=== PATIENT | female | born 1945 | race Asian ===

== ENCOUNTER → 2016-07-15 | Outpatient (CLI) | payer MEDICARE ==
[~2016-07-15] MED LIST: CYAN10007 PO; DIPH25CA79 PO; PANT40TA2 PO
[2016-07-15 12:11] LABS: BLOOD UREA NITROGEN 15 MG/DL (7-18); BUN/CREATININE RATIO 18; CREATININE SERUM 0.84 MG/DL (0.60-1.30); GFR ESTIMATED > 60
[2016-07-15] MEDS: GADOBUTROL 7.5 MMOL/7.5 ML (GADAVIST) VIAL IV ONE (12:33)
--- NOTE | 2016-07-15 18:42 | Diagnostic Imaging Report ---
PROCEDURE: MR imaging of the brain with and without contrast. INDICATION: Asymmetrical left-sided hearing loss. Patient reports that this has resolved. Now with back pain and balance problems. TECHNIQUE: Multiplanar, multisequence MR imaging of the brain was performed with and without contrast. CORRELATION STUDY: None. FINDINGS: There are no restricted areas of diffusion to suggest acute ischemia. Ventricles and sulci are age appropriate. Relatively normal lima-white signal differentiation. There are a few scattered areas of hyperintense T2 signal change, nonspecific but fairly mild, may be reflective of senescent changes, perhaps some small vessel ischemic disease. No edema pattern. No midline shift or mass effect. No significant abnormal gradient-echo signal characteristics. Post contrast imaging without abnormal intracranial enhancement. Craniocervical junction and midline structures including sella are unremarkable. There is not well visualization of the distal right vertebral artery with what appears to be dominant distal left vertebral artery. Normal expected intracranial flow voids otherwise present. Imaging through the level of the midbrain structures and internal auditory canals has an unremarkable appearance. There is no cerebellopontine angle mass lesion. Visualized seventh and eighth cranial nerve complex as well as internal auditory canals are unremarkable. Inner ear structures are unremarkable. IMPRESSION: Overall relatively unremarkable pre post contrast MRI examination of the brain. No acute intracranial abnormality. Dictated on workstation # [id number]
== END | disposition home or self-care (01) ==
LOC: RAD 11:14
PROVIDERS: ATTEND Otolaryngology Otolaryngology/Facial Plastic Surgery
DX: H91.92 Unspecified hearing loss, left ear (principal); R47.89 Other speech disturbances
CPT/HCPCS: 36415; 70553; 82565; 84520

== ENCOUNTER → 2016-12-02 | Outpatient (CLI) | payer MEDICARE ==
[2016-12-02 09:58] LABS: BASOPHILS % (AUTO) 1 % (0-10); EOSINOPHILS # (AUTO) 0.1 10^3/uL (0.0-0.3); EOSINOPHILS % (AUTO) 3 % (0-10); LYMPHOCYTES # (AUTO) 1.6 X 10^3 (1.0-4.0); LYMPHOCYTES % (AUTO) 38 % (12-44); MEAN CORPUSCULAR HEMOGLOBIN 30 PG (25-34); MEAN CORPUSCULAR HGB CONC 34 G/DL (32-36); MEAN CORPUSCULAR VOLUME 88 FL (80-99); MEAN PLATELET VOLUME 11.2 FL (7.4-10.4); MONOCYTES # (AUTO) 0.3 X 10^3 (0.0-1.0); MONOCYTES % (AUTO) 6 % (0-12); NEUTROPHILS # (AUTO) 2.2 X 10^3 (1.8-7.8); NEUTROPHILS % (AUTO) 52 % (42-75); PLATELET COUNT 199 10^3/uL (130-400); RED BLOOD COUNT 5.08 10^6/uL (4.35-5.85); RED CELL DISTRIBUTION WIDTH 12.9 % (10.0-14.5); WHITE BLOOD COUNT 4.3 10^3/uL (4.3-11.0)
[2016-12-02 10:19] LABS: ALANINE AMINOTRANSFERASE 16 U/L (0-55); ALBUMIN 4.2 GM/DL (3.2-4.5); ANION GAP 10 MMOL/L (5-14); ASPARTATE AMINO TRANSFERASE 15 U/L (5-34); BILIRUBIN,DIRECT 0.2 MG/DL (0.0-0.3); BILIRUBIN,INDIRECT 0.3 MG/DL; BILIRUBIN,TOTAL 0.5 MG/DL (0.1-1.0); BLOOD UREA NITROGEN 16 MG/DL (7-18); BUN/CREATININE RATIO 21; CALCIUM 9.2 MG/DL (8.5-10.1); CARBON DIOXIDE 23 MMOL/L (21-32); CHLORIDE 107 MMOL/L (98-107); CHOLESTEROL 215 MG/DL (< 200); CREATININE SERUM 0.75 MG/DL (0.60-1.30); DIRECT LDL 153 MG/DL (1-129); GFR ESTIMATED > 60; GLUCOSE 107 MG/DL (70-105); SODIUM 140 MMOL/L (135-145); TOTAL PROTEIN 7.9 GM/DL (6.4-8.2); TRIGLYCERIDES 124 MG/DL (<150); VLDL CHOLESTEROL 25 MG/DL (5-40)
[2016-12-03 13:24] LABS: VITAMIN D 25-HYDROXY (TOTAL) 32 ng/mL (30-100)
== END ==
LOC: LAB 09:15
PROVIDERS: ATTEND Family Medicine
DX: E78.5 Hyperlipidemia, unspecified (principal); D64.9 Anemia, unspecified; E55.9 Vitamin D deficiency, unspecified; R74.8 Abnormal levels of other serum enzymes; R73.9 Hyperglycemia, unspecified
CPT/HCPCS: 36415; 80053; 80061; 80076; 82248; 82306; 82607; 83036; 83540; 84439; 84443; 85025

== ENCOUNTER → 2017-08-22 | Outpatient (CLI) | payer MEDICARE ==
[2017-08-22 14:15] LABS: BASOPHILS % (AUTO) 1 % (0-10); EOSINOPHILS # (AUTO) 0.1 10^3/uL (0.0-0.3); EOSINOPHILS % (AUTO) 3 % (0-10); HEMATOCRIT 42 % (35-52); LYMPHOCYTES # (AUTO) 1.7 X 10^3 (1.0-4.0); LYMPHOCYTES % (AUTO) 34 % (12-44); MEAN CORPUSCULAR HEMOGLOBIN 30 PG (25-34); MEAN CORPUSCULAR HGB CONC 33 G/DL (32-36); MEAN CORPUSCULAR VOLUME 89 FL (80-99); MEAN PLATELET VOLUME 10.9 FL (7.4-10.4); MONOCYTES # (AUTO) 0.4 X 10^3 (0.0-1.0); MONOCYTES % (AUTO) 7 % (0-12); NEUTROPHILS # (AUTO) 2.8 X 10^3 (1.8-7.8); NEUTROPHILS % (AUTO) 56 % (42-75); PLATELET COUNT 190 10^3/uL (130-400); RED BLOOD COUNT 4.72 10^6/uL (4.35-5.85); RED CELL DISTRIBUTION WIDTH 12.8 % (10.0-14.5); WHITE BLOOD COUNT 5.1 10^3/uL (4.3-11.0)
[2017-08-22 14:33] LABS: ALANINE AMINOTRANSFERASE 20 U/L (0-55); ALBUMIN 4.1 GM/DL (3.2-4.5); ALKALINE PHOSPHATASE 83 U/L (40-136); BILIRUBIN,TOTAL 0.3 MG/DL (0.1-1.0); BUN/CREATININE RATIO 15; CALCIUM 9.1 MG/DL (8.5-10.1); CARBON DIOXIDE 21 MMOL/L (21-32); CHLORIDE 111 MMOL/L (98-107); CREATININE SERUM 0.78 MG/DL (0.60-1.30); GFR ESTIMATED > 60; GLUCOSE 144 MG/DL (70-105); POTASSIUM 3.9 MMOL/L (3.6-5.0); SODIUM 141 MMOL/L (135-145); TOTAL PROTEIN 7.5 GM/DL (6.4-8.2)
[2017-08-23 07:50] LABS: HEPATITIS C ANTIBODY C Non-Reactive (Non-Reactive)
== END ==
LOC: LAB 13:52
PROVIDERS: ATTEND Family Medicine
DX: R42 Dizziness and giddiness (principal); R73.9 Hyperglycemia, unspecified; R10.13 Epigastric pain
CPT/HCPCS: 36415; 80053; 83036; 84443; 85025; 86803

== ENCOUNTER 2017-12-10 10:02 | Emergency (ER) | payer MEDICARE ==
[~2017-12-10] VITALS: Ht 152.4 cm; Wt 52.2 kg
--- OUTSIDE RECORDS SUMMARY | 2017-12-10 10:08 | XMS REPORT | Continuity of Care Document ---
Author Author [facility] Organization [facility] Address Unknown Phone Unavailable Allergies Active Description Code Type Severity Reaction Onset Reported/Identified Relationship to Patient Clinical Status Yes No Known Drug Allergies [id number] Drug Allergy Unknown N/A 04/29/2015 Medications There is no data. Problems Date Dx Coded Attending Type Code Diagnosis Diagnosed By 04/01/2015 Ot 268.9 04/01/2015 Ot 780.79 04/01/2015 Ot 790.29 04/01/2015 Ot 786.50 04/01/2015 Ot 268.9 04/01/2015 Ot 719.41 04/01/2015 Ot 780.79 04/01/2015 Ot 785.1 04/01/2015 Ot 790.29 04/01/2015 ARIELLA SWEENEY DOQUELINE S Ot 250.00 04/01/2015 KATYNDTRIP DO, NICANOR S Ot 268.9 04/01/2015 KATYNDTRIP DOARIELLANICANOR S Ot 285.9 04/01/2015 KATYNDTRIP DOARIELLANICANOR S Ot 780.79 04/01/2015 KATYNDTRIP DO, NICANOR S Ot 268.9 04/01/2015 KATYNDTRIP DO, NICANOR S Ot 272.4 04/01/2015 KATYNDTRIP DOARIELLANICANOR S Ot 733.90 04/01/2015 KATYNDER DO, NICANOR S Ot 790.29 04/01/2015 MARY SALGADO DO Ot T78.3XXA ANGIONEUROTIC EDEMA, INITIAL ENCOUNTER 04/02/2015 Ot 268.9 04/02/2015 Ot 780.79 04/02/2015 Ot 790.29 04/02/2015 Ot 786.50 04/02/2015 Ot 268.9 04/02/2015 Ot 719.41 04/02/2015 Ot 780.79 04/02/2015 Ot 785.1 04/02/2015 Ot 790.29 04/02/2015 ORENDER DO, NICANOR S Ot 250.00 04/02/2015 [facility] S Ot 268.9 04/02/2015 [facility], NICANOR S Ot 285.9 04/02/2015 [facility], NICANOR S Ot 780.79 04/02/2015 [facility]END DO, NICANOR S Ot 268.9 04/02/2015 [facility], NICANOR S Ot 272.4 04/02/2015 [facility] DO, NICANOR S Ot 733.90 04/02/2015 [facility], NICANOR S Ot 790.29 04/02/2015 Ot 268.9 04/02/2015 Ot 780.79 04/02/2015 Ot 790.29 04/02/2015 Ot 786.50 04/02/2015 Ot 268.9 04/02/2015 Ot 719.41 04/02/2015 Ot 780.79 04/02/2015 Ot 785.1 04/02/2015 Ot 790.29 04/02/2015 [facility], NICANOR S Ot 250.00 04/02/2015 [facility] DO, NICANOR S Ot 268.9 04/02/2015 [facility] DO, NICANOR S Ot 285.9 04/02/2015 [facility] DO, NICANOR S Ot 780.79 04/02/2015 [facility] DO, NICANOR S Ot 268.9 04/02/2015 [facility] DO, NICANOR S Ot 272.4 04/02/2015 [facility] DO, NICANOR S Ot 733.90 04/02/2015 [facility] DO, NICANOR S Ot 790.29 04/22/2015 [facility] DO, NICANOR S Ot E55.9 04/22/2015 [facility], NICANOR S Ot E83.19 04/22/2015 [facility], NICANOR S Ot R73.9 04/22/2015 [facility], NICANOR S Ot Z00.00 04/24/2015 AMMON GUAJARDO MD Ot Z01.818 ENCOUNTER FOR OTHER PREPROCEDURAL EXAMIN 04/27/2015 AMMON GUAJARDO MD Ot Z01.818 04/29/2015 AMMON GUAJARDO MD Ot K21.0 GASTRO-ESOPHAGEAL REFLUX DISEASE WITH ES 04/29/2015 CASANDRA LOU, AMMON Ot K29.70 GASTRITIS, UNSPECIFIED, WITHOUT BLEEDING 04/29/2015 CASANDRA LOU, AMMON Anderson K44.9 DIAPHRAGMATIC HERNIA WITHOUT OBSTRUCTION 04/29/2015 CASANDRA LOU, AMMON Ot K57.90 DVRTCLOS OF INTEST, PART UNSP, W/O PERF 04/29/2015 AMMON GUAJARDO MD, Ot K64.0 FIRST DEGREE HEMORRHOIDS 04/29/2015 CASANDRA LOU, AMMON Anderson Z09 ENCNTR FOR F/U EXAM AFT TRTMT FOR COND O 04/29/2015 AMMON GUAJARDO MD, Ot Z12.11 ENCOUNTER FOR SCREENING FOR MALIGNANT NE 04/29/2015 CASANDRA LOU, MAMON Anderson Z86.010 PERSONAL HISTORY OF COLONIC POLYPS 04/30/2015 AMMON GUAJARDO MD Ot K21.0 04/30/2015 CASANDRA LOU, AMMON Ot K29.70 04/30/2015 CASANDRA LOU, AMMON Ot K44.9 04/30/2015 CASANDRA LOU, AMMON Ot K57.90 04/30/2015 CASANDRA LOU, AMMON Ot K64.0 04/30/2015 AMMON GUAJARDO MD Ot Z09 04/30/2015 CASANDRA LOU, AMMON Ot Z12.11 04/30/2015 AMMON GUAJARDO MD Ot Z86.010 04/30/2015 NICANOR SWEENEY DO S Ot R79.89 05/04/2015 NICANOR SWEENEY DO S Ot E55.9 05/04/2015 NICANOR SWEENEY DO S Ot E83.19 05/04/2015 NICANOR SWEENEY DO S Ot R73.9 05/04/2015 NICANOR SWEENEY DO S Ot Z00.00 07/17/2016 JOSE LOU, RICK Herrmann Ot H91.92 UNSPECIFIED HEARING LOSS, LEFT EAR 07/17/2016 RICK GARCIA MD Ot R47.89 OTHER SPEECH DISTURBANCES 08/05/2016 JOSE LOU, RICK Herrmann Ot H91.92 UNSPECIFIED HEARING LOSS, LEFT EAR 08/05/2016 RICK GARCIA MD Ot R47.89 OTHER SPEECH DISTURBANCES 08/15/2016 RICK GARCIA MD Ot H91.92 UNSPECIFIED HEARING LOSS, LEFT EAR 08/15/2016 RICK GARCIA MD Ot R47.89 OTHER SPEECH DISTURBANCES 12/02/2016 Ot 719.41 JOINT PAIN- SHLDER 12/02/2016 Ot 780.79 OTH MALAISE FATIGUE 12/02/2016 Ot 785.1 PALPITATIONS 12/02/2016 Ot 790.29 OTHER ABNORMAL GLUCOSE 12/02/2016 ORENDER DO, NICANOR S Ot 250.00 DIAB CHOCO WO COMPL, TYPE II OR UNSPEC TY 12/02/2016 ORENDER DO, NICANOR S Ot 268.9 VITAMIN D DEFICIENCY NOS 12/02/2016 ORENDER DO, NICANOR S Ot 285.9 ANEMIA NOS 12/02/2016 ORENDER DO, NICANOR S Ot 780.79 OTH MALAISE FATIGUE 12/02/2016 ORENDER DO, NICANOR S Ot 268.9 VITAMIN D DEFICIENCY NOS 12/02/2016 ORENDER DO, NICANOR S Ot 272.4 HYPERLIPIDEMIA NEC/NOS 12/02/2016 ORENDER DO, NICANOR S Ot 733.90 BONE CARTILAGE DIS NOS 12/02/2016 ORENDER DO, NICANOR S Ot 790.29 OTHER ABNORMAL GLUCOSE 12/02/2016 ORENDER DO, NICANOR S Ot E55.9 VITAMIN D DEFICIENCY, UNSPECIFIED 12/02/2016 ORENDER DO, NICANOR S Ot E83.19 OTHER DISORDERS OF IRON METABOLISM 12/02/2016 ORENDER DO, NICANOR S Ot R73.9 HYPERGLYCEMIA, UNSPECIFIED 12/02/2016 ORENDER DO, NICANOR S Ot Z00.00 ENCNTR FOR GENERAL ADULT MEDICAL EXAM W/ 12/02/2016 ORENDER DO, NICANOR S Ot R79.89 OTHER SPECIFIED ABNORMAL FINDINGS OF BLO 12/02/2016 RICK GARCIA MD Ot H91.92 UNSPECIFIED HEARING LOSS, LEFT EAR 12/02/2016 RICK GARCIA MD Ot R47.89 OTHER SPEECH DISTURBANCES 12/26/2016 ORENDER DO, NICANOR S Ot D64.9 ANEMIA, UNSPECIFIED 12/26/2016 ORENDER DO, NICANOR S Ot E55.9 VITAMIN D DEFICIENCY, UNSPECIFIED 12/26/2016 ORENDER DO, NICANOR S Ot E78.5 HYPERLIPIDEMIA, UNSPECIFIED 12/26/2016 NICANOR SWEENEY DO Ot R73.9 HYPERGLYCEMIA, UNSPECIFIED 12/26/2016 NICANOR SWEENEY DO Ot R74.8 ABNORMAL LEVELS OF OTHER SERUM ENZYMES 08/23/2017 NICANOR SWEENEY DO Ot R10.13 EPIGASTRIC PAIN 08/23/2017 NICANOR SWEENEY DO Ot R42 DIZZINESS AND GIDDINESS 08/23/2017 NICANOR SWEENEY DO Ot R73.9 HYPERGLYCEMIA, UNSPECIFIED Procedures There is no data. Results Test Result Range [id number] - 07/15/16 11:23 Serum or plasma urea nitrogen measurement (mass/volume) 15 mg/dL 7-18 Serum or plasma creatinine measurement (mass/volume) 0.84 mg/dL 0.60-1.30 Serum or plasma urea nitrogen/creatinine mass ratio 18 NRG Serum or plasma creatinine measurement with calculation of estimated glomerular filtration rate > NRG Complete blood count (CBC) with automated white blood cell (WBC) differential - 12/02/16 09:52 Blood leukocytes automated count (number/volume) 4.3 10*3/uL 4.3-11.0 Blood erythrocytes automated count (number/volume) 5.08 10*6/uL 4.35-5.85 Venous blood hemoglobin measurement (mass/volume) 15.1 g/dL 11.5-16.0 Blood hematocrit (volume fraction) 45 % 35-52 Automated erythrocyte mean corpuscular volume 88 [foz_us] 80-99 Automated erythrocyte mean corpuscular hemoglobin (mass per erythrocyte) 30 pg 25-34 Automated erythrocyte mean corpuscular hemoglobin concentration measurement ( mass/volume) 34 g/dL 32-36 Automated erythrocyte distribution width ratio 12.9 % 10.0-14.5 Automated blood platelet count (count/volume) 199 10*3/uL 130-400 Automated blood platelet mean volume measurement 11.2 [foz_us] 7.4-10.4 Automated blood neutrophils/100 leukocytes 52 % 42-75 Automated blood lymphocytes/100 leukocytes 38 % 12-44 Blood monocytes/100 leukocytes 6 % 0-12 Automated blood eosinophils/100 leukocytes 3 % 0-10 Automated blood basophils/100 leukocytes 1 % 0-10 Blood neutrophils automated count (number/volume) 2.2 10*3 1.8-7.8 Blood lymphocytes automated count (number/volume) 1.6 10*3 1.0-4.0 Blood monocytes automated count (number/volume) 0.3 10*3 0.0-1.0 Automated eosinophil count 0.1 10*3/uL 0.0-0.3 Automated blood basophil count (count/volume) 0.0 10*3/uL 0.0-0.1 Comprehensive metabolic panel - 12/02/16 09:52 Serum or plasma sodium measurement (moles/volume) 140 mmol/L 135-145 Serum or plasma potassium measurement (moles/volume) 4.0 mmol/L 3.6-5.0 Serum or plasma chloride measurement (moles/volume) 107 mmol/L 98-107 Carbon dioxide 23 mmol/L 21-32 Serum or plasma anion gap determination (moles/volume) 10 mmol/L 5-14 Serum or plasma urea nitrogen measurement (mass/volume) 16 mg/dL 7-18 Serum or plasma creatinine measurement (mass/volume) 0.75 mg/dL 0.60-1.30 Serum or plasma urea nitrogen/creatinine mass ratio 21 NRG Serum or plasma creatinine measurement with calculation of estimated glomerular filtration rate > NRG Serum or plasma glucose measurement (mass/volume) 107 mg/dL 70-105 Serum or plasma calcium measurement (mass/volume) 9.2 mg/dL 8.5-10.1 Serum or plasma total bilirubin measurement (mass/volume) 0.5 mg/dL 0.1-1.0 Serum or plasma alkaline phosphatase measurement (enzymatic activity/volume) 85 U/L 40-136 Serum or plasma aspartate aminotransferase measurement (enzymatic activity/ volume) 15 U/L 5-34 Serum or plasma alanine aminotransferase measurement (enzymatic activity/volume ) 16 U/L 0-55 Serum or plasma protein measurement (mass/volume) 7.9 g/dL 6.4-8.2 Serum or plasma albumin measurement (mass/volume) 4.2 g/dL 3.2-4.5 Liver function panel (serum or plasma alk phos, alb, total and direct bili, total protein, ALT, AST) - 12/02/16 09:52 Bilirubin direct 0.2 mg/dL 0.0-0.3 Serum or plasma indirect bilirubin measurement (mass/volume) 0.3 mg/ dL [facility] Lipid 1996 panel - 10/27/17 09:52 Serum or plasma triglyceride measurement (mass/volume) 124 mg/dL <150 Serum or plasma cholesterol measurement (mass/volume) 215 mg/dL < 200 Serum or plasma cholesterol in HDL measurement (mass/volume) 35 mg/ dL 40-60 Cholesterol in LDL [mass/volume] in serum or plasma by direct assay 153 mg/dL 1-129 Serum or plasma cholesterol in VLDL measurement (mass/volume) 25 mg/ dL 5-40 THYROID STIMULATING HORMONE - 12/02/16 09:52 THYROID STIMULATING HORMONE 2.30 u[iU]/mL 0.35-4.94 Serum or plasma thyroxine (T4) free measurement (mass/volume) - 12/02/16 09:52 Serum or plasma thyroxine (T4) free measurement (mass/volume) 1.06 ng/dL 0.70-1.48 Hemoglobin A1c - 12/02/16 09:52 Hemoglobin A1c 6.2 % 4.5-6.2 IRON TEST - 12/02/16 09:52 Serum or plasma iron measurement (mass/volume) 101 % 35- 180 25-hydroxyvitamin D measurement - 12/02/16 09:52 25-hydroxy vitamin D measurement 32 % 30-100 Cyanocobalamin measurement - 12/02/16 09:52 Vitamin B12 840 pg/mL 200-1000 25-hydroxyvitamin D measurement - 12/02/16 09:52 25-hydroxy vitamin D measurement 32 % 30-100 Complete blood count (CBC) with automated white blood cell (WBC) differential - 08/22/17 14:10 Blood leukocytes automated count (number/volume) 5.1 10*3/uL 4.3-11.0 Blood erythrocytes automated count (number/volume) 4.72 10*6/uL 4.35-5.85 Venous blood hemoglobin measurement (mass/volume) 14.0 g/dL 11.5-16.0 Blood hematocrit (volume fraction) 42 % 35-52 Automated erythrocyte mean corpuscular volume 89 [foz_us] 80-99 Automated erythrocyte mean corpuscular hemoglobin (mass per erythrocyte) 30 pg 25-34 Automated erythrocyte mean corpuscular hemoglobin concentration measurement ( mass/volume) 33 g/dL 32-36 Automated erythrocyte distribution width ratio 12.8 % 10.0-14.5 Automated blood platelet count (count/volume) 190 10*3/uL 130-400 Automated blood platelet mean volume measurement 10.9 [foz_us] 7.4-10.4 Automated blood neutrophils/100 leukocytes 56 % 42-75 Automated blood lymphocytes/100 leukocytes 34 % 12-44 Blood monocytes/100 leukocytes 7 % 0-12 Automated blood eosinophils/100 leukocytes 3 % 0-10 Automated blood basophils/100 leukocytes 1 % 0-10 Blood neutrophils automated count (number/volume) 2.8 10*3 1.8-7.8 Blood lymphocytes automated count (number/volume) 1.7 10*3 1.0-4.0 Blood monocytes automated count (number/volume) 0.4 10*3 0.0-1.0 Automated eosinophil count 0.1 10*3/uL 0.0-0.3 Automated blood basophil count (count/volume) 0.0 10*3/uL 0.0-0.1 Comprehensive metabolic panel - 08/22/17 14:10 Serum or plasma sodium measurement (moles/volume) 141 mmol/L 135-145 Serum or plasma potassium measurement (moles/volume) 3.9 mmol/L 3.6-5.0 Serum or plasma chloride measurement (moles/volume) 111 mmol/L 98-107 Carbon dioxide 21 mmol/L 21-32 Serum or plasma anion gap determination (moles/volume) 9 mmol/L 5-14 Serum or plasma urea nitrogen measurement (mass/volume) 12 mg/dL 7-18 Serum or plasma creatinine measurement (mass/volume) 0.78 mg/dL 0.60-1.30 Serum or plasma urea nitrogen/creatinine mass ratio 15 NRG Serum or plasma creatinine measurement with calculation of estimated glomerular filtration rate > NRG Serum or plasma glucose measurement (mass/volume) 144 mg/dL 70-105 Serum or plasma calcium measurement (mass/volume) 9.1 mg/dL 8.5-10.1 Serum or plasma total bilirubin measurement (mass/volume) 0.3 mg/dL 0.1-1.0 Serum or plasma alkaline phosphatase measurement (enzymatic activity/volume) 83 U/L 40-136 Serum or plasma aspartate aminotransferase measurement (enzymatic activity/ volume) 19 U/L 5-34 Serum or plasma alanine aminotransferase measurement (enzymatic activity/volume ) 20 U/L 0-55 Serum or plasma protein measurement (mass/volume) 7.5 g/dL 6.4-8.2 Serum or plasma albumin measurement (mass/volume) 4.1 g/dL 3.2-4.5 THYROID STIMULATING HORMONE - 08/22/17 14:10 THYROID STIMULATING HORMONE 2.26 u[iU]/mL 0.35-4.94 Hemoglobin A1c - 08/22/17 14:10 Blood hemoglobin A1C measurement (mass/volume) 5.8 % 4.0- 5.6 MEAN BLOOD GLUCOSE 120 % <=126 Serum hepatitis C virus antibody assay (units/volume) - 08/22/17 14:10 Serum hepatitis C virus antibody detection Non-Reactive Non-Reactive Encounters ACCT No. Visit Date/Time Discharge Status Pt. Type Provider Facility Loc./Unit Complaint [id number] 08/22/2017 13:52:00 08/22/2017 23:59:59 CLS Outpatient NICANOR SWEENEY DO [facility] LAB DYSPEPSIA, DIZZINESS [id number] 12/02/2016 09:15:00 12/02/2016 23:59:59 CLS Outpatient NICANOR SWEENEY DO [facility] LAB HLP, HYPERGLYCEMIA , ELEVATED LFTS [id number] 07/15/2016 11:14:00 07/15/2016 23:59:59 CLS Outpatient RICK GARCIA MD [facility] RAD ASSYMETRICAL LT HEARING LOSS [id number] 04/29/2015 08:22:00 04/29/2015 12:45:00 DIS Outpatient AMMON GUAJARDO MD [facility] SDC SCREENING,REFLUX [id number] 04/24/2015 05:34:00 04/24/2015 11:57:00 DIS Outpatient AMMON GUAJARDO MD [facility] PREOP SCREENING [id number] 04/10/2015 08:21:00 04/10/2015 23:59:59 CLS Outpatient NICANOR SWEENEY DO [facility] LAB ELEVATED FERRITIN [id number] 04/02/2015 07:42:00 04/02/2015 23:59:59 CLS Outpatient NICANOR SWEENEY DO [facility] RAD VITAMIN D DEFICIENCY,OSTEOPOROSIS [id number] 04/01/2015 08:31:00 04/01/2015 09:17:00 DIS Emergency SALGADO MARY BAUTISTA [facility] ER GUM SWELLING [id number] 08/12/2013 09:23:00 08/12/2013 23:59:59 CLS Outpatient NICANOR SWEENEY DO [facility] LAB HYPERLIPDEMIA, OSTEOPENIA [id number] 10/04/2012 07:42:00 10/04/2012 23:59:59 CLS Outpatient NICANOR SWEENEY DO [facility] LAB DM11,VIT D DIFF, FATIGUE,ANEMIA [id number] 11/08/2011 08:55:00 Document Registration [id number] 07/08/2011 09:45:00 Document Registration [id number] 05/28/2011 09:37:00 Document Registration [id number] 03/23/2011 09:52:00 Document Registration [id number] 01/06/2011 08:17:00 Document Registration 03/07/11 08/22/2017 11:18:36 08/22/2017 23:59:59 CLS Outpatient Nicanor Sweeney
--- NOTE | 2017-12-10 10:57 | ED Trauma-Multisystem ---
General Chief Complaint: Trauma-Non Activation Stated Complaint: FALL Nursing Triage Note: ARRIVED VIA EMS FROM PARK WHERE SHE FELL. ALL PT SAYS IS SHE HURTS. 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 HAVING TO REMIND PT TO STAY FLAT AND NOT TO ROUTING CLERK HER NECK. OPEN AREA TO BACK OF HEAD NOTED. Source of Information: Patient, Family Exam Limitations: Language Barrier History of Present Illness Date Seen by Provider: Dec 10, 2017 Time Seen by Provider: 10:15 Initial Comments The patient is a 72-year-old female of Greek extraction. Apparently she had been in a local park where she fell. She speaks some British and is agitated. The is with her and seems to speak better British. He reports that she has had trouble with fainting recently. He believes that she stepped on a rock or and a hole and rolled her ankle causing her to fall this morning. She is noted to have a laceration in the right parietal-occipital area. There is some blood which is appeared to have migrated from the wound to the right external ear. She is very uncooperative and frightened calling out about pain Occurred: Just Prior to Arrival Pain/Injury Location: Head Method of Injury: Fall Allergies and Home Medications Allergies Coded Allergies: No Known Drug Allergies (Verified , 04/29/15) Home Medications Cyanocobalamin (Vitamin B-12) 1,000 Mcg Tablet.er, 1,000 MCG PO DAILY, (Reported ) Pantoprazole Sodium 40 Mg Tablet.dr, 40 MG PO DAILY Prescribed by: AMMON GUAJARDO on 04/29/15 1052 Patient Home Medication List Home Medication List Reviewed: Yes Review of Systems Review of Systems Constitutional: see HPI, other (she does not participate in an attempt to perform review of systems) Past Xeawcmj-Yjlbmv-Iemjai Hx Patient Social History Recent Foreign Travel: No Contact w/Someone Who Travel: No Recent Infectious Disease Expo: No Past Medical History Surgeries: No Respiratory: No Cardiac: No Neurological: No Gastrointestinal: No Musculoskeletal: No Endocrine: No Cancer: No Psychosocial: No Integumentary: No Physical Exam Vital Signs Vital Signs - First Documented 12/10/17 10:20 Temp 98.0 Pulse 87 Resp 16 B/P (MAP) 140/82 (101) Pulse Ox 97 O2 Delivery Room Air Height, Weight, BMI Height: 5'0.00" Weight: 115lbs. oz. 52.228869fy; BMI Method:Estimated General Appearance: Anxious, Moderate Distress, Other (crying out in a mixture of British and Greek.) Head: Lacerations (apparently laceration in the right occipitoparietal region) Neck: Full Range of Motion Cardiovascular: Regular Rate, Rhythm Respiratory: Chest Non Tender, Lungs Clear, Normal Breath Sounds, No Accessory Muscle Use, No Respiratory Distress Back: Normal Inspection Extremity: Normal Capillary Refill, Normal Range of Motion Neurologic/Psychiatric: Alert, Other (agitated and crying out to pain) Fermin Coma Score Best Eye Response ([place]): (4) Open Spontaneously Best Verbal Response ([place]): (4) Confused Conversation Best Motor Response ([place]): (6) Obeys Commands Progress/Results/Core Measures Results/Orders My Orders Orders - BART BAKER MD Ct Head/Cervical Spine Wo (12/10/17 10:22) Vital Signs/I&O 12/10/17 10:20 Temp 98.0 Pulse 87 Resp 16 B/P (MAP) 140/82 (101) Pulse Ox 97 O2 Delivery Room Air Blood Pressure Mean: 101 Departure Communication (Admissions) CT scan shows 2 and possibly 3 areas of bleeding in the parenchyma superficially on the left. This is reported to be most consistent with a contrecoup injury. Impression Primary Impression: intracranial bleed/injury Disposition: 02 XFER [facility] Condition: Stable/Unchanged (ERASED) Transfer Time Spoke to Accepting Phy: 11:17 Transfer Progress Notes Called [facility]. I was connected to Dr. Sanchez who is on neurosurgery coverage. The findings were discussed and he accepted the patient. She is to be sent to the emergency room. [facility] is on its way and she will arrive by 1130. I then spoke to Dr. Meraz in the emergency room and he will assume her care on arrival. Method of Transfer: Air Departure-Patient Inst. Referrals: NICANOR ESTRELLA DO (PCP/Family) Primary Care Physician BART BAKER MD Dec 10, 2017 10:57
--- NOTE | 2017-12-10 11:08 | Diagnostic Imaging Report ---
PROCEDURE: CT head and CT cervical spine without contrast. TECHNIQUE: Multiple contiguous axial images were obtained through the brain and cervical spine without the use of intravenous contrast. Sagittal and coronal reformations through the cervical spine were then performed. Indication: Head and neck pain after patient fell backwards, no loss of consciousness. Comparison: Head CT 12/24/2007. Discussion: Head: Large right parietal subgaleal hematoma and soft tissue laceration. Acute intracranial blood products noted along the left frontal lobe which likely represents subarachnoid hemorrhage. Additional tiny subdural hematomas are also noted overlying the left frontal lobe with the largest measuring 18 x 4 mm. Blood tracks along the anterior left temporal lobe towards the basilar cistern. Small amount of blood also noted along the left anterior falx. Findings are consistent with acute contrecoup injury. No midline shift or hydrocephalus. No skull fracture identified. The orbits and mastoid air cells are unremarkable. Near complete opacification of the right sphenoid sinus. Cervical spine: Mild degenerative disease is noted diffusely. No fracture or subluxation is identified. Alignment is anatomic. Paraspinal soft tissues are unremarkable. Impression: 1. Acute subarachnoid and subdural hematomas overlying the left frontal lobe with some extension inferiorly along the left temporal lobe. Large right parietal scalp hematoma and laceration. 2. Negative cervical spine CT. 3. Critical findings were discussed with the emergency room physician at time of exam. Dictated by: Dictated on workstation # [id number]
[2017-12-10] MEDS ORDERED: TETANUS,DIPTH,PERTUSS P/F (BOOSTRIX) 0.5 ML VIAL IM ONE (11:30)
[2017-12-10 11:39] VITALS: BP 144/61
== END 2017-12-10 11:39 | disposition short-term general hospital (02) ==
LOC: EDUNIT# 10:02 → ER 10:03
DX: S06.9X9A Unspecified intracranial injury with loss of consciousness of unspecified duration, initial encounter (principal); R40.2142 Coma scale, eyes open, spontaneous, at arrival to emergency department; R40.2252 Coma scale, best verbal response, oriented, at arrival to emergency department; R40.2362 Coma scale, best motor response, obeys commands, at arrival to emergency department; W17.2XXA Fall into hole, initial encounter; Y92.830 Public park as the place of occurrence of the external cause
CPT/HCPCS: 51702; 70450; 72125; 90471; 90715; 99291; 99292

== ENCOUNTER 2017-12-22 14:37 | Inpatient (IN) | payer MEDICARE ==
[~2017-12-22] VITALS: Ht 152.4 cm; Wt 51.3 kg
--- OUTSIDE RECORDS SUMMARY | 2017-12-22 15:54 | XMS REPORT | Continuity of Care Document ---
Author Author [facility] Organization [facility] Address Unknown Phone Unavailable Allergies Active Description Code Type Severity Reaction Onset Reported/Identified Relationship to Patient Clinical Status Yes No Known Drug Allergies [id number] Drug Allergy Unknown N/A 04/29/2015 Medications There [...] ORENDER DO, NICANOR S Ot 250.00 [facility]02[facility] 268.9 04/02/2015 [facility] S Ot 285.9 04/02/2015 [facility] S Ot 780.79 04/02/2015 OREND DO, NICANOR S Ot 268.9 04/02/2015 [facility] S Ot 272.4 04/02/2015 [facility] S Ot 733.90 04/02/2015 [facility], N[facility] S Ot 790.29 04/02/2015 Ot 268.9 04/02/2015 Ot 780.79 04/02/2015 Ot 790.29 04/02/2015 Ot 786.50 04/02/2015 Ot 268.9 04/02/2015 Ot 719.41 04/02/2015 Ot 780.79 04/02/2015 Ot 785.1 04/02/2015 Ot 790.29 04/02/2015 [facility] S Ot 250.00 04/02/2015 [facility] S Ot 268.9 04/02/2015 [facility], N[facility] S Ot 285.9 04/02/2015 [facility] N[facility] S Ot 780.79 04/02/2015 [facility] N[facility] S Ot 268.9 04/02/2015 [facility] S Ot 272.4 04/02/2015 [facility], NICAONR S Ot 733.90 04/02/2015 [facility] S Ot 790.29 04/22/2015 [facility] S Ot E55.9 04/22/2015 [facility] S Ot E83.19 04/22/2015 [facility] S Ot R73.9 04/22/2015 [facility] S Ot Z00.00 04/24/2015 AMMON [...] SCREENING FOR MALIGNANT NE 04/29/2015 CASANDRA LOU, AMMON Anderson Z86.010 PERSONAL HISTORY OF COLONIC POLYPS [...] NICANOR S Ot E78.5 HYPERLIPIDEMIA, UNSPECIFIED 12/26/2016 ORENDER DO, NICANOR S Ot R73.9 HYPERGLYCEMIA, UNSPECIFIED 12/26/2016 ORENDER DO, NICANOR S Ot R74.8 ABNORMAL LEVELS OF OTHER SERUM ENZYMES 08/23/2017 ORENDER DO, NICANOR S Ot R10.13 EPIGASTRIC PAIN 08/23/2017 KATYNDER DO, NICANOR S Ot R42 DIZZINESS AND GIDDINESS 08/23/2017 KATYNDER DO, NICANOR S Ot R73.9 HYPERGLYCEMIA, UNSPECIFIED 12/10/2017 BART BAKER MD Ot R40.2142 COMA SCALE, EYES OPEN, SPONTANEOUS, EMR 12/10/2017 BART BAKER MD Ot R40.2252 COMA SCALE, BEST VERBAL RESPONSE, ORIENT 12/10/2017 BART BAKER MD Ot R40.2362 COMA SCALE, BEST MOTOR RESPONSE, OBEYS C 12/10/2017 BART BAKER MD Ot R45.1 RESTLESSNESS AND AGITATION 12/10/2017 BART BAKER MD Ot S06.9X9A UNSP INTRACRANIAL INJURY W LOC OF [facility] D 12/10/2017 BART BAKER MD Ot W17.2XXA FALL INTO HOLE, INITIAL ENCOUNTER 12/10/2017 BART BAKER MD Ot Y92.[address] OCCURRENCE O 12/12/2017 BART BAKER MD Ot R40.2142 COMA SCALE, EYES OPEN, SPONTANEOUS, EMR 12/12/2017 BART BAKER MD Ot R40.2252 COMA SCALE, BEST VERBAL RESPONSE, ORIENT 12/12/2017 BART BAKER MD Ot R40.2362 COMA SCALE, BEST MOTOR RESPONSE, OBEYS C 12/12/2017 BART BAKER MD Ot R45.1 RESTLESSNESS AND AGITATION 12/12/2017 BART BAKER MD Ot S06.9X9A UNSP INTRACRANIAL INJURY W LOC OF [facility] D 12/12/2017 ABRT BAKER MD Ot W17.2XXA FALL INTO HOLE, INITIAL ENCOUNTER 12/12/2017 BART BAKER MD Ot Y92.[address] [facility] OCCURRENCE O Procedures There is no data. Results Test Result Range [id number] - 07/15/16 11:23 Serum or plasma urea [...] indirect bilirubin measurement (mass/volume) 0.3 mg/ dL [facility] Lipid 1996 panel - 12/02/16 09:52 Serum or plasma triglyceride measurement (mass/volume) [...] Status Pt. Type Provider Facility Loc./Unit Complaint [id number] 12/10/2017 10:03:00 12/10/2017 11:39:00 DIS Emergency BART BAKER MD [facility] ER FALL [id number] 08/22/2017 13:52:00 08/22/2017 23:59:59 CLS Outpatient KATYNDER NICANOR BAUTISTA S [facility] LAB DYSPEPSIA, DIZZINESS [id number] 12/02/2016 09:15:00 12/02/2016 23:59:59 CLS Outpatient NICANOR SWEENEY DO S [facility] LAB HLP, HYPERGLYCEMIA , ELEVATED LFTS [id number] 07/15/2016 11:14:00 07/15/2016 23:59:59 CLS Outpatient RICK GARCIA MD [facility] RAD ASSYMETRICAL LT HEARING LOSS [id number] 04/29/2015 08:22:00 04/29/2015 12:45:00 DIS Outpatient AMMON GUAJARDO MD [facility] SDC SCREENING,REFLUX [id number] 04/24/2015 05:34:00 04/24/2015 11:57:00 DIS Outpatient AMMON GUAJARDO MD [facility] PREOP SCREENING [id number] 04/10/2015 08:21:00 04/10/2015 23:59:59 CLS Outpatient KATYNDARIELLA DOMINIQUE DOQUELINE S [facility] LAB ELEVATED FERRITIN [id number] 04/02/2015 07:42:00 04/02/2015 23:59:59 CLS Outpatient KATYNDARIELLA DOMINIQUE DOQUELINE S [facility] RAD VITAMIN D DEFICIENCY,OSTEOPOROSIS [id number] 04/01/2015 08:31:00 04/01/2015 09:17:00 DIS Emergency MARY SALGADO DO [facility] ER GUM SWELLING [id number] 08/12/2013 09:23:00 08/12/2013 23:59:59 CLS Outpatient KATYNDARIELLA DOMINIQUE DOQUELINE S [facility] LAB HYPERLIPDEMIA, OSTEOPENIA [id number] 10/04/2012 07:42:00 10/04/2012 23:59:59 CLS Outpatient NICANOR SWEENEY DO [facility] LAB DM11,VIT D DIFF, FATIGUE,ANEMIA [id number] 12/22/2017 14:37:00 PEN Preadmit KARRIE LOU, JAGJIT Willingham INTRACRANIAL INJURY WITH LOC [id number] 11/08/2011 08:55:00 Document Registration [id number] 07/08/2011 09:45:00 Document Registration [id number] 05/28/2011 09:37:00 Document Registration [id number] 03/23/2011 09:52:00 Document Registration [id number] 01/06/2011 08:17:00 Document Registration 03/07/11 12/18/2017 10:43:33 12/18/2017 23:59:59 CLS Outpatient Nicanor Sweeney
--- NOTE | 2017-12-22 16:14 | Physical Therapy Evaluation ---
PT Evaluation-General Medical Diagnosis Admission Date Dec 22, 2017 at 15:50 Medical Diagnosis: Subarachnoid hemorrhage Onset Date: Dec 10, 2017 Therapy Diagnosis Therapy Diagnosis: impaired mobility, strength, endurance, balance Height/Weight Height (Feet): 5 Height (Inches): 0.00 Weight (Pounds): 115 Referral Physician: Howard Reason for Referral: Evaluation/Treatment Medical History Current History Pt. fell at home. Sustained a subarachnoid hemorrhage. Transferred to [place]. Came home but failing at home. Home health nursing recommended inpatient rehab. 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 Patient completes activity by themselves 4 Supervision or touching assist (CGA). Lamar provide cues , steadying assist 3 The helper provides less than half the effort to complete the activity 2 The helper provides more than half the effort to complete the activity 1 Dependent. The helper does all the effort to complete an activity 7 Patient refused to complete or attempt activity 9 The patient did not perform the activity before the current illness or injury 88 Not attempted due to Medical conditions or safety concerns Bed Mobility: 7 Transfers (B,C,W/C) (FIM): 7 Gait: 6 It is unclear but she seems to have used a rolling walker sometimes. PT Evaluation-Current Subjective Patient in chair pre tx, agrees to PT, she has pain of 7/10 on the back and right side of her head. Pt/Family Goals to be independent at home Objective Patient Orientation: Person, Place, Situation ROM/Strength ROM Lower Extremities WNL Strenght Lower Extremities right lower extremity (hip flexion 3/5, knee flexion 4/5, knee extension 4/5, dorsiflexion 4/5), left lower extremity (hip flexion 3/5, knee flexion 4/5, knee extension 4/5, dorsiflexion 4/5) Neuromuscular (Tone, Coordination, Reflexes) Patient has no abnormal tone. Tracking and peripheral vision both seem good, patient reports no changes in vision but she does report changes in hearing in the right ear. Sensory Vision: Functional Hearing: Impaired Sensation Right Lower Extremit: Intact Sensation Left Lower Extremity: Intact Transfers Functional Schu[place] Measure 0=Not Assessed/NA 4=Minimal Assistance 1=Total Assistance 5=Supervision or Setup 2=Maximal Assistance 6=Modified Schuyler 3=Moderate Assistance 7=Complete IndependenceIRFPAI Quality Coding Scale 6 Independent with activity with or without an assistive device 5 Patient requires set up or clean up by helper. Patient completes activity by themselves 4 Supervision or touching assist (CGA). Lamar provide cues , steadying assist 3 The helper provides less than half the effort to complete the activity 2 The helper provides more than half the effort to complete the activity 1 Dependent. The helper does all the effort to complete an activity 7 Patient refused to complete or attempt activity 9 The patient did not perform the activity before the current illness or injury 88 Not attempted due to Medical conditions or safety concerns Transfers (B, C, W/C) (FIM): 4 Scootin Rollin Roll Left to Right (QC): 6 Supine to/from Sit: 6 Sit to/from Stand: 4 Sit to Lying (QC): 6 Lying to Sitting/Side of Bed(Q: 6 Sit to Stand (QC): 4 Chair/Rkw-kp-Fyjgr Xfer(QC): 4 Car Transfer (QC): 4 Patient performs bed mobility and supine <-> sit with mod I, sit <-> stand and transfers with CGA, car transfer CGA. Gait Does the Patient Walk?: Yes Mode of Locomotion: Walk Anticipated Mode of Locomotion: Walk Gait (FIM): 4 Walk 10 feet (QC): 4 Walk 50 ft with 2 Turns(QC): 4 Walk 150 ft (QC): 4 Walking 10ft/uneven surface-QC: 4 Distance: 150' Gait Level of Assist: 4 Gait Persons Needed: 1 Gait Assistive Device: FWW Comments/Gait Description Patient can ambulate 150' with a rolling walker with CGA (including 50' with at least 2 turns of 90 degrees and 10' over an uneven surface). Patient has slightly uncoordinated stepping on the right side and is unsteady at times but no reid LOB. Wheelchair Training Does the Pt Use a Wheelchair?: No Stairs Stairs (FIM): 1 #of Steps: 1 Level of Assist: 4 1 Step (curb) (QC): 4 Assistive Device: Walker Patient can go up and down 1 step using a rolling walker with CGA. Patient needs cues for foot placement and safety. Balance Sitting Static: Normal Sitting Dynamic: Normal Standing Static: Fair Standing Dynamic: Fair Assessment/Needs Patient has impairments in strength, endurance, balance. She is at risk for a fall. Patient gets dizzy immediately upon standing and needs a few moments to recover. Rehab Potential: Fair PT Short Term Goals Short Term Goals Time Frame: Dec 29, 2017 Transfers (B,C,W/C) (FIM): 5 Gait (FIM): 5 Gait Distance Comment: 200' Gait Level of Assist: 5 Gait Assistive Device: FWW PT Moving Worker Goals Fpc Goals PT Fpc Goals Time Frame: Jan 12, 2018 Transfers (B,C,W/C) (FIM): 6 Sit to Lying (QC): 6 Lying-Sitting on Side/Bed(QC): 6 Sit to Stand (QC): 6 Rollin Roll Left to Right (QC): 6 Chair/Fko-cs-Cvilt Xfer(QC): 6 Car Transfer (QC): 6 Gait (FIM): 6 Distance: 300' Walk 10 feet (QC): 6 Walk 10ft-Uneven Surface(QC): 6 Walk 50ft with 2 Turns (QC): 6 Walk 150 ft (QC): 6 Gait Level of Assist: 6 Gait Assistive Device: FWW Stairs (FIM): 5 # of Steps: 12 1 Step (curb) (QC): 4 4 Steps (QC): 4 12 Steps (QC): 4 Stairs Level Of Assist: 5 PT Plan Problem List Problem List: Activity Tolerance, Functional Strength, Safety, Balance, Gait, Transfer Treatment/Plan Treatment Plan: Continue Plan of Care Treatment Plan: Education, Functional Activity Morgan, Functional Strength, Group Therapy, Gait, Safety, Therapeutic Exercise, Transfers Treatment Duration: Jan 12, 2018 Frequency: At least 5 of 7 days/Wk (IRF) Estimated Hrs Per Day: 1.5 hours per day Patient and/or Family Agrees t: Yes Safety Risks/Education Patient Education: Gait Training, Transfer Techniques, Steps, Correct Positioning, Safety Issues Teaching Recipient: Patient Teaching Methods: Demonstration, Discussion Response to Teaching: Reinforcement Needed Discharge Recommendations Plan Patient will perform bed mobility and transfer training, balance and endurance training, functional strengthening, stair training, gait training, and education , to improve functional mobility and independence at home. Therapy D/C Recommendations: Home w/ Family Support Time/GCodes Time In: 1545 Time Out: 1600 Total Billed Treatment Time: 15 Total Billed Treatment 1 visit RAMAKRISHNA TREJO PT Dec 22, 2017 16:14
[2017-12-22 16:31] VITALS: BP_SYST 133; BP_SYST 167; BP_DIAS 82; BP_DIAS 92
--- NOTE | 2017-12-22 17:12 | PM&R Post Admission Assessment ---
Post Admission Physician Asses Date seen by provider: Dec 22, 2017 Time seen by provider: 16:45 The preadmission screen agrees with the post admission assessment that the patient is a good candidate for inpatient rehabilitation. The patient will have a comprehensive program of inpatient rehabilitation with a goal of maximizing level of functional independence prior to discharge home with spouse and [facility]. The patient will have PT/OT ninety minutes per day , each discipline, five days a week for 2 weeks for for gait, strengthening, conditioning, balance, ADLs, any patient/family/caregiver training as necessary. Speech therapy to do cognitive assessment and treat as indicated. Rehabilitation nursing to assist with bowel, bladder, skin, wound care, medication administration, pain management. Water Hydrant Installer to assist with discharge planning, community reentry. SCD's for DVT prophylaxis. She appears to be well motivated to participate in three hours of therapy a day. She should be able to tolerate three hours of therapy a day from a medical standpoint. She should benefit from the three hours of therapy a day. She has a reasonable discharge plan, reasonable discharge rehabilitation goals and a supportive family.However she had been caring for her spouse who has dementia and patient will most likely require additional assistance from family or others upon discharge. She has various comorbidities that need to be closely monitored with medications and treatments adjusted on a daily basis as needed. These include: HX of recent Fall and skull fracture associated with Hearing loss and impaired balance with associated dizziness/UTI Barriers to discharge for this patient who had been independent prior to this are for her to be modified independent to supervision for ADLs and mobility skills prior to discharge home with spouse, so as to lessen the burden of the caregivers. Risks for this patient include: 1. Fall 2. Fracture 3. DVT 4. Pulmonary embolism 5. Wound infection 6. Skin breakdown 7. Contractures 8. Poorly controlled pain 9. Urinary retention 10. Recurrent UTI 11. Respiratory infection 12. Aspiration 13 recurrent bleed Estimated Length of Stay: 10-to 14 days Prognosis: Rehab prognosis appears good for goal of discharge home with family modified independent to supervision for ADLs and mobility skills. Date Identified: Dec 22, 2017 Time Identified: 17:00 Action Plan to Resolve CSMI: Current meds from home admit reviewed General: Alert, Oriented X3, Cooperative HEENT: PERRLA, EOMI, Mucous Memb Moist/[place], Other (abrasion scalp healing well ) Neck: Supple, No JVD Lungs: Clear to Auscultation Heart: Regular Rate Abdomen: Normal Bowel Sounds, Soft, No Tenderness Extremities: No Edema Neuro: Strength at 5/5 X4 Ext, Sensation Intact, Other (Impaired balance and c/ o dizziness) Psych/Mental Status: Mental Status NL JAGJIT YOON MD Dec 22, 2017 17:11
--- NOTE | 2017-12-22 17:37 | HISTORY AND PHYSICAL ---
DATE OF SERVICE: 12/22/2017 ADMISSION HISTORY AND PHYSICAL CHIEF COMPLAINT: Loss of balance and dizziness. 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 The patient was found to have a traumatic subarachnoid hemorrhage with loss of consciousness. The patient was treated medically and referred for therapies. The patient was placed on Cipro for a UTI and bacitracin to scalp wounds and sent home with home health care. She had been independent prior to this, but currently utilizing a walker due to impaired balance and dizziness. Dr. Sanchez, neurosurgeon at [facility], recommended a followup with an ENT doctor regarding right hearing loss. Currently, the patient is only utilizing bacitracin and completing a course of Cipro for a UTI. The patient was referred from home by home health care and her PCP, Dr. Sweeney. Currently, she requires assistance for ADLs and mobility skills and complaining of dizziness and impaired balance.She is min assist for transfers and CGA for gait with WW.She is min assist for groomimg and bathing and Mod assist for Dressing. PAST MEDICAL HISTORY: Falls, apparently, she hit her head near her garage door on cement. 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 She apparently did not want to go to a rehab facility or usp facility due to the fact that she must take care of her , but was not doing well herself upon discharge with home health care. ENT did see patient for a right temporal bone fracture. They did not recommend any surgical intervention, but recommended follow up with ENT on an outpatient basis. PAST SURGICAL HISTORY: None. ALLERGIES: No known medication allergies. FAMILY HISTORY: Noncontributory. SOCIAL HISTORY: Essentially as per above. REVIEW OF SYSTEMS: A 10-point review of systems is significant for impaired balance, dizziness and falls. MEDICATIONS: Bacitracin daily to scalp wound, Cipro 250 mg p.o. b.i.d. for seven days beginning on 12/18/2017. PHYSICAL EXAMINATION: GENERAL: Significant for a pleasant female, appearing her stated age, alert and oriented x3, in no acute distress. There is some difficulty with communication, believably, part of that is due to her being having [place]ian as a second language. VITAL SIGNS: She is afebrile, pulse is 70, respirations 16, blood pressure 133/82, and O2 sat 98% on room air. HEENT: Vision, speech, and hearing grossly intact. No oral lesion is noted.There is an abrasion dollar size rt occiput with contusion rt oocipital scalp NECK: Supple without mass. She is able to name the number of fingers accurately at 18 inches. HEART: Regular rhythm. CHEST: Clear. ABDOMEN: Soft, nontender, bowel sounds present. EXTREMITIES: No leg edema, no calf tenderness. MUSCULOSKELETAL: She has functional active range of motion in all 4 extremities. NEUROLOGIC: Sensation is grossly intact to touch. Strength is functional in both upper limbs.Hip flex bilateral 3/5 distal lower limb strength 4/5. She does have impaired dynamic standing balance and complains of dizziness. Cognition appears grossly intact. IMPRESSION: 1. Fall with resulting subarachnoid hemorrhage, treated medically by Neurosurgery at [facility] with associated intracerebral hemorrhage. 2. History of falls. 3. Dizziness as a sequelae of falls. 4. Urinary tract infection, completing a course of Cipro. 5. Right temporal bone fracture status post fall with some right hearing loss. 6. Abrasion rt occipital scalp as per above 7.DVT prophylaxis SCDS PLAN: The patient is admitted for a comprehensive program of inpatient rehabilitation with goal of maximizing level of functional independence prior to discharge home with spouse or possibly to an assisted living setting. The patient will have PT, OT 90 minutes per day each discipline 5 days a week for 2 weeks with the above goals in mind. Please see post-admission physician evaluation, which is in a separate document for details of plan of care. Speech Therapy to do a cognitive and speech assessment. Treat as indicated. Rehabilitation nursing assist with bowel, bladder, skin care, medication administration, wound care, pain management and Rn Lab with discharge planning, community reentry, and tramadol and Tylenol for pain control. Consider meclizine for dizziness. Follow up with ENT on an outpatient basis. Follow up with Dr. Sweeney, PCP as per her schedule. Check admission labs, SCDs for DVT prophylaxis. ESTIMATED LENGTH OF STAY: Two weeks. PROGNOSIS: Rehab prognosis appears good for goal of discharging home hopefully with spouse, modified independent to supervision for ADLs and mobility skills. 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 Will follow-up with JASMINE /Dr Sweeney if there is any other family available as caregivers. DIET: Regular. CODE STATUS: Full code. Job ID: [id number] DocumentID: [id number] Dictated Date: 12/22/2017 17:04:56 Tank Cleaner Date: 12/22/2017 17:37:27 Dictated By: JAGJIT YOON MD MTDD
[2017-12-22] MEDS ORDERED: FLU QUADRIvalent (5+ YOA) 2018-2019 (AFLURIA) 0.5 ML IM ONE (18:15)
[2017-12-22] MEDS: CIPROFLOXACIN 500 MG (CIPRO) TABLET PO SCH (20:36)
[2017-12-22] MEDS: BACITRACIN OINTMENT 28 GM TUBE TOP SCH (20:37)
[2017-12-23 05:01] VITALS: BP 116/80
[2017-12-23 07:53] LABS: BASOPHILS % (AUTO) 0 % (0-10); EOSINOPHILS # (AUTO) 0.1 10^3/uL (0.0-0.3); EOSINOPHILS % (AUTO) 2 % (0-10); HEMATOCRIT 39 % (35-52); HEMOGLOBIN 12.8 G/DL (11.5-16.0); LYMPHOCYTES # (AUTO) 1.2 X 10^3 (1.0-4.0); LYMPHOCYTES % (AUTO) 17 % (12-44); MEAN CORPUSCULAR HEMOGLOBIN 30 PG (25-34); MEAN CORPUSCULAR HGB CONC 33 G/DL (32-36); MEAN CORPUSCULAR VOLUME 89 FL (80-99); MEAN PLATELET VOLUME 10.3 FL (7.4-10.4); MONOCYTES # (AUTO) 0.4 X 10^3 (0.0-1.0); MONOCYTES % (AUTO) 7 % (0-12); NEUTROPHILS % (AUTO) 74 % (42-75); PLATELET COUNT 302 10^3/uL (130-400); RED BLOOD COUNT 4.33 10^6/uL (4.35-5.85); RED CELL DISTRIBUTION WIDTH 12.9 % (10.0-14.5); WHITE BLOOD COUNT 6.7 10^3/uL (4.3-11.0)
[2017-12-23] MEDS: CIPROFLOXACIN 500 MG (CIPRO) TABLET PO SCH ×2 (07:55→20:43)
[2017-12-23] MEDS: BACITRACIN OINTMENT 28 GM TUBE TOP SCH ×2 (07:56→20:44)
[2017-12-23 08:15] LABS: ALANINE AMINOTRANSFERASE 28 U/L (0-55); ALBUMIN 3.9 GM/DL (3.2-4.5); ALKALINE PHOSPHATASE 88 U/L (40-136); BILIRUBIN,TOTAL 0.4 MG/DL (0.1-1.0); BUN/CREATININE RATIO 19; CALCIUM 9.3 MG/DL (8.5-10.1); CARBON DIOXIDE 26 MMOL/L (21-32); CHLORIDE 102 MMOL/L (98-107); CREATININE SERUM 0.78 MG/DL (0.60-1.30); GFR ESTIMATED > 60; GLUCOSE 188 MG/DL (70-105); POTASSIUM 3.8 MMOL/L (3.6-5.0); SODIUM 139 MMOL/L (135-145); TOTAL PROTEIN 7.5 GM/DL (6.4-8.2)
--- NOTE | 2017-12-23 10:07 | Occupational Therapy Eval ---
OT Evaluation-General/PLF Medical Diagnosis Admission Date Dec 22, 2017 at 15:50 Medical Diagnosis: Subarachnoid hemorrhage Onset Date: Dec 10, 2017 Therapy Diagnosis Therapy Diagnosis: Weakness Height/Weight Height (Feet): 5 Height (Inches): 0.00 Weight (Pounds): 110 Weight (Ounces): 0.0 Precautions Precautions/Isolations: Fall Prevention, Standard Precautions Safety Interventions: None Weight Bear Status Weight Bearing Restriction: Weight Bearing/Tolerated Referral Physician: Howard Referral Reason: Activity Tolerance, Self Care, Evaluation/Treatment, Strengthening/ROM Medical History Current History Pt. fell at home. Sustained a subarachnoid hemorrhage. Transferred to [place]. Came home but failing at home. Home health nursing recommended inpatient rehab. 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 Reviewed History: Yes Social History Home: Single Level Current Living Status: Spouse Entry Into Home: Stairs Without Railing Steps Into Home: 2 ADL-Prior Level of Function Functional [place] Measure 0=Not Assessed/NA 4=Minimal Assistance 1=Total Assistance 5=Supervision or Setup 2=Maximal Assistance 6=Modified [place] 3=Moderate Assistance 7=Complete [place] ADL PLOF Comments Pt. was independent with daily tasks. Pt. does cooking/cleaning/driving. Self Care Self Care: (Code the patient's need for assistance with bathing, dressing, using the toilet, or eating prior to the current illness, exacerbation, or injury.) Functional Cognition Functional Cognition: (Code the patient's need for assistance with planning regular tasks, such as shopping or remembering to take medicaiton prior to the current illness, exacerbation, or injury.) Pt. has difficulty understanding the question of equipment at home. Does have a new walker, but is unable to answer the question of bathroom set up. 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 reports that she has a headache and is dizzy. Has already had medication. Appearance Pt. is sitting on side of bed when OT comes into room. Watching a show on her phone. Mental Status/Objective Patient Orientation: Person Pt. is somewhat impulsive at times and does require re-direction at times. Unsure if this is due to language barrier. Current Hand Dominance: Right Upper Extremity ROM WFL Upper Extremity Strength WFL ADL-Treatment Functional [place] Measure 0=Not Assessed/NA 4=Minimal Assistance 1=Total Assistance 5=Supervision or Setup 2=Maximal Assistance 6=Modified [place] 3=Moderate Assistance 7=Complete IndependenceIRFPAI Quality Coding Scale 6 Independent with activity with or without an assistive device 5 Patient requires set up or clean up by helper. Patient completes activity by themselves 4 Supervision or touching assist (CGA). [place] provide cues , steadying assist 3 The helper provides less than half the effort to complete the activity 2 The helper provides more than half the effort to complete the activity 1 Dependent. The helper does all the effort to complete an activity 7 Patient refused to complete or attempt activity 9 The patient did not perform the activity before the current illness or injury 88 Not attempted due to Medical conditions or safety concerns Grooming (FIM): 4 (Min assist to brush hair only due to wound on back of hair. Pt. stood at sink with CGA to brush hair and teeth.) Oral Hygiene (QC): 4 Bathing (FIM): 4 (Pt. requires CGA in stance anytime that she stands in shower due to dizziness.) Shower/Bathe Self (QC): 4 Upper Body Dressing (FIM): 3 (Pt. is able to doff sweatshirt and button up by doffing over head, but has difficulty getting over her head and requests for OT to assist. pt. is able to thread bilateral arms.) Upper Body Dressing (QC): 3 Lower Body Dressing (FIM): 3 (Pt. requires cues to sit and doff clothing due to safety. Pt. is able to pull pants off over hips but requires assist to pull off over one foot. Pt. is able to doff socks, but has difficulty putting them back on. Pt. is able to thread feet through pants, but requires assist to don over hips in stance.) Lower Body Dressing (QC): 3 On/Off Footwear (QC): 3 Transfers (B, C, W/C) (FIM): 4 (CGA to ambulate with walker.) Shower Transfer (FIM): 4 Other Treatments Pt. agrees to shower in room. After ADLs, ambulated to therapy gym with CGA and increased time needed. Pt. does report dizziness. Completed AE training with sock aide and dressing stick as pt. reports that she was having difficulty with this at home. Pt. is able to doff with min assist and don socks with mod assist, trialing two different sock aides. OT/PT co-treated at this point due to pt's fatigue level, and level of dizziness. Worked on safety with transfers , endurance training, and rehab goal education. OT addressed ADL education while PT addressed functional mobility goals, ambulation goals, and safety. Will continue to address cognition and vision. All needs met and pt. with PT for continued treatment. Education OT Patient Education: Correct positioning, Exercise program, Modified ADL techniques, Progress toward Goal/Update tx plan, Purpose of tx/functional activities, Reviewed precautions, Rehab process, Transfer techniques, Use of adapted equipment Teaching Recipient: Patient Teaching Methods: Demonstration, Discussion Response to Teaching: Verbalize Understanding, Return Demonstration OT Short Term Goals Short Term Goals Time Frame: Dec 30, 2017 Eating(FIM): 6 Grooming(FIM): 5 Bathing(FIM): 5 Upper Body Dressing(FIM): 5 Lower Body Dressing(FIM): 5 Toileting(FIM): 5 Transfers (B,C,W/C) (FIM): 5 Toilet/Commode Transfer(FIM): 5 Shower Transfer(FIM): 5 Additional Short Term Goals: 1-Demonstrate ADL Tasks, 2-Verbalize Understanding , 3-ImproveStrength/Morgan 1=Demonstrate adherence to instructed precautions during ADL tasks. 2=Patient will verbalize/demonstrate understanding of assistive devices/ modifications for ADL. 3=Patient will improve strength/tolerance for activity to enable patient to perform ADL's. OT Longterm Goals Longterm Goals Time Frame: Jan 06, 2018 Eating (FIM): 7 Eating (QC): 6 Groomin Oral Hygiene (QC): 6 Bathing(FIM): 5 Shower/Bathe Self (QC): 5 Upper Body Dressing(FIM): 6 Upper Body Dressing (QC): 6 Lower Body Dressing(FIM): 6 Lower Body Dressing (QC): 6 On/Off Footwear (QC): 6 Toileting(FIM): 6 Toileting Hygiene (QC): 6 Transfers (B,C,W/C) (FIM): 6 Toilet/Commode Transfer(FIM): 6 Toilet/Commode Transfer (QC): 6 Shower Transfer(FIM): 5 Social Interaction(FIM): 7 Problem Solving(FIM): 7 Memory(FIM): 7 Additional Goals: 1-Demonstrate ADL Tasks, 2-Verbalize Understanding, 3- ImproveStrength/Morgan 1=Demonstrate adherence to instructed precautions during ADL tasks. 2=Patient will verbalize/demonstrate understanding of assistive devices/ modifications for ADL. 3=Patient will improve strength/tolerance for activity to enable patient to perform ADL's. OT Education/Plan Problem List/Assessment Assessment: Decreased Activ Tolerance, Decreased Safety Aware, Impaired Cognition, Impaired Funct Balance, Impaired I ADL's, Impaired Self-Care Skills Discharge Recommendations Plan/Recommendations: Continue POC Therapy D/C Recommendations: Home w/ Family Support, Occupational Therapy Home Care, Scheduled Assistance Comment Equipment needs to be determined. Treatment Plan/Plan of Care Treatment,Training & Education: Yes Patient would benefit from OT for education, treatment and training to promote independence in ADL's, mobility, safety and/or upper extremity function for ADL' s. Plan of Care: ADL Retraining, Functional Mobility, Group Exercise/Act as Ind, UE Funct Exercise/Act Treatment Duration: Jan 06, 2018 Frequency: At least 5 of 7 days/Wk (IRF) Estimated Hrs Per Day: 1.5 hours per day Agreement: Yes Rehab Potential: Good Time/GCodes Start Time: 08:15 Stop Time: 09:45 Total Time Billed (hr/min): 90 Billed Treatment Time 8779-9110 1, EVM x 15minutes 0150-9883 ADL x 45minutes 2044-3537 ADL x 30minutes co-treat with PT. Please see note for designated roles. MARLENA DUPONT OT Dec 23, 2017 10:07
--- NOTE | 2017-12-23 10:57 | Physical Therapy Daily Note ---
PT Daily Note-Current Subjective Agreeable to PT. Reports feeling dizzy throughout the entire treatment. Reports she feels tired as well. Mental Status Patient Orientation: Person, Place, Time, Situation Transfers Functional [place] Measure 0=Not Assessed/NA 4=Minimal Assistance 1=Total Assistance 5=Supervision or Setup 2=Maximal Assistance 6=Modified [place] 3=Moderate Assistance 7=Complete IndependenceIRFPAI Quality Coding Scale 6 Independent with activity with or without an assistive device 5 Patient requires set up or clean up by helper. Patient completes activity by themselves 4 Supervision or touching assist (CGA). [place] provide cues , steadying assist 3 The helper provides less than half the effort to complete the activity 2 The helper provides more than half the effort to complete the activity 1 Dependent. The helper does all the effort to complete an activity 7 Patient refused to complete or attempt activity 9 The patient did not perform the activity before the current illness or injury 88 Not attempted due to Medical conditions or safety concerns Transfers (B, C, W/C) (FIM): 4 (CGA) Sit to/from Stand: 4 (skilled cues for hand placement 75% of the time; CGA for safety. ) Car Transfer (QC): 3 multiple sit to stand transfers during treatment session. Gait Training Does the Patient Walk?: Yes Gait (FIM): 2 Distance (FIM): 0=206-55 ft Distance: 125 ft x 4 reps; 50 ft x 4 reps Walk 10 feet (QC): 4 Walk 50 ft with 2 Turns(QC): 4 Walk 150 ft (QC): 88 Walking 10ft/uneven surface-QC: 4 Gait Assistive Device: FWW Reports if she looks down, her dizziness increases; unsteady at times and requires CGA for safety. Amb in/out of the bathroom x 2 with FWW with close CGA; toilet transfer with CGA and CGA to min lico tot stand at the sink to wash her hands. Stair Training Stair Training: Handrails/: 2 handrails Stairs (FIM): 2 #of Steps: 4 1 Step (curb) (QC): 4 4 Steps (QC): 4 12 Steps (QC): 88 Stairs: Pattern: Step to skilled cues for safety. Exercises NuStep Minutes: 15 (to improve LE strength and functional activity tolerance. ) Treatments Co treat part of session with OT to address functional sequencing and safety with transfers to better perform ADL's and transitional movement during ADL"s; used the skill of 2 clinicians to educated on safety and sequencing with self care and mobiltiy as well as to educated on her goals and POC. She demonstrates decreased safety awareness and is impulsive at times--thus requiring 2 clinicians to educate and manage her functional mobility. Also worked individually, with PT focusing on functional mobility in her room, bathroom, stairs and gait mobility. Assessment Impulsive at times. Unsteady with gait and trasnfers; requires assist with all mobility for safety. Chair alarm in use and activated post treatment this date. She will beneift from skilled PT to address safety and functional mobilty to allow her to return home as before. Pleasant, cooperative. PT Short Term Goals Short Term Goals Time Frame: Dec 29, 2017 Transfers (B,C,W/C) (FIM): 5 Gait (FIM): 5 Gait Distance Comment: 200' Gait Level of Assist: 5 Gait Assistive Device: FWW PT Mold Carrier Goals Mold Carrier Goals PT Intermediate Goals Time Frame: Jan 12, 2018 Transfers (B,C,W/C) (FIM): 6 Sit to Lying (QC): 6 Lying-Sitting on Side/Bed(QC): 6 Sit to Stand (QC): 6 Rollin Roll Left to Right (QC): 6 Chair/Xbr-zu-Trjoc Xfer(QC): 6 Car Transfer (QC): 6 Gait (FIM): 6 Distance: 300' Walk 10 feet (QC): 6 Walk 10ft-Uneven Surface(QC): 6 Walk 50ft with 2 Turns (QC): 6 Walk 150 ft (QC): 6 Gait Level of Assist: 6 Gait Assistive Device: FWW Stairs (FIM): 5 # of Steps: 12 1 Step (curb) (QC): 4 4 Steps (QC): 4 12 Steps (QC): 4 Stairs Level Of Assist: 5 PT Plan Problem List Problem List: Activity Tolerance, Functional Strength, Safety, Balance, Gait, Transfer, Bed Mobility Treatment/Plan Treatment Plan: Continue Plan of Care Treatment Plan: Education, Functional Activity [place], Functional Strength, Group Therapy, Gait, Safety, Therapeutic Exercise, Transfers Treatment Duration: Jan 12, 2018 Frequency: At least 5 of 7 days/Wk (IRF) Estimated Hrs Per Day: 1.5 hours per day Patient and/or Family Agrees t: Yes Safety Risks/Education Patient Education: Safety Issues Teaching Recipient: Patient Teaching Methods: Discussion Response to Teaching: Reinforcement Needed Discharge Recommendations Therapy D/C Recommendations: Physical Therapy Home Care Time/GCodes Time In: 915 Time Out: 1045 (co treat 915-945 (30 min)) Total Billed Treatment Time: 90 Total Billed Treatment visit FA 60 GT 15 EX 15 MISHA HOUSE PT Dec 23, 2017 10:57
--- NOTE | 2017-12-23 12:43 | Consultation-Hospitalist ---
HPI History of Present Illness: HPI/Chief Complaint CC: Debility and dizziness following head injury HPI: This is a 72yo female of Dr Sweeney's who presented to the IRF for debility resolution following a severe fall with head injury with SAH and temporal bone fx requiring NSG evaluation by Dr Sanchez. She has had severe dizziness following this episode and requires PT/OT before returning home. Scalp hematoma remains and pain is decreased but she has difficulty with dizziness especially when she looks down. She recently had a UTI dx and placed on Cipro. Source: RN/MD Exam Limitations: other (patient sleeping soundly) Date Seen 12/23/17 Attending Physician Roger Lawrence MD PCP Breanna Sweeney DO Referring Physician Date of Admission Dec 22, 2017 at 15:50 Home Medications & Allergies Home Medications Reviewed patient Home Medication Reconciliation performed by pharmacy medication reconciliations data collection technician and/or nursing. Patients Allergies have been reviewed. Allergies Allergies Coded Allergies No Known Drug Allergies (Verified04/29/15) Past Gerfykq-Chhchc-Emnpqe Hx Past Med/Social Hx: Reviewed Nursing Past Med/Soc Hx, Reviewed and Corrections made Patient Social History Alcohol Use: Denies Use Recreational Drug Use: No Physical Abuse Screen: No Sexual Abuse: No Recent Foreign Travel: No Contact w/other who traveled: No Recent Hopitalizations: Yes (SUBARACHNOID HEMORRHAGE) Recent Infectious Disease Expo: No Seasonal Allergies Seasonal Allergies: No Past Medical History : No Gastrointestinal: Gastroesophageal Reflux, Hemorrhoids Musculoskeletal: Fractures History of Blood Disorders: No Family History Patient reports no known family medical history. Review of Systems ROS-Unable to Obtain: pt is sleeping and language limitation Constitutional: see HPI Physical Exam Physical Exam Vital Signs Vital Signs - First Documented 12/22/17 16:31 Temp 98.0 Pulse 70 Resp 16 B/P (MAP) 133/82 (99) Pulse Ox 98 O2 Delivery Room Air Capillary Refill : Height, Weight, BMI Height: 5'0.00" Weight: 110lbs. 0.0oz. 49.961916bv; 21.5 BMI Method:Estimated General Appearance: No Apparent Distress, WD/WN, Other (asleep) Respiratory: Chest Non Tender, Lungs Clear, Normal Breath Sounds, No Accessory Muscle Use, No Respiratory Distress Cardiovascular: Regular Rate, Rhythm, No Edema, No Gallop, No JVD, No Murmur, Normal Peripheral Pulses Neurologic/Psychiatric: Other (sleeping) Skin: Normal Color, Warm/Dry Results Results/Procedures Labs Laboratory Tests 12/23/17 07:45 Patient resulted labs reviewed. Assessment/Plan Assessment and Plan Assess & Plan/Chief Complaint Assessment: Severe head injury with acute SAH 12/10/[address] Sanchez non-surgical management UTI on Cipro Severe dizziness due to head injury Plan: Monitor BP Complete Cipro Reviewed labs. Diagnosis/Problems Diagnosis/Problems (1) SAH (subarachnoid hemorrhage) Status: Acute (2) UTI (urinary tract infection) Status: Acute Qualifiers: Urinary tract infection type: acute cystitis Hematuria presence: without hematuria Qualified Codes: N30.00 - Acute cystitis without hematuria (3) Dizziness Status: Acute (4) Fall Status: Acute Qualifiers: Encounter type: subsequent encounter Qualified Codes: W19.XXXD - Unspecified fall, subsequent encounter Clinical Quality Measures DVT/VTE Risk/Contraindication: Risk Factor Score Per Nursin RFS Level Per Nursing on Admit: 2=Moderate CORBIN WINTER DO Dec 23, 2017 12:43
[2017-12-23 18:00] VITALS: BP 126/78
[2017-12-24 05:54] VITALS: BP 118/75
[2017-12-24] MEDS: CIPROFLOXACIN 500 MG (CIPRO) TABLET PO SCH ×2 (09:05→20:12)
[2017-12-24] MEDS: BACITRACIN OINTMENT 28 GM TUBE TOP SCH ×2 (09:05→20:13)
[2017-12-24 17:03] VITALS: BP 106/74
[2017-12-25 05:44] VITALS: BP 130/85
--- NOTE | 2017-12-25 08:00 | Occupational Ther Daily Note ---
OT Current Status-Daily Note Subjective Pt alert, sitting in recliner. Pt agrees to therapy. Pt dizzy with movement or bending forward. No c/o pain. Mental Status/Objective Patient Orientation: Person, Place, Time, Situation Functional [place] Measure 0=Not Assessed/NA 4=Minimal Assistance 1=Total Assistance 5=Supervision or Setup 2=Maximal Assistance 6=Modified [place] 3=Moderate Assistance 7=Complete [place] ADL-Treatment Pt able to open packages and containers then use regular utensils to eat. Pt ambulated with CGA using FWW to bathroom. SBA using FWW and grabbars to transfer to toilet then completed toileting with SBA. Doffed clothing with min A due to dizziness. Assist to start shower then min A for bathing due to dizziness bending forward and decreased balance. Pt donned shirt by self after set up then mod A with lower body dressing due to dizziness. After therapy, pt sitting EOB with call light/phone in reach. Reported to nrsg. Functional [place] Measure 0=Not Assessed/NA 4=Minimal Assistance 1=Total Assistance 5=Supervision or Setup 2=Maximal Assistance 6=Modified [place] 3=Moderate Assistance 7=Complete IndependenceIRFPAI Quality Coding Scale 6 Independent with activity with or without an assistive device 5 Patient requires set up or clean up by helper. Patient completes activity by themselves 4 Supervision or touching assist (CGA). [place] provide cues , steadying assist 3 The helper provides less than half the effort to complete the activity 2 The helper provides more than half the effort to complete the activity 1 Dependent. The helper does all the effort to complete an activity 7 Patient refused to complete or attempt activity 9 The patient did not perform the activity before the current illness or injury 88 Not attempted due to Medical conditions or safety concerns Eating (FIM): 7 Eating (QC): 6 Bathing (FIM): 4 Bathing Location: L Arm, R Arm, L Upper Leg, R Upper Leg, L Lower Leg ( including foot), Chest, Abdomen, Buttocks, Perineal Area Shower/Bathe Self (QC): 3 Upper Body (FIM): 5 Upper Body Dressing (QC): 5 Lower Body Dressing (FIM): 2 Lower Body Dressing (QC): 2 On/Off Footwear (QC): 2 Toileting (FIM): 5 Toileting Hygiene (QC): 4 Toilet/Commode Transfer (FIM): 5 Toilet Transfer (QC): 4 Shower Transfer(FIM): 4 OT Short Term Goals Short Term Goals Time Frame: Dec 30, 2017 Eating(FIM): 6 Grooming(FIM): 5 Bathing(FIM): 5 Upper Body Dressing(FIM): 5 Lower Body Dressing(FIM): 5 Toileting(FIM): 5 Transfers (B,C,W/C) (FIM): 5 Toilet/Commode Transfer(FIM): 5 Shower Transfer(FIM): 5 Additional Short Term Goals: 1-Demonstrate ADL Tasks, 2-Verbalize Understanding , 3-ImproveStrength/Morgan 1=Demonstrate adherence to instructed precautions during ADL tasks. 2=Patient will verbalize/demonstrate understanding of assistive devices/ modifications for ADL. 3=Patient will improve strength/tolerance for activity to enable patient to perform ADL's. OT Blast Furnace Supervisor Goals Long-Term Goals Time Frame: Jan 06, 2018 Eating (FIM): 7 Eating (QC): 6 Groomin Oral Hygiene (QC): 6 Bathing(FIM): 5 Shower/Bathe Self (QC): 5 Upper Body Dressing(FIM): 6 Upper Body Dressing (QC): 6 Lower Body Dressing(FIM): 6 Lower Body Dressing (QC): 6 On/Off Footwear (QC): 6 Toileting(FIM): 6 Toileting Hygiene (QC): 6 Transfers (B,C,W/C) (FIM): 6 Toilet/Commode Transfer(FIM): 6 Toilet/Commode Transfer (QC): 6 Shower Transfer(FIM): 5 Social Interaction(FIM): 7 Problem Solving(FIM): 7 Memory(FIM): 7 Additional Goals: 1-Demonstrate ADL Tasks, 2-Verbalize Understanding, 3- ImproveStrength/Morgan 1=Demonstrate adherence to instructed precautions during ADL tasks. 2=Patient will verbalize/demonstrate understanding of assistive devices/ modifications for ADL. 3=Patient will improve strength/tolerance for activity to enable patient to perform ADL's. OT Education/Plan Discharge Recommendations Plan/Recommendations: Continue POC Treatment Plan/Plan of Care Patient would benefit from OT for education, treatment and training to promote independence in ADL's, mobility, safety and/or upper extremity function for ADL' s. Plan of Care: ADL Retraining, Functional Mobility, Group Exercise/Act as Ind, UE Funct Exercise/Act Treatment Duration: Jan 06, 2018 Frequency: At least 5 of 7 days/Wk (IRF) Estimated Hrs Per Day: 1.5 hours per day Agreement: Yes Rehab Potential: Good Time/GCodes Start Time: 07:00 Stop Time: 08:00 Total Time Billed (hr/min): 60 Billed Treatment Time 1 visit-ADL 4 (60 min) MISHA KC Dec 25, 2017 08:00
--- NOTE | 2017-12-25 08:52 | PM & R (SOAP) Progress Note ---
Subjective This was a face to face visit with the patient. Date Seen by Provider: Dec 24, 2017 Time Seen by Provider: 19:15 Subjective/Events-last exam Patient was seen in her room this evening Case discussed with RN Patient CGA for transfers Patient c/o abrasion rt occiput causing pain when she lies on it would be difficult to cover with dressing due to hair.will f/u with PCP patient also with hearing problems and dizziness-will check with PCP re obtaining local ENT consult Review of Systems HEENT: Other (dizziness and Hearing loss tenderness around occipital abrasion) Neurological: Weakness Objective Physician Exam Last Set of Vital Signs Vital Signs Date Time Temp Pulse Resp B/P (MAP) Pulse Ox O2 Delivery O2 Flow Rate FiO2 12/25/17 05:44 97.7 90 18 130/85 (100) 99 Room Air Capillary Refill : I&O Intake and Output 12/24/17 23:59 Intake Total 1230 ml Balance 1230 ml Intake Oral 1230 ml # Voids 12 # Bowel Movements 1 General: Alert, Oriented X3, Cooperative HEENT: PERRLA, EOMI, Mucous Memb Moist/[place], Other (abraion occipital scalp with bruising) Neck: Supple, No JVD Lungs: Clear to Auscultation Heart: Regular Rate Abdomen: Normal Bowel Sounds, Soft, No Tenderness Extremities: No Edema Neuro: Strength at 5/5 X4 Ext, Sensation Intact, Other (Impaired balance and c/ o dizziness) Psych/Mental Status: Mental Status NL Results Lab Data Laboratory Tests 12/23/17 07:45: White Blood Count 6.7, Red Blood Count 4.33L, Hemoglobin 12.8, Hematocrit 39, Mean Corpuscular Volume 89, Mean Corpuscular Hemoglobin 30, Mean Corpuscular Hemoglobin Concent 33, Red Cell Distribution Width 12.9, Platelet Count 302, Mean Platelet Volume 10.3, Neutrophils (%) (Auto) 74, Lymphocytes (%) (Auto) 17 , Monocytes (%) (Auto) 7, Eosinophils (%) (Auto) 2, Basophils (%) (Auto) 0, Neutrophils # (Auto) 5.0, Lymphocytes # (Auto) 1.2, Monocytes # (Auto) 0.4, Eosinophils # (Auto) 0.1, Basophils # (Auto) 0.0, Sodium Level 139, Potassium Level 3.8, Chloride Level 102, Carbon Dioxide Level 26, Anion Gap 11, Blood Urea Nitrogen 15, Creatinine 0.78, Estimat Glomerular Filtration Rate > 60, BUN/ Creatinine Ratio 19, Glucose Level 188H, Calcium Level 9.3, Corrected Calcium 9.4, Total Bilirubin 0.4, Aspartate Amino Transf (AST/SGOT) 13, Alanine Aminotransferase (ALT/SGPT) 28, Alkaline Phosphatase 88, Total Protein 7.5, Albumin 3.9 Assessment/Plan Assessment and Plan SAH/ICB secondary to fall treated medically at [facility] Neurosurgery [place] Abrasion Rt Occipital scalp s/p fall Dizziness and Hearing disturbance rt ear UTI completed course of cipro Rt temporal bone fracture s/p fall with dizziness and hearing loss Plan Continue Pt/OT/wound care/pain management ST to assess F/U with PCP DR Sweeney Consult ENT Team Conference 12-27-17 This Note completed tardy due to password issues with EMR on day of rounding Co-Morbidities that are continuing to impact the rehab process: (include details ) JAGJIT YOON MD Dec 25, 2017 08:51
--- NOTE | 2017-12-25 08:57 | ST Cognitive Linguistic Eval ---
Speech Evaluation-General Medical Diagnosis Subarachnoid hemorrhage Onset Date: Dec 10, 2017 Therapy Diagnosis Therapy Diagnosis: Cognitive-communication Precautions Precautions: Fall Precautions/Isolations: Fall Prevention, Standard Precautions Referral Referring Physician: Roger Lawrence MD Medical History Pertinent Medical History: Dementia Reviewed History: Yes Social History Current Living Status: Spouse Speech PLF-Current Status Prior Level of Function Patient was independent for all daily activites. Subjective Patient was cooperative and pleasant for the evaluation. Language Eval: Auditory Comprehends Simple Yes/No Ques: Mild Follows 1-Step Commands: Moderate Language Eval: Verbal Language Completes Spontaneous Greeting: Functional Word Finding: Mild States Basic Personal Info: Mild Language Evaluation: Reading Did not assess. Cognitive Patient Orientation Patient is oriented to person and place. Objective Cognitive Domain Attention: Mild Memory: Moderate Problem Solving: Moderate Executive Functions: Moderate Objective Formal/Standardized Tests [facility] Cognitive/Communication Assessment Results Orientation: 01/17, Organization/Sequencin/4, Problem Solving 04/09, Comparisons: 02/09, Auditory Comprehension: 06/15, Immediate Recall: 3/3, Delayed Recall: 1/3 with verbal cuing, Final Recall: 0/3 with verbal cues. Oral Motor/Speech Production Within functional limits Impression Patient presents with moderate deficits in memory, word recall and problem solving. Patient is recommended for skilled ST based on test results and clinical observation to improve safety and independence in order to return home. Communication/Social Cognition Comprehension: 3 Expression: 3 Social Interaction: 4 Problem Solvin Memory: 3 Speech Patient Assess Expression of Ideas/Wants: Exhibits (3) Understanding Verbal Content: Usually Understands (3) Brief Interview-Mental Status: Yes Repetition of Three Words: Three (3) Temporal Orientation: Year: Correct (3) Temporal Orientation: Month: Accurate within 5 days(2) Temporal Orientation: Day: Correct (1) Recall : Wear to say "Sock": No, could not recall (0) Recall : Color: Yes, after cueing (1) Recall : Bed: Yes,after cueing (1) Memory/Recall Ability: That he or she is in a hsp/hsp unit Speech Short Term Goals Short Term Goals Short Term Goals Patient will be able to recall verbally presented words within 5 minutes at 90% accuracy. Patient will be able to state the name and function of verbally or visually presented items with 90% accuracy. Patient will be able to complete problem solving tasks with 90% accuracy. 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 Social Interaction: 7 Problem Solvin Memory: 7 Speech-Plan Patient/Family Goals Patient/Family Goals: To return home. Treatment Plan Speech Therapy Treatment Plan: Continue Plan of Care Patient is recommended for skilled ST with focus on memory and problem solving to promote improved safety and independence. Frequency: 5 times per week Estimated Hrs Per Day: .5 hour per day Rehab Potential: Good Pt/Family Agrees to Plan: Yes Safety Risks/Education Teaching Recipient: Patient Teaching Methods: Discussion Response to Teaching: Verbalize Understanding Time Speech Therapy Time In: 08:30 Speech Therapy Time Out: 08:50 Total Billed Time: 20 Billed Treatment Time 1, TEDDY IBRAHIM Dec 25, 2017 08:57
[2017-12-25] MEDS: ACETAMINOPHEN 500 MG TAB (TYLENOL) PO PRN (09:01)
[2017-12-25] MEDS: CIPROFLOXACIN 500 MG (CIPRO) TABLET PO SCH ×2 (09:01→20:22)
[2017-12-25] MEDS: BACITRACIN OINTMENT 28 GM TUBE TOP SCH ×2 (09:41→20:22)
--- NOTE | 2017-12-25 11:07 | PM & R (SOAP) Progress Note ---
Subjective This was a face to face visit with the patient. Date Seen by Provider: Dec 25, 2017 Time Seen by Provider: 07:35 Subjective/Events-last exam Patient was seen in her room this AM Patient Min assist for transfers Review of Systems HEENT: Other (pain from contusion abrasion rt occiput) Neurological: Weakness Objective Physician Exam Last Set of Vital Signs Vital Signs Date Time Temp Pulse Resp B/P (MAP) Pulse Ox O2 Delivery O2 Flow Rate FiO2 12/25/17 09:00 Room Air 12/25/17 05:44 97.7 90 18 130/85 (100) 99 Capillary Refill : I&O Intake and Output 12/25/17 00:00 Intake Total 1230 ml Balance 1230 ml Intake Oral 1230 ml # Voids 12 # Bowel Movements 1 General: Alert, Oriented X3, Cooperative HEENT: PERRLA, EOMI, Mucous Memb Moist/[place], Other (abraion occipital scalp with bruising) Neck: Supple, No JVD Lungs: Clear to Auscultation Heart: Regular Rate Abdomen: Normal Bowel Sounds, Soft, No Tenderness Extremities: No Edema Neuro: Strength at 5/5 X4 Ext, Sensation Intact, Other (Impaired balance and c/ o dizziness) Psych/Mental Status: Mental Status NL Results Lab Data Laboratory Tests 12/23/17 07:45: White Blood Count 6.7, Red Blood Count 4.33L, Hemoglobin 12.8, Hematocrit 39, Mean Corpuscular Volume 89, Mean Corpuscular Hemoglobin 30, Mean Corpuscular Hemoglobin Concent 33, Red Cell Distribution Width 12.9, Platelet Count 302, Mean Platelet Volume 10.3, Neutrophils (%) (Auto) 74, Lymphocytes (%) (Auto) 17 , Monocytes (%) (Auto) 7, Eosinophils (%) (Auto) 2, Basophils (%) (Auto) 0, Neutrophils # (Auto) 5.0, Lymphocytes # (Auto) 1.2, Monocytes # (Auto) 0.4, Eosinophils # (Auto) 0.1, Basophils # (Auto) 0.0, Sodium Level 139, Potassium Level 3.8, Chloride Level 102, Carbon Dioxide Level 26, Anion Gap 11, Blood Urea Nitrogen 15, Creatinine 0.78, Estimat Glomerular Filtration Rate > 60, BUN/ Creatinine Ratio 19, Glucose Level 188H, Calcium Level 9.3, Corrected Calcium 9.4, Total Bilirubin 0.4, Aspartate Amino Transf (AST/SGOT) 13, Alanine Aminotransferase (ALT/SGPT) 28, Alkaline Phosphatase 88, Total Protein 7.5, Albumin 3.9 Assessment/Plan Assessment and Plan SAH/ICB secondary to fall treated medically at [facility] Kaylee CORTEZ neurosurgery Abrasion Rt occipital scalp s/p fall Dizziness and hearing loss rt s/p fall and rt termporal bone fracture UTI completed course of cipro Plan Continue PT/OT/wound care Team Conference 12-27-17 Consult ENT re dizziness and hearing loss-see orders F/U with DR Sweeney PCP Co-Morbidities that are continuing to impact the rehab process: (include details ) JAGJIT YOON MD Dec 25, 2017 11:06
--- NOTE | 2017-12-25 12:02 | Physical Therapy Daily Note ---
PT Daily Note-Current Subjective Pt. agrees to Rx reluctantly stating she is easily dizzy and is concerned because her head is bleeding. Pain Numeric Pain Scale: 0-No Pain Comment: dizziness main c/o, pain reported in right side of head if pt. lays on [facility] Mental Status Patient Orientation: Person, Place, Time, Situation Transfers Functional [place] Measure 0=Not Assessed/NA 4=Minimal Assistance 1=Total Assistance 5=Supervision or Setup 2=Maximal Assistance 6=Modified [place] 3=Moderate Assistance 7=Complete IndependenceIRFPAI Quality Coding Scale 6 Independent with activity with or without an assistive device 5 Patient requires set up or clean up by helper. Patient completes activity by themselves 4 Supervision or touching assist (CGA). [place] provide cues , steadying assist 3 The helper provides less than half the effort to complete the activity 2 The helper provides more than half the effort to complete the activity 1 Dependent. The helper does all the effort to complete an activity 7 Patient refused to complete or attempt activity 9 The patient did not perform the activity before the current illness or injury 88 Not attempted due to Medical conditions or safety concerns Transfers (B, C, W/C) (FIM): 4 Scootin Rollin Supine to/from Sit: 4 Sit to/from Stand: 4 pt. requested assist sup to sit and c/o discomfort in head wound as well as onset of dizziness Gait Training Does the Patient Walk?: Yes Gait (FIM): 4 Distance (FIM): 3=150 ft (160x2) Gait Level of Assist: 4 Gait Persons Needed: 1 Gait Assistive Device: FWW needs instruction for position in FWW Exercises Supine Ex: Ankle pumps, Rolling, Glut sets, Heel Slides, Hip abd/add Supine Reps: 10 NuStep Minutes: 10 NuStep Workload: 2 Treatments seated cervical rotation (limited) , slight neck flexion, head still and eye movement exercises side to side and up down, as well as coordination exercises for eyes closed finger to varying body landmarks and knee to smith slide, pt. having difficulty with coordination etc. Assessment Current Status: Fair Progress limited by dizziness and occas discomfort in head wound PT Short Term Goals Short Term Goals Time Frame: Dec 29, 2017 Transfers (B,C,W/C) (FIM): 5 Gait (FIM): 5 Gait Distance Comment: 200' Gait Level of Assist: 5 Gait Assistive Device: FWW PT Senior Care Goals Senior Care Goals PT Senior Care Goals Time Frame: Jan 12, 2018 Transfers (B,C,W/C) (FIM): 6 Sit to Lying (QC): 6 Lying-Sitting on Side/Bed(QC): 6 Sit to Stand (QC): 6 Rollin Roll Left to Right (QC): 6 Chair/Lyq-ia-Ahgyg Xfer(QC): 6 Car Transfer (QC): 6 Gait (FIM): 6 Distance: 300' Walk 10 feet (QC): 6 Walk 10ft-Uneven Surface(QC): 6 Walk 50ft with 2 Turns (QC): 6 Walk 150 ft (QC): 6 Gait Level of Assist: 6 Gait Assistive Device: FWW Stairs (FIM): 5 # of Steps: 12 1 Step (curb) (QC): 4 4 Steps (QC): 4 12 Steps (QC): 4 Stairs Level Of Assist: 5 PT Plan Treatment/Plan Treatment Plan: Continue Plan of Care Treatment Plan: Education, Functional Activity Morgan, Functional Strength, Group Therapy, Gait, Safety, Therapeutic Exercise, Transfers Treatment Duration: Jan 12, 2018 Frequency: At least 5 of 7 days/Wk (IRF) Estimated Hrs Per Day: 1.5 hours per day Patient and/or Family Agrees t: Yes Safety Risks/Education Patient Education: Gait Training, Transfer Techniques, Correct Positioning, Disease Process, Safety Issues Teaching Recipient: Patient Teaching Methods: Demonstration, Discussion Response to Teaching: Verbalize Understanding, Return Demonstration, Reinforcement Needed Time/GCodes Time In: 1100 Time Out: 1200 Total Billed Treatment Time: 60 Total Billed Treatment 1,GT25m,EX15m,FA20m G Codes Necessary: VICENTA Singh APPLIANCE REPAIR TECHNICIAN Dec 25, 2017 12:02
--- NOTE | 2017-12-25 14:33 | Therapy Group Daily Note ---
Therapy Daily Group Note Patient Education Topic Home Safety Exercises LE Seated Exercise, UE Exercise Other/Notes Pt ambulated to OT/PT group in therapy gym. Group consisted of introductions( name, place living, what brought you to rehab), socialization, pt led UE/LE seated exercises, ARU description and home safety activities. Pt introduced self appropriately and actively listened to peers introduce themselves. Pt able to contribute to conversations and answer questions during home safety education activity. Completed seat UE/LE exercises, did not lead an exercise. After therapy, pt sitting EOB bed with call light/phone in reach. All needs met in room. Start Time: 13:00 Stop Time: 14:00 Total Billed Treatment Time: 60 Total Billed Treatment 1-GRP MISHA KC Dec 25, 2017 14:33
--- NOTE | 2017-12-25 15:26 | Individualized Plan of Care ---
Individualized Plan of Care Rehab Nursing IPOC Order Admission Date Dec 22, 2017 at 15:50 Current Orders Orders Patient Visit (12/22/17 ) Pt Eval Moderate Complexity (12/22/17 ) Admission Order(Inpt,Obs,Sdc) (12/22/17 16:46) Vital Signs: Routine (Order) 08,16,00 (12/22/17 16:46) Sequential Compression Device 08,20 (12/22/17 16:46) Choker Setter-Inpt Rehab Con (12/22/17 16:46) Rehab Nursing Orders-Ipoc (12/22/17 16:46) Physical Therapy Rehab Orders (12/22/17 16:46) Occupational Therapy Rehab Ord (12/22/17 16:46) Speech Therapy Rehab Orders (12/22/17 16:46) General/Regular (12/23/17 Breakfast) Turn And Reposition Q2HR (12/22/17 16:46) Intake & Output 06,14,22 (12/22/17 16:46) Precautions (Aru) (12/22/17 16:46) Weekly Weight (Lbs) WEEK (12/22/17 16:46) Code/Resuscitation (12/22/17 16:46) Initiate Admission Nursing Pro .admission (12/22/17 16:46) General/Regular (12/22/17 Breakfast) Code/Resuscitation (12/22/17 16:49) Isolation Central Supply Req (12/22/17 16:49) Consult Physician (12/22/17 16:51) Cbc With Automated Diff (12/23/17 06:00) Comprehensive Metabolic Panel (12/23/17 06:00) Ciprofloxacin Tablet (Cipro Tablet) (12/22/17 21:00) Bacitracin Ointment (Bacitracin Ointment (12/22/17 21:00) Acetaminophen Tablet (Tylenol Tablet) (12/22/17 17:00) Tramadol Tablet (Ultram Tablet) (12/22/17 17:00) Ambulate 08,12,20 (12/22/17 17:32) Sequential Compression Device 08,20 (12/22/17 17:32) Dvt/Vte Risk - Notifiy Physici 08 (12/22/17 17:32) Influenza Quad (5+Yoa) (Afluria (12/22/17 18:15) Patient Visit (12/23/17 ) Functional Activities, Ea 15 (12/23/17 ) Exercise Therap, Ea 15 Min (12/23/17 ) Gait Training, Ea 15 Min (12/23/17 ) Consult Physician (12/25/17 08:56) Patient Visit (12/25/17 ) Gait Training, Ea 15 Min (12/25/17 ) Exercise Therap, Ea 15 Min (12/25/17 ) Functional Activities, Ea 15 (12/25/17 ) Rehab Nursing Orders: Ongoing Assess. of Cognitive Status, Ongoing Assess. of Function Status, Disease Management & Educaiton, DVT Prophylaxis, Fall Prevention, Fluid/Electrolyte/Nutrition Mgmt, Infection Prevention, Medication Management & Education, Management of Risks & Complications, Management of Skin Intergrity, Nutrition Management, Pain Management, Patient/Family Support, Safety Management PT IPOC Problem List: Activity Tolerance, Functional Strength, Safety, Balance, Gait, Transfer, Bed Mobility Treatment Plan: Continue Plan of Care Education, Functional Activity Morgan, Functional Strength, Group Therapy, Gait, Safety, Therapeutic Exercise, Transfers Treatment Duration: Jan 12, 2018 Frequency: At least 5 of 7 days/Wk (IRF) Estimated Hrs Per Day: 1.5 hours per day OT IPOC Problems: Decreased Activ Tolerance, Decreased Safety Aware, Impaired Cognition , Impaired Funct Balance, Impaired I ADL's, Impaired Self-Care Skills OT Treatment, Training and Edu: Yes Plan of Care: ADL Retraining, Functional Mobility, Group Exercise/Act as Ind, UE Funct Exercise/Act Treatment Duration: Jan 06, 2018 Frequency: At least 5 of 7 days/Wk (IRF) Estimated Hrs Per Day: 1.[address] IPOC Speech Therapy Treatment Plan: Continue Plan of Care Treatment Duration: Dec 25, 2017 Frequency: 5 times per week Estimated Hrs Per Day: .5 hour per day Choker Setter/Case Mgmt Choker Setter/Case Managemen: Discharge Planning, Patient/Family Counseling Dietitian/Mounted Police Dietitian/Mounted Police to monitor nutritional status and make changes and/or recommendations as needed and work with speech pathology on dietary upgrades as the occur. Physician IPOC Medical Issues being managed closely and that require the 24 hour availability of a physician: Abrasion rt occipital scalp s/p fall Dizziness and hearing loss s/p fall with rt temporal bone fracture UTI completed course of antibiotic IGC code 02.22 Etiologic DX Traumatic SAH Medical Issues: DVT Prophylaxis, Falls Precautions, Infection Protection, Pain Management, Wound Care, Other (List) (as per above) Brief Synthesis of Preadmission Screen, Post-Admission Evaluation, and Therapy Evaluations: 72 yo female with hx of falls who was admitted to OSH for eval and treatment SAH/ICB which was then treated medically Patient has residual rt hearing loss and dizziness from Rt temporal bone fracture referred here for rehab as she lives in [place] and cares for her spouse who has dementia PCP DR Hollis [facility].Just completed a course of antibiotic for UTI Has an abrasion scalp from Fall being treated topically Medical Prognosis: Good Anticipated Length of Stay: 12-25-17 Modified Independent to supervision for adls and mobility skills Anticipated d/c Destination: Home with spouse and [facility] due to patients spouses dementia JAGJIT YOON MD Dec 25, 2017 15:26
[2017-12-25 15:31] VITALS: BP 145/84
--- NOTE | 2017-12-25 19:09 | Progress Note (SOAP) ---
Subjective Date Seen by a Provider: Dec 25, 2017 Time Seen by a Provider: 19:07 Subjective/Events-last exam Fwup fall with head trauma, SAH, temporal bone fracture with ongoing dizziness and unsteady gait. C/O blood on her pillow and right posterior scalp tender when lies on it. Objective Exam Vital Signs Date Time Temp Pulse Resp B/P (MAP) Pulse Ox O2 Delivery O2 Flow Rate FiO2 12/25/17 15:31 98.5 100 16 145/84 (104) 98 Room Air 12/25/17 09:00 Room Air 12/25/17 05:44 97.7 90 18 130/85 (100) 99 Room Air 12/24/17 21:35 Room Air I & O 12/25/17 07:00 Intake Total 1280 ml Balance 1280 ml Capillary Refill : General Appearance: No Apparent Distress Neck: Supple Respiratory: Lungs Clear Cardiovascular: Regular Rate, Rhythm Neurologic/Psychiatric: Alert Skin: Other (posterior scalp with scabbing/dried blood) Assessment/Plan Assessment/Plan Assess & Plan/Chief Complaint 1. Fall with Head Trauma resulting in SAH and Temporal Bone fracture--healing 2. UTI--on Cipro 3. Unsteady Gait with dizziness--PT/OT 4. Hyperglycemia--start accuchecks Clinical Quality Measures DVT/VTE Risk/Contraindication: Risk Factor Score Per Nursin RFS Level Per Nursing on Admit: 2=Moderate NICANOR ESTRELLA DO Dec 25, 2017 19:08
[2017-12-26 06:55] VITALS: BP 137/86
[2017-12-26] MEDS: CIPROFLOXACIN 500 MG (CIPRO) TABLET PO SCH (08:02)
--- NOTE | 2017-12-26 08:18 | PM & R (SOAP) Progress Note ---
Subjective This was a face to face visit with the patient. Date Seen by Provider: Dec 26, 2017 Time Seen by Provider: 07:45 Subjective/Events-last exam Patient was seen in her room this AM Patient Min assist for transfers Abrasion scalp healing well no bleeding and less tender Objective Physician Exam Last Set of Vital Signs Vital Signs Date Time Temp Pulse Resp B/P (MAP) Pulse Ox O2 Delivery O2 Flow Rate FiO2 12/26/17 06:55 98.3 80 18 137/86 (103) 99 Room Air Capillary Refill : I&O Intake and Output 12/26/17 00:00 Intake Total 1490 ml Balance 1490 ml Intake Oral 1490 ml # Voids 11 # Bowel Movements 1 General: Alert, Oriented X3, Cooperative HEENT: PERRLA, EOMI, Mucous Memb Moist/[place], Other (abraion occipital scalp with bruising) Neck: Supple, No JVD Lungs: Clear to Auscultation Heart: Regular Rate Abdomen: Normal Bowel Sounds, Soft, No Tenderness Extremities: No Edema Neuro: Strength at 5/5 X4 Ext, Sensation Intact, Other (Impaired balance and c/ o dizziness) Psych/Mental Status: Mental Status NL Results Lab Data Laboratory Tests 12/25/17 20:15: Glucometer 110 12/26/17 05:28: Glucometer 102 Assessment/Plan Assessment and Plan SAH/ICB secondary to fall treated medically at [facility] BRIAN CORTEZ Neurosurgery Abrasion rt occipital scalp s/p fall healing well Dizziness and hearing loss rt s/p rt temp bone fracture with dizziness improving UTI completed course of Cipro Plan Continue PT/OT Team Conference tomorrow F/U with ENT re hearing loss/dizziness Co-Morbidities that are continuing to impact the rehab process: (include details ) JAGJIT YOON MD Dec 26, 2017 08:18
[2017-12-26] MEDS: BACITRACIN OINTMENT 28 GM TUBE TOP SCH ×2 (08:20→19:35)
--- NOTE | 2017-12-26 09:06 | Speech Therapy Daily Note ---
Speech Daily Progress Note Subjective Date Seen by Provider: Dec 26, 2017 Time Seen by Provider: 00:30 Patient was sitting up in her chair when I entered the room. She was pleasant and cooperative. Objective Patient completed memory task of placing items in 1 of 2 categories and recall of 4 items placed in each category with 70% accuracy given min to mod verbal cues.. Assessment Assessment Current Status: Good Progress Treatment Plan Continue Plan of Care Communication Comprehension: 3 Expression: 3 Social Cognition Social Interaction: 4 Problem Solvin Memory: 3 Speech Short Term Goals Short Term Goals Short Term Goals Patient will be able to recall verbally presented words within 5 minutes at 90% accuracy. Patient will be able to state the name and function of verbally or visually presented items with 90% accuracy. Patient will be able to complete problem solving tasks with 90% accuracy. Time Frame-ST week Speech Motorcycle Sales Associate Goals Group Home Goals Patient will increase memory and problem solving skills for safety and independence for returning to home. Social Interaction: 7 Problem Solvin Memory: 7 Speech-Plan Patient/Family Goals Patient/Family Goals: Patient plans to return home with her . Treatment Plan Speech Therapy Treatment Plan: Continue Plan of Care Patient stated she did not sleep well last night because she rested too much yesterday. Treatment Duration: Dec 25, 2017 Frequency: 5 times per week Estimated Hrs Per Day: .5 hour per day Rehab Potential: Good Pt/Family Agrees to Plan: Yes Safety Risks/Education Teaching Recipient: Patient Teaching Methods: Discussion Response to Teaching: Verbalize Understanding Education Topics Provided: Patient trained in using the call light before getting up from the chair. Time Speech Therapy Time In: 08:00 Speech Therapy Time Out: 08:30 Total Billed Time: 30 Billed Treatment Time 1ABBE [address] ST Dec 26, 2017 09:06
--- NOTE | 2017-12-26 12:37 | Progress Note (SOAP) ---
Subjective Date Seen by a Provider: Dec 26, 2017 Time Seen by a Provider: 12:36 Subjective/Events-last exam Fwup fall with head trauma, SAH, temporal bone fracture with ongoing dizziness and unsteady gait. Still dizzy. Objective Exam Vital Signs Date Time Temp Pulse Resp B/P (MAP) Pulse Ox O2 Delivery O2 Flow Rate FiO2 12/26/17 09:00 Room Air 12/26/17 06:55 98.3 80 18 137/86 (103) 99 Room Air 12/25/17 20:10 Room Air 12/25/17 15:31 98.5 100 16 145/84 (104) 98 Room Air I & O 12/26/17 07:00 Intake Total 1290 ml Balance 1290 ml Capillary Refill : General Appearance: No Apparent Distress Neck: Supple Respiratory: Lungs Clear Cardiovascular: Regular Rate, Rhythm Neurologic/Psychiatric: Alert, Oriented x3 Skin: Warm/Dry Results Lab Laboratory Tests 12/25/17 20:15: Glucometer 110 12/26/17 05:28: Glucometer 102 Assessment/Plan Assessment/Plan Assess & Plan/Chief Complaint 1. Fall with Head Trauma resulting in SAH and Temporal Bone fracture--healing 2. UTI--on Cipro 3. Unsteady Gait with dizziness--PT/OT, add meclizine low dose 4. Hyperglycemia--accuchecks started Clinical Quality Measures DVT/VTE Risk/Contraindication: Risk Factor Score Per Nursin RFS Level Per Nursing on Admit: 2=Moderate NICANOR ESTRELLA DO Dec 26, 2017 12:37
--- NOTE | 2017-12-26 13:01 | Occupational Ther Daily Note ---
OT Current Status-Daily Note Subjective Pt seen in room, up in recliner, agreeable to OT. Reported not sleeping well and being dizzy all of the time. No pain mentioned. Appearance Alert, cooperative Mental Status/Objective Functional [place] Measure 0=Not Assessed/NA 4=Minimal Assistance 1=Total Assistance 5=Supervision or Setup 2=Maximal Assistance 6=Modified [place] 3=Moderate Assistance 7=Complete [place] ADL-Treatment Sit to stand CGA, FWW, cues for and placement. Walked CGA to bathroom (for safety due to dizziness), on/off tall toilet, with SBA, grab bar. Managed clothing CGA and hygiene SBA. Pt changed shirt with setup and needed min assist with pants due to she dressed with slipper socks on. Stood at sink CGA, FWW to wash hands and brush teeth. At end of tx, changed to a different shirt with setup and got into bed without help. Pt left on her side, 4 rails up, bed alarm on. Functional [place] Measure 0=Not Assessed/NA 4=Minimal Assistance 1=Total Assistance 5=Supervision or Setup 2=Maximal Assistance 6=Modified [place] 3=Moderate Assistance 7=Complete IndependenceIRFPAI Quality Coding Scale 6 Independent with activity with or without an assistive device 5 Patient requires set up or clean up by helper. Patient completes activity by themselves 4 Supervision or touching assist ([facility]). [place] provide cues , steadying assist 3 The helper provides less than half the effort to complete the activity 2 The helper provides more than half the effort to complete the activity 1 Dependent. The helper does all the effort to complete an activity 7 Patient refused to complete or attempt activity 9 The patient did not perform the activity before the current illness or injury 88 Not attempted due to Medical conditions or safety concerns Grooming (FIM): 4 Upper Body (FIM): 5 Lower Body Dressing (FIM): 4 Toileting (FIM): 3 Toilet/Commode Transfer (FIM): 4 Other Treatment Pt walked to gym with CGA, FWW. Stopped briefly several times due to dizziness. Pt completed 12 minutes bilat UE exercise with arm bike set at 12W resistance, taking several recovery breaks. To strengthen arms to help with ADLS and increase tolerance to activity. Pt walked back to room CGA, FWW. Education OT Patient Education: Exercise program, Modified ADL techniques, Purpose of tx/ functional activities, Safety issues Teaching Recipient: Patient Teaching Methods: Discussion Response to Teaching: Verbalize Understanding OT Short Term Goals Short Term Goals Time Frame: Dec 30, 2017 Eating(FIM): 6 Grooming(FIM): 5 Bathing(FIM): 5 Upper Body Dressing(FIM): 5 Lower Body Dressing(FIM): 5 Toileting(FIM): 5 Transfers (B,C,W/C) (FIM): 5 Toilet/Commode Transfer(FIM): 5 Shower Transfer(FIM): 5 Additional Short Term Goals: 1-Demonstrate ADL Tasks, 2-Verbalize Understanding , 3-ImproveStrength/Morgan 1=Demonstrate adherence to instructed precautions during ADL tasks. 2=Patient will verbalize/demonstrate understanding of assistive devices/ modifications for ADL. 3=Patient will improve strength/tolerance for activity to enable patient to perform ADL's. OT Rough Planer Tender Goals Rough Planer Tender Goals Time Frame: Jan 06, 2018 Eating (FIM): 7 Eating (QC): 6 Groomin Oral Hygiene (QC): 6 Bathing(FIM): 5 Shower/Bathe Self (QC): 5 Upper Body Dressing(FIM): 6 Upper Body Dressing (QC): 6 Lower Body Dressing(FIM): 6 Lower Body Dressing (QC): 6 On/Off Footwear (QC): 6 Toileting(FIM): 6 Toileting Hygiene (QC): 6 Transfers (B,C,W/C) (FIM): 6 Toilet/Commode Transfer(FIM): 6 Toilet/Commode Transfer (QC): 6 Shower Transfer(FIM): 5 Social Interaction(FIM): 7 Problem Solving(FIM): 7 Memory(FIM): 7 Additional Goals: 1-Demonstrate ADL Tasks, 2-Verbalize Understanding, 3- ImproveStrength/Morgan 1=Demonstrate adherence to instructed precautions during ADL tasks. 2=Patient will verbalize/demonstrate understanding of assistive devices/ modifications for ADL. 3=Patient will improve strength/tolerance for activity to enable patient to perform ADL's. OT Education/Plan Discharge Recommendations Plan/Recommendations: Continue POC Treatment Plan/Plan of Care Patient would benefit from OT for education, treatment and training to promote independence in ADL's, mobility, safety and/or upper extremity function for ADL' s. Plan of Care: ADL Retraining, Functional Mobility, Group Exercise/Act as Ind, UE Funct Exercise/Act Treatment Duration: Jan 06, 2018 Frequency: At least 5 of 7 days/Wk (IRF) Estimated Hrs Per Day: 1.5 hours per day Agreement: Yes Rehab Potential: Good Time/GCodes Start Time: 08:30 Stop Time: 09:30 Total Time Billed (hr/min): 60 Billed Treatment Time visit, 30 minutes ADL. 30 minutes exercise TARA LYON OT Dec 26, 2017 13:01
[2017-12-26] MEDS: MECLIZINE 25 MG (ANTIVERT) TAB PO SCH ×2 (13:07→19:35)
--- NOTE | 2017-12-26 13:52 | Occupational Ther Daily Note ---
OT Current Status-Daily Note Subjective Pt seen in room, up at EOB, stating, "I feel pretty good now." Appearance Alert, cooperative Mental Status/Objective Functional [place] Measure 0=Not Assessed/NA 4=Minimal Assistance 1=Total Assistance 5=Supervision or Setup 2=Maximal Assistance 6=Modified [place] 3=Moderate Assistance 7=Complete [place] ADL-Treatment Functional [place] Measure 0=Not Assessed/NA 4=Minimal Assistance 1=Total Assistance 5=Supervision or Setup 2=Maximal Assistance 6=Modified [place] 3=Moderate Assistance 7=Complete IndependenceIRFPAI Quality Coding Scale 6 Independent with activity with or without an assistive device 5 Patient requires set up or clean up by helper. Patient completes activity by themselves 4 Supervision or touching assist (CGA). [place] provide cues , steadying assist 3 The helper provides less than half the effort to complete the activity 2 The helper provides more than half the effort to complete the activity 1 Dependent. The helper does all the effort to complete an activity 7 Patient refused to complete or attempt activity 9 The patient did not perform the activity before the current illness or injury 88 Not attempted due to Medical conditions or safety concerns Other Treatment Pt educ on 5 different bilat UE exercises with yellow theraband (gentle resistance). Visual, verbal and tactile cues provided as needed. She was able to track reps and switch sides but had difficulty with completing one of the exercises correctly. To strengthen arms to help with ADLs. Pt left up at EOB, all needs met. Education OT Patient Education: Exercise program, Purpose of tx/functional activities Teaching Recipient: Patient Teaching Methods: Demonstration, Discussion Response to Teaching: Verbalize Understanding, Return Demonstration, Reinforcement Needed OT Short Term Goals Short Term Goals Time Frame: Dec 30, 2017 Eating(FIM): 6 Grooming(FIM): 5 Bathing(FIM): 5 Upper Body Dressing(FIM): 5 Lower Body Dressing(FIM): 5 Toileting(FIM): 5 Transfers (B,C,W/C) (FIM): 5 Toilet/Commode Transfer(FIM): 5 Shower Transfer(FIM): 5 Additional Short Term Goals: 1-Demonstrate ADL Tasks, 2-Verbalize Understanding , 3-ImproveStrength/Morgan 1=Demonstrate adherence to instructed precautions during ADL tasks. 2=Patient will verbalize/demonstrate understanding of assistive devices/ modifications for ADL. 3=Patient will improve strength/tolerance for activity to enable patient to perform ADL's. OT Fdc Goals Fdc Goals Time Frame: Jan 06, 2018 Eating (FIM): 7 Eating (QC): 6 Groomin Oral Hygiene (QC): 6 Bathing(FIM): 5 Shower/Bathe Self (QC): 5 Upper Body Dressing(FIM): 6 Upper Body Dressing (QC): 6 Lower Body Dressing(FIM): 6 Lower Body Dressing (QC): 6 On/Off Footwear (QC): 6 Toileting(FIM): 6 Toileting Hygiene (QC): 6 Transfers (B,C,W/C) (FIM): 6 Toilet/Commode Transfer(FIM): 6 Toilet/Commode Transfer (QC): 6 Shower Transfer(FIM): 5 Social Interaction(FIM): 7 Problem Solving(FIM): 7 Memory(FIM): 7 Additional Goals: 1-Demonstrate ADL Tasks, 2-Verbalize Understanding, 3- ImproveStrength/Morgan 1=Demonstrate adherence to instructed precautions during ADL tasks. 2=Patient will verbalize/demonstrate understanding of assistive devices/ modifications for ADL. 3=Patient will improve strength/tolerance for activity to enable patient to perform ADL's. OT Education/Plan Discharge Recommendations Plan/Recommendations: Continue POC Treatment Plan/Plan of Care Patient would benefit from OT for education, treatment and training to promote independence in ADL's, mobility, safety and/or upper extremity function for ADL' s. Plan of Care: ADL Retraining, Functional Mobility, Group Exercise/Act as Ind, UE Funct Exercise/Act Treatment Duration: Jan 06, 2018 Frequency: At least 5 of 7 days/Wk (IRF) Estimated Hrs Per Day: 1.5 hours per day Agreement: Yes Rehab Potential: Good Time/GCodes Start Time: 13:00 Stop Time: 13:15 Total Time Billed (hr/min): 15 Billed Treatment Time visit, 15 minutes exercise TARA LYON OT Dec 26, 2017 13:52
--- NOTE | 2017-12-26 15:14 | Physical Therapy Daily Note ---
PT Daily Note-Current Subjective Pt sitting at EOB upon arrival. Pt agrees to PT. Pt is at times confused and repeats stories due to head injury. Pt reports dizziness upon standing & looking down. Mental Status Patient Orientation: Person, Place Transfers Functional [place] Measure 0=Not Assessed/NA 4=Minimal Assistance 1=Total Assistance 5=Supervision or Setup 2=Maximal Assistance 6=Modified [place] 3=Moderate Assistance 7=Complete IndependenceIRFPAI Quality Coding Scale 6 Independent with activity with or without an assistive device 5 Patient requires set up or clean up by helper. Patient completes activity by themselves 4 Supervision or touching assist ([facility]). [place] provide cues , steadying assist 3 The helper provides less than half the effort to complete the activity 2 The helper provides more than half the effort to complete the activity 1 Dependent. The helper does all the effort to complete an activity 7 Patient refused to complete or attempt activity 9 The patient did not perform the activity before the current illness or injury 88 Not attempted due to Medical conditions or safety concerns Scootin Sit to/from Stand: 4 Sit to Stand (QC): 4 Weight Bearing Right Lower Extremity: Right Weight Bearing/Tolerated Left Lower Extremity: Left Weight Bearing/Tolerated Gait Training Does the Patient Walk?: Yes Distance (FIM): 3=150 ft Distance: 150' Walk 10 feet (QC): 4 Walk 50 ft with 2 Turns(QC): 4 Walk 150 ft (QC): 4 Gait Level of Assist: 4 Gait Persons Needed: 1 Gait Assistive Device: FWW Pt needs VC for positioning w/in FWW and safety. Exercises NuStep Minutes: 15 NuStep Workload: 5 Treatments Pt transfers from EOB to standing and uses restroom. Pt ambulates in hallway using FWW at [facility] with VC. Pt uses NuStep for 15m at 5. Pt returns to room at end of tx to rest & assist pt with ordering meals. Pt has all needs met. Assessment Current Status: Fair Progress Due to head injury, pt needs consistent VC for safety. PT Short Term Goals Short Term Goals Time Frame: Dec 29, 2017 Transfers (B,C,W/C) (FIM): 5 Gait (FIM): 5 Gait Distance Comment: 200' Gait Level of Assist: 5 Gait Assistive Device: FWW PT Wireless Store Manager Goals Usp Goals PT Usp Goals Time Frame: Jan 12, 2018 Transfers (B,C,W/C) (FIM): 6 Sit to Lying (QC): 6 Lying-Sitting on Side/Bed(QC): 6 Sit to Stand (QC): 6 Rollin Roll Left to Right (QC): 6 Chair/Vxm-nu-Gtfxr Xfer(QC): 6 Car Transfer (QC): 6 Gait (FIM): 6 Distance: 300' Walk 10 feet (QC): 6 Walk 10ft-Uneven Surface(QC): 6 Walk 50ft with 2 Turns (QC): 6 Walk 150 ft (QC): 6 Gait Level of Assist: 6 Gait Assistive Device: FWW Stairs (FIM): 5 # of Steps: 12 1 Step (curb) (QC): 4 4 Steps (QC): 4 12 Steps (QC): 4 Stairs Level Of Assist: 5 PT Plan Problem List Problem List: Activity Tolerance, Functional Strength, Safety, Balance, Gait, Transfer Treatment/Plan Treatment Plan: Continue Plan of Care Treatment Plan: Education, Functional Activity [place], Functional Strength, Group Therapy, Gait, Safety, Therapeutic Exercise, Transfers Treatment Duration: Jan 12, 2018 Frequency: At least 5 of 7 days/Wk (IRF) Estimated Hrs Per Day: 1.5 hours per day Patient and/or Family Agrees t: Yes Safety Risks/Education Patient Education: Gait Training, Transfer Techniques, Correct Positioning, Safety Issues Teaching Recipient: Patient Teaching Methods: Demonstration, Discussion Response to Teaching: Reinforcement Needed Time/GCodes Time In: 1015 Time Out: 1115 Total Billed Treatment Time: 60 Total Billed Treatment 1, GT (15m), FA x2 (30m) & Ex (15m) G Codes Necessary: TIMOTHY Fernández GRANULATOR Dec 26, 2017 15:14
--- NOTE | 2017-12-26 15:27 | Physical Therapy Daily Note ---
PT Daily Note-Current Subjective Pt sitting at EOB upon arrival. Pt reports needing to use restroom. Pt agrees to PT. Mental Status Patient Orientation: Person, Place Transfers Functional [place] Measure 0=Not Assessed/NA 4=Minimal Assistance 1=Total Assistance 5=Supervision or Setup 2=Maximal Assistance 6=Modified [place] 3=Moderate Assistance 7=Complete IndependenceIRFPAI Quality Coding Scale 6 Independent with activity with or without an assistive device 5 Patient requires set up or clean up by helper. Patient completes activity by themselves 4 Supervision or touching assist ([facility]). [place] provide cues , steadying assist 3 The helper provides less than half the effort to complete the activity 2 The helper provides more than half the effort to complete the activity 1 Dependent. The helper does all the effort to complete an activity 7 Patient refused to complete or attempt activity 9 The patient did not perform the activity before the current illness or injury 88 Not attempted due to Medical conditions or safety concerns Scootin Rollin Supine to/from Sit: 5 Sit to/from Stand: 4 Sit to Lying (QC): 5 Sit to Stand (QC): 4 Weight Bearing Right Lower Extremity: Right Weight Bearing/Tolerated Left Lower Extremity: Left Weight Bearing/Tolerated Gait Training Does the Patient Walk?: Yes Distance (FIM): 1=up to 49 ft Distance: 20' Walk 10 feet (QC): 4 Gait Level of Assist: 4 Gait Persons Needed: 1 Gait Assistive Device: FWW Exercises Seated Therapy Exercises: Ankle pumps, Long arc quads, Hip flexion, Kicking activity Seated Reps: 10 Treatments Pt asked to be shown Seated EX to complete when IMPREGNATOR OPERATOR not present to gain strength. Pt then transfers to standing from EOB at [facility] and ambulates to restroom using FWW at [facility]. Pt returns to EOB at end of tx with all needs met. Assessment Current Status: Fair Progress Pt needs reminders for safety at times. PT Short Term Goals Short Term Goals Time Frame: Dec 29, 2017 Transfers (B,C,W/C) (FIM): 5 Gait (FIM): 5 Gait Distance Comment: 200' Gait Level of Assist: 5 Gait Assistive Device: FWW PT Fpc Goals Patient Placement Coordinator Goals PT Patient Placement Coordinator Goals Time Frame: Jan 12, 2018 Transfers (B,C,W/C) (FIM): 6 Sit to Lying (QC): 6 Lying-Sitting on Side/Bed(QC): 6 Sit to Stand (QC): 6 Rollin Roll Left to Right (QC): 6 Chair/Yrj-wl-Xvasf Xfer(QC): 6 Car Transfer (QC): 6 Gait (FIM): 6 Distance: 300' Walk 10 feet (QC): 6 Walk 10ft-Uneven Surface(QC): 6 Walk 50ft with 2 Turns (QC): 6 Walk 150 ft (QC): 6 Gait Level of Assist: 6 Gait Assistive Device: FWW Stairs (FIM): 5 # of Steps: 12 1 Step (curb) (QC): 4 4 Steps (QC): 4 12 Steps (QC): 4 Stairs Level Of Assist: 5 PT Plan Problem List Problem List: Activity Tolerance, Functional Strength, Safety, Balance, Gait, Transfer Treatment/Plan Treatment Plan: Continue Plan of Care Treatment Plan: Education, Functional Activity [place], Functional Strength, Group Therapy, Gait, Safety, Therapeutic Exercise, Transfers Treatment Duration: Jan 12, 2018 Frequency: At least 5 of 7 days/Wk (IRF) Estimated Hrs Per Day: 1.5 hours per day Patient and/or Family Agrees t: Yes Safety Risks/Education Patient Education: Gait Training, Transfer Techniques, Correct Positioning, Safety Issues Teaching Recipient: Patient Teaching Methods: Discussion Response to Teaching: Verbalize Understanding Time/GCodes Time In: 1315 Time Out: 1330 Total Billed Treatment Time: 15 Total Billed Treatment 1, FA (15m) G Codes Necessary: TIMOTHY Fernández IMPREGNATOR OPERATOR Dec 26, 2017 15:27
[2017-12-26 15:49] VITALS: BP 119/81
--- NOTE | 2017-12-26 18:13 | Consultation ---
History of Present Illness History of Present Illness Patient Consulted On(tanja/time) 12/26/17 18:08 Date Seen by Provider: Dec 26, 2017 Time Seen by Provider: 18:08 Reason for Visit: Right Temporal fracture and hearing loss, dizziness History of Present Illness Previously pt had fall and hit the right side of her head. She was treated at [place] and released with home health She was then referred to rehab due to difficulty completing ADL's Pt stated after her fall she did not immediately notice trouble with hearing from Right ear and dysequilibrium but then started having trouble Allergies and Home Medications Allergies Coded Allergies: No Known Drug Allergies (Verified , 04/29/15) Patient Home Medication List Home Medication List Reviewed: Yes Past Bqfefom-Zumvnt-Dlduun Hx Past Med/Social Hx: Reviewed Nursing Past Med/Soc Hx, Reviewed and Corrections made Patient Social History Alcohol Use: Denies Use Recreational Drug Use: No Recent Foreign Travel: No Contact w/Someone Who Travel: No Recent Infectious Disease Expo: No Recent Hopitalizations: Yes (SUBARACHNOID HEMORRHAGE) Seasonal Allergies Seasonal Allergies: No Past Medical History Surgeries: No Respiratory: No Cardiac: No Neurological: Yes (12/11) : No Genitourinary: No Gastrointestinal: Yes Gastroesophageal Reflux, Hemorrhoids Musculoskeletal: Yes (12/11 TEMPORAL FX) Fractures Endocrine: No HEENT: No Cancer: No Psychosocial: No Integumentary: No Blood Disorders: No Family Medical History Patient reports no known family medical history. Review of Systems-General EENTM: hearing loss (Right ear ), other (dysequilibrium ) Physical Exam-General Problems Physical Exam Vital Signs Vital Signs - First Documented 12/22/17 16:31 Temp 98.0 Pulse 70 Resp 16 B/P (MAP) 133/82 (99) Pulse Ox 98 O2 Delivery Room Air Capillary Refill : HEENT: TM abnormal (R) (unable to see Right TM due to hard dried blood in EAC, Left TM normal ) Assessment/Plan Assessment/Plan Admission Diagnosis/Plan Right Temporal fracture Right hearing loss after fall Dysequilibrium Plan: Pt will need Physical therapy with Balance Exercises Follow up with Dr. Moreno office after discharge for exam and hearing test Pt will need to use Ofloxacin drops 3 drops bid x 10 days to Right ear prior to apt with Dr Mccray office to help soften dried blood in right EAC Admission Status: Inpatient Order (span 2 midnights) Reason for Inpatient Admission: Pt will need Physical therapy with balance excercises Clinical Quality Measures DVT/VTE Risk/Contraindication: Risk Factor Score Per Nursin RFS Level Per Nursing on Admit: 2=Moderate Copy Copies To 1: RICK MCCRAY MD, ANDRA J FNP Dec 26, 2017 18:13
[2017-12-26] MEDS: OFLOXACIN 0.3% OPHTH SOLN 5 ML OU SCH (19:36)
[2017-12-26] MEDS: ACETAMINOPHEN 500 MG TAB (TYLENOL) PO PRN (19:37)
[2017-12-26] MEDS ORDERED: OFLOXACIN RIGHT EAR SCH (21:00)
[2017-12-27 05:18] VITALS: BP 128/72
[2017-12-27] MEDS: OFLOXACIN 0.3% OPHTH SOLN 5 ML OU SCH ×2 (07:20→20:06)
[2017-12-27] MEDS: BACITRACIN OINTMENT 28 GM TUBE TOP SCH ×2 (07:20→20:06)
[2017-12-27] MEDS: MECLIZINE 25 MG (ANTIVERT) TAB PO SCH ×3 (07:20→20:05)
--- NOTE | 2017-12-27 08:03 | PM & R (SOAP) Progress Note ---
Subjective This was a face to face visit with the patient. Date Seen by Provider: Dec 27, 2017 Time Seen by Provider: 07:45 Subjective/Events-last exam Patient was seen in her room this AM Abrasion rt occipital scalp healing well Appreciate ENT and PCPS notes and orders Patient min assist for transfers Date Identified: Dec 27, 2017 Time Identified: 07:45 Medication Intervention: Meclizine for dizziness Review of Systems Neurological: Other (dizziness) Objective Physician Exam Last Set of Vital Signs Vital Signs Date Time Temp Pulse Resp B/P (MAP) Pulse Ox O2 Delivery O2 Flow Rate FiO2 12/27/17 05:18 97.2 83 16 128/72 (90) 100 Room Air Capillary Refill : I&O Intake and Output 12/26/17 23:59 Intake Total 840 ml Balance 840 ml Intake Oral 840 ml # Voids 9 # Bowel Movements 1 General: Alert, Oriented X3, Cooperative HEENT: PERRLA, EOMI, Mucous Memb Moist/[place], Other ( abrasion scalp healing well Dried blood in RT ear canal) Neck: Supple, No JVD Lungs: Clear to Auscultation Heart: Regular Rate Abdomen: Normal Bowel Sounds, Soft, No Tenderness Extremities: No Edema Neuro: Strength at 5/5 X4 Ext, Sensation Intact, Other (Impaired balance and c/ o dizziness) Psych/Mental Status: Mental Status NL Results Lab Data Laboratory Tests 12/25/17 20:15: Glucometer 110 12/26/17 05:28: Glucometer 102 12/26/17 13:22: Glucometer 136H 12/26/17 15:47: Glucometer 114H 12/26/17 20:10: Glucometer 175H 12/27/17 05:11: Glucometer 97 Assessment/Plan Assessment and Plan SAH/ICB secondary to fall treATED medically at [facility] Abrasion rt occipital scalp healing well Dizziness and hearing loss rt s/p rt temporal bone fracture with dizziness improving 'Impacted rt ear canal with dried blood UTI completed course of cipro Plan Continue PT/OT Team Conference later today see report for full functional update and POC and ELOS F/U with ENT and PCP prn F/U hearing test with ENT on an outpatient basis Co-Morbidities that are continuing to impact the rehab process: (include details ) JAGJIT YOON MD Dec 27, 2017 08:03
--- NOTE | 2017-12-27 09:34 | Physical Therapy Daily Note ---
PT Daily Note-Current Subjective Pt reports still having occasional intermittent pain right side of head. States her head is still bleeding a little bit this morning but had stopped yesterday. C/O some dizziness and lightheadedness at times during treatment session Pain Numeric Pain Scale: 5-Moderate Pain Comment: intermittent between 0-5/10 R side head Appearance Pt laying supine in bed upon arrival. At end of treatment, pt sitting up in recliner with OT present Transfers Functional [place] Measure 0=Not Assessed/NA 4=Minimal Assistance 1=Total Assistance 5=Supervision or Setup 2=Maximal Assistance 6=Modified [place] 3=Moderate Assistance 7=Complete IndependenceIRFPAI Quality Coding Scale 6 Independent with activity with or without an assistive device 5 Patient requires set up or clean up by helper. Patient completes activity by themselves 4 Supervision or touching assist (CGA). [place] provide cues , steadying assist 3 The helper provides less than half the effort to complete the activity 2 The helper provides more than half the effort to complete the activity 1 Dependent. The helper does all the effort to complete an activity 7 Patient refused to complete or attempt activity 9 The patient did not perform the activity before the current illness or injury 88 Not attempted due to Medical conditions or safety concerns Transfers (B, C, W/C) (FIM): 4 Scootin Rollin Roll Left to Right (QC): 4 Supine to/from Sit: 4 Sit to/from Stand: 5 Sit to Stand (QC): 4 Pt having difficulty supine to sit requiring min assist after several minutes of attempting without assist. C/O pain in head and dizziness which subsided after sitting about 1 minute. min to mod verb inst for safety during transitions for safety, hand placement and walker placement Weight Bearing Right Lower Extremity: Right Weight Bearing/Tolerated Left Lower Extremity: Left Weight Bearing/Tolerated Gait Training Does the Patient Walk?: Yes Gait (FIM): 4 Distance (FIM): 3=150 ft Distance: 330 Walk 10 feet (QC): 4 Walk 50 ft with 2 Turns(QC): 4 Walk 150 ft (QC): 4 Gait Level of Assist: 4 Gait Persons Needed: 1 Gait Assistive Device: FWW slight unsteadiness and c/o dizziness during gait training in hallway Exercises Supine Ex: Bridging, Ankle pumps, Heel Slides, Straight leg raise, Hip abd/add Supine Reps: 15 Seated Therapy Exercises: Ankle pumps, Sit to stand, Long arc quads, Hip flexion, Hip abd/add Seated Reps: 15 Standing: Heel/toe raises, 3 way Ex=Flex, Abd, Ext, Marching, Mini squats, Retro gait, Sit to Stand Standing Reps: 15 standing ex requiring several very brief rest breaks, performed with UE support on FWW, No AD but with occasional COKE CRANE OPERATOR with fwd retro gait activity Treatments ex, balance, transfer and gait training Assessment Current Status: Good Progress increased gait distance PT Short Term Goals Short Term Goals Time Frame: Dec 29, 2017 Transfers (B,C,W/C) (FIM): 5 Gait (FIM): 5 Gait Distance Comment: 200' Gait Level of Assist: 5 Gait Assistive Device: FWW PT Gun Synchronizer Goals Half-Way Goals PT Half-Way Goals Time Frame: Jan 12, 2018 Transfers (B,C,W/C) (FIM): 6 Sit to Lying (QC): 6 Lying-Sitting on Side/Bed(QC): 6 Sit to Stand (QC): 6 Rollin Roll Left to Right (QC): 6 Chair/Oxz-qo-Rirfr Xfer(QC): 6 Car Transfer (QC): 6 Gait (FIM): 6 Distance: 300' Walk 10 feet (QC): 6 Walk 10ft-Uneven Surface(QC): 6 Walk 50ft with 2 Turns (QC): 6 Walk 150 ft (QC): 6 Gait Level of Assist: 6 Gait Assistive Device: FWW Stairs (FIM): 5 # of Steps: 12 1 Step (curb) (QC): 4 4 Steps (QC): 4 12 Steps (QC): 4 Stairs Level Of Assist: 5 PT Plan Problem List Problem List: Safety, Balance, Gait, Transfer, Bed Mobility Treatment/Plan Treatment Plan: Continue Plan of Care Treatment Plan: Education, Functional Activity Morgan, Functional Strength, Group Therapy, Gait, Safety, Therapeutic Exercise, Transfers Treatment Duration: Jan 12, 2018 Frequency: At least 5 of 7 days/Wk (IRF) Estimated Hrs Per Day: 1.5 hours per day Patient and/or Family Agrees t: Yes Safety Risks/Education Patient Education: Gait Training, Transfer Techniques, Safety Issues Teaching Recipient: Patient Teaching Methods: Demonstration, Discussion Response to Teaching: Verbalize Understanding, Return Demonstration, Reinforcement Needed Time/GCodes Time In: 810 Time Out: 900 Total Billed Treatment Time: 50 Total Billed Treatment Visit Ex x1 FA x1 GT x1 VIVIANA WASHINGTON [employer]W MEMBER Dec 27, 2017 09:34
--- NOTE | 2017-12-27 10:42 | Occupational Ther Daily Note ---
OT Current Status-Daily Note Subjective Pt sitting in chair, agrees to treatment. Mental Status/Objective Functional [place] Measure 0=Not Assessed/NA 4=Minimal Assistance 1=Total Assistance 5=Supervision or Setup 2=Maximal Assistance 6=Modified [place] 3=Moderate Assistance 7=Complete [place] ADL-Treatment Pt would like to shower this morning. Sit to stand with supervision. Gait to restroom with FWW. Pt transferred to shower with CGA and cues for safety, uses grab bars for balance. Doffed clothes with SBA. Pt completed seated bathing using hand held shower. Pt able to wash all areas, but requires CGA for balance during LE bathing. Don pullover shirt with set up. Pt able to thread bilateral LE into pant legs with SBA. Stood with CGA for balance during pant hike. Pt donned bilateral socks with SBA. Stood at sink to comb hair. Pt requested minimal assistance to comb back of hair secondary to gash on head. Toilet transfer with SBA. Pt able to complete toileting hygiene with SBA. Close supervision for balance during clothing management. Stood at sink to wash hands with SBA. Functional [place] Measure 0=Not Assessed/NA 4=Minimal Assistance 1=Total Assistance 5=Supervision or Setup 2=Maximal Assistance 6=Modified [place] 3=Moderate Assistance 7=Complete IndependenceIRFPAI Quality Coding Scale 6 Independent with activity with or without an assistive device 5 Patient requires set up or clean up by helper. Patient completes activity by themselves 4 Supervision or touching assist (CGA). [place] provide cues , steadying assist 3 The helper provides less than half the effort to complete the activity 2 The helper provides more than half the effort to complete the activity 1 Dependent. The helper does all the effort to complete an activity 7 Patient refused to complete or attempt activity 9 The patient did not perform the activity before the current illness or injury 88 Not attempted due to Medical conditions or safety concerns Bathing (FIM): 4 Upper Body (FIM): 5 Upper Body Dressing (QC): 5 Lower Body Dressing (FIM): 4 (CGA) Lower Body Dressing (QC): 4 On/Off Footwear (QC): 4 Toileting (FIM): 5 Toileting Hygiene (QC): 4 Toilet/Commode Transfer (FIM): 5 Toilet Transfer (QC): 4 Shower Transfer(FIM): 4 Other Treatment Gait to therapy gym with FWW, slow pace. Arm bike [id number] to increase overall strength and activity tolerance needed for functional tasks. Pt completed task with minimal resistance and slow pace. No rest breaks needed. Pt completed graded clothespin activity with bilateral hands to increase deputy brand inspector strength for ADLs. Pt returned to room, sitting in chair with needs met and chair alarm in place after session. OT Short Term Goals Short Term Goals Time Frame: Dec 30, 2017 Eating(FIM): 6 Grooming(FIM): 5 Bathing(FIM): 5 Upper Body Dressing(FIM): 5 Lower Body Dressing(FIM): 5 Toileting(FIM): 5 Transfers (B,C,W/C) (FIM): 5 Toilet/Commode Transfer(FIM): 5 Shower Transfer(FIM): 5 Additional Short Term Goals: 1-Demonstrate ADL Tasks, 2-Verbalize Understanding , 3-ImproveStrength/Morgan 1=Demonstrate adherence to instructed precautions during ADL tasks. 2=Patient will verbalize/demonstrate understanding of assistive devices/ modifications for ADL. 3=Patient will improve strength/tolerance for activity to enable patient to perform ADL's. OT Cafeteria Table Attendant Goals Cafeteria Table Attendant Goals Time Frame: Jan 06, 2018 Eating (FIM): 7 Eating (QC): 6 Groomin Oral Hygiene (QC): 6 Bathing(FIM): 5 Shower/Bathe Self (QC): 5 Upper Body Dressing(FIM): 6 Upper Body Dressing (QC): 6 Lower Body Dressing(FIM): 6 Lower Body Dressing (QC): 6 On/Off Footwear (QC): 6 Toileting(FIM): 6 Toileting Hygiene (QC): 6 Transfers (B,C,W/C) (FIM): 6 Toilet/Commode Transfer(FIM): 6 Toilet/Commode Transfer (QC): 6 Shower Transfer(FIM): 5 Social Interaction(FIM): 7 Problem Solving(FIM): 7 Memory(FIM): 7 Additional Goals: 1-Demonstrate ADL Tasks, 2-Verbalize Understanding, 3- ImproveStrength/Morgan 1=Demonstrate adherence to instructed precautions during ADL tasks. 2=Patient will verbalize/demonstrate understanding of assistive devices/ modifications for ADL. 3=Patient will improve strength/tolerance for activity to enable patient to perform ADL's. OT Education/Plan Discharge Recommendations Plan/Recommendations: Continue POC Treatment Plan/Plan of Care Patient would benefit from OT for education, treatment and training to promote independence in ADL's, mobility, safety and/or upper extremity function for ADL' s. Plan of Care: ADL Retraining, Functional Mobility, Group Exercise/Act as Ind, UE Funct Exercise/Act Treatment Duration: Jan 06, 2018 Frequency: At least 5 of 7 days/Wk (IRF) Estimated Hrs Per Day: 1.5 hours per day Agreement: Yes Rehab Potential: Good Time/GCodes Start Time: 09:00 Stop Time: 10:15 Total Time Billed (hr/min): 75 Billed Treatment Time 1 visit, ADLx3(50minutes), EXx2(25minutes) ZEENAT JOSE OT Dec 27, 2017 10:42
--- NOTE | 2017-12-27 11:41 | Speech Therapy Daily Note ---
Speech Daily Progress Note Subjective Date Seen by Provider: Dec 27, 2017 Time Seen by Provider: 00:30 Patient pleasant and cooperative. Objective Patient completed word recall tasks with 60% accuracy given 25% verbal cuing. Treatment Plan Continue Plan of Care Communication Comprehension: 3 Expression: 3 Social Cognition Social Interaction: 4 Problem Solvin Memory: 3 Speech Short Term Goals Short Term Goals Short Term Goals Patient will be able to recall verbally presented words within 5 minutes at 90% accuracy. Patient will be able to state the name and function of verbally or visually presented items with 90% accuracy. Patient will be able to complete problem solving tasks with 90% accuracy. Time Frame-ST week Speech Artists' Booking Representative Goals Artists' Booking Representative Goals Patient will increase memory and problem solving skills for safety and independence for returning to home. Social Interaction: 7 Problem Solvin Memory: 7 Speech-Plan Patient/Family Goals Patient/Family Goals: Patient plans to return home with her as soon as possible. Treatment Plan Speech Therapy Treatment Plan: Continue Plan of Care Patient is progressing well toward goals. Treatment Duration: Dec 25, 2017 Frequency: 5 times per week Estimated Hrs Per Day: .5 hour per day Rehab Potential: Good Barriers to Learning: Patient is from [facility] and speaks [place]vian as a second language. Pt/Family Agrees to Plan: Yes Safety Risks/Education Teaching Recipient: Patient Teaching Methods: Discussion Response to Teaching: Verbalize Understanding Time Speech Therapy Time In: 10:30 Speech Therapy Time Out: 11:00 Total Billed Time: 30 Billed Treatment Time [address] Dec 27, 2017 11:41
--- NOTE | 2017-12-27 13:00 | Progress Note (SOAP) ---
Subjective Date Seen by a Provider: Dec 27, 2017 Time Seen by a Provider: 12:58 Subjective/Events-last exam Fwup fall with head trauma, SAH, temporal bone fracture with ongoing dizziness and unsteady gait. Started meclizine yesterday at low dose. Objective Exam Vital Signs Date Time Temp Pulse Resp B/P (MAP) Pulse Ox O2 Delivery O2 Flow Rate FiO2 12/27/17 09:00 Room Air 12/27/17 05:18 97.2 83 16 128/72 (90) 100 Room Air 12/26/17 21:00 Room Air 12/26/17 18:00 Room Air 12/26/17 15:49 99.0 94 16 119/81 (94) 99 Room Air I & O 12/27/17 07:00 Intake Total 1280 ml Balance 1280 ml Capillary Refill : General Appearance: No Apparent Distress Respiratory: Lungs Clear Cardiovascular: Regular Rate, Rhythm Extremity: Non Tender, No Calf Tenderness, No Pedal Edema Neurologic/Psychiatric: Alert, Oriented x3 Results Lab Laboratory Tests 12/26/17 13:22: Glucometer 136H 12/26/17 15:47: Glucometer 114H 12/26/17 20:10: Glucometer 175H 12/27/17 05:11: Glucometer 97 Assessment/Plan Assessment/Plan Assess & Plan/Chief Complaint 1. Fall with Head Trauma resulting in SAH and Temporal Bone fracture--healing 2. UTI--on Cipro 3. Unsteady Gait with dizziness--PT/OT, added meclizine low dose 4. Hyperglycemia--accuchecks started and has had one elevation but rest have been low so will monitor Clinical Quality Measures DVT/VTE Risk/Contraindication: Risk Factor Score Per Nursin RFS Level Per Nursing on Admit: 2=Moderate NICANOR ESTRELLA DO Dec 27, 2017 1:00 pm
--- NOTE | 2017-12-27 13:48 | Physical Therapy Daily Note ---
PT Daily Note-Current Subjective Pt reports doing pretty well this afternoon. States she feels that the exercise is really helping [facility]. States she is still having occasional dizziness and pain in her head Appearance Pt sitting up in recliner with chair alarm set and watching a show on her phone upon arrival. At end of session, pt sitting up in recliner with table in front of her, chair alarm set, call button within reach and resuming her show on her phone. Transfers Functional Day Measure 0=Not Assessed/NA 4=Minimal Assistance 1=Total Assistance 5=Supervision or Setup 2=Maximal Assistance 6=Modified Day 3=Moderate Assistance 7=Complete IndependenceIRFPAI Quality Coding Scale 6 Independent with activity with or without an assistive device 5 Patient requires set up or clean up by helper. Patient completes activity by themselves 4 Supervision or touching assist (CGA). [place] provide cues , steadying assist 3 The helper provides less than half the effort to complete the activity 2 The helper provides more than half the effort to complete the activity 1 Dependent. The helper does all the effort to complete an activity 7 Patient refused to complete or attempt activity 9 The patient did not perform the activity before the current illness or injury 88 Not attempted due to Medical conditions or safety concerns Transfers (B, C, W/C) (FIM): 5 Scootin Sit to/from Stand: 5 Sit to Stand (QC): 5 improved by requiring less verb inst for hand placement and safety Weight Bearing Right Lower Extremity: Right Weight Bearing/Tolerated Left Lower Extremity: Left Weight Bearing/Tolerated Gait Training Does the Patient Walk?: Yes Gait (FIM): 5 Distance (FIM): 3=150 ft Distance: 270, 60 Walk 10 feet (QC): 4 Walk 50 ft with 2 Turns(QC): 4 Walk 150 ft (QC): 4 Gait Level of Assist: 5 Gait Persons Needed: 1 Gait Assistive Device: FWW improved balance, less c/o dizziness, decreased step height, stride length, heel strike and toe off while using FWW. Gait training without AD x40', CGA, shuffling gait pattern, very cautious and rigid posture Stair Training Stair Training: Handrails/: 2 handrails Stairs (FIM): 2 #of Steps: 4 (x2) 4 Steps (QC): 4 Stairs: Pattern: Reciprocal Level of Assist: 4 CGA, Increased dizziness on stairs, very slow and cautious but able to perform reciprocating gait pattern. Report of occasional knee pain on stairs. Exercises Standing: Marching Standing Reps: 20 unilat UE support in // bars, CGA, unsteady, attempted without UE support, but unable NuStep Minutes: 17 (2 laps) NuStep Workload: 6 Treatments Gait training with and without AD, transfer training, ex, balance, stairs Assessment Current Status: Good Progress increasing activity and balance and decreasing rest breaks PT Short Term Goals Short Term Goals Time Frame: Dec 29, 2017 Transfers (B,C,W/C) (FIM): 5 Gait (FIM): 5 Gait Distance Comment: 200' Gait Level of Assist: 5 Gait Assistive Device: FWW PT Detention Goals Detention Goals PT Detention Goals Time Frame: Jan 12, 2018 Transfers (B,C,W/C) (FIM): 6 Sit to Lying (QC): 6 Lying-Sitting on Side/Bed(QC): 6 Sit to Stand (QC): 6 Rollin Roll Left to Right (QC): 6 Chair/Nvi-tr-Jvgfo Xfer(QC): 6 Car Transfer (QC): 6 Gait (FIM): 6 Distance: 300' Walk 10 feet (QC): 6 Walk 10ft-Uneven Surface(QC): 6 Walk 50ft with 2 Turns (QC): 6 Walk 150 ft (QC): 6 Gait Level of Assist: 6 Gait Assistive Device: FWW Stairs (FIM): 5 # of Steps: 12 1 Step (curb) (QC): 4 4 Steps (QC): 4 12 Steps (QC): 4 Stairs Level Of Assist: 5 PT Plan Problem List Problem List: Functional Strength, Safety, Balance, Gait, Transfer Treatment/Plan Treatment Plan: Continue Plan of Care Treatment Plan: Education, Functional Activity [place], Functional Strength, Group Therapy, Gait, Safety, Therapeutic Exercise, Transfers Treatment Duration: Jan 12, 2018 Frequency: At least 5 of 7 days/Wk (IRF) Estimated Hrs Per Day: 1.5 hours per day Patient and/or Family Agrees t: Yes Safety Risks/Education Patient Education: Gait Training, Transfer Techniques, Steps, Safety Issues Teaching Recipient: Patient Teaching Methods: Demonstration, Discussion Response to Teaching: Verbalize Understanding, Return Demonstration, Reinforcement Needed Time/GCodes Time In: 1258 Time Out: 146 Total Billed Treatment Time: 48 Total Billed Treatment 1 Visit GT x1 FA x1 EX x1 VIVIANA WASHINGTON WARPING MILL OPERATOR Dec 27, 2017 13:48
[2017-12-27 18:00] VITALS: BP 137/86
[2017-12-28 06:42] VITALS: BP 132/73
--- NOTE | 2017-12-28 07:30 | Occupational Ther Daily Note ---
OT Current Status-Daily Note Subjective Pt seen in room, up in recliner, agreeable to OT. No pain mentioned but she noted that she was sleepy. Mental Status/Objective Functional [place] Measure 0=Not Assessed/NA 4=Minimal Assistance 1=Total Assistance 5=Supervision or Setup 2=Maximal Assistance 6=Modified [place] 3=Moderate Assistance 7=Complete [place] ADL-Treatment Pt declined bathing or changing clothes but did get up from recliner and walk SBA, FWW to bathroom to toilet SBA. Functional [place] Measure 0=Not Assessed/NA 4=Minimal Assistance 1=Total Assistance 5=Supervision or Setup 2=Maximal Assistance 6=Modified [place] 3=Moderate Assistance 7=Complete IndependenceIRFPAI Quality Coding Scale 6 Independent with activity with or without an assistive device 5 Patient requires set up or clean up by helper. Patient completes activity by themselves 4 Supervision or touching assist (CGA). [place] provide cues , steadying assist 3 The helper provides less than half the effort to complete the activity 2 The helper provides more than half the effort to complete the activity 1 Dependent. The helper does all the effort to complete an activity 7 Patient refused to complete or attempt activity 9 The patient did not perform the activity before the current illness or injury 88 Not attempted due to Medical conditions or safety concerns Toileting (FIM): 5 Toilet/Commode Transfer (FIM): 5 Other Treatment She walked with SBA, Fww to gym and did 15 minutes bilat UE exercise on arm bike set at 15W resistance. She also completed nuts and bolts activity with 1/2 pound weight on each arm ("That's heavy!") To strengthen arms to help with ADLs and transfers and to increase activity tolerance. Cues for hand placement for transfers. She walked back to her room SBA, FWW and was left up in recliner , chair alarm on, all needs met. Education OT Patient Education: Progress toward Goal/Update tx plan, Purpose of tx/ functional activities, Transfer techniques Teaching Recipient: Patient Teaching Methods: Discussion Response to Teaching: Verbalize Understanding, Return Demonstration OT Short Term Goals Short Term Goals Time Frame: Dec 30, 2017 Eating(FIM): 6 Grooming(FIM): 5 Bathing(FIM): 5 Upper Body Dressing(FIM): 5 Lower Body Dressing(FIM): 5 Toileting(FIM): 5 Transfers (B,C,W/C) (FIM): 5 Toilet/Commode Transfer(FIM): 5 Shower Transfer(FIM): 5 Additional Short Term Goals: 1-Demonstrate ADL Tasks, 2-Verbalize Understanding , 3-ImproveStrength/Morgan 1=Demonstrate adherence to instructed precautions during ADL tasks. 2=Patient will verbalize/demonstrate understanding of assistive devices/ modifications for ADL. 3=Patient will improve strength/tolerance for activity to enable patient to perform ADL's. OT Milling Machine Operator Goals Milling Machine Operator Goals Time Frame: Jan 06, 2018 Eating (FIM): 7 Eating (QC): 6 Groomin Oral Hygiene (QC): 6 Bathing(FIM): 5 Shower/Bathe Self (QC): 5 Upper Body Dressing(FIM): 6 Upper Body Dressing (QC): 6 Lower Body Dressing(FIM): 6 Lower Body Dressing (QC): 6 On/Off Footwear (QC): 6 Toileting(FIM): 6 Toileting Hygiene (QC): 6 Transfers (B,C,W/C) (FIM): 6 Toilet/Commode Transfer(FIM): 6 Toilet/Commode Transfer (QC): 6 Shower Transfer(FIM): 5 Social Interaction(FIM): 7 Problem Solving(FIM): 7 Memory(FIM): 7 Additional Goals: 1-Demonstrate ADL Tasks, 2-Verbalize Understanding, 3- ImproveStrength/Morgan 1=Demonstrate adherence to instructed precautions during ADL tasks. 2=Patient will verbalize/demonstrate understanding of assistive devices/ modifications for ADL. 3=Patient will improve strength/tolerance for activity to enable patient to perform ADL's. OT Education/Plan Discharge Recommendations Plan/Recommendations: Continue POC Treatment Plan/Plan of Care Patient would benefit from OT for education, treatment and training to promote independence in ADL's, mobility, safety and/or upper extremity function for ADL' s. Plan of Care: ADL Retraining, Functional Mobility, Group Exercise/Act as Ind, UE Funct Exercise/Act Treatment Duration: Jan 06, 2018 Frequency: At least 5 of 7 days/Wk (IRF) Estimated Hrs Per Day: 1.5 hours per day Agreement: Yes Rehab Potential: Good Time/GCodes Start Time: 07:00 Stop Time: 07:55 Total Time Billed (hr/min): 55 Billed Treatment Time visit, ADL 10 minutes, exercise 45 minutes TARA LYON OT Dec 28, 2017 07:30
[2017-12-28] MEDS: MECLIZINE 25 MG (ANTIVERT) TAB PO SCH ×3 (08:25→20:11)
[2017-12-28] MEDS: OFLOXACIN 0.3% OPHTH SOLN 5 ML OU SCH ×2 (08:26→20:12)
[2017-12-28] MEDS: BACITRACIN OINTMENT 28 GM TUBE TOP SCH ×2 (08:26→20:10)
--- NOTE | 2017-12-28 09:33 | Physical Therapy Daily Note ---
PT Daily Note-Current Subjective Patient sitting EOB and agrees to PT. Patient denies dizziness, however, states , "My feet don't belong to me." RN notified. Mental Status Patient Orientation: Person, Time, Situation Transfers Functional [place] Measure 0=Not Assessed/NA 4=Minimal Assistance 1=Total Assistance 5=Supervision or Setup 2=Maximal Assistance 6=Modified [place] 3=Moderate Assistance 7=Complete IndependenceIRFPAI Quality Coding Scale 6 Independent with activity with or without an assistive device 5 Patient requires set up or clean up by helper. Patient completes activity by themselves 4 Supervision or touching assist (CGA). [place] provide cues , steadying assist 3 The helper provides less than half the effort to complete the activity 2 The helper provides more than half the effort to complete the activity 1 Dependent. The helper does all the effort to complete an activity 7 Patient refused to complete or attempt activity 9 The patient did not perform the activity before the current illness or injury 88 Not attempted due to Medical conditions or safety concerns Transfers (B, C, W/C) (FIM): 5 Scootin Sit to/from Stand: 5 Sit to Stand (QC): 5 Weight Bearing Right Lower Extremity: Right Weight Bearing/Tolerated Left Lower Extremity: Left Weight Bearing/Tolerated Gait Training Does the Patient Walk?: Yes Gait (FIM): 5 Distance (FIM): 3=150 ft Distance: 300' x 2/150' x 2 Walk 10 feet (QC): 5 Walk 50 ft with 2 Turns(QC): 5 Walk 150 ft (QC): 5 Gait Level of Assist: 5 Gait Assistive Device: FWW slow, steady, safe, functional, no deviation Assessment Patient tolerated treatment well and returned to her room for ST. PT to continue to increase activity as tolerated by patient. PT Short Term Goals Short Term Goals Time Frame: Dec 29, 2017 Transfers (B,C,W/C) (FIM): 5 Gait (FIM): 5 Gait Distance Comment: 200' Gait Level of Assist: 5 Gait Assistive Device: FWW PT Jail Goals Talent Specialist Goals PT Jail Goals Time Frame: Jan 12, 2018 Transfers (B,C,W/C) (FIM): 6 Sit to Lying (QC): 6 Lying-Sitting on Side/Bed(QC): 6 Sit to Stand (QC): 6 Rollin Roll Left to Right (QC): 6 Chair/Dnf-gw-Qxvqt Xfer(QC): 6 Car Transfer (QC): 6 Gait (FIM): 6 Distance: 300' Walk 10 feet (QC): 6 Walk 10ft-Uneven Surface(QC): 6 Walk 50ft with 2 Turns (QC): 6 Walk 150 ft (QC): 6 Gait Level of Assist: 6 Gait Assistive Device: FWW Stairs (FIM): 5 # of Steps: 12 1 Step (curb) (QC): 4 4 Steps (QC): 4 12 Steps (QC): 4 Stairs Level Of Assist: 5 PT Plan Treatment/Plan Treatment Plan: Continue Plan of Care Treatment Plan: Education, Functional Activity [place], Functional Strength, Group Therapy, Gait, Safety, Therapeutic Exercise, Transfers Treatment Duration: Jan 12, 2018 Frequency: At least 5 of 7 days/Wk (IRF) Estimated Hrs Per Day: 1.5 hours per day Patient and/or Family Agrees t: Yes Time/GCodes Time In: 901 Time Out: 924 Total Billed Treatment Time: 23 Total Billed Treatment 1 visit FA x 2 23 min PIPPA HSIEH PT Dec 28, 2017 09:33
--- NOTE | 2017-12-28 10:19 | Speech Therapy Daily Note ---
Speech Daily Progress Note Subjective Date Seen by Provider: Dec 28, 2017 Time Seen by Provider: 00:30 Patient was pleasant and cooperative. Objective Patient completed memory activities with 80% accuracy given 25% verbal cues. Assessment Assessment Current Status: Good Progress Treatment Plan Continue Plan of Care Communication Comprehension: 3 Expression: 3 Social Cognition Social Interaction: 4 Problem Solvin Memory: 3 Speech Short Term Goals Short Term Goals Short Term Goals Patient will be able to recall verbally presented words within 5 minutes at 90% accuracy. Patient will be able to state the name and function of verbally or visually presented items with 90% accuracy. Patient will be able to complete problem solving tasks with 90% accuracy. Time Frame-ST week Speech Alf Goals Alf Goals Patient will increase memory and problem solving skills for safety and independence for returning to home. Social Interaction: 7 Problem Solvin Memory: 7 Speech-Plan Patient/Family Goals Patient/Family Goals: Patient plans to return home with her . Treatment Plan Speech Therapy Treatment Plan: Continue Plan of Care Patient is progressing well on all goals. Treatment Duration: Dec 25, 2017 Frequency: 5 times per week Estimated Hrs Per Day: .5 hour per day Rehab Potential: Good Barriers to Learning: Latvian is her second language. Pt/Family Agrees to Plan: Yes Safety Risks/Education Teaching Recipient: Patient Teaching Methods: Discussion Response to Teaching: Verbalize Understanding Education Topics Provided: Safety within her immediate living environment. Time Speech Therapy Time In: 09:30 Speech Therapy Time Out: 10:00 Total Billed Time: 30 Billed Treatment Time 1ABBE [facility] [facility] Dec 28, 2017 10:19
--- NOTE | 2017-12-28 10:34 | Physical Therapy Daily Note ---
PT Daily Note-Current Subjective Pt sitting in recliner upon arrival. Pt agrees to PT but reports needing to use restroom before leaving room. Pain Location: No Pain Reported Mental Status Patient Orientation: Person, Place, Situation Transfers Functional [place] Measure 0=Not Assessed/NA 4=Minimal Assistance 1=Total Assistance 5=Supervision or Setup 2=Maximal Assistance 6=Modified [place] 3=Moderate Assistance 7=Complete IndependenceIRFPAI Quality Coding Scale 6 Independent with activity with or without an assistive device 5 Patient requires set up or clean up by helper. Patient completes activity by themselves 4 Supervision or touching assist (CGA). [place] provide cues , steadying assist 3 The helper provides less than half the effort to complete the activity 2 The helper provides more than half the effort to complete the activity 1 Dependent. The helper does all the effort to complete an activity 7 Patient refused to complete or attempt activity 9 The patient did not perform the activity before the current illness or injury 88 Not attempted due to Medical conditions or safety concerns Scootin Sit to/from Stand: 5 Sit to Stand (QC): 5 Weight Bearing Right Lower Extremity: Right Weight Bearing/Tolerated Left Lower Extremity: Left Weight Bearing/Tolerated Gait Training Does the Patient Walk?: Yes Distance (FIM): 3=150 ft Distance: 200' Walk 10 feet (QC): 5 Walk 50 ft with 2 Turns(QC): 5 Walk 150 ft (QC): 5 Gait Level of Assist: 5 Gait Persons Needed: 1 Gait Assistive Device: FWW Pt needs occasional VC to stay closer to FWW when ambulating. Wheelchair Training Does the Pt Use a Wheelchair?: No Stair Training Stair Training: Handrails/: 2 handrails #of Steps: 12 1 Step (curb) (QC): 5 4 Steps (QC): 5 12 Steps (QC): 5 Stairs: Pattern: Reciprocal Level of Assist: 5 Treatments Pt transfers from recliner to standing using FWW at SBA. Pt uses restroom then ambulates in hallway using FWW at SBA. Pt completes 12 steps at close SBA then takes short rest before returning to recliner to rest at end of tx with all needs met. Assessment Current Status: Good Progress Pt has moments of dizziness but less frequent and not as significant. PT Short Term Goals Short Term Goals Time Frame: Dec 29, 2017 Transfers (B,C,W/C) (FIM): 5 Gait (FIM): 5 Gait Distance Comment: 200' Gait Level of Assist: 5 Gait Assistive Device: FWW PT Snf Goals Web Merchant Goals PT Snf Goals Time Frame: Jan 12, 2018 Transfers (B,C,W/C) (FIM): 6 Sit to Lying (QC): 6 Lying-Sitting on Side/Bed(QC): 6 Sit to Stand (QC): 6 Rollin Roll Left to Right (QC): 6 Chair/Eij-tq-Fmemb Xfer(QC): 6 Car Transfer (QC): 6 Gait (FIM): 6 Distance: 300' Walk 10 feet (QC): 6 Walk 10ft-Uneven Surface(QC): 6 Walk 50ft with 2 Turns (QC): 6 Walk 150 ft (QC): 6 Gait Level of Assist: 6 Gait Assistive Device: FWW Stairs (FIM): 5 # of Steps: 12 1 Step (curb) (QC): 4 4 Steps (QC): 4 12 Steps (QC): 4 Stairs Level Of Assist: 5 PT Plan Problem List Problem List: Activity Tolerance, Safety, Balance, Gait Treatment/Plan Treatment Plan: Continue Plan of Care Treatment Plan: Education, Functional Activity [place], Functional Strength, Group Therapy, Gait, Safety, Therapeutic Exercise, Transfers Treatment Duration: Jan 12, 2018 Frequency: At least 5 of 7 days/Wk (IRF) Estimated Hrs Per Day: 1.5 hours per day Patient and/or Family Agrees t: Yes Safety Risks/Education Patient Education: Gait Training, Transfer Techniques, Correct Positioning, Safety Issues Teaching Recipient: Patient Teaching Methods: Discussion Response to Teaching: Verbalize Understanding Time/GCodes Time In: 1005 Time Out: 1028 Total Billed Treatment Time: 23 Total Billed Treatment 1, GT (11m) & FA (12m) G Codes Necessary: TIMOTHY Fernández MAINTENANCE SERVICE TECHNICIAN Dec 28, 2017 10:34
--- NOTE | 2017-12-28 12:15 | Therapy Group Daily Note ---
Therapy Daily Group Note Patient Education Topic Home Safety Other/Notes Pt was an active participant in OT/PT lunch group. She introduced herself with verbal cues for socialization and recognized the family aspect of Thanksgiving, although it was not part of her culture in growing up. She attended to discussion on Thanksgiving trivia and also discussion/education on home safety, in preparation for discharge. She walked back to her room with CRISTY LOPEZW, and was left up in recliner, all needs met. Start Time: 11:00 Stop Time: 12:00 Total Billed Treatment Time: 60 Total Billed Treatment visit, 60 minutes group TARA LYON OT Dec 28, 2017 12:15
[2017-12-28 16:44] VITALS: BP 106/71
[2017-12-29 05:04] VITALS: BP 127/77
--- NOTE | 2017-12-29 09:07 | Physical Therapy Daily Note ---
PT Daily Note-Current Subjective Pt continues to report numbness in (B) hands and dizziness with head flex/ext. Appearance Alert and oriented. Transfers Functional [place] Measure 0=Not Assessed/NA 4=Minimal Assistance 1=Total Assistance 5=Supervision or Setup 2=Maximal Assistance 6=Modified [place] 3=Moderate Assistance 7=Complete IndependenceIRFPAI Quality Coding Scale 6 Independent with activity with or without an assistive device 5 Patient requires set up or clean up by helper. Patient completes activity by themselves 4 Supervision or touching assist (CGA). [place] provide cues , steadying assist 3 The helper provides less than half the effort to complete the activity 2 The helper provides more than half the effort to complete the activity 1 Dependent. The helper does all the effort to complete an activity 7 Patient refused to complete or attempt activity 9 The patient did not perform the activity before the current illness or injury 88 Not attempted due to Medical conditions or safety concerns Transfers (B, C, W/C) (FIM): 5 Scootin Rollin Roll Left to Right (QC): 5 Supine to/from Sit: 5 Sit to/from Stand: 5 Sit to Stand (QC): 5 Weight Bearing Right Lower Extremity: Right Weight Bearing/Tolerated Left Lower Extremity: Left Weight Bearing/Tolerated Gait Training Does the Patient Walk?: Yes Gait (FIM): 5 Distance (FIM): 3=150 ft Distance: 200ft x3 Walk 50 ft with 2 Turns(QC): 5 Walk 150 ft (QC): 5 Gait Level of Assist: 5 Gait Persons Needed: 1 Gait Assistive Device: FWW Ambulated 2 laps with FWW and SBA. The third lap performed without the walker with CGA. No LOB or instability. Wheelchair Training Does the Pt Use a Wheelchair?: No Stair Training Stair Training: Handrails/: 1 handrail #of Steps: 4 4 Steps (QC): 5 Stairs: Pattern: Reciprocal Level of Assist: 5 Exercises Standing: Dynamic Reaching Ex, Floor clock, Heel/toe raises, 3 way Ex=Flex, Abd , Ext, Marching, Maze, Mini squats, Retro gait, Side steps, Step-ups, Stepping over objects Only experienced LOB 1x during balance training on the Airex pad, when coupled with look up/down. Assessment Current Status: Good Progress Based on previous notes, she is showing improvement with balance and stability during (I) tasks. PT Short Term Goals Short Term Goals Time Frame: Dec 29, 2017 Transfers (B,C,W/C) (FIM): 5 Gait (FIM): 5 Gait Distance Comment: 200' Gait Level of Assist: 5 Gait Assistive Device: FWW PT Mcc Goals Mcc Goals PT Trigonometry Tutor Goals Time Frame: Jan 12, 2018 Transfers (B,C,W/C) (FIM): 6 Sit to Lying (QC): 6 Lying-Sitting on Side/Bed(QC): 6 Sit to Stand (QC): 6 Rollin Roll Left to Right (QC): 6 Chair/Yee-kv-Zmphk Xfer(QC): 6 Car Transfer (QC): 6 Gait (FIM): 6 Distance: 300' Walk 10 feet (QC): 6 Walk 10ft-Uneven Surface(QC): 6 Walk 50ft with 2 Turns (QC): 6 Walk 150 ft (QC): 6 Gait Level of Assist: 6 Gait Assistive Device: FWW Stairs (FIM): 5 # of Steps: 12 1 Step (curb) (QC): 4 4 Steps (QC): 4 12 Steps (QC): 4 Stairs Level Of Assist: 5 PT Plan Treatment/Plan Treatment Plan: Continue Plan of Care Treatment Plan: Education, Functional Activity Morgan, Functional Strength, Group Therapy, Gait, Safety, Therapeutic Exercise, Transfers Treatment Duration: Jan 12, 2018 Frequency: At least 5 of 7 days/Wk (IRF) Estimated Hrs Per Day: 1.5 hours per day Patient and/or Family Agrees t: Yes Time/GCodes Time In: 0810 Time Out: 0855 Total Billed Treatment Time: 45 Total Billed Treatment 1, ex x2 (30), nm (15) KANA GONZALEZ PT Dec 29, 2017 09:07
[2017-12-29] MEDS: OFLOXACIN 0.3% OPHTH SOLN 5 ML OU SCH ×2 (09:49→20:17)
[2017-12-29] MEDS: BACITRACIN OINTMENT 28 GM TUBE TOP SCH ×2 (09:50→20:17)
[2017-12-29] MEDS: MECLIZINE 25 MG (ANTIVERT) TAB PO SCH ×3 (09:50→20:17)
--- NOTE | 2017-12-29 11:30 | Occupational Ther Daily Note ---
OT Current Status-Daily Note Subjective Pt seen in room, sitting up at edge of bed, agreeable to OT. Would like to shower today. No pain mentioned. Pt reported dizziness is improving unless she looks down. Appearance Alert, cooperative Mental Status/Objective Functional [place] Measure 0=Not Assessed/NA 4=Minimal Assistance 1=Total Assistance 5=Supervision or Setup 2=Maximal Assistance 6=Modified [place] 3=Moderate Assistance 7=Complete [place] ADL-Treatment Pt walked SBA, FWW to closet to retrieve clean clothes, hanging them on front of walker for transport. She walked to bathroom SBA, FWW, toileted twice SBA, walked to shower and transferred in/out of shower with SBA, grab bars, FWW. She dressed SBA, FWW and walked to sink to brush teeth and comb hair. Washed face and hands during shower. Walked to closet to put dirty clothes away. Pt did not report any dizziness and had no LOB. Concerned because she hasn't heard from her who has dementia and nursing will arrange for well check. Pt left sitting EOB, all needs met. Functional [place] Measure 0=Not Assessed/NA 4=Minimal Assistance 1=Total Assistance 5=Supervision or Setup 2=Maximal Assistance 6=Modified [place] 3=Moderate Assistance 7=Complete IndependenceIRFPAI Quality Coding Scale 6 Independent with activity with or without an assistive device 5 Patient requires set up or clean up by helper. Patient completes activity by themselves 4 Supervision or touching assist (CGA). [place] provide cues , steadying assist 3 The helper provides less than half the effort to complete the activity 2 The helper provides more than half the effort to complete the activity 1 Dependent. The helper does all the effort to complete an activity 7 Patient refused to complete or attempt activity 9 The patient did not perform the activity before the current illness or injury 88 Not attempted due to Medical conditions or safety concerns Grooming (FIM): 5 (SBA, FWW, standing st sink to brush teeth and comb hair) Bathing (FIM): 5 (washed and dried all parts except back. Shower bench, grab bars, hand held shower, setup) Upper Body (FIM): 5 (Doffed and donned clothing with SBA to retrieve clean clothes.) Lower Body Dressing (FIM): 5 (Doffed and donned clothing, SBA when retrieving clothes from closet. Including slipper socks. FWW) Toileting (FIM): 5 (Managed clothing and hygiene, tall toilet, grab bar, SBA. ) Toilet/Commode Transfer (FIM): 5 (On/off tall toilet, grab bar, FWW. SBA) Shower Transfer(FIM): 5 (SBA getting in and out of shower and on/off shower bench. Grab bar, FWW) Education OT Patient Education: Progress toward Goal/Update tx plan, Purpose of tx/ functional activities, Safety issues Teaching Recipient: Patient Teaching Methods: Discussion Response to Teaching: Verbalize Understanding, Return Demonstration OT Short Term Goals Short Term Goals Time Frame: Dec 30, 2017 Eating(FIM): 6 Grooming(FIM): 5 Bathing(FIM): 5 Upper Body Dressing(FIM): 5 Lower Body Dressing(FIM): 5 Toileting(FIM): 5 Transfers (B,C,W/C) (FIM): 5 Toilet/Commode Transfer(FIM): 5 Shower Transfer(FIM): 5 Additional Short Term Goals: 1-Demonstrate ADL Tasks, 2-Verbalize Understanding , 3-ImproveStrength/[place] 1=Demonstrate adherence to instructed precautions during ADL tasks. 2=Patient will verbalize/demonstrate understanding of assistive devices/ modifications for ADL. 3=Patient will improve strength/tolerance for activity to enable patient to perform ADL's. OT Mcfp Goals Mcfp Goals Time Frame: Jan 06, 2018 Eating (FIM): 7 Eating (QC): 6 Groomin Oral Hygiene (QC): 6 Bathing(FIM): 5 Shower/Bathe Self (QC): 5 Upper Body Dressing(FIM): 6 Upper Body Dressing (QC): 6 Lower Body Dressing(FIM): 6 Lower Body Dressing (QC): 6 On/Off Footwear (QC): 6 Toileting(FIM): 6 Toileting Hygiene (QC): 6 Transfers (B,C,W/C) (FIM): 6 Toilet/Commode Transfer(FIM): 6 Toilet/Commode Transfer (QC): 6 Shower Transfer(FIM): 5 Social Interaction(FIM): 7 Problem Solving(FIM): 7 Memory(FIM): 7 Additional Goals: 1-Demonstrate ADL Tasks, 2-Verbalize Understanding, 3- ImproveStrength/[place] 1=Demonstrate adherence to instructed precautions during ADL tasks. 2=Patient will verbalize/demonstrate understanding of assistive devices/ modifications for ADL. 3=Patient will improve strength/tolerance for activity to enable patient to perform ADL's. OT Education/Plan Discharge Recommendations Plan/Recommendations: Continue POC Treatment Plan/Plan of Care Patient would benefit from OT for education, treatment and training to promote independence in ADL's, mobility, safety and/or upper extremity function for ADL' s. Plan of Care: ADL Retraining, Functional Mobility, Group Exercise/Act as Ind, UE Funct Exercise/Act Treatment Duration: Jan 06, 2018 Frequency: At least 5 of 7 days/Wk (IRF) Estimated Hrs Per Day: 1.5 hours per day Agreement: Yes Rehab Potential: Good Time/GCodes Start Time: 09:00 Stop Time: 09:45 Total Time Billed (hr/min): 45 Billed Treatment Time visit, 45 minutes ADL TARA LYON OT Dec 29, 2017 11:30
--- NOTE | 2017-12-29 14:10 | Speech Therapy Daily Note ---
Speech Daily Progress Note Subjective Date Seen by Provider: Dec 29, 2017 Time Seen by Provider: 00:30 Patient pleasant and cooperative. Objective Patient completed memory tasks for recall of sets of 3, 4 words with 75% accuracy given minimal repetitions. Assessment Assessment Current Status: Good Progress Communication Comprehension: 3 Expression: 3 Social Cognition Social Interaction: 4 Problem Solvin Memory: 3 Speech Short Term Goals Short Term Goals Short Term Goals Patient will be able to recall verbally presented words within 5 minutes at 90% accuracy. Patient will be able to state the name and function of verbally or visually presented items with 90% accuracy. Patient will be able to complete problem solving tasks with 90% accuracy. Time Frame-ST week Speech Recreation Therapy Teacher Goals Fdc Goals Patient will increase memory and problem solving skills for safety and independence for returning to home. Social Interaction: 7 Problem Solvin Memory: 7 Speech-Plan Patient/Family Goals Patient/Family Goals: Patient plans to return to her home with her next week. Treatment Plan Speech Therapy Treatment Plan: Continue Plan of Care Patient progress is good. Treatment Duration: Dec 25, 2017 Frequency: 5 times per week Estimated Hrs Per Day: .5 hour per day Rehab Potential: Good Barriers to Learning: Japanese is her second language. Pt/Family Agrees to Plan: Yes Safety Risks/Education Teaching Recipient: Patient Teaching Methods: Discussion Response to Teaching: Verbalize Understanding Education Topics Provided: Safety within her immediate living environment. Time Speech Therapy Time In: 10:30 Speech Therapy Time Out: 11:00 Total Billed Time: 30 Billed Treatment Time 1ABB[address] Dec 29, 2017 14:10
--- NOTE | 2017-12-29 14:44 | Therapy Group Daily Note ---
Therapy Daily Group Note Patient Education Topic Exercises Exercises LE Seated Exercise, Sit to/from Stand, Walking, UE Exercise Other/Notes Pt ambulated with FWW to therapy gym for OT/PT group. Group consisted of introductions(name, place born, youthful memory), socialization, pt lead UE/LE seated exercises, benefits of exercise, walking/transfers and cognitive task naming Jamia lyons. Pt introduced self appropriately and actively listened to peers. Pt was able to participate in exercises and lead one exercise. Pt demonstrated ability to transfer and ambulate to designated areas with supervision. Pt required modifications to chose correct name of song. Pt contributed to conversations and was able to verbalize understanding of educational topics. After therapy, pt lying in bed with call light/phone in reach. All needs met in room. Start Time: 13:00 Stop Time: 14:10 Total Billed Treatment Time: 70 Total Billed Treatment 1-GRP MISHA KC Dec 29, 2017 14:44
[2017-12-29 18:00] VITALS: BP 122/81
--- NOTE | 2017-12-29 19:51 | PM & R (SOAP) Progress Note ---
Subjective This was a face to face visit with the patient. Date Seen by Provider: Dec 29, 2017 Time Seen by Provider: 19:25 Subjective/Events-last exam Patient was seen on common area ambulating wit Nursing staff Patient SBA for Transfers and gait with walker.Occipital abrasion healing well and dizziness improving Objective Physician Exam Last Set of Vital Signs Vital Signs Date Time Temp Pulse Resp B/P (MAP) Pulse Ox O2 Delivery O2 Flow Rate FiO2 12/29/17 18:00 98.3 100 16 122/81 (95) 98 Room Air Capillary Refill : I&O Intake and Output 12/29/17 00:00 Intake Total 1350 ml Balance 1350 ml Intake Oral 1350 ml # Voids 11 # Bowel Movements 1 General: Alert, Oriented X3, Cooperative HEENT: PERRLA, EOMI, Mucous Memb Moist/[place], Other ( abrasion scalp healing well Dried blood in RT ear canal) Neck: Supple, No JVD Lungs: Clear to Auscultation Heart: Regular Rate Abdomen: Normal Bowel Sounds, Soft, No Tenderness Extremities: No Edema Neuro: Strength at 5/5 X4 Ext, Sensation Intact, Other (Impaired balance and c/ o dizziness) Psych/Mental Status: Mental Status NL Results Lab Data Laboratory Tests 12/26/17 20:10: Glucometer 175H 12/27/17 05:11: Glucometer 97 12/27/17 15:59: Glucometer 95 Assessment/Plan Assessment and Plan SAH/ICB secondary to fall teated at OSH medically Abrasion rt occipital scalp healing well Dizziness and hearing loss rt s/p rt temporal bone fracture Impacted rt ear canal with dried blood UTI completed course of antibiotic Plan Continue PT/OT Discuss discharge options with SW/Team next week Co-Morbidities that are continuing to impact the rehab process: (include details ) JAGJIT YOON MD Dec 29, 2017 19:51
[2017-12-30 05:06] VITALS: BP 140/77
--- NOTE | 2017-12-30 07:53 | PM & R (SOAP) Progress Note ---
Subjective This was a face to face visit with the patient. Date Seen by Provider: Dec 30, 2017 Time Seen by Provider: 07:30 Subjective/Events-last exam Patient was seen in her room this AM Patient SBA for transfers and gait with a walker Objective Physician Exam Last Set of Vital Signs Vital Signs Date Time Temp Pulse Resp B/P (MAP) Pulse Ox O2 Delivery O2 Flow Rate FiO2 12/30/17 05:06 97.6 93 18 140/77 (98) 96 Room Air Capillary Refill : I&O Intake and Output 12/30/17 00:00 Intake Total 1300 ml Balance 1300 ml Intake Oral 1300 ml # Voids 11 # Bowel Movements 1 General: Alert, Oriented X3, Cooperative HEENT: PERRLA, EOMI, Mucous Memb Moist/[place], Other ( abrasion scalp healing well Dried blood in RT ear canal) Neck: Supple, No JVD Lungs: Clear to Auscultation Heart: Regular Rate Abdomen: Normal Bowel Sounds, Soft, No Tenderness Extremities: No Edema Neuro: Strength at 5/5 X4 Ext, Sensation Intact, Other (Impaired balance and c/ o dizziness) Psych/Mental Status: Mental Status NL Results Lab Data Laboratory Tests 12/27/17 15:59: Glucometer 95 Assessment/Plan Assessment and Plan SAH/ICB secondary to fall treated at OSH medically Chronic dizziness on antivert ENT following Abrasion rt occipital scalp healing well Impacted RT ear canal with dried blood ENT ordered Drops and f/u with them on an outpatient basis UTI completed course of antibiotics Plan Continue PT/OT/ST Team Conference next week SW to f/u re possible discharge options for patient in consideration of her husbands dementia Co-Morbidities that are continuing to impact the rehab process: (include details ) JAGJIT YOON MD Dec 30, 2017 07:53
[2017-12-30] MEDS: OFLOXACIN 0.3% OPHTH SOLN 5 ML OU SCH ×2 (08:19→19:30)
[2017-12-30] MEDS: MECLIZINE 25 MG (ANTIVERT) TAB PO SCH ×3 (08:19→19:30)
[2017-12-30] MEDS: BACITRACIN OINTMENT 28 GM TUBE TOP SCH ×2 (08:19→19:30)
--- NOTE | 2017-12-30 10:17 | Physical Therapy Daily Note ---
PT Daily Note-Current Subjective Pt reports mild dizziness during first 20ft of ambulation. Continued reports of (B) hand tingling. Mental Status Patient Orientation: Person, Place, Situation Transfers Functional [place] Measure 0=Not Assessed/NA 4=Minimal Assistance 1=Total Assistance 5=Supervision or Setup 2=Maximal Assistance 6=Modified [place] 3=Moderate Assistance 7=Complete IndependenceIRFPAI Quality Coding Scale 6 Independent with activity with or without an assistive device 5 Patient requires set up or clean up by helper. Patient completes activity by themselves 4 Supervision or touching assist (CGA). [place] provide cues , steadying assist 3 The helper provides less than half the effort to complete the activity 2 The helper provides more than half the effort to complete the activity 1 Dependent. The helper does all the effort to complete an activity 7 Patient refused to complete or attempt activity 9 The patient did not perform the activity before the current illness or injury 88 Not attempted due to Medical conditions or safety concerns Transfers (B, C, W/C) (FIM): 5 Supine to/from Sit: 5 Sit to/from Stand: 5 Sit to Stand (QC): 5 Weight Bearing Right Lower Extremity: Right Weight Bearing/Tolerated Left Lower Extremity: Left Weight Bearing/Tolerated Gait Training Does the Patient Walk?: Yes Gait (FIM): 5 Distance (FIM): 3=150 ft Distance: 250ft, 200ft Gait Level of Assist: 5 Gait Persons Needed: 1 Gait Assistive Device: FWW Performed first ambulation training with FWW. Second performed wtihout AD with CGA. No issues with LOB or instability. Exercises Standin way Ex=Flex, Abd, Ext Standing Reps: 20 NuStep Minutes: 15 NuStep Workload: 3 Assessment Current Status: Good Progress Pt is highly motivated to return home, and she is working hard to improve. PT Short Term Goals Short Term Goals Time Frame: Dec 29, 2017 Transfers (B,C,W/C) (FIM): 5 Gait (FIM): 5 Gait Distance Comment: 200' Gait Level of Assist: 5 Gait Assistive Device: FWW PT Electronic Lab Technician Goals Half-Way Goals PT Half-Way Goals Time Frame: Jan 12, 2018 Transfers (B,C,W/C) (FIM): 6 Sit to Lying (QC): 6 Lying-Sitting on Side/Bed(QC): 6 Sit to Stand (QC): 6 Rollin Roll Left to Right (QC): 6 Chair/Jcv-ce-Mfrqh Xfer(QC): 6 Car Transfer (QC): 6 Gait (FIM): 6 Distance: 300' Walk 10 feet (QC): 6 Walk 10ft-Uneven Surface(QC): 6 Walk 50ft with 2 Turns (QC): 6 Walk 150 ft (QC): 6 Gait Level of Assist: 6 Gait Assistive Device: FWW Stairs (FIM): 5 # of Steps: 12 1 Step (curb) (QC): 4 4 Steps (QC): 4 12 Steps (QC): 4 Stairs Level Of Assist: 5 PT Plan Treatment/Plan Treatment Plan: Continue Plan of Care Treatment Plan: Education, Functional Activity Morgan, Functional Strength, Group Therapy, Gait, Safety, Therapeutic Exercise, Transfers Treatment Duration: Jan 12, 2018 Frequency: At least 5 of 7 days/Wk (IRF) Estimated Hrs Per Day: 1.5 hours per day Patient and/or Family Agrees t: Yes Time/GCodes Time In: 0805 Time Out: 08 Total Billed Treatment Time: 30 Total Billed Treatment 1, ex (20), gt (10) KANA GONZALEZ PT Dec 30, 2017 10:17
[2017-12-30 18:09] VITALS: BP 144/88
[2017-12-31 05:16] VITALS: BP 123/85
[2017-12-31] MEDS: OFLOXACIN 0.3% OPHTH SOLN 5 ML OU SCH ×2 (08:20→20:13)
[2017-12-31] MEDS: BACITRACIN OINTMENT 28 GM TUBE TOP SCH ×2 (08:20→20:13)
[2017-12-31] MEDS: MECLIZINE 25 MG (ANTIVERT) TAB PO SCH ×3 (08:20→20:13)
[2017-12-31 17:44] VITALS: BP 129/79
[2018-01-01 05:10] VITALS: BP 131/77
[2018-01-01] MEDS: MECLIZINE 25 MG (ANTIVERT) TAB PO SCH ×3 (09:44→20:32)
[2018-01-01] MEDS: BACITRACIN OINTMENT 28 GM TUBE TOP SCH ×2 (09:56→20:31)
[2018-01-01] MEDS: OFLOXACIN 0.3% OPHTH SOLN 5 ML OU SCH ×2 (09:57→20:31)
--- NOTE | 2018-01-01 10:01 | Occupational Ther Daily Note ---
OT Current Status-Daily Note Subjective Pt seen in room, up in recliner, agreeable to OT. Does not want to shower but does want to wash her hair. Mentioned pain and numbness on R side of face but said that it was not worse. Appearance Alert, cooperative Mental Status/Objective Functional [place] Measure 0=Not Assessed/NA 4=Minimal Assistance 1=Total Assistance 5=Supervision or Setup 2=Maximal Assistance 6=Modified [place] 3=Moderate Assistance 7=Complete [place] ADL-Treatment Pt reported that she has been getting up to go to the bathroom by herself over the weekend. Walked to bathroom to wash hair and also toileted mod I. No LOB observed. Functional [place] Measure 0=Not Assessed/NA 4=Minimal Assistance 1=Total Assistance 5=Supervision or Setup 2=Maximal Assistance 6=Modified [place] 3=Moderate Assistance 7=Complete IndependenceIRFPAI Quality Coding Scale 6 Independent with activity with or without an assistive device 5 Patient requires set up or clean up by helper. Patient completes activity by themselves 4 Supervision or touching assist (CGA). [place] provide cues , steadying assist 3 The helper provides less than half the effort to complete the activity 2 The helper provides more than half the effort to complete the activity 1 Dependent. The helper does all the effort to complete an activity 7 Patient refused to complete or attempt activity 9 The patient did not perform the activity before the current illness or injury 88 Not attempted due to Medical conditions or safety concerns Grooming (FIM): 6 (Mod I to wash hands at sink. Cues to keep walker in front instead of off to the sidee) Toileting (FIM): 6 (Managed clothing and hygiene. Tall toilet, grab bar. No LOB observed) Toilet/Commode Transfer (FIM): 6 (On/off tall toilet, grab bar) Other Treatment Pt walked to gym with FWW, no LOB, SBA. Able to get on/off chair with arms without help. Pt completed 15 minutes bilat UE exercise with arm bike set on 20W resistance, (increased resistance) taking only one brief recovery period. She also completed graded clothespins and nuts and bolts, both with 1# weight on each arm (increased from 1/2 pound). All to strengthen arms to help with ADLs and transfers and to increase overall activity tolerance to be able to return home and care for as well as herself. Pt walked back to room, FWW , no LOB and left up in recliner, chair alarm on, all needs met. OT Short Term Goals Short Term Goals Time Frame: Dec 30, 2017 Eating(FIM): 6 Grooming(FIM): 5 Bathing(FIM): 5 Upper Body Dressing(FIM): 5 Lower Body Dressing(FIM): 5 Toileting(FIM): 5 Transfers (B,C,W/C) (FIM): 5 Toilet/Commode Transfer(FIM): 5 Shower Transfer(FIM): 5 Additional Short Term Goals: 1-Demonstrate ADL Tasks, 2-Verbalize Understanding , 3-ImproveStrength/[place] 1=Demonstrate adherence to instructed precautions during ADL tasks. 2=Patient will verbalize/demonstrate understanding of assistive devices/ modifications for ADL. 3=Patient will improve strength/tolerance for activity to enable patient to perform ADL's. OT Correction Goals Die Cast Patternmaker Goals Time Frame: Jan 06, 2018 Eating (FIM): 7 Eating (QC): 6 Groomin Oral Hygiene (QC): 6 Bathing(FIM): 5 Shower/Bathe Self (QC): 5 Upper Body Dressing(FIM): 6 Upper Body Dressing (QC): 6 Lower Body Dressing(FIM): 6 Lower Body Dressing (QC): 6 On/Off Footwear (QC): 6 Toileting(FIM): 6 Toileting Hygiene (QC): 6 Transfers (B,C,W/C) (FIM): 6 Toilet/Commode Transfer(FIM): 6 Toilet/Commode Transfer (QC): 6 Shower Transfer(FIM): 5 Social Interaction(FIM): 7 Problem Solving(FIM): 7 Memory(FIM): 7 Additional Goals: 1-Demonstrate ADL Tasks, 2-Verbalize Understanding, 3- ImproveStrength/Morgan 1=Demonstrate adherence to instructed precautions during ADL tasks. 2=Patient will verbalize/demonstrate understanding of assistive devices/ modifications for ADL. 3=Patient will improve strength/tolerance for activity to enable patient to perform ADL's. OT Education/Plan Discharge Recommendations Plan/Recommendations: Continue POC Treatment Plan/Plan of Care Patient would benefit from OT for education, treatment and training to promote independence in ADL's, mobility, safety and/or upper extremity function for ADL' s. Plan of Care: ADL Retraining, Functional Mobility, Group Exercise/Act as Ind, UE Funct Exercise/Act Treatment Duration: Jan 06, 2018 Frequency: At least 5 of 7 days/Wk (IRF) Estimated Hrs Per Day: 1.5 hours per day Agreement: Yes Rehab Potential: Good Time/GCodes Start Time: 08:45 Stop Time: 10:00 Total Time Billed (hr/min): 75 Billed Treatment Time visit, 20 minutes ADL, 55 minutes exercise TARA LYON OT Jan 01, 2018 10:01
--- NOTE | 2018-01-01 11:35 | Speech Therapy Daily Note ---
Speech Daily Progress Note Subjective Date Seen by Provider: Jan 01, 2018 Time Seen by Provider: 00:30 Patient was alert and sitting in her recliner visiting with her friend. Objective Patient completed memory tasks with 80% accuracy given min to mod verbal cues and/or repetitions. Treatment Plan Continue Plan of Care Communication Comprehension: 3 Expression: 3 Social Cognition Social Interaction: 4 Problem Solvin Memory: 3 Speech Short Term Goals Short Term Goals Short Term Goals Patient will be able to recall verbally presented words within 5 minutes at 90% accuracy. Patient will be able to state the name and function of verbally or visually presented items with 90% accuracy. Patient will be able to complete problem solving tasks with 90% accuracy. Time Frame-ST week Speech Market Research Intern Goals Jail Goals Patient will increase memory and problem solving skills for safety and independence for returning to home. Social Interaction: 7 Problem Solvin Memory: 7 Speech-Plan Patient/Family Goals Patient/Family Goals: Patient plans to return home with her this week. Treatment Plan Speech Therapy Treatment Plan: Continue Plan of Care Patient is progressing on memory and problem solving goals as expected. Treatment Duration: Dec 25, 2017 Frequency: 5 times per week Estimated Hrs Per Day: .5 hour per day Rehab Potential: Good Barriers to Learning: [place] is the patient's second language. Pt/Family Agrees to Plan: Yes Safety Risks/Education Teaching Recipient: Patient Teaching Methods: Discussion Response to Teaching: Verbalize Understanding Education Topics Provided: Patient was educated to not walk unassisted. Time Speech Therapy Time In: 10:30 Speech Therapy Time Out: 11:00 Total Billed Time: 30 Billed Treatment Time 1ABBE [address] Jan 01, 2018 11:35
--- NOTE | 2018-01-01 12:06 | Physical Therapy Daily Note ---
PT Daily Note-Current Subjective Pt. agrees to Rx. States she has been up by herself in the room and out in the camacho, " Im only dizzy if I look at the floor, I think I can get up alone" Pt. difficult to understand at times, but may be indicating she and her plan on having FT care at home Pain Numeric Pain Scale: 0-No Pain Mental Status Patient Orientation: Normal For Age Transfers Functional Gem Measure 0=Not Assessed/NA 4=Minimal Assistance 1=Total Assistance 5=Supervision or Setup 2=Maximal Assistance 6=Modified [place] 3=Moderate Assistance 7=Complete IndependenceIRFPAI Quality Coding Scale 6 Independent with activity with or without an assistive device 5 Patient requires set up or clean up by helper. Patient completes activity by themselves 4 Supervision or touching assist (CGA). [place] provide cues , steadying assist 3 The helper provides less than half the effort to complete the activity 2 The helper provides more than half the effort to complete the activity 1 Dependent. The helper does all the effort to complete an activity 7 Patient refused to complete or attempt activity 9 The patient did not perform the activity before the current illness or injury 88 Not attempted due to Medical conditions or safety concerns Transfers (B, C, W/C) (FIM): 5 Scootin Rollin Supine to/from Sit: 6 Sit to/from Stand: 5 Bed to/from Chair: 5 Car Transfer (QC): 5 Weight Bearing Right Lower Extremity: Right Weight Bearing/Tolerated Left Lower Extremity: Left Weight Bearing/Tolerated Gait Training Does the Patient Walk?: Yes Gait (FIM): 5 Distance (FIM): 3=150 ft (250x3) Gait Level of Assist: 5 Gait Persons Needed: 1 Gait Assistive Device: FWW some LOB , staggering when challenged to change gaze up down and side to side etc Stair Training Stair Training: Handrails/: 2 handrails Stairs (FIM): 3 #of Steps: 8 LOB on stairs x 2 requiring min to mod assist Treatments PRETTY score at 38/56, FT FWW, habituation exercises for gaze, head movement and position changes Assessment Current Status: Good Progress at risk for falls , position changes , visual input etc PT Short Term Goals Short Term Goals Time Frame: Dec 29, 2017 Transfers (B,C,W/C) (FIM): 5 Gait (FIM): 5 Gait Distance Comment: 200' Gait Level of Assist: 5 Gait Assistive Device: FWW PT Baker Helper Goals Skilled Nursing Goals PT Skilled Nursing Goals Time Frame: Jan 12, 2018 Transfers (B,C,W/C) (FIM): 6 Sit to Lying (QC): 6 Lying-Sitting on Side/Bed(QC): 6 Sit to Stand (QC): 6 Rollin Roll Left to Right (QC): 6 Chair/Uec-kz-Mfefe Xfer(QC): 6 Car Transfer (QC): 6 Gait (FIM): 6 Distance: 300' Walk 10 feet (QC): 6 Walk 10ft-Uneven Surface(QC): 6 Walk 50ft with 2 Turns (QC): 6 Walk 150 ft (QC): 6 Gait Level of Assist: 6 Gait Assistive Device: FWW Stairs (FIM): 5 # of Steps: 12 1 Step (curb) (QC): 4 4 Steps (QC): 4 12 Steps (QC): 4 Stairs Level Of Assist: 5 PT Plan Treatment/Plan Treatment Plan: Continue Plan of Care Treatment Plan: Education, Functional Activity Morgan, Functional Strength, Group Therapy, Gait, Safety, Therapeutic Exercise, Transfers Treatment Duration: Jan 12, 2018 Frequency: At least 5 of 7 days/Wk (IRF) Estimated Hrs Per Day: 1.5 hours per day Patient and/or Family Agrees t: Yes Safety Risks/Education Patient Education: Gait Training, Transfer Techniques, Steps, Correct Positioning, Disease Process, Safety Issues Teaching Recipient: Patient Teaching Methods: Demonstration, Discussion Response to Teaching: Verbalize Understanding, Return Demonstration, Reinforcement Needed Time/GCodes Time In: 1105 Time Out: 1205 Total Billed Treatment Time: 60 Total Billed Treatment 1,GT30m,NM30m G Codes Necessary: VICENTA Singh CLOTH GRADER SUPERVISOR Jan 01, 2018 12:06
--- NOTE | 2018-01-01 15:25 | PM & R (SOAP) Progress Note ---
Subjective This was a face to face visit with the patient. Date Seen by Provider: Jan 01, 2018 Time Seen by Provider: 14:40 Subjective/Events-last exam Patient was seen in her room this afternoon Patient hoping to go home later this week.Patient SBA for transfers.will f/u with SW re discharge options Review of Systems Neurological: Other (Impaired balance and chronic dizziness) Objective Physician Exam Last Set of Vital Signs Vital Signs Date Time Temp Pulse Resp B/P (MAP) Pulse Ox O2 Delivery O2 Flow Rate FiO2 01/01/18 09:12 Room Air 01/01/18 05:10 97.1 92 20 131/77 (95) 97 Capillary Refill : I&O Intake and Output 01/01/18 00:00 Intake Total 2504 ml Balance 2504 ml Intake Oral 2504 ml # Voids 11 # Bowel Movements 1 General: Alert, Oriented X3, Cooperative HEENT: PERRLA, EOMI, Mucous Memb Moist/[place], Other ( abrasion scalp healing well Dried blood in RT ear canal) Neck: Supple, No JVD Lungs: Clear to Auscultation Heart: Regular Rate Abdomen: Normal Bowel Sounds, Soft, No Tenderness Extremities: No Edema Neuro: Strength at 5/5 X4 Ext, Sensation Intact, Other (Impaired balance and c/ o dizziness) Psych/Mental Status: Mental Status NL Assessment/Plan Assessment and Plan SAH/ICB secondary to fall teated at OSH medically Abrasion rt occipital scalp healing well Dizziness and hearing loss RT s/p RT temporal bone fracture Chronic Dizziness followed by DR Mccray ENT placed on Antivert and vestibular exercises Impacted RT ear canal treated with drops and will have f/u with ENT as an Outpatient UTI completed course of antibiotics Plan Continue PT/OT and current meds Team Conference 01-03-18 F/U with SW re discharge options for patient who cares for her spouse who has dementia Co-Morbidities that are continuing to impact the rehab process: (include details ) JAGJIT YOON MD Jan 01, 2018 15:25
--- NOTE | 2018-01-01 15:28 | Physical Therapy Daily Note ---
PT Daily Note-Current Subjective Pt. agrees to Rx. Pt. again up out of bed or chair without assistance. While discussing with pt. that she is at risk for falls she states that if she fell again she just hopes she dies. ( 2nd time pt. has made this statement to this DIRECTOR OF FINANCIAL AID) Pt. states Home care and paying someone to help them at home is too expensive. Pain Numeric Pain Scale: 0-No Pain Transfers Functional [place] Measure 0=Not Assessed/NA 4=Minimal Assistance 1=Total Assistance 5=Supervision or Setup 2=Maximal Assistance 6=Modified [place] 3=Moderate Assistance 7=Complete IndependenceIRFPAI Quality Coding Scale 6 Independent with activity with or without an assistive device 5 Patient requires set up or clean up by helper. Patient completes activity by themselves 4 Supervision or touching assist (CGA). [place] provide cues , steadying assist 3 The helper provides less than half the effort to complete the activity 2 The helper provides more than half the effort to complete the activity 1 Dependent. The helper does all the effort to complete an activity 7 Patient refused to complete or attempt activity 9 The patient did not perform the activity before the current illness or injury 88 Not attempted due to Medical conditions or safety concerns bed, chair and toilet transfers all SBA Weight Bearing Right Lower Extremity: Right Weight Bearing/Tolerated Left Lower Extremity: Left Weight Bearing/Tolerated Gait Training Gait Assistive Device: FWW gait 200 ft x 2 no LOB SBA, again working on various visual challenges during movement Exercises NuStep Minutes: 15 NuStep Workload: 5 Assessment Current Status: Good Progress again addressed safety etc. alarm on on bed as pt. sits up EOB, gabriel at hand PT Short Term Goals Short Term Goals Time Frame: Dec 29, 2017 Transfers (B,C,W/C) (FIM): 5 Gait (FIM): 5 Gait Distance Comment: 200' Gait Level of Assist: 5 Gait Assistive Device: FWW PT Curriculum Counselor Goals Curriculum Counselor Goals PT Curriculum Counselor Goals Time Frame: Jan 12, 2018 Transfers (B,C,W/C) (FIM): 6 Sit to Lying (QC): 6 Lying-Sitting on Side/Bed(QC): 6 Sit to Stand (QC): 6 Rollin Roll Left to Right (QC): 6 Chair/Zik-od-Isdhm Xfer(QC): 6 Car Transfer (QC): 6 Gait (FIM): 6 Distance: 300' Walk 10 feet (QC): 6 Walk 10ft-Uneven Surface(QC): 6 Walk 50ft with 2 Turns (QC): 6 Walk 150 ft (QC): 6 Gait Level of Assist: 6 Gait Assistive Device: FWW Stairs (FIM): 5 # of Steps: 12 1 Step (curb) (QC): 4 4 Steps (QC): 4 12 Steps (QC): 4 Stairs Level Of Assist: 5 PT Plan Treatment/Plan Treatment Plan: Continue Plan of Care Treatment Plan: Education, Functional Activity Morgan, Functional Strength, Group Therapy, Gait, Safety, Therapeutic Exercise, Transfers Treatment Duration: Jan 12, 2018 Frequency: At least 5 of 7 days/Wk (IRF) Estimated Hrs Per Day: 1.5 hours per day Patient and/or Family Agrees t: Yes Safety Risks/Education Patient Education: Gait Training, Transfer Techniques, Correct Positioning, Disease Process, Safety Issues Teaching Recipient: Patient Teaching Methods: Demonstration, Discussion Response to Teaching: Return Demonstration, Reinforcement Needed Time/GCodes Time In: 1435 Time Out: 1505 Total Billed Treatment Time: 30 Total Billed Treatment 1,EX15, GT15 G Codes Necessary: VICENTA Singh DIRECTOR OF FINANCIAL AID Jan 01, 2018 15:28
[2018-01-01 17:09] VITALS: BP 129/79
--- NOTE | 2018-01-01 18:26 | Progress Note (SOAP) ---
Subjective Date Seen by a Provider: Jan 01, 2018 Time Seen by a Provider: 18:23 Subjective/Events-last exam Fwup fall with head trauma, SAH, temporal bone fracture with ongoing dizziness and unsteady gait. Ongoing dizziness especially when looks down. Wants to go home but needs 24hr care and states she can't afford the care due to a contract with [employer] that she has to pay them money every month. Also short term memory problems. Objective Exam Vital Signs Date Time Temp Pulse Resp B/P (MAP) Pulse Ox O2 Delivery O2 Flow Rate FiO2 01/01/18 17:09 98.5 82 20 129/79 (96) 100 Room Air 01/01/18 09:12 Room Air 01/01/18 05:10 97.1 92 20 131/77 (95) 97 Room Air 12/31/17 20:21 Room Air I & O 01/01/18 07:00 Intake Total 2494 ml Balance 2494 ml Capillary Refill : General Appearance: No Apparent Distress Neck: Supple Respiratory: Lungs Clear Cardiovascular: Regular Rate, Rhythm Neurologic/Psychiatric: Alert Assessment/Plan Assessment/Plan Assess & Plan/Chief Complaint 1. Fall with Head Trauma resulting in SAH and Temporal Bone fracture--healing but ongoing memory issues and dizziness, will need 24hr care for discharge 2. UTI--DC cipro 3. Unsteady Gait with dizziness--PT/OT, added meclizine low dose 4. Hyperglycemia--accuchecks started and has had one elevation but rest have been low so will monitor Clinical Quality Measures DVT/VTE Risk/Contraindication: Risk Factor Score Per Nursin RFS Level Per Nursing on Admit: 2=Moderate NICANOR ESTRELLA DO Jan 01, 2018 6:26 pm
[2018-01-02 05:56] VITALS: BP 116/77
[2018-01-02] MEDS: OFLOXACIN 0.3% OPHTH SOLN 5 ML OU SCH ×2 (08:49→20:12)
[2018-01-02] MEDS: BACITRACIN OINTMENT 28 GM TUBE TOP SCH ×2 (08:49→20:11)
[2018-01-02] MEDS: MECLIZINE 25 MG (ANTIVERT) TAB PO SCH ×3 (08:49→20:11)
--- NOTE | 2018-01-02 11:09 | Physical Therapy Daily Note ---
PT Daily Note-Current Subjective Pt sitting in recliner upon arrival. Pt reports needing to use restroom before leaving for tx. Pt agrees to PT. Pain Location: No Pain Reported Mental Status Patient Orientation: Person, Place Transfers Functional [place] Measure 0=Not Assessed/NA 4=Minimal Assistance 1=Total Assistance 5=Supervision or Setup 2=Maximal Assistance 6=Modified [place] 3=Moderate Assistance 7=Complete [place] IRFPAI Quality Coding Scale 6 Independent with activity with or without an assistive device 5 Patient requires set up or clean up by helper. Patient completes activity by themselves 4 Supervision or touching assist (CGA). [place] provide cues , steadying assist 3 The helper provides less than half the effort to complete the activity 2 The helper provides more than half the effort to complete the activity 1 Dependent. The helper does all the effort to complete an activity 7 Patient refused to complete or attempt activity 9 The patient did not perform the activity before the current illness or injury 88 Not attempted due to Medical conditions or safety concerns Scootin Sit to/from Stand: 5 Sit to Stand (QC): 5 Weight Bearing Right Lower Extremity: Right Weight Bearing/Tolerated Left Lower Extremity: Left Weight Bearing/Tolerated Gait Training Does the Patient Walk?: Yes Distance (FIM): 3=150 ft Distance: 750' Walk 10 feet (QC): 5 Walk 50 ft with 2 Turns(QC): 5 Walk 150 ft (QC): 5 Gait Level of Assist: 5 Gait Persons Needed: 1 Gait Assistive Device: FWW Pt needs VC to stay closer to FWW. Wheelchair Training Does the Pt Use a Wheelchair?: No Stair Training Stair Training: Handrails/: 2 handrails #of Steps: 12 1 Step (curb) (QC): 5 4 Steps (QC): 5 12 Steps (QC): 5 Stairs: Pattern: Reciprocal Level of Assist: 5 Exercises Standing: Hamstring curls, Heel/toe raises, 3 way Ex=Flex, Abd, Ext, Mini squats, Weight shifts Standing Reps: 20 NuStep Minutes: 21 NuStep Workload: 5 Treatments Pt uses restroom before leaving room for tx. Pt transfers and ambulates using FWW at SBA for occasional LOB. Pt is able to self correct with BUSINESS OBJECTS ARCHITECT assist. Pt uses NuStep for 21m at 5. Pt takes short rest then ambulates 12 steps, followed by short rest. Pt completes Standing Ex at //bars. Pt ambulates in hallway and carpeted area of main floor of hospital. Pt returns to room to use restroom before ST. Pt resting in recliner with all needs met. Assessment Current Status: Good Progress Pt has occasional LOB when ambulating but able to self correct without BUSINESS OBJECTS ARCHITECT assist. Pt reports less dizziness with looking down and side to side during activity. PT Short Term Goals Short Term Goals Time Frame: Dec 29, 2017 Transfers (B,C,W/C) (FIM): 5 Gait (FIM): 5 Gait Distance Comment: 200' Gait Level of Assist: 5 Gait Assistive Device: FWW PT [place] Closer Goals Retirement Goals PT Retirement Goals Time Frame: Jan 12, 2018 Transfers (B,C,W/C) (FIM): 6 Sit to Lying (QC): 6 Lying-Sitting on Side/Bed(QC): 6 Sit to Stand (QC): 6 Rollin Roll Left to Right (QC): 6 Chair/Tqq-bg-Hjdcy Xfer(QC): 6 Car Transfer (QC): 6 Gait (FIM): 6 Distance: 300' Walk 10 feet (QC): 6 Walk 10ft-Uneven Surface(QC): 6 Walk 50ft with 2 Turns (QC): 6 Walk 150 ft (QC): 6 Gait Level of Assist: 6 Gait Assistive Device: FWW Stairs (FIM): 5 # of Steps: 12 1 Step (curb) (QC): 4 4 Steps (QC): 4 12 Steps (QC): 4 Stairs Level Of Assist: 5 PT Plan Problem List Problem List: Activity Tolerance, Safety, Balance Treatment/Plan Treatment Plan: Continue Plan of Care Treatment Plan: Education, Functional Activity [place], Functional Strength, Group Therapy, Gait, Safety, Therapeutic Exercise, Transfers Treatment Duration: Jan 12, 2018 Frequency: At least 5 of 7 days/Wk (IRF) Estimated Hrs Per Day: 1.5 hours per day Patient and/or Family Agrees t: Yes Safety Risks/Education Patient Education: Gait Training, Transfer Techniques, Correct Positioning, Safety Issues Teaching Recipient: Patient Teaching Methods: Discussion Response to Teaching: Verbalize Understanding Time/GCodes Time In: 915 Time Out: 1030 Total Billed Treatment Time: 75 Total Billed Treatment 1, FA x2 (25m), EX x2 (30m) & GT (20m) G Codes Necessary: TIMOTHY Fernández BUSINESS OBJECTS ARCHITECT Jan 02, 2018 11:09
--- NOTE | 2018-01-02 12:07 | Occupational Ther Daily Note ---
OT Current Status-Daily Note Subjective Pt sitting EOB, would like to shower this morning. Pt has no c/o pain, but states she is tired secondary to not sleeping well. Mental Status/Objective Functional [place] Measure 0=Not Assessed/NA 4=Minimal Assistance 1=Total Assistance 5=Supervision or Setup 2=Maximal Assistance 6=Modified [place] 3=Moderate Assistance 7=Complete [place] ADL-Treatment Gait to restroom with FWW. Transfer to walk in shower with SBA. Pt doffed clothing without assistance. Bathing completed using hand held shower. Pt able to wash/dry all areas with SBA. Don pullover shirt and sweater with set up. Pt donned pants and socks with set up. Stood at sink to comb hair with modified independence. Toilet transfer completed with modified independence. Pt able to manage clothing and hygiene with modified independence. Stood at sink to wash hands without assistance. Functional [place] Measure 0=Not Assessed/NA 4=Minimal Assistance 1=Total Assistance 5=Supervision or Setup 2=Maximal Assistance 6=Modified [place] 3=Moderate Assistance 7=Complete [place] IRFPAI Quality Coding Scale 6 Independent with activity with or without an assistive device 5 Patient requires set up or clean up by helper. Patient completes activity by themselves 4 Supervision or touching assist (CGA). [place] provide cues , steadying assist 3 The helper provides less than half the effort to complete the activity 2 The helper provides more than half the effort to complete the activity 1 Dependent. The helper does all the effort to complete an activity 7 Patient refused to complete or attempt activity 9 The patient did not perform the activity before the current illness or injury 88 Not attempted due to Medical conditions or safety concerns Grooming (FIM): 6 Bathing (FIM): 5 Shower/Bathe Self (QC): 4 Upper Body (FIM): 5 Upper Body Dressing (QC): 5 Lower Body Dressing (FIM): 5 Lower Body Dressing (QC): 5 On/Off Footwear (QC): 5 Toileting (FIM): 6 Toileting Hygiene (QC): 6 Toilet/Commode Transfer (FIM): 6 Toilet Transfer (QC): 6 Shower Transfer(FIM): 5 Other Treatment Gait to therapy gym with FWW, no LOB noted. Arm bike [id number] to increase overall strength and activity tolerance needed for functional tasks. Pt completed activity with moderate resistance and slow pace. One rest break taken during task. Pt completed resistance peg activity with bilateral UE with 1# weights in place to increase strength for ADLs and transfers. Pt complete task with slow pace, but did not require any assistance. Pt returned to room, sitting in chair with needs met and chair alarm in place after session. OT Short Term Goals Short Term Goals Time Frame: Dec 30, 2017 Eating(FIM): 6 Grooming(FIM): 5 Bathing(FIM): 5 Upper Body Dressing(FIM): 5 Lower Body Dressing(FIM): 5 Toileting(FIM): 5 Transfers (B,C,W/C) (FIM): 5 Toilet/Commode Transfer(FIM): 5 Shower Transfer(FIM): 5 Additional Short Term Goals: 1-Demonstrate ADL Tasks, 2-Verbalize Understanding , 3-ImproveStrength/[place] 1=Demonstrate adherence to instructed precautions during ADL tasks. 2=Patient will verbalize/demonstrate understanding of assistive devices/ modifications for ADL. 3=Patient will improve strength/tolerance for activity to enable patient to perform ADL's. OT [place] Goals Retirement Goals Time Frame: Jan 06, 2018 Eating (FIM): 7 Eating (QC): 6 Groomin Oral Hygiene (QC): 6 Bathing(FIM): 5 Shower/Bathe Self (QC): 5 Upper Body Dressing(FIM): 6 Upper Body Dressing (QC): 6 Lower Body Dressing(FIM): 6 Lower Body Dressing (QC): 6 On/Off Footwear (QC): 6 Toileting(FIM): 6 Toileting Hygiene (QC): 6 Transfers (B,C,W/C) (FIM): 6 Toilet/Commode Transfer(FIM): 6 Toilet/Commode Transfer (QC): 6 Shower Transfer(FIM): 5 Social Interaction(FIM): 7 Problem Solving(FIM): 7 Memory(FIM): 7 Additional Goals: 1-Demonstrate ADL Tasks, 2-Verbalize Understanding, 3- ImproveStrength/Morgan 1=Demonstrate adherence to instructed precautions during ADL tasks. 2=Patient will verbalize/demonstrate understanding of assistive devices/ modifications for ADL. 3=Patient will improve strength/tolerance for activity to enable patient to perform ADL's. OT Education/Plan Discharge Recommendations Plan/Recommendations: Continue POC Treatment Plan/Plan of Care Patient would benefit from OT for education, treatment and training to promote independence in ADL's, mobility, safety and/or upper extremity function for ADL' s. Plan of Care: ADL Retraining, Functional Mobility, Group Exercise/Act as Ind, UE Funct Exercise/Act Treatment Duration: Jan 06, 2018 Frequency: At least 5 of 7 days/Wk (IRF) Estimated Hrs Per Day: 1.5 hours per day Agreement: Yes Rehab Potential: Good Time/GCodes Start Time: 08:00 Stop Time: 09:15 Total Time Billed (hr/min): 75 Billed Treatment Time 1 visit, ADLx3(45minutes), EXx2(30minutes) ZEENAT JOSE OT Jan 02, 2018 12:07
--- NOTE | 2018-01-02 12:09 | PM & R (SOAP) Progress Note ---
Subjective This was a face to face visit with the patient. Date Seen by Provider: Jan 02, 2018 Time Seen by Provider: 07:50 Subjective/Events-last exam Patient was seen in her room this AM Patient SBA for transfers Objective Physician Exam Last Set of Vital Signs Vital Signs Date Time Temp Pulse Resp B/P (MAP) Pulse Ox O2 Delivery O2 Flow Rate FiO2 01/02/18 09:00 Room Air 01/02/18 05:56 97.2 74 16 116/77 (90) 98 Capillary Refill : I&O Intake and Output 01/02/18 00:00 Intake Total 2230 ml Balance 2230 ml Intake Oral 2230 ml # Voids 9 # Bowel Movements 1 General: Alert, Oriented X3, Cooperative HEENT: PERRLA, EOMI, Mucous Memb Moist/[place], Other ( abrasion scalp healing well Dried blood in RT ear canal) Neck: Supple, No JVD Lungs: Clear to Auscultation Heart: Regular Rate Abdomen: Normal Bowel Sounds, Soft, No Tenderness Extremities: No Edema Neuro: Strength at 5/5 X4 Ext, Sensation Intact, Other (Impaired balance and c/ o dizziness) Psych/Mental Status: Mental Status NL Assessment/Plan Assessment and Plan SAH/ICB secondary to fall treated at OSH medically Abrasion rt occipital scalp healing well Chronic dizziness being followed by DR Mccray ENT Rt temporal bone fracture with Dried blood in rt ear canal with hearing loss ENT to f/u as an outpatient UTI completed course of antibiotic Plan Continue Pt/OT Team Conference tomorrow Discuss discharge options with SW/Team Co-Morbidities that are continuing to impact the rehab process: (include details ) JAGJIT YOON MD Jan 02, 2018 12:09
--- NOTE | 2018-01-02 12:37 | Speech Therapy Daily Note ---
Speech Daily Progress Note Subjective Date Seen by Provider: Jan 02, 2018 Time Seen by Provider: 00:30 Patient up in her recliner resting waiting for ST to begin. Objective Patient completed a series of memory for safety scenarios and solutions within a living environment with 80% accuracy given minimal cues. Treatment Plan Continue Plan of Care Communication Comprehension: 3 Expression: 3 Social Cognition Social Interaction: 4 Problem Solvin Memory: 3 Speech Short Term Goals Short Term Goals Short Term Goals Patient will be able to recall verbally presented words within 5 minutes at 90% accuracy. Patient will be able to state the name and function of verbally or visually presented items with 90% accuracy. Patient will be able to complete problem solving tasks with 90% accuracy. Time Frame-ST week Speech Snf Goals Asbestos Siding Installer Goals Patient will increase memory and problem solving skills for safety and independence for returning to home. Social Interaction: 7 Problem Solvin Memory: 7 Speech-Plan Patient/Family Goals Patient/Family Goals: Patient plans to return home with her by the end of this week. Treatment Plan Speech Therapy Treatment Plan: Continue Plan of Care Patient is progressing on all goals. Treatment Duration: Dec 25, 2017 Frequency: 5 times per week Estimated Hrs Per Day: .5 hour per day Rehab Potential: Good Barriers to Learning: Patient speaks Persian as a second language. Pt/Family Agrees to Plan: Yes Safety Risks/Education Teaching Recipient: Patient Teaching Methods: Discussion Response to Teaching: Verbalize Understanding Education Topics Provided: Safety awareness situations to avoid. Time Speech Therapy Time In: 10:30 Speech Therapy Time Out: 11:00 Total Billed Time: 30 Billed Treatment Time 1, TEDDY Moore Jan 02, 2018 12:37
[2018-01-02 18:01] VITALS: BP 146/85
--- NOTE | 2018-01-02 19:24 | Progress Note (SOAP) ---
Subjective Date Seen by a Provider: Jan 02, 2018 Time Seen by a Provider: 12:50 Subjective/Events-last exam Fwup fall with head trauma, SAH, temporal bone fracture with ongoing dizziness and unsteady gait. Resting after lunch. SS working on DC plans as patient and need 24hr care. Objective Exam Vital Signs Date Time Temp Pulse Resp B/P (MAP) Pulse Ox O2 Delivery O2 Flow Rate FiO2 01/02/18 18:01 97.0 82 20 146/85 (105) 98 Room Air 01/02/18 09:00 Room Air 01/02/18 05:56 97.2 74 16 116/77 (90) 98 Room Air 01/01/18 21:00 Room Air I & O 01/02/18 07:00 Intake Total 1800 ml Balance 1800 ml Capillary Refill : General Appearance: No Apparent Distress Neck: Supple Respiratory: Lungs Clear Cardiovascular: Regular Rate, Rhythm Skin: Warm/Dry Assessment/Plan Assessment/Plan Assess & Plan/Chief Complaint 1. Fall with Head Trauma resulting in SAH and Temporal Bone fracture--healing but ongoing memory issues and dizziness, will need 24hr care for discharge 2. UTI--resolved 3. Unsteady Gait with dizziness--PT/OT, added meclizine low dose 4. Hyperglycemia--accuchecks BID Clinical Quality Measures DVT/VTE Risk/Contraindication: Risk Factor Score Per Nursin RFS Level Per Nursing on Admit: 2=Moderate NICANOR ESTRELLA DO Jan 02, 2018 7:24 pm
[2018-01-03 05:59] VITALS: BP 107/63
[2018-01-03] MEDS: MECLIZINE 25 MG (ANTIVERT) TAB PO SCH ×3 (09:24→20:23)
[2018-01-03] MEDS: OFLOXACIN 0.3% OPHTH SOLN 5 ML OU SCH ×2 (09:25→20:23)
[2018-01-03] MEDS: BACITRACIN OINTMENT 28 GM TUBE TOP SCH ×2 (09:25→20:23)
--- NOTE | 2018-01-03 09:32 | Physical Therapy Daily Note ---
PT Daily Note-Current Subjective Pt sitting at EOB. Pt agrees to PT but reports needing to eat breakfast, had been ordered. Pain Location: No Pain Reported Mental Status Patient Orientation: Person, Place Transfers Functional [place] Measure 0=Not Assessed/NA 4=Minimal Assistance 1=Total Assistance 5=Supervision or Setup 2=Maximal Assistance 6=Modified [place] 3=Moderate Assistance 7=Complete [place] IRFPAI Quality Coding Scale 6 Independent with activity with or without an assistive device 5 Patient requires set up or clean up by helper. Patient completes activity by themselves 4 Supervision or touching assist (CGA). [place] provide cues , steadying assist 3 The helper provides less than half the effort to complete the activity 2 The helper provides more than half the effort to complete the activity 1 Dependent. The helper does all the effort to complete an activity 7 Patient refused to complete or attempt activity 9 The patient did not perform the activity before the current illness or injury 88 Not attempted due to Medical conditions or safety concerns [place] Sit to/from Stand: 5 Sit to Stand (QC): 5 Weight Bearing Right Lower Extremity: Right Weight Bearing/Tolerated Left Lower Extremity: Left Weight Bearing/Tolerated PT Short Term Goals Short Term Goals Time Frame: Dec 29, 2017 Transfers (B,C,W/C) (FIM): 5 Gait (FIM): 5 Gait Distance Comment: 200' Gait Level of Assist: 5 Gait Assistive Device: FWW PT Press Feeder Goals Jail Goals PT Press Feeder Goals Time Frame: Jan 12, 2018 Transfers (B,C,W/C) (FIM): 6 Sit to Lying (QC): 6 Lying-Sitting on Side/Bed(QC): 6 Sit to Stand (QC): 6 Rollin Roll Left to Right (QC): 6 Chair/Qsm-yc-Hnjgb Xfer(QC): 6 Car Transfer (QC): 6 Gait (FIM): 6 Distance: 300' Walk 10 feet (QC): 6 Walk 10ft-Uneven Surface(QC): 6 Walk 50ft with 2 Turns (QC): 6 Walk 150 ft (QC): 6 Gait Level of Assist: 6 Gait Assistive Device: FWW Stairs (FIM): 5 # of Steps: 12 1 Step (curb) (QC): 4 4 Steps (QC): 4 12 Steps (QC): 4 Stairs Level Of Assist: 5 PT Plan Problem List Problem List: Activity Tolerance, Safety Treatment/Plan Treatment Plan: Continue Plan of Care Treatment Plan: Education, Functional Activity Morgan, Functional Strength, Group Therapy, Gait, Safety, Therapeutic Exercise, Transfers Treatment Duration: Jan 12, 2018 Frequency: At least 5 of 7 days/Wk (IRF) Estimated Hrs Per Day: 1.5 hours per day Patient and/or Family Agrees t: Yes Safety Risks/Education Patient Education: Correct Positioning, Safety Issues Teaching Recipient: Patient Teaching Methods: Discussion Response to Teaching: Verbalize Understanding Time/GCodes Time In: 800 Time Out: 845 Total Billed Treatment Time: 45 Total Billed Treatment 1, FA x2 (30m) & EX (15m) G Codes Necessary: TIMOTHY Fernández SUPERVISOR [employer] Jan 03, 2018 09:32
--- NOTE | 2018-01-03 09:35 | PM & R (SOAP) Progress Note ---
Subjective This was a face to face visit with the patient. Date Seen by Provider: Jan 03, 2018 Time Seen by Provider: 07:50 Subjective/Events-last exam Patient was seen in her room this AM Patient SBA to Mod Independent for transfers Patient concerned re using RW on Carpet reassured will discuss with staff Objective Physician Exam Last Set of Vital Signs Vital Signs Date Time Temp Pulse Resp B/P (MAP) Pulse Ox O2 Delivery O2 Flow Rate FiO2 01/03/18 05:59 98.2 96 18 107/63 (78) 98 Room Air Capillary Refill : I&O Intake and Output 01/03/18 00:00 Intake Total 1600 ml Balance 1600 ml Intake Oral 1600 ml # Voids 8 # Bowel Movements 1 General: Alert, Oriented X3, Cooperative HEENT: PERRLA, EOMI, Mucous Memb Moist/[place], Other ( abrasion scalp healing well Dried blood in RT ear canal) Neck: Supple, No JVD Lungs: Clear to Auscultation Heart: Regular Rate Abdomen: Normal Bowel Sounds, Soft, No Tenderness Extremities: No Edema Neuro: Strength at 5/5 X4 Ext, Sensation Intact, Other (Impaired balance and c/ o dizziness) Psych/Mental Status: Mental Status NL Assessment/Plan Assessment and Plan SAH/ICB secondary to fall treated at OSH medically Abrasion rt occipital scalp healed Chronic dizziness followed by ENT RT temporal bone fracture with dried blood rt ear canal with hearing loss ENT has ordered drops and f/u with them in their clinic UTI completed course of antibiotic Plan Continue PT/OT Team Conference later today-See report for full functional update and POC and ELOS Will discuss discharge options with SW/Team Co-Morbidities that are continuing to impact the rehab process: (include details ) JAGJIT YOON MD Jan 03, 2018 09:35
--- NOTE | 2018-01-03 10:04 | Speech Therapy Daily Note ---
Speech Daily Progress Note Subjective Date Seen by Provider: Jan 03, 2018 Time Seen by Provider: 00:30 Patient pleasant and cooperative. She was able to engage in conversation. Objective Patient completed memory for opposites with written material at 90% with minimal cues. Treatment Plan Continue Plan of Care Communication Comprehension: 3 Expression: 3 Social Cognition Social Interaction: 4 Problem Solvin Memory: 3 Speech Short Term Goals Short Term Goals Short Term Goals Patient will be able to recall verbally presented words within 5 minutes at 90% accuracy. Patient will be able to state the name and function of verbally or visually presented items with 90% accuracy. Patient will be able to complete problem solving tasks with 90% accuracy. Time Frame-ST week Speech [facility] Goals [employer] Of Directors Goals Patient will increase memory and problem solving skills for safety and independence for returning to home. Social Interaction: 7 Problem Solvin Memory: 7 Speech-Plan Patient/Family Goals Patient/Family Goals: Patient plans to return home with her . Treatment Plan Speech Therapy Treatment Plan: Continue Plan of Care Patient is in the process with long term care social worker to line up 24 hour care in her home so that she will be there with her . Treatment Duration: Dec 25, 2017 Frequency: 5 times per week Estimated Hrs Per Day: .5 hour per day Rehab Potential: Good Barriers to Learning: Latvian is the patient's second language. Pt/Family Agrees to Plan: Yes Safety Risks/Education Teaching Recipient: Patient Teaching Methods: Discussion Response to Teaching: Verbalize Understanding Education Topics Provided: Safety within her home upon her return. Time Speech Therapy Time In: 09:00 Speech Therapy Time Out: 09:30 Total Billed Time: 30 Billed Treatment Time 1ABBE [place] [facility] Jan 03, 2018 10:04
--- NOTE | 2018-01-03 13:01 | Occupational Ther Daily Note ---
OT Current Status-Daily Note Subjective Pt alert, sitting EOB. Pt thinking she is leaving today, but will leave tomorrow. Pt agrees to therapy. No c/o pain. Mental Status/Objective Patient Orientation: Person, Place, Time, Situation Functional [place] Measure 0=Not Assessed/NA 4=Minimal Assistance 1=Total Assistance 5=Supervision or Setup 2=Maximal Assistance 6=Modified [place] 3=Moderate Assistance 7=Complete [place] ADL-Treatment Functional [place] Measure 0=Not Assessed/NA 4=Minimal Assistance 1=Total Assistance 5=Supervision or Setup 2=Maximal Assistance 6=Modified [place] 3=Moderate Assistance 7=Complete [place] IRFPAI Quality Coding Scale 6 Independent with activity with or without an assistive device 5 Patient requires set up or clean up by helper. Patient completes activity by themselves 4 Supervision or touching assist (CGA). [place] provide cues , steadying assist 3 The helper provides less than half the effort to complete the activity 2 The helper provides more than half the effort to complete the activity 1 Dependent. The helper does all the effort to complete an activity 7 Patient refused to complete or attempt activity 9 The patient did not perform the activity before the current illness or injury 88 Not attempted due to Medical conditions or safety concerns Eating (FIM): 7 (Able to open containers/packages then use regular utensils to eat.) Eating (QC): 6 Grooming (FIM): 7 (Using counter for stabilization, pt is able to stand at sink to complete own grooming.) Oral Hygiene (QC): 6 Bathing (FIM): 6 (Using grabbar, hand held shower and shower bench pt is able to complete by self. Safety concerns.) Bathing Location: L Arm, R Arm, L Upper Leg, R Upper Leg, L Lower Leg ( including foot), R Lower Leg (including foot), Chest, Abdomen, Buttocks, Perineal Area Shower/Bathe Self (QC): 6 Upper Body (FIM): 6 (Retrieves clothing with FWW and is able to don/doff by self.) Upper Body Dressing (QC): 6 Lower Body Dressing (FIM): 6 (Retrieves clothing with FWW and is able to don/ doff by self. Safety concerns with standing.) Lower Body Dressing (QC): 6 On/Off Footwear (QC): 6 Toileting (FIM): 6 (Using grabbars and FWW, pt able to complete by self.) Toileting Hygiene (QC): 6 Toilet/Commode Transfer (FIM): 6 (Using grabbars and FWW, pt able to complete by self.) Toilet Transfer (QC): 6 Shower Transfer(FIM): 6 (Using shower bench, grabbars and FWW pt able to complete by self. Safety concerns.) Other Treatment Pt ambulated with FWW to therapy gym. Completed UE exercises to increase strength and activity tolerance for ADLs and transfers. Arm bike 15 min at 20 wild resistance without breaks. Resistive clothespins completed with matching colors for visual perceptual exercises. Fine motor activities to work on dexterity and finger manipulation for ADLs. Ambulated to room with FWW. After therapy, pt sitting EOB with call light/phone in reach. All needs met in room. OT Short Term Goals Short Term Goals Time Frame: Dec 30, 2017 Eating(FIM): 6 Grooming(FIM): 5 Bathing(FIM): 5 Upper Body Dressing(FIM): 5 Lower Body Dressing(FIM): 5 Toileting(FIM): 5 Transfers (B,C,W/C) (FIM): 5 Toilet/Commode Transfer(FIM): 5 Shower Transfer(FIM): 5 Additional Short Term Goals: 1-Demonstrate ADL Tasks, 2-Verbalize Understanding , 3-ImproveStrength/Morgan 1=Demonstrate adherence to instructed precautions during ADL tasks. 2=Patient will verbalize/demonstrate understanding of assistive devices/ modifications for ADL. 3=Patient will improve strength/tolerance for activity to enable patient to perform ADL's. OT Mcc Goals [employer] Erp Architect Goals Time Frame: Jan 06, 2018 Eating (FIM): 7 (met) Eating (QC): 6 (met) Groomin (met) Oral Hygiene (QC): 6 (met) Bathing(FIM): 5 (met) Shower/Bathe Self (QC): 5 (met) Upper Body Dressing(FIM): 6 (met) Upper Body Dressing (QC): 6 (met) Lower Body Dressing(FIM): 6 (met) Lower Body Dressing (QC): 6 (met) On/Off Footwear (QC): 6 (met) Toileting(FIM): 6 (met) Toileting Hygiene (QC): 6 (met) Transfers (B,C,W/C) (FIM): 6 (met) Toilet/Commode Transfer(FIM): 6 (met) Toilet/Commode Transfer (QC): 6 (met) Shower Transfer(FIM): 5 (met) Social Interaction(FIM): 7 Problem Solving(FIM): 7 Memory(FIM): 7 Additional Goals: 1-Demonstrate ADL Tasks, 2-Verbalize Understanding, 3- ImproveStrength/Morgan 1=Demonstrate adherence to instructed precautions during ADL tasks. 2=Patient will verbalize/demonstrate understanding of assistive devices/ modifications for ADL. 3=Patient will improve strength/tolerance for activity to enable patient to perform ADL's. OT Education/Plan Discharge Recommendations Plan/Recommendations: Continue POC Treatment Plan/Plan of Care Patient would benefit from OT for education, treatment and training to promote independence in ADL's, mobility, safety and/or upper extremity function for ADL' s. Plan of Care: ADL Retraining, Functional Mobility, Group Exercise/Act as Ind, UE Funct Exercise/Act Treatment Duration: Jan 06, 2018 Frequency: At least 5 of 7 days/Wk (IRF) Estimated Hrs Per Day: 1.5 hours per day Agreement: Yes Rehab Potential: Good Time/GCodes Start Time: 11:30 Stop Time: 12:45 Total Time Billed (hr/min): 75 Billed Treatment Time 1 visit-ADL 3 (45 min) EX 2 (30 min) MISHA KC Jan 03, 2018 13:01
--- NOTE | 2018-01-03 13:57 | Physical Therapy Daily Note ---
PT Daily Note-Current Subjective Pt up in restroom by herself upon arrival. Pt agrees to PT and AUDIT PARTNER reminds pt that needs to use call light when getting up for safety. Pain Location: No Pain Reported Mental Status Patient Orientation: Person, Place Transfers Functional [place] Measure 0=Not Assessed/NA 4=Minimal Assistance 1=Total Assistance 5=Supervision or Setup 2=Maximal Assistance 6=Modified [place] 3=Moderate Assistance 7=Complete [place] IRFPAI Quality Coding Scale 6 Independent with activity with or without an assistive device 5 Patient requires set up or clean up by helper. Patient completes activity by themselves 4 Supervision or touching assist (CGA). [place] provide cues , steadying assist 3 The helper provides less than half the effort to complete the activity 2 The helper provides more than half the effort to complete the activity 1 Dependent. The helper does all the effort to complete an activity 7 Patient refused to complete or attempt activity 9 The patient did not perform the activity before the current illness or injury 88 Not attempted due to Medical conditions or safety concerns Transfers (B, C, W/C) (FIM): 6 Scootin Rollin Roll Left to Right (QC): 6 Supine to/from Sit: 6 Sit to/from Stand: 6 Sit to Lying (QC): 6 Sit to Stand (QC): 6 Chair/Bra-yw-Anigb Xfer(QC): 6 Bed to/from Chair: 6 Car Transfer (QC): 6 Pt is Mod I with safety concerns. Weight Bearing Right Lower Extremity: Right Weight Bearing/Tolerated Left Lower Extremity: Left Weight Bearing/Tolerated Gait Training Does the Patient Walk?: Yes Gait (FIM): 6 Distance (FIM): 3=150 ft Distance: 400' Walk 10 feet (QC): 6 Walk 50 ft with 2 Turns(QC): 6 Walk 150 ft (QC): 6 Walking 10ft/uneven surface-QC: 6 Gait Level of Assist: 6 Gait Persons Needed: 1 Gait Assistive Device: FWW AUDIT PARTNER tried pt without AD as pt requested and pt was at CGA. Pt demonstrated LOB x2 and AUDIT PARTNER felt pt should continue to use FWW at this time for safety. Wheelchair Training Does the Pt Use a Wheelchair?: No Stair Training Stair Training: Handrails/: 2 handrails Stairs (FIM): 6 #of Steps: 12 1 Step (curb) (QC): 6 4 Steps (QC): 6 12 Steps (QC): 6 Stairs: Pattern: Reciprocal Level of Assist: 6 AUDIT PARTNER gives VC to slow down a little with ambulation of steps for safety. Balance Picking up an Object (QC): 6 Treatments Pt completes transfers including bed mobility and car transfer at Mod I. Pt ambulates using FWW at Mod I including 12 steps in staircase and walking across varying surface. Pt is able to chart picker object at Mod I as well although all activities are completed with safety concerns. AUDIT PARTNER gives VC for safety and although pt is able to complete Mod I, it is not always the safest way to complete task. Pt returns to room at end of tx with all needs met. Assessment Current Status: Good Progress Pt continues to not demonstrate social awareness although is able to complete tasks given. PT Short Term Goals Short Term Goals Time Frame: Dec 29, 2017 Transfers (B,C,W/C) (FIM): 5 Gait (FIM): 5 Gait Distance Comment: 200' Gait Level of Assist: 5 Gait Assistive Device: FWW PT Chcf Goals Blueprinter Goals PT Chcf Goals Time Frame: Jan 12, 2018 Transfers (B,C,W/C) (FIM): 6 Sit to Lying (QC): 6 Lying-Sitting on Side/Bed(QC): 6 Sit to Stand (QC): 6 Rollin Roll Left to Right (QC): 6 Chair/Jzg-im-Fvfcp Xfer(QC): 6 Car Transfer (QC): 6 Gait (FIM): 6 Distance: 300' Walk 10 feet (QC): 6 Walk 10ft-Uneven Surface(QC): 6 Walk 50ft with 2 Turns (QC): 6 Walk 150 ft (QC): 6 Gait Level of Assist: 6 Gait Assistive Device: FWW Stairs (FIM): 5 # of Steps: 12 1 Step (curb) (QC): 4 4 Steps (QC): 4 12 Steps (QC): 4 Stairs Level Of Assist: 5 PT Plan Problem List Problem List: Activity Tolerance, Safety Treatment/Plan Treatment Plan: Continue Plan of Care Treatment Plan: Education, Functional Activity Morgan, Functional Strength, Group Therapy, Gait, Safety, Therapeutic Exercise, Transfers Treatment Duration: Jan 12, 2018 Frequency: At least 5 of 7 days/Wk (IRF) Estimated Hrs Per Day: 1.5 hours per day Patient and/or Family Agrees t: Yes Safety Risks/Education Patient Education: Gait Training, Transfer Techniques, Correct Positioning, Safety Issues Teaching Methods: Discussion Response to Teaching: Reinforcement Needed Time/GCodes Time In: 1330 Time Out: 1400 Total Billed Treatment Time: 30 Total Billed Treatment 1, GT (15m) & FA (15m) G Codes Necessary: TIMOTHY Fernández AUDIT PARTNER Jan 03, 2018 13:57
[2018-01-03] MEDS ORDERED: MECL-106 PO (15:31)
[2018-01-03] MEDS ORDERED: OFL.3OP5 OU (15:31)
[2018-01-03] MEDS ORDERED: SOD CHL GEL 0.5 OZ (AYR SALINE NASAL GEL) TUBE TOP PRN (16:00)
--- NOTE | 2018-01-03 16:36 | D/C HH Face to Face Order ---
D/C Face to Face Orders Instructions for Patient Via [facility], Patient Instructions/FollowUp: Dr. Sweeney Physician to follow Patient: Dr. Sweeney Discharge Diet for Home: Regular Diet Patient Data-Allergies,Ht & Wt Patient Allergies: Coded Allergies: No Known Drug Allergies (Verified , 04/29/15) Height (Feet): 5 Height (Inches): 0.00 Weight (Pounds): 113 Weight (Ounces): 3.2 Home Health Need/Face to Face Date of Face to Face: Jan 04, 2018 Clinical Findings: Generalized weakness and fatigue, Muscle weakness, Unsteady gait I have seen Pt [id number]: Yes Discharged To: Home Diagnosis/Conditions: Intracranial injury Patient is Homebound due to: CognItive deficits, Tom fall risk due to instabilty, Muscle weakness Homebound Status Due to the above stated illness, injury or surgical procedure (medical condition or diagnosis) and associated clinical findings, the patient is homebound because of his/her inability to leave home except with aid of a supportive device and/or person AND leaving the home requires a considerable and taxing effort or is medically contraindicated. Pt req the following assistanc: Walker Home Health Nursing Orders Home Health Services Order: Nursing Services, Physical Therapy-Evaluate & Treat , Speech Language-Evaluate & Treat RN to monitor BP and assess home safety, ST for cognition, PT for strengthening Therapy Orders Therapy Orders: Physical Therapy, Speech Language Pathology Therapy Specific Orders: Eval assistive deivces, Teach strategies/cognitive deficits, Teach enviro modifications/safety, Gait training, Increase strength/ endurance, Restore ROM Certify Stmt I certify that this patient is under my care and that I, a nurse practitioner or a physician; a painter assistant working with me, had a face to face encounter that - meets the physician face to face encounter requirements with this patient as dated. I personally scribed for JAGJIT YOON MD ([facility]) on 01/03/18 at 16:36. Electronically submitted by Regi Drummond ([id number]). JAGJIT YOON MD Jan 03, 2018 16:36
[2018-01-03 17:54] VITALS: BP 116/72
--- NOTE | 2018-01-03 18:28 | Progress Note (SOAP) ---
Subjective Date Seen by a Provider: Jan 03, 2018 Time Seen by a Provider: 12:35 Subjective/Events-last exam Fwup fall with head trauma, SAH, temporal bone fracture with ongoing dizziness and unsteady gait. Plan is for DC home tomorrow with home health nursing, home PT and OT and still trying to persuade her into in home care so an agency will be coming by to meet with her as well. Objective Exam Vital Signs Date Time Temp Pulse Resp B/P (MAP) Pulse Ox O2 Delivery O2 Flow Rate FiO2 01/03/18 08:42 Room Air 01/03/18 05:59 98.2 96 18 107/63 (78) 98 Room Air 01/02/18 21:00 Room Air I & O 01/03/18 07:00 Intake Total 1700 ml Balance 1700 ml Capillary Refill : General Appearance: No Apparent Distress Respiratory: Lungs Clear Cardiovascular: Regular Rate, Rhythm Neurologic/Psychiatric: Alert, Disoriented (short term memory issues ongoing) Assessment/Plan Assessment/Plan Assess & Plan/Chief Complaint 1. Fall with Head Trauma resulting in SAH and Temporal Bone fracture--healing but ongoing memory issues and dizziness, will need 24hr care for discharge but refusing this as well as AL due to cost, DC tomorrow with home health nursing and PT/OT 2. UTI--resolved 3. Unsteady Gait with dizziness--PT/OT, added meclizine low dose 4. Hyperglycemia--accuchecks BID Clinical Quality Measures DVT/VTE Risk/Contraindication: Risk Factor Score Per Nursin RFS Level Per Nursing on Admit: 2=Moderate NICANOR ESTRELLA DO Jan 03, 2018 6:28 pm
[2018-01-04 06:00] VITALS: BP 133/78
--- NOTE | 2018-01-04 08:09 | Therapy Team Discharge Summary ---
Therapy Discharge Summary Discharge Recommendations Date of Discharge Therapy D/C Recommendations: Physical Therapy Home Care Physical Therapy Patient came to rehab following a subarachnoid hemorrhage. Upon evaluation patient performed bed mobility and supine <-> sit with mod I, sit <-> stand and transfers with CGA, car transfer CGA, ambulated 150' with a rolling walker with CGA (including 50' with at least 2 turns of 90 degrees and 10' over an uneven surface), and went up and down 1 step using a rolling walker with CGA. Patient has been performing bed mobility and transfer training, balance and endurance training, functional strengthening, stair training, gait training, and education. 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 Now, patient is mod I with bed mobility and transfers, ambulates 400' with a rolling walker with mod I (including 50' with at least 2 turns of 90 degrees and 10' over an uneven surface), car transfer mod I, and she can go up and down 12 steps using 2 handrails with mod I. Patient is discharging from this facility today and will be discharged from PT at this time. Occupational Therapy Decreased Activ Tolerance, Decreased Safety Aware, Impaired Cognition, Impaired Funct Balance, Impaired I ADL's, Impaired Self-Care Skills PT Electromedical Service Engineer Goals Electromedical Service Engineer Goals PT Electromedical Service Engineer Goals Time Frame: Jan 12, 2018 Transfers (B,C,W/C) (FIM): 6 Roll Left to Right (QC): 6 Sit to Lying (QC): 6 Lying-Sitting on Side/Bed(QC): 6 Sit to Stand (QC): 6 Chair/Pdn-mf-Qgfhh Xfer(QC): 6 Car Transfer (QC): 6 Gait (FIM): 6 Distance: 300' Walk 10 feet (QC): 6 Walk 10ft-Uneven Surface(QC): 6 Walk 50ft with 2 Turns (QC): 6 Walk 150 ft (QC): 6 Gait Level of Assist: 6 Gait Assistive Device: FWW Stairs (FIM): 5 # of Steps: 12 1 Step (curb) (QC): 4 4 Steps (QC): 4 12 Steps (QC): 4 Stairs Level Of Assist: 5 OT Electromedical Service Engineer Goals Electromedical Service Engineer Goals Time Frame: Jan 06, 2018 Eating (FIM): 7 (met) Eating (QC): 6 (met) Oral Hygiene (QC): 6 (met) Grooming(FIM): 6 (met) Bathing(FIM): 5 (met) Shower/Bathe Self (QC): 5 (met) Upper Body Dressing(FIM): 6 (met) Upper Body Dressing (QC): 6 (met) Lower Body Dressing(FIM): 6 (met) Lower Body Dressing (QC): 6 (met) On/Off Footwear (QC): 6 (met) Toileting(FIM): 6 (met) Toileting Hygiene (QC): 6 (met) Transfers (B,C,W/C) (FIM): 6 (met) Toilet/Commode Transfer(FIM): 6 (met) Toilet/Commode Transfer (QC): 6 (met) Shower Transfer(FIM): 5 (met) Social Interaction(FIM): 7 Problem Solving(FIM): 7 Memory(FIM): 7 Additional Goals: 1-Demonstrate ADL Tasks, 2-Verbalize Understanding, 3- ImproveStrength/Morgan 1=Demonstrate adherence to instructed precautions during ADL tasks. 2=Patient will verbalize/demonstrate understanding of assistive devices/ modifications for ADL. 3=Patient will improve strength/tolerance for activity to enable patient to perform ADL's. Speech Electromedical Service Engineer Goals Electromedical Service Engineer Goals Patient will increase memory and problem solving skills for safety and independence for returning to home. Social Interaction: 7 Problem Solvin Memory: 7 RAMAKRISHNA ARROYO PT Jan 04, 2018 08:09
[2018-01-04] MEDS: MECLIZINE 25 MG (ANTIVERT) TAB PO SCH (08:15)
[2018-01-04 09:00] VITALS: BP 133/78
--- NOTE | 2018-01-04 10:54 | PM & R (SOAP) Progress Note ---
Subjective This was a face to face visit with the patient. Date Seen by Provider: Jan 04, 2018 Time Seen by Provider: 07:40 Subjective/Events-last exam Patient was seen in her room this AM All set for discharge Date Identified: Jan 04, 2018 Time Identified: 07:45 Medication Intervention: Discharge meds reviewed Objective Physician Exam Last Set of Vital Signs Vital Signs Date Time Temp Pulse Resp B/P (MAP) Pulse Ox O2 Delivery O2 Flow Rate FiO2 01/04/18 09:15 Room Air 01/04/18 06:00 98.2 86 16 133/78 (96) 98 Capillary Refill : I&O Intake and Output 01/04/18 00:00 Intake Total 1600 ml Balance 1600 ml Intake Oral 1600 ml # Voids 9 # Bowel Movements 2 General: Alert, Oriented X3, Cooperative HEENT: PERRLA, EOMI, Mucous Memb Moist/Starks, Other ( abrasion scalp healing well Dried blood in RT ear canal) Neck: Supple, No JVD Lungs: Clear to Auscultation Heart: Regular Rate Abdomen: Normal Bowel Sounds, Soft, No Tenderness Extremities: No Edema Neuro: Strength at 5/5 X4 Ext, Sensation Intact, Other (Impaired balance and c/ o dizziness) Psych/Mental Status: Mental Status NL Assessment/Plan Assessment and Plan Home today with HHC and spouse Patient to have home organizer to help out as well F/U with PCP and ENT See orders Co-Morbidities that are continuing to impact the rehab process: (include details ) JAGJIT YOON MD Jan 04, 2018 10:54
--- NOTE | 2018-01-04 15:35 | Therapy Team Discharge Summary ---
Therapy Discharge Summary Discharge Recommendations Date of Discharge Jan 04, 2018 at 10:50 Therapy D/C Recommendations: Occupational Therapy Home Care, Physical Therapy Home Care Occupational Therapy Pt was seen for skilled OT to increase her independence in basic self care following a fall, recovery complicated by dizziness. On admission she was independent with eating, supervision with toileting and toilet transfers, needed CGA/min assist grooming, bathing and shower transfer and mod assist dressing. By discharge she was independent with eating and modified independent with all other basic ADLs, with mild safety concerns. Home health OT recommended. See tx plan for goals met. DC OT Decreased Activ Tolerance, Decreased Safety Aware, Impaired Cognition, Impaired Funct Balance, Impaired I ADL's, Impaired Self-Care Skills PT Skilled Nursing Goals Rn Placement Goals PT Rn Placement Goals Time Frame: Jan 12, 2018 Transfers (B,C,W/C) (FIM): 6 Roll Left to Right (QC): 6 Sit to Lying (QC): 6 Lying-Sitting on Side/Bed(QC): 6 Sit to Stand (QC): 6 Chair/Eml-ld-Atwxj Xfer(QC): 6 Car Transfer (QC): 6 Gait (FIM): 6 Distance: 300' Walk 10 feet (QC): 6 Walk 10ft-Uneven Surface(QC): 6 Walk 50ft with 2 Turns (QC): 6 Walk 150 ft (QC): 6 Gait Level of Assist: 6 Gait Assistive Device: FWW Stairs (FIM): 5 # of Steps: 12 1 Step (curb) (QC): 4 4 Steps (QC): 4 12 Steps (QC): 4 Stairs Level Of Assist: 5 OT Rn Placement Goals Skilled Nursing Goals Time Frame: Jan 06, 2018 Eating (FIM): 7 (met) Eating (QC): 6 (met) Oral Hygiene (QC): 6 (met) Grooming(FIM): 6 (met) Bathing(FIM): 5 (met) Shower/Bathe Self (QC): 5 (met) Upper Body Dressing(FIM): 6 (met) Upper Body Dressing (QC): 6 (met) Lower Body Dressing(FIM): 6 (met) Lower Body Dressing (QC): 6 (met) On/Off Footwear (QC): 6 (met) Toileting(FIM): 6 (met) Toileting Hygiene (QC): 6 (met) Transfers (B,C,W/C) (FIM): 6 (met) Toilet/Commode Transfer(FIM): 6 (met) Toilet/Commode Transfer (QC): 6 (met) Shower Transfer(FIM): 5 (met) Social Interaction(FIM): 7 Problem Solving(FIM): 7 Memory(FIM): 7 Additional Goals: 1-Demonstrate ADL Tasks, 2-Verbalize Understanding, 3- ImproveStrength/Morgan 1=Demonstrate adherence to instructed precautions during ADL tasks. 2=Patient will verbalize/demonstrate understanding of assistive devices/ modifications for ADL. 3=Patient will improve strength/tolerance for activity to enable patient to perform ADL's. Speech Skilled Nursing Goals Rn Placement Goals Patient will increase memory and problem solving skills for safety and independence for returning to home. Social Interaction: 7 Problem Solvin Memory: 7 TARA LYON OT Jan 04, 2018 15:35
== END 2018-01-04 10:50 | disposition home health service (06) | DRG 949 ==
PROVIDERS: ADMIT Physical Medicine & Rehabilitation; ATTEND Physical Medicine & Rehabilitation
DX: S06.6X9D Traumatic subarachnoid hemorrhage with loss of consciousness of unspecified duration, subsequent encounter (principal); S02.19XD Other fracture of base of skull, subsequent encounter for fracture with routine healing; R26.81 Unsteadiness on feet; R42 Dizziness and giddiness; H91.91 Unspecified hearing loss, right ear; S00.01XD Abrasion of scalp, subsequent encounter; N39.0 Urinary tract infection, site not specified; K21.9 Gastro-esophageal reflux disease without esophagitis; R73.9 Hyperglycemia, unspecified; W19.XXXD Unspecified fall, subsequent encounter; Y92.014 Private driveway to single-family (private) house as the place of occurrence of the external cause
CPT/HCPCS: 36415; 80053; 82962; 85025

== ENCOUNTER → 2018-06-13 | Outpatient (CLI) | payer MEDICARE ==
[~2018-06-13] MED LIST changes: +MECL-106 PO; +OFL.3OP5 OU
[2018-06-13 08:24] LABS: ALANINE AMINOTRANSFERASE 17 U/L (0-55); ALBUMIN 4.2 GM/DL (3.2-4.5); ALKALINE PHOSPHATASE 77 U/L (40-136); BILIRUBIN,TOTAL 0.5 MG/DL (0.1-1.0); BUN/CREATININE RATIO 18; CALCIUM 9.7 MG/DL (8.5-10.1); CARBON DIOXIDE 26 MMOL/L (21-32); CHLORIDE 108 MMOL/L (98-107); CHOLESTEROL 212 MG/DL (< 200); CREATININE SERUM 0.82 MG/DL (0.60-1.30); GFR ESTIMATED > 60; GLUCOSE 111 MG/DL (70-105); HDL CHOLESTEROL 36 MG/DL (40-60); POTASSIUM 3.8 MMOL/L (3.6-5.0); SODIUM 143 MMOL/L (135-145); TOTAL PROTEIN 7.9 GM/DL (6.4-8.2); TRIGLYCERIDES 126 MG/DL (<150); VLDL CHOLESTEROL 25 MG/DL (5-40)
== END ==
LOC: LAB 07:50
PROVIDERS: ATTEND Internal Medicine Cardiovascular Disease
DX: I10 Essential (primary) hypertension (principal); R42 Dizziness and giddiness; R26.81 Unsteadiness on feet
CPT/HCPCS: 36415; 80053; 80061; 84443

== ENCOUNTER → 2018-06-21 | Outpatient (CLI) | payer MEDICARE | LOC: CARD 14:00 | PROVIDERS: ATTEND Internal Medicine Cardiovascular Disease | DX: I10 Essential (primary) hypertension (principal); R42 Dizziness and giddiness; R26.81 Unsteadiness on feet; I07.1 Rheumatic tricuspid insufficiency | CPT/HCPCS: 93306 ==

== ENCOUNTER 2018-10-13 14:22 | Inpatient (IN) | payer MEDICARE ==
[~2018-10-13] VITALS: Ht 152.4 cm; Wt 53.6 kg
[2018-10-13 15:05] LABS: BASOPHILS % (AUTO) 0 % (0-10); EOSINOPHILS # (AUTO) 0.1 10^3/uL (0.0-0.3); EOSINOPHILS % (AUTO) 1 % (0-10); HEMATOCRIT 39 % (35-52); LYMPHOCYTES # (AUTO) 1.5 X 10^3 (1.0-4.0); LYMPHOCYTES % (AUTO) 22 % (12-44); MEAN CORPUSCULAR HEMOGLOBIN 30 PG (25-34); MEAN CORPUSCULAR HGB CONC 33 G/DL (32-36); MEAN CORPUSCULAR VOLUME 89 FL (80-99); MONOCYTES # (AUTO) 0.4 X 10^3 (0.0-1.0); MONOCYTES % (AUTO) 5 % (0-12); NEUTROPHILS # (AUTO) 5.1 X 10^3 (1.8-7.8); NEUTROPHILS % (AUTO) 72 % (42-75); PLATELET COUNT 270 10^3/uL (130-400); RED CELL DISTRIBUTION WIDTH 12.7 % (10.0-14.5); WHITE BLOOD COUNT 7.1 10^3/uL (4.3-11.0)
[2018-10-13] MEDS ORDERED: NS 100 ML (IVPB) BAG IV ONE (15:30)
[2018-10-13] MEDS ORDERED: HOLD METFORMIN - RECEIVED CONTRAST 20 ML VIAL IV SCH (15:30)
[2018-10-13] MEDS ORDERED: IOHEXOL 350 MG/ML 100 ML (OMNIPAQUE 350) VIAL IV ONE (15:30)
--- NOTE | 2018-10-13 15:39 | Diagnostic Imaging Report ---
EXAMINATION: Supine chest at 03:16 p.m. INDICATION: Multiple falls. FINDINGS: There are no prior studies available for comparison. The heart size is within normal limits. The lungs are clear. There is no evidence for failure, pneumonia, or for a pleural effusion. There is no sign of a pulmonary contusion or pneumothorax although small pneumothorax could be present yet undetected on a supine film such as this. The mediastinum is not widened. The osseous structures are intact. IMPRESSION: There is no evidence for an acute cardiopulmonary abnormality. Dictated by: Dictated on workstation # [id number]
--- NOTE | 2018-10-13 15:42 | Diagnostic Imaging Report ---
CLINICAL HISTORY: Multiple falls over the past week. Right groin pain. COMPARISON: None. TECHNIQUE: Three views of the pelvis and right hip. FINDINGS: There is an acute fracture involving the proximal right femoral neck with likely impaction into the femoral head. There is preserved articulation of the humeral head and acetabulum in the right hip. No acute fracture seen in the bony pelvis. The left hip is unremarkable. No acute abnormality is seen in the soft tissues. IMPRESSION: Acute impacted fracture involving the proximal right femur. Dictated by: Dictated on workstation # [id number]
--- NOTE | 2018-10-13 16:13 | Diagnostic Imaging Report ---
PROCEDURE: CT chest, abdomen, and pelvis with contrast. TECHNIQUE: Multiple contiguous axial images were obtained through the chest, abdomen, and pelvis after the administration of intravenous contrast. Auto Exposure Controls were utilized during the CT exam to meet ALARA standards for radiation dose reduction. INDICATION: Fall. Right pelvis and hip pain. COMPARISON: None. CT chest: The heart size is within normal limits. No pericardial effusion is present. There is no mediastinal, hilar, or axillary lymphadenopathy. The lungs demonstrate no pulmonary nodules or masses. Deepened atelectasis is seen in the lung bases bilaterally. There are no focal areas of consolidation. No pneumothoraces are present. No central endobronchial obstructing lesions are identified. There are no pleural effusions. The osseous structures demonstrate degenerative changes without focal lytic or blastic lesions. CT abdomen and pelvis: Generalized decreased attenuation is seen in the liver, consistent with hepatic steatosis. No focal hepatic lesions are seen. The spleen, pancreas, adrenal glands, and kidneys have a normal appearance. There is no pathologically enlarged mesenteric or retroperitoneal adenopathy. The bowel loops are nondilated. The appendix is visualized in the right lower quadrant and has a normal appearance. There is no free fluid or free air. Impaction fracture is seen involving the proximal right femur. No significant displacement is seen. No evidence of dislocation of the right femoroacetabular joint. A small amount of atherosclerotic plaque is seen in the aorta and iliac arteries. Ureters and bladder are grossly normal. There is no free air, loculated collection, or adenopathy in the pelvis. IMPRESSION: 1. Impaction fracture involving the proximal right femur without evidence of dislocation of the right femoroacetabular joint. 2. Hepatic steatosis. No focal hepatic lesions. Dictated by: Dictated on workstation # [id number]
[2018-10-13 16:33] LABS: BILIRUBIN,URINE NEGATIVE (NEGATIVE); CLARITY,URINE CLEAR; COLOR,URINE YELLOW; GLUCOSE, URINE (UA) NEGATIVE (NEGATIVE); KETONES,URINE NEGATIVE (NEGATIVE); LEUKOCYTE ESTERASE ,URINE NEGATIVE (NEGATIVE); NITRITE,URINE NEGATIVE (NEGATIVE); PH,URINE 5 (5-9); PROTEIN,URINE 2+ (NEGATIVE); UROBILINOGEN,URINE NORMAL (NORMAL)
[2018-10-13 16:43] LABS: BACTERIA,URINE NEGATIVE /HPF; RBC,URINE RARE /HPF
[2018-10-13] MEDS ORDERED: fentaNYL INJECTION 100 MCG/2 ML AMP IVP ONE (16:45)
--- NOTE | 2018-10-13 16:47 | Diagnostic Imaging Report ---
PROCEDURE: CT head, face, and cervical spine without contrast. TECHNIQUE: Multiple contiguous axial images were obtained through the head, neck, and facial bones without the use of intravenous contrast. Sagittal and coronal reformations through the cervical spine and facial bones were also performed. Auto Exposure Controls were utilized during the CT exam to meet ALARA standards for radiation dose reduction. INDICATION: Fall. Hit face. COMPARISON: 12/10/2017. FINDINGS: CT head: The ventricles and cortical sulci are age-appropriate. There is no midline shift or mass-effect. No acute intracranial hemorrhage is seen. There is no CT evidence of acute territorial ischemia. No focal masses or collections are present. The calvarium is intact. CT face: No acute facial fractures. The mandible, zygomatic arches, and pterygoid plates are intact. The bilateral TMJ demonstrate normal articulation. The nasal bones and bony nasal septum are unremarkable without fracture. The bony nasal septum is midline. The paranasal sinuses and mastoid air cells are well pneumatized. The globes and orbits are symmetric and unremarkable. CT cervical spine: No acute fracture or dislocation is seen in the cervical spine. No focal osseous lesions. Vertebral body heights are well-maintained. The craniocervical junction is well-maintained. Mild degenerative changes are seen in the cervical spine with disc osteophyte complexes and uncovertebral arthropathy. Soft tissues of the neck are unremarkable. IMPRESSION: 1. No hemorrhage or focal intra-axial mass. No CT evidence of large acute territorial ischemia. 2. No acute fracture or dislocation in the cervical spine. 3. No acute facial fractures. Dictated by: Dictated on workstation # [id number]
--- NOTE | 2018-10-13 16:52 | ED Fall/Injury ---
General Chief Complaint: Trauma-Non Activation Stated Complaint: FALL,BACK PAIN Source: patient (SPEAKS LIMITED SERBIAN, BUT UNDERSTANDS SERBIAN. PT GIVES SOME CONFLICTING/INCONSISTENT INFORMATION AT TIMES. ), old records History of Present Illness Date Seen by Provider: Oct 13, 2018 Time Seen by Provider: 14:38 Initial Comments PT ARRIVES VIA POV--DROVE HERE, WITH HER WHO HAS DEMENTIA PT STATES SHE FELL "LAST WEEK" BUT CANNOT RECALL EXACT DAY THAT IT HAPPENED STATES SHE WAS TRYING TO HOLD OR OPEN A DOOR, BUT "WAS TOO HEAVY" AND SHE FELL BACKWARD ONTO CONCRETE GARAGE FLOOR. STATES SHE HAD IMMEDIATE PAIN IN RIGHT GROIN AREA, AND HAS CONTINUED TO HAVE PAIN SINCE THEN STATES SHE DID NOT HIT HER HEAD OR PASS OUT. STATES "I PROTECT MY HEAD" DENIES NECK OR BACK PAIN DENIES ARM PAIN DENIES CHEST OR ABDOMINAL PAIN DENIES PARESTHESIAS OR MOTOR DEFICITS DENIES HEADACHE STATES SHE HAS DIZZINESS ALL THE TIME--TAKES MECLIZINE, AND TOOK IT THIS AM NO VISION CHANGES STATES SHE HAS NOT TAKEN ANYTHING FOR PAIN DENIES PRIOR INJURY TO THIS HIP BEFORE HAS NOT SOUGHT CARE UNTIL TODAY, SYMPTOMS NO DIFFERENT TODAY, JUST STILL HAVING PAIN WHEN SHE TRIES TO WALK PT DID FALL 12/2017, EXACT SAME SCENARIO--HAD SKULL/TEMPORAL BONE FX WITH INTRACRANIAL BLEED/SUBARACHNOID HEMORRHAGE--NO SURGERY, SENT TO [place] PT STATES " I FALL EVERY DAY" PT IS WELCOME WAGON HOSTESS FOR HER SPOUSE, 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 PCP: DR. ESTRELLA Allergies and Home Medications Allergies Coded Allergies: No Known Drug Allergies (Verified , 04/29/15) Home Medications Meclizine HCl 25 Mg Tablet, 25 MG PO TID PRN for DIZZINESS, (Reported) Metoprolol Succinate 50 Mg Tab.er.24h, 50 MG PO DAILY, (Reported) Rosuvastatin Calcium 10 Mg Tablet, 10 MG PO HS, (Reported) Patient Home Medication List Home Medication List Reviewed: Yes Review of Systems Review of Systems Constitutional: no symptoms reported Eyes: No Symptoms Reported; Denies Vision Changes Ears, Nose, Mouth, Throat: no symptoms reported Respiratory: no symptoms reported; No short of breath Cardiovascular: no symptoms reported; No chest pain Gastrointestinal: no symptoms reported; No abdominal pain, No nausea, No vomiting Genitourinary: no symptoms reported Musculoskeletal: see HPI; No back pain, No neck pain Skin: no symptoms reported Psychiatric/Neurological: No Symptoms Reported; Denies Headache, Denies Numbness, Denies Paresthesia, Denies Tingling, Denies Weakness Past Qrtmpcs-Lgayxm-Pcjtvj Hx Patient Social History Alcohol Use: Denies Use Recreational Drug Use: No Smoking Status: Never a Smoker 2nd Hand Smoke Exposure: No Recent Foreign Travel: No Contact w/Someone Who Travel: No Recent Hopitalizations: Yes (SUBARACHNOID HEMORRHAGE) Physical Abuse: No Sexual Abuse: No Immunizations Up To Date Tetanus Booster (TDap): Unknown Seasonal Allergies Seasonal Allergies: No Past Medical History Surgeries: Yes (EGD/COLONOSCOPY 04/2015) Respiratory: No Cardiac: Yes High Cholesterol, Hypertension Neurological: Yes (12/10/2017--HAD SKULL/ TEMPORAL BONE FX WITH INTRACRANIAL BLEED/SUB ARACHNOID HEMORRHAGE, FROM A FALL--NO SURGERY) Vertigo Genitourinary: No Gastrointestinal: Yes (ALL NOTED ON EGD/COLONOSCOPY) Gastroesophageal Reflux, Diverticulosis, Hemorrhoids, Hiatal Hernia Musculoskeletal: Yes (12/10/17--SKULL/ TEMPORAL BONE FX; FREQUENT FALLS--STATES "I FALL EVERY DAY" ) Fractures Endocrine: No HEENT: No Cancer: No Psychosocial: No Integumentary: No Blood Disorders: No Family Medical History Patient reports no known family medical history. Physical Exam Vital Signs Vital Signs - First Documented 10/13/18 16:29 Temp 37.26486 Pulse 84 Resp 21 B/P (MAP) 140/76 (97) Pulse Ox 95 O2 Delivery Room Air Capillary Refill : Height, Weight, BMI Height: 5'0.00" Weight: 113lbs. 3.2oz. 51.445856ot; 21.5 BMI Method:Estimated General Appearance: WD/WN, no apparent distress HEENT: PERRL/EOMI, normal ENT inspection Neck: non-tender, full range of motion, supple, normal inspection Cardiovascular: normal peripheral pulses, regular rate, rhythm, no edema, no JVD, no murmur Respiratory: chest non-tender, normal breath sounds, no respiratory distress, no accessory muscle use, other (VERY LARGE OLD BRUISE TO RIGHT BREAST/CHEST. NO CREPITANCE OR SUB Q AIR. ) Peripheral Pulses: 2+ Dorsalis Pedis (R), 2+ Left Dors-Pedis (L), 2+ Radial Pulses (R), 2+ Radial Pulses (L) Gastrointestinal: normal bowel sounds, non tender, soft Back: normal inspection, no CVA tenderness, no vertebral tenderness Extremities: no pedal edema, no calf tenderness, normal capillary refill, other (TENDERNESS TO RIGHT HIP/GROIN AREA. HAS A LARGE, OLD BRUISE TO RIGHT LATERAL HIP AREA. 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 ) [place] Coma Score Best Eye Response: (4) Open Spontaneously Best Verbal Response: (5) Oriented Best Motor Response: (6) Obeys Commands Fermin Total: 15 Progress/Results/Core Measures Results/Orders Lab Results Laboratory Tests Test 10/13/18 14:55 10/13/18 16:14 Range/Units White Blood Count 7.1 4.3-11.0 10^3/uL Red Blood Count 4.39 4.35-5.85 10^6/uL Hemoglobin 13.0 11.5-16.0 G/DL Hematocrit 39 35-52 % Mean Corpuscular Volume 89 80-99 FL Mean Corpuscular Hemoglobin 30 25-34 PG Mean Corpuscular Hemoglobin Concent 33 32-36 G/DL Red Cell Distribution Width 12.7 10.0-14.5 % Platelet Count 270 130-400 10^3/uL Mean Platelet Volume 11.0 H 7.4-10.4 FL Neutrophils (%) (Auto) 72 42-75 % Lymphocytes (%) (Auto) 22 12-44 % Monocytes (%) (Auto) 5 0-12 % Eosinophils (%) (Auto) 1 0-10 % Basophils (%) (Auto) 0 0-10 % Neutrophils # (Auto) 5.1 1.8-7.8 X 10^3 Lymphocytes # (Auto) 1.5 1.0-4.0 X 10^3 Monocytes # (Auto) 0.4 0.0-1.0 X 10^3 Eosinophils # (Auto) 0.1 0.0-0.3 10^3/uL Basophils # (Auto) 0.0 0.0-0.1 10^3/uL Prothrombin Time 13.0 12.2-14.7 SEC INR Comment 1.0 0.8-1.4 Activated Partial Thromboplast Time 38 H 24-35 SEC Urine Color YELLOW Urine Clarity CLEAR Urine pH 5 5-9 Urine Specific [place] 1.015 L 1.016-1.022 Urine Protein 2+ H NEGATIVE Urine Glucose (UA) NEGATIVE NEGATIVE Urine Ketones NEGATIVE NEGATIVE Urine Nitrite NEGATIVE NEGATIVE Urine Bilirubin NEGATIVE NEGATIVE Urine Urobilinogen NORMAL NORMAL MG/DL Urine Leukocyte Esterase NEGATIVE NEGATIVE Urine RBC (Auto) 2+ H NEGATIVE Urine RBC RARE /HPF Urine WBC NONE /HPF Urine Squamous Epithelial Cells NONE /HPF Urine Crystals NONE /LPF Urine Bacteria NEGATIVE /HPF Urine Casts NONE /LPF Urine Mucus NEGATIVE /LPF Urine Culture Indicated NO My Orders Orders - LLUVIA RAMIREZ DO Ed Iv/Invasive Line Start (10/13/18 14:46) Monitor-Rhythm Ecg Trace Only (10/13/18 14:46) Chest 1 View, Ap/Pa Only (10/13/18 14:46) Pelvis With Right Hip 2-3views (10/13/18 14:46) Cbc With Automated Diff (10/13/18 14:46) Comprehensive Metabolic Panel (10/13/18 14:46) Protime With Inr (10/13/18 14:46) Partial Thromboplastin Time (10/13/18 14:46) Ua Culture If Indicated (10/13/18 14:46) Ct Head/Face/Cervical Wo (10/13/18 15:10) Ct Chest/Abdomen/Pelvis W (10/13/18 15:10) Iohexol Injection (Omnipaque 350 Mg/Ml 1 (10/13/18 15:30) Received Contrast (Hold Metformin- Contr (10/13/18 15:30) Ns (Ivpb) (Sodium Chloride 0.9% Ivpb Bag (10/13/18 15:30) Catheter(Urinary) Insert & Ass 03,15 (10/13/18 16:06) Fentanyl Injection (Sublimaze Injection (10/13/18 16:45) Vital Signs/I&O 10/13/18 16:29 Temp 37.35167 Pulse 84 Resp 21 B/P (MAP) 140/76 (97) Pulse Ox 95 O2 Delivery Room Air Progress Progress Note : Progress Note NO DETERIORATION IN PT'S CONDITION DURING ER STAY PT DECLINES PAIN MEDICATIONS Diagnostic Imaging Comments XRAYS PELVIS AND RIGHT HIP--IMPACTED FRACTURE OF RIGHT FEMORAL NECK CXR--NO ACUTE PROCESS PER RADIOLOGIST REPORTS AT [address] HEAD/MAXILLOFACIAL/CERVICAL SPINE--NO ACUTE PROCESS CT CHEST/ABDOMEN/PELVIS--NO ACUTE PROCESS PER RADIOLOGIST REPORTS AT 1654 Reviewed: Reviewed by Me Departure Communication (Admissions) 165--SPOKE WITH DR. Tremayne HERNANDEZ, ORTHOPEDIC SURGEON, ACCEPTS PT FOR ADMIT Impression Primary Impression: Closed fracture of neck of right femur Additional Impressions: Frequent falls HTN (hypertension) Chronic vertigo Disposition: ADMITTED INPATIENT Condition: Stable Admissions Decision to Admit Reason: Admit from ER (Trauma) Decision to Admit/Date: Oct 13, 2018 Time/Decision to Admit Time: 16:55 Departure-Patient Inst. Referrals: NICANOR ESTRELLA DO (PCP/Family) Primary Care Physician LLUVIA RAMIREZ DO Oct 13, 2018 16:51
--- NOTE | 2018-10-13 17:25 | NUR ---
DARRICK GEORGE admitted to room 419-1, with an admitting diagnosis of RIGHT HIP FX, FREQUENT FALL, CURRENT VERTIGO, on 10/13/18 from ED via STRETCHER, accompanied by STAFF AND . DARRICK GEORGE introduced to surroundings, call light, bed controls, phone, TV, temperature control, lights, meal times, smoking policy, visitor policy, side rail policy, bathrooms and showers. Patient Rights given to patient in the handbook. DARRICK GEORGE verbalizes understanding that [facility] is not responsible for the loss or damage to any personal effects or valuables that are kept in the patients possession during their hospitalization. DARRICK GEORGE verbalizes understanding of Interdisciplinary Patient Education. Patient and family were informed about the Rapid Response Team and its purpose.
[2018-10-13 17:30] LABS: ALANINE AMINOTRANSFERASE 21 U/L (0-55); ALBUMIN 3.9 GM/DL (3.2-4.5); ALKALINE PHOSPHATASE 93 U/L (40-136); BILIRUBIN,TOTAL 0.3 MG/DL (0.1-1.0); BUN/CREATININE RATIO 24; CALCIUM 8.8 MG/DL (8.5-10.1); CARBON DIOXIDE 23 MMOL/L (21-32); CHLORIDE 110 MMOL/L (98-107); CREATININE SERUM 0.76 MG/DL (0.60-1.30); GFR ESTIMATED > 60; GLUCOSE 107 MG/DL (70-105); SODIUM 142 MMOL/L (135-145); TOTAL PROTEIN 7.6 GM/DL (6.4-8.2)
[2018-10-13] MEDS ORDERED: fentaNYL INJECTION 100 MCG/2 ML AMP IV PRN (17:45)
[2018-10-13 17:56] VITALS: BP 136/78
[2018-10-13 17:57] VITALS: BP 152/83
--- NOTE | 2018-10-13 18:30 | NUR ---
Omaira Troy called the police to find pt's neighbor to see if there was anyone that could help with pt's . Pt's neighbor returned call, but stated they are not able to help in any way. Neighbor unable to provide any further information.
[2018-10-13] MEDS: D5 1/2 NS W/KCL 20 MEQ/L 1,000 ML IV SCH (19:11)
[2018-10-13 20:00] VITALS: BP 141/76
[2018-10-13 23:33] VITALS: BP 123/75
[2018-10-14] VITALS (13 sets, daily range): BP systolic 115–160; BP diastolic 66–82
[2018-10-14] MEDS: D5 1/2 NS W/KCL 20 MEQ/L 1,000 ML IV SCH ×4 (01:01→17:40)
[2018-10-14 07:11] LABS: BASOPHILS % (AUTO) 0 % (0-10); EOSINOPHILS # (AUTO) 0.1 10^3/uL (0.0-0.3); EOSINOPHILS % (AUTO) 2 % (0-10); HEMATOCRIT 37 % (35-52); HEMOGLOBIN 11.9 G/DL (11.5-16.0); LYMPHOCYTES # (AUTO) 1.8 X 10^3 (1.0-4.0); LYMPHOCYTES % (AUTO) 26 % (12-44); MEAN CORPUSCULAR HEMOGLOBIN 29 PG (25-34); MEAN CORPUSCULAR HGB CONC 32 G/DL (32-36); MEAN CORPUSCULAR VOLUME 90 FL (80-99); MEAN PLATELET VOLUME 11.1 FL (7.4-10.4); MONOCYTES # (AUTO) 0.6 X 10^3 (0.0-1.0); MONOCYTES % (AUTO) 8 % (0-12); NEUTROPHILS # (AUTO) 4.4 X 10^3 (1.8-7.8); NEUTROPHILS % (AUTO) 63 % (42-75); PLATELET COUNT 249 10^3/uL (130-400)
--- NOTE | 2018-10-14 07:29 | Consultation - Hospitalist ---
HPI History of Present Illness: HPI/Chief Complaint The patient is a 73-year-old white female who fell sometime last week in her garage she is apparently struggling with a car door. She noted some right upper thigh pain but was able to get up unaided. 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 She had progressive pain with weightbearing of the right thigh and drove herself and her to the emergency room where was noted that she had an impacted I believe proximal femoral fracture. Dr. Reynolds admitted the patient and I'm seeing her for Dr. Sweeney her primary care provider. She denies chest pain or shortness of breath and I personally know that her fitness level is likely greater than age-matched peers as I see her working out the weight room not only on the exercise bike's but she also does resistance training as well. She has no past known cardiovascular history. She does have history of dizziness and had a similar fall in her garage last year that resulted in a subarachnoid hemorrhage did not require any surgical intervention. She had a stay on rehabilitation and felt that she had recovered completely. She felt that she been in her usual state of health prior to her fall voicing no complaints other than right upper thigh pain with weightbearing. Date Seen 10/14/18 Attending Physician Jamey Reynolds Jacqueline S DO Referring Physician Date of Admission Oct 13, 2018 at 17:00 Home Medications & Allergies Home Medications Reviewed patient Home Medication Reconciliation performed by pharmacy medication reconciliations medical equipment repair technician and/or nursing. Patients Allergies have been reviewed. Allergies Allergies Coded Allergies No Known Drug Allergies (Verified04/29/15) Past Esfbzjj-Xeilky-Shusbt Hx Past Med/Social Hx: Reviewed and Corrections made Patient Social History Alcohol Use: Denies Use Recreational Drug Use: No Smoking Status: Never a Smoker 2nd Hand Smoke Exposure: No Physical Abuse Screen: No Sexual Abuse: No Recent Foreign Travel: No Contact w/other who traveled: No Recent Hopitalizations: Yes (SUBARACHNOID HEMORRHAGE) Recent Infectious Disease Expo: No Immunizations Up To Date Tetanus Booster (TDap): Unknown Seasonal Allergies Seasonal Allergies: No Past Medical History Gastrointestinal: Gastroesophageal Reflux, Hemorrhoids Musculoskeletal: Fractures Psychosocial: Anxiety History of Blood Disorders: No Family History Patient reports no known family medical history. Review of Systems Constitutional: see HPI Physical Exam Physical Exam Vital Signs Vital Signs - First Documented 10/13/18 16:29 Temp 99.3 Pulse 84 Resp 21 B/P (MAP) 140/76 (97) Pulse Ox 95 O2 Delivery Room Air Capillary Refill : Less Than 3 SecondsLess Than 3 Seconds Height, Weight, BMI Height: 5'0.00" Weight: 118lbs. 1.0oz. 53.288385wu; 23.1 BMI Method:Stated General Appearance: No Apparent Distress, WD/WN Respiratory: Chest Non Tender, Lungs Clear, Normal Breath Sounds, No Accessory Muscle Use, No Respiratory Distress Cardiovascular: Regular Rate, Rhythm, No Edema, No Gallop, No JVD, No Murmur, Normal Peripheral Pulses Gastrointestinal: Normal Bowel Sounds, No Organomegaly, No Pulsatile Mass, Non Tender, Soft Extremity: Other (Left extremity unremarkable normal range of motion. Right upper thigh swelling mild dorsalis pedis pulses 2+ no lower extremity edema noted no abnormality noted in the leg orientation. No purpura or ecchymosis noted.) Results Results/Procedures Labs Laboratory Tests 10/13/18 14:55 10/13/18 17:07 10/14/18 06:27 Patient resulted labs reviewed. Assessment/Plan Assessment and Plan Assess & Plan/Chief Complaint 1. Impacted proximal femoral shaft fracture as her fall was not from height most likely pathologic due to underlying osteoporosis. The patient has no med ical contraindications to proceeding with stabilization per Dr. Reynolds. Clinical Quality Measures DVT/VTE Risk/Contraindication: Risk Factor Score Per Nursin RFS Level Per Nursing on Admit: 4+=Very High CE LAWRENCE MD Oct 14, 2018 07:29
[2018-10-14 07:31] LABS: ALANINE AMINOTRANSFERASE 18 U/L (0-55); ALBUMIN 3.6 GM/DL (3.2-4.5); ALKALINE PHOSPHATASE 106 U/L (40-136); BILIRUBIN,TOTAL 0.6 MG/DL (0.1-1.0); BUN/CREATININE RATIO 12; CALCIUM 8.7 MG/DL (8.5-10.1); CARBON DIOXIDE 21 MMOL/L (21-32); CHLORIDE 110 MMOL/L (98-107); CREATININE SERUM 0.73 MG/DL (0.60-1.30); GFR ESTIMATED > 60; GLUCOSE 112 MG/DL (70-105); POTASSIUM 3.9 MMOL/L (3.6-5.0); SODIUM 142 MMOL/L (135-145); TOTAL PROTEIN 7.1 GM/DL (6.4-8.2)
--- NOTE | 2018-10-14 08:00 | NUR ---
IS AT BEDSIDE, PATIENT STATES HE HAS DEMENTIA AND DOES NOT HAVE ANYONE TO TAKE CARE OF HER , DENIES HAVING FAMILY OR OUTSIDE ASSISTANCE. PATIENT IS CONFUSED AND UNABLE TO CARE FOR SELF. HOSPITAL SITTER AT BEDSIDE TO TAKE CARE OF . PATIENT DENIES PAIN AT THIS TIME, REMAINS NPO FOR SURGERY. PATIENT HAS MULTIPLE BRUISES ON BODY, RIGHT BREAST, RIGHT SHOULDER, LEFT BUTTOCKS, LEFT ELBOW, LEFT FLANK, AND HAS THREE ROUND UPPER [place] BRUISES ON ABD
--- NOTE | 2018-10-14 09:00 | NUR ---
CONSENT SIGNED FOR CLOSED REDUCTION INTERNAL FIXATION OF RIGHT FEMORAL NECK FRACTURE, MRSA NASAL SWAB DONE, PATIENT DENIES HAVING FAMILY TO ASSIST WITH , HAS DEMENTIA, SITTER AT BEDSIDE WITH , PATIENT DOES NOT KNOW HER HOME MEDICATIONS, STATES THERE IS NO ONE THAT CAN BRING BOTTLES TO HOSPITAL AND HER PHARMACY IS CLOSED TODAY, SCD ARE ON, SANDERS PATENT WITH CLEAR YELLOW URINE, DENIES NEED FOR PAIN MEDICATION AT THIS TIME.
[2018-10-14] MEDS ORDERED: BUPIVACAINE 0.5% 30 ML (SENSORCAINE) VIAL ONE ×2 (09:41→11:29)
[2018-10-14] MEDS ORDERED: proPOfol 200 MG/20 ML (DIPRIVAN) VIAL IV ONE (09:42)
[2018-10-14] MEDS ORDERED: LIDOCAINE PF 2% 5 ML (XYLOCAINE) VIAL ONE (09:42)
[2018-10-14] MEDS ORDERED: ONDANSETRON 4 MG/2 ML (SDV) Z0FRAN ONE ×2 (09:42→11:32)
[2018-10-14] MEDS ORDERED: fentaNYL INJECTION 100 MCG/2 ML AMP ONE (09:43)
[2018-10-14] MEDS ORDERED: MIDAZOLAM 2 MG/2 ML (VERSED) VIAL ONE (09:43)
--- NOTE | 2018-10-14 10:05 | NUR ---
TO SURGERY PER BED
[2018-10-14] MEDS: LACTATED RINGERS 1,000 ML IV PRN ×2 (10:08→11:12)
--- NOTE | 2018-10-14 10:12 | History & Physicial ---
History of Present Illness History of Present Illness Reason for visit/HPI Right hip fracture Date of Admission Oct 13, 2018 at 17:00 Date Seen by a Provider: Oct 14, 2018 Time Seen by a Provider: 10:04 I consulted on this patient on 10/14/18 10:03 Attending Physician Peña Hernandez DO Admitting Physician Breanna Sweeney DO Consult Allergies and Home Medications Allergies Coded Allergies: No Known Drug Allergies (Verified , 04/29/15) Home Medications Meclizine HCl 25 Mg Tablet, 12.5 MG PO TID Prescribed by: JAGJIT YOON on 01/03/18 1531 Ofloxacin 5 Ml Soln, 0 ML OU BID Prescribed by: JAGJIT YOON on 01/03/18 1531 Patient Home Medication List Home Medication List Reviewed: Yes Past Odcawqw-Ifvtcw-Bcsoij Hx Patient Social History Alcohol Use: Denies Use Recreational Drug Use: No Smoking Status: Never a Smoker 2nd Hand Smoke Exposure: No Physical Abuse Screen: No Sexual Abuse: No Recent Foreign Travel: No Contact w/other who traveled: No Recent Hopitalizations: Yes (SUBARACHNOID HEMORRHAGE) Recent Infectious Disease Expo: No Immunizations Up To Date Tetanus Booster (TDap): Unknown Seasonal Allergies Seasonal Allergies: No Surgeries No Respiratory No Cardiovascular No Neurological Yes (12/11) Genitourinary No Gastrointestinal Yes Gastroesophageal Reflux, Hemorrhoids Musculoskeletal Yes (12/11 TEMPORAL FX) Fractures Endocrine History of Endocrine Disorders: No HEENT History of HEENT Disorders: No Cancer No Psychosocial History of Psychiatric Problem: Yes Behavioral Health Disorders: Anxiety Integumentary History of Skin or Integumenta: No Blood Transfusions History of Blood Disorders: No Family Medical History Family Hx: Patient reports no known family medical history. Review of Systems Constitutional: no symptoms reported EENTM: no symptoms reported Respiratory: no symptoms reported Cardiovascular: no symptoms reported Gastrointestinal: no symptoms reported Musculoskeletal: joint pain Skin: no symptoms reported Psychiatric/Neurological: No Symptoms Reported Physical Exam Vital Signs Vital Signs - First Documented 10/13/18 16:29 Temp 99.3 Pulse 84 Resp 21 B/P (MAP) 140/76 (97) Pulse Ox 95 O2 Delivery Room Air Capillary Refill : Less Than 3 SecondsLess Than 3 Seconds Height, Weight, BMI Height: 5'0.00" Weight: 118lbs. 1.0oz. 53.429578vv; 23.1 BMI Method:Stated General Appearance: No Apparent Distress, WD/WN Eyes: Bilateral Eye Normal Inspection, Bilateral Eye PERRL, Bilateral Eye EOMI HEENT: PERRL/EOMI, Normal ENT Inspection, Moist Mucous Membranes Neck: Full Range of Motion, Normal Inspection, Non Tender, Supple Respiratory: No Accessory Muscle Use, No Respiratory Distress Cardiovascular: Regular Rate, Rhythm, No Edema, Normal Peripheral Pulses Gastrointestinal: No Pulsatile Mass, Non Tender, Soft Extremity: Normal Capillary Refill, No Calf Tenderness, No Pedal Edema, Other (RLE: pain Right hip with PROM, motor/sensation grossly intact, foot well perfused, skin intact) Neurologic/Psychiatric: Alert, Oriented x3, No Motor/Sensory Deficits, Normal Mood/Affect, 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 No additional MSK injuries. Recommend surgical stabilization. Plan discussed with patient including risks, benefits, potential complications and indications. Questions answered Informed written consent obtained. Mobilize with PT/OT post-op. Anticipate d/c to home vs inpatient rehab POD #1. Admission Diagnosis Admission Status: Inpatient Order (span 2 midnights) Reason for Inpatient Admission: Right hip fracture Laboratory Tests 10/13/18 14:55 10/13/18 17:07 10/14/18 06:27 Clinical Quality Measures DVT/VTE Risk/Contraindication: Risk Factor Score Per Nursin RFS Level Per Nursing on Admit: 4+=Very High PEÑA HERNANDEZ DO Oct 14, 2018 10:12
[2018-10-14] MEDS ORDERED: SEVOFLURANE (ULTANE) 15 ML INHAL SOLN ONE ×5 (10:32→11:54)
[2018-10-14] MEDS ORDERED: PHENYLEPHRINE 100 MCG/ML 10 ML (ANESTHESIA) SYR ONE (10:36)
[2018-10-14] MEDS ORDERED: ceFAZolin INJECTION 2,000 MG ONE (10:41)
[2018-10-14] MEDS ORDERED: morphine INJ 10 MG/ML 1ML (SYR OR VIAL) ONE (11:32)
--- NOTE | 2018-10-14 11:48 | Diagnostic Imaging Report ---
Impression: 1 minute fluoroscopic time, 2 fluoroscopic images. Dictated by: Dictated on workstation # [id number]
--- NOTE | 2018-10-14 11:56 | Progress Note-Post Operative ---
Post-Operative Progess Note Surgeon (s)/General Foundry Worker (s) Surgeon PEÑA HERNANDEZ DO General Foundry Worker: None Pre-Operative Diagnosis Valgus impacted fracture Right femoral neck Post-Operative Diagnosis Same Procedure & Operative Findings Date of Procedure 10/14/18 Procedure Performed/Findings Closed reduction/internal fixation Right femoral neck fracture. Anesthesia Type GETA Estimated Blood Loss Estimated blood loss (mL): 25 Specimens/Packing Specimens Removed None Packing: Complications: none Drains: none Disposition: tolerated the procedure well; transferred to PACU in stable condition PEÑA HERNANDEZ DO Oct 14, 2018 11:56
[2018-10-14] MEDS ORDERED: ceFAZolin 2 GM IV Premixed 50 ML IV SCH (12:00)
[2018-10-14] MEDS ORDERED: ONDANSETRON 4 MG/2 ML (SDV) Z0FRAN IVP PRN (12:15)
[2018-10-14] MEDS ORDERED: MEPERIDINE (DEMEROL) INJ 50 MG/ML IVP ONE (12:15)
[2018-10-14] MEDS ORDERED: PROMETHAZINE INJ 25 MG/ML (PHENERGAN) AMP IVP ONE (12:15)
[2018-10-14] MEDS ORDERED: morphine INJ 10 MG/ML 1ML (SYR OR VIAL) IVP ONE (12:15)
--- NOTE | 2018-10-14 13:00 | NUR ---
RETURNED FROM SURGERY, DROWSY, DRESSING DRY AND INTACT TO RIGHT HIP, SANDERS PATENT WITH CLEAR YELLOW URINE, ON ROOM AIR, O2 SAT 96 PERCENT.
[2018-10-14] MEDS: fentaNYL INJECTION 100 MCG/2 ML AMP IVP PRN (13:30)
--- NOTE | 2018-10-14 16:39 | NUR ---
ACCOUNTS ADMINISTRATOR INSTRUCTED NURSE TO CALL [facility] TO REPORT NEED FOR ASSISTANCE WITH WHO HAS DEMENTIA AND TO REPORT MULTIPLE BRUISES ON PATIENT. REMAINS AT BEDSIDE WITH HOSPITAL SITTER WATCHING . [place] REPORT #[id number]
[2018-10-14] MEDS: ceFAZolin 2 GM IV Premixed 50 ML IV SCH (18:12)
[2018-10-14] MEDS: HYDROcodone/APAP 5 MG/325 MG (LORTAB) TAB PO PRN (18:12)
[2018-10-15] VITALS (7 sets, daily range): BP systolic 112–152; BP diastolic 65–93
[2018-10-15] MEDS: D5 1/2 NS W/KCL 20 MEQ/L 1,000 ML IV SCH ×4 (01:00→22:12)
[2018-10-15] MEDS: HYDROcodone/APAP 5 MG/325 MG (LORTAB) TAB PO PRN ×3 (01:17→22:14)
[2018-10-15] MEDS ORDERED: ceFAZolin INJECTION 2,000 MG ONE (03:04)
[2018-10-15] MEDS ORDERED: NS (IVPB) 50 ML ONE (03:06)
[2018-10-15] MEDS: ceFAZolin 2 GM IV Premixed 50 ML IV SCH ×2 (03:24→11:32)
[2018-10-15] MEDS: fentaNYL INJECTION 100 MCG/2 ML AMP IVP PRN ×2 (05:02→12:45)
[2018-10-15] MEDS: ENOXAPARIN 40 MG/0.4 ML (LOVENOX) SYR SC SCH (08:05)
[2018-10-15] MEDS ORDERED: ROSU10TA28 PO (09:16)
[2018-10-15] MEDS ORDERED: METO-370 PO (09:16)
[2018-10-15] MEDS ORDERED: MECL-106 PO (09:16)
--- NOTE | 2018-10-15 09:19 | NUR ---
UPDATED MED REC WITH MEDICATIONS RECENTLY FILLED AT [facility]. PATIENT VERIFIED SHE IS TAKING THEM. SHE STATES SHE DOES NOT TAKE ANYTHING OTC.
--- NOTE | 2018-10-15 09:58 | Physical Therapy Evaluation ---
PT Evaluation-General Medical Diagnosis Admission Date Oct 13, 2018 at 17:00 Medical Diagnosis: rigranda hip fracture Onset Date: Oct 13, 2018 Therapy Diagnosis Therapy Diagnosis: debility/weakness Height/Weight Height (Feet): 5 Height (Inches): 0.00 Weight (Pounds): 118 Weight (Ounces): 1.0 Precautions Precautions/Isolations: Fall Prevention, Standard Precautions Weight Bear Status Right Lower Extremity: Right Weight Bearing/Tolerated Left Lower Extremity: Left Full Weight Bearing Referral Physician: Rodolfo Reason for Referral: Evaluation/Treatment Medical History Pertinent Medical History: Dementia, GERD Additional Medical History subarachnoid hemorrhage Current History s/p fall at home Reviewed History: Yes Social History Home: Single Level Current Living Status: Spouse Prior/Core FIM Prior Level of Function Therapy Code Descriptions/Definitions Functional Hanson Measure: 0=Not Assessed/NA 4=Minimal Assistance 1=Total Assistance 5=Supervision or Setup 2=Maximal Assistance 6=Modified Hanson 3=Moderate Assistance 7=Complete Hanson Therapy Quality Codes: 6 Independent with activity with or without an assistive device 5 Patient requires set up or clean up by helper. Patient completes activity by themselves 4 Supervision or touching assist (CGA). [place] provide cues , steadying assist 3 The helper provides less than half the effort to complete the activity 2 The helper provides more than half the effort to complete the activity 1 Dependent. The helper does all the effort to complete an activity 7 Patient refused to complete or attempt activity 9 The patient did not perform the activity before the current illness or injury 88 Not attempted due to Medical conditions or safety concerns Functional Abilities and Goals: Independent: Patient completed the activities by him/herself, with or without an assistive device, with no assistance from a helper. Needed Some Help: Patient needed partial assistance from another person to complete activities. Dependent: A helper completed the activities for the patient. Unknown: Not Applicable: Bed Mobility: 6 Transfers (B,C,W/C) (FIM): 6 Gait: 6 Indoor Mobility (Ambulation): Independent Prior Devices Use: Walker (4WW) caregiver for demented spouse PT Evaluation-Current Subjective Patient agrees to PT. Patient is in bed with right knee flexed with pillow under and difficulty with extending knee and and hip. Pain Numeric Pain Scale: 10-Worst Possible Pain Location: Right Location Body Site: Hip Pain Description: Acute Objective Patient Orientation: Confused Problem Solving: Poor Attachments: IV ROM/Strength ROM Lower Extremities right LE limited due to pain and resistance/left LE WFL Strength Lower Extremities right LE 3-/5 grossly/left LE 4/5 grossly Integumentary/Posture Integumentary refer to nursing notes Bowel Incontinence: No Bladder Incontinence: No Posture WFL Neuromuscular (Tone, Coordination, Reflexes) grossly intact Sensory Vision: Wears Glasses Hearing: Functional Sensation Right Lower Extremit: Intact Sensation Left Lower Extremity: Intact Transfers Therapy Code Descriptions/Definitions Functional Hanson Measure: 0=Not Assessed/NA 4=Minimal Assistance 1=Total Assistance 5=Supervision or Setup 2=Maximal Assistance 6=Modified Hanson 3=Moderate Assistance 7=Complete [place]on Transfers (B, C, W/C) (FIM): 3 Scootin Rollin Supine to/from Sit: 3 Sit to/from Stand: 3 bed t/f WC(FIM only if WC use): 3 Patient requires assistance due to pain/unable to tolerate weight bearing and would not place right foot on floor with transfers Balance Sitting Static: Normal Sitting Dynamic: Normal Standing Static: Fair Standing Dynamic: Fair Assessment/Needs 73 y.o. female, will benefit from skilled PT to address functional strength and mobility to improve current LOF. Patient is limited due to pain right LE. 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 From a PT standpoint, patient may req [facility] extended care facility to ensure safe return to home to care for spouse. Rehab Potential: Fair PT Short Term Goals Short Term Goals Time Frame: Oct 27, 2018 Transfers (B,C,W/C) (FIM): 4 Gait (FIM): 2 Distance (FIM): 1=170-60 ft Gait Distance Comment: 75' Gait Level of Assist: 4 Gait Assistive Device: FWW PT Maintenance Of Way Foreman Goals Maintenance Of Way Foreman Goals PT Maintenance Of Way Foreman Goals Time Frame: Nov 03, 2018 Transfers (B,C,W/C) (FIM): 6 Gait (FIM): 6 Distance: 150' Gait Level of Assist: 6 Gait Assistive Device: FWW PT Plan Problem List Problem List: Activity Tolerance, Functional Strength, Safety, Balance, Gait, Transfer, Bed Mobility, ROM Treatment/Plan Treatment Plan: Continue Plan of Care Treatment Plan: Bed Mobility, Education, Functional Activity Morgan, Functional Strength, Gait, Safety, Therapeutic Exercise, Transfers Treatment Duration: Nov 03, 2018 Frequency: 11 times per week Estimated Hrs Per Day: .5 hour per day Patient and/or Family Agrees t: Yes Safety Risks/Education Patient Education: Gait Training Teaching Recipient: Patient Teaching Methods: Demonstration, Discussion Response to Teaching: Reinforcement Needed Discharge Recommendations Therapy Discharge Recommendati: Other, See Comments (correction/LTCF) Time/GCodes Time In: 810 Time Out: 827 Total Billed Treatment Time: 17 Total Billed Treatment 1 visit EVModC 17 min PIPPA HSIEH PT Oct 15, 2018 09:58
--- NOTE | 2018-10-15 10:44 | Anesthesia-General Post-Op ---
General Patient Condition Mental Status/LOC: Same as Preop Cardiovascular: Satisfactory Nausea/Vomiting: Absent Respiratory: Satisfactory Pain: Controlled Complications: Absent Post Op Complications Complications None Follow Up Care/Instructions Patient Instructions None needed. Anesthesia/Patient Condition Patient Condition Patient is doing well, no complaints, stable vital signs, no apparent adverse anesthesia problems. No complications reported per nursing. BEBE HAM CRNA Oct 15, 2018 10:44
--- NOTE | 2018-10-15 12:00 | NUR ---
CM/SS responded to consult for SS. Spoke with the patient, her , Tori ([facility]) and the bandage wrapping machine operator line. Patient had attempted to drop her off at the facility over the weekend and they could not take him. They are considering placement this day if can get Dr orders from his PCP. Tori with [facility], did not feel that he would be appropriate for the assisted living side as he has wandered some when patient is not with him. Tori went over the cost per day with the patient through bandage wrapping machine operator several times in attempts to confirm they could afford this. Patient and her were concerned about lunch this day and how many meals were included with the stay at [facility]. Tori is to let this keno writer / runner know if / when they can take the patient's . When patient is ready to discharge then will assist in planning her discharge.
--- NOTE | 2018-10-15 12:55 | Occupational Therapy Eval ---
OT Evaluation-General/PLF Medical Diagnosis Admission Date Oct 13, 2018 at 17:00 Medical Diagnosis: Right hip fx/ORIF Onset Date: Oct 13, 2018 Therapy Diagnosis Therapy Diagnosis: Weakness Height/Weight Height (Feet): 5 Height (Inches): 0.00 Weight (Pounds): 118 Weight (Ounces): 1.0 Precautions Precautions/Isolations: Fall Prevention, Standard Precautions Safety Interventions: Bed Exit Alarm Weight Bear Status Weight Bearing Restriction: Weight Bearing/Tolerated Referral Physician: Rodolfo Referral Reason: Activity Tolerance, Self Care, Evaluation/Treatment, Strengthening/ROM Medical History Pertinent Medical History: Dementia, GERD Current History Pt. lives alone with spouse. Has had multiple falls. Fell at home and sust ained a hip fx. ORIF performed. WBAT. Reviewed History: Yes Social History Home: Single Level Current Living Status: Spouse Entry Into Home: Level Entry ADL-Prior Level of Function Therapy Code Descriptions/Definitions Functional [place] Measure: 0=Not Assessed/NA 4=Minimal Assistance 1=Total Assistance 5=Supervision or Setup 2=Maximal Assistance 6=Modified [place] 3=Moderate Assistance 7=Complete De[place] Therapy Quality Codes: 6 Independent with activity with or without an assistive device 5 Patient requires set up or clean up by helper. Patient completes activity by themselves 4 Supervision or touching assist (CGA). [place] provide cues , steadying assist 3 The helper provides less than half the effort to complete the activity 2 The helper provides more than half the effort to complete the activity 1 Dependent. The helper does all the effort to complete an activity 7 Patient refused to complete or attempt activity 9 The patient did not perform the activity before the current illness or injury 88 Not attempted due to Medical conditions or safety concerns Functional Abilities and Goals: Independent: Patient completed the activities by him/herself, with or without an assistive device, with no assistance from a helper. Needed Some Help: Patient needed partial assistance from another person to complete activities. Dependent: A helper completed the activities for the patient. Unknown: Not Applicable: ADL PLOF Comments Pt. states that she uses a cane in home. States that she was able to bathe/dress on her own prior to this. Self Care: Unknown Functional Cognition: Unknown DME/Equipment Comments Pt. reports that she uses a cane. Due to some communication/language barriers, this OT is uncertain of all other equipment. OT Current Status Subjective Pt. reports 5/10 in right hip with movement. Appearance Pt. in bed. Agrees to work with therapy. Mental Status/Objective Patient Orientation: Person Current Upper Extremity ROM WFL ADL-Treatment Therapy Code Descriptions/Definitions Functional Deuel Measure: 0=Not Assessed/NA 4=Minimal Assistance 1=Total Assistance 5=Supervision or Setup 2=Maximal Assistance 6=Modified Deuel 3=Moderate Assistance 7=Complete Deuel Therapy Quality Codes: 6 Independent with activity with or without an assistive device 5 Patient requires set up or clean up by helper. Patient completes activity by themselves 4 Supervision or touching assist (CGA). [place] provide cues , steadying assist 3 The helper provides less than half the effort to complete the activity 2 The helper provides more than half the effort to complete the activity 1 Dependent. The helper does all the effort to complete an activity 7 Patient refused to complete or attempt activity 9 The patient did not perform the activity before the current illness or injury 88 Not attempted due to Medical conditions or safety concerns Grooming (FIM): 5 (SBA to wash face and brush teeth while seated on side of bed.) Lower Body Dressing (FIM): 1 Toileting (FIM): 4 (Min assist in stance while pt. cleansed shalonda area.) Transfers (B, C, W/C) (FIM): 2 (Mod assist supine-sit. Min assist sit-stand and transfer to BSC. Min assist sit-supine. Max x 2 for bed mobility.) Toilet/Commode Transfer (FIM): 3 Pt. transfers to side of bed and then requests to use BSC. Pt. transfers to BSC with increased cues for safety and processing. After toileting, transfers back to bed but requests to lay back down. Min assist sit-supine. Max x 2 for bed positioning. Once positioned, pt. brushed teeth and washed face. All needs met at bed level. Education OT Patient Education: Correct positioning, Modified ADL techniques, Progress toward Goal/Update tx plan, Purpose of tx/functional activities, Reviewed precautions, Rehab process, Transfer techniques Teaching Recipient: Patient Teaching Methods: Demonstration, Discussion Response to Teaching: Verbalize Understanding, Return Demonstration, Reinforcement Needed OT Short Term Goals Short Term Goals Time Frame: Oct 22, 2018 Eating(FIM): 5 Grooming(FIM): 5 Bathing(FIM): 4 Upper Body Dressing(FIM): 4 Lower Body Dressing(FIM): 3 Toileting(FIM): 4 Transfers (B,C,W/C) (FIM): 4 Toilet/Commode Transfer(FIM): 4 Additional Short Term Goals: 1-Demonstrate ADL Tasks, 2-Verbalize Understanding, 3-ImproveStrength/Morgan 1=Demonstrate adherence to instructed precautions during ADL tasks. 2=Patient will verbalize/demonstrate understanding of assistive devices/modifications for ADL. 3=Patient will improve strength/tolerance for activity to enable patient to perform ADL's. OT [facility] Goals [place] [employer] Goals Time Frame: Oct 29, 2018 Eating (FIM): 5 Grooming(FIM): 5 Bathing(FIM): 4 Upper Body Dressing(FIM): 5 Lower Body Dressing(FIM): 5 Toileting(FIM): 5 Transfers (B,C,W/C) (FIM): 5 Toilet/Commode Transfer(FIM): 5 Shower Transfer(FIM): 4 Additional Goals: 1-Demonstrate ADL Tasks, 2-Verbalize Understanding, 3- ImproveStrength/Morgan 1=Demonstrate adherence to instructed precautions during ADL tasks. 2=Patient will verbalize/demonstrate understanding of assistive devices/modifications for ADL. 3=Patient will improve strength/tolerance for activity to enable patient to perform ADL's. OT Education/Plan Problem List/Assessment Assessment: Decreased Activ Tolerance, Dependent Transfers, Impaired Bed Mobility, Impaired Funct Balance, Impaired I ADL's, Impaired Self-Care Skills Discharge Recommendations Plan/Recommendations: Continue POC Therapy Discharge Recommendati: 24 Hour Supervision Comment This pt. is known to this therapist from previous hospitalization. Pt. states that she has no one to assist her at home. It is fully unknown how much assist spouse can provide, but pt. states "not much." Pt. would benefit from assisted living facility or environment that supervision can be given due to continued safety concerns and multiple falls. Treatment Plan/Plan of Care Treatment,Training & Education: Yes Patient would benefit from OT for education, treatment and training to promote independence in ADL's, mobility, safety and/or upper extremity function for ADL's. Plan of Care: ADL Retraining, Functional Mobility, UE Funct Exercise/Act Treatment Duration: Oct 29, 2018 Frequency: 5 times per week Estimated Hrs Per Day: .5 hour per day Agreement: Yes Rehab Potential: Fair Time/GCodes Start Time: 09:40 Stop Time: 10:05 Total Time Billed (hr/min): 25 Billed Treatment Time 1, EVH x 10minutes, ADL x 15minutes MARLENA DUPONT OT Oct 15, 2018 12:54
--- NOTE | 2018-10-15 13:30 | NUR ---
IRF Evaluation Order received to evaluate patient for the ARU. Chart review complete and findings discussed with Dr. Barker - patient accepted for admission. CM/SS notified. Intend to visit with patient in regards to rehabilitation program. Will continue to follow. Thank you for this referral.
--- NOTE | 2018-10-15 13:58 | NUR ---
IRF Met with patient to discuss details specific to rehab program. As this worker entered the room patient stated, "I remember you!" It is possible patient recalls this worker from her previous stay on rehab, December 2017. This worker was prepared to contact the language line as the patient's primary language is Mandarin; however, patient was able to converse and reiterate information discussed. Patient is agreeable to required therapy regimen and admission. Anticipate admission, 10/16/18. CM/SS notified. 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 This worker is unaware if this is temporary while patient is admitted to ARU, or if this is a intermediate manager placement. Will continue to follow.
--- NOTE | 2018-10-15 14:00 | NUR ---
Pastoral care visit.
--- NOTE | 2018-10-15 14:01 | Physical Therapy Daily Note ---
PT Daily Note-Current Subjective Patient had just returned to bed and agrees to exercise only. Per nursing, patient continues to NWB right LE with transfers. Pain Numeric Pain Scale: 10-Worst Possible Pain Location: Right Location Body Site: Hip Pain Description: Acute Comment: yells/meds issued IV Mental Status Patient Orientation: Person, Time Attachments: IV Transfers Therapy Code Descriptions/Definitions Functional Napoleon Measure: 0=Not Assessed/NA 4=Minimal Assistance 1=Total Assistance 5=Supervision or Setup 2=Maximal Assistance 6=Modified [place] 3=Moderate Assistance 7=Complete Napoleon Therapy Quality Codes: 6 Independent with activity with or without an assistive device 5 Patient requires set up or clean up by helper. Patient completes activity by themselves 4 Supervision or touching assist (CGA). [place] provide cues , steadying assist 3 The helper provides less than half the effort to complete the activity 2 The helper provides more than half the effort to complete the activity 1 Dependent. The helper does all the effort to complete an activity 7 Patient refused to complete or attempt activity 9 The patient did not perform the activity before the current illness or injury 88 Not attempted due to Medical conditions or safety concerns Weight Bearing Right Lower Extremity: Right Weight Bearing/Tolerated Left Lower Extremity: Left Full Weight Bearing Exercises Supine Ex: Ankle pumps, Quad Set, Heel Slides, Straight leg raise, Hip abd/add Supine Reps: 15 (AAROM bilateral LE x 2 sets) Assessment Patient positions right LE in ER and knee flexion for comfort. PT to increase activity as tolerated by patient. PT Short Term Goals Short Term Goals Time Frame: Oct 27, 2018 Transfers (B,C,W/C) (FIM): 4 Gait (FIM): 2 Distance (FIM): 0=495-81 ft Gait Distance Comment: 75' Gait Level of Assist: 4 Gait Assistive Device: FWW PT Accreditation Coordinator Goals Longterm Goals PT Longterm Goals Time Frame: Nov 03, 2018 Transfers (B,C,W/C) (FIM): 6 Gait (FIM): 6 Distance: 150' Gait Level of Assist: 6 Gait Assistive Device: FWW PT Plan Treatment/Plan Treatment Plan: Continue Plan of Care Treatment Plan: Bed Mobility, Education, Functional Activity Morgan, Functional Strength, Gait, Safety, Therapeutic Exercise, Transfers Treatment Duration: Nov 03, 2018 Frequency: 11 times per week Estimated Hrs Per Day: .5 hour per day Patient and/or Family Agrees t: Yes Time/GCodes Time In: 1235 Time Out: 1246 Total Billed Treatment Time: 11 Total Billed Treatment 1 visit EX 11 min PIPPA HSIEH PT Oct 15, 2018 14:01
--- NOTE | 2018-10-15 19:15 | Progress Note ---
Subjective Date Seen by a Provider: Oct 15, 2018 Time Seen by a Provider: 12:35 Subjective/Events-last exam Fwup right impacted femoral fracture, dizziness, hypertension. Patient confused. C/O right hip pain. Objective Exam Vital Signs Date Time Temp Pulse Resp B/P (MAP) Pulse Ox O2 Delivery O2 Flow Rate FiO2 10/15/18 16:00 38.1 91 22 139/65 98 Room Air 10/15/18 14:00 37.7 101 18 139/69 99 Room Air 10/15/18 12:33 93 10/15/18 12:00 37.7 101 18 139/69 99 Room Air 10/15/18 09:00 Room Air 10/15/18 07:48 36.8 82 18 142/93 95 Room Air 10/15/18 07:00 82 10/15/18 03:52 36.86122 85 18 112/71 (85) 95 Room Air 10/15/18 01:00 79 10/14/18 23:40 37.80780 81 16 115/70 (85) 96 Room Air 10/14/18 20:15 Room Air 10/14/18 19:42 36.05441 68 16 127/79 (95) 97 Room Air 10/14/18 19:10 78 I & O 10/15/18 06:59 Intake Total 2980 ml Output Total 2975 ml Balance 5 ml Capillary Refill : Less Than 3 SecondsLess Than 3 Seconds General Appearance: Mild Distress (due to pain) Neck: Supple Respiratory: Lungs Clear Cardiovascular: Regular Rate, Rhythm Gastrointestinal: normal bowel sounds, non tender, soft Extremity: Non Tender, No Calf Tenderness, No Pedal Edema Neurologic/Psychiatric: Alert, Oriented x3 Skin: Warm/Dry, Other (right lateral hip with dry dressing in place with some bruising inferiorly) Results Lab Laboratory Tests 10/15/18 04:20: Hemoglobin 11.0L, Hematocrit 34L Microbiology 10/14/18 MRSA Screen - Final, Complete Assessment/Plan Assessment/Plan Assess & Plan/Chief Complaint 1. Fall with Right Compacted Femoral Neck Fracture--S/P Closed Reduction Internal Fixation--pain control, DVT prophylaxis, PT/OT 2. Hypertension--Restart low dose metoprolol 3. Will need NH for both patient and on DC Clinical Quality Measures DVT/VTE Risk/Contraindication: Risk Factor Score Per Nursin RFS Level Per Nursing on Admit: 4+=Very High NICANOR ESTRELLA DO Oct 15, 2018 19:15
[2018-10-16 04:00] VITALS: BP 145/66
[2018-10-16] MEDS: HYDROcodone/APAP 5 MG/325 MG (LORTAB) TAB PO PRN ×2 (04:11→11:02)
[2018-10-16] MEDS: D5 1/2 NS W/KCL 20 MEQ/L 1,000 ML IV SCH (05:12)
[2018-10-16 08:00] VITALS: BP 114/59
[2018-10-16] MEDS ORDERED: MILK OF MAGNESIA 400 MG/5 ML 30 ML UDC PO NR (08:15)
--- NOTE | 2018-10-16 08:15 | Progress Note ---
Subjective Date Seen by a Provider: Oct 16, 2018 Time Seen by a Provider: 08:13 Subjective/Events-last exam Fwup right impacted femoral fracture, dizziness, hypertension. Patient states pain better this morning. States her is at [facility]. Objective Exam Vital Signs Date Time Temp Pulse Resp B/P (MAP) Pulse Ox O2 Delivery O2 Flow Rate FiO2 10/16/18 08:00 36.5 81 18 114/59 99 Room Air 10/16/18 06:59 98 10/16/18 04:00 37.2 76 18 145/66 97 Room Air 10/16/18 01:00 81 10/15/18 23:42 37.2 84 18 152/65 Room Air 10/15/18 21:00 Room Air 10/15/18 20:00 37.4 89 18 119/65 96 Room Air 10/15/18 19:00 86 10/15/18 16:00 38.1 91 22 139/65 98 Room Air 10/15/18 14:00 37.7 101 18 139/69 99 Room Air 10/15/18 12:33 93 10/15/18 12:00 37.7 101 18 139/69 99 Room Air 10/15/18 09:00 Room Air I & O 10/16/18 07:00 Intake Total 1800 ml Output Total 1575 ml Balance 225 ml Capillary Refill : Less Than 3 SecondsLess Than 3 Seconds General Appearance: No Apparent Distress Neck: Supple Respiratory: Lungs Clear Cardiovascular: Regular Rate, Rhythm Gastrointestinal: normal bowel sounds, non tender, soft Extremity: Non Tender, No Calf Tenderness, No Pedal Edema (ARNALDO hose in place) Neurologic/Psychiatric: Alert Skin: Warm/Dry, Other (right hip with dry dressing in place) Results Lab Microbiology 10/14/18 MRSA Screen - Final, Complete Assessment/Plan Assessment/Plan Assess & Plan/Chief Complaint 1. Fall with Right Compacted Femoral Neck Fracture--S/P Closed Reduction Internal Fixation--pain control, DVT prophylaxis, PT/OT, NH placement for DC, add senokot and MOM 2. Hypertension--Restarted low dose metoprolol 3. Hx of Vertigo--no complaints at this time Clinical Quality Measures DVT/VTE Risk/Contraindication: Risk Factor Score Per Nursin RFS Level Per Nursing on Admit: 4+=Very High NICANOR ESTRELLA DO Oct 16, 2018 08:15
[2018-10-16] MEDS: ENOXAPARIN 40 MG/0.4 ML (LOVENOX) SYR SC SCH (08:39)
[2018-10-16] MEDS ORDERED: SENNA W/DOCUSATE (SENOKOT S) TABLET PO SCH (09:00)
--- NOTE | 2018-10-16 09:40 | NUR ---
report given to ARU nurse
[2018-10-16] MEDS ORDERED: ACHD5005 PO (11:23)
[2018-10-16] MEDS ORDERED: METO-387 PO (11:23)
[2018-10-16] MEDS ORDERED: ENOX40DI8 SC (11:23)
[2018-10-16] MEDS ORDERED: SENN-20 PO (11:23)
[2018-10-16] MEDS ORDERED: ROSU10TA28 PO (11:25)
[2018-10-16] MEDS ORDERED: MECL-106 PO (11:25)
--- NOTE | 2018-10-16 11:43 | NUR ---
transferred to ARU with staff
[2018-10-16 11:44] VITALS: BP 114/59
[2018-10-17] MEDS ORDERED: METO-370 PO (09:15)
[2018-10-17] MEDS ORDERED: MECL-106 PO (09:15)
[2018-10-17] MEDS ORDERED: ROSU10TA22 PO (09:15)
--- NOTE | 2018-10-22 21:47 | OPERATIVE REPORT ---
DATE OF SERVICE: 10/14/2018 PREPROCEDURE DIAGNOSIS: Valgus impacted fracture of right femoral neck, [place] type 1. POSTOPERATIVE DIAGNOSIS: Valgus impacted fracture of right femoral neck, Garden type 1. PROCEDURE: Closed reduction followed by application of internal fixation of valgus impacted fracture of right femoral neck. IMPLANTS USED: Synthes 6.5 mm partially threaded cannulated screws x3 with 16 mm threads. ATTENDING SURGEON: Dr. Peña Hernandez. ANESTHESIA: General endotracheal. ESTIMATED BLOOD LOSS: 25 mL. COMPLICATIONS: None. SPECIMENS: None. DRAINS: None. FLUIDS: Per anesthesia record. BRIEF HISTORY AND INDICATIONS: The patient is a pleasant 73-year-old female, who on 10/13/2018 sustained a mechanical ground level fall, landing onto her right hip. The patient subsequently had severe right hip pain and an inability to ambulate or bear weight on her right lower extremity. She subsequently presented to the Emergency Department at [facility] for evaluation. Upon presentation, plain radiographs of the patient's right hip demonstrated valgus impacted fracture of the right femoral neck. Orthopedic Service was consulted for definitive management of her injury. Upon presentation, the patient did deny any additional musculoskeletal injuries, she denied head trauma or loss of subconsciousness or neck pain. Her right lower extremity had significant hip pain with any attempted range of motion, motor and sensory function was grossly intact, skin was intact without any open wounds and the right lower extremity was well perfused. I discussed the nature of her injury with her in detail preoperatively including the unstable nature of the injury and indication for operative fixation. I discussed the treatment plan with the patient in detail preoperatively including the risks, benefits, potential complications, expected outcomes, indications and alternatives. The risks that were discussed included, but were not limited to significant bleeding, infection, damage to surrounding neurovascular and soft tissue structures, mechanical irritation and/or failure of the hardware, malunion, nonunion, potential serious reactions to anesthesia, and potential need for secondary surgical procedures. The patient gave informed written consent to proceed as planned after all of her questions were answered to her satisfaction. PROCEDURE NOTE: After correctly identifying the patient as the patient in the preoperative holding area and after her right hip was appropriately marked, she was transferred to the operating room. Once in the operating room, she had successful induction of general endotracheal anesthesia and then she was transferred to a radiolucent fracture table and placed in the supine position. All bony prominences were meticulously padded. Bilateral lower extremities were secured to the fracture table in standard fashion in the scissor position. Gentle traction and gentle reduction remover was then performed of the right hip prior to prepping and draping. A C-arm image confirmed that the fracture was in acceptable position prior to proceeding with the procedure. The right hip was then prepped and draped in the routine sterile fashion. Prior to beginning the case, we completed an operating room timeout with all parties involved in the case and agreement and verified appropriate infusion of prophylactic antibiotics. Using a 10 blade scalpel, a small incision was made over the lateral aspect of the right hip beginning just distal to the greater trochanter and extending distally for approximately 4 cm. Bovie cautery was used to dissect through the subcutaneous tissue and fascia of the IT band and vastus lateralis. The 2.8 mm threaded tip guide pins were then placed into the femoral head and neck in an inverted triangle position under AP and lateral C-arm guidance. The measuring device was then used over the guide pins to measure the length of our screws. Three 6.5 mm partially threaded cannulated screws were then placed over the guide pins into the femoral head and neck and we achieved a very good purchase with all three screws. AP and lateral C-arm image confirmed that all of the screws were in an appropriate and safe position and that the fracture remained in acceptable position. The guide pins were then removed. The wound was then irrigated with copious amounts of sterile saline and then standard closure was performed after achievement of meticulous hemostasis. A 0 Vicryl was used to close the deep fascia, 2-0 Vicryl for the subcutaneous tissue, and a running 4-0 Monocryl subcuticular stitch and Dermabond glue for the skin. The patient has sterile dressing applied, followed by being awakened and extubated in the operating room without incident. She was then transferred to the PACU in stable condition. She tolerated the procedure quite well without complications. All counts were correct at the end of the case. Job ID: [id number] DocumentID: [id number] Dictated Date: 10/22/2018 17:34:51 Fermentologist Date: 10/22/2018 21:47:18 Dictated By: PEÑA HERNANDEZ
--- NOTE | 2018-10-24 21:35 | Physician Query Clarification ---
PQ-Intro New Diagnosis Admission/Discharge Admission Date: Oct 13, 2018 at 17:00 Discharge Date: Oct 16, 2018 at 11:30 The medical record reflects the following clinical scenario: History/Risk Factors: None Clinical Findings: fracture femoral neck Treatment: internal fixation Question: What condition best reflects the above clinical scenario? Please document a response in the Progress Noter or Discharge Summary. 1. Right femoral neck fracture, traumatic, due to ground level fall 2. Impacted proximal femoral shaft fracture as her fall was not from height most likely pathologic due to underlying osteoporosis (the only place this is in the chart, it Dr Urena's consult, no other mention of osteoporosis) 3. Other, with explanation of the clinical findings. 4. Clinically undetermined, no explanation for the clinical findings. PHYSICIAN RESPONSE What condition reflects above: 1 Please remember a lack of response to the above will prompt a phone page by CDI/Coding staff. In responding to this query, please exercise your independent professional judgment. The purpose of this communication is to more accurately reflect the complexity of your patients condition. The fact that a question is asked does not imply that any particular answer is desired or expected. Thank you for your timely response to this clarification. Requestors name: [ ] Phone # [ ] THIS PHYSICIAN QUERY FORM IS A PERMANENT PART OF THE MEDICAL RECORD RAYA BURTON Oct 24, 2018 21:35 PEÑA HERNANDEZ DO Oct 25, 2018 09:33
== END 2018-10-16 11:30 | DRG 482 ==
LOC: EDUNIT# 14:22 → ER 14:26 → 4TH 17:00
PROVIDERS: ADMIT Orthopaedic Surgery Orthopaedic Trauma; ATTEND Orthopaedic Surgery Orthopaedic Trauma
PROC: 0QS634Z Reposition Right Upper Femur with Internal Fixation Device, Percutaneous Approach (ICD-10-PCS; principal; 2018-10-14 10:20)
DX: S72.001A Fracture of unspecified part of neck of right femur, initial encounter for closed fracture (principal); I10 Essential (primary) hypertension; R42 Dizziness and giddiness; K21.9 Gastro-esophageal reflux disease without esophagitis; F41.9 Anxiety disorder, unspecified; W18.39XA Other fall on same level, initial encounter; Y92.008 Other place in unspecified non-institutional (private) residence as the place of occurrence of the external cause
CPT/HCPCS: 36415; 51702; 70450; 70486; 71045; 71260; 72125; 74177; 80053; 81000; 85014; 85018; 85025; 85610; 85730; 87081; 93041; 94664

== ENCOUNTER 2018-10-16 08:20 | Inpatient (IN) | payer MEDICARE ==
[~2018-10-16] VITALS: Ht 152.4 cm; Wt 53.6 kg
[~2018-10-16 08:20] MED LIST changes: +METO-370 PO; +ROSU10TA28 PO
--- NOTE | 2018-10-16 11:00 | NUR ---
DARRICK GEORGE admitted to room 228-1, with an admitting diagnosis of Hip replacement, on 10/16/18 from via wheelchair, accompanied by staff.DARRICK GEORGE introduced to surroundings, call light, bed controls, phone, TV, temperature control, lights, meal times, smoking policy, visitor policy, side rail policy, bathrooms and showers. Patient Rights given to patient in the handbook. DARRICK GEORGE verbalizes understanding that [facility] is not responsible for the loss or damage to any personal effects or valuables that are kept in the patients posession during their hospitalization. The following Patient Care Plans were discussed with the pt: Discharge Planning. DARRICK GEORGE verbalizes understanding of Interdisciplinary Patient Education. Patient and/or family were informed about the Rapid Response Team and its purpose.
[2018-10-16] MEDS ORDERED: ENOX40DI8 SC (11:23)
[2018-10-16] MEDS ORDERED: SENN-20 PO (11:23)
[2018-10-16] MEDS ORDERED: METO-387 PO (11:23)
[2018-10-16] MEDS ORDERED: ACHD5005 PO (11:23)
[2018-10-16] MEDS ORDERED: ROSU10TA28 PO (11:25)
[2018-10-16] MEDS ORDERED: MECL-106 PO (11:25)
--- NOTE | 2018-10-16 13:24 | Occupational Therapy Eval ---
OT Evaluation-General/PLF Medical Diagnosis Admission Date Oct 16, 2018 at 11:52 Medical Diagnosis: right hip fracture Onset Date: Oct 13, 2018 Therapy Diagnosis Therapy Diagnosis: impaired self care skills Height/Weight Height (Feet): 5 Height (Inches): 0.00 Weight (Pounds): 118 Weight (Ounces): 1.0 Weight Bear Status Weight Bearing Restriction: Weight Bearing/Tolerated Referral Physician: Lucero Medical History Pertinent Medical History: Dementia, GERD Current History Pt fell resulting in right hip fracture. Now s/p ORIF Social History Home: Single Level Current Living Status: Spouse ADL-Prior Level of Function Therapy Code Descriptions/Definitions Functional [place] Measure: 0=Not Assessed/NA 4=Minimal Assistance 1=Total Assistance 5=Supervision or Setup 2=Maximal Assistance 6=Modified [place] 3=Moderate Assistance 7=Complete [place] Therapy Quality Codes: 6 Independent with activity with or without an assistive device 5 Patient requires set up or clean up by helper. Patient completes activity by themselves 4 Supervision or touching assist (CGA). [place] provide cues , steadying lico t 3 The helper provides less than half the effort to complete the activity 2 The helper provides more than half the effort to complete the activity 1 Dependent. The helper does all the effort to complete an activity 7 Patient refused to complete or attempt activity 9 The patient did not perform the activity before the current illness or injury 88 Not attempted due to Medical conditions or safety concerns Functional Abilities and Goals: Independent: Patient completed the activities by him/herself, with or without an assistive device, with no assistance from a helper. Needed Some Help: Patient needed partial assistance from another person to complete activities. Dependent: A helper completed the activities for the patient. Unknown: Not Applicable: ADL PLOF Comments Pt states she was independent with self care prior to admission. States she did the cooking and cleaning. Self Care: Independent DME/Equipment: Bath Chair, Shower Drive Self: Yes OT Current Status Subjective Pt agreeable to therapy, reports pain in right hip, but does not rate. Mental Status/Objective Patient Orientation: Person Current Upper Extremity ROM Grossly WFL Upper Extremity Coordination Intact ADL-Treatment ADL-Current Pt in restroom when therapist arrives. Pt able to complete toileting hygiene with min assist for balance. Sit to stand and transfer to w/c with min assist using FWW. Pt is WBAT right LE, but completes transfer with TTWB. Pt washed hands and combed hair with set up while seated. Transfer to recliner chair with min assist with FWW. Pt's meal tray arrived and pt able to feed self after set up. Pt sitting in chair with needs met after session. Eating (FIM): 5 Eating (QC): 5 Grooming (FIM): 5 Toileting (FIM): 4 Toilet/Commode Transfer (FIM): 4 Toilet Transfer (QC): 3 Education OT Patient Education: Rehab process Teaching Recipient: Patient Teaching Methods: Discussion Response to Teaching: Reinforcement Needed OT Short Term Goals Short Term Goals Time Frame: Oct 23, 2018 Bathing(FIM): 4 Upper Body Dressing(FIM): 5 Lower Body Dressing(FIM): 4 Toilet/Commode Transfer(FIM): 4 (CGA) Additional Short Term Goals: 1-Demonstrate ADL Tasks, 2-Verbalize Understanding, 3-ImproveStrength/Morgan 1=Demonstrate adherence to instructed precautions during ADL tasks. 2=Patient will verbalize/demonstrate understanding of assistive devices/modifications for ADL. 3=Patient will improve strength/tolerance for activity to enable patient to perform ADL's. OT Detention Goals Detention Goals Time Frame: Nov 06, 2018 Eating (FIM): 6 Eating (QC): 6 Groomin Oral Hygiene (QC): 6 Bathing(FIM): 5 Shower/Bathe Self (QC): 5 Upper Body Dressing(FIM): 6 Upper Body Dressing (QC): 6 Lower Body Dressing(FIM): 5 Lower Body Dressing (QC): 5 On/Off Footwear (QC): 5 Toileting(FIM): 6 Toileting Hygiene (QC): 6 Toilet/Commode Transfer(FIM): 6 Toilet/Commode Transfer (QC): 6 Shower Transfer(FIM): 5 Additional Goals: 1-Demonstrate ADL Tasks, 2-Verbalize Understanding, 3- ImproveStrength/Morgan 1=Demonstrate adherence to instructed precautions during ADL tasks. 2=Patient will verbalize/demonstrate understanding of assistive devices/modifications for ADL. 3=Patient will improve strength/tolerance for activity to enable patient to perform ADL's. Goals established to promote increased functional independence and allow safe discharge plan. OT Education/Plan Problem List/Assessment Assessment: Decreased Activ Tolerance, Decreased UE Strength, Dependent Transfers, Impaired I ADL's, Impaired Self-Care Skills Pt admitted to ARU following acute hospitalization for right hip fracture, now s/p ORIF. Pt demonstrates decreased mobility, strength, activity tolerance, and ADL functioning. Pt to benefit from skilled OT intervention for ADL training, transfers, strengthening, and safety education to increase level of independence and allow safe discharge plan. Discharge Recommendations Plan/Recommendations: Continue POC Treatment Plan/Plan of Care Treatment,Training & Education: Yes Patient would benefit from OT for education, treatment and training to promote independence in ADL's, mobility, safety and/or upper extremity function for ADL's. Plan of Care: ADL Retraining, Functional Mobility, Group Exercise/Act as Ind, UE Funct Exercise/Act Treatment Duration: Nov 06, 2018 Frequency: At least 5 of 7 days/Wk (IRF) Estimated Hrs Per Day: 1.5 hours per day Agreement: Yes Rehab Potential: Fair Time/GCodes Start Time: 12:05 Stop Time: 12:35 Total Time Billed (hr/min): 30 Billed Treatment Time 1 visit, EVM(15minutes), ADL(15minutes) ZEENAT JOSE OT Oct 16, 2018 13:24
--- NOTE | 2018-10-16 13:28 | Physical Therapy Evaluation ---
PT Evaluation-General Medical Diagnosis Admission Date Oct 16, 2018 at 11:52 Medical Diagnosis: right hip fracture Onset Date: Oct 16, 2018 Therapy Diagnosis Therapy Diagnosis: debility/weakness Height/Weight Height (Feet): 5 Height (Inches): 0.00 Weight (Pounds): 118 Weight (Ounces): 1.0 Precautions Precautions/Isolations: Fall Prevention, Standard Precautions Weight Bear Status Right Lower Extremity: Right Weight Bearing/Tolerated Left Lower Extremity: Left Full Weight Bearing Referral Physician: Lucero Reason for Referral: Evaluation/Treatment Medical History Pertinent Medical History: Dementia, GERD Current History s/p fall at home resulting in right hip fracture with repair Reviewed History: Yes Social History Home: Single Level Current Living Status: Spouse Prior/Core FIM Prior Level of Function Therapy Code Descriptions/Definitions Functional [place] Measure: 0=Not Assessed/NA 4=Minimal Assistance 1=Total Assistance 5=Supervision or Setup 2=Maximal Assistance 6=Modified [place] 3=Moderate Assistance 7=Complete [place] Therapy Quality Codes: 6 Independent with activity with or without an assistive device 5 Patient requires set up or clean up by helper. Patient completes activity by themselves 4 Supervision or touching assist (CGA). [place] provide cues , steadying assist 3 The helper provides less than half the effort to complete the activity 2 The helper provides more than half the effort to complete the activity 1 Dependent. The helper does all the effort to complete an activity 7 Patient refused to complete or attempt activity 9 The patient did not perform the activity before the current illness or injury 88 Not attempted due to Medical conditions or safety concerns Functional Abilities and Goals: Independent: Patient completed the activities by him/herself, with or without an assistive device, with no assistance from a helper. Needed Some Help: Patient needed partial assistance from another person to complete activities. Dependent: A helper completed the activities for the patient. Unknown: Not Applicable: Bed Mobility: 6 Transfers (B,C,W/C) (FIM): 6 Gait: 6 Indoor Mobility (Ambulation): Independent Prior Devices Use: Walker (4WW) PT Evaluation-Current Subjective Patient yells with right LE pain with movement. Pain Numeric Pain Scale: 10-Worst Possible Pain Location: Right Location Body Site: Hip Pain Description: Acute Comment: FLACC Objective Patient Orientation: Person, Time, Situation Problem Solving: Poor ROM/Strength ROM Lower Extremities bilateral LE WFL (right LE patient limits ROM due to pain) Strenght Lower Extremities right LE 3-/5 grossly/left LE 4-/5 grossly Integumentary/Posture Integumentary right hip incision Bowel Incontinence: Yes Bladder Incontinence: Yes Posture WFL Neuromuscular (Tone, Coordination, Reflexes) grossly intact Sensory Vision: Wears Glasses Hearing: Functional Sensation Right Lower Extremit: Intact Sensation Left Lower Extremity: Intact Transfers Therapy Code Descriptions/Definitions Functional [place] Measure: 0=Not Assessed/NA 4=Minimal Assistance 1=Total Assistance 5=Supervision or Setup 2=Maximal Assistance 6=Modified [place] 3=Moderate Assistance 7=Complete [place] Therapy Quality Codes: 6 Independent with activity with or without an assistive device 5 Patient requires set up or clean up by helper. Patient completes activity by themselves 4 Supervision or touching assist (CGA). [place] provide cues , steadying assist 3 The helper provides less than half the effort to complete the activity 2 The helper provides more than half the effort to complete the activity 1 Dependent. The helper does all the effort to complete an activity 7 Patient refused to complete or attempt activity 9 The patient did not perform the activity before the current illness or injury 88 Not attempted due to Medical conditions or safety concerns Transfers (B, C, W/C) (FIM): 4 Scootin Rollin Roll Left to Right (QC): 4 Supine to/from Sit: 4 Sit to/from Stand: 4 Sit to Lying (QC): 4 Lying to Sitting/Side of Bed(Q: 4 Sit to Stand (QC): 4 Chair/Ypz-gb-Zuztq Xfer(QC): 4 Car Transfer (QC): 4 Gait Does the Patient Walk?: Yes Mode of Locomotion: Walk Anticipated Mode of Locomotion: Walk Gait (FIM): 1 Distance (FIM): 1=up to 49 ft Walk 10 feet (QC): 4 Walk 50 ft with 2 Turns(QC): 88 Walk 150 ft (QC): 88 Walking 10ft/uneven surface-QC: 4 Distance: 15'x 4 Gait Level of Assist: 4 Gait Persons Needed: 1 Gait Assistive Device: FWW Comments/Gait Description slow, antalgic, patient prefers TTWB but is WBAT right LE Stairs Stairs (FIM): 1 #of Steps: 1 Level of Assist: 4 1 Step (curb) (QC): 4 4 Steps (QC): 88 Assistive Device: Walker 12 Steps (QC): 88 Balance Sitting Static: Normal Sitting Dynamic: Normal Standing Static: Fair Standing Dynamic: Fair Assessment/Needs 73 y.o. female, will benefit from skilled PT to address functional strength and mobility to improve current LOF to safely return to home or facility at maximum LOF. Rehab Potential: Fair PT Senior Living Goals Senior Living Goals PT Senior Living Goals Time Frame: Nov 10, 2018 Transfers (B,C,W/C) (FIM): 6 Sit to Lying (QC): 6 Lying-Sitting on Side/Bed(QC): 6 Sit to Stand (QC): 6 Rollin Roll Left to Right (QC): 6 Chair/Oxk-cq-Rwziz Xfer(QC): 6 Car Transfer (QC): 6 Does the Patient Walk: Yes Gait (FIM): 6 Gait distance (FIM): 3=150 ft Distance: 250' Walk 10 feet (QC): 6 Walk 10ft-Uneven Surface(QC): 6 Walk 50ft with 2 Turns (QC): 6 Walk 150 ft (QC): 6 Gait Level of Assist: 6 Gait Assistive Device: FWW Stairs (FIM): 2 # of Steps: 4 1 Step (curb) (QC): 5 4 Steps (QC): 5 12 Steps (QC): 9 Stairs Level Of Assist: 5 Picking up an Object (QC): 5 PT Plan Problem List Problem List: Activity Tolerance, Functional Strength, Safety, Balance, Gait, Transfer, Bed Mobility Treatment/Plan Treatment Plan: Continue Plan of Care Treatment Plan: Bed Mobility, Education, Functional Activity [place], Functional Strength, Gait, Safety, Therapeutic Exercise, Transfers Treatment Duration: Nov 10, 2018 Frequency: At least 5 of 7 days/Wk (IRF) Estimated Hrs Per Day: 1.5 hours per day Patient and/or Family Agrees t: Yes Safety Risks/Education Patient Education: Gait Training, Safety Issues Teaching Recipient: Patient Teaching Methods: Demonstration, Discussion Response to Teaching: Verbalize Understanding, Reinforcement Needed Discharge Recommendations Therapy Discharge Recommendati: 24 Hour Supervision, Assisted Living Time/GCodes Time In: 1135 Time Out: 1205 Total Billed Treatment Time: 30 Total Billed Treatment 1 visit EVModC 30 min PIPPA HSIEH PT Oct 16, 2018 13:28
--- NOTE | 2018-10-16 13:43 | Physical Therapy Daily Note ---
PT Daily Note-Current Subjective Patient requested commode use due to incontinence BM. Mental Status Patient Orientation: Person, Time Transfers Therapy Code Descriptions/Definitions Functional [place] Measure: 0=Not Assessed/NA 4=Minimal Assistance 1=Total Assistance 5=Supervision or Setup 2=Maximal Assistance 6=Modified [place] 3=Moderate Assistance 7=Complete [place] Therapy Quality Codes: 6 Independent with activity with or without an assistive device 5 Patient requires set up or clean up by helper. Patient completes activity by themselves 4 Supervision or touching assist (CGA). [place] provide cues , steadying assist 3 The helper provides less than half the effort to complete the activity 2 The helper provides more than half the effort to complete the activity 1 Dependent. The helper does all the effort to complete an activity 7 Patient refused to complete or attempt activity 9 The patient did not perform the activity before the current illness or injury 88 Not attempted due to Medical conditions or safety concerns Transfers (B, C, W/C) (FIM): 4 Scootin Sit to/from Stand: 4 Sit to Stand (QC): 4 assistance with cleansing by RN performed with PT CGA with patient for safety Weight Bearing Right Lower Extremity: Right Weight Bearing/Tolerated Left Lower Extremity: Left Full Weight Bearing Gait Training Does the Patient Walk?: Yes Gait (FIM): 1 Distance (FIM): 1=up to 49 ft Distance: 8' Gait Level of Assist: 4 Gait Persons Needed: 1 Gait Assistive Device: FWW antalgic Assessment Patient in w/c to Group Therapy. PT to increase activity as tolerated by patient. PT [facility] Goals Boat Joiner Goals PT Boat Joiner Goals Time Frame: Nov 10, 2018 Transfers (B,C,W/C) (FIM): 6 Sit to Lying (QC): 6 Lying-Sitting on Side/Bed(QC): 6 Sit to Stand (QC): 6 Rollin Roll Left to Right (QC): 6 Chair/Vms-rs-Akbwq Xfer(QC): 6 Car Transfer (QC): 6 Does the Patient Walk: Yes Gait (FIM): 6 Gait distance (FIM): 3=150 ft Distance: 250' Walk 10 feet (QC): 6 Walk 10ft-Uneven Surface(QC): 6 Walk 50ft with 2 Turns (QC): 6 Walk 150 ft (QC): 6 Gait Level of Assist: 6 Gait Assistive Device: FWW Stairs (FIM): 2 # of Steps: 4 1 Step (curb) (QC): 5 4 Steps (QC): 5 12 Steps (QC): 9 Stairs Level Of Assist: 5 Picking up an Object (QC): 5 PT Plan Treatment/Plan Treatment Plan: Continue Plan of Care Treatment Plan: Bed Mobility, Education, Functional Activity [place], Functional Strength, Gait, Safety, Therapeutic Exercise, Transfers Treatment Duration: Nov 10, 2018 Frequency: At least 5 of 7 days/Wk (IRF) Estimated Hrs Per Day: 1.5 hours per day Patient and/or Family Agrees t: Yes Time/GCodes Time In: 1300 Time Out: 1315 Total Billed Treatment Time: 15 Total Billed Treatment 1 visit FA 15 min PIPPA HSIEH PT Oct 16, 2018 13:43
[2018-10-16] MEDS ORDERED: HYDROcodone/APAP 5 MG/325 MG (LORTAB) TAB PO PRN (13:45)
[2018-10-16] MEDS ORDERED: fentaNYL INJECTION 100 MCG/2 ML AMP IVP PRN ×2 (13:45)
--- NOTE | 2018-10-16 13:45 | PM&R H&P / Post Admit Assess ---
History of Present Illness HPI/Chief Complaint Chief complaint: Debility following right hip fracture. HPI: This is a 73yo oriental female clinic Pt of Dr. Sweeney who has a history of chronic vertigo and multiple falls, most recently was a subdural hematoma of which I took care of her during a weekend that Dr. 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 Reynolds that was uncomplicated. Her bowels reported to be moving per Pt but unsure if she understood the question. She doesn't appear to have any confusion, she does understand Spanish but there is still a language barrier there, her prior level of function was ambulation without the use of assisted devices and the plan would be to go to assisted living at discharge and Pt will be closely monitored during inpatient rehab stay and to gain confidence and become successful and discharge. Source: patient, RN/MD, old records Exam Limitations: language barrier Date Seen 10/16/18 Time Seen by a Provider: 12:30 Attending Physician Radha Barker DO PCP Breanna Sweeney DO Referring Physician Date of Admission Oct 16, 2018 at 11:52 Home Medications & Allergies Home Medications Reviewed patient Home Medication Reconciliation performed by pharmacy medication reconciliations energy and conservation technician and/or nursing. Patients Allergies have been reviewed. Allergies Allergies Coded Allergies No Known Drug Allergies (Verified04/29/15) Past Uwfvbvb-Rnkiym-Nhtcey Hx Past Med/Social Hx: Reviewed Nursing Past Med/Soc Hx, Reviewed and Corrections made Patient Social History Marrital Status: Employed/Student: retired Smoking Status: Never a Smoker 2nd Hand Smoke Exposure: No Recent Hopitalizations: Yes (SUBARACHNOID HEMORRHAGE) Immunizations Up To Date Tetanus Booster (TDap): Unknown Seasonal Allergies Seasonal Allergies: No Past Medical History Surgeries: Orthopedic Cardiac: High Cholesterol, Hypertension Neurological: Stroke (SAH 12/24), Traumatic Brain Injury, Vertigo Gastrointestinal: Gastroesophageal Reflux, Diverticulosis, Hemorrhoids, Hiatal Hernia Musculoskeletal: Fractures Psychosocial: Anxiety History of Blood Disorders: No Family History Patient reports no known family medical history. Review of Systems Constitutional: see HPI EENTM: no symptoms reported Respiratory: no symptoms reported Cardiovascular: no symptoms reported Gastrointestinal: constipation Genitourinary: no symptoms reported Musculoskeletal: back pain, joint pain Skin: no symptoms reported Psychiatric/Neurological: No Symptoms Reported All Other Systems Reviewed Negative Unless Noted: Yes Physical Exam Exam Vital Signs Vital Signs Date Time Temp Pulse Resp B/P (MAP) Pulse Ox O2 Delivery O2 Flow Rate FiO2 10/16/18 19:00 86 10/16/18 18:00 36.8 18 122/68 98 Room Air Capillary Refill : General Appearance: No Apparent Distress, WD/WN, Chronically ill HEENT: PERRL/EOMI, TMs Normal, Normal ENT Inspection, Pharynx Normal, Moist Mucous Membranes Neck: Full Range of Motion, Normal Inspection, Non Tender, Supple Respiratory: Chest Non Tender, Lungs Clear, Normal Breath Sounds, No Accessory Muscle Use, No Respiratory Distress Cardiovascular: Regular Rate, Rhythm, No Edema, No Gallop, No JVD, No Murmur Gastrointestinal: Normal Bowel Sounds, No Organomegaly, No Pulsatile Mass, Non Tender, Soft Back: Normal Inspection, No CVA Tenderness, No Vertebral Tenderness Extremity: Normal Capillary Refill, Normal Inspection, Normal Range of Motion (except right leg decreased ROM), Non Tender, No Calf Tenderness, No Pedal Edema Neurologic/Psychiatric: Alert, Oriented x3, No Motor/Sensory Deficits, Normal Mood/Affect, well digger II-XII Norm as Tested, Motor Weakness (generalized lower legs) Skin: Normal Color, Warm/Dry Lymphatic: No Adenopathy Results Results/Procedures Labs Patient resulted labs reviewed. Assessment/Plan Assessment and Plan Assess & Plan/Chief Complaint Plan: Pain control Monitor BP and HR Lovenox Monitor labs IRF protocol AL at DC (1) Closed right hip fracture (2) Frequent falls Status: Acute (3) HTN (hypertension) Status: Acute (4) Chronic vertigo Status: Acute (5) SAH (subarachnoid hemorrhage) Status: Acute (6) Dizziness Status: Acute (7) Anemia (8) Hypertension (9) Hyperlipidemia Post Admission Physician Asses Date seen by provider: Oct 16, 2018 Time seen by provider: 12:30 Admisison Dx: (1) Closed right hip fracture The preadmission screen agrees with the post admission assessment that the patient is a good candidate for inpatient rehabilitation. The patient will have a comprehensive program of inpatient rehabilitation with a goal of maximizing level of functional independence prior to discharge home with family. The patient will have PT/OT ninety minutes per day, each discipline, five days a week for gait, strengthening, conditioning, balance, ADLs, any patient/family/caregiver training as necessary. Speech therapy to do cognitive assessment and treat as indicated. Rehabilitation nursing to assist with bowel, bladder, skin, wound care, medication administration, pain management. Weigher Packing to assist with discharge planning, community reentry. SCD's for DVT prophylaxis. She appears to be well motivated to participate in three hours of therapy a day. She should be able to tolerate three hours of therapy a day from a medical standpoint. She should benefit from the three hours of therapy a day. She has a reasonable discharge plan, reasonable discharge rehabilitation goals and a supportive family. She has various comorbidities that need to be closely monitored with medications and treatments adjusted on a daily basis as needed. These include: see list Barriers to discharge for this patient who had been independent prior to this are for her to be modified independent to supervision for ADLs and mobility skills prior to discharge home with family, so as to lessen the burden of the caregivers. Risks for this patient include: 1. Fall 2. Fracture 3. DVT 4. Pulmonary embolism 5. Wound infection 6. Skin breakdown 7. Contractures 8. Poorly controlled pain 9. Urinary retention 10. UTI 11. Respiratory infection 12. Aspiration Estimated Length of Stay: 10 days Prognosis: Rehab prognosis appears good for goal of discharge home with family modified independent to supervision for ADLs and mobility skills. RADHA BARKER DO Oct 16, 2018 13:45
[2018-10-16 14:04] VITALS: BP 123/79
--- NOTE | 2018-10-16 14:19 | History & Physical ---
[facility] 10/16/18 1419: History of Present Illness History of Present Illness Reason for visit/HPI Pt is a 73 y/o female from [facility] w/ hx of allergic angioedema, SAH, TIA, Essential HTN, and unsteady gait here s/p repair of Impaction fracture involving the proximal right femur without evidence of dislocation of the right femoroacetabular joint. Pt notes she fell sometime last week after feeling dizzy and losing balance while struggling to open her car door. She was able to get back up on her own at the time but developed progressive RLE pain. Pt notes she did not get her leg checked out sooner for financial problems and the fact that she is the lone caregiver for her who suffers from advanced dementia. Pt has a hx of dizziness and similar episode of fall which resulted in a subarachnoid hemorrhage on 12/10/17 which did not require surgical intervention; per past medical records, pt did end staying on rehab at the time and recovered well. Pt ambulated w/o assistance from a walker or a cane and notes she was in her baseline state of health prior to the current fall. Pt appears younger and seems to have a higher fitness level for her age. 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 She denies any pain out of proportion to her recent surgery or any other sx. Notes she has been voiding her bladder normally and had a normal BM today. Pt has no family in town. She has never conceived any children but does have 2 stepchildren from her current . Her 2 stepchildren both live in different states; she has 4 grandchildren from her stepson. She last saw her 2 stepchildren last year. Pt states her is currently living at [facility] as he is completely dependent on her. States she will be selling their house after she has recovered and discharged from rehab and [facility] the [facility] of her life. Upon inquiry about selling the house, pt states we are too poor to live there, I believe I will next year and I want to sell my house and donate some money to [facility]. Pt does not appear tearful or emotional as she relays this information [id number]. Pt does not offer any medical reason for her prediction and only notes its a feeling she has. Patient has seen Dr. Ruiz and Dr. Urena in the past. Date of Admission Oct 16, 2018 at 11:52 Date Seen by a Provider: Oct 16, 2018 Time Seen by a Provider: 14:16 I consulted on this patient on 10/16/18 14:16 Attending Physician Radha Winter DO Admitting Physician Breanna Sweeney DO Consult Allergies and Home Medications Allergies Coded Allergies: No Known Drug Allergies (Verified , 04/29/15) Home Medications Meclizine HCl 25 Mg Tablet, 25 MG PO TID PRN for DIZZINESS, (Reported) Metoprolol Succinate 50 Mg Tab.er.24h, 50 MG PO DAILY, (Reported) Rosuvastatin Calcium 10 Mg Tablet, 10 MG PO HS, (Reported) Past Jztqzqy-Jchmik-[id number] Hx Patient Social History Marrital Status: Number of Children: 0 Employed/Student: unemployed Alcohol Use: Denies Use Recreational Drug Use: No Smoking Status: Never a Smoker 2nd Hand Smoke Exposure: No Recent Hopitalizations: Yes (SUBARACHNOID HEMORRHAGE) Immunizations Up To Date Tetanus Booster (TDap): More than 5yrs Seasonal Allergies Seasonal Allergies: No Surgeries Yes (EGD/COLONOSCOPY 04/2015) Respiratory No Cardiovascular Yes High Cholesterol, Hypertension, Valvular Heart Disease (Rheumatic Tricuspid insufficinecy 06/21/18) Neurological Yes TIA, Vertigo Reproductive System : 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 Genitourinary No Gastrointestinal Yes (ALL NOTED ON EGD/COLONOSCOPY) Gastroesophageal Reflux, Diverticulosis, Hemorrhoids, Hiatal Hernia Musculoskeletal Yes Osteoporosis, Fractures Endocrine History of Endocrine Disorders: No HEENT History of HEENT Disorders: No Cancer No Psychosocial History of Psychiatric Problem: Yes Behavioral Health Disorders: Anxiety Integumentary History of Skin or Integumenta: No Blood Transfusions History of Blood Disorders: No Family Medical History Significant Family History: Diabetes Other Significan Family Hx: father liver disease Family Hx: Patient reports no known family medical history. Review of Systems Constitutional: see HPI; No chills, No diaphoresis, No dizziness, No weight loss EENTM: No vision loss Respiratory: No cough Cardiovascular: No chest pain, No edema Physical Exam Vital Signs Vital Signs - First Documented 10/16/18 14:04 Temp 36.5 Pulse 80 Resp 18 B/P (MAP) 123/79 Pulse Ox 100 O2 Delivery Room Air Capillary Refill : Height, Weight, BMI Height: 5'0.00" Weight: 118lbs. 1.0oz. [id number]; 23.1 BMI Method:Stated Eyes: Bilateral Eye Normal Inspection, Bilateral Eye PERRL, Bilateral Eye EOMI HEENT: PERRL/EOMI, TMs Normal, Normal ENT Inspection Neck: Full Range of Motion, Normal Inspection, Non Tender Respiratory: Chest Non Tender, Lungs Clear, Normal Breath Sounds, No Accessory Muscle Use, No Respiratory Distress Cardiovascular: Regular Rate, Rhythm, No Edema, No Gallop, No JVD, No Murmur, Normal Peripheral Pulses Back: Normal Inspection, No CVA Tenderness, No Vertebral Tenderness Extremity: Normal Capillary Refill, Normal Inspection, No Calf Tenderness Neurologic/Psychiatric: Alert, Oriented x3, No Motor/Sensory Deficits, Normal Mood/Affect Skin: Normal Color, Warm/Dry Lymphatic: No Adenopathy Assessment/Plan Assessment and Plan Assessment Post op repair of Impaction fracture of proximal Right femur stable vitals Normal cognition Pain under control Motivated to work with PT Essential HTN Plan PT, OT @ inpatient rehab Pt does not appear depressed, however may benefit from psych eval both to have a baseline status and to assess her mood and her thoughts about her predictions regarding her Low dose metoprolol BM regimen DVT prophylaxis Admission Diagnosis Admission Status: Other Clinical Quality Measures DVT/VTE Risk/Contraindication: Risk Factor Score Per Nursin RADHA WINTER DO 10/17/18 0841: History of Present Illness History of Present Illness Reason for visit/HPI Verification and Attestation of Medical Student E/M Service A medical student performed and documented this service in my presence. I revi ewed and verified all information documented by the medical student and made modifications to such information, when appropriate. I personally performed the physical exam and medical decision making. Radha Winter, Oct 17, 2018,15:25 Date of Admission 10/16/18 Allergies and Home Medications Allergies Coded Allergies: No Known Drug Allergies (Verified , 04/29/15) Home Medications Meclizine HCl 25 Mg Tablet, 25 MG PO TID PRN for DIZZINESS, (Reported) Metoprolol Succinate 50 Mg Tab.er.24h, 50 MG PO DAILY, (Reported) Rosuvastatin Calcium 10 Mg Tablet, 10 MG PO HS, (Reported) Patient Home Medication List Home Medication List Reviewed: Yes Past Giyotya-Emfupj-Hfkrpx Hx Patient Social History Marrital Status: Employed/Student: retired Alcohol Use: Denies Use Smoking Status: Never a Smoker Family Medical History Family Hx: Patient reports no known family medical history. Review of Systems Constitutional: see HPI Physical Exam General Appearance: Chronically ill Assessment/Plan Assessment and Plan Problems: (1) Closed right hip fracture Supervisory-Addendum Brief Verification & Attestation Participated in pt care: history, MDM, physical Personally performed: exam, history, MDM, supervision of care Care discussed with: Medical Student Procedures: n/a Results interpretation: Verified all documentation Verification and Attestation of Medical Student E/M Service A medical student performed and documented this service in my presence. I reviewed and verified all information documented by the medical student and made modifications to such information, when appropriate. I personally performed the physical exam and medical decision making. Radha Winter, Oct 17, 2018,08:40 LEIGHANN MADRID MED STUD Oct 16, 2018 14:19 RADHA WINTER DO Oct 17, 2018 08:41
--- NOTE | 2018-10-16 14:45 | Therapy Group Daily Note ---
Therapy Daily Group Note Patient Education Topic Home Safety, Fall Prevention, ADL Exercises Balance, Sit to/from Stand Session Ratio (pt:therapist): 4:1 Goal of Session: Education on ARU Expectations, Home Safety Strategies, Memory Strategies, Use of Adaptive Equipment Home safety education Adaptive equipment education Socialization and cognitive activity with historical trivia Goal Met for this Session: Yes Pt Benefit of Group: F/U Use of Strategies @Home, Increased Functional Safety, Recognition of Peers, Socialization Pt. participated in group therapy session that focused on home safety and cognitive trivia. Pt. able to state name, where from, and a story pertaining to home safety. Then participated collectively with group for education regarding home safety strategies, adaptive equipment, and further education on discharge planning. This group also contained trivia pertaining to history, thus engaging in memory and knowledge. Pt. participated well. Start Time: 13:00 Stop Time: 14:15 Total Billed Treatment Time: 75 Total Billed Treatment 1, Group MARLENA DUPONT OT Oct 16, 2018 14:45
--- NOTE | 2018-10-16 15:06 | Occupational Ther Daily Note ---
OT Current Status-Daily Note Subjective Pt sitting in chair, states she is tired. Pt reports pain in right hip, but does not rate. Mental Status/Objective Therapy Code Descriptions/Definitions Functional [place] Measure: 0=Not Assessed/NA 4=Minimal Assistance 1=Total Assistance 5=Supervision or Setup 2=Maximal Assistance 6=Modified [place] 3=Moderate Assistance 7=Complete [place] ADL-Treatment Pt declined shower this afternoon secondary to fatigue, but agrees to sponge bath. Pt bathed upper body with SBA and verbal cues. Pt able to wash bilateral upper legs, but requires assist for lower legs/feet. Pt does not have any clothes here, donned gown with setup. Assist required to don socks. Pt brushed teeth with SBA while seated. Sit to stand and transfer to [facility] with min assist using FWW. Pt able to pull Depends down and complete toileting hygiene, but req uires assist to pull Depends up. Transfer to bed with min assist. Sit to supine with min assist. Pt resting in bed with needs met and bed alarm on per RN request. Therapy Code Descriptions/Definitions Functional [place] Measure: 0=Not Assessed/NA 4=Minimal Assistance 1=Total Assistance 5=Supervision or Setup 2=Maximal Assistance 6=Modified [place] 3=Moderate Assistance 7=Complete [place] Therapy Quality Codes: 6 Independent with activity with or without an assistive device 5 Patient requires set up or clean up by helper. Patient completes activity by themselves 4 Supervision or touching assist (CGA). [place] provide cues , steadying assist 3 The helper provides less than half the effort to complete the activity 2 The helper provides more than half the effort to complete the activity 1 Dependent. The helper does all the effort to complete an activity 7 Patient refused to complete or attempt activity 9 The patient did not perform the activity before the current illness or in jury 88 Not attempted due to Medical conditions or safety concerns Grooming (FIM): 5 Oral Hygiene (QC): 4 Bathing (FIM): 3 Bathing Location: L Arm, R Arm, L Upper Leg, R Upper Leg, Chest, Abdomen, Perineal Area Shower/Bathe Self (QC): 3 On/Off Footwear (QC): 1 Toileting (FIM): 3 Toileting Hygiene (QC): 3 Toilet/Commode Transfer (FIM): 4 Toilet Transfer (QC): 3 OT Short Term Goals Short Term Goals Time Frame: Oct 23, 2018 Bathing(FIM): 4 Upper Body Dressing(FIM): 5 Lower Body Dressing(FIM): 4 Toilet/Commode Transfer(FIM): 4 (CGA) Additional Short Term Goals: 1-Demonstrate ADL Tasks, 2-Verbalize Understanding, 3-ImproveStrength/Morgan 1=Demonstrate adherence to instructed precautions during ADL tasks. 2=Patient will verbalize/demonstrate understanding of assistive dev ices/modifications for ADL. 3=Patient will improve strength/tolerance for activity to enable patient to perform ADL's. OT [facility] Goals Validation Architect Goals Time Frame: Nov 06, 2018 Eating (FIM): 6 Eating (QC): 6 Groomin Oral Hygiene (QC): 6 Bathing(FIM): 5 Shower/Bathe Self (QC): 5 Upper Body Dressing(FIM): 6 Upper Body Dressing (QC): 6 Lower Body Dressing(FIM): 5 Lower Body Dressing (QC): 5 On/Off Footwear (QC): 5 Toileting(FIM): 6 Toileting Hygiene (QC): 6 Toilet/Commode Transfer(FIM): 6 Toilet/Commode Transfer (QC): 6 Shower Transfer(FIM): 5 Additional Goals: 1-Demonstrate ADL Tasks, 2-Verbalize Understanding, 3- ImproveStrength/Morgan 1=Demonstrate adherence to instructed precautions during ADL tasks. 2=Patient will verbalize/demonstrate understanding of assistive devices/modifications for ADL. 3=Patient will improve strength/tolerance for activity to enable patient to perform ADL's. OT Education/Plan Discharge Recommendations Plan/Recommendations: Continue POC Treatment Plan/Plan of Care Patient would benefit from OT for education, treatment and training to promote independence in ADL's, mobility, safety and/or upper extremity function for ADL's. Plan of Care: ADL Retraining, Functional Mobility, Group Exercise/Act as Ind, UE Funct Exercise/Act Treatment Duration: Nov 06, 2018 Frequency: At least 5 of 7 days/Wk (IRF) Estimated Hrs Per Day: 1.5 hours per day Agreement: Yes Rehab Potential: Fair Time/GCodes Start Time: 14:15 Stop Time: 14:45 Total Time Billed (hr/min): 30 Billed Treatment Time 1 visit, ADLx2(30minutes) ZEENAT JOSE OT Oct 16, 2018 15:06
[2018-10-16 18:00] VITALS: BP 122/68
[2018-10-16] MEDS: SENNA W/DOCUSATE (SENOKOT S) TABLET PO SCH (20:01)
[2018-10-16] MEDS ORDERED: SENNA W/DOCUSATE (SENOKOT S) TABLET PO SCH (21:00)
[2018-10-17 05:25] VITALS: BP 119/77
[2018-10-17 05:48] LABS: BASOPHILS % (AUTO) 0 % (0-10); EOSINOPHILS # (AUTO) 0.2 10^3/uL (0.0-0.3); EOSINOPHILS % (AUTO) 2 % (0-10); HEMATOCRIT 35 % (35-52); HEMOGLOBIN 11.6 G/DL (11.5-16.0); LYMPHOCYTES # (AUTO) 1.5 X 10^3 (1.0-4.0); LYMPHOCYTES % (AUTO) 19 % (12-44); MEAN CORPUSCULAR HEMOGLOBIN 29 PG (25-34); MEAN CORPUSCULAR HGB CONC 33 G/DL (32-36); MEAN CORPUSCULAR VOLUME 89 FL (80-99); MEAN PLATELET VOLUME 10.7 FL (7.4-10.4); MONOCYTES # (AUTO) 0.6 X 10^3 (0.0-1.0); MONOCYTES % (AUTO) 7 % (0-12); NEUTROPHILS # (AUTO) 5.6 X 10^3 (1.8-7.8); NEUTROPHILS % (AUTO) 72 % (42-75); PLATELET COUNT 237 10^3/uL (130-400); RED CELL DISTRIBUTION WIDTH 12.6 % (10.0-14.5); WHITE BLOOD COUNT 7.8 10^3/uL (4.3-11.0)
[2018-10-17 06:08] LABS: ALANINE AMINOTRANSFERASE 12 U/L (0-55); ALBUMIN 3.5 GM/DL (3.2-4.5); ALKALINE PHOSPHATASE 96 U/L (40-136); BILIRUBIN,TOTAL 0.6 MG/DL (0.1-1.0); BUN/CREATININE RATIO 14; CALCIUM 9.2 MG/DL (8.5-10.1); CARBON DIOXIDE 23 MMOL/L (21-32); CHLORIDE 104 MMOL/L (98-107); GFR ESTIMATED > 60; GLUCOSE 108 MG/DL (70-105); SODIUM 137 MMOL/L (135-145); TOTAL PROTEIN 7.3 GM/DL (6.4-8.2)
[2018-10-17] MEDS ORDERED: ENOXAPARIN 40 MG/0.4 ML (LOVENOX) SYR SC SCH (08:00)
[2018-10-17] MEDS ORDERED: ROSU10TA22 PO (09:15)
[2018-10-17] MEDS ORDERED: METO-370 PO (09:15)
[2018-10-17] MEDS ORDERED: MECL-106 PO (09:15)
--- NOTE | 2018-10-17 09:16 | NUR ---
REVIEWED THE MED REC IT WAS REPORTED UPON ADMISSION TO 4TH FLOOR. NOTE THE FOLLOWING CHANGES WERE MADE WHEN THE PATIENT DISCHARGED TO REHAB THAT ARE NOT CURRENTLY REFLECTED ON THE HOME MED REC: NEW: LOVENOX 40MG DAILY HYDROCODONE 5-325MG 1Q6H PRN METOPROLOL SUCCINATE 25MG DAILY SENNA S BID STOP TAKING: METOPROLOL SUCCINATE 50MG DAILY
--- NOTE | 2018-10-17 09:29 | PM&R Progress Note ---
Subjective HPI/CC On Admission Date Seen by Provider: Oct 17, 2018 Time Seen by Provider: 09:00 Chief complaint: Debility following right hip fracture. HPI: This is a 73yo oriental female clinic Pt of Dr. Sweeney who has a history of chronic vertigo and multiple falls, most recently was a subdural hematoma of which I took care of her during a weekend that Dr. 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 Reynolds that was uncomplicated. Her bowels reported to be moving per Pt but unsure if she understood the question. She doesn't appear to have any confusion, she does understand Azeri but there is still a language barrier there, her prior level of function was ambulation without the use of assisted devices and the plan would be to go to assisted living at discharge and Pt will be closely monitored during inpatient rehab stay and to gain confidence and become successful and discharge. Subjective/Events-last exam Labs look good Up every hour to void last night but doing much better now BM yesterday Got out of bed on her own in a chair last night so major fall risk so will put a bed alarm on her Incision is slightly red Pulled her IV out last night also Constantly talking about the fact that her is completely dependent on her now taken care of at [facility] but cannot afford it and she is working that out but talks about that to everyone who enters the room Checked meds and labs PCP will continue to see the patient Conferred with RN Reviewed therapy notes Review of Systems General: Fatigue Pulmonary: Dyspnea Musculoskeletal: leg pain Neurological: Confusion Objective Exam Vital Signs Vital Signs Date Time Temp Pulse Resp B/P (MAP) Pulse Ox O2 Delivery O2 Flow Rate FiO2 10/17/18 17:04 36.8 78 18 112/65 99 Room Air Capillary Refill : Less Than 3 Seconds General Appearance: WD/WN, Anxious, Chronically ill, Mild Distress HEENT: PERRL/EOMI, TMs Normal, Normal ENT Inspection Neck: Full Range of Motion, Normal Inspection, Non Tender Respiratory: Chest Non Tender, Lungs Clear, Normal Breath Sounds, No Accessory Muscle Use, No Respiratory Distress Cardiovascular: Regular Rate, Rhythm, No Edema, No Gallop, No JVD, No Murmur, Normal Peripheral Pulses Gastrointestinal: Normal Bowel Sounds, No Organomegaly, No Pulsatile Mass, Non Tender, Soft Back: Normal Inspection, No CVA Tenderness, No Vertebral Tenderness Extremity: Normal Capillary Refill, Normal Inspection, No Calf Tenderness, Other (decreased ROM right leg) Neurologic/Psychiatric: Alert, Oriented x3, No Motor/Sensory Deficits, Normal Mood/Affect, leather tooler II-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 FIM Transfers Therapy Code Descriptions/Definitions Functional [place] Measure: 0=Not Assessed/NA 4=Minimal Assistance 1=Total Assistance 5=Supervision or Setup 2=Maximal Assistance 6=Modified [place] 3=Moderate Assistance 7=Complete [place] Therapy Quality Codes: 6 Independent with activity with or without an assistive device 5 Patient requires set up or clean up by helper. Patient completes activity by themselves 4 Supervision or touching assist (CGA). [place] provide cues , steadying assist 3 The helper provides less than half the effort to complete the activity 2 The helper provides more than half the effort to complete the activity 1 Dependent. The helper does all the effort to complete an activity 7 Patient refused to complete or attempt activity 9 The patient did not perform the activity before the current illness or injury 88 Not attempted due to Medical conditions or safety concerns Transfers (B, C, W/C) (FIM): 4 Scootin Rollin Roll Left to Right (QC): 4 Supine to/from Sit: 4 Sit to/from Stand: 4 Sit to Lying (QC): 4 Sit to Stand (QC): 4 Chair/Btp-ku-Ajktz Xfer(QC): 4 Car Transfer (QC): 4 Gait Training Does the Patient Walk?: Yes Gait (FIM): 1 Distance (FIM): 1=up to 49 ft Distance: 8' Walk 10 feet (QC): 4 Walk 50 ft with 2 Turns(QC): 88 Walk 150 ft (QC): 88 Walking 10ft/uneven surface-QC: 4 Gait Level of Assist: 4 Gait Persons Needed: 1 Gait Assistive Device: FWW Stair Training Stairs (FIM): 1 #of Steps: 1 1 Step (curb) (QC): 4 4 Steps (QC): 88 12 Steps (QC): 88 Level of Assist: 4 ADL-Treatment Feedin Eating (QC): 5 Groomin Oral Hygiene (QC): 4 Bathin Bathing Location: L Arm, R Arm, L Upper Leg, R Upper Leg, Chest, Abdomen, Perineal Area Shower/Bathe Self (QC): 3 On/Off Footwear (QC): 1 Toiletin Toileting Hygiene (QC): 3 Toilet/Commode Transfer: 4 Toilet Transfer (QC): 3 Assessment/Plan Assessment and Plan Assess & Plan/Chief Complaint Plan: Pain control Monitor BP and HR Lovenox Monitor labs IRF protocol AL at DC Monitor confusion (1) Closed right hip fracture (2) Fall Status: Acute (3) Hip fracture, right (4) Dizziness Status: Acute (5) SAH (subarachnoid hemorrhage) Status: Acute (6) Anemia (7) Hyperlipidemia (8) Hypertension (9) Chronic vertigo Status: Acute CORBIN WINTER DO Oct 17, 2018 09:29
[2018-10-17] MEDS: ENOXAPARIN 40 MG/0.4 ML (LOVENOX) SYR SC SCH (09:55)
[2018-10-17] MEDS: SENNA W/DOCUSATE (SENOKOT S) TABLET PO SCH ×3 (09:58→21:00)
--- NOTE | 2018-10-17 10:02 | NUR ---
HARDWARE ENGINEERING MANAGER met with patient to complete initial assessment. Patient is known to this HARDWARE ENGINEERING MANAGER as she previously completed a ARU stay in 2018. Patient was alert and oriented, but difficult to fully assess due to language barrier, patient perseverated on the need to discharge to provide care for her . Per information received, patient's spouse is currently at [facility] as patient was his primary caregiver due to diagnosis of dementia. Patient resides with spouse in [place]. The home is one level with two steps at the entrance without a handrail. Patient admitted to ARU with R hip fracture following a fall. Patient has a history of falls, due to previous admission of CVA and fall history, it was recommended that patient and spouse admit to NURSING HOME at previous discharge. Patient declined this option, but reluctantly agreed to pay for home care services through [employer]. HARDWARE ENGINEERING MANAGER was informed post discharge that patient then declined services once she returned home. HARDWARE ENGINEERING MANAGER received visit from Rosana Nova from [facility] this day in regards to an open hotline for safety concerns in the home. Prior to most recent admission, patient utilized a FWW for ambulation. Patient identifies a neighbor, Anabelle as a contact, but does not have her number at this time. Verified PCP as Dr. Sweeney. Patient has [facility] and [employer] for insurance coverage and utilizes [facility] for local pharmacy needs.. HARDWARE ENGINEERING MANAGER reviewed typical rehab length of stay and weekly team conferences with patient, she expressed no concerns; however, does voice the desire to discharge [facility]. HARDWARE ENGINEERING MANAGER explained the need for further strength before returning home. HARDWARE ENGINEERING MANAGER will follow for appropriate discharge needs.
--- NOTE | 2018-10-17 10:29 | Physical Therapy Daily Note ---
PT Daily Note-Current Subjective up in chair , agrees to Rx. Nursing states they plan to put chair alarm on her after she leaves for Rx as she has been getting up on her own through the night. Pt. c/o she has 9/10 pain in hip at this time . Better with rest , worse with gait. Pt. [id number], " I am 73 yrs old, my is in another place and I hope to before next yr." Apparently is in NH or Asst living Pain Numeric Pain Scale: 10-Worst Possible Pain Location: Right Location Body Site: Hip Pain Description: Ache Mental Status Patient Orientation: Person, Situation Transfers Therapy Code Descriptions/Definitions Functional [place] Measure: 0=Not Assessed/NA 4=Minimal Assistance 1=Total Assistance 5=Supervision or Setup 2=Maximal Assistance 6=Modified [place] 3=Moderate Assistance 7=Complete [place] Therapy Quality Codes: 6 Independent with activity with or without an assistive device 5 Patient requires set up or clean up by helper. Patient completes activity by themselves 4 Supervision or touching assist (CGA). [place] provide cues , steadying assist 3 The helper provides less than half the effort to complete the activity 2 The helper provides more than half the effort to complete the activity 1 Dependent. The helper does all the effort to complete an activity 7 Patient refused to complete or attempt activity 9 The patient did not perform the activity before the current illness or injury 88 Not attempted due to Medical conditions or safety concerns Transfers (B, C, W/C) (FIM): 4 Scootin Rollin Supine to/from Sit: 4 Sit to/from Stand: 5 Bed to/from Chair: 5 pt. needs assist right hip in out bed and has increased pain Weight Bearing Right Lower Extremity: Right Weight Bearing/Tolerated Left Lower Extremity: Left Full Weight Bearing Gait Training Does the Patient Walk?: Yes Gait (FIM): 4 Distance (FIM): 3=150 ft (155x2) Gait Level of Assist: 4 Gait Persons Needed: 1 Gait Assistive Device: FWW Pt. with very antalgic gait and difficulty advancing RLE with heavy wt bearing on LE Exercises Supine Ex: Ankle pumps, Quad Set, Heel Slides, Scooting, Hip abd/add Supine Reps: 15 Seated Therapy Exercises: Ankle pumps, Sit to stand, Long arc quads, Hip abd/add Seated Reps: 12 NuStep Minutes: 8 NuStep Workload: 4 Assessment Current Status: Good Progress difficulty communicating secondary to language barrier PT Hot Plate Plywood Press Feeder Goals Hot Plate Plywood Press Feeder Goals PT Fpc Goals Time Frame: Nov 10, 2018 Transfers (B,C,W/C) (FIM): 6 Sit to Lying (QC): 6 Lying-Sitting on Side/Bed(QC): 6 Sit to Stand (QC): 6 Rollin Roll Left to Right (QC): 6 Chair/Bis-dm-Exbjb Xfer(QC): 6 Car Transfer (QC): 6 Does the Patient Walk: Yes Gait (FIM): 6 Gait distance (FIM): 3=150 ft Distance: 250' Walk 10 feet (QC): 6 Walk 10ft-Uneven Surface(QC): 6 Walk 50ft with 2 Turns (QC): 6 Walk 150 ft (QC): 6 Gait Level of Assist: 6 Gait Assistive Device: FWW Stairs (FIM): 2 # of Steps: 4 1 Step (curb) (QC): 5 4 Steps (QC): 5 12 Steps (QC): 9 Stairs Level Of Assist: 5 Picking up an Object (QC): 5 PT Plan Treatment/Plan Treatment Plan: Continue Plan of Care Treatment Plan: Bed Mobility, Education, Functional Activity [place], Functional Strength, Gait, Safety, Therapeutic Exercise, Transfers Treatment Duration: Nov 10, 2018 Frequency: At least 5 of 7 days/Wk (IRF) Estimated Hrs Per Day: 1.5 hours per day Patient and/or Family Agrees t: Yes Safety Risks/Education Patient Education: Gait Training, Transfer Techniques, Correct Positioning, Dis ease Process, Safety Issues Teaching Recipient: Patient Teaching Methods: Demonstration, Discussion Response to Teaching: Verbalize Understanding, Return Demonstration, Reinforcement Needed Time/GCodes Time In: 800 Time Out: 900 Total Billed Treatment Time: 60 Total Billed Treatment 1,GT25m,FA20m,EX15m VICENTA CARPIO AVIONICS MECHANIC Oct 17, 2018 10:29
--- NOTE | 2018-10-17 12:53 | Occupational Ther Daily Note ---
OT Current Status-Daily Note Subjective Pt sitting in chair, agrees to treatment. Pt reports pain in right hip, but does not rate. Mental Status/Objective Therapy Code Descriptions/Definitions Functional [place] Measure: 0=Not Assessed/NA 4=Minimal Assistance 1=Total Assistance 5=Supervision or Setup 2=Maximal Assistance 6=Modified [place] 3=Moderate Assistance 7=Complete [place] ADL-Treatment Pt would like to shower today. Sit to stand from chair with supervision. Gait to restroom with FWW. Transfer to walk in shower with min assist and skilled cues for safety. Seated bathing completed using hand held shower. Pt able to wash upper body, bilateral upper legs, shalonda area, and left lower leg. Assist to wash right lower leg and buttocks. Pt requires encouragement to increase independence. Don pullover with SBA. Pt required mod assist overall for LE dressing. Stood with min assist for balance during pant hike. Pt able to don left sock, assist for right sock. Education provided regarding use of sock aid. Pt able to don sock with min assist using sock aid. Pt combed hair with SBA. Increased time required for ADL and mobility tasks. Pt has decreased activity tolerance and requires occasional rest breaks throughout treatment. Pt requests to remain in chair after session. Needs met and chair alarm in place. Therapy Code Descriptions/Definitions Functional [place] Measure: 0=Not Assessed/NA 4=Minimal Assistance 1=Total Assistance 5=Supervision or Setup 2=Maximal Assistance 6=Modified [place] 3=Moderate Assistance 7=Complete [place] Therapy Quality Codes: 6 Independent with activity with or without an assistive device 5 Patient requires set up or clean up by helper. Patient completes activity by themselves 4 Supervision or touching assist (CGA). [place] provide cues , steadying assist 3 The helper provides less than half the effort to complete the activity 2 The helper provides more than half the effort to complete the activity 1 Dependent. The helper does all the effort to complete an activity 7 Patient refused to complete or attempt activity 9 The patient did not perform the activity before the current illness or injury 88 Not attempted due to Medical conditions or safety concerns Grooming (FIM): 5 Bathing (FIM): 4 Shower/Bathe Self (QC): 3 Upper Body (FIM): 5 Upper Body Dressing (QC): 4 Lower Body Dressing (FIM): 3 Lower Body Dressing (QC): 3 Shower Transfer(FIM): 4 Education OT Patient Education: Modified ADL techniques Teaching Recipient: Patient Teaching Methods: Demonstration, Discussion Response to Teaching: Reinforcement Needed OT Short Term Goals Short Term Goals Time Frame: Oct 23, 2018 Bathing(FIM): 4 Upper Body Dressing(FIM): 5 Lower Body Dressing(FIM): 4 Toilet/Commode Transfer(FIM): 4 (CGA) Additional Short Term Goals: 1-Demonstrate ADL Tasks, 2-Verbalize Understanding, 3-ImproveStrength/Morgan 1=Demonstrate adherence to instructed precautions during ADL tasks. 2=Patient will verbalize/demonstrate understanding of assistive devices/modifications for ADL. 3=Patient will improve strength/tolerance for activity to enable patient to perform ADL's. OT Cleaning Matron Goals Cleaning Matron Goals Time Frame: Nov 06, 2018 Eating (FIM): 6 Eating (QC): 6 Groomin Oral Hygiene (QC): 6 Bathing(FIM): 5 Shower/Bathe Self (QC): 5 Upper Body Dressing(FIM): 6 Upper Body Dressing (QC): 6 Lower Body Dressing(FIM): 5 Lower Body Dressing (QC): 5 On/Off Footwear (QC): 5 Toileting(FIM): 6 Toileting Hygiene (QC): 6 Toilet/Commode Transfer(FIM): 6 Toilet/Commode Transfer (QC): 6 Shower Transfer(FIM): 5 Additional Goals: 1-Demonstrate ADL Tasks, 2-Verbalize Understanding, 3- ImproveStrength/Morgan 1=Demonstrate adherence to instructed precautions during ADL tasks. 2=Patient will verbalize/demonstrate understanding of assistive devices/modifications for ADL. 3=Patient will improve strength/tolerance for activity to enable patient to perform ADL's. OT Education/Plan Discharge Recommendations Plan/Recommendations: Continue POC Treatment Plan/Plan of Care Patient would benefit from OT for education, treatment and training to promote independence in ADL's, mobility, safety and/or upper extremity function for ADL's. Plan of Care: ADL Retraining, Functional Mobility, Group Exercise/Act as Ind, UE Funct Exercise/Act Treatment Duration: Nov 06, 2018 Frequency: At least 5 of 7 days/Wk (IRF) Estimated Hrs Per Day: 1.5 hours per day Agreement: Yes Rehab Potential: Fair Time/GCodes Start Time: 09:00 Stop Time: 10:00 Total Time Billed (hr/min): 60 Billed Treatment Time 1 visit, ADLx4(60minutes) ZEENAT JOSE OT Oct 17, 2018 12:53
--- NOTE | 2018-10-17 13:28 | Occupational Ther Daily Note ---
OT Current Status-Daily Note Subjective Pt in bed, states she is tired, but agrees to therapy with encouragement. Pt reports 7/10 pain in right hip. Pt mentions several times throughout treatment, states she needs to see or talk to him. Discussed with social services designee. Mental Status/Objective Therapy Code Descriptions/Definitions Functional [place] Measure: 0=Not Assessed/NA 4=Minimal Assistance 1=Total Assistance 5=Supervision or Setup 2=Maximal Assistance 6=Modified [place] 3=Moderate Assistance 7=Complete [place] ADL-Treatment Pt supine to sit with min assist for right LE. Assist to don shoes. Sit to stand with supervision. Gait to restroom with FWW, slow pace. Pt transferred to toilet with CGA and cues for safety, using grab bar for balance. Pt able to complete toileting hygiene, requires CGA for balance during clothing management. Pt stood at sink to wash hands with SBA for balance. Pt ambulated to chair with FWW, cues for safety and sequencing. Pt requested assist to order lunch, this was completed. Pt moves slowly and requires increased time for ADLs and mobility. Pt sitting in chair with chair alarm in place after session. Therapy Code Descriptions/Definitions Functional [place] Measure: 0=Not Assessed/NA 4=Minimal Assistance 1=Total Assistance 5=Supervision or Setup 2=Maximal Assistance 6=Modified [place] 3=Moderate Assistance 7=Complete [place] Therapy Quality Codes: 6 Independent with activity with or without an assistive device 5 Patient requires set up or clean up by helper. Patient completes activity by themselves 4 Supervision or touching assist (CGA). [place] provide cues , steadying assist 3 The helper provides less than half the effort to complete the activity 2 The helper provides more than half the effort to complete the activity 1 Dependent. The helper does all the effort to complete an activity 7 Patient refused to complete or attempt activity 9 The patient did not perform the activity before the current illness or inj ury 88 Not attempted due to Medical conditions or safety concerns Toileting (FIM): 4 Toileting Hygiene (QC): 4 Toilet/Commode Transfer (FIM): 4 Toilet Transfer (QC): 4 OT Short Term Goals Short Term Goals Time Frame: Oct 23, 2018 Bathing(FIM): 4 Upper Body Dressing(FIM): 5 Lower Body Dressing(FIM): 4 Toilet/Commode Transfer(FIM): 4 (CGA) Additional Short Term Goals: 1-Demonstrate ADL Tasks, 2-Verbalize Understanding, 3-ImproveStrength/[place] 1=Demonstrate adherence to instructed precautions during ADL tasks. 2=Patient will verbalize/demonstrate understanding of assistive devices/modifications for ADL. 3=Patient will improve strength/tolerance for activity to enable patient to perform ADL's. OT Retirement Goals Chief Business Officer Goals Time Frame: Nov 06, 2018 Eating (FIM): 6 Eating (QC): 6 Groomin Oral Hygiene (QC): 6 Bathing(FIM): 5 Shower/Bathe Self (QC): 5 Upper Body Dressing(FIM): 6 Upper Body Dressing (QC): 6 Lower Body Dressing(FIM): 5 Lower Body Dressing (QC): 5 On/Off Footwear (QC): 5 Toileting(FIM): 6 Toileting Hygiene (QC): 6 Toilet/Commode Transfer(FIM): 6 Toilet/Commode Transfer (QC): 6 Shower Transfer(FIM): 5 Additional Goals: 1-Demonstrate ADL Tasks, 2-Verbalize Understanding, 3- ImproveStrength/M[place] 1=Demonstrate adherence to instructed precautions during ADL tasks. 2=Patient will verbalize/demonstrate understanding of assistive devices/modifications for ADL. 3=Patient will improve strength/tolerance for activity to enable patient to perform ADL's. OT Education/Plan Discharge Recommendations Plan/Recommendations: Continue POC Treatment Plan/Plan of Care Patient would benefit from OT for education, treatment and training to promote independence in ADL's, mobility, safety and/or upper extremity function for ADL's. Plan of Care: ADL Retraining, Functional Mobility, Group Exercise/Act as Ind, UE Funct Exercise/Act Treatment Duration: Nov 06, 2018 Frequency: At least 5 of 7 days/Wk (IRF) Estimated Hrs Per Day: 1.5 hours per day Agreement: Yes Rehab Potential: Fair Time/GCodes Start Time: 11:30 Stop Time: 12:00 Total Time Billed (hr/min): 30 Billed Treatment Time 1 visit, ADLx2(30minutes) ZEENAT JOSE OT Oct 17, 2018 13:28
--- NOTE | 2018-10-17 14:00 | Physical Therapy Daily Note ---
PT Daily Note-Current Subjective Pt. wants therapies this afternoon, still c/o pain in left hip at 7-8/10. Pain increases with TRFs in out bed Pain Numeric Pain Scale: 7 Location: Right Location Body Site: Hip Pain Description: Stabbing Mental Status Patient Orientation: Person, Place, Time, Situation Transfers Therapy Code Descriptions/Definitions Functional [place] Measure: 0=Not Assessed/NA 4=Minimal Assistance 1=Total Assistance 5=Supervision or Setup 2=Maximal Assistance 6=Modified [place] 3=Moderate Assistance 7=Complete [place] Therapy Quality Codes: 6 Independent with activity with or without an assistive device 5 Patient requires set up or clean up by helper. Patient completes activity by themselves 4 Supervision or touching assist (CGA). [place] provide cues , steadying assist 3 The helper provides less than half the effort to complete the activity 2 The helper provides more than half the effort to complete the activity 1 Dependent. The helper does all the effort to complete an activity 7 Patient refused to complete or attempt activity 9 The patient did not perform the activity before the current illness or injury 88 Not attempted due to Medical conditions or safety concerns Transfers (B, C, W/C) (FIM): 4 Scootin Rollin Supine to/from Sit: 4 Sit to/from Stand: 5 requires assist with right LE into bed Weight Bearing Right Lower Extremity: Right Weight Bearing/Tolerated Left Lower Extremity: Left Full Weight Bearing Gait Training Does the Patient Walk?: Yes Gait (FIM): 5 Distance (FIM): 3=150 ft (175) Gait Level of Assist: 5 Gait Persons Needed: 1 Gait Assistive Device: FWW needs instruction and encouragement for safe gait Exercises Supine Ex: Ankle pumps, Quad Set, Glut sets, Heel Slides, Short Arc Quads, Scooting, Hip abd/add Supine Reps: 15 assistance for exercises ab ad, heel slide Assessment Current Status: Good Progress pain sensitive, seems discouraged PT Snf Goals Pellet Post Inspector Goals PT Snf Goals Time Frame: Nov 10, 2018 Transfers (B,C,W/C) (FIM): 6 Sit to Lying (QC): 6 Lying-Sitting on Side/Bed(QC): 6 Sit to Stand (QC): 6 Rollin Roll Left to Right (QC): 6 Chair/Ppv-up-Llwme Xfer(QC): 6 Car Transfer (QC): 6 Does the Patient Walk: Yes Gait (FIM): 6 Gait distance (FIM): 3=150 ft Distance: 250' Walk 10 feet (QC): 6 Walk 10ft-Uneven Surface(QC): 6 Walk 50ft with 2 Turns (QC): 6 Walk 150 ft (QC): 6 Gait Level of Assist: 6 Gait Assistive Device: FWW Stairs (FIM): 2 # of Steps: 4 1 Step (curb) (QC): 5 4 Steps (QC): 5 12 Steps (QC): 9 Stairs Level Of Assist: 5 Picking up an Object (QC): 5 PT Plan Treatment/Plan Treatment Plan: Continue Plan of Care Treatment Plan: Bed Mobility, Education, Functional Activity [place], Functional Strength, Gait, Safety, Therapeutic Exercise, Transfers Treatment Duration: Nov 10, 2018 Frequency: At least 5 of 7 days/Wk (IRF) Estimated Hrs Per Day: 1.5 hours per day Patient and/or Family Agrees t: Yes Safety Risks/Education Patient Education: Gait Training, Transfer Techniques, Correct Positioning, Disease Process, Safety Issues Teaching Recipient: Patient Teaching Methods: Demonstration, Discussion Response to Teaching: Verbalize Understanding, Return Demonstration, Reinforcement Needed Time/GCodes Time In: 1230 Time Out: 1300 Total Billed Treatment Time: 30 Total Billed Treatment 1,GT15m,FA15m VICENTA CARPIO PTA Oct 17, 2018 14:00
[2018-10-17] MEDS: HYDROcodone/APAP 5 MG/325 MG (LORTAB) TAB PO PRN (14:39)
--- NOTE | 2018-10-17 15:46 | ST Cognitive Linguistic Eval ---
Speech Evaluation-General Medical Diagnosis right hip fracture Onset Date: Oct 16, 2018 Therapy Diagnosis Therapy Diagnosis: Cognitive-communication Precautions Precautions: Fall Precautions/Isolations: Fall Prevention, Standard Precautions Referral Referring Physician: Dr. Barker Reason for Referral: Evaluation/Treatment Medical History Pertinent Medical History: Dementia, GERD Dementia, GERD Current History right hip fracture Reviewed History: Yes Social History Home: Single Level Current Living Status: Spouse Speech PLF-Current Status Prior Level of Function The patient is uncertain about returning home due to recent falls and her 's recent admit to SNF, leaving her home alone to care for herself. Subjective The patient was cooperative with the cognitive assessment, however she was adamant that she would not work with Speech Therapy. Language Eval: Auditory Comprehends Simple Yes/No Ques: Functional Indent/Objects Multiple [place]: Functional Ident/Pics in [place]: Functional Follows 1-Step Commands: Mild Follows Complex Directions: Mild Follows General Conversations: Functional Language Eval: Verbal Language Completes Spontaneous Greeting: Functional Produces Auto, Serial Info: Functional Imitates Simple Words/Phrases: Functional Word Finding: Mild Requests Basic Needs: Functional States Basic Personal Info: Functional Expresses Complex Ideas: Mild Objective Cognitive Domain Attention: Mild Memory: Mild Problem Solving: Moderate Executive Functions: Mild Visuospatial Skills: WNL Composite Severity Rating: WNL Clock Drawing Severity Rating: WNL Objective Formal/Standardized Tests [facility] Mental Status ([facility]) Results , Mild Neurocognitive Disorder Oral Motor/Speech Production Within Function Limits for Syriac as a second language. Mandarin is her [place] language Impression The patient is a pleasant 73 year old woman who has been a patient in the FLU previously from a fall. She was given the SLUMS with results indicating some cognitive deficits. She is adamant that she will not work with Speech Therapy because she does not feel as though she needs it. The patient will not receive skilled ST at this time. Communication/Social Cognition Comprehension: 6 Expression: 6 Social Interaction: 6 Problem Solvin Memory: 5 Speech Patient Assess Expression of Ideas/Wants: Exhibits (3) Understanding Verbal Content: Usually Understands (3) Brief Interview-Mental Status: Yes Repetition of Three Words: Three (3) Temporal Orientation: Year: Correct (3) Temporal Orientation: Month: Accurate within 5 days(2) Temporal Orientation: Day: Correct (1) Recall : Wear to say "Sock": Yes,after cueing (1) Recall : Color: No, could not recall (0) Recall : Bed: No, could not recall (0) Memory/Recall Ability: Current season, That he or she is in a hsp/hsp unit Speech-Plan Patient/Family Goals Patient/Family Goals: The patient is unsure of where she should go after rehab. Her was recently placed in a SNF due to dementia. This means she would have to live alone and doesn't know if she will be able to care for herself. Treatment Plan Speech Therapy Treatment Plan: Continue Plan of Care The patient will not receive skilled ST at this time per patient request. Treatment Duration: Oct 17, 2018 Frequency: 1 time per week Estimated Hrs Per Day: .25 hour per day Rehab Potential: Fair Barriers to Learning: Patient has cognitive deficits which interfere with her ability to care for herself safely. Pt/Family Agrees to Plan: Yes Safety Risks/Education Teaching Recipient: Patient Teaching Methods: Discussion Response to Teaching: Verbalize Understanding Education Topics Provided: Safety within her room and her cognitive deficits Time Speech Therapy Time In: 10:00 Speech Therapy Time Out: 10:15 Total Billed Time: 15 Billed Treatment Time 1, TEDDY Zafar Oct 17, 2018 15:46
[2018-10-17 17:04] VITALS: BP 112/65
--- NOTE | 2018-10-17 17:42 | Progress Note ---
Subjective Date Seen by a Provider: Oct 17, 2018 Time Seen by a Provider: 12:45 Subjective/Events-last exam Fwup right compacted femoral fracture, HTN, dizziness, confusion. Doing PT. Objective Exam Vital Signs Date Time Temp Pulse Resp B/P (MAP) Pulse Ox O2 Delivery O2 Flow Rate FiO2 10/17/18 17:04 36.8 78 18 112/65 99 Room Air 10/17/18 05:25 36.8 81 16 119/77 96 Room Air 10/16/18 21:00 98 Room Air 10/16/18 19:00 86 10/16/18 18:00 36.8 78 18 122/68 98 Room Air I & O 10/17/18 07:00 Intake Total 925 ml Balance 925 ml Capillary Refill : Less Than 3 Seconds General Appearance: No Apparent Distress Neck: Supple Respiratory: Lungs Clear Cardiovascular: Regular Rate, Rhythm Extremity: Non Tender, No Calf Tenderness, No Pedal Edema Neurologic/Psychiatric: Alert Skin: Warm/Dry (right hip dressing dry and in place) Results Lab Laboratory Tests 10/17/18 05:25: White Blood Count 7.8, Red Blood Count 3.96L, Hemoglobin 11.6, Hematocrit 35, Mean Corpuscular Volume 89, Mean Corpuscular Hemoglobin 29, Mean Corpuscular Hemoglobin Concent 33, Red Cell Distribution Width 12.6, Platelet Count 237, Mean Platelet Volume 10.7H, Neutrophils (%) (Auto) 72, Lymphocytes (%) (Auto) 19, Monocytes (%) (Auto) 7, Eosinophils (%) (Auto) 2, Basophils (%) (Auto) 0, Neutrophils # (Auto) 5.6, Lymphocytes # (Auto) 1.5, Monocytes # (Auto) 0.6, Eosinophils # (Auto) 0.2, Basophils # (Auto) 0.0, Sodium Level 137, Potassium Level 4.0, Chloride Level 104, Carbon Dioxide Level 23, Anion Gap 10, Blood Urea Nitrogen 10, Creatinine 0.70, Estimat Glomerular Filtration Rate > 60, BUN/Creatinine Ratio 14, Glucose Level 108H, Calcium Level 9.2, Corrected Calcium 9.6, Total Bilirubin 0.6, Aspartate Amino Transf (AST/SGOT) 15, Alanine Aminotransferase (ALT/SGPT) 12, Alkaline Phosphatase 96, Total Protein 7.3, Albumin 3.5 Assessment/Plan Assessment/Plan Assess & Plan/Chief Complaint 1. Right Compacted Femoral Fracture--pain control, PT/OT 2. Hypertension--back on low dose metoprolol 3. Vertigo--high fall risk 4. Confusion/Dementia--worse this hospital stay Clinical Quality Measures DVT/VTE Risk/Contraindication: Risk Factor Score Per Nursin RFS Level Per Nursing on Admit: 4+=Very High NICANOR ESTRELLA DO Oct 17, 2018 17:42
--- NOTE | 2018-10-17 20:39 | Individualized Plan of Care ---
Individualized Plan of Care Rehab Nursing IPOC Order Admission Date Oct 16, 2018 at 11:52 Current Orders Orders Admission Order(Inpt,Obs,Sdc) (10/16/18 09:31) Vital Signs: Per Unit Policy ( 08,16,00 (10/16/18 09:31) Putty Mixer-Inpt Rehab Con (10/16/18:31) Rehab Nursing Orders-Ipoc (10/16/18:31) Physical Therapy Rehab Orders (10/16/18:31) Occupational Therapy Rehab Ord (10/16/18:31) Speech Therapy Rehab Orders (10/16/18:31) General/Regular (10/16/18 Lunch) Intake & Output 06,14,22 (10/16/18:31) Precautions (Aru) (10/16/18:31) Weekly Weight (Lbs) WEEK (10/16/18:31) Rehab-Intensity Of Therapy (10/16/18:31) Initiate Admission Nursing Pro .admission (10/16/18:31) Initiate Admission Nursing Pro .admission (10/16/18 09:31) Code/Resuscitation (10/16/18 13:39) Activity (10/16/18 13:39) Ambulate 08,12,20 (10/16/18 13:39) Incentive Spirometry (Nursing) Q2H (10/16/18 13:39) Initiate Admission Nursing Pro .admission (10/16/18 13:39) Notify Physician (10/16/18 13:39) Oxygen-Administer 07,19 (10/16/18 13:39) Sequential Compression Device .once (10/16/18 13:39) Forrest Hose 09,21 (10/16/18 13:39) Up With Assistance As Tolerate (10/16/18 13:39) Weight Bearing Status (10/16/18 13:39) Communication For Respiratory (10/16/18 13:39) Consult Internal Medicine (10/16/18 13:39) Oxygen Delivery Set Up (10/16/18 13:39) Rt Request For Service (10/16/18 13:39) Code/Resuscitation (10/16/18 13:42) Activity (10/16/18 13:42) Ambulate 08,12,20 (10/16/18 13:42) Catheter(Urinary) Discontinue (10/16/18 13:42) Iv Convert To Heplock (Order) (10/16/18 13:42) Incentive Spirometry (Nursing) Q2H (10/16/18 13:42) Initiate Admission Nursing Pro .admission (10/16/18 13:42) Sequential Compression Device .once (10/16/18 13:42) Forrest Leo , (10/16/18 13:42) General/Regular (10/16/18 Dinner) Enoxaparin Injection (Lovenox Injection) (10/17/18 08:00) Senna S Tablet (Senokot S Tablet) (10/16/18 21:00) Metoprolol Succinate (Xl) Tab (Toprol Xl (10/17/18 09:00) Rt Request For Service (10/16/18 13:42) Hydrocodone/Apap 5/325 Tablet (Lortab 5 (10/16/18 13:45) Fentanyl Injection (Sublimaze Injection (10/16/18 13:45) Patient Visit (10/16/18 ) Pt Eval Moderate Complexity (10/16/18 ) Functional Activities, Ea 15 (10/16/18 ) Cbc With Automated Diff (10/17/18 06:00) Comprehensive Metabolic Panel (10/17/18 06:00) Patient Visit (10/17/18 ) Gait Training, Ea 15 Min (10/17/18 ) Functional Activities, Ea 15 (10/17/18 ) Exercise Therap, Ea 15 Min (10/17/18 ) Patient Visit (10/17/18 ) Speech Sound Lang Comp (10/17/18 ) Rehab Nursing Orders: Ongoing Assess. of Cognitive Status, Ongoing Assess. of Function Status, Bladder Management, Bladder Training, Bowel Management, Disease Management & Educaiton, DVT Prophylaxis, Fluid/Electrolyte/Nutrition Mgmt, Infection Prevention, Management of Risks & Complications, Management of Skin Intergrity, Nutrition Management, Pain Management, Patient/Family Support, Safety Management Intensity of Therapy to be met Patient to be seen: Min.3h per day/5 of 7d PT IPOC Problem List: Activity Tolerance, Functional Strength, Safety, Balance, Gait, Transfer, Bed Mobility Treatment Plan: Continue Plan of Care Bed Mobility, Education, Functional Activity Morgan, Functional Strength, Gait, Safety, Therapeutic Exercise, Transfers Treatment Duration: Nov 10, 2018 Frequency: At least 5 of 7 days/Wk (IRF) Estimated Hrs Per Day: 1.5 hours per day OT IPOC Problems: Decreased Activ Tolerance, Decreased UE Strength, Dependent Transfers, Impaired I ADL's, Impaired Self-Care Skills OT Treatment, Training and Edu: Yes Plan of Care: ADL Retraining, Functional Mobility, Group Exercise/Act as Ind, UE Funct Exercise/Act Treatment Duration: Nov 06, 2018 Frequency: At least 5 of 7 days/Wk (IRF) Estimated Hrs Per Day: 1.[address] IPOC Speech Therapy Treatment Plan: Continue Plan of Care Treatment Duration: Oct 17, 2018 Frequency: 1 time per week Estimated Hrs Per Day: .25 hour per day Putty Mixer/Case Mgmt Putty Mixer/Case Managemen: Discharge Planning Dietitian/Ramp Service Employee Dietitian/Ramp Service Employee to monitor nutritional status and make changes and/or recommendations as needed and work with speech pathology on dietary upgrades as the occur. Physician IPOC Medical Issues being managed closely and that require the 24 hour availability of a physician: Medical management required due to recent hip fracture, major fall risk with history of subarachnoid bleed after a fall, and will require close monitoring Brief Synthesis of Preadmission Screen, Post-Admission Evaluation, and Therapy Evaluations: PT will focus on ambulation and managing the pain with assistive devices and fall prevention OT will focus on regaining independence with ADLs and helping lessen the burden for caregivers Medical Prognosis: Good Anticipated Length of Stay: 10 days CORBIN WINTER DO Oct 17, 2018 20:39
[2018-10-18] MEDS: HYDROcodone/APAP 5 MG/325 MG (LORTAB) TAB PO PRN (04:14)
[2018-10-18 06:30] VITALS: BP 105/72
--- NOTE | 2018-10-18 06:59 | Progress Note ---
[facility] 10/18/18 0659: Subjective Date Seen by a Provider: Oct 18, 2018 Time Seen by a Provider: 06:56 Subjective/Events-last exam vitals stable Pt slept well last night Has been voiding w/o difficulty Pt confused this AM, does not recognize me, took some time to convince her I saw her 2 days ago. Review of Systems HEENT: No Head Aches Cardiovascular: No: Chest Pain Gastrointestinal: No: Nausea, Vomiting, Diarrhea, Constipation Objective Exam Last Set of Vital Signs Vital Signs Date Time Temp Pulse Resp B/P (MAP) Pulse Ox O2 Delivery O2 Flow Rate FiO2 10/18/18 06:30 36.6 82 16 105/72 97 Room Air Capillary Refill : Less Than 3 Seconds I&O Intake and Output 10/18/18 00:00 Intake Total 1400 ml Balance 1400 ml Intake Oral 1400 ml # Voids 10 # Bowel Movements 1 General: Alert, Oriented X3, Cooperative, No Acute Distress HEENT: Atraumatic Lungs: Clear to Auscultation, Normal Air Movement Heart: Regular Rate, Normal S1, Normal S2, No Murmurs Assessment/Plan Assessment/Plan Assess & Plan/Chief Complaint Increased confusion Pain controlled continue to monitor cognition Fall risk Monitor Hemoglobin and RBC Clinical Quality Measures Admission Status Admission Dx Assessment Post op repair of Impaction fracture of proximal Right femur stable vitals Normal cognition Pain under control Motivated to work with PT Essential HTN Plan PT, OT @ inpatient rehab Pt does not appear depressed, however may benefit from psych eval both to have a baseline status and to assess her mood and her thoughts about her predictions regarding her Low dose metoprolol BM regimen DVT prophylaxis DVT/VTE Risk/Contraindication: Risk Factor Score Per Nursin RFS Level Per Nursing on Admit: 4+=Very High RADHA WINTER DO 10/19/18 1110: Supervisory-Addendum Brief Verification & Attestation Participated in pt care: history, MDM, physical Personally performed: exam, history, MDM, supervision of care Care discussed with: Medical Student Procedures: n/a Results interpretation: Verified all documentation Verification and Attestation of Medical Student E/M Service A medical student performed and documented this service in my presence. I reviewed and verified all information documented by the medical student and made modifications to such information, when appropriate. I personally performed the physical exam and medical decision making. Radha Winter, Oct 19, 2018,11:10 [facility] Oct 18, 2018 06:59 RADHA WINTER DO Oct 19, 2018 11:10
[2018-10-18 08:00] VITALS: BP 112/69
[2018-10-18] MEDS: ENOXAPARIN 40 MG/0.4 ML (LOVENOX) SYR SC SCH (08:01)
[2018-10-18] MEDS: SENNA W/DOCUSATE (SENOKOT S) TABLET PO SCH ×2 (08:01→20:38)
--- NOTE | 2018-10-18 09:30 | Occupational Ther Daily Note ---
OT Current Status-Daily Note Subjective Pt seen in room, up in recliner, agreeable to OT. No pain mentioned. Pt declined ADLs. Appearance Alert, cooperative Mental Status/Objective Therapy Code Descriptions/Definitions Functional [place] Measure: 0=Not Assessed/NA 4=Minimal Assistance 1=Total Assistance 5=Supervision or Setup 2=Maximal Assistance 6=Modified [place] 3=Moderate Assistance 7=Complete [place] ADL-Treatment At end of tx, pt needed to toilet. Skilled cues and physical assistance for walker and hand placement for toilet transfer. Pt managed clothing and hygiene with CGA but needed cues to straighten clothing after toileting. CGA, FWW to walk to sink to wash hands, with cues for hand and walker placement. CGA when backing away from sink with slight LOB. Pt walked CGA, FWW to bed and needed cues for hand and walker placement prior to sitting EOB. Able to get legs into bed without help and pull herself up in bed. pt left up in bed, 4 rails up, bed alarm on, all needs met. Therapy Code Descriptions/Definitions Functional [place] Measure: 0=Not Assessed/NA 4=Minimal Assistance 1=Total Assistance 5=Supervision or Setup 2=Maximal Assistance 6=Modified [place] 3=Moderate Assistance 7=Complete [place] Therapy Quality Codes: 6 Independent with activity with or without an assistive device 5 Patient requires set up or clean up by helper. Patient completes activity by themselves 4 Supervision or touching assist (CGA). [place] provide cues , steadying assist 3 The helper provides less than half the effort to complete the activity 2 The helper provides more than half the effort to complete the activity 1 Dependent. The helper does all the effort to complete an activity 7 Patient refused to complete or attempt activity 9 The patient did not perform the activity before the current illness or injury 88 Not attempted due to Medical conditions or safety concerns Grooming (FIM): 4 (CGA) Toileting (FIM): 4 (CGA, a little help for walker and hand placement. Cues to adjust clothing after toileting) Toilet/Commode Transfer (FIM): 4 (A little help for walker and hand placement) Other Treatment Pt needed cues for hand placement for sit to stand from recliner. walked CGA, FWW to therapy room, at least 100 feet. Needed multiple skilled cues for walker and hand placement for safe stand to sit in chair with arms. Completed 12 minutes bilat UE exercise on arm bike set at 15W resistance, with three brief recovery breaks. Also completed arc activity with 1/2 pound weight on each arm. All to strengthen UEs to help with transfers and ADLs. Pt needed skilled cues to get up safely from chair and walked with CGA, FWW back to room, with one time LOB when entering room, but self corrected. Education OT Patient Education: Modified ADL techniques, Progress toward Goal/Update tx plan, Purpose of tx/functional activities, Safety issues, Transfer techniques Teaching Recipient: Patient Teaching Methods: Demonstration, Discussion Response to Teaching: Verbalize Understanding, Return Demonstration, Reinforcement Needed OT Short Term Goals Short Term Goals Time Frame: Oct 23, 2018 Bathing(FIM): 4 Upper Body Dressing(FIM): 5 Lower Body Dressing(FIM): 4 Toilet/Commode Transfer(FIM): 4 (CGA) Additional Short Term Goals: 1-Demonstrate ADL Tasks, 2-Verbalize Un derstanding, 3-ImproveStrength/Morgan 1=Demonstrate adherence to instructed precautions during ADL tasks. 2=Patient will verbalize/demonstrate understanding of assistive devices/modifications for ADL. 3=Patient will improve strength/tolerance for activity to enable patient to perform ADL's. OT Fpc Goals Special Forces Engineer Sergeant Goals Time Frame: Nov 06, 2018 Eating (FIM): 6 Eating (QC): 6 Groomin Oral Hygiene (QC): 6 Bathing(FIM): 5 Shower/Bathe Self (QC): 5 Upper Body Dressing(FIM): 6 Upper Body Dressing (QC): 6 Lower Body Dressing(FIM): 5 Lower Body Dressing (QC): 5 On/Off Footwear (QC): 5 Toileting(FIM): 6 Toileting Hygiene (QC): 6 Toilet/Commode Transfer(FIM): 6 Toilet/Commode Transfer (QC): 6 Shower Transfer(FIM): 5 Additional Goals: 1-Demonstrate ADL Tasks, 2-Verbalize Understanding, 3- ImproveStrength/Morgan 1=Demonstrate adherence to instructed precautions during ADL tasks. 2=Patient will verbalize/demonstrate understanding of assistive devices/modifications for ADL. 3=Patient will improve strength/tolerance for activity to enable patient to perform ADL's. OT Education/Plan Discharge Recommendations Plan/Recommendations: Continue POC Treatment Plan/Plan of Care Patient would benefit from OT for education, treatment and training to promote independence in ADL's, mobility, safety and/or upper extremity function for ADL's. Plan of Care: ADL Retraining, Functional Mobility, Group Exercise/Act as Ind, UE Funct Exercise/Act Treatment Duration: Nov 06, 2018 Frequency: At least 5 of 7 days/Wk (IRF) Estimated Hrs Per Day: 1.5 hours per day Agreement: Yes Rehab Potential: Fair Time/GCodes Start Time: 09:00 Stop Time: 10:00 Total Time Billed (hr/min): 60 Billed Treatment Time visit, ADL 10 minutes, functional activity 20 minutes, exercise 30 minutes TARA LYON OT Oct 18, 2018 09:30
--- NOTE | 2018-10-18 09:37 | PM&R Progress Note ---
Subjective HPI/CC On Admission Date Seen by Provider: Oct 18, 2018 Time Seen by Provider: 09:00 Chief complaint: Debility following right hip fracture. HPI: This is a 73yo oriental female clinic Pt of Dr. Sweeney who has a history of chronic vertigo and multiple falls, most recently was a subdural hematoma of which I took care of her during a weekend that Dr. 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 Reynolds that was uncomplicated. Her bowels reported to be moving per Pt but unsure if she understood the question. She doesn't appear to have any confusion, she does understand Portuguese but there is still a language barrier there, her prior level of function was ambulation without the use of assisted devices and the plan would be to go to assisted living at discharge and Pt will be closely monitored during inpatient rehab stay and to gain confidence and become successful and discharge. Subjective/Events-last exam Very impulsive. Labs are okay. Psych evaluation will be discussed with PCP since all she likes to talk about is how she will in the next year. She appears to be confused but declined any speech therapy evaluation to objectively measure that. Continues to be a fall risk. Checked meds and labs PCP will continue to see the patient Conferred with RN Reviewed therapy notes Review of Systems Musculoskeletal: leg pain Neurological: Confusion Objective Exam Vital Signs Vital Signs Date Time Temp Pulse Resp B/P (MAP) Pulse Ox O2 Delivery O2 Flow Rate FiO2 10/19/18 06:04 36.5 75 18 119/74 99 Room Air Capillary Refill : Less Than 3 Seconds General Appearance: WD/WN, Anxious, Chronically ill, Mild Distress HEENT: PERRL/EOMI, TMs Normal, Normal ENT Inspection Neck: Full Range of Motion, Normal Inspection, Non Tender Respiratory: Chest Non Tender, Lungs Clear, Normal Breath Sounds, No Accessory Muscle Use, No Respiratory Distress Cardiovascular: Regular Rate, Rhythm, No Edema, No Gallop, No JVD, No Murmur, Normal Peripheral Pulses Gastrointestinal: Normal Bowel Sounds, No Organomegaly, No Pulsatile Mass, Non Tender, Soft Back: Normal Inspection, No CVA Tenderness, No Vertebral Tenderness Extremity: Normal Capillary Refill, Normal Inspection, No Calf Tenderness, Other (decreased ROM right leg) Neurologic/Psychiatric: Alert, Oriented x3, No Motor/Sensory Deficits, Normal Mood/Affect, welt edge rounder II-XII Norm as Tested, Disoriented Skin: Normal Color, Warm/Dry Lymphatic: No Adenopathy Results/Procedures Lab Patient resulted labs reviewed. FIM Transfers Therapy Code Descriptions/Definitions Functional [place] Measure: 0=Not Assessed/NA 4=Minimal Assistance 1=Total Assistance 5=Supervision or Setup 2=Maximal Assistance 6=Modified [place] 3=Moderate Assistance 7=Complete [place] Therapy Quality Codes: 6 Independent with activity with or without an assistive device 5 Patient requires set up or clean up by helper. Patient completes activity by themselves 4 Supervision or touching assist (CGA). [place] provide cues , steadying assist 3 The helper provides less than half the effort to complete the activity 2 The helper provides more than half the effort to complete the activity 1 Dependent. The helper does all the effort to complete an activity 7 Patient refused to complete or attempt activity 9 The patient did not perform the activity before the current illness or injury 88 Not attempted due to Medical conditions or safety concerns Transfers (B, C, W/C) (FIM): 4 Scootin Rollin Roll Left to Right (QC): 4 Supine to/from Sit: 4 Sit to/from Stand: 5 Sit to Lying (QC): 4 Sit to Stand (QC): 4 Chair/Auf-ru-Ebjan Xfer(QC): 4 Bed to/from Chair: 5 Car Transfer (QC): 4 Gait Training Does the Patient Walk?: Yes Gait (FIM): 5 Distance (FIM): 3=150 ft (175) Distance: 8' Walk 10 feet (QC): 4 Walk 50 ft with 2 Turns(QC): 88 Walk 150 ft (QC): 88 Walking 10ft/uneven surface-QC: 4 Gait Level of Assist: 5 Gait Persons Needed: 1 Gait Assistive Device: FWW Wheelchair Training Does the Pt Use a Wheelchair?: No Stair Training Stairs (FIM): 1 #of Steps: 1 1 Step (curb) (QC): 4 4 Steps (QC): 88 12 Steps (QC): 88 Level of Assist: 4 Mental Status/Objective Comprehension: 6 Expression: 6 Social Interaction: 6 Problem Solvin Memory: 5 ADL-Treatment Feedin Eating (QC): 5 Groomin Oral Hygiene (QC): 4 Bathin Bathing Location: L Arm, R Arm, L Upper Leg, R Upper Leg, Chest, Abdomen, Perineal Area Shower/Bathe Self (QC): 3 Upper Extremity Dressin Upper Body Dressing (QC): 4 Lower Extremity Dressin Lower Body Dressing (QC): 3 On/Off Footwear (QC): 1 Toiletin Toileting Hygiene (QC): 4 Toilet/Commode Transfer: 4 Toilet Transfer (QC): 4 Shower: 4 Assessment/Plan Assessment and Plan Assess & Plan/Chief Complaint Plan: Pain control Monitor BP and HR Lovenox Monitor labs IRF protocol AL at DC Monitor confusion (1) Closed right hip fracture (2) Fall Status: Acute (3) Hip fracture, right (4) Dizziness Status: Acute (5) SAH (subarachnoid hemorrhage) Status: Acute (6) Anemia (7) Hyperlipidemia (8) Hypertension (9) Chronic vertigo Status: Acute CORBIN WINTER DO Oct 18, 2018 09:36
--- NOTE | 2018-10-18 10:20 | NUR ---
Pastoral care visit.
--- NOTE | 2018-10-18 12:29 | Physical Therapy Daily Note ---
PT Daily Note-Current Subjective Pt agreeable to PT session. Difficult to understand at times Pain Numeric Pain Scale: 6 Location: Right Location Body Site: Hip Comment: per nsg, pt rcv'd pain med early this morning Appearance Pt in bed upon arrival with ice pack on R hip, nursing staff present. Pt requesting and assisted to restroom during session. At end of session, pt sitting up in recliner, chair alarm activated, with call light, phone and bedside table within reach Mental Status Patient Orientation: Person, Place, Eyes Open Transfers Therapy Code Descriptions/Definitions Functional [place] Measure: 0=Not Assessed/NA 4=Minimal Assistance 1=Total Assistance 5=Supervision or Setup 2=Maximal Assistance 6=Modified [place] 3=Moderate Assistance 7=Complete [place] Therapy Quality Codes: 6 Independent with activity with or without an assistive device 5 Patient requires set up or clean up by helper. Patient completes activity by themselves 4 Supervision or touching assist (CGA). [place] provide cues , steadying assist 3 The helper provides less than half the effort to complete the activity 2 The helper provides more than half the effort to complete the activity 1 Dependent. The helper does all the effort to complete an activity 7 Patient refused to complete or attempt activity 9 The patient did not perform the activity before the current illness or injury 88 Not attempted due to Medical conditions or safety concerns Transfers (B, C, W/C) (FIM): 5 Scootin Rollin Supine to/from Sit: 5 Sit to/from Stand: 5 Pt requiring skilled verb inst for safety and hand placement with some transfers. Able to stand upon 1st attempt. Slow movements with all transitions Weight Bearing Right Lower Extremity: Right Weight Bearing/Tolerated Left Lower Extremity: Left Full Weight Bearing Gait Training Does the Patient Walk?: Yes Gait (FIM): 5 Distance (FIM): 3=150 ft Distance: 228,115 Gait Level of Assist: 5 (SBA and skilled verb inst to increase step length and height) Gait Persons Needed: 1 Gait Assistive Device: FWW Pt ~following skilled instruction to improve gait quality by increasing step length, height, heel strike and toe off. Pt with decreased step length and height, antalgic gait, slow pace, decreased stance time RLE. Noted that toward end of 2nd gait distance, pt occasionally running into furniture/door jams with R front leg of walker. Exercises Standing: Hip Abduction, Hamstring curls, Heel/toe raises, 3 way Ex=Flex, Abd, Ext, Marching, Mini squats, Sit to Stand, Side steps, Stepping over objects, Unilateral stance, Weight shifts Standing Reps: 20 (performing ex's with BLE's to encourage increased WB on RLE and strengthening) NuStep Minutes: 19 (pt insisted upon completing 4 laps) NuStep Workload: 3 (seat 4, arms 7) Treatments bed mobility, transfers, gait, safety, education, balance, strength, activity tolerance, functional mobility, toileting Assessment Current Status: Good Progress PT Assisted Goals Marine Pipe Welder Goals PT Assisted Goals Time Frame: Nov 10, 2018 Transfers (B,C,W/C) (FIM): 6 Sit to Lying (QC): 6 Lying-Sitting on Side/Bed(QC): 6 Sit to Stand (QC): 6 Rollin Roll Left to Right (QC): 6 Chair/Sat-dk-Gcvci Xfer(QC): 6 Car Transfer (QC): 6 Does the Patient Walk: Yes Gait (FIM): 6 Gait distance (FIM): 3=150 ft Distance: 250' Walk 10 feet (QC): 6 Walk 10ft-Uneven Surface(QC): 6 Walk 50ft with 2 Turns (QC): 6 Walk 150 ft (QC): 6 Gait Level of Assist: 6 Gait Assistive Device: FWW Stairs (FIM): 2 # of Steps: 4 1 Step (curb) (QC): 5 4 Steps (QC): 5 12 Steps (QC): 9 Stairs Level Of Assist: 5 Picking up an Object (QC): 5 PT Plan Treatment/Plan Treatment Plan: Continue Plan of Care Treatment Plan: Bed Mobility, Education, Functional Activity Morgan, Functional Strength, Gait, Safety, Therapeutic Exercise, Transfers Treatment Duration: Nov 10, 2018 Frequency: At least 5 of 7 days/Wk (IRF) Estimated Hrs Per Day: 1.5 hours per day Patient and/or Family Agrees t: Yes Safety Risks/Education Patient Education: Gait Training, Transfer Techniques, Reviewed Use of Ice, Safety Issues Teaching Recipient: Patient Teaching Methods: Demonstration, Discussion Response to Teaching: Verbalize Understanding, Return Demonstration, Reinforcement Needed Time/GCodes Time In: 800 Time Out: 900 Total Billed Treatment Time: 60 Total Billed Treatment 1 visit, GT x15m, FA x15, EX x30 PADMINI,VIVIANA ASSEMBLER MOVEMENT Oct 18, 2018 12:29
--- NOTE | 2018-10-18 13:31 | NUR ---
RETORT CONDENSER ATTENDANT met with patient to review team conference summary. As patient just recently admitted, team has recommended patient be reevaluated at next team conference on 918. Patient appeared to understand this recommendation and is agreeable at this time; however, patient continues to express the need to discharge NELIDA to return home to provide care for her spouse. RETORT CONDENSER ATTENDANT reassured patient that spouse is being taken care of at [facility] in for the need to focus on her rehabilitation treatment to return home sooner. RETORT CONDENSER ATTENDANT will continue to follow
--- NOTE | 2018-10-18 14:45 | Therapy Group Daily Note ---
Therapy Daily Group Note Patient Education Topic Exercises Exercises LE Seated Exercise, UE Exercise Session Ratio (pt:therapist): 4:1 Goal of Session: UE/LE Strengthing Goal Met for this Session: Yes Pt Benefit of Group: Contributions to Others, Increased Functional Strength, Improved Cognition, Recognition of Peers, Socialization Other/Notes Pt ambulated with FWW to OT/PT group. Group consisted of introduction (name, place living, memory of 10/17), socialization, pt led UE/LE seated exercises and education on the benefits of exercise. Pt introduced self then actively listened to peers. Pt participated in conversations and contributed to educational topics. Pt effectively led exercises and completed each exercise to the best of pt's ability. After therapy, pt lying in bed with call light/phone in reach. All needs met in room. Start Time: 13:00 Stop Time: 14:10 Total Billed Treatment Time: 70 Total Billed Treatment 1-GRP MISHA KC Oct 18, 2018 14:44
[2018-10-18 16:22] VITALS: BP 108/69
--- NOTE | 2018-10-18 17:41 | Progress Note ---
Subjective Date Seen by a Provider: Oct 18, 2018 Time Seen by a Provider: 12:30 Subjective/Events-last exam Fwup right compacted femoral fracture, HTN, dizziness, confusion. Apparently told some of the staff that she felt both she and her would both within the year. States is at [facility] but that she plans on going home. I told her I did not think that she would be able to go home and that it would not be safe for her to go home. She is confused but does not appear depressed or suicidal. Objective Exam Vital Signs Date Time Temp Pulse Resp B/P (MAP) Pulse Ox O2 Delivery O2 Flow Rate FiO2 10/18/18 16:22 37.4 78 14 108/69 98 Room Air 10/18/18 09:47 Room Air 10/18/18 08:00 80 16 112/69 98 Room Air 10/18/18 06:30 36.6 82 16 105/72 97 Room Air 10/17/18 21:00 Room Air I & O 10/18/18 07:00 Intake Total 1600 ml Balance 1600 ml Capillary Refill : Less Than 3 Seconds General Appearance: No Apparent Distress Neck: Supple Respiratory: Lungs Clear Cardiovascular: Regular Rate, Rhythm Gastrointestinal: normal bowel sounds, non tender, soft Extremity: Non Tender, No Calf Tenderness, No Pedal Edema Neurologic/Psychiatric: Alert Skin: Warm/Dry, Other (right hip dressing dry and in place) Assessment/Plan Assessment/Plan Assess & Plan/Chief Complaint 1. Right Compacted Femoral Fracture--pain control, PT/OT 2. Hypertension--back on low dose metoprolol 3. Vertigo--high fall risk 4. Confusion/Dementia--worse this hospital stay, has not tolerated aricept or namenda in past due to worsening dizziness, could consider Exelon patch but not sure if would benefit much from this and if would have side effects as well Clinical Quality Measures DVT/VTE Risk/Contraindication: Risk Factor Score Per Nursin RFS Level Per Nursing on Admit: 4+=Very High NICANOR ESTRELLA DO Oct 18, 2018 17:41
--- NOTE | 2018-10-18 19:46 | NUR ---
Dressing to left hip incision changed. Incision line cleansed with alcohol pads. AllKare applied to surrounding tissue. Covered with [place] dressing.
[2018-10-19 06:04] VITALS: BP 119/74
[2018-10-19 08:00] VITALS: BP 108/73
--- NOTE | 2018-10-19 08:00 | NUR ---
STATES RIGHT LEG "ONLY WORKS 1/2 WAY". 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
[2018-10-19] MEDS: SENNA W/DOCUSATE (SENOKOT S) TABLET PO SCH ×2 (08:31→21:38)
[2018-10-19] MEDS: ENOXAPARIN 40 MG/0.4 ML (LOVENOX) SYR SC SCH (08:35)
--- NOTE | 2018-10-19 09:44 | Progress Note ---
Subjective Date Seen by a Provider: Oct 19, 2018 Time Seen by a Provider: 09:42 Subjective/Events-last exam Fwup right compacted femoral fracture, HTN, dizziness, confusion. Sitting up in chair. States hip is hurtful today but does not want pain meds--has ice in place. Objective Exam Vital Signs Date Time Temp Pulse Resp B/P (MAP) Pulse Ox O2 Delivery O2 Flow Rate FiO2 10/19/18 06:04 36.5 75 18 119/74 99 Room Air 10/18/18 21:00 Room Air 10/18/18 16:22 37.4 78 14 108/69 98 Room Air 10/18/18 09:47 Room Air I & O 10/19/18 07:00 Intake Total 1000 ml Balance 1000 ml Capillary Refill : Less Than 3 Seconds General Appearance: No Apparent Distress Respiratory: Lungs Clear Cardiovascular: Regular Rate, Rhythm Gastrointestinal: normal bowel sounds, non tender, soft Extremity: Non Tender, No Calf Tenderness, No Pedal Edema Neurologic/Psychiatric: Alert Skin: Warm/Dry (right hip dressing dry) Assessment/Plan Assessment/Plan Assess & Plan/Chief Complaint 1. Right Compacted Femoral Fracture--pain control, PT/OT 2. Hypertension--back on low dose metoprolol 3. Vertigo--high fall risk 4. Confusion/Dementia--worse this hospital stay, has not tolerated aricept or namenda in past due to worsening dizziness, could consider Exelon patch but not sure if would benefit much from this and if would have side effects as well, recommend NH placement for DC--patient states her is at [facility] Clinical Quality Measures DVT/VTE Risk/Contraindication: Risk Factor Score Per Nursin RFS Level Per Nursing on Admit: 4+=Very High NICANOR ESTRELLA DO Oct 19, 2018 09:44
--- NOTE | 2018-10-19 10:00 | NUR ---
DR. ESTRELLA HERE TO SEE PATIENT.
--- NOTE | 2018-10-19 10:59 | Occupational Ther Daily Note ---
OT Current Status-Daily Note Subjective Pt seen in room, up in bathroom, agreeable to OT. No pain mentioned except has some discomfort with trying to reach R foot during ADLs. Appearance Alert, cooperative, a little confused a times Mental Status/Objective Therapy Code Descriptions/Definitions Functional [place] Measure: 0=Not Assessed/NA 4=Minimal Assistance 1=Total Assistance 5=Supervision or Setup 2=Maximal Assistance 6=Modified [place] 3=Moderate Assistance 7=Complete [place] ADL-Treatment Pt was able to get up off toilet, manage her hygiene and pull up pants with SBA, FWW. She walked SBA for safety, FWW to recliner and transferred to chair with skilled cues for hand placement. She was able to kick shoes off but unable to take TEDs or slipper socks off R LE. Walked SBA for safety, FWW back to bathroom and transferred into shower and on to shower bench with skilled cues/education for walker and hand placement, CGA. Pt was able to wash and dry all parts except R lower leg and needed CGA when standing to wash bottom. Also needed cues to put R foot on floor when standing up in shower. Shower bench, grab bars, hand held shower. Transferred out of shower with CGA and walked CGA, FWW to sit on toilet to dress. Unable to don sock or shoe on R foot and unable to get underwear over R foot. Pt educ modified technique for LB dressing. Dressed upper body with setup. Walked SBA for safety, FWW to recliner and combed hair with setup. Washed face and hands in shower. Therapy Code Descriptions/Definitions Functional [place] Measure: 0=Not Assessed/NA 4=Minimal Assistance 1=Total Assistance 5=Supervision or Setup 2=Maximal Assistance 6=Modified [place] 3=Moderate Assistance 7=Complete [place] Therapy Quality Codes: 6 Independent with activity with or without an assistive device 5 Patient requires set up or clean up by helper. Patient completes activity by themselves 4 Supervision or touching assist (CGA). [place] provide cues , steadying assist 3 The helper provides less than half the effort to complete the activity 2 The helper provides more than half the effort to complete the activity 1 Dependent. The helper does all the effort to complete an activity 7 Patient refused to complete or attempt activity 9 The patient did not perform the activity before the current illness or injury 88 Not attempted due to Medical conditions or safety concerns Grooming (FIM): 5 (setup) Bathing (FIM): 4 (CGA, help with R foot) Bathing Location: L Arm, R Arm, L Upper Leg, R Upper Leg, L Lower Leg (including foot), Chest, Abdomen, Buttocks, Perineal Area Upper Body (FIM): 5 (setup) Lower Body Dressing (FIM): 3 (Help with socks off and on R LE, shoe on R LE and pants on over R foot. ) Toileting (FIM): 5 (SBA, tall toilet, grab bar) Toilet/Commode Transfer (FIM): 5 (SBA, tall toilet, grab bar) Shower Transfer(FIM): 4 (CGA) Other Treatment Pt completed 10 reps bilat UE exercise without additional weights, with education on the different exercises and purpose of exercises. She moved slowly and was able to track repetitions. Occasional cues to do exercise correctly. pt left up in recliner, chair alarm on, all needs met. Education OT Patient Education: Exercise program, Modified ADL techniques, Progress toward Goal/Update tx plan, Purpose of tx/functional activities, Safety issues, Transfer techniques Teaching Recipient: Patient Teaching Methods: Demonstration, Discussion Response to Teaching: Verbalize Understanding, Return Demonstration, Reinforcement Needed OT Short Term Goals Short Term Goals Time Frame: Oct 23, 2018 Bathing(FIM): 4 Upper Body Dressing(FIM): 5 Lower Body Dressing(FIM): 4 Toilet/Commode Transfer(FIM): 4 (CGA) Additional Short Term Goals: 1-Demonstrate ADL Tasks, 2-Verbalize Understanding, 3-ImproveStrength/Morgan 1=Demonstrate adherence to instructed precautions during ADL tasks. 2=Patient will verbalize/demonstrate understanding of assistive devices/modifications for ADL. 3=Patient will improve strength/tolerance for activity to enable patient to perform ADL's. OT Part Time Flexible Clerk Goals [facility] Goals Time Frame: Nov 06, 2018 Eating (FIM): 6 Eating (QC): 6 Groomin Oral Hygiene (QC): 6 Bathing(FIM): 5 Shower/Bathe Self (QC): 5 Upper Body Dressing(FIM): 6 Upper Body Dressing (QC): 6 Lower Body Dressing(FIM): 5 Lower Body Dressing (QC): 5 On/Off Footwear (QC): 5 Toileting(FIM): 6 Toileting Hygiene (QC): 6 Toilet/Commode Transfer(FIM): 6 Toilet/Commode Transfer (QC): 6 Shower Transfer(FIM): 5 Additional Goals: 1-Demonstrate ADL Tasks, 2-Verbalize Understanding, 3-ImproveStrength/Morgan 1=Demonstrate adherence to instructed precautions during ADL tasks. 2=Patient will verbalize/demonstrate understanding of assistive devices/modifications for ADL. 3=Patient will improve strength/tolerance for activity to enable patient to perform ADL's. OT Education/Plan Discharge Recommendations Plan/Recommendations: Continue POC Treatment Plan/Plan of Care Patient would benefit from OT for education, treatment and training to promote independence in ADL's, mobility, safety and/or upper extremity function for ADL's. Plan of Care: ADL Retraining, Functional Mobility, Group Exercise/Act as Ind, UE Funct Exercise/Act Treatment Duration: Nov 06, 2018 Frequency: At least 5 of 7 days/Wk (IRF) Estimated Hrs Per Day: 1.5 hours per day Agreement: Yes Rehab Potential: Fair Time/GCodes Start Time: 08:30 Stop Time: 09:30 Total Time Billed (hr/min): 60 Billed Treatment Time visit, 45 minutes ADL, 15 minutes exercise TARA LYON OT Oct 19, 2018 10:59
--- NOTE | 2018-10-19 11:10 | Physical Therapy Daily Note ---
PT Daily Note-Current Subjective Patient in recliner pre tx, agrees to PT, has 4/10 pain in right hip. Appearance Patient in bathroom on toilet post tx, she says she needs a while, instructed to use nurse call when done, nurse aide notified that patient is on toilet. Mental Status Patient Orientation: Person, Place, Situation Transfers Therapy Code Descriptions/Definitions Functional [place] Measure: 0=Not Assessed/NA 4=Minimal Assistance 1=Total Assistance 5=Supervision or Setup 2=Maximal Assistance 6=Modified [place] 3=Moderate Assistance 7=Complete [place] Therapy Quality Codes: 6 Independent with activity with or without an assistive device 5 Patient requires set up or clean up by helper. Patient completes activity by themselves 4 Supervision or touching assist (CGA). [place] provide cues , steadying assist 3 The helper provides less than half the effort to complete the activity 2 The helper provides more than half the effort to complete the activity 1 Dependent. The helper does all the effort to complete an activity 7 Patient refused to complete or attempt activity 9 The patient did not perform the activity before the current illness or injury 88 Not attempted due to Medical conditions or safety concerns Transfers (B, C, W/C) (FIM): 5 Sit to/from Stand: 5 Bed to/from Chair: 5 Weight Bearing Right Lower Extremity: Right Weight Bearing/Tolerated Left Lower Extremity: Left Full Weight Bearing Gait Training Gait (FIM): 5 Distance: 150'x2 Gait Level of Assist: 5 Gait Persons Needed: 1 Gait Assistive Device: FWW slow but steady ambulation, decreased stance time on right leg, cues for step- through Exercises Standing: Hamstring curls, Heel/toe raises, 3 way Ex=Flex, Abd, Ext (not extension), Marching, Mini squats Standing Reps: 15 LAQ alternating for 5 min with 2# ankle weights NuStep Minutes: 15 NuStep Workload: 5 Treatments transfers, ambulation, LE exercise Assessment Current Status: Fair Progress improving endurance PT Electroencephalographic Technician Goals Electroencephalographic Technician Goals PT [facility] Goals Time Frame: Nov 10, 2018 Transfers (B,C,W/C) (FIM): 6 Sit to Lying (QC): 6 Lying-Sitting on Side/Bed(QC): 6 Sit to Stand (QC): 6 Rollin Roll Left to Right (QC): 6 Chair/Hvi-kw-Xrbic Xfer(QC): 6 Car Transfer (QC): 6 Does the Patient Walk: Yes Gait (FIM): 6 Gait distance (FIM): 3=150 ft Distance: 250' Walk 10 feet (QC): 6 Walk 10ft-Uneven Surface(QC): 6 Walk 50ft with 2 Turns (QC): 6 Walk 150 ft (QC): 6 Gait Level of Assist: 6 Gait Assistive Device: FWW Stairs (FIM): 2 # of Steps: 4 1 Step (curb) (QC): 5 4 Steps (QC): 5 12 Steps (QC): 9 Stairs Level Of Assist: 5 Picking up an Object (QC): 5 PT Plan Problem List Problem List: Activity Tolerance, Functional Strength, Safety, Balance, Gait, Transfer, Bed Mobility, ROM Treatment/Plan Treatment Plan: Continue Plan of Care Treatment Plan: Bed Mobility, Education, Functional Activity [place], Functional Strength, Gait, Safety, Therapeutic Exercise, Transfers Treatment Duration: Nov 10, 2018 Frequency: At least 5 of 7 days/Wk (IRF) Estimated Hrs Per Day: 1.5 hours per day Patient and/or Family Agrees t: Yes Safety Risks/Education Patient Education: Gait Training, Transfer Techniques, Correct Positioning, Safety Issues Teaching Recipient: Patient Teaching Methods: Demonstration, Discussion Response to Teaching: Reinforcement Needed Time/GCodes Time In: 1000 Time Out: 1100 Total Billed Treatment Time: 60 Total Billed Treatment 1 visit FA 10' GT 20' EX 30' RAMAKRISHNA ARROYO PT Oct 19, 2018 11:10
--- NOTE | 2018-10-19 12:01 | Progress Note ---
LEIGHANN MADRID [facility] 10/19/18 1201: Subjective Date Seen by a Provider: Oct 19, 2018 Time Seen by a Provider: 06:25 Subjective/Events-last exam vitals stable at this time Denies any pain Is eating well Is in an irritable mood this AM Uncooperative, refuses to let me examine her, raises her voice stating "you're no good", Says "I just feel like you're no good" when asked why Does not seem confused about where she is or why she is there Review of Systems could not perform as pt is uncooperative Objective Exam Last Set of Vital Signs Vital Signs Date Time Temp Pulse Resp B/P (MAP) Pulse Ox O2 Delivery O2 Flow Rate FiO2 10/19/18 06:04 36.5 75 18 119/74 99 Room Air Capillary Refill : Less Than 3 Seconds I&O Intake and Output 10/19/18 00:00 Intake Total 1100 ml Balance 1100 ml Intake Oral 1100 ml # Voids 11 Other physical findings did not perform PE as pt was uncooperative Assessment/Plan Assessment/Plan Assess & Plan/Chief Complaint Increased confusion, scored 24/30 on cognitive testing with speech therapy Irritable Uncooperative In no acute distress continue to monitor cognition Fall risk Monitor Hemoglobin and RBC Clinical Quality Measures Admission Status Admission Dx Assessment Post op repair of Impaction fracture of proximal Right femur stable vitals Normal cognition Pain under control Motivated to work with PT Essential HTN Plan PT, OT @ inpatient rehab Pt does not appear depressed, however may benefit from psych eval both to have a baseline status and to assess her mood and her thoughts about her predictions regarding her Low dose metoprolol BM regimen DVT prophylaxis DVT/VTE Risk/Contraindication: Risk Factor Score Per Nursin RFS Level Per Nursing on Admit: 4+=Very High RADHA WINTER DO 10/19/18 1541: Supervisory-Addendum Brief Verification & Attestation Participated in pt care: history, MDM, physical Personally performed: exam, history, MDM, supervision of care Care discussed with: Medical Student Procedures: n/a Results interpretation: Verified all documentation Verification and Attestation of Medical Student E/M Service A medical student performed and documented this service in my presence. I reviewed and verified all information documented by the medical student and made modifications to such information, when appropriate. I personally performed the physical exam and medical decision making. Radha Winter, Oct 19, 2018,15:41 LEIGHANN MADRID [facility] Oct 19, 2018 12:01 RADHA WINTER DO Oct 19, 2018 15:41
--- NOTE | 2018-10-19 14:54 | Therapy Group Daily Note ---
Therapy Daily Group Note Patient Education Topic Foot Wear, Home Safety, Fall Prevention, Home Safety, Exercises Exercises LE Seated Exercise, Balance, UE Exercise Session Ratio (pt:therapist): 4:1 Goal of Session: Home Safety Strategies, UE/LE Strengthing, Other (chandu) (mally thakkar) Goal Met for this Session: Yes Pt Benefit of Group: Contributions to Others, F/U Use of Strategies @Home, Increased Functional Strength, Recognition of Peers, Socialization Other/Notes Each patient participated in group therapy in the common area of rehab. Each patient ambulated or was transported and placed in a ak chin to encourage patient interaction and participation. Each patient then had to introduce themselves and answer a question involving critical thinking and recall. Patient's then participated in group discussion and education about home safety and balance and performed UE and LE exercises. Finally, each patient ambulated or was transported back to bed or chair with nurse call, phone, and tray. Start Time: 13:00 Stop Time: 14:10 Total Billed Treatment Time: 70 Total Billed Treatment 1 visit GRP 70RAMAKRISHNA FITZPATRICK PT Oct 19, 2018 14:54
--- NOTE | 2018-10-19 15:30 | PM&R Progress Note ---
Subjective HPI/CC On Admission Date Seen by Provider: Oct 19, 2018 Time Seen by Provider: 15:00 Chief complaint: Debility following right hip fracture. HPI: This is a 73yo oriental female clinic Pt of Dr. Sweeney who has a history of chronic vertigo and multiple falls, most recently was a subdural hematoma of which I took care of her during a weekend that Dr. 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 Reynolds that was uncomplicated. Her bowels reported to be moving per Pt but unsure if she understood the question. She doesn't appear to have any confusion, she does understand [place] but there is still a language barrier there, her prior level of function was ambulation without the use of assisted devices and the plan would be to go to assisted living at discharge and Pt will be closely monitored during inpatient rehab stay and to gain confidence and become successful and discharge. Subjective/Events-last exam Very impulsive. Was not pleased that I came in to listen to her heart and lungs Psych evaluation not recommended by primary care provider due to dementia Dementia seems to be a major factor in her slow recovery and will likely need correction placement Continues to be a fall risk. Checked meds and labs PCP will continue to see the patient Conferred with RN Reviewed therapy notes Review of Systems General: Fatigue Musculoskeletal: leg pain Neurological: Confusion Objective Exam Vital Signs Vital Signs Date Time Temp Pulse Resp B/P (MAP) Pulse Ox O2 Delivery O2 Flow Rate FiO2 10/19/18 09:00 Room Air 10/19/18 06:04 36.5 75 18 119/74 99 Capillary Refill : Less Than 3 Seconds General Appearance: WD/WN, Anxious, Chronically ill, Mild Distress HEENT: PERRL/EOMI, TMs Normal, Normal ENT Inspection Neck: Full Range of Motion, Normal Inspection, Non Tender Respiratory: Chest Non Tender, Lungs Clear, Normal Breath Sounds, No Accessory Muscle Use, No Respiratory Distress Cardiovascular: Regular Rate, Rhythm, No Edema, No Gallop, No JVD, No Murmur, Normal Peripheral Pulses Gastrointestinal: Normal Bowel Sounds, No Organomegaly, No Pulsatile Mass, Non Tender, Soft Back: Normal Inspection, No CVA Tenderness, No Vertebral Tenderness Extremity: Normal Capillary Refill, Normal Inspection, No Calf Tenderness, Other (decreased ROM right leg) Neurologic/Psychiatric: Alert, Oriented x3, No Motor/Sensory Deficits, Normal Mood/Affect, gardening manager II-XII Norm as Tested, Disoriented Skin: Normal Color, Warm/Dry Lymphatic: No Adenopathy Results/Procedures Lab Patient resulted labs reviewed. FIM Transfers Therapy Code Descriptions/Definitions Functional [place] Measure: 0=Not Assessed/NA 4=Minimal Assistance 1=Total Assistance 5=Supervision or Setup 2=Maximal Assistance 6=Modified [place] 3=Moderate Assistance 7=Complete [place] Therapy Quality Codes: 6 Independent with activity with or without an assistive device 5 Patient requires set up or clean up by helper. Patient completes activity by themselves 4 Supervision or touching assist (CGA). [place] provide cues , steadying assist 3 The helper provides less than half the effort to complete the activity 2 The helper provides more than half the effort to complete the activity 1 Dependent. The helper does all the effort to complete an activity 7 Patient refused to complete or attempt activity 9 The patient did not perform the activity before the current illness or injury 88 Not attempted due to Medical conditions or safety concerns Transfers (B, C, W/C) (FIM): 5 Scootin Rollin Roll Left to Right (QC): 4 Supine to/from Sit: 5 Sit to/from Stand: 5 Sit to Lying (QC): 4 Sit to Stand (QC): 4 Chair/Sjc-gi-Wxsxx Xfer(QC): 4 Bed to/from Chair: 5 Car Transfer (QC): 4 Gait Training Does the Patient Walk?: Yes Gait (FIM): 5 Distance (FIM): 3=150 ft Distance: 150'x2 Walk 10 feet (QC): 4 Walk 50 ft with 2 Turns(QC): 88 Walk 150 ft (QC): 88 Walking 10ft/uneven surface-QC: 4 Gait Level of Assist: 5 Gait Persons Needed: 1 Gait Assistive Device: FWW Wheelchair Training Does the Pt Use a Wheelchair?: No Stair Training Stairs (FIM): 1 #of Steps: 1 1 Step (curb) (QC): 4 4 Steps (QC): 88 12 Steps (QC): 88 Level of Assist: 4 Mental Status/Objective Comprehension: 6 Expression: 6 Social Interaction: 6 Problem Solvin Memory: 5 ADL-Treatment Feedin Eating (QC): 5 Groomin (setup) Oral Hygiene (QC): 4 Bathin (CGA, help with R foot) Bathing Location: L Arm, R Arm, L Upper Leg, R Upper Leg, L Lower Leg (including foot), Chest, Abdomen, Buttocks, Perineal Area Shower/Bathe Self (QC): 3 Upper Extremity Dressin (setup) Upper Body Dressing (QC): 4 Lower Extremity Dressin (Help with socks off and on R LE, shoe on R LE and pants on over R foot. ) Lower Body Dressing (QC): 3 On/Off Footwear (QC): 1 Toiletin (SBA, tall toilet, grab bar) Toileting Hygiene (QC): 4 Toilet/Commode Transfer: 5 (SBA, tall toilet, grab bar) Toilet Transfer (QC): 4 Shower: 4 (CGA) Assessment/Plan Assessment and Plan Assess & Plan/Chief Complaint Plan: Pain control Monitor BP and HR Lovenox Monitor labs IRF protocol AL at DC Monitor confusion (1) Closed right hip fracture (2) Fall Status: Acute (3) Hip fracture, right (4) Dizziness Status: Acute (5) SAH (subarachnoid hemorrhage) Status: Acute (6) Anemia (7) Hyperlipidemia (8) Hypertension (9) Chronic vertigo Status: Acute CORBIN WINTER DO Oct 19, 2018 15:30
[2018-10-19 16:55] VITALS: BP 142/83
[2018-10-20 06:13] VITALS: BP 115/73
[2018-10-20 08:00] VITALS: BP 117/71
--- NOTE | 2018-10-20 08:00 | NUR ---
DENIES PAIN AT REST. REFUSED SENNA - STATES LOOSE BM.
[2018-10-20] MEDS: SENNA W/DOCUSATE (SENOKOT S) TABLET PO SCH ×2 (08:55→19:36)
[2018-10-20] MEDS: ENOXAPARIN 40 MG/0.4 ML (LOVENOX) SYR SC SCH (08:56)
--- NOTE | 2018-10-20 11:11 | Physical Therapy Daily Note ---
PT Daily Note-Current Subjective Pt sitting in recliner upon arrival. Pt agrees to PT. Mental Status Patient Orientation: Person, Confused, Place Transfers Therapy Code Descriptions/Definitions Functional [place] Measure: 0=Not Assessed/NA 4=Minimal Assistance 1=Total Assistance 5=Supervision or Setup 2=Maximal Assistance 6=Modified [place] 3=Moderate Assistance 7=Complete [place] Therapy Quality Codes: 6 Independent with activity with or without an assistive device 5 Patient requires set up or clean up by helper. Patient completes activity by themselves 4 Supervision or touching assist (CGA). [place] provide cues , steadying assist 3 The helper provides less than half the effort to complete the activity 2 The helper provides more than half the effort to complete the activity 1 Dependent. The helper does all the effort to complete an activity 7 Patient refused to complete or attempt activity 9 The patient did not perform the activity before the current illness or injury 88 Not attempted due to Medical conditions or safety concerns Scootin Supine to/from Sit: 5 Sit to/from Stand: 5 Sit to Stand (QC): 5 Weight Bearing Right Lower Extremity: Right Weight Bearing/Tolerated Left Lower Extremity: Left Full Weight Bearing Gait Training Does the Patient Walk?: Yes Gait (FIM): 5 Distance (FIM): 3=150 ft Distance: 200' Walk 10 feet (QC): 5 Walk 50 ft with 2 Turns(QC): 5 Walk 150 ft (QC): 5 Gait Level of Assist: 5 Gait Persons Needed: 1 Gait Assistive Device: FWW Wheelchair Training Does the Pt Use a Wheelchair?: No Treatments Pt transfers to standing and uses restroom before leaving room. Pt ambulates in hallway then returns to room to rest Supine in bed. All needs met, call light in hand. Assessment Current Status: Good Progress Pt still demonstrates confusion with following directions. PT Senior Care Goals Senior Care Goals PT Remelt Furnace Expediter Goals Time Frame: Nov 10, 2018 Transfers (B,C,W/C) (FIM): 6 Sit to Lying (QC): 6 Lying-Sitting on Side/Bed(QC): 6 Sit to Stand (QC): 6 Rollin Roll Left to Right (QC): 6 Chair/Bmg-sq-Lcdzi Xfer(QC): 6 Car Transfer (QC): 6 Does the Patient Walk: Yes Gait (FIM): 6 Gait distance (FIM): 3=150 ft Distance: 250' Walk 10 feet (QC): 6 Walk 10ft-Uneven Surface(QC): 6 Walk 50ft with 2 Turns (QC): 6 Walk 150 ft (QC): 6 Gait Level of Assist: 6 Gait Assistive Device: FWW Stairs (FIM): 2 # of Steps: 4 1 Step (curb) (QC): 5 4 Steps (QC): 5 12 Steps (QC): 9 Stairs Level Of Assist: 5 Picking up an Object (QC): 5 PT Plan Problem List Problem List: Activity Tolerance, Safety Treatment/Plan Treatment Plan: Continue Plan of Care Treatment Plan: Bed Mobility, Education, Functional Activity [place], Functional Strength, Gait, Safety, Therapeutic Exercise, Transfers Treatment Duration: Nov 10, 2018 Frequency: At least 5 of 7 days/Wk (IRF) Estimated Hrs Per Day: 1.5 hours per day Patient and/or Family Agrees t: Yes Safety Risks/Education Patient Education: Gait Training, Transfer Techniques, Correct Positioning, Safety Issues Teaching Recipient: Patient Teaching Methods: Discussion Response to Teaching: Reinforcement Needed Time/GCodes Time In: 1020 Time Out: 1037 Total Billed Treatment Time: 17 Total Billed Treatment 1, FA (17m) TIMOTHY ANDERSON [employer] Oct 20, 2018 11:11
--- NOTE | 2018-10-20 12:23 | PM&R Progress Note ---
Subjective HPI/CC On Admission Date Seen by Provider: Oct 20, 2018 Time Seen by Provider: 11:45 Chief complaint: Debility following right hip fracture. HPI: This is a 73yo oriental female clinic Pt of Dr. Sweeney who has a history of chronic vertigo and multiple falls, most recently was a subdural hematoma of which I took care of her during a weekend that Dr. 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 Reynolds that was uncomplicated. Her bowels reported to be moving per Pt but unsure if she understood the question. She doesn't appear to have any confusion, she does understand [place]ian but there is still a language barrier there, her prior level of function was ambulation without the use of assisted devices and the plan would be to go to assisted living at discharge and Pt will be closely monitored during inpatient rehab stay and to gain confidence and become successful and discharge. Subjective/Events-last exam Very impulsive but appears improved. Was not pleased to see me or any other health care providers Psych evaluation not recommended by primary care provider due to dementia Dementia seems to be a major factor in her slow recovery and will likely need correction placement Continues to be a fall risk. Checked meds and labs PCP will continue to see the patient Conferred with RN Reviewed therapy notes Review of Systems Musculoskeletal: leg pain Objective Exam Vital Signs Vital Signs Date Time Temp Pulse Resp B/P (MAP) Pulse Ox O2 Delivery O2 Flow Rate FiO2 10/20/18 16:10 36.3 71 14 115/73 97 Room Air Capillary Refill : Less Than 3 Seconds General Appearance: WD/WN, Anxious, Chronically ill, Mild Distress HEENT: PERRL/EOMI, TMs Normal, Normal ENT Inspection Neck: Full Range of Motion, Normal Inspection, Non Tender Respiratory: Chest Non Tender, Lungs Clear, Normal Breath Sounds, No Accessory Muscle Use, No Respiratory Distress Cardiovascular: Regular Rate, Rhythm, No Edema, No Gallop, No JVD, No Murmur, Normal Peripheral Pulses Gastrointestinal: Normal Bowel Sounds, No Organomegaly, No Pulsatile Mass, Non Tender, Soft Back: Normal Inspection, No CVA Tenderness, No Vertebral Tenderness Extremity: Normal Capillary Refill, Normal Inspection, No Calf Tenderness, Other (decreased ROM right leg) Neurologic/Psychiatric: Alert, Oriented x3, No Motor/Sensory Deficits, Normal 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 FIM Transfers Therapy Code Descriptions/Definitions Functional [place] Measure: 0=Not Assessed/NA 4=Minimal Assistance 1=Total Assistance 5=Supervision or Setup 2=Maximal Assistance 6=Modified [place] 3=Moderate Assistance 7=Complete [place] Therapy Quality Codes: 6 Independent with activity with or without an assistive device 5 Patient requires set up or clean up by helper. Patient completes activity by themselves 4 Supervision or touching assist (CGA). [place] provide cues , steadying assist 3 The helper provides less than half the effort to complete the activity 2 The helper provides more than half the effort to complete the activity 1 Dependent. The helper does all the effort to complete an activity 7 Patient refused to complete or attempt activity 9 The patient did not perform the activity before the current illness or injury 88 Not attempted due to Medical conditions or safety concerns Transfers (B, C, W/C) (FIM): 5 Scootin Rollin Roll Left to Right (QC): 4 Supine to/from Sit: 5 Sit to/from Stand: 5 Sit to Lying (QC): 4 Sit to Stand (QC): 5 Chair/Cwo-ig-Bsqrl Xfer(QC): 4 Bed to/from Chair: 5 Car Transfer (QC): 4 Gait Training Does the Patient Walk?: Yes Gait (FIM): 5 Distance (FIM): 3=150 ft Distance: 200' Walk 10 feet (QC): 5 Walk 50 ft with 2 Turns(QC): 5 Walk 150 ft (QC): 5 Walking 10ft/uneven surface-QC: 4 Gait Level of Assist: 5 Gait Persons Needed: 1 Gait Assistive Device: FWW Wheelchair Training Does the Pt Use a Wheelchair?: No Stair Training Stairs (FIM): 1 #of Steps: 1 1 Step (curb) (QC): 4 4 Steps (QC): 88 12 Steps (QC): 88 Level of Assist: 4 Mental Status/Objective Comprehension: 6 Expression: 6 Social Interaction: 6 Problem Solvin Memory: 5 ADL-Treatment Feedin Eating (QC): 5 Groomin (setup) Oral Hygiene (QC): 4 Bathin (CGA, help with R foot) Bathing Location: L Arm, R Arm, L Upper Leg, R Upper Leg, L Lower Leg (including foot), Chest, Abdomen, Buttocks, Perineal Area Shower/Bathe Self (QC): 3 Upper Extremity Dressin (setup) Upper Body Dressing (QC): 4 Lower Extremity Dressin (Help with socks off and on R LE, shoe on R LE and pants on over R foot. ) Lower Body Dressing (QC): 3 On/Off Footwear (QC): 1 Toiletin (SBA, tall toilet, grab bar) Toileting Hygiene (QC): 4 Toilet/Commode Transfer: 5 (SBA, tall toilet, grab bar) Toilet Transfer (QC): 4 Shower: 4 (CGA) Assessment/Plan Assessment and Plan Assess & Plan/Chief Complaint Plan: Pain control Monitor BP and HR Lovenox Monitor labs IRF protocol AL at DC Monitor confusion Fall risk (1) Closed right hip fracture (2) Fall Status: Acute (3) Hip fracture, right (4) Dizziness Status: Acute (5) SAH (subarachnoid hemorrhage) Status: Acute (6) Anemia (7) Hyperlipidemia (8) Hypertension (9) Chronic vertigo Status: Acute CORBIN WINTER DO Oct 20, 2018 12:23
[2018-10-20 16:10] VITALS: BP 115/73
[2018-10-21 05:41] VITALS: BP 116/67
[2018-10-21] MEDS: SENNA W/DOCUSATE (SENOKOT S) TABLET PO SCH ×2 (08:12→19:18)
[2018-10-21] MEDS: ENOXAPARIN 40 MG/0.4 ML (LOVENOX) SYR SC SCH (08:12)
[2018-10-21 08:13] VITALS: BP 100/62
[2018-10-21 09:59] VITALS: BP 120/74
--- NOTE | 2018-10-21 13:55 | PM&R Progress Note ---
Subjective HPI/CC On Admission Date Seen by Provider: Oct 21, 2018 Time Seen by Provider: 13:00 Chief complaint: Debility following right hip fracture. HPI: This is a 73yo oriental female clinic Pt of Dr. Sweeney who has a history of chronic vertigo and multiple falls, most recently was a subdural hematoma of which I took care of her during a weekend that Dr. 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 Reynolds that was uncomplicated. Her bowels reported to be moving per Pt but unsure if she understood the question. She doesn't appear to have any confusion, she does understand [place] but there is still a language barrier there, her prior level of function was ambulation without the use of assisted devices and the plan would be to go to assisted living at discharge and Pt will be closely monitored during inpatient rehab stay and to gain confidence and become successful and discharge. Subjective/Events-last exam She did allow me to listen to her heart and lungs today No significant issues reported Was dizzy but that is a chronic vertigo problem and she asked the nurse not to address it with me Very impulsive Major fall risk Check meds and labs Reviewed therapy notes Conferred with recreational programs director of Systems General: Fatigue Musculoskeletal: leg pain Objective Exam Vital Signs Vital Signs Date Time Temp Pulse Resp B/P (MAP) Pulse Ox O2 Delivery O2 Flow Rate FiO2 10/21/18 16:39 36.8 83 16 107/66 97 Room Air Capillary Refill : Less Than 3 Seconds General Appearance: WD/WN, Anxious, Chronically ill, Mild Distress HEENT: PERRL/EOMI, TMs Normal, Normal ENT Inspection Neck: Full Range of Motion, Normal Inspection, Non Tender Respiratory: Chest Non Tender, Lungs Clear, Normal Breath Sounds, No Accessory Muscle Use, No Respiratory Distress Cardiovascular: Regular Rate, Rhythm, No Edema, No Gallop, No JVD, No Murmur, Normal Peripheral Pulses Gastrointestinal: Normal Bowel Sounds, No Organomegaly, No Pulsatile Mass, Non Tender, Soft Back: Normal Inspection, No CVA Tenderness, No Vertebral Tenderness Extremity: Normal Capillary Refill, Normal Inspection, No Calf Tenderness, Other (decreased ROM right leg) Neurologic/Psychiatric: Alert, Oriented x3, No Motor/Sensory Deficits, Normal 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 FIM Transfers Therapy Code Descriptions/Definitions Functional [place] Measure: 0=Not Assessed/NA 4=Minimal Assistance 1=Total Assistance 5=Supervision or Setup 2=Maximal Assistance 6=Modified [place] 3=Moderate Assistance 7=Complete [place] Therapy Quality Codes: 6 Independent with activity with or without an assistive device 5 Patient requires set up or clean up by helper. Patient completes activity by themselves 4 Supervision or touching assist (CGA). [place] provide cues , steadying assist 3 The helper provides less than half the effort to complete the activity 2 The helper provides more than half the effort to complete the activity 1 Dependent. The helper does all the effort to complete an activity 7 Patient refused to complete or attempt activity 9 The patient did not perform the activity before the current illness or injury 88 Not attempted due to Medical conditions or safety concerns Transfers (B, C, W/C) (FIM): 5 Scootin Rollin Roll Left to Right (QC): 4 Supine to/from Sit: 5 Sit to/from Stand: 5 Sit to Lying (QC): 4 Sit to Stand (QC): 5 Chair/Gtq-pd-Bgqvy Xfer(QC): 4 Bed to/from Chair: 5 Car Transfer (QC): 4 Gait Training Does the Patient Walk?: Yes Gait (FIM): 5 Distance (FIM): 3=150 ft Distance: 200' Walk 10 feet (QC): 5 Walk 50 ft with 2 Turns(QC): 5 Walk 150 ft (QC): 5 Walking 10ft/uneven surface-QC: 4 Gait Level of Assist: 5 Gait Persons Needed: 1 Gait Assistive Device: FWW Wheelchair Training Does the Pt Use a Wheelchair?: No Stair Training Stairs (FIM): 1 #of Steps: 1 1 Step (curb) (QC): 4 4 Steps (QC): 88 12 Steps (QC): 88 Level of Assist: 4 Mental Status/Objective Comprehension: 6 Expression: 6 Social Interaction: 6 Problem Solvin Memory: 5 ADL-Treatment Feedin Eating (QC): 5 Groomin (setup) Oral Hygiene (QC): 4 Bathin (CGA, help with R foot) Bathing Location: L Arm, R Arm, L Upper Leg, R Upper Leg, L Lower Leg (including foot), Chest, Abdomen, Buttocks, Perineal Area Shower/Bathe Self (QC): 3 Upper Extremity Dressin (setup) Upper Body Dressing (QC): 4 Lower Extremity Dressin (Help with socks off and on R LE, shoe on R LE and pants on over R foot. ) Lower Body Dressing (QC): 3 On/Off Footwear (QC): 1 Toiletin (SBA, tall toilet, grab bar) Toileting Hygiene (QC): 4 Toilet/Commode Transfer: 5 (SBA, tall toilet, grab bar) Toilet Transfer (QC): 4 Shower: 4 (CGA) Assessment/Plan Assessment and Plan Assess & Plan/Chief Complaint Plan: Pain control Monitor BP and HR Lovenox Monitor labs IRF protocol AL at DC Monitor confusion Fall risk Monitor dizziness which is chronic (1) Closed right hip fracture (2) Fall Status: Acute (3) Hip fracture, right (4) Dizziness Status: Acute (5) SAH (subarachnoid hemorrhage) Status: Acute (6) Anemia (7) Hyperlipidemia (8) Hypertension (9) Chronic vertigo Status: Acute CORBIN WINTER DO Oct 21, 2018 13:55
[2018-10-21 16:39] VITALS: BP 107/66
[2018-10-22 05:33] LABS: BASOPHILS % (AUTO) 0 % (0-10); EOSINOPHILS # (AUTO) 0.2 10^3/uL (0.0-0.3); EOSINOPHILS % (AUTO) 4 % (0-10); HEMATOCRIT 35 % (35-52); HEMOGLOBIN 11.1 G/DL (11.5-16.0); LYMPHOCYTES # (AUTO) 1.5 X 10^3 (1.0-4.0); LYMPHOCYTES % (AUTO) 32 % (12-44); MEAN CORPUSCULAR HEMOGLOBIN 29 PG (25-34); MEAN CORPUSCULAR HGB CONC 32 G/DL (32-36); MEAN CORPUSCULAR VOLUME 91 FL (80-99); MEAN PLATELET VOLUME 10.3 FL (7.4-10.4); MONOCYTES # (AUTO) 0.4 X 10^3 (0.0-1.0); MONOCYTES % (AUTO) 9 % (0-12); NEUTROPHILS # (AUTO) 2.6 X 10^3 (1.8-7.8); NEUTROPHILS % (AUTO) 55 % (42-75); PLATELET COUNT 292 10^3/uL (130-400); RED CELL DISTRIBUTION WIDTH 13.1 % (10.0-14.5); WHITE BLOOD COUNT 4.8 10^3/uL (4.3-11.0)
[2018-10-22 05:43] VITALS: BP 137/82
[2018-10-22 06:12] LABS: ALANINE AMINOTRANSFERASE 28 U/L (0-55); ALBUMIN 3.4 GM/DL (3.2-4.5); ALKALINE PHOSPHATASE 95 U/L (40-136); BILIRUBIN,TOTAL 0.3 MG/DL (0.1-1.0); BUN/CREATININE RATIO 18; CALCIUM 8.8 MG/DL (8.5-10.1); CARBON DIOXIDE 22 MMOL/L (21-32); CHLORIDE 108 MMOL/L (98-107); CREATININE SERUM 0.74 MG/DL (0.60-1.30); GFR ESTIMATED > 60; GLUCOSE 104 MG/DL (70-105); SODIUM 141 MMOL/L (135-145); TOTAL PROTEIN 6.9 GM/DL (6.4-8.2)
--- NOTE | 2018-10-22 08:20 | PM&R Progress Note ---
Subjective HPI/CC On Admission Date Seen by Provider: Oct 22, 2018 Time Seen by Provider: 08:30 Chief complaint: Debility following right hip fracture. HPI: This is a 73yo oriental female clinic Pt of Dr. Sweeney who has a history of chronic vertigo and multiple falls, most recently was a subdural hematoma of which I took care of her during a weekend that Dr. 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 Reynolds that was uncomplicated. Her bowels reported to be moving per Pt but unsure if she understood the question. She doesn't appear to have any confusion, she does understand Syriac but there is still a language barrier there, her prior level of function was ambulation without the use of assisted devices and the plan would be to go to assisted living at discharge and Pt will be closely monitored during inpatient rehab stay and to gain confidence and become successful and discharge. 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 of Systems Musculoskeletal: leg pain Neurological: Confusion Objective Exam Vital Signs Vital Signs Date Time Temp Pulse Resp B/P (MAP) Pulse Ox O2 Delivery O2 Flow Rate FiO2 10/22/18 16:09 36.3 77 14 111/69 96 Room Air Capillary Refill : Less Than 3 Seconds General Appearance: WD/WN, Anxious, Chronically ill, Mild Distress HEENT: PERRL/EOMI, TMs Normal, Normal ENT Inspection Neck: Full Range of Motion, Normal Inspection, Non Tender Respiratory: Chest Non Tender, Lungs Clear, Normal Breath Sounds, No Accessory Muscle Use, No Respiratory Distress Cardiovascular: Regular Rate, Rhythm, No Edema, No Gallop, No JVD, No Murmur, Normal Peripheral Pulses Gastrointestinal: Normal Bowel Sounds, No Organomegaly, No Pulsatile Mass, Non Tender, Soft Back: Normal Inspection, No CVA Tenderness, No Vertebral Tenderness Extremity: Normal Capillary Refill, Normal Inspection, No Calf Tenderness, Other (decreased ROM right leg) Neurologic/Psychiatric: Alert, Oriented x3, No Motor/Sensory Deficits, Normal 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 FIM Transfers Therapy Code Descriptions/Definitions Functional [place] Measure: 0=Not Assessed/NA 4=Minimal Assistance 1=Total Assistance 5=Supervision or Setup 2=Maximal Assistance 6=Modified [place] 3=Moderate Assistance 7=Complete [place] Therapy Quality Codes: 6 Independent with activity with or without an assistive device 5 Patient requires set up or clean up by helper. Patient completes activity by themselves 4 Supervision or touching assist (CGA). [place] provide cues , steadying assist 3 The helper provides less than half the effort to complete the activity 2 The helper provides more than half the effort to complete the activity 1 Dependent. The helper does all the effort to complete an activity 7 Patient refused to complete or attempt activity 9 The patient did not perform the activity before the current illness or injury 88 Not attempted due to Medical conditions or safety concerns Transfers (B, C, W/C) (FIM): 5 Scootin Rollin Roll Left to Right (QC): 4 Supine to/from Sit: 5 Sit to/from Stand: 5 Sit to Lying (QC): 4 Sit to Stand (QC): 5 Chair/[place]-Ajrze Xfer(QC): 4 Bed to/from Chair: 5 Car Transfer (QC): 4 Gait Training Does the Patient Walk?: Yes Gait (FIM): 5 Distance (FIM): 3=150 ft Distance: 200' Walk 10 feet (QC): 5 Walk 50 ft with 2 Turns(QC): 5 Walk 150 ft (QC): 5 Walking 10ft/uneven surface-QC: 4 Gait Level of Assist: 5 Gait Persons Needed: 1 Gait Assistive Device: FWW Wheelchair Training Does the Pt Use a Wheelchair?: No Stair Training Stairs (FIM): 1 #of Steps: 1 1 Step (curb) (QC): 4 4 Steps (QC): 88 12 Steps (QC): 88 Level of Assist: 4 Mental Status/Objective Comprehension: 6 Expression: 6 Social Interaction: 6 Problem Solvin Memory: 5 ADL-Treatment Feedin Eating (QC): 5 Groomin (setup) Oral Hygiene (QC): 4 Bathin (CGA, help with R foot) Bathing Location: L Arm, R Arm, L Upper Leg, R Upper Leg, L Lower Leg (including foot), Chest, Abdomen, Buttocks, Perineal Area Shower/Bathe Self (QC): 3 Upper Extremity Dressin (setup) Upper Body Dressing (QC): 4 Lower Extremity Dressin (Help with socks off and on R LE, shoe on R LE and pants on over R foot. ) Lower Body Dressing (QC): 3 On/Off Footwear (QC): 1 Toiletin (SBA, tall toilet, grab bar) Toileting Hygiene (QC): 4 Toilet/Commode Transfer: 5 (SBA, tall toilet, grab bar) Toilet Transfer (QC): 4 Shower: 4 (CGA) Assessment/Plan Assessment and Plan Assess & Plan/Chief Complaint Plan: Pain control Monitor BP and HR Lovenox Monitor labs IRF protocol AL at DC Monitor confusion Fall risk Monitor dizziness which is chronic (1) Closed right hip fracture (2) Fall Status: Acute (3) Hip fracture, right (4) Dizziness Status: Acute (5) SAH (subarachnoid hemorrhage) Status: Acute (6) Anemia (7) Hyperlipidemia (8) Hypertension (9) Chronic vertigo Status: Acute CORBIN WINTER DO Oct 22, 2018 08:20
[2018-10-22] MEDS: ENOXAPARIN 40 MG/0.4 ML (LOVENOX) SYR SC SCH (08:44)
[2018-10-22] MEDS: SENNA W/DOCUSATE (SENOKOT S) TABLET PO SCH ×2 (09:05→21:09)
--- NOTE | 2018-10-22 09:49 | Occupational Ther Daily Note ---
OT Current Status-Daily Note Subjective Pt seen in room, up in recliner, agreeable to OT. Wants to shower this morning. No pain mentioned. Appearance Alert, cooperative Mental Status/Objective Therapy Code Descriptions/Definitions Functional [place] Measure: 0=Not Assessed/NA 4=Minimal Assistance 1=Total Assistance 5=Supervision or Setup 2=Maximal Assistance 6=Modified [place] 3=Moderate Assistance 7=Complete [place] ADL-Treatment Skilled cues for hand placement for sit to stand. Walked SBA to bathroom and toileted close SBA, with min assist toilet transfer (physical assist for walker and hand placement). Managed clothing and hygiene close SBA. Tall toilet, grab bar, FWW. Used dressing stick to take off slipper sock on R but needed help with ARNALDO hose. transferred into shower with SBA but skilled cues for hand placement. Setup for shower. Washed and dried all areas except back, using shower bench, grab bar, hand held shower, long handled sponge. CGA when standing to wash bottom. Did put weight on R leg when standing without cues but did need cues to sit back down to complete bathing. Pt educ use of sponge to dry R leg. Walked to toilet to dress. Pt educ use of dressing stick to don pants over R leg, with a l ittle assistance. Pt educ use of sock aid for donning slipper sock on R. Dressed upper body with setup. Stood SBA, FWW to pull pants up. Stood SBA, FWW at sink to brush teeth, with skilled cues to keep walker in front of her. Returned to recliner for exercises and to comb hair setup. Pt completed 10 reps 5 different bilat UE exercises with yellow theraband (low resistance), with pt educ on how to do each exercise. Able to track repetitions herself. Pt needed to toilet again. Recalled hand placement for transfer from recliner and hand/walker placement for toilet transfer. After washing hands SBA, FWW, pt returned to recliner and was left up in chair, chair alarm on, all needs met. Therapy Code Descriptions/Definitions Functional [place] Measure: 0=Not Assessed/NA 4=Minimal Assistance 1=Total Assistance 5=Supervision or Setup 2=Maximal Assistance 6=Modified [place] 3=Moderate Assistance 7=Complete [place] Therapy Quality Codes: 6 Independent with activity with or without an assistive device 5 Patient requires set up or clean up by helper. Patient completes activity by themselves 4 Supervision or touching assist (CGA). Tre[place]lers provide cues , steadying assist 3 The helper provides less than half the effort to complete the activity 2 The helper provides more than half the effort to complete the activity 1 Dependent. The helper does all the effort to complete an activity 7 Patient refused to complete or attempt activity 9 The patient did not perform the activity before the current illness or injury 88 Not attempted due to Medical conditions or safety concerns Grooming (FIM): 5 (SBA) Bathing (FIM): 4 (CGA) Upper Body (FIM): 5 (setup) Lower Body Dressing (FIM): 4 (min assist) Toileting (FIM): 5 (SBA) Toilet/Commode Transfer (FIM): 4 (min) Shower Transfer(FIM): 4 (CGA) Education OT Patient Education: Exercise program, Modified ADL techniques, Progress toward Goal/Update tx plan, Purpose of tx/functional activities, Safety issues, Transfer techniques, Use of adapted equipment Teaching Recipient: Patient Teaching Methods: Demonstration, Discussion Response to Teaching: Verbalize Understanding, Return Demonstration, Reinforcement Needed OT Short Term Goals Short Term Goals Time Frame: Oct 23, 2018 Bathing(FIM): 4 Upper Body Dressing(FIM): 5 Lower Body Dressing(FIM): 4 Toilet/Commode Transfer(FIM): 4 (CGA) Additional Short Term Goals: 1-Demonstrate ADL Tasks, 2-Verbalize Understanding, 3-ImproveStrength/Morgan 1=Demonstrate adherence to instructed precautions during ADL tasks. 2=Patient will verbalize/demonstrate understanding of assistive devices/modifications for ADL. 3=Patient will improve strength/tolerance for activity to enable patient to perform ADL's. OT Senior Care Goals Web Design Intern Goals Time Frame: Nov 06, 2018 Eating (FIM): 6 Eating (QC): 6 Groomin Oral Hygiene (QC): 6 Bathing(FIM): 5 Shower/Bathe Self (QC): 5 Upper Body Dressing(FIM): 6 Upper Body Dressing (QC): 6 Lower Body Dressing(FIM): 5 Lower Body Dressing (QC): 5 On/Off Footwear (QC): 5 Toileting(FIM): 6 Toileting Hygiene (QC): 6 Toilet/Commode Transfer(FIM): 6 Toilet/Commode Transfer (QC): 6 Shower Transfer(FIM): 5 Additional Goals: 1-Demonstrate ADL Tasks, 2-Verbalize Understanding, 3- ImproveStrength/Morgan 1=Demonstrate adherence to instructed precautions during ADL tasks. 2=Patient will verbalize/demonstrate understanding of assistive dev ices/modifications for ADL. 3=Patient will improve strength/tolerance for activity to enable patient to perform ADL's. OT Education/Plan Discharge Recommendations Plan/Recommendations: Continue POC Treatment Plan/Plan of Care Patient would benefit from OT for education, treatment and training to promote independence in ADL's, mobility, safety and/or upper extremity function for ADL's. Plan of Care: ADL Retraining, Functional Mobility, Group Exercise/Act as Ind, UE Funct Exercise/Act Treatment Duration: Nov 06, 2018 Frequency: At least 5 of 7 days/Wk (IRF) Estimated Hrs Per Day: 1.5 hours per day Agreement: Yes Rehab Potential: Fair Time/GCodes Start Time: 08:30 Stop Time: 09:32 Total Time Billed (hr/min): 62 Billed Treatment Time visit, 50 minute ADL, 12 minute exercise TARA LYON OT Oct 22, 2018 09:49
--- NOTE | 2018-10-22 10:58 | Physical Therapy Daily Note ---
PT Daily Note-Current Subjective Pt. shares that she is grateful for therapies and feels she is stronger. Rates pain in her right hip at 4/10 and feels "stiff" Pain Numeric Pain Scale: 3 Location: Right Location Body Site: Hip Pain Description: Ache Mental Status Patient Orientation: Normal For Age Transfers Therapy Code Descriptions/Definitions Functional [place] Measure: 0=Not Assessed/NA 4=Minimal Assistance 1=Total Assistance 5=Supervision or Setup 2=Maximal Assistance 6=Modified [place] 3=Moderate Assistance 7=Complete [place] Therapy Quality Codes: 6 Independent with activity with or without an assistive device 5 Patient requires set up or clean up by helper. Patient completes activity by themselves 4 Supervision or touching assist (CGA). [place] provide cues , steadying assist 3 The helper provides less than half the effort to complete the activity 2 The helper provides more than half the effort to complete the activity 1 Dependent. The helper does all the effort to complete an activity 7 Patient refused to complete or attempt activity 9 The patient did not perform the activity before the current illness or injury 88 Not attempted due to Medical conditions or safety concerns Transfers (B, C, W/C) (FIM): 4 Scootin Rollin Supine to/from Sit: 4 Sit to/from Stand: 4 Bed to/from Chair: 4 needs much instruction for wt shift for sit to stand . Weight Bearing Right Lower Extremity: Right Weight Bearing/Tolerated Left Lower Extremity: Left Full Weight Bearing Gait Training Does the Patient Walk?: Yes Gait (FIM): 5 Distance (FIM): 3=150 ft (175x2) Gait Level of Assist: 5 Gait Persons Needed: 1 Gait Assistive Device: FWW needs instruction for step length and to manage walker safely around objects, takes short uneven steps Stair Training Stair Training: Handrails/: 2 handrails Stairs (FIM): 2 #of Steps: 4 Stairs: Pattern: Step to Level of Assist: 4 needs sequence instruction Exercises Supine Ex: Ankle pumps, Quad Set, Rolling, Glut sets, Heel Slides, Short Arc Quads, Scooting, Straight leg raise (assisted right), Hip abd/add Supine Reps: 15 Seated Therapy Exercises: Ankle pumps, Sit to stand, Long arc quads Seated Reps: 10 Treatments seated alternating U&L extremity therex with some resistance x 10 m Assessment Current Status: Good Progress PT Casino Assistant Manager Goals Nursing Home Goals PT Casino Assistant Manager Goals Time Frame: Nov 10, 2018 Transfers (B,C,W/C) (FIM): 6 Sit to Lying (QC): 6 Lying-Sitting on Side/Bed(QC): 6 Sit to Stand (QC): 6 Rollin Roll Left to Right (QC): 6 Chair/Hyj-dl-Ohjvf Xfer(QC): 6 Car Transfer (QC): 6 Does the Patient Walk: Yes Gait (FIM): 6 Gait distance (FIM): 3=150 ft Distance: 250' Walk 10 feet (QC): 6 Walk 10ft-Uneven Surface(QC): 6 Walk 50ft with 2 Turns (QC): 6 Walk 150 ft (QC): 6 Gait Level of Assist: 6 Gait Assistive Device: FWW Stairs (FIM): 2 # of Steps: 4 1 Step (curb) (QC): 5 4 Steps (QC): 5 12 Steps (QC): 9 Stairs Level Of Assist: 5 Picking up an Object (QC): 5 PT Plan Treatment/Plan Treatment Plan: Continue Plan of Care Treatment Plan: Bed Mobility, Education, Functional Activity Morgan, Functional Strength, Gait, Safety, Therapeutic Exercise, Transfers Treatment Duration: Nov 10, 2018 Frequency: At least 5 of 7 days/Wk (IRF) Estimated Hrs Per Day: 1.5 hours per day Patient and/or Family Agrees t: Yes Safety Risks/Education Patient Education: Gait Training, Transfer Techniques, Steps, Correct Positioning, Disease Process, Safety Issues Teaching Recipient: Patient Teaching Methods: Demonstration, Discussion Response to Teaching: Verbalize Understanding, Return Demonstration, Reinforcement Needed Time/GCodes Time In: 1000 Time Out: 1100 Total Billed Treatment Time: 60 Total Billed Treatment 1,GT30m,EX15m,FA15m VICENTA CARPIO CAR FILLER Oct 22, 2018 10:58
--- NOTE | 2018-10-22 14:37 | Therapy Group Daily Note ---
Therapy Daily Group Note Patient Education Topic Other List Below (orientation to rehab, bed mobility and TRF techniques) Exercises LE Seated Exercise, UE Exercise Session Ratio (pt:therapist): 3:1 Goal of Session: Education on ARU Expectations, UE/LE Strengthing, Other (list) (gaining independence in bed mob and TRFs) Goal Met for this Session: Yes Pt Benefit of Group: Increased Functional Safety, Increased Functional Strength, Socialization Other/Notes Pt. participated in group PT OT session . Pt. ambulated with escort only. Pt. was social introducing herself and sharing with others. ARU orientation info was shared and education was focused on ways to be more independent regarding bed mobility and TRFs . Pts. were lead in U&L extremity exercises they can do in their beds or sitting up. Pt. ambulated back to room with call gabriel at hand. Start Time: 13:00 Stop Time: 14:10 Total Billed Treatment Time: 70 Total Billed Treatment 1,GRP VICENTA CARPIO INFORMATION DEVELOPER Oct 22, 2018 14:37
[2018-10-22 16:09] VITALS: BP 111/69
[2018-10-22 23:14] VITALS: BP 124/72
[2018-10-22] MEDS: HYDROcodone/APAP 5 MG/325 MG (LORTAB) TAB PO PRN (23:28)
[2018-10-23 06:23] VITALS: BP 109/67
[2018-10-23 08:00] VITALS: BP 99/64
--- NOTE | 2018-10-23 08:00 | NUR ---
DENIES PAIN AT REST. RATES IT A "5" WITH MOVEMENT IN RIGHT HIP. STATES "CAN SIT FOR LONGER PERIODS OF TIME NOW".
[2018-10-23] MEDS: ENOXAPARIN 40 MG/0.4 ML (LOVENOX) SYR SC SCH (08:07)
[2018-10-23] MEDS: SENNA W/DOCUSATE (SENOKOT S) TABLET PO SCH ×2 (08:07→19:29)
--- NOTE | 2018-10-23 08:14 | PM&R Progress Note ---
Subjective HPI/CC On Admission Date Seen by Provider: Oct 23, 2018 Time Seen by Provider: 08:30 Chief complaint: Debility following right hip fracture. HPI: This is a 73yo oriental female clinic Pt of Dr. Sweeney who has a history of chronic vertigo and multiple falls, most recently was a subdural hematoma of which I took care of her during a weekend that Dr. 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 Reynolds that was uncomplicated. Her bowels reported to be moving per Pt but unsure if she understood the question. She doesn't appear to have any confusion, she does understand [place] but there is still a language barrier there, her prior level of function was ambulation without the use of assisted devices and the plan would be to go to assisted living at discharge and Pt will be closely monitored during inpatient rehab stay and to gain confidence and become successful and discharge. Subjective/Events-last exam No alarm set off but she does get up and around ad-svetlana when she is not supposed to. Nasal spray was ordered by PCP. No pain is reported. Impulsive and still remains a fall risk. Will discuss disposition tomorrow in team meeting. Check meds and labs Reviewed therapy notes Conferred with fitness club manager of Systems Musculoskeletal: leg pain Neurological: Confusion Objective Exam Vital Signs Vital Signs Date Time Temp Pulse Resp B/P (MAP) Pulse Ox O2 Delivery O2 Flow Rate FiO2 10/23/18 17:54 36.6 76 18 136/74 (94) 97 Room Air Capillary Refill : Less Than 3 Seconds General Appearance: WD/WN, Anxious, Chronically ill, Mild Distress HEENT: PERRL/EOMI, TMs Normal, Normal ENT Inspection Neck: Full Range of Motion, Normal Inspection, Non Tender Respiratory: Chest Non Tender, Lungs Clear, Normal Breath Sounds, No Accessory Muscle Use, No Respiratory Distress Cardiovascular: Regular Rate, Rhythm, No Edema, No Gallop, No JVD, No Murmur, Normal Peripheral Pulses Gastrointestinal: Normal Bowel Sounds, No Organomegaly, No Pulsatile Mass, Non Tender, Soft Back: Normal Inspection, No CVA Tenderness, No Vertebral Tenderness Extremity: Normal Capillary Refill, Normal Inspection, No Calf Tenderness, Other (decreased ROM right leg) Neurologic/Psychiatric: Alert, Oriented x3, No Motor/Sensory Deficits, Normal Mood/Affect, block press operator II-XII Norm as Tested, Disoriented Skin: Normal Color, Warm/Dry Lymphatic: No Adenopathy Results/Procedures Lab Patient resulted labs reviewed. FIM Transfers Therapy Code Descriptions/Definitions Functional [place] Measure: 0=Not Assessed/NA 4=Minimal Assistance 1=Total Assistance 5=Supervision or Setup 2=Maximal Assistance 6=Modified [place] 3=Moderate Assistance 7=Complete [place] Therapy Quality Codes: 6 Independent with activity with or without an assistive device 5 Patient requires set up or clean up by helper. Patient completes activity by themselves 4 Supervision or touching assist (CGA). [place] provide cues , steadying assist 3 The helper provides less than half the effort to complete the activity 2 The helper provides more than half the effort to complete the activity 1 Dependent. The helper does all the effort to complete an activity 7 Patient refused to complete or attempt activity 9 The patient did not perform the activity before the current illness or injury 88 Not attempted due to Medical conditions or safety concerns Transfers (B, C, W/C) (FIM): 4 Scootin Rollin Roll Left to Right (QC): 4 Supine to/from Sit: 4 Sit to/from Stand: 4 Sit to Lying (QC): 4 Sit to Stand (QC): 5 Chair/Ywt-ed-Tmjwl Xfer(QC): 4 Bed to/from Chair: 4 Car Transfer (QC): 4 Gait Training Does the Patient Walk?: Yes Gait (FIM): 5 Distance (FIM): 3=150 ft (175x2) Distance: 200' Walk 10 feet (QC): 5 Walk 50 ft with 2 Turns(QC): 5 Walk 150 ft (QC): 5 Walking 10ft/uneven surface-QC: 4 Gait Level of Assist: 5 Gait Persons Needed: 1 Gait Assistive Device: FWW Wheelchair Training Does the Pt Use a Wheelchair?: No Stair Training Stair Training: Handrails/: 2 handrails Stairs (FIM): 2 #of Steps: 4 1 Step (curb) (QC): 4 4 Steps (QC): 88 12 Steps (QC): 88 Stairs: Pattern: Step to Level of Assist: 4 Mental Status/Objective Comprehension: 6 Expression: 6 Social Interaction: 6 Problem Solvin Memory: 5 ADL-Treatment Feedin Eating (QC): 5 Groomin (SBA) Oral Hygiene (QC): 4 Bathin (CGA) Bathing Location: L Arm, R Arm, L Upper Leg, R Upper Leg, L Lower Leg (including foot), Chest, Abdomen, Buttocks, Perineal Area Shower/Bathe Self (QC): 3 Upper Extremity Dressin (setup) Upper Body Dressing (QC): 4 Lower Extremity Dressin (min assist) Lower Body Dressing (QC): 3 On/Off Footwear (QC): 1 Toiletin (SBA) Toileting Hygiene (QC): 4 Toilet/Commode Transfer: 4 (min) Toilet Transfer (QC): 4 Shower: 4 (CGA) Assessment/Plan Assessment and Plan Assess & Plan/Chief Complaint Plan: Pain control Monitor BP and HR Lovenox Monitor labs IRF protocol AL at DC Monitor confusion Fall risk Monitor dizziness which is chronic (1) Closed right hip fracture (2) Fall Status: Acute (3) Hip fracture, right (4) Dizziness Status: Acute (5) SAH (subarachnoid hemorrhage) Status: Acute (6) Anemia (7) Hyperlipidemia (8) Hypertension (9) Chronic vertigo Status: Acute CORBIN WINTER DO Oct 23, 2018 08:14
--- NOTE | 2018-10-23 10:00 | NUR ---
DR. ESTRELLA HERE TO SEE PATIENT.
[2018-10-23 11:00] VITALS: BP 103/66
--- NOTE | 2018-10-23 12:11 | Physical Therapy Daily Note ---
PT Daily Note-Current Subjective Pt sitting in recliner upon arrival. Pt agrees to PT. Pain Location: No Pain Reported Mental Status Patient Orientation: Person, Place, Situation Transfers Therapy Code Descriptions/Definitions Functional [place] Measure: 0=Not Assessed/NA 4=Minimal Assistance 1=Total Assistance 5=Supervision or Setup 2=Maximal Assistance 6=Modified [place] 3=Moderate Assistance 7=Complete [place] Therapy Quality Codes: 6 Independent with activity with or without an assistive device 5 Patient requires set up or clean up by helper. Patient completes activity by themselves 4 Supervision or touching assist (CGA). [place] provide cues , steadying assist 3 The helper provides less than half the effort to complete the activity 2 The helper provides more than half the effort to complete the activity 1 Dependent. The helper does all the effort to complete an activity 7 Patient refused to complete or attempt activity 9 The patient did not perform the activity before the current illness or injury 88 Not attempted due to Medical conditions or safety concerns Scootin Supine to/from Sit: 5 Sit to/from Stand: 5 Sit to Lying (QC): 5 Sit to Stand (QC): 5 Weight Bearing Right Lower Extremity: Right Weight Bearing/Tolerated Left Lower Extremity: Left Full Weight Bearing Gait Training Does the Patient Walk?: Yes Gait (FIM): 5 Distance (FIM): 3=150 ft Distance: 200' Walk 10 feet (QC): 5 Walk 50 ft with 2 Turns(QC): 5 Walk 150 ft (QC): 5 Gait Level of Assist: 5 Gait Persons Needed: 1 Gait Assistive Device: FWW Pt walks with antalgic gait pattern when advancing R LE but when asked pt rep orts no pain. Wheelchair Training Does the Pt Use a Wheelchair?: No Stair Training Stair Training: Handrails/: 2 handrails #of Steps: 4 1 Step (curb) (QC): 4 4 Steps (QC): 4 Stairs: Pattern: Step to Level of Assist: 4 Exercises Seated Therapy Exercises: Ankle pumps, Long arc quads, Hip flexion, Kicking activity, Glut set Seated Reps: 15 NuStep Minutes: 15 NuStep Workload: 5 Treatments Pt transfers from recliner to standing and ambulates in hallway. Pt uses NuStep for 15m at WL 5 then short RB before completing Seated EX in chair. Pt ambulates in hallway then returns to room to rest. GRAIN FARMER assists with ordering pt's lunch for the pt. Pt has all needs met, call light in hand. Assessment Current Status: Good Progress Pt needs redirection at times but is improving with strength and independence of tasks especially transfers and ambulation. PT Blanching Machine Operator Goals Skilled Nursing Goals PT Blanching Machine Operator Goals Time Frame: Nov 10, 2018 Transfers (B,C,W/C) (FIM): 6 Sit to Lying (QC): 6 Lying-Sitting on Side/Bed(QC): 6 Sit to Stand (QC): 6 Rollin Roll Left to Right (QC): 6 Chair/Tiu-fo-Sfunf Xfer(QC): 6 Car Transfer (QC): 6 Does the Patient Walk: Yes Gait (FIM): 6 Gait distance (FIM): 3=150 ft Distance: 250' Walk 10 feet (QC): 6 Walk 10ft-Uneven Surface(QC): 6 Walk 50ft with 2 Turns (QC): 6 Walk 150 ft (QC): 6 Gait Level of Assist: 6 Gait Assistive Device: FWW Stairs (FIM): 2 # of Steps: 4 1 Step (curb) (QC): 5 4 Steps (QC): 5 12 Steps (QC): 9 Stairs Level Of Assist: 5 Picking up an Object (QC): 5 PT Plan Problem List Problem List: Activity Tolerance, Functional Strength, Safety, Gait Treatment/Plan Treatment Plan: Continue Plan of Care Treatment Plan: Bed Mobility, Education, Functional Activity Morgan, Functional Strength, Gait, Safety, Therapeutic Exercise, Transfers Treatment Duration: Nov 10, 2018 Frequency: At least 5 of 7 days/Wk (IRF) Estimated Hrs Per Day: 1.5 hours per day Patient and/or Family Agrees t: Yes Safety Risks/Education Patient Education: Gait Training, Transfer Techniques, Correct Positioning, Safety Issues Teaching Recipient: Patient Teaching Methods: Discussion Response to Teaching: Verbalize Understanding Time/GCodes Time In: 945 Time Out: 1045 Total Billed Treatment Time: 60 Total Billed Treatment 1, EX x2 (30m), GT (20m) & FA (10m) MONICAMICHELLETIMOTHY GRAIN FARMER Oct 23, 2018 12:10
--- NOTE | 2018-10-23 12:14 | Occupational Ther Daily Note ---
OT Current Status-Daily Note Subjective Pt seen in recliner chair, agreeable to OT tx session. Pt stated some minor pain in hip. Mental Status/Objective Patient Orientation: Normal For Age Therapy Code Descriptions/Definitions Functional [place] Measure: 0=Not Assessed/NA 4=Minimal Assistance 1=Total Assistance 5=Supervision or Setup 2=Maximal Assistance 6=Modified [place] 3=Moderate Assistance 7=Complete [place] ADL-Treatment Therapy Code Descriptions/Definitions Functional [place] Measure: 0=Not Assessed/NA 4=Minimal Assistance 1=Total Assistance 5=Supervision or Setup 2=Maximal Assistance 6=Modified [place] 3=Moderate Assistance 7=Complete [place] Therapy Quality Codes: 6 Independent with activity with or without an assistive device 5 Patient requires set up or clean up by helper. Patient completes activity by themselves 4 Supervision or touching assist (CGA). [place] provide cues , steadying assist 3 The helper provides less than half the effort to complete the activity 2 The helper provides more than half the effort to complete the activity 1 Dependent. The helper does all the effort to complete an activity 7 Patient refused to complete or attempt activity 9 The patient did not perform the activity before the current illness or injury 88 Not attempted due to Medical conditions or safety concerns Eating (FIM): 7 Eating (QC): 6 Lower Body Dressing (FIM): 5 (SBA for safety with cues to pull up all the way on R side) Lower Body Dressing (QC): 4 (cues) Toileting (FIM): 5 (SBA, cues for pulling up underwear) Toileting Hygiene (QC): 5 (SBA during standing, use of FWW) Transfers (B, C, W/C) (FIM): 5 (SBA) Toilet/Commode Transfer (FIM): 5 (SBA) Toilet Transfer (QC): 4 (SBA) Other Treatment Pt completed ADL routine, completed toileting and hand washing. Pt agrees to go outside for session. Pt utilizes FWW to ambulate, pt able to navigate environem tn with min cues. Pt walks through gift shop and aisles with mod cues for FWW placement for safety while looking/ manipulating items and for safety navigating environment. Pt given multiple cues to go around table rather than walk through small space. Pt continued, walking through small space while manipulating walker, required CGA for safety. Pt ambulated outside, able to complete different terrains with good control. Pt sat on bench, pt spoke of and burden of caring for him due to cognitive condition. Pt educated on caregiver assistance and assisted living arrangements. Pt stated understanding, but that would not go to assisted living but would prefer home. Pt states caregiver would ease her burden. Pt completed walking back to elevator, able to navigate environment with success and no cues for navigation, min cues for safety to take FWW with her, as she leaned across FWW to move forward to push elevator button. Pt goes to bathroom, requires cues for underwear placement but able to do with CGA for balance. Pt returns to recliner chair with all needs met/ call light in reach. Education OT Patient Education: Correct positioning, Energy conservation, Modified ADL techniques, Purpose of tx/functional activities, Rehab process, Safety issues, Transfer techniques, Use of adapted equipment Teaching Recipient: Patient Teaching Methods: Demonstration, Discussion Response to Teaching: Verbalize Understanding, Return Demonstration OT Short Term Goals Short Term Goals Time Frame: Oct 23, 2018 Bathing(FIM): 4 Upper Body Dressing(FIM): 5 Lower Body Dressing(FIM): 4 Toilet/Commode Transfer(FIM): 4 (CGA) Additional Short Term Goals: 1-Demonstrate ADL Tasks, 2-Verbalize Understanding, 3-ImproveStrength/Morgan 1=Demonstrate adherence to instructed precautions during ADL tasks. 2=Patient will verbalize/demonstrate understanding of assistive devices/modifications for ADL. 3=Patient will improve strength/tolerance for activity to enable patient to perform ADL's. OT Store Hand Goals Shelter Goals Time Frame: Nov 06, 2018 Eating (FIM): 6 Eating (QC): 6 Groomin Oral Hygiene (QC): 6 Bathing(FIM): 5 Shower/Bathe Self (QC): 5 Upper Body Dressing(FIM): 6 Upper Body Dressing (QC): 6 Lower Body Dressing(FIM): 5 Lower Body Dressing (QC): 5 On/Off Footwear (QC): 5 Toileting(FIM): 6 Toileting Hygiene (QC): 6 Toilet/Commode Transfer(FIM): 6 Toilet/Commode Transfer (QC): 6 Shower Transfer(FIM): 5 Additional Goals: 1-Demonstrate ADL Tasks, 2-Verbalize Understanding, 3- ImproveStrength/Morgan 1=Demonstrate adherence to instructed precautions during ADL tasks. 2=Patient will verbalize/demonstrate understanding of assistive devices/modifications for ADL. 3=Patient will improve strength/tolerance for activity to enable patient to perform ADL's. OT Education/Plan Problem List/Assessment Assessment: Decreased Activ Tolerance, Decreased Safety Aware, Impaired Funct Balance, Impaired I ADL's, Impaired Self-Care Skills Discharge Recommendations Plan/Recommendations: Continue POC Treatment Plan/Plan of Care Treatment,Training & Education: Yes Patient would benefit from OT for education, treatment and training to promote independence in ADL's, mobility, safety and/or upper extremity function for ADL's. Plan of Care: ADL Retraining, Functional Mobility, Group Exercise/Act as Ind, UE Funct Exercise/Act Treatment Duration: Nov 06, 2018 Frequency: At least 5 of 7 days/Wk (IRF) Estimated Hrs Per Day: 1.5 hours per day Agreement: Yes Rehab Potential: Fair Time/GCodes Start Time: 08:45 Stop Time: 09:45 Total Time Billed (hr/min): 60 Billed Treatment Time 1 ADL x2 (30), FAx2 (30) BLAS HERNANDEZ OTR Oct 23, 2018 12:14
--- NOTE | 2018-10-23 12:23 | Occupational Ther Daily Note ---
OT Current Status-Daily Note Subjective Pt seen in bed, nursing present. Pt able to turn body to L side for bandage replacement. Pt agreeable to OT tx session. Mental Status/Objective Patient Orientation: Normal For Age Therapy Code Descriptions/Definitions Functional [place] Measure: 0=Not Assessed/NA 4=Minimal Assistance 1=Total Assistance 5=Supervision or Setup 2=Maximal Assistance 6=Modified [place] 3=Moderate Assistance 7=Complete [place] ADL-Treatment Therapy Code Descriptions/Definitions Functional [place] Measure: 0=Not Assessed/NA 4=Minimal Assistance 1=Total Assistance 5=Supervision or Setup 2=Maximal Assistance 6=Modified [place] 3=Moderate Assistance 7=Complete [place] Therapy Quality Codes: 6 Independent with activity with or without an assistive device 5 Patient requires set up or clean up by helper. Patient completes activity by themselves 4 Supervision or touching assist (CGA). [place] provide cues , steadying assist 3 The helper provides less than half the effort to complete the activity 2 The helper provides more than half the effort to complete the activity 1 Dependent. The helper does all the effort to complete an activity 7 Patient refused to complete or attempt activity 9 The patient did not perform the activity before the current illness or injury 88 Not attempted due to Medical conditions or safety concerns Grooming (FIM): 5 (SBA for hand hygiene. Pt requires cues to continue moving wa lker with pt rather than reaching from afar/ across walker. Pt brings walker closer to sink to perform hand hygiene.) Lower Body Dressing (FIM): 5 (cues for bringing L side of underwear past hip. Prior to cues, pt keeps underwear under bandage and does not attempt to pull up.) Lower Body Dressing (QC): 4 (cues) On/Off Footwear (QC): 3 (Pt requires mod A for shoe donning. Pt denies use of elastic shoelaces, states she would rather not use them. Pt able to place shoes on, requires assist for heel placement and dressing stick placement, requires complete assist to tie shoes. ) Toileting (FIM): 5 (SBA) Toileting Hygiene (QC): 4 (SBA) Transfers (B, C, W/C) (FIM): 5 (SUP- bed mob + increased timeSBA- sit to stand, use of FWW) Toilet/Commode Transfer (FIM): 5 (SBA) Toilet Transfer (QC): 4 Other Treatment Pt ambulates to therapy gym, stating tightness in R hip when standing. Pt states she did not work too hard, nor rest too much within past day. Pt educated on gentle stretch and standing during activities for stretch and endurance during ADLs. Pt completes arm arc with 4 reps BUE at 90* shoulder flexion and 6 reps BUE at ~120* shoulder flexion; pt stood for total of 12 minutes. Pt able to follow directions with good understanding. Pt ambulates back to room with SBA/ FWW to bathroom to complete toilet routine, sits in recliner chair with all needs met and call light in reach. Pt states R hip is still "tight" but less than before session. Education OT Patient Education: Correct positioning, Exercise program, Modified ADL techniques, Purpose of tx/functional activities, Rehab process, Safety issues, Transfer techniques, Use of adapted equipment Teaching Recipient: Patient Teaching Methods: Demonstration, Discussion Response to Teaching: Verbalize Understanding, Return Demonstration OT Short Term Goals Short Term Goals Time Frame: Oct 23, 2018 Bathing(FIM): 4 Upper Body Dressing(FIM): 5 Lower Body Dressing(FIM): 4 Toilet/Commode Transfer(FIM): 4 (CGA) Additional Short Term Goals: 1-Demonstrate ADL Tasks, 2-Verbalize Understanding, 3-ImproveStrength/Morgan 1=Demonstrate adherence to instructed precautions during ADL tasks. 2=Patient will verbalize/demonstrate understanding of assistive devices/modifications for ADL. 3=Patient will improve strength/tolerance for activity to enable patient to perform ADL's. OT In Flight Refueling System Repairer Goals In Flight Refueling System Repairer Goals Time Frame: Nov 06, 2018 Eating (FIM): 6 Eating (QC): 6 Groomin Oral Hygiene (QC): 6 Bathing(FIM): 5 Shower/Bathe Self (QC): 5 Upper Body Dressing(FIM): 6 Upper Body Dressing (QC): 6 Lower Body Dressing(FIM): 5 Lower Body Dressing (QC): 5 On/Off Footwear (QC): 5 Toileting(FIM): 6 Toileting Hygiene (QC): 6 Toilet/Commode Transfer(FIM): 6 Toilet/Commode Transfer (QC): 6 Shower Transfer(FIM): 5 Additional Goals: 1-Demonstrate ADL Tasks, 2-Verbalize Understanding, 3- ImproveStrength/Morgan 1=Demonstrate adherence to instructed precautions during ADL tasks. 2=Patient will verbalize/demonstrate understanding of assistive devices/modifications for ADL. 3=Patient will improve strength/tolerance for activity to enable patient to perform ADL's. OT Education/Plan Problem List/Assessment Assessment: Decreased Activ Tolerance, Decreased Safety Aware, Decreased UE Strength, Impaired Funct Balance, Impaired I ADL's, Impaired Self-Care Skills Discharge Recommendations Plan/Recommendations: Continue POC Treatment Plan/Plan of Care Treatment,Training & Education: Yes Patient would benefit from OT for education, treatment and training to promote independence in ADL's, mobility, safety and/or upper extremity function for ADL's. Plan of Care: ADL Retraining, Functional Mobility, Group Exercise/Act as Ind, UE Funct Exercise/Act Treatment Duration: Nov 06, 2018 Frequency: At least 5 of 7 days/Wk (IRF) Estimated Hrs Per Day: 1.5 hours per day Agreement: Yes Rehab Potential: Fair Time/GCodes Start Time: 11:00 Stop Time: 11:30 Total Time Billed (hr/min): 30 Billed Treatment Time 1 ADL FA (30) BLAS HERNANDEZ OTR Oct 23, 2018 12:23
--- NOTE | 2018-10-23 14:40 | Physical Therapy Daily Note ---
PT Daily Note-Current Subjective Patient in bathroom with nurse aide pre tx, agrees to PT, has no complaints of pain. Appearance Patient sitting in recliner post tx with nurse call, anmol, all needs met. Mental Status Patient Orientation: Person, Place, Situation Transfers Therapy Code Descriptions/Definitions Functional [place] Measure: 0=Not Assessed/NA 4=Minimal Assistance 1=Total Assistance 5=Supervision or Setup 2=Maximal Assistance 6=Modified [place] 3=Moderate Assistance 7=Complete [place] Therapy Quality Codes: 6 Independent with activity with or without an assistive device 5 Patient requires set up or clean up by helper. Patient completes activity by themselves 4 Supervision or touching assist (CGA). [place] provide cues , steadying assist 3 The helper provides less than half the effort to complete the activity 2 The helper provides more than half the effort to complete the activity 1 Dependent. The helper does all the effort to complete an activity 7 Patient refused to complete or attempt activity 9 The patient did not perform the activity before the current illness or injury 88 Not attempted due to Medical conditions or safety concerns Transfers (B, C, W/C) (FIM): 5 Sit to/from Stand: 5 Bed to/from Chair: 5 Weight Bearing Right Lower Extremity: Right Weight Bearing/Tolerated Left Lower Extremity: Left Full Weight Bearing Gait Training Gait (FIM): 5 Distance: 150'x2 Gait Level of Assist: 5 Gait Persons Needed: 1 Gait Assistive Device: FWW slow but steady ambulation, short steps Exercises Standing: Hip Abduction, Heel/toe raises, Marching, Mini squats Standing Reps: 15 LAQ alternating for 5 min with 2# ankle weights Assessment Current Status: Fair Progress improving LE strength PT Fpc Goals Oral And Maxillofacial Pathologist Goals PT Fpc Goals Time Frame: Nov 10, 2018 Transfers (B,C,W/C) (FIM): 6 Sit to Lying (QC): 6 Lying-Sitting on Side/Bed(QC): 6 Sit to Stand (QC): 6 Rollin Roll Left to Right (QC): 6 Chair/Cug-wq-[place]ma Xfer(QC): 6 Car Transfer (QC): 6 Does the Patient Walk: Yes Gait (FIM): 6 Gait distance (FIM): 3=150 ft Distance: 250' Walk 10 feet (QC): 6 Walk 10ft-Uneven Surface(QC): 6 Walk 50ft with 2 Turns (QC): 6 Walk 150 ft (QC): 6 Gait Level of Assist: 6 Gait Assistive Device: FWW Stairs (FIM): 2 # of Steps: 4 1 Step (curb) (QC): 5 4 Steps (QC): 5 12 Steps (QC): 9 Stairs Level Of Assist: 5 Picking up an Object (QC): 5 PT Plan Problem List Problem List: Activity Tolerance, Functional Strength, Safety, Balance, Gait, Transfer, Bed Mobility, ROM Treatment/Plan Treatment Plan: Continue Plan of Care Treatment Plan: Bed Mobility, Education, Functional Activity [place], Functional Strength, Gait, Safety, Therapeutic Exercise, Transfers Treatment Duration: Nov 10, 2018 Frequency: At least 5 of 7 days/Wk (IRF) Estimated Hrs Per Day: 1.5 hours per day Patient and/or Family Agrees t: Yes Safety Risks/Education Patient Education: Gait Training, Transfer Techniques, Correct Positioning, Safety Issues Teaching Recipient: Patient Teaching Methods: Demonstration, Discussion Response to Teaching: Reinforcement Needed Time/GCodes Time In: 1410 Time Out: 1440 Total Billed Treatment Time: 30 Total Billed Treatment 1 visit EX 15' GT 15' RAMAKRISHNA ARROYO PT Oct 23, 2018 14:40
[2018-10-23 17:54] VITALS: BP 136/74
[2018-10-24 05:18] VITALS: BP 127/78
--- NOTE | 2018-10-24 08:00 | NUR ---
STATES DR. ESTRELLA SAID YESTERDAY THAT SHE WOULD ORDER A NOSE SPRAY. DR. ESTRELLA TEXTED TO REQUEST NOSE SPRAY. OTHERWISE, NO COMPLAINTS.
[2018-10-24] MEDS: SENNA W/DOCUSATE (SENOKOT S) TABLET PO SCH ×2 (08:20→19:57)
[2018-10-24] MEDS: ENOXAPARIN 40 MG/0.4 ML (LOVENOX) SYR SC SCH (08:20)
--- NOTE | 2018-10-24 08:50 | PM&R Progress Note ---
Subjective HPI/CC On Admission Date Seen by Provider: Oct 24, 2018 Time Seen by Provider: 09:00 Chief complaint: Debility following right hip fracture. HPI: This is a 73yo oriental female clinic Pt of Dr. Sweeney who has a history of chronic vertigo and multiple falls, most recently was a subdural hematoma of which I took care of her during a weekend that Dr. 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 Reynolds that was uncomplicated. Her bowels reported to be moving per Pt but unsure if she understood the question. She doesn't appear to have any confusion, she does understand Italian but there is still a language barrier there, her prior level of function was ambulation without the use of assisted devices and the plan would be to go to assisted living at discharge and Pt will be closely monitored during inpatient rehab stay and to gain confidence and become successful and discharge. Subjective/Events-last exam Nasal spray will be ordered by PCP Bowels are moving Very impulsive Needs 29/08 supervision Incision looks good Stand by assist most plaves Updated PCP on her insistence on going home and hopefully we can talk her into assisted living Check meds and labs Reviewed therapy notes Conferred with transportation specialist of Systems Musculoskeletal: leg pain Objective Exam Vital Signs Vital Signs Date Time Temp Pulse Resp B/P (MAP) Pulse Ox O2 Delivery O2 Flow Rate FiO2 10/24/18 20:37 Room Air 10/24/18 17:23 36.9 82 18 144/80 (101) 97 Capillary Refill : Less Than 3 Seconds General Appearance: WD/WN, Anxious, Chronically ill, Mild Distress HEENT: PERRL/EOMI, TMs Normal, Normal ENT Inspection Neck: Full Range of Motion, Normal Inspection, Non Tender Respiratory: Chest Non Tender, Lungs Clear, Normal Breath Sounds, No Accessory Muscle Use, No Respiratory Distress Cardiovascular: Regular Rate, Rhythm, No Edema, No Gallop, No JVD, No Murmur, Normal Peripheral Pulses Gastrointestinal: Normal Bowel Sounds, No Organomegaly, No Pulsatile Mass, Non Tender, Soft Back: Normal Inspection, No CVA Tenderness, No Vertebral Tenderness Extremity: Normal Capillary Refill, Normal Inspection, No Calf Tenderness, Other (decreased ROM right leg) Neurologic/Psychiatric: Alert, Oriented x3, No Motor/Sensory Deficits, Normal Mood/Affect, director of regulatory affairs II-XII Norm as Tested, Disoriented Skin: Normal Color, Warm/Dry Lymphatic: No Adenopathy Results/Procedures Lab Patient resulted labs reviewed. FIM Transfers Therapy Code Descriptions/Definitions Functional [place] Measure: 0=Not Assessed/NA 4=Minimal Assistance 1=Total Assistance 5=Supervision or Setup 2=Maximal Assistance 6=Modified [place] 3=Moderate Assistance 7=Complete [place] Therapy Quality Codes: 6 Independent with activity with or without an assistive device 5 Patient requires set up or clean up by helper. Patient completes activity by themselves 4 Supervision or touching assist (CGA). [place] provide cues , steadying assist 3 The helper provides less than half the effort to complete the activity 2 The helper provides more than half the effort to complete the activity 1 Dependent. The helper does all the effort to complete an activity 7 Patient refused to complete or attempt activity 9 The patient did not perform the activity before the current illness or inju ry 88 Not attempted due to Medical conditions or safety concerns Transfers (B, C, W/C) (FIM): 5 Scootin Rollin Roll Left to Right (QC): 4 Supine to/from Sit: 5 Sit to/from Stand: 5 Sit to Lying (QC): 5 Sit to Stand (QC): 5 Chair/Qxu-ic-Jcmwb Xfer(QC): 4 Bed to/from Chair: 5 Car Transfer (QC): 4 Gait Training Does the Patient Walk?: Yes Gait (FIM): 5 Distance (FIM): 3=150 ft Distance: 150'x2 Walk 10 feet (QC): 5 Walk 50 ft with 2 Turns(QC): 5 Walk 150 ft (QC): 5 Walking 10ft/uneven surface-QC: 4 Gait Level of Assist: 5 Gait Persons Needed: 1 Gait Assistive Device: FWW Wheelchair Training Does the Pt Use a Wheelchair?: No Stair Training Stair Training: Handrails/: 2 handrails Stairs (FIM): 2 #of Steps: 4 1 Step (curb) (QC): 4 4 Steps (QC): 4 12 Steps (QC): 88 Stairs: Pattern: Step to Level of Assist: 4 Mental Status/Objective Comprehension: 6 Expression: 6 Social Interaction: 6 Problem Solvin Memory: 5 ADL-Treatment Feedin Eating (QC): 6 Groomin (SBA for hand hygiene. Pt requires cues to continue moving walker with pt rather than reaching from afar/ across walker. Pt brings walker closer to sink to perform hand hygiene.) Oral Hygiene (QC): 4 Bathin (CGA) Bathing Location: L Arm, R Arm, L Upper Leg, R Upper Leg, L Lower Leg (including foot), Chest, Abdomen, Buttocks, Perineal Area Shower/Bathe Self (QC): 3 Upper Extremity Dressin (setup) Upper Body Dressing (QC): 4 Lower Extremity Dressin (cues for bringing L side of underwear past hip. Prior to cues, pt keeps underwear under bandage and does not attempt to pull up.) Lower Body Dressing (QC): 4 (cues) On/Off Footwear (QC): 3 (Pt requires mod A for shoe donning. Pt denies use of elastic shoelaces, states she would rather not use them. Pt able to place shoes on, requires assist for heel placement and dressing stick placement, requires complete assist to tie shoes. ) Toiletin (SBA) Toileting Hygiene (QC): 4 (SBA) Toilet/Commode Transfer: 5 (SBA) Toilet Transfer (QC): 4 Shower: 4 (CGA) Assessment/Plan Assessment and Plan Assess & Plan/Chief Complaint Plan: Pain control Monitor BP and HR Lovenox Monitor labs IRF protocol AL at DC Monitor confusion Fall risk Monitor dizziness which is chronic Dispo? (1) Closed right hip fracture (2) Fall Status: Acute (3) Hip fracture, right (4) Dizziness Status: Acute (5) SAH (subarachnoid hemorrhage) Status: Acute (6) Anemia (7) Hyperlipidemia (8) Hypertension (9) Chronic vertigo Status: Acute CORBIN WINTER DO Oct 24, 2018 08:50
--- NOTE | 2018-10-24 09:46 | Occupational Ther Daily Note ---
OT Current Status-Daily Note Subjective Pt seen in chair, agreeable to OT tx session. Pt states no pain, but "tightness" in L anterior hip. Mental Status/Objective Patient Orientation: Normal For Age Therapy Code Descriptions/Definitions Functional [place] Measure: 0=Not Assessed/NA 4=Minimal Assistance 1=Total Assistance 5=Supervision or Setup 2=Maximal Assistance 6=Modified [place] 3=Moderate Assistance 7=Complete [place] ADL-Treatment Therapy Code Descriptions/Definitions Functional [place] Measure: 0=Not Assessed/NA 4=Minimal Assistance 1=Total Assistance 5=Supervision or Setup 2=Maximal Assistance 6=Modified [place] 3=Moderate Assistance 7=Complete [place] Therapy Quality Codes: 6 Independent with activity with or without an assistive device 5 Patient requires set up or clean up by helper. Patient completes activity by themselves 4 Supervision or touching assist (CGA). [place] provide cues , steadying assist 3 The helper provides less than half the effort to complete the activity 2 The helper provides more than half the effort to complete the activity 1 Dependent. The helper does all the effort to complete an activity 7 Patient refused to complete or attempt activity 9 The patient did not perform the activity before the current illness or injury 88 Not attempted due to Medical conditions or safety concerns Eating (FIM): 7 Eating (QC): 6 Grooming (FIM): 6 (Completes hair grooming sitting in chair. ) Bathing (FIM): 5 (SBA and cues for use of long handled sponge. Pt states she will need assist with back washing, pt educated on use of long handled sponge during bathing in order to complete with more IND. Pt demonstrates understanding, completes showering with SBA.) Upper Body (FIM): 6 (completes sitting on bath chair, pt able to gather clothing from closet.) Upper Body Dressing (QC): 6 Lower Body Dressing (FIM): 4 (min cues for use of crap shooter/ sock aide during LB dressing task. Pt able to complete with intermittent assist while sitting on bath chair.) Lower Body Dressing (QC): 4 On/Off Footwear (QC): 4 (cues for use of sock aide.) Toileting (FIM): 5 (SBA for safety during shalonda hygiene in stance. Pt utilized FWW for stability.) Toileting Hygiene (QC): 4 (SBA) Transfers (B, C, W/C) (FIM): 4 (SBA for safety. Bed mobility with increased cues for correct hand placement and mobility) Toilet/Commode Transfer (FIM): 5 (SBA) Toilet Transfer (QC): 4 (SBA) Tub Transfer(FIM): 5 (SBA) Other Treatment Pt completes morning ADL routine. Pt gathered clothing items from closet, unable to navigate in small spaces safely. Pt given cues to stop/ adjust FWW, pt continued to move walker in side-ways fashion while following FWW with CGA from OT. Pt able to navigate small space with cues on return. Pt states she needs to complete laundry. Pt completes laundry routine with cues for directions. Pt return demonstrates abilities to take clothing from dryer using crap shooter. Pt required cues for safety with use of FWW during reaching tasks, return demonstrated 2x by keeping stabilizing hand on washer rather than FWW. Pt completes gathering items from floor and high-levels with crap shooter, pt completes with SBA to CGA. Pt requires cues for balance and completion of tasks with safe center of gravity. Pt return-demonstrated after cues, continues completing reaching tasks by reaching over FWW after cues removed. Pt completes reaching and gathering 10 bags from floor in prep of home IND. Pt completes 5 minutes of balloon batting to increase core stability, balance, UE ROM, and reaction time while following directions with moderate accuracy. Pt returns to room using FWW and SBA, returns to recliner chair. Pt states she is not comfortable asking her friends nor neighbors for assist if needed. Upon further evaluation, pt states she has one neighbor across the road who could help if needed, but pt does not "make a habit" of carrying phone with her if she had an emergency. Pt educated of safety of carrying phone due to decreased supports within or outside the home. Pt stated it would be a good idea, but would be hard for her to make a habit of carrying her phone. Pt educated on different carrying techniques (using a pouch around neck/ purse) in order for her to have phone on her just in case. Pt states she plans to not have fall, but will look into making a habit of carrying phone with her. Pt left with call light in reach, chair alarm on, and all needs met. Education OT Patient Education: Correct positioning, Energy conservation, Exercise program, Modified ADL techniques, Progress toward Goal/Update tx plan, Purpose of tx/functional activities, Rehab process, Safety issues, Transfer techniques, Use of adapted equipment Teaching Recipient: Patient Teaching Methods: Demonstration, Discussion Response to Teaching: Verbalize Understanding, Return Demonstration OT Short Term Goals Short Term Goals Time Frame: Oct 23, 2018 Bathing(FIM): 4 (met) Upper Body Dressing(FIM): 5 (met) Lower Body Dressing(FIM): 4 (met) Toilet/Commode Transfer(FIM): 4 (CGA) Additional Short Term Goals: 1-Demonstrate ADL Tasks, 2-Verbalize Understandi ng, 3-ImproveStrength/Morgan 1=Demonstrate adherence to instructed precautions during ADL tasks. 2=Patient will verbalize/demonstrate understanding of assistive devices/modifications for ADL. 3=Patient will improve strength/tolerance for activity to enable patient to perform ADL's. OT Route Sales Person Goals Route Sales Person Goals Time Frame: Nov 06, 2018 Eating (FIM): 6 Eating (QC): 6 Groomin Oral Hygiene (QC): 6 Bathing(FIM): 5 Shower/Bathe Self (QC): 5 Upper Body Dressing(FIM): 6 Upper Body Dressing (QC): 6 Lower Body Dressing(FIM): 5 Lower Body Dressing (QC): 5 On/Off Footwear (QC): 5 Toileting(FIM): 6 Toileting Hygiene (QC): 6 Toilet/Commode Transfer(FIM): 6 Toilet/Commode Transfer (QC): 6 Shower Transfer(FIM): 5 Additional Goals: 1-Demonstrate ADL Tasks, 2-Verbalize Understanding, 3- ImproveStrength/Morgan 1=Demonstrate adherence to instructed precautions during ADL tasks. 2=Patient will verbalize/demonstrate understanding of assistive devices/modifications for ADL. 3=Patient will improve strength/tolerance for activity to enable patient to perform ADL's. OT Education/Plan Discharge Recommendations Plan/Recommendations: Continue POC Equpiment Recommendations-D/C: Rails on Tub/Shower, Mononitrotoluene Operator, Walker Bag or Basket, Dressing Stick Patient/Family Goals Pt wishes to return home; pt has verbalized that does not wish to continue to reside in SNF nor does he want assisted living. Treatment Plan/Plan of Care Treatment,Training & Education: Yes Patient would benefit from OT for education, treatment and training to promote independence in ADL's, mobility, safety and/or upper extremity function for ADL's. Plan of Care: ADL Retraining, Functional Mobility, Group Exercise/Act as Ind, UE Funct Exercise/Act Treatment Duration: Nov 06, 2018 Frequency: At least 5 of 7 days/Wk (IRF) Estimated Hrs Per Day: 1.5 hours per day Agreement: Yes Rehab Potential: Fair Time/GCodes Start Time: 07:55 Stop Time: 09:25 Total Time Billed (hr/min): 90 Billed Treatment Time 1 ADL 4, FA 2 (90) BLAS HERNANDEZ OTR Oct 24, 2018 09:46
--- NOTE | 2018-10-24 10:28 | Physical Therapy Daily Note ---
PT Daily Note-Current Subjective Pt sitting in recliner upon arrival. Pt agrees to PT. Pain Location: No Pain Reported Mental Status Patient Orientation: Person, Place, Situation Transfers Therapy Code Descriptions/Definitions Functional [place] Measure: 0=Not Assessed/NA 4=Minimal Assistance 1=Total Assistance 5=Supervision or Setup 2=Maximal Assistance 6=Modified [place] 3=Moderate Assistance 7=Complete [place] Therapy Quality Codes: 6 Independent with activity with or without an assistive device 5 Patient requires set up or clean up by helper. Patient completes activity by themselves 4 Supervision or touching assist (CGA). [place] provide cues , steadying assist 3 The helper provides less than half the effort to complete the activity 2 The helper provides more than half the effort to complete the activity 1 Dependent. The helper does all the effort to complete an activity 7 Patient refused to complete or attempt activity 9 The patient did not perform the activity before the current illness or injury 88 Not attempted due to Medical conditions or safety concerns Sit to/from Stand: 5 Sit to Stand (QC): 5 Weight Bearing Right Lower Extremity: Right Weight Bearing/Tolerated Left Lower Extremity: Left Full Weight Bearing Gait Training Does the Patient Walk?: Yes Gait (FIM): 5 Distance (FIM): 3=150 ft Distance: 500+' Walk 10 feet (QC): 5 Walk 50 ft with 2 Turns(QC): 5 Walk 150 ft (QC): 5 Gait Level of Assist: 5 Gait Persons Needed: 1 Gait Assistive Device: FWW Pt inquired about 4WW vs FWW. Pt encouraged pt to use FWW for safety. Wheelchair Training Does the Pt Use a Wheelchair?: No Treatments Pt transfers from recliner to standing and ambulates in hallway. Pt ambulates on main floor of hospital before then again ambulates to work on activity tolerance and ambulation safety. Pt returns to room to use restroom. Pt also asks PT to assist with ordering lunch ahead of time. Pt transfers to Supine in bed and is assisted with repositioning with pillows. Pt has all needs met, call light in hand. Assessment Current Status: Good Progress Pt needs VC for safety at times to stay w/in FWW. PT encourages pt to use FWW over 4WW for safety. PT Snf Goals Snf Goals PT Snf Goals Time Frame: Nov 10, 2018 Transfers (B,C,W/C) (FIM): 6 Sit to Lying (QC): 6 Lying-Sitting on Side/Bed(QC): 6 Sit to Stand (QC): 6 Rollin Roll Left to Right (QC): 6 Chair/Hdu-kr-Eufpm Xfer(QC): 6 Car Transfer (QC): 6 Does the Patient Walk: Yes Gait (FIM): 6 Gait distance (FIM): 3=150 ft Distance: 250' Walk 10 feet (QC): 6 Walk 10ft-Uneven Surface(QC): 6 Walk 50ft with 2 Turns (QC): 6 Walk 150 ft (QC): 6 Gait Level of Assist: 6 Gait Assistive Device: FWW Stairs (FIM): 2 # of Steps: 4 1 Step (curb) (QC): 5 4 Steps (QC): 5 12 Steps (QC): 9 Stairs Level Of Assist: 5 Picking up an Object (QC): 5 PT Plan Problem List Problem List: Activity Tolerance, Safety, Gait Treatment/Plan Treatment Plan: Continue Plan of Care Treatment Plan: Bed Mobility, Education, Functional Activity [place], Functional Strength, Gait, Safety, Therapeutic Exercise, Transfers Treatment Duration: Nov 10, 2018 Frequency: At least 5 of 7 days/Wk (IRF) Estimated Hrs Per Day: 1.5 hours per day Patient and/or Family Agrees t: Yes Safety Risks/Education Patient Education: Gait Training, Transfer Techniques, Correct Positioning, S afety Issues Teaching Recipient: Patient Teaching Methods: Discussion Response to Teaching: Verbalize Understanding Time/GCodes Time In: 930 Time Out: 1030 Total Billed Treatment Time: 60 Total Billed Treatment 1, GT x2 (30m) & FA x2 (30m) TIMOTHY ANDERSON PTA Oct 24, 2018 10:28
--- NOTE | 2018-10-24 12:00 | NUR ---
DENIES ANY FEELINGS OF CONFUSION. DENIES ANY PAIN AT REST.
--- NOTE | 2018-10-24 13:32 | Physical Therapy Daily Note ---
PT Daily Note-Current Subjective Pt sitting in recliner upon arrival. Pt agrees to PT. Pain Location: No Pain Reported Comment: Pt reports no pain, just tightness in R hip with ambulation. Mental Status Patient Orientation: Person, Place, Situation Transfers Therapy Code Descriptions/Definitions Functional [place] Measure: 0=Not Assessed/NA 4=Minimal Assistance 1=Total Assistance 5=Supervision or Setup 2=Maximal Assistance 6=Modified [place] 3=Moderate Assistance 7=Complete [place] Therapy Quality Codes: 6 Independent with activity with or without an assistive device 5 Patient requires set up or clean up by helper. Patient completes activity by themselves 4 Supervision or touching assist (CGA). [place] provide cues , steadying assist 3 The helper provides less than half the effort to complete the activity 2 The helper provides more than half the effort to complete the activity 1 Dependent. The helper does all the effort to complete an activity 7 Patient refused to complete or attempt activity 9 The patient did not perform the activity before the current illness or injury 88 Not attempted due to Medical conditions or safety concerns Sit to/from Stand: 5 Sit to Stand (QC): 5 Weight Bearing Right Lower Extremity: Right Weight Bearing/Tolerated Left Lower Extremity: Left Full Weight Bearing Gait Training Does the Patient Walk?: Yes Gait (FIM): 5 Distance (FIM): 3=150 ft Distance: 175' Walk 10 feet (QC): 5 Walk 50 ft with 2 Turns(QC): 5 Walk 150 ft (QC): 5 Gait Level of Assist: 5 Gait Persons Needed: 1 Gait Assistive Device: FWW Pt demonstrates tightness in R hip as pt walks. Pt reports no pain though. Wheelchair Training Does the Pt Use a Wheelchair?: No Exercises Seated Therapy Exercises: Ankle pumps, Long arc quads, Hip flexion, Kicking activity, Hip abd/add, Glut set Seated Reps: 15 NuStep Minutes: 10 NuStep Workload: 5 Treatments Pt transfers from recliner to standing. Pt ambulates in hallway then uses NuStep for 10m at WL 5. Pt ambulates in hallway before completing Seated EX in recliner. Pt resting at end of tx with all needs met, call light in hand. Assessment Current Status: Good Progress Pt tolerates tx well. PT Bindery Cutter Operator Goals Bindery Cutter Operator Goals PT Correction Goals Time Frame: Nov 10, 2018 Transfers (B,C,W/C) (FIM): 6 Sit to Lying (QC): 6 Lying-Sitting on Side/Bed(QC): 6 Sit to Stand (QC): 6 Rollin Roll Left to Right (QC): 6 Chair/Mdn-mg-Gcitd Xfer(QC): 6 Car Transfer (QC): 6 Does the Patient Walk: Yes Gait (FIM): 6 Gait distance (FIM): 3=150 ft Distance: 250' Walk 10 feet (QC): 6 Walk 10ft-Uneven Surface(QC): 6 Walk 50ft with 2 Turns (QC): 6 Walk 150 ft (QC): 6 Gait Level of Assist: 6 Gait Assistive Device: FWW Stairs (FIM): 2 # of Steps: 4 1 Step (curb) (QC): 5 4 Steps (QC): 5 12 Steps (QC): 9 Stairs Level Of Assist: 5 Picking up an Object (QC): 5 PT Plan Problem List Problem List: Activity Tolerance, Functional Strength Treatment/Plan Treatment Plan: Continue Plan of Care Treatment Plan: Bed Mobility, Education, Functional Activity [place], Functional Strength, Gait, Safety, Therapeutic Exercise, Transfers Treatment Duration: Nov 10, 2018 Frequency: At least 5 of 7 days/Wk (IRF) Estimated Hrs Per Day: 1.5 hours per day Patient and/or Family Agrees t: Yes Safety Risks/Education Patient Education: Gait Training, Transfer Techniques, Correct Positioning, Safety Issues Teaching Recipient: Patient Teaching Methods: Discussion Response to Teaching: Verbalize Understanding Time/GCodes Time In: 1300 Time Out: 1330 Total Billed Treatment Time: 30 Total Billed Treatment 1, EX x2 (30m) TIMOTHY ANDERSON OPTICAL DESIGNER Oct 24, 2018 13:32
--- NOTE | 2018-10-24 14:58 | NUR ---
Weekly team conference Discussed weekly team conference with patient. Team recommends dc to [facility] with a dc date of 10/29/18. Patient reports she would like to go home to "clear out" her house and then she would move to [facility] as her is currently in intermediate care at [facility]. Patient also requests discharge on 10/26/18. Patient would like for her neighbor, Tamara Lloyd, to be contacted and updated on discharge plan. This development writer will contact Tamara Lloyd regarding discharge plan. Discharge date and patient's desire to return home will be discussed with the team.
--- NOTE | 2018-10-24 15:56 | NUR ---
Talked with Tamara Lloyd as requested by patient. Tamara states she lives 3 houses down from patient. Pat reports she is semi-retired and that she and her are able to provide some assistance to the patient. Tamara states she would like to get the patient out in the community and connected with others. Tamara states she is willing to help the patient navigate the website for [employer] so that she can order groceries to be delivered. Tamara also talked about getting transportation set up for the patient to go to her physician office visits and having her medications delivered. Will talk with team regarding discharge plan and the patient's desire to return home.
[2018-10-24 17:23] VITALS: BP 144/80
[2018-10-24] MEDS: FLUTICASONE NASAL SPRAY (FLONASE) 16 GM BTL NS SCH (20:02)
[2018-10-25 05:00] VITALS: BP 137/74
[2018-10-25] MEDS: SENNA W/DOCUSATE (SENOKOT S) TABLET PO SCH ×3 (09:45→21:30)
[2018-10-25] MEDS: ENOXAPARIN 40 MG/0.4 ML (LOVENOX) SYR SC SCH (09:46)
--- NOTE | 2018-10-25 10:00 | Occupational Ther Daily Note ---
OT Current Status-Daily Note Subjective Pt seen in recliner chair this morning, breakfast ate. Pt agreeable to OT tx session. Mental Status/Objective Patient Orientation: Normal For Age Therapy Code Descriptions/Definitions Functional [place] Measure: 0=Not Assessed/NA 4=Minimal Assistance 1=Total Assistance 5=Supervision or Setup 2=Maximal Assistance 6=Modified [place] 3=Moderate Assistance 7=Complete [place] ADL-Treatment Therapy Code Descriptions/Definitions Functional [place] Measure: 0=Not Assessed/NA 4=Minimal Assistance 1=Total Assistance 5=Supervision or Setup 2=Maximal Assistance 6=Modified [place] 3=Moderate Assistance 7=Complete [place] Therapy Quality Codes: 6 Independent with activity with or without an assistive device 5 Patient requires set up or clean up by helper. Patient completes activity by themselves 4 Supervision or touching assist (CGA). [place] provide cues , steadying assist 3 The helper provides less than half the effort to complete the activity 2 The helper provides more than half the effort to complete the activity 1 Dependent. The helper does all the effort to complete an activity 7 Patient refused to complete or attempt activity 9 The patient did not perform the activity before the current illness or injury 88 Not attempted due to Medical conditions or safety concerns Eating (FIM): 7 Eating (QC): 6 Grooming (FIM): 6 (Completes hair grooming sitting in chair) Oral Hygiene (QC): 5 (SUP for safety while standing at sink. Pt completes with good sequencing and completion.) Bathing (FIM): 5 (Pt requires cues for use of long handled sponge as pt asks for assist for washing back. Pt completes back washing with modified arm placements. Pt completes shalonda hygiene with SBA due to safety in stance in shower. ) Shower/Bathe Self (QC): 5 Upper Body (FIM): 6 Upper Body Dressing (QC): 6 Lower Body Dressing (FIM): 5 (cues for use of frame coverer for LB dressing tasks, pt return demonstrates 2x with pants, completing with safety.) Lower Body Dressing (QC): 4 (cues for use of frame coverer for pant donning) On/Off Footwear (QC): 4 (completes shoe/ sock donning 3x with cues for use of shoe horn. Pt demonstrates competency of sock aide by completing 3x with mod I. Pt compeltes shoe donning wiht min cues by 3rd trial. ) Toileting (FIM): 5 (SUP for safety.) Toileting Hygiene (QC): 4 (SUP in stance.) Transfers (B, C, W/C) (FIM): 5 (SBA for safety) Toilet/Commode Transfer (FIM): 5 Toilet Transfer (QC): 4 (SUP) Tub Transfer(FIM): 5 (SBA, pt states, "You told me to do it this way, it is safer." Pt completes shower transfer correctly and safely. ) Other Treatment Pt seen in room, pt educated on need for practice for safe d/c. Pt agreeable. Pt ambulates with FWW and SBA to laundry room, completes gathering clothing items with min cues for safe hand placement and FWW placement while utilizing frame coverer. Pt completes 4/5 items with correct positioning, pt completes 1/5 without stabilizing hand due to weight of item in drying requiring BUE for frame coverer. Pt able to fold and complete with SUP and good safety. Pt completes showering routine, dresses in shower chair. Pt stands at sink for oral hygiene, able to ambulate to chair with FWW and SUP to complete LB dressing. Pt educated on AE to complete LB dressing tasks at home. Pt completes pant, shoe, and sock donning with AE and demonstrates safety and competency with tasks by end of trials. Pt states each AE's use when asked. Pt states she feels okay going home, and only concerned of getting into her home due to garage door heaviness but states she can open it and have it remain open prior to walking through the door. Pt states neighbor is willing to help, but pt does not "want to bother" neighbor with tasks. Pt educated of emergency needs and pt states she can call neighbor or police if needed. Pt agrees she needs to carry phone with her. Pt completes home exercise program sitting in recliner chair (10-15 reps each UE), hand out given and pt left with call light in reach, all questions addressed, and needs met. Education OT Patient Education: Correct positioning, Energy conservation, Exercise program, Home exercise program, Modified ADL techniques, Progress toward Goal/Update tx plan, Purpose of tx/functional activities, Reviewed precautions, Rehab process, Safety issues, Transfer techniques, Use of adapted equipment Teaching Recipient: Patient Teaching Methods: Demonstration, Discussion Response to Teaching: Verbalize Understanding, Return Demonstration OT Short Term Goals Short Term Goals Time Frame: Oct 23, 2018 Bathing(FIM): 4 (met) Upper Body Dressing(FIM): 5 (met) Lower Body Dressing(FIM): 4 (met) Toilet/Commode Transfer(FIM): 4 (CGA) Additional Short Term Goals: 1-Demonstrate ADL Tasks, 2-Verbalize Understanding, 3-ImproveStrength/Morgan 1=Demonstrate adherence to instructed precautions during ADL tasks. 2=Patient will verbalize/demonstrate understanding of assistive dev ices/modifications for ADL. 3=Patient will improve strength/tolerance for activity to enable patient to perform ADL's. OT Cutting Table Operator Goals Skilled Nursing Goals Time Frame: Nov 06, 2018 Eating (FIM): 6 (met) Eating (QC): 6 Groomin (met) Oral Hygiene (QC): 6 Bathing(FIM): 5 (met) Shower/Bathe Self (QC): 5 (met) Upper Body Dressing(FIM): 6 (met) Upper Body Dressing (QC): 6 Lower Body Dressing(FIM): 5 (met) Lower Body Dressing (QC): 5 On/Off Footwear (QC): 5 Toileting(FIM): 6 Toileting Hygiene (QC): 6 Toilet/Commode Transfer(FIM): 6 Toilet/Commode Transfer (QC): 6 Shower Transfer(FIM): 5 Additional Goals: 1-Demonstrate ADL Tasks, 2-Verbalize Understanding, 3- ImproveStrength/Morgan 1=Demonstrate adherence to instructed precautions during ADL tasks. 2=Patient will verbalize/demonstrate understanding of assistive devices/modifications for ADL. 3=Patient will improve strength/tolerance for activity to enable patient to perform ADL's. OT Education/Plan Problem List/Assessment Assessment: Decreased Activ Tolerance, Decreased Safety Aware, Impaired Funct Balance, Impaired I ADL's, Impaired Self-Care Skills Discharge Recommendations Plan/Recommendations: Continue POC Therapy Discharge Recommendati: Assisted Living (Due to pt's decreased safety awareness and lack of support at home, recommend [facility]) Equpiment Recommendations-D/C: Quartz Mounter, Walker Bag or Basket, Dressing Stick, Long Shoe Horn Treatment Plan/Plan of Care Treatment,Training & Education: Yes Patient would benefit from OT for education, treatment and training to promote independence in ADL's, mobility, safety and/or upper extremity function for ADL's. Plan of Care: ADL Retraining, Functional Mobility, Group Exercise/Act as Ind, UE Funct Exercise/Act Treatment Duration: Nov 06, 2018 Frequency: At least 5 of 7 days/Wk (IRF) Estimated Hrs Per Day: 1.5 hours per day Agreement: Yes Rehab Potential: Fair Time/GCodes Start Time: 07:55 Stop Time: 09:30 Total Time Billed (hr/min): 95 Billed Treatment Time 1 ADL 5 (75), FA (20) BLAS HERNANDEZ OTR Oct 25, 2018 10:00
--- NOTE | 2018-10-25 11:13 | Physical Therapy Daily Note ---
PT Daily Note-Current Subjective Pt sitting in recliner upon arrival. Pt agrees to PT. Pain Numeric Pain Scale: 3 Location: Right Location Body Site: Hip Pain Description: Tightness Mental Status Patient Orientation: Person, Place, Situation Transfers Therapy Code Descriptions/Definitions Functional [place] Measure: 0=Not Assessed/NA 4=Minimal Assistance 1=Total Assistance 5=Supervision or Setup 2=Maximal Assistance 6=Modified [place] 3=Moderate Assistance 7=Complete [place] Therapy Quality Codes: 6 Independent with activity with or without an assistive device 5 Patient requires set up or clean up by helper. Patient completes activity by themselves 4 Supervision or touching assist (CGA). [place] provide cues , steadying assist 3 The helper provides less than half the effort to complete the activity 2 The helper provides more than half the effort to complete the activity 1 Dependent. The helper does all the effort to complete an activity 7 Patient refused to complete or attempt activity 9 The patient did not perform the activity before the current illness or injury 88 Not attempted due to Medical conditions or safety concerns Transfers (B, C, W/C) (FIM): 6 Scootin Rollin Roll Left to Right (QC): 6 Supine to/from Sit: 6 Sit to/from Stand: 6 Sit to Lying (QC): 6 Sit to Stand (QC): 6 Chair/Uec-go-Ushnb Xfer(QC): 6 Bed to/from Chair: 6 Car Transfer (QC): 6 Pt needs VC for safer car transfer instead of stepping one foot at a time. Weight Bearing Right Lower Extremity: Right Weight Bearing/Tolerated Left Lower Extremity: Left Full Weight Bearing Gait Training Does the Patient Walk?: Yes Gait (FIM): 6 Distance (FIM): 3=150 ft Distance: 150' Walk 10 feet (QC): 6 Walk 50 ft with 2 Turns(QC): 6 Walk 150 ft (QC): 6 Walking 10ft/uneven surface-QC: 6 Gait Level of Assist: 6 Gait Persons Needed: 1 Gait Assistive Device: FWW Wheelchair Training Does the Pt Use a Wheelchair?: No Stair Training Stair Training: Handrails/: 2 handrails Stairs (FIM): 4 #of Steps: 8 1 Step (curb) (QC): 5 4 Steps (QC): 5 Stairs: Pattern: Step to Level of Assist: 5 Balance Picking up an Object (QC): 88 Special Test Comments This is not a safe item to test since pt has hip precautions. Exercises NuStep Minutes: 10 NuStep Workload: 5 Treatments Pt completes FIM scoring items including: bed mobility, transfers including car transfers, ambulation including across varying surfaces, stairs but not picking up object due to safety. Pt also used NuStep for 10m at WL 5 before returning to room to use restroom and rest. TRAFFIC WORKFORCE REPRESENTATIVE also assisted pt with ordering lunch. Pt resting Supine in bed with all needs met, call light in hand. Assessment Current Status: Good Progress Pt tolerated tx well and even reports less tightness in R inner thigh & groin with movement. PT Comber Setter Goals Comber Setter Goals PT Care Home Goals Time Frame: Nov 10, 2018 Transfers (B,C,W/C) (FIM): 6 Sit to Lying (QC): 6 Lying-Sitting on Side/Bed(QC): 6 Sit to Stand (QC): 6 Rollin Roll Left to Right (QC): 6 Chair/Pbx-gq-Ehyep Xfer(QC): 6 Car Transfer (QC): 6 Does the Patient Walk: Yes Gait (FIM): 6 Gait distance (FIM): 3=150 ft Distance: 250' Walk 10 feet (QC): 6 Walk 10ft-Uneven Surface(QC): 6 Walk 50ft with 2 Turns (QC): 6 Walk 150 ft (QC): 6 Gait Level of Assist: 6 Gait Assistive Device: FWW Stairs (FIM): 2 # of Steps: 4 1 Step (curb) (QC): 5 4 Steps (QC): 5 12 Steps (QC): 9 Stairs Level Of Assist: 5 Picking up an Object (QC): 5 PT Plan Problem List Problem List: Activity Tolerance, Functional Strength Treatment/Plan Treatment Plan: Continue Plan of Care Treatment Plan: Bed Mobility, Education, Functional Activity Morgan, Functional Strength, Gait, Safety, Therapeutic Exercise, Transfers Treatment Duration: Nov 10, 2018 Frequency: At least 5 of 7 days/Wk (IRF) Estimated Hrs Per Day: 1.5 hours per day Patient and/or Family Agrees t: Yes Safety Risks/Education Patient Education: Gait Training, Transfer Techniques, Steps, Correct Positioning, Safety Issues Teaching Recipient: Patient Teaching Methods: Discussion Response to Teaching: Verbalize Understanding Time/GCodes Time In: 1000 Time Out: 1100 Total Billed Treatment Time: 60 Total Billed Treatment 1, GT (15m), EX (15m) & FA x2 (30m) TIMOTHY ANDERSON TRAFFIC WORKFORCE REPRESENTATIVE Oct 25, 2018 11:13
--- NOTE | 2018-10-25 12:01 | Physical Therapy Daily Note ---
PT Daily Note-Current Subjective Pt sitting in recliner upon arrival. Pt agrees to PT. Mental Status Patient Orientation: Person, Place, Situation Transfers Therapy Code Descriptions/Definitions Functional [place] Measure: 0=Not Assessed/NA 4=Minimal Assistance 1=Total Assistance 5=Supervision or Setup 2=Maximal Assistance 6=Modified [place] 3=Moderate Assistance 7=Complete [place] Therapy Quality Codes: 6 Independent with activity with or without an assistive device 5 Patient requires set up or clean up by helper. Patient completes activity by themselves 4 Supervision or touching assist (CGA). [place] provide cues , steadying assist 3 The helper provides less than half the effort to complete the activity 2 The helper provides more than half the effort to complete the activity 1 Dependent. The helper does all the effort to complete an activity 7 Patient refused to complete or attempt activity 9 The patient did not perform the activity before the current illness or injury 88 Not attempted due to Medical conditions or safety concerns Weight Bearing Right Lower Extremity: Right Weight Bearing/Tolerated Left Lower Extremity: Left Full Weight Bearing Exercises Supine Ex: Ankle pumps, Quad Set, Glut sets, Heel Slides, Straight leg raise, Hip abd/add Supine Reps: 15 Seated Therapy Exercises: Ankle pumps, Long arc quads, Hip flexion, Kicking activity Seated Reps: 15 Treatments Pt is issued a HEP for Supine & Seated EX. Assessment Current Status: Good Progress Pt demonstrated comprehension of HEP and had no questions. PT Fdc Goals Fdc Goals PT Fdc Goals Time Frame: Nov 10, 2018 Transfers (B,C,W/C) (FIM): 6 Sit to Lying (QC): 6 Lying-Sitting on Side/Bed(QC): 6 Sit to Stand (QC): 6 Rollin Roll Left to Right (QC): 6 Chair/Bmy-tg-Vceja Xfer(QC): 6 Car Transfer (QC): 6 Does the Patient Walk: Yes Gait (FIM): 6 Gait distance (FIM): 3=150 ft Distance: 250' Walk 10 feet (QC): 6 Walk 10ft-Uneven Surface(QC): 6 Walk 50ft with 2 Turns (QC): 6 Walk 150 ft (QC): 6 Gait Level of Assist: 6 Gait Assistive Device: FWW Stairs (FIM): 2 # of Steps: 4 1 Step (curb) (QC): 5 4 Steps (QC): 5 12 Steps (QC): 9 Stairs Level Of Assist: 5 Picking up an Object (QC): 5 PT Plan Problem List Problem List: Activity Tolerance, Functional Strength Treatment/Plan Treatment Plan: Continue Plan of Care Treatment Plan: Bed Mobility, Education, Functional Activity Morgan, Functional Strength, Gait, Safety, Therapeutic Exercise, Transfers Treatment Duration: Nov 10, 2018 Frequency: At least 5 of 7 days/Wk (IRF) Estimated Hrs Per Day: 1.5 hours per day Patient and/or Family Agrees t: Yes Safety Risks/Education Patient Education: Issued Written HEP, Correct Positioning, Safety Issues Teaching Recipient: Patient Teaching Methods: Discussion Response to Teaching: Verbalize Understanding Time/GCodes Time In: 1130 Time Out: 1200 Total Billed Treatment Time: 30 Total Billed Treatment 1, EX x2 (30m) TIMOTHY ANDERSON PTA Oct 25, 2018 12:01
--- NOTE | 2018-10-25 12:55 | PM&R Progress Note ---
Subjective HPI/CC On Admission Date Seen by Provider: Oct 25, 2018 Time Seen by Provider: 09:00 Chief complaint: Debility following right hip fracture. HPI: This is a 73yo oriental female clinic Pt of Dr. Sweeney who has a history of chronic vertigo and multiple falls, most recently was a subdural hematoma of which I took care of her during a weekend that Dr. 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 Reynolds that was uncomplicated. Her bowels reported to be moving per Pt but unsure if she understood the question. She doesn't appear to have any confusion, she does understand Upper [place] but there is still a language barrier there, her prior level of function was ambulation without the use of assisted devices and the plan would be to go to assisted living at discharge and Pt will be closely monitored during inpatient rehab stay and to gain confidence and become successful and discharge. Subjective/Events-last exam Pt doing very well. Talking about the sock device and she can't work that very well. Denies any significant pain issues. Updated PCP on her insistence on going home and hopefully we can talk her into assisted living Check meds and labs Reviewed therapy notes Conferred with medical insurance claims processor of Systems General: Fatigue Musculoskeletal: leg pain Neurological: Confusion Objective Exam Vital Signs Vital Signs Date Time Temp Pulse Resp B/P (MAP) Pulse Ox O2 Delivery O2 Flow Rate FiO2 10/25/18 21:15 Room Air 10/25/18 05:00 36.2 79 18 137/74 (95) 98 Capillary Refill : Less Than 3 Seconds General Appearance: WD/WN, Anxious, Chronically ill, Mild Distress HEENT: PERRL/EOMI, TMs Normal, Normal ENT Inspection Neck: Full Range of Motion, Normal Inspection, Non Tender Respiratory: Chest Non Tender, Lungs Clear, Normal Breath Sounds, No Accessory Muscle Use, No Respiratory Distress Cardiovascular: Regular Rate, Rhythm, No Edema, No Gallop, No JVD, No Murmur, N ormal Peripheral Pulses Gastrointestinal: Normal Bowel Sounds, No Organomegaly, No Pulsatile Mass, Non Tender, Soft Back: Normal Inspection, No CVA Tenderness, No Vertebral Tenderness Extremity: Normal Capillary Refill, Normal Inspection, No Calf Tenderness, Other (decreased ROM right leg) Neurologic/Psychiatric: Alert, Oriented x3, No Motor/Sensory Deficits, Normal Mood/Affect, surgeon's assistant II-XII Norm as Tested, Disoriented Skin: Normal Color, Warm/Dry Lymphatic: No Adenopathy Results/Procedures Lab Patient resulted labs reviewed. FIM Transfers Therapy Code Descriptions/Definitions Functional [place] Measure: 0=Not Assessed/NA 4=Minimal Assistance 1=Total Assistance 5=Supervision or Setup 2=Maximal Assistance 6=Modified [place] 3=Moderate Assistance 7=Complete [place] Therapy Quality Codes: 6 Independent with activity with or without an assistive device 5 Patient requires set up or clean up by helper. Patient completes activity by themselves 4 Supervision or touching assist (CGA). [place] provide cues , steadying assist 3 The helper provides less than half the effort to complete the activity 2 The helper provides more than half the effort to complete the activity 1 Dependent. The helper does all the effort to complete an activity 7 Patient refused to complete or attempt activity 9 The patient did not perform the activity before the current illness or injury 88 Not attempted due to Medical conditions or safety concerns Transfers (B, C, W/C) (FIM): 5 (SBA for safety) Scootin Rollin Roll Left to Right (QC): 6 Supine to/from Sit: 6 Sit to/from Stand: 6 Sit to Lying (QC): 6 Sit to Stand (QC): 6 Chair/Wpw-wv-Hgplu Xfer(QC): 6 Bed to/from Chair: 6 Car Transfer (QC): 6 Gait Training Does the Patient Walk?: Yes Gait (FIM): 6 Distance (FIM): 3=150 ft Distance: 150' Walk 10 feet (QC): 6 Walk 50 ft with 2 Turns(QC): 6 Walk 150 ft (QC): 6 Walking 10ft/uneven surface-QC: 6 Gait Level of Assist: 6 Gait Persons Needed: 1 Gait Assistive Device: FWW Wheelchair Training Does the Pt Use a Wheelchair?: No Stair Training Stair Training: Handrails/: 2 handrails Stairs (FIM): 4 #of Steps: 8 1 Step (curb) (QC): 5 4 Steps (QC): 5 12 Steps (QC): 88 Stairs: Pattern: Step to Level of Assist: 5 Balance Picking up an Object (QC): 88 Mental Status/Objective Comprehension: 6 Expression: 6 Social Interaction: 6 Problem Solvin Memory: 5 ADL-Treatment Feedin Eating (QC): 6 Groomin (Completes hair grooming sitting in chair) Oral Hygiene (QC): 5 (SUP for safety while standing at sink. Pt completes with good sequencing and completion.) Bathin (Pt requires cues for use of long handled sponge as pt asks for assist for washing back. Pt completes back washing with modified arm placements. Pt completes shalonda hygiene with SBA due to safety in stance in shower. ) Bathing Location: L Arm, R Arm, L Upper Leg, R Upper Leg, L Lower Leg (including foot), Chest, Abdomen, Buttocks, Perineal Area Shower/Bathe Self (QC): 5 Upper Extremity Dressin Upper Body Dressing (QC): 6 Lower Extremity Dressin (cues for use of parlor maid for LB dressing tasks, pt return demonstrates 2x with pants, completing with safety.) Lower Body Dressing (QC): 4 (cues for use of parlor maid for pant donning) On/Off Footwear (QC): 4 (completes shoe/ sock donning 3x with cues for use of shoe horn. Pt demonstrates competency of sock aide by completing 3x with mod I. Pt compeltes shoe donning wiht min cues by 3rd trial. ) Toiletin (SUP for safety.) Toileting Hygiene (QC): 4 (SUP in stance.) Toilet/Commode Transfer: 5 Toilet Transfer (QC): 4 (SUP) Tub: 5 (SBA, pt states, "You told me to do it this way, it is safer." Pt completes shower transfer correctly and safely. ) Shower: 4 (CGA) Assessment/Plan Assessment and Plan Assess & Plan/Chief Complaint Plan: Pain control Monitor BP and HR Lovenox Monitor labs IRF protocol AL at DC Monitor confusion Fall risk Monitor dizziness which is chronic Dispo with DC home tomorrow with HH (1) Closed right hip fracture (2) Fall Status: Acute (3) Hip fracture, right (4) Dizziness Status: Acute (5) SAH (subarachnoid hemorrhage) Status: Acute (6) Anemia (7) Hyperlipidemia (8) Hypertension (9) Chronic vertigo Status: Acute CORBIN WINTER DO Oct 25, 2018 12:55
--- NOTE | 2018-10-25 13:56 | NUR ---
Patient states [facility] is preferred agency. IMM discussed with patient. Patient reports she is ready to go home tomorrow. Patient signed IMM.
--- NOTE | 2018-10-25 14:07 | NUR ---
Referral faxed to [facility]. Left a message for Tamara Lloyd, patient's neighbor, to return my call. Pat will be providing transportation home for patient tomorrow. Attempted to set up [facility] service through [facility]; however, patient reports she only has a cell phone and [facility] system requires a landline phone system. Will request information from [facility].
--- NOTE | 2018-10-25 14:21 | NUR ---
Talked with Micheline at [employer] regarding Medical Alert system. Initial installation is $60 and then $25/month for in-home monitoring. Will discuss this with the patient.
[2018-10-25 18:00] VITALS: BP 148/74
--- NOTE | 2018-10-25 19:13 | NUR ---
bedside report received from JEM VILLAGRAN, assume care of pt
[2018-10-25] MEDS: FLUTICASONE NASAL SPRAY (FLONASE) 16 GM BTL NS SCH (21:12)
--- NOTE | 2018-10-25 21:15 | NUR ---
assessments & interventions completed, see assessments & interventions
[2018-10-26 05:25] VITALS: BP 120/76
--- NOTE | 2018-10-26 07:06 | NUR ---
bedside report given to ALBERTO VILLAGRAN
[2018-10-26] MEDS: ENOXAPARIN 40 MG/0.4 ML (LOVENOX) SYR SC SCH (08:16)
[2018-10-26] MEDS: SENNA W/DOCUSATE (SENOKOT S) TABLET PO SCH (08:16)
[2018-10-26] MEDS ORDERED: METO-387 PO (08:34)
[2018-10-26] MEDS ORDERED: ACHD5005 PO (08:34)
[2018-10-26] MEDS ORDERED: FLUT16SP22 NS (08:34)
--- NOTE | 2018-10-26 08:38 | Discharge Summary ---
Discharge Summary Reconcile Patient Problems Problems Reviewed?: Yes Instructions for Patient [facility], Assessment/Instructions Primary care provider Dr. Sweeney in one week for follow-up Physician to follow Patient: Dr. Sweeney Discharge Diet for Home: No Restrictions Hospital Course Date of Admission: Oct 16, 2018 at 11:52 Admission Diagnosis : Family Physician/Provider: Breanna Sweeney DO Date of Discharge: 10/26/18 Discharge Diagnosis: Right hip fracture, chronic vertigo, dementia Hospital Course: Patient hasn't an uncomplicated hospital course and inpatient rehabilitation after she was transferred from fourth floor after an uncomplicated right hip fracture repair. Pain was well-controlled on pain medication. L regimen maintained with good results and return to normalcy. Chronic vertigo and impulsive personality put her at risk for multiple falls of which she has had multiple falls in the past but try to optimize that recommended assisted living she declined social will go home on home health. Prognosis guarded. Labs and Pending Lab Test: Home Meds Active Fluticasone Propionate 16 Gm [place].susp 0 [place] NS HS Hydrocodone/Acetaminophen 5/325mg Tablet (Acetaminophen/Hydrocodone Bitart) 1 T ab Tab 1-2 Tab PO Q6H PRN Metoprolol Succinate 25 Mg Tab.er.24h 25 Mg PO DAILY Reported Metoprolol Succinate 50 Mg Tab.er.24h 50 Mg PO DAILY Meclizine HCl 25 Mg Tablet 25 Mg PO TID PRN Crestor (Rosuvastatin Calcium) 10 Mg Tablet 10 Mg PO HS Patient Allergies: Coded Allergies: No Known Drug Allergies (Verified , 04/29/15) Height (Feet): 5 Height (Inches): 0.00 Weight (Pounds): 118 Weight (Ounces): 1.0 Home Health Need/Face to Face Date of Face to Face: Oct 26, 2018 Clinical Findings: Generalized weakness and fatigue, Instability, Muscle weakness, Pain with ambulation, Unsteady gait I have seen Pt [id number]: Yes Discharged To: Home Diagnosis/Conditions: Right hip fracture Chronic vertigo Dementia Patient is Homebound due to: CognItive deficits, Tom fall risk due to instabilty, Muscle weakness Homebound Status Due to the above stated illness, injury or surgical procedure (medical condition or diagnosis) and associated clinical findings, the patient is homebound because of his/her inability to leave home except with aid of a supportive device and/or person AND leaving the home requires a considerable and taxing effort or is medically contraindicated. Pt req the following assistanc: Walker Home Health Nursing Orders Home Health Services Order: Nursing Services (review meds), Rollway Worker- Evaluate & Treat, Physical Therapy-Evaluate & Treat Certify Stmt I certify that this patient is under my care and that I, a nurse practitioner or a physician; a under water assistant working with me, had a face to face encounter that - meets the physician face to face encounter requirements with this patient as dated. CORBIN WINTER DO Oct 26, 2018 08:38
--- NOTE | 2018-10-26 09:46 | NUR ---
PT recommends FWW for discharge. Patient states [facility] is her preferred provider for medical equipment. Order for FWW faxed to [facility] with request for FWW to be delivered to hospital prior to patient discharging home.
--- NOTE | 2018-10-26 09:51 | Therapy Team Discharge Summary ---
Therapy Discharge Summary Discharge Recommendations Date of Discharge 10/26/18 Therapy D/C Recommendations: Physical Therapy Home Care Physical Therapy This patient was seen on ARU for skilled therapy services post fall resulting in a right hip fx. Prior to admit, she was mod indep with all mobility and living at home with her spouse. Upon admission to this unit, she was min assist with transfers, walked 15 ft with FWW with min assist and was unable to perform stairs. Treatment has focused on functional strength and balance training with safety education to promote safe functional transfers and gait. At discharge, she is mod indep with transfers and gait and goes up/down steps with supervision. She has made functional progress. She demonstrates some decreased functional safety awareness still; however she plans to discharge home (per her desire). Recommend frequent supervision at home and follow up [facility] PT. Will DC at this time. Occupational Therapy Decreased Activ Tolerance, Decreased Safety Aware, Impaired Funct Balance, Impaired I ADL's, Impaired Self-Care Skills PT Snf Goals Snf Goals PT Snf Goals Time Frame: Nov 10, 2018 Transfers (B,C,W/C) (FIM): 6 (met) Roll Left to Right (QC): 6 Sit to Lying (QC): 6 Lying-Sitting on Side/Bed(QC): 6 Sit to Stand (QC): 6 Chair/Zdr-ll-Mimoq Xfer(QC): 6 Car Transfer (QC): 6 Does the Patient Walk: Yes Gait (FIM): 6 (met) Gait distance (FIM): 3=150 ft Distance: 250' Walk 10 feet (QC): 6 Walk 10ft-Uneven Surface(QC): 6 Walk 50ft with 2 Turns (QC): 6 Walk 150 ft (QC): 6 Gait Level of Assist: 6 Gait Assistive Device: FWW Stairs (FIM): 2 (exceeded; scored a 4) # of Steps: 4 1 Step (curb) (QC): 5 4 Steps (QC): 5 12 Steps (QC): 9 Stairs Level Of Assist: 5 Picking up an Object (QC): 5 OT Snf Goals Snf Goals Time Frame: Nov 06, 2018 Eating (FIM): 6 (met) Eating (QC): 6 Oral Hygiene (QC): 6 Grooming(FIM): 6 (met) Bathing(FIM): 5 (met) Shower/Bathe Self (QC): 5 (met) Upper Body Dressing(FIM): 6 (met) Upper Body Dressing (QC): 6 Lower Body Dressing(FIM): 5 (met) Lower Body Dressing (QC): 5 On/Off Footwear (QC): 5 Toileting(FIM): 6 Toileting Hygiene (QC): 6 Toilet/Commode Transfer(FIM): 6 Toilet/Commode Transfer (QC): 6 Shower Transfer(FIM): 5 Additional Goals: 1-Demonstrate ADL Tasks, 2-Verbalize Understanding, 3- ImproveStrength/Morgan 1=Demonstrate adherence to instructed precautions during ADL tasks. 2=Patient will verbalize/demonstrate understanding of assistive devices/modifi cations for ADL. 3=Patient will improve strength/tolerance for activity to enable patient to perform ADL's. MISHA HOUSE PT Oct 26, 2018 09:51
--- NOTE | 2018-10-26 10:04 | NUR ---
Reviewed OT recommendations for DME: pipe machine operator, dressing stick, long shoe horn and walker bag/basket. Discussed with patient. Patient would like to purchase a Hip Kit from [facility]. Talked with Trace at [facility]; hip kit will be delivered with walker. Estimated delivery time is today at noon.
--- NOTE | 2018-10-26 10:48 | NUR ---
Received a call from Trace from [facility]. Patient is not eligible for a walker at this time as patient has received one in the past 5 years. Will notify patient and PT. Addendum: 10/26/18 at 1058 by DAVION CROFT RN Patient reports that she has a FWW at home. She has a rollator in her room that she has been using intermittently while on the rehab unit.
--- NOTE | 2018-10-26 12:00 | NUR ---
PATIENT HAD DIFFICULTY FOLLOWING DISCHARGE INSTRUCTIONS SO NURSE ALSO WENT OVER SOME OF THEM WITH [facility]. HOME HEALTH NURSE TO FOLLOW UP TOMORROW.
--- NOTE | 2018-10-26 12:06 | NUR ---
Patient's neighbor, Tamara Cannoneland here to transport patient home. This worker provided Pat with information on the Medical Alert system from [employer]. Pat will stop by [facility] to pickle processor hip kit for patient. Pat states she is working on getting in-home assistance for patient and will have [facility] deliver any medications to patient. Pat denies any questions or concerns with discharge instructions.
--- NOTE | 2018-10-26 12:09 | Discharge Summary ---
Diagnosis/Chief Complaint Date of Admission Oct 16, 2018 at 11:52 Date of Discharge Discharge Date: Oct 26, 2018 Discharge Diagnosis Plan: Pain control Monitor BP and HR Lovenox Monitor labs IRF protocol AL at DC Monitor confusion Fall risk Monitor dizziness which is chronic Dispo with DC home with HH (1) Closed right hip fracture (2) Fall Status: Acute (3) Hip fracture, right (4) Dizziness Status: Acute (5) SAH (subarachnoid hemorrhage) Status: Acute (6) Anemia (7) Hyperlipidemia (8) Hypertension (9) Chronic vertigo Status: Acute Reason Hospital Visit Verification and Attestation of Medical Student E/M Service A medical student performed and documented this service in my presence. I reviewed and verified all information documented by the medical student and made modifications to such information, when appropriate. I personally performed the physical exam and medical decision making. Radha Barker, Oct 17, 2018,15:25 Discharge Summary Discharge Physical Examination Allergies: Coded Allergies: No Known Drug Allergies (Verified , 04/29/15) Vitals & I&Os Vital Signs Date Time Temp Pulse Resp B/P (MAP) Pulse Ox O2 Delivery O2 Flow Rate FiO2 10/26/18 13:20 36.3 94 16 113/71 96 Room Air Hospital Course Was the Problem List Reviewed?: Yes Hospital course: Patient had an uneventful 11 day hospital course while in inpatient rehabilitation after sustaining a right hip fracture and uncomplicated repair. Dr. Sweeney her primary care provider was consulted also. She is very impulsive and continues to be a fall risk that there was nothing more that could be done to completely resolve that problem since she does have chronic vertigo and had a history of a subdural hematoma from a fall last year and she lives alone although she does have a good support system. Counseled patient to choose assisted living at discharge via [facility] to be near her but she declined after multiple attempts. Home health was initiated at discharge. She was able to ambulate with a walker and pain was well controlled from the right hip fracture and bowels returned back to normal and she was discharged in improved condition after participating in all therapy requirements. Labs (last 24 hrs) Laboratory Tests 10/17/18 05:25: White Blood Count 7.8, Red Blood Count 3.96L, Hemoglobin 11.6, Hematocrit 35, Mean Corpuscular Volume 89, Mean Corpuscular Hemoglobin 29, Mean Corpuscular Hemoglobin Concent 33, Red Cell Distribution Width 12.6, Platelet Count 237, Mean Platelet Volume 10.7H, Neutrophils (%) (Auto) 72, Lymphocytes (%) (Auto) 19, Monocytes (%) (Auto) 7, Eosinophils (%) (Auto) 2, Basophils (%) (Auto) 0, Neutrophils # (Auto) 5.6, Lymphocytes # (Auto) 1.5, Monocytes # (Auto) 0.6, Eosinophils # (Auto) 0.2, Basophils # (Auto) 0.0, Sodium Level 137, Potassium Level 4.0, Chloride Level 104, Carbon Dioxide Level 23, Anion Gap 10, Blood Urea Nitrogen 10, Creatinine 0.70, Estimat Glomerular Filtration Rate > 60, BUN/Creatinine Ratio 14, Glucose Level 108H, Calcium Level 9.2, Corrected Calcium 9.6, Total Bilirubin 0.6, Aspartate Amino Transf (AST/SGOT) 15, Alanine Aminotransferase (ALT/SGPT) 12, Alkaline Phosphatase 96, Total Protein 7.3, Albumin 3.5 10/22/18 04:56: White Blood Count 4.8, Red Blood Count 3.88L, Hemoglobin 11.1L, Hematocrit 35, Mean Corpuscular Volume 91, Mean Corpuscular Hemoglobin 29, Mean Corpuscular Hemoglobin Concent 32, Red Cell Distribution Width 13.1, Platelet Count 292, Mean Platelet Volume 10.3, Neutrophils (%) (Auto) 55, Lymphocytes (%) (Auto) 32, Monocytes (%) (Auto) 9, Eosinophils (%) (Auto) 4, Basophils (%) (Auto) 0, Neutrophils # (Auto) 2.6, Lymphocytes # (Auto) 1.5, Monocytes # (Auto) 0.4, Eosinophils # (Auto) 0.2, Basophils # (Auto) 0.0, Sodium Level 141, Potassium Level 4.0, Chloride Level 108H, Carbon Dioxide Level 22, Anion Gap 11, Blood Urea Nitrogen 13, Creatinine 0.74, Estimat Glomerular Filtration Rate > 60, BUN/Creatinine Ratio 18, Glucose Level 104, Calcium Level 8.8, Corrected Calcium 9.3, Total Bilirubin 0.3, Aspartate Amino Transf (AST/SGOT) 21, Alanine Mckeon otransferase (ALT/SGPT) 28, Alkaline Phosphatase 95, Total Protein 6.9, Albumin 3.4 Pending Labs Laboratory Tests 10/17/18 05:25: White Blood Count 7.8, Red Blood Count 3.96, Hemoglobin 11.6, Hematocrit 35, Mean Corpuscular Volume 89, Mean Corpuscular Hemoglobin 29, Mean Corpuscular Hemoglobin Concent 33, Red Cell Distribution Width 12.6, Platelet Count 237, Mean Platelet Volume 10.7, Neutrophils (%) (Auto) 72, Lymphocytes (%) (Auto) 19, Monocytes (%) (Auto) 7, Eosinophils (%) (Auto) 2, Basophils (%) (Auto) 0, Neutrophils # (Auto) 5.6, Lymphocytes # (Auto) 1.5, Monocytes # (Auto) 0.6, Eosinophils # (Auto) 0.2, Basophils # (Auto) 0.0, Sodium Level 137, Potassium Level 4.0, Chloride Level 104, Carbon Dioxide Level 23, Anion Gap 10, Blood Urea Nitrogen 10, Creatinine 0.70, Estimat Glomerular Filtration Rate > 60, BUN/Creatinine Ratio 14, Glucose Level 108, Calcium Level 9.2, Corrected Calcium 9.6, Total Bilirubin 0.6, Aspartate Amino Transf (AST/SGOT) 15, Alanine Aminot ransferase (ALT/SGPT) 12, Alkaline Phosphatase 96, Total Protein 7.3, Albumin 3.5 10/22/18 04:56: White Blood Count 4.8, Red Blood Count 3.88, Hemoglobin 11.1, Hematocrit 35, Mean Corpuscular Volume 91, Mean Corpuscular Hemoglobin 29, Mean Corpuscular Hemoglobin Concent 32, Red Cell Distribution Width 13.1, Platelet Count 292, Mean Platelet Volume 10.3, Neutrophils (%) (Auto) 55, Lymphocytes (%) (Auto) 32, Monocytes (%) (Auto) 9, Eosinophils (%) (Auto) 4, Basophils (%) (Auto) 0, Neutrophils # (Auto) 2.6, Lymphocytes # (Auto) 1.5, Monocytes # (Auto) 0.4, Eosinophils # (Auto) 0.2, Basophils # (Auto) 0.0, Sodium Level 141, Potassium Level 4.0, Chloride Level 108, Carbon Dioxide Level 22, Anion Gap 11, Blood Urea Nitrogen 13, Creatinine 0.74, Estimat Glomerular Filtration Rate > 60, BUN/Creatinine Ratio 18, Glucose Level 104, Calcium Level 8.8, Corrected Calcium 9.3, Total Bilirubin 0.3, Aspartate Amino Transf (AST/SGOT) 21, Alanine Aminotransferase (ALT/SGPT) 28, Alkaline Phosphatase 95, Total Protein 6.9, Albumin 3.4 Discharge Home Medications: Active Scripts Active Fluticasone Propionate 16 Gm [place].susp 0 [place] NS HS Hydrocodone/Acetaminophen 5/325mg Tablet (Acetaminophen/Hydrocodone Bitart) 1 Tab Tab 1-2 Tab PO Q6H PRN Metoprolol Succinate 25 Mg Tab.er.24h 25 Mg PO DAILY Reported Meclizine HCl 25 Mg Tablet 25 Mg PO TID PRN Crestor (Rosuvastatin Calcium) 10 Mg Tablet 10 Mg PO HS Instructions to patient/family Please see electronic discharge instructions given to patient. Diagnosis/Problems Diagnosis/Problems (1) Closed right hip fracture (2) Fall Status: Acute (3) Hip fracture, right (4) Dizziness Status: Acute (5) SAH (subarachnoid hemorrhage) Status: Acute (6) Anemia (7) Hyperlipidemia (8) Hypertension (9) Chronic vertigo Status: Acute Clinical Quality Measures DVT/VTE Risk/Contraindication: Risk Factor Score Per Nursin RFS Level Per Nursing on Admit: 4+=Very High RADHA BARKER DO Oct 26, 2018 12:09
--- NOTE | 2018-10-26 12:45 | Progress Note ---
Subjective Date Seen by a Provider: Oct 26, 2018 Time Seen by a Provider: 09:50 Subjective/Events-last exam Fwup right compacted femoral fracture, HTN, dizziness, confusion. Sitting up in chair. Wants to go home even though she has been told previous stay as well as this stay that AL or NH is preferred for her due to high fall risk. Objective Exam Vital Signs Date Time Temp Pulse Resp B/P (MAP) Pulse Ox O2 Delivery O2 Flow Rate FiO2 10/26/18 09:00 Room Air 10/26/18 05:25 36.3 81 16 120/76 (91) 96 Room Air 10/25/18 21:15 Room Air 10/25/18 18:00 36.8 76 16 148/74 (98) 97 Room Air I & O 10/26/18 07:00 Intake Total 1150 ml Balance 1150 ml Capillary Refill : Less Than 3 Seconds General Appearance: No Apparent Distress Neck: Supple Respiratory: Lungs Clear Cardiovascular: Regular Rate, Rhythm Extremity: Non Tender, No Calf Tenderness, No Pedal Edema Neurologic/Psychiatric: Alert, Oriented x3 Skin: Warm/Dry Assessment/Plan Assessment/Plan Assess & Plan/Chief Complaint 1. Right Compacted Femoral Fracture--pain improved, PT/OT, patient wanting to go home today despite recommendations that she should wait until Monday and should go to AL or a NH--she states her does not want to move to AL or a NH but I explained to her that the AL or NH is what is best for both of them since he has dementia and needs 24hr care which she cannot provide especially with her recent hip fracture 2. Hypertension--back on low dose metoprolol 3. Vertigo--high fall risk 4. Confusion/Dementia--worse this hospital stay, has not tolerated aricept or namenda in past due to worsening dizziness, could consider Exelon patch but not sure if would benefit much from this and if would have side effects as well, recommend AL or NH placement for DC but as above, patient refusing Clinical Quality Measures DVT/VTE Risk/Contraindication: Risk Factor Score Per Nursin RFS Level Per Nursing on Admit: 4+=Very High NICANOR ESTRELLA DO Oct 26, 2018 12:45
--- NOTE | 2018-10-26 13:00 | NUR ---
Attempted to contact Rosana Nova with [facility] regarding patient's discharge. Left a message for Rosana Nova to return my phone call as soon as possible.
[2018-10-26 13:20] VITALS: BP 113/71
--- NOTE | 2018-10-26 14:03 | Therapy Team Discharge Summary ---
Therapy Discharge Summary Discharge Recommendations Date of Discharge Oct 26, 2018 at 12:00 Therapy D/C Recommendations: Physical Therapy Home Care Occupational Therapy Pt admitted as R DAYLIN, pt's admit FIM scores: eat 5, groom 5, shower 4, UB dress 5, LB dress 4, Toileting 4, toilet transfer 4. Pt and OT worked for greater IND within home environment, including ADL/ IADL training, use of AE, increased safety training, environmental set-up, and functional mobility. Pt showed decreased safety awareness and pain, posing as barrier to pt's progress. Pt demonstrated increases in all FIM areas, as skilled techniques return- demonstrated. Pt d/c FIMs: eat 7, groom 6, shower 5, UB dress 6, LB dress 5, Toileting 5, transfers 5, toilet transfer 5. Assisted Living (Due to pt's decreased safety awareness and lack of support at home, recommend [facility]) Post-acute OT services to further address safety within differing environment. Equpiment Recommendations-D/C: Field Producer, Walker Bag or Basket, Dressing Stick, Long Shoe Horn Decreased Activ Tolerance, Decreased Safety Aware, Impaired Funct Balance, Impaired I ADL's, Impaired Self-Care Skills PT Skilled Nursing Goals Service Shop Foreman Goals PT Service Shop Foreman Goals Time Frame: Nov 10, 2018 Transfers (B,C,W/C) (FIM): 6 (met) Roll Left to Right (QC): 6 Sit to Lying (QC): 6 Lying-Sitting on Side/Bed(QC): 6 Sit to Stand (QC): 6 Chair/Ego-ue-Hlqvv Xfer(QC): 6 Car Transfer (QC): 6 Does the Patient Walk: Yes Gait (FIM): 6 (met) Gait distance (FIM): 3=150 ft Distance: 250' Walk 10 feet (QC): 6 Walk 10ft-Uneven Surface(QC): 6 Walk 50ft with 2 Turns (QC): 6 Walk 150 ft (QC): 6 Gait Level of Assist: 6 Gait Assistive Device: FWW Stairs (FIM): 2 (exceeded; scored a 4) # of Steps: 4 1 Step (curb) (QC): 5 4 Steps (QC): 5 12 Steps (QC): 9 Stairs Level Of Assist: 5 Picking up an Object (QC): 5 OT Service Shop Foreman Goals Skilled Nursing Goals Time Frame: Nov 06, 2018 Eating (FIM): 6 (met) Eating (QC): 6 (met) Oral Hygiene (QC): 6 Grooming(FIM): 6 (met) Bathing(FIM): 5 (met) Shower/Bathe Self (QC): 5 (met) Upper Body Dressing(FIM): 6 (met) Upper Body Dressing (QC): 6 Lower Body Dressing(FIM): 5 (met) Lower Body Dressing (QC): 5 On/Off Footwear (QC): 5 Toileting(FIM): 6 Toileting Hygiene (QC): 6 Toilet/Commode Transfer(FIM): 6 Toilet/Commode Transfer (QC): 6 Shower Transfer(FIM): 5 Additional Goals: 1-Demonstrate ADL Tasks, 2-Verbalize Understanding, 3- ImproveStrength/Morgan 1=Demonstrate adherence to instructed precautions during ADL tasks. 2=Patient will verbalize/demonstrate understanding of assistive devices/modifications for ADL. 3=Patient will improve strength/tolerance for activity to enable patient to perform ADL's. BLAS HERNANDEZ OTR Oct 26, 2018 14:03
--- NOTE | 2018-10-29 14:42 | NUR ---
Viri Nova with [facility] returned my phone call today. Viri Nova was informed of patient's discharge home on 10/26/18.
--- NOTE | 2018-10-31 10:25 | Progress Note ---
Standard Progress Note Progress Notes/Assess & Plan Time Seen by a Provider: 10:25 Progress/Assessment & Plan Addendum to anesthesia record for 10/14: General Anesthesia with Fascia iliaca Blo ck per surgeon request. KANDICE MODI CRNA Oct 31, 2018 10:25
== END 2018-10-26 12:00 | disposition home health service (06) | DRG 561 ==
PROVIDERS: ADMIT Internal Medicine; ATTEND Internal Medicine
DX: S72.001D Fracture of unspecified part of neck of right femur, subsequent encounter for closed fracture with routine healing (principal); R29.6 Repeated falls; F03.90 Unspecified dementia, unspecified severity, without behavioral disturbance, psychotic disturbance, mood disturbance, and anxiety; R45.87 Impulsiveness; R42 Dizziness and giddiness; E78.5 Hyperlipidemia, unspecified; I10 Essential (primary) hypertension; K21.9 Gastro-esophageal reflux disease without esophagitis; K57.90 Diverticulosis of intestine, part unspecified, without perforation or abscess without bleeding; K44.9 Diaphragmatic hernia without obstruction or gangrene; F41.9 Anxiety disorder, unspecified; D64.9 Anemia, unspecified; I07.1 Rheumatic tricuspid insufficiency; Z86.73 Personal history of transient ischemic attack (TIA), and cerebral infarction without residual deficits; Z87.820 Personal history of traumatic brain injury; V48.4XXD Person boarding or alighting a car injured in noncollision transport accident, subsequent encounter; Y92.015 Private garage of single-family (private) house as the place of occurrence of the external cause
CPT/HCPCS: 36415; 80053; 85025

== ENCOUNTER → 2019-03-01 | Outpatient (CLI) | payer MEDICARE ==
[~2019-03-01] MED LIST changes: +ACHD5005 PO; +ENOX40DI8 SC; +FLUT16SP22 NS; -METO-370 PO; +METO50TA7 PO; +MTP25TSR PO; +ROSU10TA22 PO; +SENN-20 PO
[2019-03-01 12:14] LABS: BASOPHILS % (AUTO) 1 % (0-10); EOSINOPHILS # (AUTO) 0.1 10^3/uL (0.0-0.3); EOSINOPHILS % (AUTO) 2 % (0-10); HEMATOCRIT 42 % (35-52); HEMOGLOBIN 13.7 G/DL (11.5-16.0); LYMPHOCYTES # (AUTO) 1.4 X 10^3 (1.0-4.0); LYMPHOCYTES % (AUTO) 23 % (12-44); MEAN CORPUSCULAR HEMOGLOBIN 29 PG (25-34); MEAN CORPUSCULAR HGB CONC 33 G/DL (32-36); MEAN CORPUSCULAR VOLUME 88 FL (80-99); MEAN PLATELET VOLUME 11.1 FL (7.4-10.4); MONOCYTES # (AUTO) 0.4 X 10^3 (0.0-1.0); MONOCYTES % (AUTO) 7 % (0-12); NEUTROPHILS # (AUTO) 4.1 X 10^3 (1.8-7.8); NEUTROPHILS % (AUTO) 68 % (42-75); PLATELET COUNT 206 10^3/uL (130-400); RED CELL DISTRIBUTION WIDTH 13.2 % (10.0-14.5)
--- NOTE | 2019-03-01 12:23 | Diagnostic Imaging Report ---
EXAMINATION: Supine abdomen at 12:02 p.m. INDICATION: Abdominal pain. TECHNIQUE: A single supine view of the abdomen and pelvis was obtained. FINDINGS: There is gas in both the large and small bowel in a nonspecific fashion. This appearance is similar to the integration analyst film from the CT abdomen/pelvis exam of 10/13/2018. There is no evidence for a bowel obstruction. There is no mass, organomegaly, or pathological calcification evident. The prior exam did note an impacted fracture involving the proximal right femoral neck. In the interval since the prior exam, three orthopedic fixation screws have been inserted into the right femoral neck. There is no acute bony abnormality noted. IMPRESSION: 1. The bowel gas pattern is nonspecific. There is no acute abnormality noted. 2. There has been an interval surgical procedure involving the right hip. Dictated by: Dictated on workstation # [id number]
--- NOTE | 2019-03-01 12:23 | Diagnostic Imaging Report ---
EXAMINATION: Left ribs at 12:03 p.m. INDICATION: Fell, rib pain. Three views of the left ribs were obtained. FINDINGS: There is no evidence for a displaced rib fracture. No other acute bony abnormality is noted. There is no sign of an injury to the underlying left lung. Specifically, there is no pneumothorax. The heart size is within normal limits and stable when compared to the prior chest exam of 10/14/2015. IMPRESSION: There is no evidence for a displaced fracture of the left ribs. Dictated by: Dictated on workstation # [id number]
[2019-03-01 12:35] LABS: ALANINE AMINOTRANSFERASE 21 U/L (0-55); ALKALINE PHOSPHATASE 86 U/L (40-136); BILIRUBIN,TOTAL 0.3 MG/DL (0.1-1.0); BUN/CREATININE RATIO 19; CALCIUM 9.3 MG/DL (8.5-10.1); CARBON DIOXIDE 22 MMOL/L (21-32); CHLORIDE 107 MMOL/L (98-107); CREATININE SERUM 0.77 MG/DL (0.60-1.30); GFR ESTIMATED > 60; GLUCOSE 128 MG/DL (70-105); POTASSIUM 3.7 MMOL/L (3.6-5.0); SODIUM 140 MMOL/L (135-145); TOTAL PROTEIN 7.7 GM/DL (6.4-8.2)
== END ==
LOC: RAD 11:39
PROVIDERS: ATTEND Nurse Practitioner Family
DX: I10 Essential (primary) hypertension (principal); R73.9 Hyperglycemia, unspecified; R10.9 Unspecified abdominal pain; R07.81 Pleurodynia; W19.XXXA Unspecified fall, initial encounter; Z98.890 Other specified postprocedural states
CPT/HCPCS: 36415; 71100; 74018; 80053; 83036; 85025

== ENCOUNTER 2019-03-19 11:03 | Outpatient (RCR) | payer MEDICARE ==
[~2019-03-19 11:03] MED LIST changes: -MECL-106 PO; +MECL-149 PO
== END 2019-06-17 | disposition home or self-care (01) ==
LOC: CARD 11:03
PROVIDERS: ATTEND Internal Medicine Cardiovascular Disease
DX: I49.1 Atrial premature depolarization (principal); I10 Essential (primary) hypertension; R00.2 Palpitations
CPT/HCPCS: 93225; 93226

== ENCOUNTER 2019-09-30 13:49 | Emergency (ER) | payer MEDICARE ==
[~2019-09-30] VITALS: Ht 146 cm; Wt 57.1 kg
[2019-09-30] MEDS ORDERED: NS IV 1000 ML 1,000 ML IV SCH (13:55)
--- NOTE | 2019-09-30 14:02 | ED Fall/Injury ---
General Stated Complaint: FALLS;ALTERED MENTAL STATUS Source: patient, EMS, caregiver Exam Limitations: language barrier History of Present Illness Date Seen by Provider: Sep 30, 2019 Time Seen by Provider: 13:43 Initial Comments the patient presents to ER by EMS from home where the past 3 days she's had altered mental status according to her caregiver and increased falls. She denies pain anywhere but says she has had nausea and vomited once. No fevers or chills but she has had an occasional cough. She does answer all orientation questions appropriately for EMS and had a blood sugar of 209 on their arrival. She has a history of a brain bleed several years ago with some difficulty expressing herself. She also speaks Croatian as a second language. Patient denies dysuria or constipation or diarrhea. No rash fevers or chills. She says she feels unstable on her feet. She is not feeling syncope or dizziness. Records do not demonstrate that the patient takes blood thinners. Echocardiogram [address] Ruiz demonstrates an EF of 55-65% and grade 2 diastolic dysfunction. Bagt-wr-kozdgkjg tricuspid regurgitation. She has a past medical history of chronic dizziness with increased fall risk. Right hip fracture your ago. Followed by Dr. Sweeney. History of hypertension, hyperlipidemia, anemia, subarachnoid hemorrhage related to fall. 2 years ago she had a subdural hematoma related to a fall. Allergies and Home Medications Allergies Coded Allergies: No Known Drug Allergies (Verified , 04/29/15) Home Medications Fluticasone Propionate 16 Gm [place].susp, 0 SPRAY NS HS Prescribed by: CORBIN WINTER on 10/26/18 0834 Hydrocodone Bit/Acetaminophen 1 Tab Tab, 1-2 TAB PO Q6H PRN for PAIN-MODERATE Prescribed by: CORBIN WINTER on 10/26/18 0834 Meclizine HCl 25 Mg Tablet, 25 MG PO TID PRN for DIZZINESS, (Reported) Metoprolol Succinate 25 Mg Tab.er.24h, 25 MG PO DAILY Prescribed by: CORBIN WINTER on 10/26/18 0834 Rosuvastatin Calcium 10 Mg Tablet, 10 MG PO HS, (Reported) Patient Home Medication List Home Medication List Reviewed: Yes Review of Systems Review of Systems Constitutional: No chills, No diaphoresis, No malaise Eyes: Denies Blindness, Denies Blurred Vision Ears, Nose, Mouth, Throat: denies ear pain, denies ear discharge Respiratory: cough; No phlegm, No short of breath, No wheezing Cardiovascular: No chest pain, No palpitations Gastrointestinal: No abdominal pain, No constipation, No diarrhea; nausea, vomiting (x1) Genitourinary: No decreased output, No discharge Musculoskeletal: No back pain, No joint pain All Other Systems Reviewed Negative Unless Noted: Yes Past Dqfyngb-Ianzil-Igzkho Hx Patient Social History Alcohol Use: Denies Use Recreational Drug Use: No Smoking Status: Never a Smoker 2nd Hand Smoke Exposure: No Recent Hopitalizations: Yes (SUBARACHNOID HEMORRHAGE) Immunizations Up To Date Tetanus Booster (TDap): More than 5yrs Seasonal Allergies Seasonal Allergies: No Past Medical History Surgeries: Yes (EGD/COLONOSCOPY 04/2015) Orthopedic Respiratory: No Cardiac: Yes High Cholesterol, Hypertension, Valvular Heart Disease Neurological: Yes TIA, Vertigo 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 Diabetes father liver disease Physical Exam Vital Signs Vital Signs - First Documented 09/30/19 13:49 Temp 36.9 Pulse 82 Resp 20 B/P (MAP) 148/81 (103) Pulse Ox 97 O2 Delivery Room Air Capillary Refill : Height, Weight, BMI Height: 5'0.00" Weight: 118lbs. 1.0oz. [id number]; 23.1 BMI Method:Stated General Appearance: WD/WN, no apparent distress HEENT: PERRL/EOMI, normal ENT inspection, TMs normal, pharynx normal Neck: non-tender, full range of motion, supple Cardiovascular: normal peripheral pulses, regular rate, rhythm, no edema Respiratory: lungs clear, normal breath sounds, no respiratory distress, no accessory muscle use Peripheral Pulses: 2+ Radial Pulses (R), 2+ Radial Pulses (L) Gastrointestinal: normal bowel sounds, non tender, soft, no organomegaly Extremities: normal range of motion, non-tender, normal inspection, no pedal edema, no calf tenderness, normal capillary refill Neurologic/Psychiatric: telephone order dispatcher II-XII nml as tested, no motor/sensory deficits, alert, normal mood/affect, oriented x 3, other (NIH is 0) Skin: normal color, warm/dry Fermin Coma Score Best Eye Response: (4) Open Spontaneously Best Verbal Response: (5) Oriented Best Motor Response: (6) Obeys Commands Fermin Total: 15 Progress/Results/Core Measures Results/Orders Lab Results Laboratory Tests Test 09/30/19 14:20 09/30/19 14:53 09/30/19 15:51 Range/Units White Blood Count 6.3 4.3-11.0 10^3/uL Red Blood Count 3.84 L 4.35-5.85 10^6/uL Hemoglobin 11.4 L 11.5-16.0 G/DL Hematocrit 35 35-52 % Mean Corpuscular Volume 91 80-99 FL Mean Corpuscular Hemoglobin 30 25-34 PG Mean Corpuscular Hemoglobin Concent 33 32-36 G/DL Red Cell Distribution Width 13.4 10.0-14.5 % Platelet Count 236 130-400 10^3/uL Mean Platelet Volume 11.3 H 7.4-10.4 FL Neutrophils (%) (Auto) 77 H 42-75 % Lymphocytes (%) (Auto) 17 12-44 % Monocytes (%) (Auto) 5 0-12 % Eosinophils (%) (Auto) 1 0-10 % Basophils (%) (Auto) 0 0-10 % Neutrophils # (Auto) 4.8 1.8-7.8 X 10^3 Lymphocytes # (Auto) 1.1 1.0-4.0 X 10^3 Monocytes # (Auto) 0.3 0.0-1.0 X 10^3 Eosinophils # (Auto) 0.0 0.0-0.3 10^3/uL Basophils # (Auto) 0.0 0.0-0.1 10^3/uL B-Type Natriuretic Peptide 31.4 <100.0 PG/ML Sodium Level 142 135-145 MMOL/L Potassium Level 3.3 L 3.6-5.0 MMOL/L Chloride Level 109 H 98-107 MMOL/L Carbon Dioxide Level 27 21-32 MMOL/L Anion Gap 6 5-14 MMOL/L Blood Urea Nitrogen 25 H 7-18 MG/DL Creatinine 0.84 0.60-1.30 MG/DL Estimat Glomerular Filtration Rate > 60 BUN/Creatinine Ratio 30 Glucose Level 133 H 70-105 MG/DL Calcium Level 8.5 8.5-10.1 MG/DL Corrected Calcium 8.9 8.5-10.1 MG/DL Total Bilirubin 0.4 0.1-1.0 MG/DL Aspartate Amino Transf (AST/SGOT) 14 5-34 U/L Alanine Aminotransferase (ALT/SGPT) 17 0-55 U/L Alkaline Phosphatase 74 40-136 U/L Troponin I < 0.028 <0.028 NG/ML C-Reactive Protein High Sensitivity 0.28 0.00-0.50 MG/DL Total Protein 6.7 6.4-8.2 GM/DL Albumin 3.5 3.2-4.5 GM/DL Serum Alcohol < 10 <10 MG/DL Urine Color YELLOW Urine Clarity CLEAR Urine pH 7.0 5-9 Urine Specific [place] 1.020 1.016-1.022 Urine Protein 1+ H NEGATIVE Urine Glucose (UA) NEGATIVE NEGATIVE Urine Ketones NEGATIVE NEGATIVE Urine Nitrite NEGATIVE NEGATIVE Urine Bilirubin NEGATIVE NEGATIVE Urine Urobilinogen 0.2 < = 1.0 MG/DL Urine Leukocyte Esterase NEGATIVE NEGATIVE Urine RBC (Auto) TRACE-I NEGATIVE Urine RBC NONE /HPF Urine WBC RARE /HPF Urine Squamous Epithelial Cells 2-5 /HPF Urine Crystals NONE /LPF Urine Amorphous Sediment RARE JADON URATES H /LPF Urine Bacteria TRACE /HPF Urine Casts NONE /LPF Urine Mucus NEGATIVE /LPF Urine Culture Indicated NO Urine Opiates Screen NEGATIVE NEGATIVE Urine Oxycodone Screen NEGATIVE NEGATIVE Urine Methadone Screen NEGATIVE NEGATIVE Urine Propoxyphene Screen NEGATIVE NEGATIVE Urine Barbiturates Screen NEGATIVE NEGATIVE Ur Tricyclic Antidepressants Screen NEGATIVE NEGATIVE Urine Phencyclidine Screen NEGATIVE NEGATIVE Urine Amphetamines Screen NEGATIVE NEGATIVE Urine Methamphetamines Screen NEGATIVE NEGATIVE Urine Benzodiazepines Screen NEGATIVE NEGATIVE Urine Cocaine Screen NEGATIVE NEGATIVE Urine Cannabinoids Screen NEGATIVE NEGATIVE My Orders Orders - LONNY LOPEZ Ed Iv/Invasive Line Start (09/30/19 13:55) Ns Iv 1000 Ml (Sodium Chloride 0.9%) (09/30/19 13:55) Ct Head/Cervical Spine Wo (09/30/19 13:55) Chest 1 View, Ap/Pa Only (09/30/19 13:55) Ua Culture If Indicated (09/30/19 13:55) Drug Screen Stat (Urine) (09/30/19 13:55) Alcohol (09/30/19 13:55) Cbc With Automated Diff (09/30/19 13:55) Comprehensive Metabolic Panel (09/30/19 13:55) Hs C Reactive Protein (09/30/19 13:55) Continuous Ekg Monitoring (09/30/19 13:55) Ekg Tracing (09/30/19 13:55) BNP (09/30/19 13:55) Troponin I (09/30/19 13:55) Orthostatic Vital Signs (Adult (09/30/19 14:02) Ibuprofen Tablet (Motrin Tablet) (09/30/19 15:45) Hand, Right, 3 Views (09/30/19 15:58) Hip, Right, 2 Views (09/30/19 15:58) Acetaminophen Tablet/Caplet (Tylenol T (09/30/19 16:55) Meclizine Tablet (Antivert Tablet) (09/30/19 16:56) Medications Given in ED Current Medications Medications Dose Ordered Sig/Angelica Route Start Time Stop Time Status Last Admin Dose Admin Acetaminophen 325 mg STK-MED ONCE .ROUTE 09/30/19 16:55 09/30/19 16:59 DC 09/30/19 17:05 650 MG Ibuprofen 800 mg ONCE ONCE PO 09/30/19 15:45 09/30/19 15:46 DC 09/30/19 15:41 800 MG Meclizine HCl 25 mg STK-MED ONCE .ROUTE 09/30/19 16:56 09/30/19 16:59 DC 09/30/19 17:02 25 MG Vital Signs/I&O 09/30/19 09/30/19 09/30/19 13:49 14:34 14:37 Temp 36.9 Pulse 82 73 73 82 87 80 82 Resp 20 B/P (MAP) 148/81 (103) 131/72 (91) 131/72 (91) 141/83 (102) 141/83 (102) 149/82 (104) 149/82 (104) Pulse Ox 97 O2 Delivery Room Air Progress Progress Note #1: Time: 14:05 Progress Note NIH normal. No neurologic deficits. Plan to get a scan of her head and C-spine to rule out any changes related to her altered mental status or her falls. We reviewed her medicines and she is on the beta pebbles as well as meclizine in the past. Vertigo or orthostasis is a possibility as we have some orthostatic vital signs. We'll give her some fluids IV check some labs including urinalysis looking for signs of infection. She has a cough so we'll get a chest x-ray. She has not coughed since she's been here. Her vital signs are normal at rest.EKG troponin and BNP to do a syncope score although the patient does not endorse syncope. She is not the best historian given her language barrier and history of stroke. She could have a dysrhythmia. We'll keep her on telemetry. Progress Note #2: Time: 17:01 Progress Note Using the language line and we did discuss the results. It does sound the patient has some vertigo probably BPPV. No neurologic symptoms. No material deterioration during her stay in the ER. We discussed with her that perhaps she could talk to her primary doctor about doing physical therapy tilt table testing and therapy. 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 Patient is in agreement with this plan. Really give her another dose of Tylenol in addition to the ibuprofen because she said her pain is not completely improved. We will going to also give her a dose of meclizine. We did do some teaching because the patient was confused thinking that the meclizine and metoprolol were the same drug since they appeared similar to her in print. All of her questions were answered and she is ready to go home. Initial ECG Impression Date: Sep 30, 2019 Initial ECG Impression Time: 13:52 Initial ECG Rate: 79 Initial ECG Rhythm: Normal Sinus Initial ECG Intervals: Normal Initial ECG Impression: Normal Initial ECG Comparisson: Unchanged Comment normal sinus rhythm without dysrhythmia or clinically relevant ST elevation or depression. Diagnostic Imaging Diagonstic Imaging: Xray Plain Films/CT/US/NM/MRI: chest Comments NAME: DARRICK GEORGE [facility] REC#: [id number] PT STATUS: REG ER : 1945 PHYSICIAN: LONNY LOPEZ MD ADMIT DATE: 09/30/19/ER Draft Date of Exam:09/30/19 CHEST 1 VIEW, AP/PA ONLY INDICATION: Altered mental status. Hyperglycemia. Multiple recent falls.. TECHNIQUE: Single view chest 3:10 PM. CORRELATION STUDY: 10/13/2018 FINDINGS: The heart size, mediastinal configuration and pulmonary vascularity are within normal limits. The lungs are clear with no consolidating infiltrate. There is no significant effusion or pneumothorax. IMPRESSION: 1. Negative for acute abnormality of the chest. Dictated on workstation # [id number] Dict: 09/30/19 1514 Trans: 09/30/19 1515 DO [id number] Interpreted by: LENIN ELAINE DO Electronically signed by: Reviewed: Reviewed by Me Diagonstic Imaging: CT Plain Films/CT/US/NM/MRI: c-spine, head Comments no acute intracranial hemorrhage, mass effect, midline shift or tumor. No calvarial fracture. No C-spine malalignment, fracture acutely or deformity. NAME: DARRICK GEORGE [facility] REC#: [id number] PT STATUS: REG ER : 1945 PHYSICIAN: LONNY LOPEZ MD ADMIT DATE: 09/30/19/ER Draft Date of Exam:09/30/19 CT HEAD/CERVICAL SPINE WO PROCEDURE: CT head and CT cervical spine without contrast. TECHNIQUE: Multiple contiguous axial images were obtained through the brain and cervical spine without the use of intravenous contrast. Sagittal and coronal reformations through the cervical spine were then performed. Auto Exposure Controls were utilized during the CT exam to meet ALARA standards for radiation dose reduction. INDICATION: Multiple recent falls, headache, not feeling right. Hyperglycemia. CORRELATION STUDY: 10/13/2018. FINDINGS: CT HEAD: Scattered areas of scalp edema are present, most pronounced in the high right parietal region. The ventricles and sulci are generally stable and age appropriate. There are mild scattered areas of decreased attenuation, likely reflecting small vessel ischemic disease. This is slightly more pronounced involving the left frontal lobe. No definitive evidence for edema. Basal ganglia calcification. No intracranial hemorrhage. The bony calvarium is intact. There is a mildly nodular bony scalp protrusion over the left frontal region. The paranasal sinuses and mastoid air cells are generally clear. CT CERVICAL SPINE: Reformatted images demonstrate some straightening but otherwise normal alignment. The vertebral body heights are unchanged. There is no acute appearing fracture. The posterior elements are intact and in normal alignment. The odontoid is intact. There are various degrees of mild disc space narrowing. No high degree osseous encroachment or narrowing of the neural foramina and/or spinal canal. The paraspinal soft tissues are unremarkable. Benign-appearing calcification in the right lobe thyroid gland. Airway is patent. Lung apices are clear. IMPRESSION: CT HEAD: 1. Negative for acute traumatic intracranial abnormality. 2. Scattered areas of scalp edema. CT CERVICAL SPINE: Negative for acute fracture or traumatic subluxation. Dictated on workstation # [id number] Dict: 09/30/19 1515 Trans: 09/30/19 1525 [id number] Interpreted by: LENIN ELAINE DO Electronically signed by: Reviewed: Reviewed by [place] Diagonstic Imaging: Xray Plain Films/CT/US/NM/MRI: hand (r) Comments NAME: SCARLETT GEORGEJuanitaDOZIER [facility] REC#: [id number] PT STATUS: REG ER : 1945 PHYSICIAN: LONNY LOPEZ MD ADMIT DATE: 09/30/19/ER Draft Date of Exam:09/30/19 HAND, RIGHT, 3 VIEWS EXAMINATION: Right hand radiographs, 3 views. COMPARISON: None. HISTORY: 74-year-old female, right hand pain. FINDINGS: There are limitations of the study relating to material external to the patient. This should be removed prior to imaging, if possible. There is no identified acute fracture. Bone mineralization and alignment are unremarkable. There is no identified cortical or aggressive bone destruction. The joint spaces are relatively well preserved. IMPRESSION: No identified acute bony abnormality of the right hand. Dictated on workstation # [id number] Dict: 09/30/19 1641 Trans: 09/30/19 1644 [id number] Interpreted by: DIONICIO MERCHANT MD Electronically signed by: Reviewed: Reviewed by [place] Diagonstic Imaging: Xray Plain Films/CT/US/NM/MRI: hip (r) Comments [facility]. [place], [place] [facility] [id number] PT STATUS: REG ER : 1945 PHYSICIAN: LONNY LOPEZ MD ADMIT DATE: 09/30/19/ER Draft Date of Exam:09/30/19 HIP, RIGHT, 2 VIEWS EXAMINATION: Right hip radiographs, 2 views. COMPARISON: None. HISTORY: 74-year-old female, right hip pain. FINDINGS: There are 3 lag screws in the right proximal femur traversing the intertrochanteric femur and femoral neck with the screw heads at the level of the femoral head. The fixation screws are intact without abnormal surrounding lucency. The right hip is not dislocated. There is no joint space loss of the right hip, osteophyte formation, or subchondral cystic change. There is no identified acute fracture. There are mild right sacroiliac degenerative changes. IMPRESSION: 1. Unremarkable appearance of the right hip joint. 2. Intact fixation screws in the right proximal femur without procedural-related complication. 3. Mild right sacroiliac degenerative changes. Dictated on workstation # [id number] Dict: 09/30/19 1643 Trans: 09/30/19 1645 [id number] Interpreted by: DIONICIO MERCHANT MD Electronically signed by: Reviewed: Reviewed by Me Departure Impression Primary Impression: Fall Qualified Codes: W19.XXXA - Unspecified fall, initial encounter Additional Impression: Vertigo Disposition: 01 HOME, SELF-CARE Condition: Stable Departure-Patient Inst. Decision time for Depature: 17:00 Referrals: NICANOR SWEENEY DO (PCP/Family) Primary Care Physician Patient Instructions: Vertigo (a Type of Dizziness) (DC) Add. Discharge Instructions: If your vertigo persists then you can take one tablet of meclizine as prescribed. Please do not mix this up with metoprolol as this might worsen your vertigo. Follow-up with Dr. Sweeney and discuss further treatment for your dizziness such as a tilt table testing through physical therapy or a referral to an ear nose and throat Surgeon who specializes in vertigo. Copy Copies To 1: NICANOR SWEENEY TITUS J Sep 30, 2019 14:02
--- NOTE | 2019-09-30 14:07 | NUR ---
[facility] student performing neuro exam at this time.
[2019-09-30 14:32] LABS: BASOPHILS % (AUTO) 0 % (0-10); EOSINOPHILS % (AUTO) 1 % (0-10); HEMATOCRIT 35 % (35-52); HEMOGLOBIN 11.4 G/DL (11.5-16.0); LYMPHOCYTES # (AUTO) 1.1 X 10^3 (1.0-4.0); LYMPHOCYTES % (AUTO) 17 % (12-44); MEAN CORPUSCULAR HEMOGLOBIN 30 PG (25-34); MEAN CORPUSCULAR HGB CONC 33 G/DL (32-36); MEAN CORPUSCULAR VOLUME 91 FL (80-99); MEAN PLATELET VOLUME 11.3 FL (7.4-10.4); MONOCYTES # (AUTO) 0.3 X 10^3 (0.0-1.0); MONOCYTES % (AUTO) 5 % (0-12); NEUTROPHILS # (AUTO) 4.8 X 10^3 (1.8-7.8); NEUTROPHILS % (AUTO) 77 % (42-75); PLATELET COUNT 236 10^3/uL (130-400); RED CELL DISTRIBUTION WIDTH 13.4 % (10.0-14.5); WHITE BLOOD COUNT 6.3 10^3/uL (4.3-11.0)
[2019-09-30 14:34] VITALS: BP_SYST 131; BP_SYST 141; BP_SYST 149; BP_DIAS 72; BP_DIAS 82; BP_DIAS 83
[2019-09-30 14:37] VITALS: BP_SYST 131; BP_SYST 141; BP_SYST 149; BP_DIAS 72; BP_DIAS 82; BP_DIAS 83
--- NOTE | 2019-09-30 15:15 | Diagnostic Imaging Report ---
INDICATION: Altered mental status. Hyperglycemia. Multiple recent falls.. TECHNIQUE: Single view chest 3:10 PM. CORRELATION STUDY: 10/13/2018 FINDINGS: The heart size, mediastinal configuration and pulmonary vascularity are within normal limits. The lungs are clear with no consolidating infiltrate. There is no significant effusion or pneumothorax. IMPRESSION: 1. Negative for acute abnormality of the chest. Dictated by: Dictated on workstation # [id number]
[2019-09-30 15:21] LABS: ALANINE AMINOTRANSFERASE 17 U/L (0-55); ALBUMIN 3.5 GM/DL (3.2-4.5); ALKALINE PHOSPHATASE 74 U/L (40-136); BILIRUBIN,TOTAL 0.4 MG/DL (0.1-1.0); BUN/CREATININE RATIO 30; CALCIUM 8.5 MG/DL (8.5-10.1); CARBON DIOXIDE 27 MMOL/L (21-32); CHLORIDE 109 MMOL/L (98-107); CREATININE SERUM 0.84 MG/DL (0.60-1.30); GFR ESTIMATED > 60; GLUCOSE 133 MG/DL (70-105); POTASSIUM 3.3 MMOL/L (3.6-5.0); SODIUM 142 MMOL/L (135-145); TOTAL PROTEIN 6.7 GM/DL (6.4-8.2)
--- NOTE | 2019-09-30 15:26 | Diagnostic Imaging Report ---
PROCEDURE: CT head and CT cervical spine without contrast. TECHNIQUE: Multiple contiguous axial images were obtained through the brain and cervical spine without the use of intravenous contrast. Sagittal and coronal reformations through the cervical spine were then performed. Auto Exposure Controls were utilized during the CT exam to meet ALARA standards for radiation dose reduction. INDICATION: Multiple recent falls, headache, not feeling right. Hyperglycemia. CORRELATION STUDY: 10/13/2018. FINDINGS: CT HEAD: Scattered areas of scalp edema are present, most pronounced in the high right parietal region. The ventricles and sulci are generally stable and age appropriate. There are mild scattered areas of decreased attenuation, likely reflecting small vessel ischemic disease. This is slightly more pronounced involving the left frontal lobe. No definitive evidence for edema. Basal ganglia calcification. No intracranial hemorrhage. The bony calvarium is intact. There is a mildly nodular bony scalp protrusion over the left frontal region. The paranasal sinuses and mastoid air cells are generally clear. CT CERVICAL SPINE: Reformatted images demonstrate some straightening but otherwise normal alignment. The vertebral body heights are unchanged. There is no acute appearing fracture. The posterior elements are intact and in normal alignment. The odontoid is intact. There are various degrees of mild disc space narrowing. No high degree osseous encroachment or narrowing of the neural foramina and/or spinal canal. The paraspinal soft tissues are unremarkable. Benign-appearing calcification in the right lobe thyroid gland. Airway is patent. Lung apices are clear. IMPRESSION: CT HEAD: 1. Negative for acute traumatic intracranial abnormality. 2. Scattered areas of scalp edema. CT CERVICAL SPINE: Negative for acute fracture or traumatic subluxation. Dictated by: Dictated on workstation # [id number]
[2019-09-30] MEDS ORDERED: IBUPROFEN 800 MG (MOTRIN) TAB PO ONE (15:45)
[2019-09-30 16:00] LABS: BILIRUBIN,URINE NEGATIVE (NEGATIVE); CLARITY,URINE CLEAR; COLOR,URINE YELLOW; GLUCOSE, URINE (UA) NEGATIVE (NEGATIVE); KETONES,URINE NEGATIVE (NEGATIVE); LEUKOCYTE ESTERASE ,URINE NEGATIVE (NEGATIVE); NITRITE,URINE NEGATIVE (NEGATIVE); PROTEIN,URINE 1+ (NEGATIVE)
[2019-09-30 16:20] LABS: AMPHETAMINE SCREEN, URINE NEGATIVE (NEGATIVE); BARBITURATE SCREEN URINE NEGATIVE (NEGATIVE); BENZODIAZEPINES SCREEN URINE NEGATIVE (NEGATIVE); CANNABINOID SCREEN, URINE NEGATIVE (NEGATIVE); COCAINE SCREEN URINE NEGATIVE (NEGATIVE); METHADONE STAT NEGATIVE (NEGATIVE); METHAMPHETAMINE SCREEN URINE S NEGATIVE (NEGATIVE); OPIATE SCREEN URINE NEGATIVE (NEGATIVE); OXYCODONE STAT NEGATIVE (NEGATIVE); PROPOXYPHENE STAT NEGATIVE (NEGATIVE); TRICYCLIC ANTIDEPRESSANTS SCRE NEGATIVE (NEGATIVE)
[2019-09-30 16:22] LABS: AMORPHOUS SEDIMENT,UR RARE AMOR URATES /LPF; BACTERIA,URINE TRACE /HPF; WBC,URINE RARE /HPF
--- NOTE | 2019-09-30 16:41 | NUR ---
Dr. Hong using language line to communicate test results with pt.
--- NOTE | 2019-09-30 16:44 | Diagnostic Imaging Report ---
EXAMINATION: Right hand radiographs, 3 views. COMPARISON: None. HISTORY: 74-year-old female, right hand pain. FINDINGS: There are limitations of the study relating to material external to the patient. This should be removed prior to imaging, if possible. There is no identified acute fracture. Bone mineralization and alignment are unremarkable. There is no identified cortical or aggressive bone destruction. The joint spaces are relatively well preserved. IMPRESSION: No identified acute bony abnormality of the right hand. Dictated by: Dictated on workstation # [id number]
--- NOTE | 2019-09-30 16:45 | Diagnostic Imaging Report ---
EXAMINATION: Right hip radiographs, 2 views. COMPARISON: None. HISTORY: 74-year-old female, right hip pain. FINDINGS: There are 3 lag screws in the right proximal femur traversing the intertrochanteric femur and femoral neck with the screw heads at the level of the femoral head. The fixation screws are intact without abnormal surrounding lucency. The right hip is not dislocated. There is no joint space loss of the right hip, osteophyte formation, or subchondral cystic change. There is no identified acute fracture. There are mild right sacroiliac degenerative changes. IMPRESSION: 1. Unremarkable appearance of the right hip joint. 2. Intact fixation screws in the right proximal femur without procedural-related complication. 3. Mild right sacroiliac degenerative changes. Dictated by: Dictated on workstation # [id number]
[2019-09-30] MEDS ORDERED: ACETAMINOPHEN 325 MG TABLET ONE (16:55)
[2019-09-30] MEDS ORDERED: MECLIZINE 25 MG (ANTIVERT) TAB ONE (16:56)
[2019-09-30 17:00] VITALS: BP 147/64
== END 2019-09-30 17:00 | disposition home or self-care (01) ==
LOC: EDUNIT# 13:49 → ER 13:50
DX: R42 Dizziness and giddiness (principal); I10 Essential (primary) hypertension; E78.00 Pure hypercholesterolemia, unspecified; R40.2411 Glasgow coma scale score 13-15, in the field [EMT or ambulance]; Z86.73 Personal history of transient ischemic attack (TIA), and cerebral infarction without residual deficits; W19.XXXA Unspecified fall, initial encounter
CPT/HCPCS: 51701; 70450; 71045; 72125; 73130; 73502; 80053; 80306; 81000; 83880; 84484; 85025; 86141; G0480; 36415; 80320; 93005

== ENCOUNTER 2019-10-18 17:06 | Emergency (ER) | payer MEDICARE ==
[~2019-10-18] VITALS: Ht 147.3 cm; Wt 57.2 kg
[2019-10-18 17:06] VITALS: BP 145/62
--- NOTE | 2019-10-18 17:23 | ED Fall/Injury ---
General Chief Complaint: Trauma-Non Activation Stated Complaint: R HIP PAIN AFTER FALL Nursing Triage Note: fall Source: patient, EMS Exam Limitations: no limitations History of Present Illness Time Seen by Provider: 17:20 Initial Comments To ER by EMS from home with reports of fall and subsequent right hip pain. She does not recall when she fell. She falls quite frequently. She has some bruising to the right calf and ankle and states that it's related to one of her falls. Her main complaint is of right hip pain. However, she has full range of motion of the hip she lives at home and there is some concern that she is not able to take care of herself adequately nor is she able to assist in the care of her demented . Occurred: just prior to arrival Severity: moderate Injuries/Pain Location: lower extremity Context: other Loss of Consciousness: unsure Associated Symptoms (Fall): Denies Symptoms Allergies and Home Medications Allergies Coded Allergies: No Known Drug Allergies (Verified , 04/29/15) Home Medications Fluticasone Propionate 16 Gm [place].susp, 0 SPRAY NS HS Prescribed by: CORBIN WINTER on 10/26/18 0834 Hydrocodone Bit/Acetaminophen 1 Tab Tab, 1-2 TAB PO Q6H PRN for PAIN-MODERATE Prescribed by: CORBIN WINTER on 10/26/18 0834 Meclizine HCl 25 Mg Tablet, 25 MG PO TID PRN for DIZZINESS, (Reported) Metoprolol Succinate 25 Mg Tab.er.24h, 25 MG PO DAILY Prescribed by: CORBIN WINTER on 10/26/18 0834 Rosuvastatin Calcium 10 Mg Tablet, 10 MG PO HS, (Reported) Patient Home Medication List Home Medication List Reviewed: Yes Review of Systems Review of Systems Constitutional: see HPI Eyes: No Symptoms Reported Ears, Nose, Mouth, Throat: no symptoms reported Respiratory: no symptoms reported Cardiovascular: no symptoms reported Genitourinary: no symptoms reported Musculoskeletal: see HPI Skin: no symptoms reported Psychiatric/Neurological: No Symptoms Reported Past Doqoyci-Zvpeqn-Ejoimj Hx Patient Social History Alcohol Use: Denies Use Recreational Drug Use: No Smoking Status: Never a Smoker 2nd Hand Smoke Exposure: No Recent Hopitalizations: No Immunizations Up To Date Tetanus Booster (TDap): More than 5yrs Seasonal Allergies Seasonal Allergies: No Past Medical History Surgeries: Yes (EGD/COLONOSCOPY 04/2015) Orthopedic Respiratory: No Cardiac: Yes High Cholesterol, Hypertension, Valvular Heart Disease Neurological: Yes (subarachnoid hemorrhage) Stroke, TIA, Vertigo [employer]IEF [employer]SHAL History: Menopausal Genitourinary: No Gastrointestinal: Yes (ALL NOTED ON EGD/COLONOSCOPY) Gastroesophageal Reflux, Diverticulosis, Hemorrhoids, Hiatal Hernia Musculoskeletal: Yes Osteoporosis, Fractures Endocrine: No HEENT: No Cancer: No Psychosocial: Yes Anxiety Integumentary: No Blood Disorders: No Family Medical History Patient reports no known family medical history. Diabetes father liver disease Physical Exam Vital Signs Vital Signs - First Documented 10/18/19 17:06 Temp 37.2 Pulse 86 Resp 20 B/P (MAP) 145/62 (89) Pulse Ox 99 O2 Delivery Room Air Capillary Refill : Height, Weight, BMI Height: 5'0.00" Weight: 118lbs. 1.0oz. 53.098834lk; 26.00 BMI Method:Stated General Appearance: WD/WN, no apparent distress HEENT: PERRL/EOMI, TMs normal, other (minor left periorbital ecchymosis. Left sided Naidu sign is present. There is some left neck ecchymosis without swelling as well. There is a midline posterior occipital scalp laceration that appears to be a couple of days old.) Neck: non-tender, full range of motion Respiratory: no respiratory distress, no accessory muscle use Gastrointestinal: normal bowel sounds, non tender Back: other (she has a right sided low back abrasion which is at least a week old and filled with eschar. No surrounding cellulitis. There is some yellowish purple ecchymosis. Lumbar spine and sacroiliac joint is nontender to palpation.) Extremities: other (there is swelling and ecchymosis to the right lower leg. Palpable dorsalis pedis pulse is equal bilaterally. Range of motion of the ankle does not cause her pain. Range of motion at the knee causes "a little" pain. Ra nge of motion at the hip causes mild pain as well.) Neurologic/Psychiatric: alert, normal mood/affect, oriented x 3, other (she knows that she is at the hospital and her primary care provider is Dr. SWEENEY. She is able to converse with us and answer questions. However, she does not recall the events of the fall.) Fermin Coma Score Best Eye Response: (4) Open Spontaneously Best Verbal Response: (5) Oriented Best Motor Response: (6) Obeys Commands [place] Total: 15 Progress/Results/Core Measures Results/Orders Lab Results Laboratory Tests Test 10/18/19 17:20 10/18/19 17:32 Range/Units White Blood Count 9.6 4.3-11.0 10^3/uL Red Blood Count 3.36 L 4.35-5.85 10^6/uL Hemoglobin 10.0 L 11.5-16.0 G/DL Hematocrit 31 L 35-52 % Mean Corpuscular Volume 92 80-99 FL Mean Corpuscular Hemoglobin 30 25-34 PG Mean Corpuscular Hemoglobin Concent 32 32-36 G/DL Red Cell Distribution Width 13.5 10.0-14.5 % Platelet Count 302 130-400 10^3/uL Mean Platelet Volume 10.8 H 7.4-10.4 FL Neutrophils (%) (Auto) 85 H 42-75 % Lymphocytes (%) (Auto) 8 L 12-44 % Monocytes (%) (Auto) 6 0-12 % Eosinophils (%) (Auto) 1 0-10 % Basophils (%) (Auto) 0 0-10 % Neutrophils # (Auto) 8.2 H 1.8-7.8 X 10^3 Lymphocytes # (Auto) 0.7 L 1.0-4.0 X 10^3 Monocytes # (Auto) 0.6 0.0-1.0 X 10^3 Eosinophils # (Auto) 0.1 0.0-0.3 10^3/uL Basophils # (Auto) 0.0 0.0-0.1 10^3/uL Neutrophils % (Manual) 84 % Lymphocytes % (Manual) 8 % Monocytes % (Manual) 7 % Eosinophils % (Manual) 1 % Basophils % (Manual) 0 % Band Neutrophils 0 % Polychromasia SLIGHT Anisocytosis SLIGHT Prothrombin Time 13.0 12.2-14.7 SEC INR Comment 0.9 0.8-1.4 Sodium Level 140 135-145 MMOL/L Potassium Level 4.2 3.6-5.0 MMOL/L Chloride Level 105 98-107 MMOL/L Carbon Dioxide Level 25 21-32 MMOL/L Anion Gap 10 5-14 MMOL/L Blood Urea Nitrogen 19 H 7-18 MG/DL Creatinine 0.81 0.60-1.30 MG/DL Estimat Glomerular Filtration Rate > 60 BUN/Creatinine Ratio 23 Glucose Level 161 H 70-105 MG/DL Calcium Level 8.8 8.5-10.1 MG/DL Corrected Calcium 9.2 8.5-10.1 MG/DL Magnesium Level 2.2 1.6-2.4 MG/DL Total Bilirubin 0.6 0.1-1.0 MG/DL Aspartate Amino Transf (AST/SGOT) 23 5-34 U/L Alanine Aminotransferase (ALT/SGPT) 26 0-55 U/L Alkaline Phosphatase 83 40-136 U/L Total Creatine Kinase 403 H 29-168 U/L Total Protein 6.7 6.4-8.2 GM/DL Albumin 3.5 3.2-4.5 GM/DL Urine Color YELLOW Urine Clarity CLEAR Urine pH 6.0 5-9 Urine Specific [place] 1.025 H 1.016-1.022 Urine Protein TRACE H NEGATIVE Urine Glucose (UA) NEGATIVE NEGATIVE Urine Ketones NEGATIVE NEGATIVE Urine Nitrite NEGATIVE NEGATIVE Urine Bilirubin NEGATIVE NEGATIVE Urine Urobilinogen 0.2 < = 1.0 MG/DL Urine Leukocyte Esterase NEGATIVE NEGATIVE Urine RBC (Auto) 1+ H NEGATIVE Urine RBC 0-2 /HPF Urine WBC 0-2 /HPF Urine Squamous Epithelial Cells NONE /HPF Urine Renal Epithelial Cells 0-2 /HPF Urine Crystals NONE /LPF Urine Bacteria TRACE /HPF Urine Casts PRESENT /LPF Urine Hyaline Casts 0-2 H /LPF Urine Mucus NEGATIVE /LPF Urine Culture Indicated NO My Orders Orders - SOSA CUMMINGS APRN Cbc With Automated Diff (10/18/19 17:17) Comprehensive Metabolic Panel (10/18/19 17:17) Creatine Kinase (10/18/19 17:17) Protime With Inr (10/18/19 17:17) Ct Head/Cervical Spine Wo (10/18/19 17:17) Ekg Tracing (10/18/19 17:17) Magnesium (10/18/19 17:17) Ua Culture If Indicated (10/18/19 17:17) Straight Cath (Urinary) (10/18/19 17:17) Pelvis With Right Hip 2-3views (10/18/19 17:17) Tibia/Fibula, Right, 2 Views (10/18/19 17:17) Manual Differential (10/18/19 17:20) Tramadol Tablet (Ultram Tablet) (10/18/19 19:15) Vital Signs/I&O 10/18/19 17:06 Temp 37.2 Pulse 86 Resp 20 B/P (MAP) 145/62 (89) Pulse Ox 99 O2 Delivery Room Air Departure Communication (Admissions) 1910-spoke with Dr. SWEENEY, she agrees to admit the patient if we have any admitting criteria, unfortunately we don't at this time and the patient refuses to be admitted or to be admitted to [facility]. Dr. Sweeney reports that she's had orders written for [facility] twice in the past 2 weeks and the patient initially agrees to go but then declines right before going. Again tonight, the patient says that she is going home and will not stay in the hospital. 1930-assisted the patient up to the bathroom. She is only partially weightbearin g with the right leg. She complains of pain to the right thigh anteriorly. She has difficulty flexing her leg while in the seated position. She is able to do so with the left leg but she cannot raise her right leg up to get into the wheelchair because of pain. Suspect muscle contusion, hip films are unremarkable. I did use the language line (speaks Mandarin) to discuss with her being admitted to the hospital or penitentiary. She adamantly refuses this 3 or 4 times when I bring it up during the conversation 3 or 4 times. She states that her takes care of her and she takes care of him. They have a family friend named Lance who helps take care of them. She states that she must go home and will not stay in the hospital even though she understands that I strongly recommend she stay in the hospital. Impression Primary Impression: Frequent falls Additional Impression: Right hip pain Disposition: HOME, SELF-CARE Condition: Stable Departure-Patient Inst. Decision time for Depature: 18:53 Referrals: NICANOR SWEENEY DO (PCP/Family) Primary Care Physician Patient Instructions: Getting Up From a Fall Copy Copies To 1: NICANOR SWEENEY PETER J APRN Oct 18, 2019 17:23
[2019-10-18 17:30] LABS: BASOPHILS % (AUTO) 0 % (0-10); EOSINOPHILS # (AUTO) 0.1 10^3/uL (0.0-0.3); EOSINOPHILS % (AUTO) 1 % (0-10); HEMATOCRIT 31 % (35-52); LYMPHOCYTES # (AUTO) 0.7 X 10^3 (1.0-4.0); LYMPHOCYTES % (AUTO) 8 % (12-44); MEAN CORPUSCULAR HEMOGLOBIN 30 PG (25-34); MEAN CORPUSCULAR HGB CONC 32 G/DL (32-36); MEAN CORPUSCULAR VOLUME 92 FL (80-99); MEAN PLATELET VOLUME 10.8 FL (7.4-10.4); MONOCYTES # (AUTO) 0.6 X 10^3 (0.0-1.0); MONOCYTES % (AUTO) 6 % (0-12); NEUTROPHILS # (AUTO) 8.2 X 10^3 (1.8-7.8); NEUTROPHILS % (AUTO) 85 % (42-75); PLATELET COUNT 302 10^3/uL (130-400); WHITE BLOOD COUNT 9.6 10^3/uL (4.3-11.0)
[2019-10-18 17:37] LABS: BILIRUBIN,URINE NEGATIVE (NEGATIVE); CLARITY,URINE CLEAR; COLOR,URINE YELLOW; GLUCOSE, URINE (UA) NEGATIVE (NEGATIVE); KETONES,URINE NEGATIVE (NEGATIVE); LEUKOCYTE ESTERASE ,URINE NEGATIVE (NEGATIVE); NITRITE,URINE NEGATIVE (NEGATIVE); PROTEIN,URINE TRACE (NEGATIVE)
[2019-10-18 17:40] LABS: ALBUMIN 3.5 GM/DL (3.2-4.5); INR 0.9 (0.8-1.4)
[2019-10-18 17:41] LABS: CHLORIDE 105 MMOL/L (98-107); POTASSIUM 4.2 MMOL/L (3.6-5.0); SODIUM 140 MMOL/L (135-145)
[2019-10-18 17:42] LABS: CALCIUM 8.8 MG/DL (8.5-10.1)
[2019-10-18 17:43] LABS: GLUCOSE 161 MG/DL (70-105); TOTAL PROTEIN 6.7 GM/DL (6.4-8.2)
[2019-10-18 17:44] LABS: CARBON DIOXIDE 25 MMOL/L (21-32)
[2019-10-18 17:45] LABS: BILIRUBIN,TOTAL 0.6 MG/DL (0.1-1.0)
[2019-10-18 17:46] LABS: ALKALINE PHOSPHATASE 83 U/L (40-136)
[2019-10-18 17:46] LABS: BACTERIA,URINE TRACE /HPF; HYALINE CASTS, URINE 0-2 /LPF; RBC,URINE 0-2 /HPF; RENAL EPITHELIAL CELLS,URINE 0-2 /HPF; WBC,URINE 0-2 /HPF
[2019-10-18 17:47] LABS: CREATININE SERUM 0.81 MG/DL (0.60-1.30); GFR ESTIMATED > 60
[2019-10-18 17:48] LABS: BUN/CREATININE RATIO 23
[2019-10-18 17:49] LABS: ALANINE AMINOTRANSFERASE 26 U/L (0-55)
[2019-10-18 17:50] LABS: MAGNESIUM 2.2 MG/DL (1.6-2.4)
[2019-10-18 17:51] LABS: CREATINE KINASE 403 U/L (29-168)
[2019-10-18 17:57] LABS: ANISOCYTOSIS SLIGHT; BAND NEUTROPHILS 0 %; BASOPHILS % (MANUAL) 0 %; EOSINOPHILS % (MANUAL) 1 %; LYMPHOCYTES % (MANUAL) 8 %; MONOCYTES % (MANUAL) 7 %; NEUTROPHILS % (MANUAL) 84 %; POLYCHROMASIA SLIGHT
--- NOTE | 2019-10-18 18:05 | Diagnostic Imaging Report ---
EXAMINATION: Right tibia and fibula at 05:48 p.m. INDICATION: Fell, leg pain. TECHNIQUE: AP and lateral views were obtained. COMPARISON: There are no prior studies available for comparison. FINDINGS: There is no fracture, dislocation, or acute bony abnormality evident. The knee and ankle joints are fairly well maintained. The soft tissues are unremarkable. IMPRESSION: There is no evidence for an acute bony abnormality. Dictated by: Dictated on workstation # [id number]
--- NOTE | 2019-10-18 18:07 | Diagnostic Imaging Report ---
EXAMINATION: Pelvis and right hip at 05:42 p.m. INDICATION: Fall. FINDINGS: Single AP view of the pelvis and AP and lateral views of the right hip were obtained. As noted on the prior exam of 03/01/2019, there are three orthopedic fixation screws securing a long-standing fracture of the right femoral neck. The orthopedic hardware seems to be in good position. There is no fracture or acute bony abnormality appreciated. There is mild degenerative disease of the hip and sacroiliac joints. The degenerative changes seem similar to the prior exam. There is moderate degenerative disease of the lower lumbar spine. This too is unchanged when compared to the previous study. The soft tissues are unremarkable. IMPRESSION: 1. There is no evidence for an acute bony abnormality. 2. If clinical concern regarding an occult injury persists and further imaging is desired, then MRI will be recommended. Dictated by: Dictated on workstation # [id number]
--- NOTE | 2019-10-18 18:19 | Diagnostic Imaging Report ---
PROCEDURE: CT head and CT cervical spine without contrast. TECHNIQUE: Multiple contiguous axial images were obtained through the brain and cervical spine without the use of intravenous contrast. Sagittal and coronal reformations through the cervical spine were then performed. Auto Exposure Controls were utilized during the CT exam to meet ALARA standards for radiation dose reduction. INDICATION: Fell, head and neck pain. CT head: There is no mass, shift of the midline or hemorrhage to suggest an acute intracranial abnormality. The ventricles are not abnormally dilated and stable in size when compared to the prior exam of 09/30/2019. The bone windows show no evidence for a skull fracture or for a destructive lesion. The prior exam did show scattered areas of scalp edema. On this study, there does appear to be generally greater edema of the scalp over both parietal bones. There also seems to be a small hematoma in the scalp along the posterior aspect of the left parietal lobe near the vertex of the skull. The orbits are symmetrical and within normal limits. The sinuses, where visualized, are clear. IMPRESSION: 1. There is no evidence for an acute intracranial abnormality; however, there does seem to be generalized edema of the scalp over the parietal bones and there is a small area of hematoma formation along the posterior aspect of the left parietal bone near the vertex of the skull. 2. If the patient is anticoagulated and if her symptoms of headache persist, then a short-term (24 hour) follow-up CT head exam should be obtained. CT of the cervical spine: The reconstructed parasagittal images show slight straightening of the cervical spine. This appearance is similar to the prior exam of 09/30/2019. The degenerative disc and bony disease noted on the prior study has not progressed. There is no fracture or acute bony abnormality evident. There is no sign of retropharyngeal edema. The calcified nodule in the right lobe of the thyroid seen previously is again evident. The lung apices are clear. IMPRESSION: There is no evidence for an acute bony abnormality of the cervical spine. Dictated by: Dictated on workstation # [id number]
== END 2019-10-18 19:55 | disposition home or self-care (01) ==
LOC: EDUNIT# 17:06 → ER 17:07
DX: M25.551 Pain in right hip (principal); R29.6 Repeated falls; I10 Essential (primary) hypertension; E78.00 Pure hypercholesterolemia, unspecified; R40.2142 Coma scale, eyes open, spontaneous, at arrival to emergency department; R40.2252 Coma scale, best verbal response, oriented, at arrival to emergency department; R40.2362 Coma scale, best motor response, obeys commands, at arrival to emergency department; Z86.73 Personal history of transient ischemic attack (TIA), and cerebral infarction without residual deficits; Z79.51 Long term (current) use of inhaled steroids; W19.XXXA Unspecified fall, initial encounter
CPT/HCPCS: 36415; 70450; 72125; 73590; 80053; 81000; 82550; 83735; 85007; 85027; 85610

== ENCOUNTER 2019-10-26 11:07 | Emergency (ER) | payer MEDICARE ==
[~2019-10-26] VITALS: Ht 149.8 cm; Wt 48.0 kg
[~2019-10-26 11:07] MED LIST changes: +ACET325T49 PO; +Lidocaine 4% Patch TOP; +METF-478 PO; +ONDA4TAB11 PO
--- NOTE | 2019-10-26 11:53 | ED General ---
General Chief Complaint: Trauma-Non Activation Stated Complaint: FALL - R LEG PAIN Source of Information: Patient, Intermediate Records History of Present Illness Date Seen by Provider: Oct 26, 2019 Time Seen by Provider: 11:47 Initial Comments This is a 74 yo female with a history of chronic falls who presented via correction bus after a same level fall. She is unsure of how she fell, but reports right hip pain at this time. She is noted to have a history of chronic right hip pain after multiple falls. Reports she had an unwitnessed fall that occurred approximately 0300 this am. She was found sitting on floor with walker in front of her. Throughout day she complained of right hip pain when ambulating. At this time she denies headache, chest pain, shortness of breath, abdominal or back pain, nausea/vomiting. Timing/Duration: Other (8 hours) Allergies and Home Medications Allergies Coded Allergies: No Known Drug Allergies (Verified , 04/29/15) Home Medications Acetaminophen 325 Mg Tablet, 650 MG PO Q6H PRN for PAIN-MILD (1-4) Prescribed by: NICANOR ESTRELLA on 10/24/19 1318 Meclizine HCl 25 Mg Tablet, 25 MG PO TID PRN for DIZZINESS, (Reported) Metformin HCl 500 Mg Tab.er.24, 500 MG PO DAILY Prescribed by: NICANOR ESTRELLA on 10/24/19 1505 Metoprolol Succinate 25 Mg Tab.er.24h, 25 MG PO DAILY, (Reported) FILLED 09-23-2019 #[address] ESTRELLA Ondansetron 4 Mg Tab.rapdis, 4 MG PO Q4H Prescribed by: NICANOR ESTRELLA on 10/24/19 1318 Rosuvastatin Calcium 10 Mg Tablet, 10 MG PO HS, (Reported) [Lidocaine 4% Patch] 1 EA PATCH, 2 EA TOP DAILY Prescribed by: NICANOR ESTRELLA on 10/24/19 1318 Patient Home Medication List Home Medication List Reviewed: Yes Review of Systems Review of Systems Constitutional: no symptoms reported EENTM: no symptoms reported Respiratory: no symptoms reported Cardiovascular: no symptoms reported Gastrointestinal: no symptoms reported Genitourinary: no symptoms reported Musculoskeletal: see HPI Skin: no symptoms reported Psychiatric/Neurological: No Symptoms Reported Hematologic/Lymphatic: No Symptoms Reported Immunological/Allergic: no symptoms reported Past Ghzfomp-Agpjqz-Zpqmro Hx Patient Social History 2nd Hand Smoke Exposure: No Recent Foreign Travel: No Contact w/Someone Who Travel: No Recent Hopitalizations: No Immunizations Up To Date Tetanus Booster (TDap): More than 5yrs Seasonal Allergies Seasonal Allergies: No Past Medical History Surgeries: Yes (EGD/COLONOSCOPY 04/2015) Orthopedic Respiratory: No Cardiac: Yes High Cholesterol, Hypertension, Valvular Heart Disease Neurological: Yes (subarachnoid hemorrhage) Stroke, TIA, Vertigo 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 Diabetes father liver disease Physical Exam Vital Signs Vital Signs - First Documented Capillary Refill : Height, Weight, BMI Height: 5'0.00" Weight: 118lbs. 1.0oz. 53.830666jk; 51.77 BMI Method:Stated General Appearance: No Apparent Distress, WD/WN HEENT: PERRL/EOMI, TMs Normal, Normal ENT Inspection, Pharynx Normal Neck: Full Range of Motion, Normal Inspection, Non Tender Respiratory: Chest Non Tender, Lungs Clear, Normal Breath Sounds, No Accessory Muscle Use, No Respiratory Distress Cardiovascular: Regular Rate, Rhythm, No Edema, No Murmur, Normal Peripheral Pulses Extremity: Normal Capillary Refill, Normal Inspection, Non Tender, No Pedal Edema, Pelvis Stable, Other (Full ROM of bilateral hips and shoulders) Neurologic/Psychiatric: Alert, Oriented x3, No Motor/Sensory Deficits, Normal Mood/Affect, Other (No focal or gross neurological deficits) Skin: Warm/Dry, Other (Generalized bruising on chest, lower extremities and arms from prior falls.) Progress/Results/Core Measures Suspected Sepsis SIRS Temperature: Pulse: Respiratory Rate: Laboratory Tests 10/26/19 11:40: White Blood Count 5.3 Blood Pressure / Mean: Laboratory Tests 10/26/19 11:40: Creatinine 0.78, Platelet Count 310, Total Bilirubin 0.3 Results/Orders Lab Results Laboratory Tests Test 10/26/19 11:40 10/26/19 12:10 Range/Units White Blood Count 5.3 4.3-11.0 10^3/uL Red Blood Count 3.49 L 4.35-5.85 10^6/uL Hemoglobin 10.4 L 11.5-16.0 G/DL Hematocrit 33 L 35-52 % Mean Corpuscular Volume 94 80-99 FL Mean Corpuscular Hemoglobin 30 25-34 PG Mean Corpuscular Hemoglobin Concent 32 32-36 G/DL Red Cell Distribution Width 14.9 H 10.0-14.5 % Platelet Count 310 130-400 10^3/uL Mean Platelet Volume 10.2 7.4-10.4 FL Neutrophils (%) (Auto) 78 H 42-75 % Lymphocytes (%) (Auto) 11 L 12-44 % Monocytes (%) (Auto) 10 0-12 % Eosinophils (%) (Auto) 0 0-10 % Basophils (%) (Auto) 0 0-10 % Neutrophils # (Auto) 4.1 1.8-7.8 X 10^3 Lymphocytes # (Auto) 0.6 L 1.0-4.0 X 10^3 Monocytes # (Auto) 0.5 0.0-1.0 X 10^3 Eosinophils # (Auto) 0.0 0.0-0.3 10^3/uL Basophils # (Auto) 0.0 0.0-0.1 10^3/uL Sodium Level 134 L 135-145 MMOL/L Potassium Level 4.1 3.6-5.0 MMOL/L Chloride Level 100 98-107 MMOL/L Carbon Dioxide Level 24 21-32 MMOL/L Anion Gap 10 5-14 MMOL/L Blood Urea Nitrogen 14 7-18 MG/DL Creatinine 0.78 0.60-1.30 MG/DL Estimat Glomerular Filtration Rate > 60 BUN/Creatinine Ratio 18 Glucose Level 114 H 70-105 MG/DL Calcium Level 8.7 8.5-10.1 MG/DL Corrected Calcium 8.9 8.5-10.1 MG/DL Total Bilirubin 0.3 0.1-1.0 MG/DL Aspartate Amino Transf (AST/SGOT) 40 H 5-34 U/L Alanine Aminotransferase (ALT/SGPT) 45 0-55 U/L Alkaline Phosphatase 96 40-136 U/L Total Protein 7.6 6.4-8.2 GM/DL Albumin 3.8 3.2-4.5 GM/DL Urine Color YELLOW Urine Clarity CLEAR Urine pH 6.0 5-9 Urine Specific [place] 1.015 L 1.016-1.022 Urine Protein 1+ H NEGATIVE Urine Glucose (UA) NEGATIVE NEGATIVE Urine Ketones NEGATIVE NEGATIVE Urine Nitrite NEGATIVE NEGATIVE Urine Bilirubin NEGATIVE NEGATIVE Urine Urobilinogen 0.2 < = 1.0 MG/DL Urine Leukocyte Esterase NEGATIVE NEGATIVE Urine RBC (Auto) 2+ H NEGATIVE Urine RBC 0-2 /HPF Urine WBC RARE /HPF Urine Crystals PRESENT H /LPF Urine Calcium Oxalate Crystals RARE H /LPF Urine Bacteria NEGATIVE /HPF Urine Casts NONE /LPF Urine Mucus NO /LPF Urine Culture Indicated NO My Orders Orders - DEJAN GAN COTTON WASHER Cbc With Automated Diff (10/26/19 11:57) Comprehensive Metabolic Panel (10/26/19 11:57) Ua Culture If Indicated (10/26/19 11:57) Ct Head/Cervical Spine Wo (10/26/19 12:05) Pelvis/Tony Hips 2 Views (10/26/19 12:05) Vital Signs/I&O 10/26/19 10/26/19 11:19 11:19 Temp 37.3 37.3 Pulse 103 103 Resp 24 26 B/P (MAP) 149/81 (103) 149/81 (103) Pulse Ox 98 98 O2 Delivery Room Air Room Air Capillary Refill : Progress Note : Progress Note Yuly George has a history of frequent falls, today she presents with an unwitnessed fall. Her only complaint at this time is right hip pain, which she has chronically complained of since prior falls. We'll obtain basic labs, CBC, CMP and UA. She was noted to be anemic at prior admission. Ordered. CT head, C- spine and bilateral hips and pelvis. Labs reviewed, and were unremarkable. Radiographs show no acute findings. Discharge back to nursing facility with close monitoring. Diagnostic Imaging Diagonstic Imaging: CT Plain Films/CT/US/NM/MRI: head Comments NAME: YULY GEORGE [facility] REC#: [id number] PT STATUS: REG ER : 1945 PHYSICIAN: DEJAN GAN COTTON WASHER ADMIT DATE: 10/26/19/ER Draft Date of Exam:10/26/19 CT HEAD/CERVICAL SPINE WO PROCEDURE: CT head and CT cervical spine without contrast. TECHNIQUE: Multiple contiguous axial images were obtained through the brain and cervical spine without the use of intravenous contrast. Sagittal and coronal reformations through the cervical spine were then performed. Auto Exposure Controls were utilized during the CT exam to meet ALARA standards for radiation dose reduction. INDICATION: Fall, head and neck injury, hip pain. COMPARISON: CT head 10/24/2019 CT HEAD: Stable age-related cerebral volume loss and chronic microvascular changes are again seen. There is no focus of acute ischemia or hemorrhage. There is no midline shift or mass effect. No extra-axial fluid collection is identified. There is no skull fracture. The paranasal sinuses and mastoids are clear. Persistent but decreased scalp swelling noted. IMPRESSION: No acute intracranial abnormalities. CT CERVICAL SPINE: Alignment is normal. There is no subluxation or fracture. Mild degenerative changes seen throughout the disc spaces and facet joints. Soft tissues are grossly unremarkable. IMPRESSION: 1. No traumatic malalignment or fracture. 2. Not mentioned above, calcified right thyroid nodule. Dictated on workstation # [id number] Dict: 10/26/19 1233 Trans: 10/26/19 1239 CV [id number] Interpreted by: MICHAEL SOMERS Electronically signed by: Reviewed: Reviewed by [place] Diagonstic Imaging: Xray Plain Films/CT/US/NM/MRI: hip Comments NAME: YULY GEORGE [facility] REC#: [id number] PT STATUS: REG ER : 1945 PHYSICIAN: DEJAN GAN APRN ADMIT DATE: 10/26/19/ER Draft Date of Exam:10/26/19 PELVIS/TONY HIPS 2 VIEWS INDICATION: Fall, hip pain. COMPARISON: 10/19/2019 FINDINGS: Single view of the pelvis, multiple views bilateral hips demonstrate no acute fracture or dislocation. There are 3 cannulated screws across the right femoral neck which appear to be well seated. The SI joints are symmetric. The symphysis is approximated. There is no osseous lesion. IMPRESSION: None acute fracture or dislocation. Dictated on workstation # [id number] Dict: 10/26/19 1238 Trans: 10/26/19 1240 CVB [id number] Interpreted by: MICHAEL SOMERS Electronically signed by: Reviewed: Reviewed by Me Departure Impression Primary Impression: Fall Disposition: 03 XFER SNF Condition: Stable/Unchanged Departure-Patient Inst. Decision time for Depature: 12:49 Referrals: NICANOR ESTRELLA DO (PCP/Family) Primary Care Physician Patient Instructions: Preventing Falls Add. Discharge Instructions: Plan: 1. Discharge back to nursing facility. HIGH fall risk, monitor closely to reduce falls. 2. May take Tylenol or Ibuprofen as needed for pain per package instructions. 3. Follow up with your primary care provider if your symptoms persist. 4. Return for any new or concerning symptoms. All discharge instructions reviewed with patient and/or family. Voiced understanding. DEJAN GAN COTTON WASHER Oct 26, 2019 11:53
[2019-10-26 12:04] LABS: BASOPHILS % (AUTO) 0 % (0-10); EOSINOPHILS % (AUTO) 0 % (0-10); HEMATOCRIT 33 % (35-52); HEMOGLOBIN 10.4 G/DL (11.5-16.0); LYMPHOCYTES # (AUTO) 0.6 X 10^3 (1.0-4.0); LYMPHOCYTES % (AUTO) 11 % (12-44); MEAN CORPUSCULAR HEMOGLOBIN 30 PG (25-34); MEAN CORPUSCULAR HGB CONC 32 G/DL (32-36); MEAN CORPUSCULAR VOLUME 94 FL (80-99); MEAN PLATELET VOLUME 10.2 FL (7.4-10.4); MONOCYTES # (AUTO) 0.5 X 10^3 (0.0-1.0); MONOCYTES % (AUTO) 10 % (0-12); NEUTROPHILS # (AUTO) 4.1 X 10^3 (1.8-7.8); NEUTROPHILS % (AUTO) 78 % (42-75); PLATELET COUNT 310 10^3/uL (130-400); WHITE BLOOD COUNT 5.3 10^3/uL (4.3-11.0)
[2019-10-26 12:14] LABS: ALBUMIN 3.8 GM/DL (3.2-4.5); CHLORIDE 100 MMOL/L (98-107); POTASSIUM 4.1 MMOL/L (3.6-5.0); SODIUM 134 MMOL/L (135-145)
[2019-10-26 12:15] LABS: CALCIUM 8.7 MG/DL (8.5-10.1)
[2019-10-26 12:16] LABS: GLUCOSE 114 MG/DL (70-105)
[2019-10-26 12:17] LABS: TOTAL PROTEIN 7.6 GM/DL (6.4-8.2)
[2019-10-26 12:18] LABS: BILIRUBIN,TOTAL 0.3 MG/DL (0.1-1.0); CARBON DIOXIDE 24 MMOL/L (21-32)
[2019-10-26 12:20] LABS: ALKALINE PHOSPHATASE 96 U/L (40-136); CREATININE SERUM 0.78 MG/DL (0.60-1.30); GFR ESTIMATED > 60
[2019-10-26 12:21] LABS: BUN/CREATININE RATIO 18
[2019-10-26 12:22] LABS: BILIRUBIN,URINE NEGATIVE (NEGATIVE); CLARITY,URINE CLEAR; COLOR,URINE YELLOW; GLUCOSE, URINE (UA) NEGATIVE (NEGATIVE); KETONES,URINE NEGATIVE (NEGATIVE); LEUKOCYTE ESTERASE ,URINE NEGATIVE (NEGATIVE); NITRITE,URINE NEGATIVE (NEGATIVE); PROTEIN,URINE 1+ (NEGATIVE)
[2019-10-26 12:23] LABS: ALANINE AMINOTRANSFERASE 45 U/L (0-55)
[2019-10-26 12:34] LABS: BACTERIA,URINE NEGATIVE /HPF; RBC,URINE 0-2 /HPF; WBC,URINE RARE /HPF
[2019-10-26 12:35] LABS: CALCIUM OXALATE CRYSTALS,UR RARE /LPF
--- NOTE | 2019-10-26 12:40 | Diagnostic Imaging Report ---
PROCEDURE: CT head and CT cervical spine without contrast. TECHNIQUE: Multiple contiguous axial images were obtained through the brain and cervical spine without the use of intravenous contrast. Sagittal and coronal reformations through the cervical spine were then performed. Auto Exposure Controls were utilized during the CT exam to meet ALARA standards for radiation dose reduction. INDICATION: Fall, head and neck injury, hip pain. COMPARISON: CT head 10/24/2019 CT HEAD: Stable age-related cerebral volume loss and chronic microvascular changes are again seen. There is no focus of acute ischemia or hemorrhage. There is no midline shift or mass effect. No extra-axial fluid collection is identified. There is no skull fracture. The paranasal sinuses and mastoids are clear. Persistent but decreased scalp swelling noted. IMPRESSION: No acute intracranial abnormalities. CT CERVICAL SPINE: Alignment is normal. There is no subluxation or fracture. Mild degenerative changes seen throughout the disc spaces and facet joints. Soft tissues are grossly unremarkable. IMPRESSION: 1. No traumatic malalignment or fracture. 2. Not mentioned above, calcified right thyroid nodule. Dictated by: Dictated on workstation # [id number]
--- NOTE | 2019-10-26 12:41 | Diagnostic Imaging Report ---
INDICATION: Fall, hip pain. COMPARISON: 10/19/2019 FINDINGS: Single view of the pelvis, multiple views bilateral hips demonstrate no acute fracture or dislocation. There are 3 cannulated screws across the right femoral neck which appear to be well seated. The SI joints are symmetric. The symphysis is approximated. There is no osseous lesion. IMPRESSION: None acute fracture or dislocation. Dictated by: Dictated on workstation # [id number]
--- NOTE | 2019-10-26 12:52 | NUR ---
Called and spoke with Elizabeth at [facility] regarding transportation back to senior living.
--- NOTE | 2019-10-26 13:03 | NUR ---
Pt sleeping in bed at this time. Will continue to monitor.
--- NOTE | 2019-10-26 13:03 | NUR ---
skilled nursing called back and reports no transportation for at least an hour.
--- NOTE | 2019-10-26 14:04 | NUR ---
Patient repositioned and given an extra pillow at this time.
[2019-10-26 14:19] VITALS: BP 140/80
== END 2019-10-26 14:19 ==
LOC: EDUNIT# 11:07 → ER 11:08
DX: S20.219A Contusion of unspecified front wall of thorax, initial encounter (principal); E78.00 Pure hypercholesterolemia, unspecified; I10 Essential (primary) hypertension; M25.551 Pain in right hip; M81.0 Age-related osteoporosis without current pathological fracture; W19.XXXA Unspecified fall, initial encounter
CPT/HCPCS: 36415; 70450; 72125; 73521; 80053; 81000; 85025

== ENCOUNTER 2019-11-15 15:32 | Emergency (ER) | payer MEDICARE ==
[~2019-11-15] VITALS: Ht 149.8 cm; Wt 47.6 kg
--- NOTE | 2019-11-15 15:42 | ED General ---
General Stated Complaint: FALL;RT ANKLE PAIN Source of Information: Patient Exam Limitations: No Limitations History of Present Illness Date Seen by Provider: Nov 15, 2019 Time Seen by Provider: 15:39 Initial Comments To ER from [facility] with reports of a fall yesterday and subsequent right hip and right ankle pain. Patient denies hitting her head, she does report that she fell but she denies any pain in the hip or ankle. She's not sure why she is here. Timing/Duration: 1-2 Days Severity: Moderate Associated Systoms: Denies Symptoms Allergies and Home Medications Allergies Coded Allergies: No Known Drug Allergies (Verified , 04/29/15) Home Medications Acetaminophen 325 Mg Tablet, 650 MG PO Q6H PRN for PAIN-MILD (1-4) Prescribed by: NICANOR ESTRELLA on 10/24/19 1318 Meclizine HCl 25 Mg Tablet, 25 MG PO TID PRN for DIZZINESS, (Reported) Metformin HCl 500 Mg Tab.er.24, 500 MG PO DAILY Prescribed by: NICANOR ESTRELLA on 10/24/19 1505 Metoprolol Succinate 25 Mg Tab.er.24h, 25 MG PO DAILY, (Reported) FILLED 09-23-2019 #[address] ESTRELLA Ondansetron 4 Mg Tab.rapdis, 4 MG PO Q4H Prescribed by: NICANOR ESTRELLA on 10/24/19 1318 Rosuvastatin Calcium 10 Mg Tablet, 10 MG PO HS, (Reported) [Lidocaine 4% Patch] 1 EA PATCH, 2 EA TOP DAILY Prescribed by: NICANOR ESTRELLA on 10/24/19 1318 Patient Home Medication List Home Medication List Reviewed: Yes Review of Systems Review of Systems Constitutional: see HPI EENTM: see HPI Respiratory: no symptoms reported Cardiovascular: no symptoms reported Genitourinary: no symptoms reported Musculoskeletal: no symptoms reported Skin: no symptoms reported Psychiatric/Neurological: No Symptoms Reported Hematologic/Lymphatic: No Symptoms Reported Immunological/Allergic: no symptoms reported Past Fvnlgto-Mfwvpc-Ygxozv Hx Patient Social History 2nd Hand Smoke Exposure: No Recent Hopitalizations: Yes Immunizations Up To Date Tetanus Booster (TDap): More than 5yrs Seasonal Allergies Seasonal Allergies: No Past Medical History Surgeries: Yes (EGD/COLONOSCOPY 04/2015) Orthopedic Respiratory: No Cardiac: Yes High Cholesterol, Hypertension, Valvular Heart Disease Neurological: Yes (subarachnoid hemorrhage) Stroke, TIA, Vertigo [employer] History: Menopausal Genitourinary: No Gastrointestinal: Yes (ALL NOTED ON EGD/COLONOSCOPY) Gastroesophageal Reflux, Diverticulosis, Hemorrhoids, Hiatal Hernia Musculoskeletal: Yes Osteoporosis, Fractures Endocrine: No HEENT: No Cancer: No Psychosocial: Yes Anxiety Integumentary: No Blood Disorders: No Family Medical History Patient reports no known family medical history. Diabetes father liver disease Physical Exam Vital Signs Capillary Refill : Height, Weight, BMI Height: 5'0.00" Weight: 118lbs. 1.0oz. 53.838063fl; 21.00 BMI Method:Stated General Appearance: No Apparent Distress, WD/WN Eyes: Bilateral Eye Normal Inspection, Bilateral Eye PERRL, Bilateral Eye EOMI Neck: Full Range of Motion, Normal Inspection Respiratory: Lungs Clear, Normal Breath Sounds, No Accessory Muscle Use, No Respiratory Distress Cardiovascular: Regular Rate, Rhythm, Normal Peripheral Pulses Gastrointestinal: Normal Bowel Sounds, Non Tender, Soft Extremity: Normal Capillary Refill, Normal Inspection, Other (I can perform full range of motion of the right hip without pain) Neurologic/Psychiatric: Alert, Oriented x3 Skin: Normal Color, Warm/Dry Progress/Results/Core Measures Suspected Sepsis SIRS Temperature: Pulse: Respiratory Rate: Blood Pressure / Mean: Results/Orders My Orders Orders - SOSA CUMMINGS APRN Pelvis With Right Hip 2-3views (11/15/19 15:34) Ankle, Right, 3 Views (11/15/19 15:34) Vital Signs/I&O Capillary Refill : Departure Impression Primary Impression: Fall Disposition: 01 HOME, SELF-CARE Condition: Stable Departure-Patient Inst. Decision time for Depature: 15:42 Referrals: NICANOR ESTRELLA DO (PCP/Family) Primary Care Physician Patient Instructions: Preventing Falls SOSA CUMMINGS APRN Nov 15, 2019 15:42
--- NOTE | 2019-11-15 15:51 | NUR ---
. Just received report from Hafsa at [facility] who stated pt had fall last night and today. Hafsa also stated pt had been diagnosed COVID+ oon 10/24 and was released from quarantine yesterday and tested negative.
--- NOTE | 2019-11-15 16:14 | Diagnostic Imaging Report ---
INDICATION: Fall, pain. FINDINGS: Medial, lateral and posterior malleoli are intact. The plafond and talar dome is smooth and intact. The base of the fifth metatarsal appeared intact. No focal swelling. IMPRESSION: No acute appearing abnormality identified at three-view right ankle. Dictated by: Dictated on workstation # [id number]
--- NOTE | 2019-11-15 16:34 | Diagnostic Imaging Report ---
CLINICAL INDICATION: Patient is status post fall last night in nursing facility. Patient has right hip and right ankle pain. EXAM: X-ray of the pelvis, AP view, and x-ray of the right hip, AP and crosstable lateral views. COMPARISON: X-ray of the pelvis and right hip dated 10/18/2019. FINDINGS: There is stable appearance of the right hip with prior healed fracture changes. There are three screws through the intertrochanteric region with chronically impacted right femoral neck noted. There is no interval fracture or dislocation seen. The left hip shows no acute fracture or dislocation. Pelvis and sacral bony structures show no acute fracture. There is mild sclerosis of the sacroiliac joints again seen. Lower lumbar spine degenerative spurs are noted. There is mild enthesopathy of the left greater trochanter seen. IMPRESSION: 1: Stable x-ray of the pelvis and hips with no acute fracture or dislocation. Dictated by: Dictated on workstation # [id number]
--- NOTE | 2019-11-15 16:47 | NUR ---
THIS RN NOTIFIED [facility] THAT PT WAS READY TO RETURN. ZEENAT Whatley/ [facility] REPORTED THAT THEY ARE AWARE ET WOULD BE BACK SHORTLY TO GET PT.
[2019-11-15 17:01] VITALS: BP 119/79
== END 2019-11-15 17:01 | disposition home or self-care (01) ==
LOC: EDUNIT# 15:32 → ER 15:33
DX: M25.571 Pain in right ankle and joints of right foot (principal); M25.551 Pain in right hip; I10 Essential (primary) hypertension; E78.00 Pure hypercholesterolemia, unspecified; Z86.73 Personal history of transient ischemic attack (TIA), and cerebral infarction without residual deficits; Z79.84 Long term (current) use of oral hypoglycemic drugs; W19.XXXA Unspecified fall, initial encounter
CPT/HCPCS: 73610

== ENCOUNTER 2019-12-31 15:56 | Emergency (ER) | payer MEDICARE ==
[~2019-12-31] VITALS: Ht 147 cm; Wt 54.4 kg
--- NOTE | 2019-12-31 16:05 | ED Fall/Injury ---
General Chief Complaint: Trauma-Non Activation Stated Complaint: FALL Source: patient Exam Limitations: no limitations History of Present Illness Date Seen by Provider: Dec 31, 2019 Time Seen by Provider: 16:04 Initial Comments To ER with reports of a fall at [facility] with a small hematoma to the back of the head. She has no complaints but it is their policy is to have her examined. Occurred: just prior to arrival Severity: moderate Injuries/Pain Location: head Associated Symptoms (Fall): Denies Symptoms Allergies and Home Medications Allergies Coded Allergies: No Known Drug Allergies (Verified , 04/29/15) Home Medications Acetaminophen 325 Mg Tablet, 650 MG PO Q6H PRN for PAIN-MILD (1-4) Prescribed by: NICANOR ESTRELLA on 10/24/19 1318 Meclizine HCl 25 Mg Tablet, 25 MG PO TID PRN for DIZZINESS, (Reported) Metformin HCl 500 Mg Tab.er.24, 500 MG PO DAILY Prescribed by: NICANOR ESTRELLA on 10/24/19 1505 Metoprolol Succinate 25 Mg Tab.er.24h, 25 MG PO DAILY, (Reported) FILLED 09-23-2019 #[address] ESTRELLA Ondansetron 4 Mg Tab.rapdis, 4 MG PO Q4H Prescribed by: NICANOR ESTRELLA on 10/24/19 1318 Rosuvastatin Calcium 10 Mg Tablet, 10 MG PO HS, (Reported) [Lidocaine 4% Patch] 1 EA PATCH, 2 EA TOP DAILY Prescribed by: NICANOR ESTRELLA on 10/24/19 1318 Patient Home Medication List Home Medication List Reviewed: Yes Review of Systems Review of Systems Constitutional: see HPI Eyes: No Symptoms Reported Ears, Nose, Mouth, Throat: no symptoms reported Respiratory: no symptoms reported Genitourinary: no symptoms reported Musculoskeletal: no symptoms reported Skin: no symptoms reported Psychiatric/Neurological: See HPI Past Hnsjqep-Mjikry-Abattf Hx Patient Social History Alcohol Use: Denies Use Recreational Drug Use: No Smoking Status: Never a Smoker 2nd Hand Smoke Exposure: No Recent Hopitalizations: Yes Immunizations Up To Date Tetanus Booster (TDap): More than 5yrs Seasonal Allergies Seasonal Allergies: No Past Medical History Surgeries: Yes (EGD/COLONOSCOPY 04/2015) Orthopedic Respiratory: No Cardiac: Yes High Cholesterol, Hypertension, Valvular Heart Disease Neurological: Yes (subarachnoid hemorrhage) Stroke, TIA, Vertigo 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 Diabetes father liver disease Physical Exam Vital Signs Vital Signs - First Documented 12/31/19 16:04 Temp 36.4 Pulse 94 Resp 16 B/P (MAP) 136/88 (104) Pulse Ox 97 Capillary Refill : Height, Weight, BMI Height: 5'0.00" Weight: 118lbs. 1.0oz. 53.167983fi; 21.00 BMI Method:Stated General Appearance: WD/WN, no apparent distress HEENT: PERRL/EOMI, normal ENT inspection, TMs normal, pharynx normal, other (No portillo sign no hemotympanum small occipital dime sized hematoma) Neck: non-tender, full range of motion Respiratory: no respiratory distress, no accessory muscle use Gastrointestinal: normal bowel sounds, non tender, soft (Brain freeze) Extremities: normal range of motion, non-tender Neurologic/Psychiatric: alert, normal mood/affect Skin: normal color, warm/dry Fermin Coma Score Best Eye Response: (4) Open Spontaneously Best Verbal Response: (5) Oriented Best Motor Response: (6) Obeys Commands Fermin Total: 15 Progress/Results/Core Measures Results/Orders My Orders Orders - SOSA CUMMINGS APRN Ct Head/Cervical Spine Wo (12/31/19 16:03) Pelvis (12/31/19 16:03) Vital Signs/I&O 12/31/19 16:04 Temp 36.4 Pulse 94 Resp 16 B/P (MAP) 136/88 (104) Pulse Ox 97 Departure Impression Primary Impression: Fall Qualified Codes: W19.XXXA - Unspecified fall, initial encounter Disposition: 01 HOME, SELF-CARE Condition: Stable Departure-Patient Inst. Decision time for Depature: 16:40 Referrals: NICANOR ESTRELLA DO (PCP/Family) Primary Care Physician Patient Instructions: Preventing Falls Add. Discharge Instructions: All discharge instructions reviewed with patient and/or family. Voiced understanding. SOSA CUMMINGS APRN Dec 31, 2019 16:05
--- NOTE | 2019-12-31 16:29 | Diagnostic Imaging Report ---
PROCEDURE: CT head and CT cervical spine without contrast. TECHNIQUE: Multiple contiguous axial images were obtained through the brain and cervical spine without the use of intravenous contrast. Sagittal and coronal reformations through the cervical spine were then performed. Auto Exposure Controls were utilized during the CT exam to meet ALARA standards for radiation dose reduction. INDICATION: Head and neck pain after a fall. COMPARISON: Comparison made with prior examination from 10/26/2019. FINDINGS: There is prominence of the ventricles and sulci. There is mild chronic microvascular ischemic disease. There is no hydrocephalus. There is no midline shift. There is no mass, hemorrhage, or extra-axial fluid collection. The calvarium is intact. There is straightening of the normal cervical lordosis. The vertebral body heights are well maintained. There is no fracture or traumatic subluxation. The odontoid is intact and the lateral masses are well aligned. Prevertebral soft tissues are within normal limits. Lung apices are clear. IMPRESSION: 1. Atrophy and mild chronic microvascular ischemic disease, however no acute intracranial abnormality. 2. Mild cervical spondylosis and degenerative disc disease without acute fracture or traumatic subluxation. Dictated by: Dictated on workstation # [id number]
--- NOTE | 2019-12-31 16:40 | Diagnostic Imaging Report ---
INDICATION: Fall. Pelvic pain. COMPARISON: None. FINDINGS: A single AP view of the pelvis was performed. There is no radiographic evidence of acute fracture or dislocation. Pubic symphysis is within normal limits. SI joints are symmetric. Postsurgical changes of the proximal right femur are identified. Three partially threaded screws are seen traversing the right femoral head and neck. Otherwise, the proximal femurs are intact, bilaterally. The femoro-acetabular joint spaces appear maintained on this single frontal view. Remainder of the bony pelvis is intact as well. No unexpected radiopaque foreign bodies are seen. Included small bowel loops are nondistended. IMPRESSION: 1. No radiographic evidence of acute fracture or dislocation of the bony pelvis. Dictated by: Dictated on workstation # [id number]
--- NOTE | 2019-12-31 16:40 | NUR ---
PT ASSISTED TO RR VIA WC AT THIS TIME.
--- NOTE | 2019-12-31 16:50 | NUR ---
[facility] [place] CONTACTED FOR PT TRANSPORT HOME.
[2019-12-31 17:39] VITALS: BP 124/74
== END 2019-12-31 17:39 | disposition home or self-care (01) ==
LOC: EDUNIT# 15:56 → ER 15:57
DX: S00.93XA Contusion of unspecified part of head, initial encounter (principal); E78.00 Pure hypercholesterolemia, unspecified; I10 Essential (primary) hypertension; R40.2410 Glasgow coma scale score 13-15, unspecified time; Z83.3 Family history of diabetes mellitus; Z86.73 Personal history of transient ischemic attack (TIA), and cerebral infarction without residual deficits; W19.XXXA Unspecified fall, initial encounter
CPT/HCPCS: 70450; 72125; 72170

== ENCOUNTER 2020-03-17 21:22 | Emergency (ER) | payer MEDICARE ==
[2020-03-17 21:27] VITALS: BP 147/68
--- NOTE | 2020-03-17 21:43 | ED Fall/Injury ---
General Chief Complaint: Trauma-Non Activation Stated Complaint: FALL Nursing Triage Note: TO ED [facility]IA [facility] WITH REPORT OF SLIDING OUT OF W/C AT 1900 THIS EVENING. STAFF CALLED EMS AFTER PT DEVELOPED RIGHT EYE SWELLING. 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 Source: patient, EMS Exam Limitations: language barrier (TADANDIE JERRI DIETZ) History of Present Illness Date Seen by Provider: Mar 17, 2020 Time Seen by Provider: 21:30 Initial Comments Pt here by EMS for a fall that occurred around 1900 per EMS the patient was leaning forward in her wheelchair and fell face first into the ground. 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 The patient does not speak much [place], but is able to answer some yes and no questions. She reports pain in her right cheek at head area, but denies pain elsewhere. She is a poor historian due to language barrier. She has been seen in the past for multiple falls with a history of an intracranial bleed in 2018. She is currently alert at awake with a GCS of 15. She has edema of right sided infraorbital/cheek area. Unable to obtain full ROS due to language barrier, but she did deny chest pain, abdominal pain, extremity pain. Occurred: this evening Severity: moderate Injuries/Pain Location: head, face Context: unknown, lost balance Associated Symptoms (Fall): No Chest Pain; Headache, Neck Pain (ANDIE MISHRA) Allergies and Home Medications Allergies Coded Allergies: No Known Drug Allergies (Verified , 04/29/15) Home Medications Acetaminophen 325 Mg Tablet, 650 MG PO Q6H PRN for PAIN-MILD (1-4) Prescribed by: NICANOR ESTRELLA on 10/24/19 1318 Meclizine HCl 25 Mg Tablet, 25 MG PO TID PRN for DIZZINESS, (Reported) Metformin HCl 500 Mg Tab.er.24, 500 MG PO DAILY Prescribed by: NICANOR ESTRELLA on 10/24/19 1505 Metoprolol Succinate 25 Mg Tab.er.24h, 25 MG PO DAILY, (Reported) FILLED 09-23-2019 #[address] ESTRELLA Ondansetron 4 Mg Tab.rapdis, 4 MG PO Q4H Prescribed by: NICANOR ESTRELLA on 10/24/19 1318 Rosuvastatin Calcium 10 Mg Tablet, 10 MG PO HS, (Reported) [Lidocaine 4% Patch] 1 EA PATCH, 2 EA TOP DAILY Prescribed by: NICANOR May SAMEER on 10/24/198 Patient Home Medication List Home Medication List Reviewed: Yes (YUMI MCCABE MD) Review of Systems Review of Systems Constitutional: see HPI Eyes: See HPI Ears, Nose, Mouth, Throat: see HPI Respiratory: see HPI Gastrointestinal: see HPI Genitourinary: see HPI Musculoskeletal: see HPI Skin: see HPI Psychiatric/Neurological: See HPI (ANDIE MISHRA) Constitutional: No fever, No weakness Ears, Nose, Mouth, Throat: denies nose pain, denies epistaxis, denies mouth pain Respiratory: No cough, No short of breath Cardiovascular: No chest pain, No edema Gastrointestinal: No abdominal pain, No vomiting Musculoskeletal: No back pain; muscle pain Skin: change in color, lumps (YUMI MCCABE MD) Past Bhjbokj-Oxowdn-Eanxsq Hx Past Med/Social Hx: Reviewed Nursing Past Med/Soc Hx (YUMI MCCABE MD) Patient Social History Alcohol Use: Denies Use 2nd Hand Smoke Exposure: No Recent Hopitalizations: Yes (ANDIE MISHRA) Immunizations Up To Date Tetanus Booster (TDap): More than 5yrs (ANDIE MISHRA) Seasonal Allergies Seasonal Allergies: No (ANDIE MISHRA) Past Medical History Surgeries: Yes (EGD/COLONOSCOPY 04/2015) Orthopedic Respiratory: No Cardiac: Yes High Cholesterol, Hypertension, Valvular Heart Disease Neurological: Yes (subarachnoid hemorrhage) Stroke, TIA, Vertigo 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 Diabetes father liver disease (ANDIE MISHRA) Physical Exam Vital Signs Vital Signs - First Documented (YUMI MCCABE MD) Vital Signs Capillary Refill : Less Than 3 Seconds (ANDIE MISHRA) Height, Weight, BMI Height: 5'0.00" Weight: 118lbs. 1.0oz. 53.802487np; 25.00 BMI Method:Stated General Appearance: WD/WN, no apparent distress HEENT: PERRL/EOMI, normal ENT inspection, TMs normal, pharynx normal Neck: supple, normal inspection Cardiovascular: normal peripheral pulses, regular rate, rhythm Respiratory: chest non-tender, lungs clear, normal breath sounds Gastrointestinal: non tender, soft Back: normal inspection, no CVA tenderness, no vertebral tenderness Extremities: non-tender, normal inspection, no pedal edema, no calf tenderness Neurologic/Psychiatric: no motor/sensory deficits, alert, normal mood/affect, oriented x 3 Skin: normal color, warm/dry, cool (distal lower extremities) (ANDIE MISHRA) General Appearance: WD/WN, no apparent distress HEENT: PERRL/EOMI, TMs normal Neck: non-tender, full range of motion, supple Cardiovascular: regular rate, rhythm, no murmur Respiratory: lungs clear, normal breath sounds Gastrointestinal: non tender, soft Back: normal inspection, no CVA tenderness, no vertebral tenderness Extremities: non-tender, normal inspection, no pedal edema, no calf tenderness, pelvis stable Neurologic/Psychiatric: no motor/sensory deficits, alert, normal mood/affect Skin: warm/dry, ecchymosis (Right cheek and upper and lower lobes with mild ecchymosis and swelling) (YUMI MCCABE MD) [place] Coma Score Best Eye Response: (4) Open Spontaneously Best Verbal Response: (5) Oriented Best Motor Response: (6) Obeys Commands (YUMI MCCABE MD) Progress/Results/Core Measures Results/Orders My Orders Orders - YUMI MCCABE MD Ct Head/Face/Cervical Wo (03/17/20 21:31) (YUMI MCCABE MD) Vital Signs/I&O 03/17/20 03/17/20 21:27 21:27 Temp 35.2 35.2 Pulse 84 84 Resp 18 18 B/P (MAP) 147/68 (94) 147/68 (94) O2 Delivery Room Air Room Air (YUMI MCCABE MD) Blood Pressure Mean: 94 Progress Progress Note : Progress Note 2129: Pt arrived via EMS with significant right infra orbital swelling, language barrier made obtaining an history and ROS difficult, will obtain CT of head/neck/face, continue to monitor. (ANDIE MISHRA) Progress Note : Progress Note I have seen and evaluated the patient and agree with above except as indicated. I have directed the plan of care. Patient is here after fall from wheelchair at intermediate approximately 2 hours prior to arrival. No significant abnormalities noted at the time but patient did start having some swelling of the right side of the face at the cheek. Does have history of intracranial bleed previously. Sent here for further evaluation. Does have limited language but is following commands and reports pain in the appropriate areas and denies pain otherwise. We will get CT of the head, face and neck given her fall and history. Monitor patient. 2214: CT shows no acute findings and areas evaluated. Patient otherwise doing okay. Ice pack was given on arrival and she had ice pack from long-term care facility that she was using prior to that. No indication for admission or further monitoring. Discharged home with return precautions. Discharge instructions given to intermediate via nursing report. (YUMI MCCABE MD) Diagnostic Imaging Diagonstic Imaging: CT Plain Films/CT/US/NM/MRI: facial bones, c-spine, head Comments NAME: DARRICK GEORGE [facility] REC#: [id number] PT STATUS: REG ER : 1945 PHYSICIAN: YUMI MCCABE MD ADMIT DATE: 03/17/20/ER Draft Date of Exam:03/17/20 CT HEAD/FACE/CERVICAL WO PROCEDURE: CT head, face, and cervical spine without contrast, 03/17/2020. TECHNIQUE: Multiple contiguous axial images were obtained through the head, neck, and facial bones without the use of intravenous contrast. Sagittal and coronal reformations through the cervical spine and facial bones were also performed. Auto Exposure Controls were utilized during the CT exam to meet ALARA standards for radiation dose reduction. INDICATION: Status post fall, hematoma to the eye region. FINDINGS: BRAIN: Chronic ischemic disease is seen in a periventricular distribution and within the left frontoparietal region consistent with old infarct. No acute hemorrhage or infarct appreciated. There is no mass, mass effect or midline shift. There is no hydrocephalus. The calvarium appears intact. IMPRESSION: 1. Chronic findings with no acute intracranial process. CT MAXILLOFACIAL: There are no displaced fractures. There is soft tissue swelling overlying the right maxillary sinus and right orbit. The globe itself is intact. Post septal space is unremarkable. IMPRESSION 1. Soft tissue abnormality overlying the right globe and facial region with no underlying fracture appreciated. CT CERVICAL SPINE: There is normal alignment of the vertebral bodies, minimal loss of height at C2-C3, stable since previous CT from 12/31/2019 with no acute compression deformities appreciated. No displaced fracture is visualized. Multilevel degenerative disease similar to previous imaging. The lung apices appear clear. IMPRESSION: 1. Chronic changes throughout the cervical spine with no acute process appreciated. Dictated on workstation # [id number] Dict: 03/17/202149 Trans: 03/17/202206 [facility] [id number] Interpreted by: NABIL GRAHAM MD Electronically signed by: (YUMI MCCABE MD) Departure Impression Primary Impression: Contusion of face Qualified Codes: S00.83XA - Contusion of other part of head, initial encounter Additional Impression: Minor head injury Qualified Codes: S09.90XA - Unspecified injury of head, initial encounter Disposition: 01 HOME, SELF-CARE Condition: Stable Departure-Patient Inst. Decision time for Depature: 22:17 (YUMI MCCABE MD) Referrals: NICANOR ESTRELLA DO (PCP/Family) Primary Care Physician Patient Instructions: Minor Head Injury (DC), Black Eye, Contusion (DC) Add. Discharge Instructions: All discharge instructions reviewed with patient and/or family. Voiced understanding. You may use ice packs to area of concern 20 minutes/h as needed to reduce swelling and pain. You may give Tylenol/acetaminophen per standard orders at intermediate. Follow-up with your doctor in a few days to recheck as needed. Return for worse pain, swelling, weakness, vision or balance problems or other concerns as needed. Protect from falls. Copy Copies To 1: NICANOR ESTRELLA DO TAD,[facility] Mar 17, 2020 21:43 YUMI MCCABE MD Mar 17, 2020 22:18
[2020-03-17] MEDS ORDERED: FAMOTIDINE 20MG/2ML IV (PEPCID) IV STA (21:53)
[2020-03-17] MEDS ORDERED: PANTOPRAZOLE 40 MG (PROTONIX) VIAL IV ONE (22:00)
--- NOTE | 2020-03-17 22:08 | Diagnostic Imaging Report ---
PROCEDURE: CT head, face, and cervical spine without contrast, 03/17/2020. TECHNIQUE: Multiple contiguous axial images were obtained through the head, neck, and facial bones without the use of intravenous contrast. Sagittal and coronal reformations through the cervical spine and facial bones were also performed. Auto Exposure Controls were utilized during the CT exam to meet ALARA standards for radiation dose reduction. INDICATION: Status post fall, hematoma to the eye region. FINDINGS: BRAIN: Chronic ischemic disease is seen in a periventricular distribution and within the left frontoparietal region consistent with old infarct. No acute hemorrhage or infarct appreciated. There is no mass, mass effect or midline shift. There is no hydrocephalus. The calvarium appears intact. IMPRESSION: 1. Chronic findings with no acute intracranial process. CT MAXILLOFACIAL: There are no displaced fractures. There is soft tissue swelling overlying the right maxillary sinus and right orbit. The globe itself is intact. Post septal space is unremarkable. IMPRESSION 1. Soft tissue abnormality overlying the right globe and facial region with no underlying fracture appreciated. CT CERVICAL SPINE: There is normal alignment of the vertebral bodies, minimal loss of height at C2-C3, stable since previous CT from 12/31/2019 with no acute compression deformities appreciated. No displaced fracture is visualized. Multilevel degenerative disease similar to previous imaging. The lung apices appear clear. IMPRESSION: 1. Chronic changes throughout the cervical spine with no acute process appreciated. Dictated by: Dictated on workstation # [id number]
--- NOTE | 2020-03-17 22:21 | NUR ---
ZEENAT AT [facility] NOTIFIED OF CT RESULTS, DC INSTRUCTIONS, AND PT READY TO BE TRANSFERED BACK TO FACILITY. FACILITY TO TRANSPORT.
== END 2020-03-17 22:50 | disposition home or self-care (01) ==
LOC: EDUNIT# 21:22 → ER 21:24
DX: S00.83XA Contusion of other part of head, initial encounter (principal); S09.90XA Unspecified injury of head, initial encounter; E78.00 Pure hypercholesterolemia, unspecified; I10 Essential (primary) hypertension; E11.9 Type 2 diabetes mellitus without complications; Z86.73 Personal history of transient ischemic attack (TIA), and cerebral infarction without residual deficits; Z83.3 Family history of diabetes mellitus; Z79.84 Long term (current) use of oral hypoglycemic drugs; W05.0XXA Fall from non-moving wheelchair, initial encounter
CPT/HCPCS: 70450; 70486; 72125

== ENCOUNTER → 2020-08-11 | Outpatient (CLI) | payer MEDICARE ==
[2020-08-11 15:40] LABS: BILIRUBIN,URINE NEGATIVE (NEGATIVE); CLARITY,URINE CLEAR; COLOR,URINE YELLOW; GLUCOSE, URINE (UA) NEGATIVE (NEGATIVE); KETONES,URINE NEGATIVE (NEGATIVE); LEUKOCYTE ESTERASE ,URINE NEGATIVE (NEGATIVE); NITRITE,URINE NEGATIVE (NEGATIVE); PROTEIN,URINE NEGATIVE (NEGATIVE); RBC,URINE 0-2 /HPF
[2020-08-11 15:41] LABS: BACTERIA,URINE NEGATIVE /HPF; SQUAMOUS EPITHELIAL CELL,UR 0-2 /HPF
== END ==
LOC: LAB FS 14:59
PROVIDERS: ATTEND Family Medicine
DX: Z01.89 Encounter for other specified special examinations (principal)
CPT/HCPCS: 81000

== ENCOUNTER 2020-11-03 16:47 | Emergency (ER) | payer MEDICARE ==
--- NOTE | 2020-11-03 17:12 | ED General ---
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 EMS arrived, vitals were normal, blood sugar 140. Patient is reportedly at her baseline which is she knows her name, can answer most yes or no questions, but would not hold a conversation with you. She follows some commands. Reportedly she has not had any new trauma. Further elements of the history and physical including social history are unable to be obtained as the patient has a traumatic brain injury and is unable to tell me. Allergies and Home Medications Allergies Coded Allergies: No Known Drug Allergies (Verified , 04/29/15) Patient Home Medication List Home Medication List Reviewed: Yes Acetaminophen (Acetaminophen) 325 Mg Tablet, 650 MG PO Q6H PRN for PAIN-MILD (1- 4) Prescribed by: NICANOR ESTRELLA on 10/24/19 1318 Meclizine HCl (Meclizine HCl) 25 Mg Tablet, 25 MG PO TID PRN for DIZZINESS, (Reported) Entered as Reported by: PHILLIP COTTER on 10/17/18 0915 Metformin HCl (Metformin HCl ER) 500 Mg Tab.er.24, 500 MG PO DAILY Prescribed by: NICANOR ESTRELLA on 10/24/19 1505 Metoprolol Succinate (Metoprolol Succinate) 25 Mg Tab.er.24h, 25 MG PO DAILY, (Reported) Entered as Reported by: RASHID ODEN on 10/22/19 1319 Ondansetron (Ondansetron Odt) 4 Mg Tab.rapdis, 4 MG PO Q4H Prescribed by: NICANOR ESTRELLA on 10/24/19 1318 Rosuvastatin Calcium (Crestor) 10 Mg Tablet, 10 MG PO HS, (Reported) Entered as Reported by: PHILLIP OCTTER on 10/17/18 0915 [Lidocaine 4% Patch] 1 EA PATCH, 2 EA TOP DAILY Prescribed by: NICANOR ESTRELLA on 10/24/19 2288 Review of Systems Review of Systems Constitutional: No fever Review of systems unable to be obtained as the patient has a traumatic brain injury and does not communicate well All Other Systems Reviewed Negative Unless Noted: Yes Past Ltsqzuy-Wwkddj-Mhhctf Hx Immunizations Up To Date Tetanus Booster (TDap): More than 5yrs Seasonal Allergies Seasonal Allergies: No Past Medical History Surgeries: Yes (EGD/COLONOSCOPY 04/2015) Orthopedic Respiratory: No Cardiac: Yes High Cholesterol, Hypertension, Valvular Heart Disease Neurological: Yes (subarachnoid hemorrhage) Stroke, TIA, Vertigo 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 Diabetes father liver disease Physical Exam Vital Signs Vital Signs - First Documented 11/03/20 16:52 Temp 37.4 Pulse 109 Resp 24 B/P (MAP) 120/69 (86) Pulse Ox 95 O2 Delivery Room Air Capillary Refill : Height, Weight, BMI Height: 5'0.00" Weight: 118lbs. 1.0oz. 53.158010lm; 25.00 BMI Method:Stated General Appearance: No Apparent Distress, WD/WN HEENT: PERRL/EOMI, Normal ENT Inspection, Pharynx Normal Neck: Full Range of Motion, Normal Inspection, Non Tender, Supple Respiratory: Chest Non Tender, Lungs Clear, Normal Breath Sounds, No Accessory Muscle Use, No Respiratory Distress Cardiovascular: Regular Rate, Rhythm, No Edema, Normal Peripheral Pulses Gastrointestinal: Normal Bowel Sounds, Non Tender, Soft; No Distended, No Guarding Back: Normal Inspection, No CVA Tenderness, No Vertebral Tenderness Extremity: Normal Capillary Refill, Normal Inspection, Normal Range of Motion, Non Tender, No Calf Tenderness, No Pedal Edema Neurologic/Psychiatric: Alert, Other (5/5 strength left extremities, has pronator drift on the right upper extremity, patient not ambulatory, patient unable to tell me if sensation is normal) Skin: Normal Color, Warm/Dry Lymphatic: No Adenopathy Progress/Results/Core Measures Suspected Sepsis SIRS Temperature: Pulse: Respiratory Rate: Laboratory Tests 11/03/20 17:00: White Blood Count 12.7H Blood Pressure / Mean: Laboratory Tests 11/03/20 17:00: Creatinine 0.60, Platelet Count 180, Total Bilirubin 0.5 Results/Orders Lab Results Laboratory Tests Test 11/03/20 17:00 Range/Units White Blood Count 12.7 H 4.3-11.0 10^3/uL Red Blood Count 4.79 3.80-5.11 10^6/uL Hemoglobin 14.3 11.5-16.0 g/dL Hematocrit 43 35-52 % Mean Corpuscular Volume 90 80-99 fL Mean Corpuscular Hemoglobin 30 25-34 pg Mean Corpuscular Hemoglobin Concent 33 32-36 g/dL Red Cell Distribution Width 12.8 10.0-14.5 % Platelet Count 180 130-400 10^3/uL Mean Platelet Volume 11.2 9.0-12.2 fL Immature Granulocyte % (Auto) 1 % Neutrophils (%) (Auto) 93 H 42-75 % Lymphocytes (%) (Auto) 4 L 12-44 % Monocytes (%) (Auto) 2 0-12 % Eosinophils (%) (Auto) 0 0-10 % Basophils (%) (Auto) 0 0-10 % Neutrophils # (Auto) 11.8 H 1.8-7.8 X 10^3 Lymphocytes # (Auto) 0.5 L 1.0-4.0 X 10^3 Monocytes # (Auto) 0.2 0.0-1.0 X 10^3 Eosinophils # (Auto) 0.0 0.0-0.3 10^3/uL Basophils # (Auto) 0.0 0.0-0.1 10^3/uL Immature Granulocyte # (Auto) 0.1 0.0-0.1 10^3/uL Neutrophils % (Manual) 74 % Lymphocytes % (Manual) 3 % Monocytes % (Manual) 1 % Myelocytes % 1 % Band Neutrophils 21 % Platelet Estimate NORMAL Blood Morphology Comment NORMAL Sodium Level 137 135-145 MMOL/L Potassium Level 3.8 3.6-5.0 MMOL/L Chloride Level 101 98-107 MMOL/L Carbon Dioxide Level 23 21-32 MMOL/L Anion Gap 13 5-14 MMOL/L Blood Urea Nitrogen 20 H 7-18 MG/DL Creatinine 0.60 0.60-1.30 MG/DL Estimat Glomerular Filtration Rate 97 BUN/Creatinine Ratio 33 Glucose Level 152 H 70-105 MG/DL Calcium Level 9.0 8.5-10.1 MG/DL Corrected Calcium 9.0 8.5-10.1 MG/DL Total Bilirubin 0.5 0.1-1.0 MG/DL Aspartate Amino Transf (AST/SGOT) 17 5-34 U/L Alanine Aminotransferase (ALT/SGPT) 31 0-55 U/L Alkaline Phosphatase 84 40-136 U/L Total Protein 7.5 6.4-8.2 GM/DL Albumin 4.0 3.2-4.5 GM/DL My Orders Orders - CORIE PARIS MD Ct Head Wo (11/03/20 17:01) Cbc With Automated Diff (11/03/20 17:01) Comprehensive Metabolic Panel (11/03/20 17:01) Chest 1 View Ap/Pa Only (11/03/20 17:02) Manual Differential (11/03/20 17:00) Vital Signs/I&O 11/03/20 16:52 Temp 37.4 Pulse 109 Resp 24 B/P (MAP) 120/69 (86) Pulse Ox 95 O2 Delivery Room Air Capillary Refill : Progress Note : Progress Note 75-year-old female with above history coming in due to right arm temperature changes mostly as well as potentially mental status changes. ABCs were intact and vitals were stable on presentation. The patient is alert, answering questions, and protecting her airway. She does have right-sided weakness, but we have personally contacted her nursing staff as well as her conservator, and she is weak on the right side at baseline since her traumatic brain injury. They confirmed that the patient we are describing is her neuro baseline. Therefore, she was not made a stroke alert. Additionally, given her history of brain bleeding, she would not be a candidate for tenecteplase anyways. Glucose was normal. CT head ordered and interpreted by me showing no new large intracranial bleed. I have also reviewed her CT head from March 2020, and they appear similar. Chest XR without acute findings. Conservator later showed up and confirmed the patient is at her mental baseline, and that her arm looks normal to her. Her arm has a normal pulse, she is moving her fingers, and I do not see any evidence of a DVT or infection. She is mildly tachycardic, however she is anxious, and they apparently have been scheduling benzodiazepines for her anxiety. She also apparently needs to go to the bathroom which we have allowed. Blood pressure is otherwise okay and she has no signs of infection. I believe she is stable for discharge back to her facility. She was taken back by her conservator in stable condition with strict return precautions. ECG Initial ECG Impression Date: Nov 03, 2020 Initial ECG Impression Time: 16:51 Initial ECG Rate: 109 Initial ECG Rhythm: S.Tach Comment Narrow QRS, normal axis, no significant ST changes or T wave abnormalities Diagnostic Imaging Diagonstic Imaging: Xray (chest), CT (head) Comments [facility] [place] NAME: DARRICK GEORGE [facility] REC#: [id number] PT STATUS: REG ER : 1945 PHYSICIAN: CORIE PARIS MD ADMIT DATE: 11/03/20/ER FS Signed Date of Exam:11/03/20 CT HEAD WO PROCEDURE: CT head without contrast. TECHNIQUE: Multiple contiguous axial images were obtained through the brain without the use of intravenous contrast. Auto Exposure Controls were utilized during the CT exam to meet ALARA standards for radiation dose reduction. INDICATION: Altered mental status Comparison made to study dated 03/17/2020 The ventricles are normal in size, shape and position. There is some encephalomalacia in the left frontal white matter that was present previously. There are no masses or hemorrhages. There are no extra-axial fluid collections. IMPRESSION: No acute abnormality seen in head. No change since 03/17/2020. There is evidence of old ischemic injury in the left frontal lobe. Dictated by: Dictated on workstation # [id number] Dict: 11/03/201710 Trans: 11/03/201711 TCB [id number] Interpreted by: YUMI OLIVAS MD Electronically signed by: YUMI OLIVAS MD 11/03/201711 Departure Impression Primary Impression: Transient confusion Additional Impressions: Change of skin color Traumatic brain injury Qualified Codes: S06.9X0S - Unspecified intracranial injury without loss of consciousness, sequela Disposition: 01 HOME, SELF-CARE Condition: Stable Departure-Patient Inst. Decision time for Depature: 17:33 Referrals: NICANOR ESTRELLA DO (PCP/Family) Primary Care Physician Patient Instructions: Traumatic Brain Injury Add. Discharge Instructions: The patient was seen in the emergency department due to transient color changes to her skin mostly in her arm with temperature changes as well as potentially some confusion. She has back to her baseline. Her labs, imaging of her head and chest were normal. If you have any other concerns then he can call her PCP or bring her back to the ER. All discharge instructions reviewed with patient and/or family. Voiced und erstanding. CORIE PARIS MD Nov 03, 2020 17:12
[2020-11-03 17:14] LABS: BASOPHILS % (AUTO) 0 % (0-10); EOSINOPHILS % (AUTO) 0 % (0-10); HEMATOCRIT 43 % (35-52); HEMOGLOBIN 14.3 g/dL (11.5-16.0); LYMPHOCYTES # (AUTO) 0.5 X 10^3 (1.0-4.0); LYMPHOCYTES % (AUTO) 4 % (12-44); MEAN CORPUSCULAR HEMOGLOBIN 30 pg (25-34); MEAN CORPUSCULAR HGB CONC 33 g/dL (32-36); MEAN CORPUSCULAR VOLUME 90 fL (80-99); MEAN PLATELET VOLUME 11.2 fL (9.0-12.2); MONOCYTES # (AUTO) 0.2 X 10^3 (0.0-1.0); MONOCYTES % (AUTO) 2 % (0-12); NEUTROPHILS # (AUTO) 11.8 X 10^3 (1.8-7.8); NEUTROPHILS % (AUTO) 93 % (42-75); PLATELET COUNT 180 10^3/uL (130-400); WHITE BLOOD COUNT 12.7 10^3/uL (4.3-11.0)
--- NOTE | 2020-11-03 17:19 | Diagnostic Imaging Report ---
INDICATION: Altered mental status. TIME OF EXAM: 4:59 PM Correlation is made with prior chest from 09/30/2019. The heart size is normal. The pulmonary vascularity is unremarkable. The lungs are clear. No infiltrate, effusion or pneumothorax is detected. IMPRESSION: No acute cardiopulmonary process is detected. Dictated by: Dictated on workstation # [id number]
[2020-11-03 17:24] LABS: BAND NEUTROPHILS 21 %; LYMPHOCYTES % (MANUAL) 3 %; MONOCYTES % (MANUAL) 1 %; MYELOCYTES % 1 %; NEUTROPHILS % (MANUAL) 74 %; PLATELET ESTIMATE NORMAL; RBC MORPH NORMAL
[2020-11-03 17:29] LABS: BILIRUBIN,TOTAL 0.5 MG/DL (0.1-1.0); CREATININE SERUM 0.6 MG/DL (0.60-1.30); POTASSIUM 3.8 MMOL/L (3.6-5.0); TOTAL PROTEIN 7.5 GM/DL (6.4-8.2)
[2020-11-03 17:46] VITALS: BP 122/69
[2020-11-05] MEDS ORDERED: AMOX-358 PO (14:44)
[2020-11-05] MEDS ORDERED: ACHD5005 PO (14:44)
== END 2020-11-03 17:47 | disposition home or self-care (01) ==
LOC: EDUNIT# 16:47 → ER FS 16:49
DX: S06.9X0A Unspecified intracranial injury without loss of consciousness, initial encounter (principal); R41.0 Disorientation, unspecified; R23.8 Other skin changes; I10 Essential (primary) hypertension; E78.00 Pure hypercholesterolemia, unspecified; E11.9 Type 2 diabetes mellitus without complications; Z86.73 Personal history of transient ischemic attack (TIA), and cerebral infarction without residual deficits; Z79.899 Other long term (current) drug therapy; Z79.84 Long term (current) use of oral hypoglycemic drugs; X58.XXXA Exposure to other specified factors, initial encounter
CPT/HCPCS: 36415; 70450; 71045; 80053; 85007; 85027; 93005

== ENCOUNTER 2020-11-04 13:22 | Observation (INO) | payer MEDICARE ==
[~2020-11-04] VITALS: Ht 157.5 cm; Wt 55.1 kg
[2020-11-04] MEDS ORDERED: ONDANSETRON 4 MG/2 ML (SDV) Z0FRAN IVP STA (13:32)
[2020-11-04] MEDS ORDERED: PANTOPRAZOLE 40 MG (PROTONIX) VIAL IV STA (13:32)
[2020-11-04] MEDS ORDERED: NS IV 1000 ML 1,000 ML IV STA ×2 (13:32→16:14)
--- NOTE | 2020-11-04 13:47 | ED General ---
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. She was seen yesterday in ED for vague complaints of headache. Today the staff reports she complained of abdominal pain, nausea, not eating her food. She had a reported fever of 102F when they checked her temperature in her cheek but was afebrile when checking temperature on forehead. She has pain with pushing on her abdomen and is guarding. Timing/Duration: 4-6 Hours Severity: Moderate Associated Systoms: No Chest Pain, No Cough, No Diaphoresis; Fever/Chills (possibly fever since had elevated Temp when checked over her cheek but normal over forehead), Headaches, Loss of Appetite, Malaise, Nausea/Vomiting; No Seizure, No Shortness of Air, No Syncope Allergies and Home Medications Allergies Coded Allergies: No Known Drug Allergies (Verified , 04/29/15) Patient Home Medication List Home Medication List Reviewed: Yes Acetaminophen (Acetaminophen) 325 Mg Tablet, 650 MG PO Q6H PRN for PAIN-MILD (1- 4) Prescribed by: NICANOR ESTRELLA on 10/24/19 1318 Meclizine HCl (Meclizine HCl) 25 Mg Tablet, 25 MG PO TID PRN for DIZZINESS, (Reported) Entered as Reported by: PHILLIP COTTER on 10/17/18 0915 Metformin HCl (Metformin HCl ER) 500 Mg Tab.er.24, 500 MG PO DAILY Prescribed by: NICANOR ESTRELLA on 10/24/19 1505 Metoprolol Succinate (Metoprolol Succinate) 25 Mg Tab.er.24h, 25 MG PO DAILY, (Reported) Entered as Reported by: RASHID ODEN on 10/22/19 1319 Ondansetron (Ondansetron Odt) 4 Mg Tab.rapdis, 4 MG PO Q4H Prescribed by: NICANOR ESTRELLA on 10/24/19 1318 Rosuvastatin Calcium (Crestor) 10 Mg Tablet, 10 MG PO HS, (Reported) Entered as Reported by: PHILLIP COTTER on 10/17/18 0915 [Lidocaine 4% Patch] 1 EA PATCH, 2 EA TOP DAILY Prescribed by: NICANOR ESTRELLA on 10/24/19 1318 Review of Systems Review of Systems Constitutional: No fever EENTM: no symptoms reported Respiratory: no symptoms reported Cardiovascular: no symptoms reported Gastrointestinal: see HPI, abdominal pain Genitourinary: decreased output Musculoskeletal: no symptoms reported Skin: No rash Psychiatric/Neurological: Headache Past Oywbflk-Tgmlas-Fsnpny Hx Immunizations Up To Date Tetanus Booster (TDap): More than 5yrs Seasonal Allergies Seasonal Allergies: No Past Medical History Surgeries: Yes (EGD/COLONOSCOPY 04/2015) Orthopedic Respiratory: No Cardiac: Yes High Cholesterol, Hypertension, Valvular Heart Disease Neurological: Yes (subarachnoid hemorrhage) Stroke, TIA, Vertigo 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 Diabetes father liver disease Physical Exam Vital Signs Vital Signs - First Documented 11/04/20 13:22 Temp 36.8 Pulse 99 Resp 16 B/P (MAP) 129/63 (85) Pulse Ox 99 O2 Delivery Room Air Capillary Refill : Height, Weight, BMI Height: 5'0.00" Weight: 118lbs. 1.0oz. [id number]; 25.00 BMI Method:Stated General Appearance: Anxious, Mild Distress HEENT: PERRL/EOMI; No Moist Mucous Membranes (slightly dry mucous membranes) Neck: Full Range of Motion, Normal Inspection, Non Tender, Supple Respiratory: Chest Non Tender, Lungs Clear, Normal Breath Sounds, No Accessory Muscle Use, No Respiratory Distress Cardiovascular: Regular Rate, Rhythm, Normal Peripheral Pulses Gastrointestinal: No Pulsatile Mass, Soft, Abnormal Bowel Sounds (hypoactive), Guarding; No Rebound; Tenderness (diffuse mild) Rectal: Deferred Extremity: Normal Capillary Refill, Normal Inspection, No Pedal Edema Neurologic/Psychiatric: Alert Skin: Warm/Dry Progress/Results/Core Measures Suspected Sepsis SIRS Temperature: Pulse: Respiratory Rate: Laboratory Tests 11/04/20 14:10: White Blood Count 15.6H Blood Pressure / Mean: Laboratory Tests 11/04/20 14:10: Creatinine 0.75, Platelet Count 175, Total Bilirubin 0.5 Results/Orders Lab Results Laboratory Tests Test 11/04/20 14:10 Range/Units White Blood Count 15.6 H 4.3-11.0 10^3/uL Red Blood Count 4.84 3.80-5.11 10^6/uL Hemoglobin 14.4 11.5-16.0 g/dL Hematocrit 44 35-52 % Mean Corpuscular Volume 92 80-99 fL Mean Corpuscular Hemoglobin 30 25-34 pg Mean Corpuscular Hemoglobin Concent 33 32-36 g/dL Red Cell Distribution Width 13.1 10.0-14.5 % Platelet Count 175 130-400 10^3/uL Mean Platelet Volume 11.6 9.0-12.2 fL Immature Granulocyte % (Auto) 0 % Neutrophils (%) (Auto) 91 H 42-75 % Lymphocytes (%) (Auto) 4 L 12-44 % Monocytes (%) (Auto) 4 0-12 % Eosinophils (%) (Auto) 0 0-10 % Basophils (%) (Auto) 0 0-10 % Neutrophils # (Auto) 14.2 H 1.8-7.8 X 10^3 Lymphocytes # (Auto) 0.7 L 1.0-4.0 X 10^3 Monocytes # (Auto) 0.7 0.0-1.0 X 10^3 Eosinophils # (Auto) 0.0 0.0-0.3 10^3/uL Basophils # (Auto) 0.0 0.0-0.1 10^3/uL Immature Granulocyte # (Auto) 0.1 0.0-0.1 10^3/uL Neutrophils % (Manual) 81 % Lymphocytes % (Manual) 1 % Monocytes % (Manual) 6 % Eosinophils % (Manual) 0 % Basophils % (Manual) 0 % Band Neutrophils 12 % Urine Color DARK YELLOW Urine Clarity CLEAR Urine pH 6.0 5-9 Urine Specific [place] >=1.030 1.016-1.022 Urine Protein 2+ H NEGATIVE Urine Glucose (UA) 1+ H NEGATIVE Urine Ketones 1+ H NEGATIVE Urine Nitrite NEGATIVE NEGATIVE Urine Bilirubin NEGATIVE NEGATIVE Urine Urobilinogen 0.2 < = 1.0 MG/DL Urine Leukocyte Esterase NEGATIVE NEGATIVE Urine RBC (Auto) 3+ H NEGATIVE Urine RBC RARE /HPF Urine WBC 0-2 /HPF Urine Squamous Epithelial Cells RARE /HPF Urine Crystals NONE /LPF Urine Amorphous Sediment FEW JADON URATES H /LPF Urine Bacteria FEW H /HPF Urine Casts NONE /LPF Urine Mucus SMALL H /LPF Urine Culture Indicated YES Sodium Level 133 L 135-145 MMOL/L Potassium Level 3.8 3.6-5.0 MMOL/L Chloride Level 94 L 98-107 MMOL/L Carbon Dioxide Level 24 21-32 MMOL/L Anion Gap 15 H 5-14 MMOL/L Blood Urea Nitrogen 19 H 7-18 MG/DL Creatinine 0.75 0.60-1.30 MG/DL Estimat Glomerular Filtration Rate 75 BUN/Creatinine Ratio 25 Glucose Level 202 H 70-105 MG/DL Calcium Level 8.9 8.5-10.1 MG/DL Corrected Calcium 9.1 8.5-10.1 MG/DL Total Bilirubin 0.5 0.1-1.0 MG/DL Aspartate Amino Transf (AST/SGOT) 14 5-34 U/L Alanine Aminotransferase (ALT/SGPT) 23 0-55 U/L Alkaline Phosphatase 77 40-136 U/L Total Protein 7.5 6.4-8.2 GM/DL Albumin 3.8 3.2-4.5 GM/DL Lipase 11 8-78 U/L My Orders Orders - JOSÉ WORKMAN MD Comprehensive Metabolic Panel (11/04/20 13:32) Lipase (11/04/20 13:32) Ua Culture If Indicated (11/04/20 13:32) Ed Iv/Invasive Line Start (11/04/20 13:32) Cbc With Automated Diff (11/04/20 13:32) Ct Abdomen/Pelvis W (11/04/20 13:32) Straight Cath For Spec.-Adult (11/04/20 13:32) Ns Iv 1000 Ml (Sodium Chloride 0.9%) (11/04/20 13:32) Ondansetron Injection (Zofran Injectio (11/04/20 13:32) Pantoprazole Injection (Protonix Injecti (11/04/20 13:32) Iohexol Injection (Omnipaque 350 Mg/Ml 1 (11/04/20 14:15) Received Contrast (Hold Metformin- Contr (11/04/20 14:15) Sodium Chloride Flush (Catheter Flush Sy (11/04/20 14:15) Ns (Ivpb) (Sodium Chloride 0.9% Ivpb Bag (11/04/20 14:15) Manual Differential (11/04/20 14:10) Urine Culture (11/04/20 14:10) Ns Iv 1000 Ml (Sodium Chloride 0.9%) (11/04/20 16:14) Piperacillin Sodium/Tazobactam (Zosyn Vi (11/04/20 16:14) Fentanyl Inj (Sublimaze Injection) (11/04/20 16:14) Medications Given in ED Current Medications Medications Dose Ordered Sig/Angelica Route Start Time Stop Time Status Last Admin Dose Admin Iohexol 100 ml ONCE ONCE IV 11/04/20 14:15 11/04/20 14:16 DC 11/04/20 15:07 75 ML Sodium Chloride 10 ml NEEDED PRN IV 11/04/20 14:15 11/04/20 18:23 DC 11/04/20 15:07 10 ML Sodium Chloride 100 ml ONCE ONCE IV 11/04/20 14:15 11/04/20 14:16 DC 11/04/20 15:06 80 ML Vital Signs/I&O 11/04/20 11/04/20 13:22 17:16 Temp 36.8 Pulse 99 95 Resp 16 18 B/P (MAP) 129/63 (85) 132/66 Pulse Ox 99 95 O2 Delivery Room Air Room Air Capillary Refill : Progress Note #1: Progress Note Check labs and urine to see if anything shows to account for her symptoms. Obtain CT scan of abdomen/pelvis with IV contrast since Cr is known to be normal from last night. Give IVF for hydration, Protonix for possible gastritis, Zofran for nausea. Progress Note #2: Progress Note Lab shows elevated WBC count to 15.6 with left shift and 12 % bands. She has stable chemisty. UA was cath specimen and showed blood, concentrated with elevated specific gravity, ketones. CT scan shows inflammatory changes in RLQ and signs of acute appendicitis and possible developing abscess RLQ. 1602 D/w Dr. Moncada retail operations specialist for surgery and will admit for IV antibiotics with pain and nausea control. NPO after midnight but clear liquid until then. Anti cipate surgery after scheduled cases. Diagnostic Imaging Diagonstic Imaging: CT Plain Films/CT/US/NM/MRI: abdomen, pelvis Comments [facility], [place] NAME: DARRICK GEORGE [facility] REC#: [id number] PT STATUS: REG ER : 1945 PHYSICIAN: JOSÉ WORKMAN MD ADMIT DATE: 11/04/20/ER FS Signed Date of Exam:11/04/20 CT ABDOMEN/PELVIS W PROCEDURE: CT abdomen and pelvis with contrast. TECHNIQUE: Multiple contiguous axial images were obtained through the abdomen and pelvis after administration of intravenous contrast. Auto Exposure Controls were utilized during the CT exam to meet ALARA standards for radiation dose reduction. All CT scans use one or more of the following dose optimizing techniques: automated exposure control, MA and/or KvP adjustment based on patient size and exam type or iterative reconstruction. INDICATION: Generalized abdominal pain and guarding. COMPARISON: None. FINDINGS: There is moderate inflammatory change in the right lower quadrant. There is abnormal enlargement of the visualized portions of the appendix. There is an appendicolith in the lumen. There is a small fluid collection adjacent to the appendix measuring 2 cm which could be a small developing abscess or hematoma. There is a mild amount of ascites within the pelvis. There is some adjacent thickening of the small bowel which is likely reactive. There is constipation without bowel obstruction or free air. The uterus is enlarged. The urinary bladder is unremarkable. Additional solid organs, gallbladder, vascular structures, and lung bases are grossly intact. IMPRESSION: 1. Moderate inflammatory change in the right lower quadrant with an enlarged abnormal appearing appendix (likely acute appendicitis) with reactive inflammatory change involving the adjacent small bowel. 2. Developing abscess versus hematoma in the right lower quadrant measuring 2 cm. 3. Likely reactive ascites within the pelvis. 4. Uterine enlargement. Dictated by: Dictated on workstation # [id number] Dict: 11/04/20 1531 Trans: 11/04/20 1609 [id number] Interpreted by: MICHAEL SOMERS Electronically signed by: MICHAEL SOMERS 11/04/20 1609 Reviewed: Reviewed by Fl Departure Communication (Admissions) Time/Spoke to Admitting Phy: 16:02 d/w Dr. Moncada, retail operations specialist surgeron, and will accept admit for acute appendicitis. Zosyn, pain and nausea control and plan Lap appy after scheduled cases. Impression Primary Impression: Acute appendicitis Qualified Codes: K35.33 - Acute appendicitis with perforation and localized peritonitis, with abscess Disposition: 30 STILL A PATIENT Condition: Stable Admissions Decision to Admit Reason: Admit from ER (General) Decision to Admit/Date: Nov 04, 2020 Time/Decision to Admit Time: 16:02 Departure-Patient Inst. Referrals: NICANOR ESTRELLA DO (PCP/Family) Primary Care Physician JOSÉ WORKMAN MD Nov 04, 2020 13:47
[2020-11-04] MEDS ORDERED: HOLD METFORMIN - RECEIVED CONTRAST 20 ML VIAL IV SCH (14:15)
[2020-11-04] MEDS ORDERED: IOHEXOL 350 MG/ML 100 ML (OMNIPAQUE 350) VIAL IV ONE (14:15)
[2020-11-04] MEDS ORDERED: CATHETER FLUSH 10 ML SYR IV PRN ×2 (14:15→20:00)
[2020-11-04] MEDS ORDERED: NS 100 ML (IVPB) BAG IV ONE (14:15)
[2020-11-04 14:32] LABS: HEMATOCRIT 44 % (35-52); MEAN CORPUSCULAR HGB CONC 33 g/dL (32-36); MEAN CORPUSCULAR VOLUME 92 fL (80-99); MEAN PLATELET VOLUME 11.6 fL (9.0-12.2); PLATELET COUNT 175 10^3/uL (130-400); WHITE BLOOD COUNT 15.6 10^3/uL (4.3-11.0)
[2020-11-04 14:33] LABS: BASOPHILS % (AUTO) 0 % (0-10); EOSINOPHILS % (AUTO) 0 % (0-10); HEMOGLOBIN 14.4 g/dL (11.5-16.0); LYMPHOCYTES # (AUTO) 0.7 X 10^3 (1.0-4.0); LYMPHOCYTES % (AUTO) 4 % (12-44); MEAN CORPUSCULAR HEMOGLOBIN 30 pg (25-34); MONOCYTES # (AUTO) 0.7 X 10^3 (0.0-1.0); MONOCYTES % (AUTO) 4 % (0-12); NEUTROPHILS # (AUTO) 14.2 X 10^3 (1.8-7.8); NEUTROPHILS % (AUTO) 91 % (42-75)
[2020-11-04 14:42] LABS: CLARITY,URINE CLEAR; COLOR,URINE DARK YELLOW; GLUCOSE, URINE (UA) 1+ (NEGATIVE); KETONES,URINE 1+ (NEGATIVE); PROTEIN,URINE 2+ (NEGATIVE)
[2020-11-04 14:43] LABS: AMORPHOUS SEDIMENT,UR FEW AMOR URATES /LPF; BACTERIA,URINE FEW /HPF; BILIRUBIN,URINE NEGATIVE (NEGATIVE); LEUKOCYTE ESTERASE ,URINE NEGATIVE (NEGATIVE); NITRITE,URINE NEGATIVE (NEGATIVE); RBC,URINE RARE /HPF; SQUAMOUS EPITHELIAL CELL,UR RARE /HPF; WBC,URINE 0-2 /HPF
[2020-11-04 14:56] LABS: BAND NEUTROPHILS 12 %; BASOPHILS % (MANUAL) 0 %; EOSINOPHILS % (MANUAL) 0 %; LYMPHOCYTES % (MANUAL) 1 %; MONOCYTES % (MANUAL) 6 %; NEUTROPHILS % (MANUAL) 81 %
[2020-11-04 14:58] LABS: POTASSIUM 3.8 MMOL/L (3.6-5.0)
[2020-11-04 14:59] LABS: BILIRUBIN,TOTAL 0.5 MG/DL (0.1-1.0); TOTAL PROTEIN 7.5 GM/DL (6.4-8.2)
[2020-11-04 15:25] LABS: CREATININE SERUM 0.75 MG/DL (0.60-1.30)
[2020-11-04 15:26] LABS: CALCIUM 8.9 MG/DL (8.5-10.1)
[2020-11-04 15:29] LABS: ALBUMIN 3.8 GM/DL (3.2-4.5)
--- NOTE | 2020-11-04 15:41 | Diagnostic Imaging Report ---
PROCEDURE: CT abdomen and pelvis with contrast. TECHNIQUE: Multiple contiguous axial images were obtained through the abdomen and pelvis after administration of intravenous contrast. Auto Exposure Controls were utilized during the CT exam to meet ALARA standards for radiation dose reduction. All CT scans use one or more of the following dose optimizing techniques: automated exposure control, MA and/or KvP adjustment based on patient size and exam type or iterative reconstruction. INDICATION: Generalized abdominal pain and guarding. COMPARISON: None. FINDINGS: There is moderate inflammatory change in the right lower quadrant. There is abnormal enlargement of the visualized portions of the appendix. There is an appendicolith in the lumen. There is a small fluid collection adjacent to the appendix measuring 2 cm which could be a small developing abscess or hematoma. There is a mild amount of ascites within the pelvis. There is some adjacent thickening of the small bowel which is likely reactive. There is constipation without bowel obstruction or free air. The uterus is enlarged. The urinary bladder is unremarkable. Additional solid organs, gallbladder, vascular structures, and lung bases are grossly intact. IMPRESSION: 1. Moderate inflammatory change in the right lower quadrant with an enlarged abnormal appearing appendix (likely acute appendicitis) with reactive inflammatory change involving the adjacent small bowel. 2. Developing abscess versus hematoma in the right lower quadrant measuring 2 cm. 3. Likely reactive ascites within the pelvis. 4. Uterine enlargement. Dictated by: Dictated on workstation # [id number]
--- NOTE | 2020-11-04 16:13 | Progress Note-Pre Operative ---
Pre-Operative Progress Note H&P Reviewed The H&P was reviewed, patient examined and no changes noted. Date Seen by Provider: Nov 04, 2020 Time Seen by Provider: 16:15 Date H&P Reviewed: Nov 04, 2020 Time H&P Reviewed: 16:15 Pre-Operative Diagnosis: acute appendicitis AMMON GUAJARDO MD Nov 04, 2020 16:13
[2020-11-04] MEDS ORDERED: fentaNYL INJ 100 MCG/2 ML AMP IVP STA (16:14)
[2020-11-04] MEDS ORDERED: PIPERACILLIN SODIUM/TAZOBACTAM 4.5 GM in NS (IVPB) 100 ML IV STA (16:14)
--- NOTE | 2020-11-04 16:21 | HISTORY AND PHYSICAL ---
DATE OF SERVICE: ADMITTING PRIMARY CARE PHYSICIAN: Breanna Sweeney DO HISTORY OF PRESENT ILLNESS: The patient is a 75-year-old female, who presented to [facility] with a 1-day history of pain more in the right lower abdominal quadrant. She states that she has not had this before in the past. A CT scan was performed, which did show an inflamed appendix as well as a fluid collection approximately 2 cm in size, which may represent a developing abscess versus a hematoma. She does not report any nausea nor vomiting as well as no fever, no chills. PAST MEDICAL HISTORY: Hypertension, hypercholesterolemia, valvular heart disease, history of stroke and subarachnoid hemorrhage, diverticulosis, hiatal hernia, gastroesophageal reflux disease, osteoporosis, diabetes, anxiety. PAST SURGICAL HISTORY: Orthopedic procedure. ALLERGIES: No known drug allergies. MEDICATIONS: Metformin 500 mg daily, metoprolol 25 mg daily, Zofran 4 mg p.r.n., rosuvastatin 10 mg daily. SOCIAL HISTORY: Negative smoke, negative alcohol. FAMILY HISTORY: Noncontributory. VITAL SIGNS: Temperature 36.8, blood pressure 129/63, pulse 99, respirations 16, pulse ox 99% on room air. REVIEW OF SYSTEMS: A well-nourished female, currently in no acute distress. She is not experiencing any shortness of breath or difficulty breathing. No chest pain, palpitations, diaphoresis. No nausea, vomiting. No diarrhea, constipation. No red blood per rectum, no dark tarry stools. No fever, chills, no recent inadvertent weight loss. All other review of systems negative. PHYSICAL EXAMINATION: CHEST: Clear. Good breath sounds bilaterally. HEART: Regular, no murmurs. EXTREMITIES: No lower extremity edema, negative Homans sign. HEENT: No scleral icterus. NECK: No cervical lymphadenopathy. ABDOMEN: Soft, nondistended. There is pain in the right lower abdominal quadrant McBurney's point with voluntary guarding, no rebound. No hernias. SKIN: Warm, dry. LABORATORY DATA: WBC 15.6, hemoglobin 14.4, hematocrit 44, platelets 175. BUN 19, creatinine 0.75. Liver function enzymes are normal. ASSESSMENT AND PLAN: A 75-year-old female with acute appendicitis. The natural history of this disease process was explained to the patient including the risks and benefits of surgery and she is in full understanding of this and would like to proceed with a laparoscopic appendectomy, which we will schedule. Job ID: [id number] DocumentID: [id number] Dictated Date: 11/04/2020 16:10:39 Meat Processor Date: 11/04/2020 16:21:09 Dictated By: AMMON GUAJARDO MD
[2020-11-04 19:17] VITALS: BP 118/59
[2020-11-04] MEDS: NS IV 1000 ML 1,000 ML IV SCH (19:45)
[2020-11-04] MEDS ORDERED: ONDANSETRON 4 MG/2 ML (SDV) Z0FRAN IV PRN (19:45)
[2020-11-04] MEDS: fentaNYL INJ 100 MCG/2 ML AMP IV PRN (22:33)
[2020-11-04] MEDS: PIPERACILLIN/TAZO 4.5 GM/NS 100 ML IV SCH ×2 (23:26)
[2020-11-05] VITALS (12 sets, daily range): BP systolic 97–144; BP diastolic 52–74
[2020-11-05] MEDS: fentaNYL INJ 100 MCG/2 ML AMP IV PRN ×7 (03:30→23:49)
[2020-11-05] MEDS: PIPERACILLIN/TAZO 4.5 GM/NS 100 ML IV SCH ×6 (06:37→22:03)
[2020-11-05] MEDS: NS IV 1000 ML 1,000 ML IV SCH ×2 (06:38→15:58)
[2020-11-05] MEDS ORDERED: VNL75T PO (12:02)
[2020-11-05] MEDS ORDERED: METF-397 PO (12:02)
[2020-11-05] MEDS ORDERED: OXYB5TAB13 PO (12:02)
[2020-11-05] MEDS ORDERED: ONDA-105 PO (12:02)
[2020-11-05] MEDS ORDERED: DIVA125T2 PO (12:02)
[2020-11-05] MEDS ORDERED: ALPR0.25 PO (12:02)
[2020-11-05] MEDS ORDERED: CHOL100048 PO (12:02)
[2020-11-05] MEDS ORDERED: MECL-149 PO (12:02)
[2020-11-05] MEDS ORDERED: MTP25TSR PO (12:03)
[2020-11-05] MEDS ORDERED: ZINC50TA58 PO (12:03)
[2020-11-05] MEDS ORDERED: ROSU10TA22 PO (12:03)
[2020-11-05] MEDS ORDERED: LIDO-11 TP (12:03)
[2020-11-05] MEDS ORDERED: ACET-2840 PO (12:03)
[2020-11-05] MEDS ORDERED: MAGN400O7 PO (12:03)
[2020-11-05] MEDS ORDERED: VENL75TA2 PO (12:10)
[2020-11-05] MEDS ORDERED: DIVA250T2 PO (12:10)
[2020-11-05] MEDS ORDERED: LIDOCAINE/EPI 1%-1:200,000 (XYLOCAINE) 30 ML VIAL ONE (12:19)
[2020-11-05] MEDS: LACTATED RINGERS 1,000 ML IV PRN ×3 (12:25→14:53)
[2020-11-05] MEDS ORDERED: ceFAZolin INJECTION 1,000 MG ONE (12:57)
[2020-11-05] MEDS ORDERED: ceFAZolin INJECTION 1,000 MG in WATER (STERILE) FOR INJECTION 10 ML IV NR (13:00)
[2020-11-05] MEDS ORDERED: SEVOFLURANE (ULTANE) 15 ML INHAL SOLN ONE ×2 (13:08→14:37)
[2020-11-05] MEDS ORDERED: fentaNYL INJ 100 MCG/2 ML AMP ONE (13:08)
[2020-11-05] MEDS ORDERED: proPOfol 200 MG/20 ML (DIPRIVAN) VIAL IV ONE (13:08)
[2020-11-05] MEDS ORDERED: LIDOCAINE PF 2% 5 ML (XYLOCAINE) VIAL ONE (13:08)
[2020-11-05] MEDS ORDERED: PHENYLEPHRINE 100 MCG/ML 10 ML (ANESTHESIA) SYR ONE (13:25)
[2020-11-05] MEDS ORDERED: ROCURONIUM 10 MG/ML 5 ML SYRINGE IV ONE (13:28)
[2020-11-05] MEDS ORDERED: ONDANSETRON 4 MG/2 ML (SDV) Z0FRAN ONE (13:29)
[2020-11-05] MEDS ORDERED: NEOSTIGMINE 3 MG/3 ML VIAL ONE (14:39)
[2020-11-05] MEDS ORDERED: GLYCOPYRROLATE 0.2 MG/ML (ROBINUL) 2 ML VIAL ONE (14:39)
--- NOTE | 2020-11-05 14:43 | Progress Note-Post Operative ---
Post-Operative Progess Note Surgeon (s)/Accountant Certified Public (s) Surgeon AMMON GUAJARDO MD Accountant Certified Public: julia bacon LITHOGRAPH DESIGNER Pre-Operative Diagnosis acute appendicitis Post-Operative Diagnosis perforated appendicitis Procedure & Operative Findings Date of Procedure 11/05/20 Procedure Performed/Findings laparoscopic appendectomy Anesthesia Type get Estimated Blood Loss Estimated blood loss (mL): minimal Specimens/Packing Specimens Removed appendix AMMON GUAJARDO MD Nov 05, 2020 14:43
[2020-11-05] MEDS ORDERED: AMOX-358 PO (14:44)
[2020-11-05] MEDS ORDERED: ACHD5005 PO (14:44)
[2020-11-05] MEDS ORDERED: LACTATED RINGERS 1,000 ML IV PRN (14:45)
--- NOTE | 2020-11-05 14:45 | Discharge Inst-Surgical ---
D/C Lap Instructions-CASANDRA New, Converted, or Re-Newed RX: RX on Chart Follow Up Appt in 2 weeks Activity as tolerated Regular Diet Symptoms to Report: Fever over 101 degree F, Nausea/Vomiting Infection Signs and Symptoms to report: Increased redness, Foul odor of wound, Increased drainage Bathing instructions: May shower Operative Area Clean/Dry; Keep incision clean/dry If any problems/questions: Contact your physician or go to Emergency Room AMMON GUAJARDO MD Nov 05, 2020 14:45
--- NOTE | 2020-11-05 15:12 | Anesthesia-General Post-Op ---
General Patient Condition Mental Status/LOC: Same as Preop Cardiovascular: Satisfactory Nausea/Vomiting: Absent Respiratory: Satisfactory Pain: Controlled Complications: Absent Post Op Complications Complications None Follow Up Care/Instructions Patient Instructions None needed. Anesthesia/Patient Condition Patient Condition Patient is doing well, no complaints, stable vital signs, no apparent adverse anesthesia problems. No complications reported per nursing. KALEB CORTEZ CRNA Nov 05, 2020 15:12
[2020-11-05] MEDS ORDERED: fentaNYL INJ 100 MCG/2 ML AMP IVP ONE (15:30)
[2020-11-05] MEDS ORDERED: ONDANSETRON 4 MG/2 ML (SDV) Z0FRAN IVP PRN (15:30)
--- NOTE | 2020-11-05 18:45 | OPERATIVE REPORT ---
DATE OF SERVICE: 11/05/2020 ATTENDING PHYSICIAN: Breanna Sweeney DO. PREOPERATIVE DIAGNOSIS: Acute appendicitis. POSTOPERATIVE DIAGNOSIS: Perforated acute appendicitis. PROCEDURE PERFORMED: Laparoscopic appendectomy. SURGEON: Jose Moncada MD. COMBINATION MACHINE TOOL OPERATOR: Julio Lopez APRN. ANESTHESIA: General endotracheal. ESTIMATED BLOOD LOSS: Minimal. FINDINGS: Walled off perforated appendicitis. No free perforation. DISPOSITION: The patient tolerated the procedure well. INDICATIONS FOR PROCEDURE: The patient is a 75-year-old female, who presented to [facility] with a one-day history of pain in the right lower abdominal quadrant. She is a resident of a intermediate facility. She does understand some Congolese; however, does not communicate in Congolese very well. A CT scan was performed, which did show an inflamed appendix as well as a fluid collection 2 cm in size adjacent to it representing a developing abscess versus a hematoma. DESCRIPTION OF PROCEDURE: The patient was brought to the operating room and laid supine on the table. After adequate IV pain and sedative medications and general endotracheal intubation, the abdomen was prepped and draped in a standard surgical fashion. A 0.5% Marcaine with epinephrine was used to anesthetize the overlying skin and left upper abdominal quadrant incision made using a 15 blade. A 0 silk suture was applied to the medial aspect of the incision for retraction and a Veress needle inserted with low opening pressure of 0 mmHg. The abdomen was insufflated to 15 mmHg pressure. The Veress needle was removed and a 5 mm XL trocar was placed followed by a 5 mm 45-degree angle laparoscope visualizing the peritoneal cavity. A four-quadrant abdominal exploration was performed. The appendix could not be visualized at this time. I proceeded to place a supraumbilical 10 mm port after the skin and peritoneal lining were anesthetized using 0.5% epinephrine and a transverse skin incision was made using a 15 blade. In a similar manner, a suprapubic 5 mm port was placed. The cecum was identified and retracted laterally and a walled-off perforated appendicitis was identified. We then proceeded with a meticulous dissection of the appendix as well as the mesoappendix until the entire appendix and mesoappendix were freed and removed. The appendix was then stapled and transected at the viable cecal base using a ALONSO 45 mm stapler 2.5 mm thickness load. Good hemostasis was observed. The appendix was removed through the 10 mm port site using an EndoCatch bag. The walled-off area was then copiously irrigated and suctioned. A 19-Khmer Ken-Thakur drain was placed and then pulled out through the suprapubic 5 mm port site and sutured to the skin using a 3-0 nylon interrupted suture. The 10 mm port site fascia and peritoneum were then closed under direct visualization using a Iain-Jennifer and 0 Vicryl suture. The abdomen was desufflated and the remaining ports were removed. All skin incisions were closed using 4-0 Monocryl running subcuticular sutures. Wounds were then cleaned and covered with Dermabond. The patient tolerated the procedure well. We will admit her back to the floor and continue with IV antibiotics for 24 hours and when she is tolerating clears and has adequate pain control with oral pain medications and ambulating to her baseline we will then discharge her home. Job ID: [id number] DocumentID: [id number] Dictated Date: 11/05/2020 14:56:29 Vender Date: 11/05/2020 17:46:26 Dictated By: JOSE MONCADA MD MTDD
[2020-11-06] VITALS (8 sets, daily range): BP systolic 120–176; BP diastolic 67–86
[2020-11-06] MEDS: fentaNYL INJ 100 MCG/2 ML AMP IV PRN ×3 (01:44→12:34)
[2020-11-06] MEDS: NS IV 1000 ML 1,000 ML IV SCH ×3 (02:54→21:45)
[2020-11-06] MEDS: HYDROcodone/APAP 7.5 MG/325 MG (LORTAB, LORCET PLUS) TABLET PO PRN ×2 (05:06→11:02)
[2020-11-06] MEDS: PIPERACILLIN/TAZO 4.5 GM/NS 100 ML IV SCH ×4 (06:34→16:48)
--- NOTE | 2020-11-06 11:03 | Progress Note ---
Subjective Date Seen by a Provider: Nov 06, 2020 Time Seen by a Provider: 10:00 Subjective/Events-last exam doing ok. tolerating clears. confused. minimal SS drain output. no fever/chills. Objective Exam Vital Signs Date Time Temp Pulse Resp B/P (MAP) Pulse Ox O2 Delivery O2 Flow Rate FiO2 11/06/20 08:00 Room Air 11/06/20 07:15 37.2 108 18 128/71 (90) 96 Room Air 11/06/20 05:54 37.2 11/06/20 04:00 37.2 120 20 153/76 (101) 93 Room Air 11/06/20 02:14 36.9 11/06/20 01:44 36.9 11/06/20 00:19 36.9 11/06/20 00:00 37.0 118 18 130/68 (88) 94 Room Air 11/05/20 23:49 36.9 11/05/20 22:33 36.9 11/05/20 20:14 36.9 11/05/20 20:05 36.9 128 18 105/74 (84) 94 Room Air 11/05/20 20:00 94 Room Air 11/05/20 16:00 36.6 115 18 137/65 (89) 95 Simple Mask 11/05/20 15:45 Room Air 11/05/20 15:40 37.1 16 144/73 (96) 93 Room Air 11/05/20 15:30 Room Air 11/05/20 15:30 18 134/66 (88) 95 Room Air 11/05/20 15:20 20 136/74 (94) 98 OxyMask 2 11/05/20 15:10 19 136/71 (92) 97 OxyMask 3 11/05/20 15:05 OxyMask 4 11/05/20 15:00 18 116/62 (80) 97 OxyMask 4 11/05/20 14:53 36.8 20 97/52 (67) 96 OxyMask 6 11/05/20 14:53 OxyMask 6 11/05/20 12:00 37.6 111 22 134/74 (94) 91 Room Air I & O 11/06/20 07:00 Intake Total 2550 ml Output Total 2080 ml Balance 470 ml Capillary Refill : General Appearance: No Apparent Distress HEENT: PERRL/EOMI Neck: Full Range of Motion Respiratory: Chest Non Tender, Lungs Clear Cardiovascular: Regular Rate, Rhythm Gastrointestinal: normal bowel sounds, tenderness Extremity: Normal Capillary Refill Neurologic/Psychiatric: Alert, Oriented x3 Skin: Normal Color Lymphatic: No Adenopathy Results Lab Laboratory Tests 11/05/20 15:00: Glucometer 170H Microbiology 11/04/20 MRSA Screen - Final, Complete MRSA not isolated Assessment/Plan Assessment/Plan Assess & Plan/Chief Complaint s/p lap appendectomy for perf appendicitis. ambulate. increase diet. transfer when criteria met. AMMON GUAJARDO MD Nov 06, 2020 11:03
[2020-11-06] MEDS ORDERED: NS IV 500 ML 500 ML ONE (16:49)
[2020-11-06] MEDS ORDERED: NS (IVPB) 500 ML IV ONE (17:00)
[2020-11-07] MEDS: fentaNYL INJ 100 MCG/2 ML AMP IV PRN ×2 (00:54→10:51)
[2020-11-07] MEDS: PIPERACILLIN/TAZO 4.5 GM/NS 100 ML IV SCH ×8 (00:55→23:09)
[2020-11-07] MEDS: NS IV 1000 ML 1,000 ML IV SCH ×3 (03:22→23:02)
[2020-11-07 03:33] VITALS: BP 115/64
[2020-11-07 07:22] VITALS: BP 125/82
[2020-11-07 08:48] LABS: BASOPHILS % (AUTO) 0 % (0-10); EOSINOPHILS % (AUTO) 0 % (0-10); HEMATOCRIT 44 % (35-52); HEMOGLOBIN 14.1 g/dL (11.5-16.0); LYMPHOCYTES # (AUTO) 0.6 10^3/uL (1.0-4.0); LYMPHOCYTES % (AUTO) 5 % (12-44); MEAN CORPUSCULAR HEMOGLOBIN 29 pg (25-34); MEAN CORPUSCULAR HGB CONC 32 g/dL (32-36); MEAN CORPUSCULAR VOLUME 92 fL (80-99); MEAN PLATELET VOLUME 11.5 fL (9.0-12.2); MONOCYTES # (AUTO) 0.7 10^3/uL (0.0-1.0); MONOCYTES % (AUTO) 5 % (0-12); NEUTROPHILS # (AUTO) 12.2 10^3/uL (1.8-7.8); NEUTROPHILS % (AUTO) 89 % (42-75); PLATELET COUNT 208 10^3/uL (130-400); WHITE BLOOD COUNT 13.8 10^3/uL (4.3-11.0)
[2020-11-07 09:09] LABS: CALCIUM 8.2 MG/DL (8.5-10.1); CREATININE SERUM 0.72 MG/DL (0.60-1.30); POTASSIUM 3.1 MMOL/L (3.6-5.0)
--- NOTE | 2020-11-07 09:14 | Progress Note - Surgery ---
JAZMINE MUNOZ 11/07/20 0914: Subjective Date Seen by a Provider: Nov 07, 2020 Time Seen by a Provider: 07:39 Subjective/Events-last exam Pt is SP appy 2days. Pt is resting in bed eating a normal diet. Communication is difficult do to a language barrier and possible mild dementia. - unable to obtain ROS Her incision site is clean and serious sanguineous fluid is present in the drain. She does have diffuse abdominal pain with guarding. Objective Exam Vital Signs Date Time Temp Pulse Resp B/P (MAP) Pulse Ox O2 Delivery O2 Flow Rate FiO2 11/07/20 07:22 36.4 119 18 125/82 (96) 96 Room Air 11/07/20 03:33 36.2 115 18 115/64 (81) 95 Room Air 11/06/20 23:38 36.5 76 18 120/81 (94) 94 Room Air 11/06/20 20:30 Room Air 11/06/20 19:20 37.2 112 18 141/67 (91) 96 Room Air 11/06/20 16:37 142/80 (100) 11/06/20 15:50 36.4 114 18 176/86 (116) 96 Room Air 11/06/20 12:00 37.2 102 20 134/75 (94) 98 Room Air I & O 11/07/20 07:00 Intake Total 2000 ml Output Total 1720 ml Balance 280 ml Capillary Refill : General Appearance: No Apparent Distress, WD/WN HEENT: PERRL/EOMI, Pharynx Normal Neck: Full Range of Motion Respiratory: Chest Non Tender, Lungs Clear Cardiovascular: Regular Rate, Rhythm, No Gallop, No Murmur, Normal Peripheral Pulses Peripheral Pulses: 2+ Radial Pulses (R), 2+ Radial Pulses (L) Gastrointestinal: normal bowel sounds, tenderness Extremity: Normal Capillary Refill, Normal Range of Motion Neurologic/Psychiatric: Alert Skin: Normal Color, Warm/Dry Lymphatic: No Adenopathy (axillary or cervical) Results Lab Laboratory Tests 11/07/20 08:25: White Blood Count 13.8H, Red Blood Count 4.80, Hemoglobin 14.1, Hematocrit 44, Mean Corpuscular Volume 92, Mean Corpuscular Hemoglobin 29, Mean Corpuscular Hemoglobin Concent 32, Red Cell Distribution Width 13.3, Platelet Count 208, Sarah n Platelet Volume 11.5, Immature Granulocyte % (Auto) 1, Neutrophils (%) (Auto) 89H, Lymphocytes (%) (Auto) 5L, Monocytes (%) (Auto) 5, Eosinophils (%) (Auto) 0, Basophils (%) (Auto) 0, Neutrophils # (Auto) 12.2H, Lymphocytes # (Auto) 0.6L , Monocytes # (Auto) 0.7, Eosinophils # (Auto) 0.0, Basophils # (Auto) 0.0, Immature Granulocyte # (Auto) 0.1 Microbiology 11/04/20 MRSA Screen - Final, Complete MRSA not isolated 11/04/20 Urine Culture - Final, Complete NO GROWTH Assessment/Plan Assessment/Plan Assessment/Plan s/p lap appendectomy for perf appendicitis. ambulate and continue normal diet as tolerated. JAGJIT LOERA DO 11/07/20 1112: Subjective Time Seen by a Provider: 09:40 Subjective/Events-last exam Pt seen and examined, she is non-communicative. Review of Systems unable to obtain Objective Exam General Appearance: No Apparent Distress Respiratory: Lungs Clear, Normal Breath Sounds, No Accessory Muscle Use, No Respiratory Distress Cardiovascular: Regular Rate, Rhythm, No Murmur Gastrointestinal: distended, tenderness (diffusely), other (BRUCE serous fluid, copious amount) Assessment/Plan Assessment/Plan Assessment/Plan s/p lap appendectomy for perf appendicitis. Pt has distended abdomen and increased BRUCE output; however, it is serous and her WBC is going down. Will monitor this, may need another CT scan to look; but will look bad because of recent surgery. Will also try to contact DPOA to find out pt's baseline. 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 Will try diet as tolerated, may need to do Dulcolax enema if she doesn't start having BMs. Supervisory-Addendum Brief Verification & Attestation Participated in pt care: history, MDM, physical Personally performed: exam, history, MDM, supervision of care Care discussed with: Medical Student Procedures: n/a Verification and Attestation of Medical Student E/M Service A medical student performed and documented this service. I then reviewed and verified all information documented by the medical student and made modifications to such information, when appropriate. I personally performed a physical exam, medical decision making and then discussed any differences between the notes and made revisions as necessary to create one note. Jagjit Loera , 11/07/20 , 11:12 JAZMINE MUNOZ Nov 07, 2020 09:14 JAGJIT LOERA DO Nov 07, 2020 11:12
[2020-11-07 11:53] VITALS: BP 154/86
[2020-11-07 15:45] VITALS: BP 139/87
[2020-11-07 19:41] VITALS: BP 126/88
[2020-11-07 23:08] VITALS: BP 122/68
[2020-11-08 04:03] VITALS: BP 126/71
[2020-11-08] MEDS: PIPERACILLIN/TAZO 4.5 GM/NS 100 ML IV SCH ×6 (06:08→22:43)
[2020-11-08 07:23] VITALS: BP 162/74
[2020-11-08] MEDS: HYDROcodone/APAP 7.5 MG/325 MG (LORTAB, LORCET PLUS) TABLET PO PRN (10:16)
[2020-11-08] MEDS: NS IV 1000 ML 1,000 ML IV SCH ×2 (10:17→23:00)
--- NOTE | 2020-11-08 10:20 | Progress Note - Surgery ---
NELAOCTAVIOJAZMINE WILLIS 11/08/20 1020: Subjective Date Seen by a Provider: Nov 08, 2020 Time Seen by a Provider: 09:06 Subjective/Events-last exam Pt is SP appy 3 days. Pt is resting in bed eating a normal diet. Communication is difficult do to a language barrier and possible mild dementia. - unable to obtain ROS Her incision site is clean and serious sanguineous fluid is present in the drain. She does have diffuse abdominal pain with distention and guarding. She is urinating regularly, but no BM since surgery. Objective Exam Vital Signs Date Time Temp Pulse Resp B/P (MAP) Pulse Ox O2 Delivery O2 Flow Rate FiO2 11/08/20 07:23 36.3 107 18 162/74 (103) 94 Room Air 11/08/20 04:03 36.7 100 20 126/71 (89) 93 Room Air 11/07/20 23:08 36.5 100 20 122/68 (86) 95 Room Air 11/07/20 20:10 Room Air 11/07/20 19:41 37.2 122 18 126/88 (101) 95 Room Air 11/07/20 15:45 36.8 107 20 139/87 (104) 96 Room Air 11/07/20 11:53 36.8 118 20 154/86 (108) 94 Room Air I & O 11/08/20 07:00 Intake Total 3530 ml Output Total 1240 ml Balance 2290 ml Capillary Refill : General Appearance: No Apparent Distress, WD/WN HEENT: PERRL/EOMI, Pharynx Normal Neck: Full Range of Motion, Supple Respiratory: Lungs Clear, Normal Breath Sounds, No Accessory Muscle Use, No Respiratory Distress Cardiovascular: Regular Rate, Rhythm, No Murmur, Normal Peripheral Pulses, Tachycardia Peripheral Pulses: 2+ Radial Pulses (R), 2+ Radial Pulses (L) Gastrointestinal: distended, tenderness (diffusely), other (BRUCE serous fluid, copious amount) Extremity: Normal Capillary Refill, Normal Range of Motion, No Calf Tenderness, Pedal Edema Neurologic/Psychiatric: Alert Skin: Normal Color, Warm/Dry Lymphatic: No Adenopathy (axillary or cervical) Results Lab Microbiology 11/04/20 MRSA Screen - Final, Complete MRSA not isolated 11/04/20 Urine Culture - Final, Complete NO GROWTH Assessment/Plan Assessment/Plan Assessment/Plan s/p lap appendectomy for perf appendicitis. Pt has distended abdomen and increased BRUCE output; however, it is serous and her WBC is going down. May need to do Dulcolax enema if she doesn't start having BMs. JAGJIT LOERA DO 11/08/20 1222: Subjective Time Seen by a Provider: 10:59 Subjective/Events-last exam Pt seen and examined, still not communicative. Nurse states pt has not had BM yet. Does not appear to be in any distress. Review of Systems unable to obtain Objective Exam General Appearance: No Apparent Distress, WD/WN Respiratory: Lungs Clear, Normal Breath Sounds, No Accessory Muscle Use, No Respiratory Distress Cardiovascular: Regular Rate, Rhythm, No Murmur Gastrointestinal: soft, distended, tenderness (diffusely with palpation), other (BRUCE serous fluid, copious amount) Assessment/Plan Assessment/Plan Assessment/Plan s/p lap appendectomy for perf appendicitis. Pt has distended abdomen and increased BRUCE output; however, it is serous and her WBC is going down. May need to do Dulcolax and/or enema if she doesn't start having BMs. Supervisory-Addendum Brief Verification & Attestation Participated in pt care: history, MDM, physical Personally performed: exam, history, MDM, supervision of care Care discussed with: Medical Student Procedures: n/a Verification and Attestation of Medical Student E/M Service A medical student performed and documented this service. I then reviewed and verified all information documented by the medical student and made modifications to such information, when appropriate. I personally performed a physical exam, medical decision making and then discussed any differences between the notes and made revisions as necessary to create one note. Jagjit Loera , 11/08/20 , 12:22 JAZMINE MUNOZ Nov 08, 2020 10:20 JAGJIT LOERA DO Nov 08, 2020 12:22
[2020-11-08 11:21] VITALS: BP 140/76
[2020-11-08] MEDS ORDERED: BISACODYL 10 MG SUPP (DULCOLAX) PR ONE (12:30)
[2020-11-08 15:40] VITALS: BP 134/73
[2020-11-08 20:00] VITALS: BP 166/79
[2020-11-08 23:24] VITALS: BP 121/63
[2020-11-09 04:25] VITALS: BP 143/67
[2020-11-09] MEDS: NS IV 1000 ML 1,000 ML IV SCH (06:15)
[2020-11-09] MEDS: PIPERACILLIN/TAZO 4.5 GM/NS 100 ML IV SCH ×2 (06:15)
[2020-11-09 08:00] VITALS: BP 158/74
[2020-11-09] MEDS: HYDROcodone/APAP 7.5 MG/325 MG (LORTAB, LORCET PLUS) TABLET PO PRN (10:25)
[2020-11-09 12:00] VITALS: BP 142/68
[2020-11-09 13:10] VITALS: BP 142/68
[2020-11-10] MEDS ORDERED: AMOX-358 PO (08:41)
[2020-11-10] MEDS ORDERED: ACHD5005 PO (08:41)
[2020-11-10] MEDS ORDERED: ALPR0.254 PO (08:41)
== END 2020-11-09 13:10 | disposition home or self-care (01) ==
LOC: EDUNIT# 13:22 → ER FS 13:23 → 4TH 19:07
PROVIDERS: ADMIT Surgery; ATTEND Surgery
DX: K35.32 Acute appendicitis with perforation, localized peritonitis, and gangrene, without abscess (principal); E11.9 Type 2 diabetes mellitus without complications; I10 Essential (primary) hypertension; I69.351 Hemiplegia and hemiparesis following cerebral infarction affecting right dominant side; F41.9 Anxiety disorder, unspecified; E78.00 Pure hypercholesterolemia, unspecified; M81.0 Age-related osteoporosis without current pathological fracture; Z79.899 Other long term (current) drug therapy; Z79.84 Long term (current) use of oral hypoglycemic drugs
CPT/HCPCS: 36415; 44970; 51701; 74177; 80048; 80053; 81000; 82947; 83690; 85007; 85025; 85027; 87081; 87088; 88304; 96361; 96374; 96375; 99284; G0378

== ENCOUNTER 2020-11-10 01:41 | Inpatient (IN) | payer MEDICARE ==
[~2020-11-10] VITALS: Ht 162 cm; Wt 60.4 kg
[~2020-11-10 01:41] MED LIST changes: +ACET-2840 PO; +ALPR0.25 PO; +AMOX-358 PO; +CHOL100048 PO; +DIVA125T2 PO; +DIVA250T2 PO; +LIDO-11 TP; +MAGN400O7 PO; +METF-397 PO; +ONDA-105 PO; +OXYB5TAB13 PO; +VENL75TA2 PO; +VNL75T PO; +ZINC50TA58 PO
[2020-11-10] MEDS ORDERED: LACTATED RINGERS 1,000 ML IV ONE (02:00)
[2020-11-10 02:02] LABS: BASOPHILS # (AUTO) 0.1 10^3/uL (0.0-0.1); BASOPHILS % (AUTO) 1 % (0-10); EOSINOPHILS # (AUTO) 0.2 10^3/uL (0.0-0.3); EOSINOPHILS % (AUTO) 1 % (0-10); HEMATOCRIT 37 % (35-52); HEMOGLOBIN 12.5 g/dL (11.5-16.0); LYMPHOCYTES # (AUTO) 1.8 10^3/uL (1.0-4.0); LYMPHOCYTES % (AUTO) 14 % (12-44); MEAN CORPUSCULAR HEMOGLOBIN 30 pg (25-34); MEAN CORPUSCULAR HGB CONC 34 g/dL (32-36); MEAN CORPUSCULAR VOLUME 89 fL (80-99); MEAN PLATELET VOLUME 10.2 fL (9.0-12.2); MONOCYTES # (AUTO) 0.6 10^3/uL (0.0-1.0); MONOCYTES % (AUTO) 5 % (0-12); NEUTROPHILS # (AUTO) 9.6 10^3/uL (1.8-7.8); NEUTROPHILS % (AUTO) 74 % (42-75); PLATELET COUNT 261 10^3/uL (130-400); WHITE BLOOD COUNT 12.9 10^3/uL (4.3-11.0)
--- NOTE | 2020-11-10 02:11 | ED Abdominal Pain ---
General Chief Complaint: Abdominal/GI Problems Stated Complaint: ABD PAIN Nursing Triage Note: PT PRESENTS TO THE ED FROM [facility] F[facility] THAT SPECIALIZES IN DEMENTIA CARE OUT OF [place]. PT HAD AN APPENDECTOMY MONDAY, WAS DISCHARGED TO THE LTC FACILITY FROM THIS HOSPITAL THIS AFTERNOON. STAFF AT LT FACILITY CONTACTED EMS BECAUSE THE PATIENT HAS BEEN PULLING AT HER DRAINAGE TUBE AND SCREAMING. PT ARRIVES TO THE ED COOPERATIVE AND IN NO APPARENT DISTRESS Source of Information: EMS, Old Records Exam Limitations: Other (PT IS LIMITED HISTORIAN--PT WITH MILD DEMENTIA; PT DOES SPEAK SOME LIMITED [place], BUT APPEARS TO UNDERSTAND [place]. ; NO CALL FROM [facility]) History of Present Illness Date Seen by Provider: Nov 10, 2020 Time Seen by Provider: 01:42 Initial Comments PT ARRIVES VIA [facility] FROM [facility] IN [place] PT WAS ADMITTED HERE 11/04/20 FOR APPENDICITIS WITH PERFORATION, AND DISMISSED THIS AFTERNOON SURGERY WAS DONE BY DR. GUAJARDO, BUT DISMISSED BY DR. SWENSON. PT HAS BRUCE DRAIN IN PLACE [facility] STAFF CALLED EMS BECAUSE PT C/O ABDOMINAL PAIN TONIGHT PT HAS HAD ONE DOSE OF PAIN MEDICATION SINCE SHE HAS BEEN BACK AT [facility], AFTER DISMISSAL THIS AFTERNOON--HAD 1 HYDROCODONE AT 2130. ASKED PT ON ARRIVAL HOW SHE WAS FEELING AND SHE STATES "I AM FINE" PT IS UNABLE TO STATE IF SHE HAS HAD A BM OR IF SHE HAS BEEN PASSING GAS NO OTHER INFORMATION IS KNOWN/OBTAINABLE AT THIS TIME. PT VOICES NO COMPLAINTS AT THIS TIME. PT KNOWS NAME, AGE, AND KNOWS SHE IS IN A HOSPITAL PCP: DR. ESTRELLA Allergies and Home Medications Allergies Coded Allergies: No Known Drug Allergies (Verified , 04/29/15) Patient Home Medication List Home Medication List Reviewed: Yes Acetaminophen (Tylenol 8 Hour) 650 Mg Tablet.er, 650 MG PO Q6H PRN for PAIN-MILD (1-4), (Reported) Entered as Reported by: RASHID ODEN on 11/05/20 1203 Alprazolam (Xanax) 0.25 Mg Tablet, 0.125 MG PO Q8H PRN for ANXIETY/RESTLESSNESS, (Reported) Entered as Reported by: RASHID ODEN on 11/05/20 1202 Amoxicillin/Potassium Clav (Augmentin 875-125 Tablet) 1 Each Tablet, 1 EACH PO BID Prescribed by: AMMON GUAJARDO on 11/05/20 1444 Cholecalciferol (Vitamin D3) (Vitamin D3) 25 Mcg Capsule, 50 MCG PO DAILY, (Reported) Entered as Reported by: RASHID ODEN on 11/05/20 1202 Divalproex Sodium (Depakote) 250 Mg Tablet.dr, 250 MG PO HS, (Reported) Entered as Reported by: RASHID ODEN on 11/05/20 1210 Hydrocodone/Acetaminophen (Hydrocodone-Acetamin 5-325 mg) 1 Each Tablet, 1 TAB PO Q4H PRN for PAIN-MODERATE (5-7) Prescribed by: AMMON GUAJARDO on 11/05/20 1444 Magnesium Hydroxide (Milk of Magnesia) 400 Mg/5 Ml Oral.susp, 30 ML PO DAILY PRN for CONSTIPATION-7TH LINE, (Reported) Entered as Reported by: RASHID ODEN on 11/05/20 1203 Meclizine HCl (Meclizine HCl) 25 Mg Tablet, 25 MG PO Q8H PRN for DIZZINESS, (Reported) Entered as Reported by: RASHID ODEN on 11/05/20 120 Metformin HCl (Metformin HCl) 500 Mg Tablet, 500 MG PO DAILY, (Reported) Entered as Reported by: RASHID ODEN on 11/05/20 120 Metoprolol Succinate (Metoprolol Succinate) 25 Mg Tab.er.24h, 25 MG PO DAILY, (Reported) Entered as Reported by: RASHID ODEN on 11/05/20 1203 Ondansetron HCl (Ondansetron HCl) 4 Mg Tablet, 4 MG PO Q4H PRN for NAUSEA/VOMITING-1ST LINE, (Reported) Entered as Reported by: RASHID ODEN on 11/05/20 120 Oxybutynin Chloride (Oxybutynin Chloride) 5 Mg Tablet, 5 MG PO DAILY, (Reported) Entered as Reported by: RASHID ODEN on 11/05/20 120 Rosuvastatin Calcium (Crestor) 10 Mg Tablet, 10 MG PO HS, (Reported) Entered as Reported by: RASHID ODEN on 11/05/20 1203 Venlafaxine HCl (Venlafaxine HCl ER) 75 Mg Tab.er.24, 75 MG PO DAILY, (Reported) Entered as Reported by: RASHID ODEN on 11/05/20 1210 Zinc (Zinc) 50 Mg Tablet, 50 MG PO DAILY, (Reported) Entered as Reported by: RASHID ODEN on 11/05/20 1203 lidocaine HCL (lidocaine HCL) 1 Each Adh..patch, 1 EACH TP DAILY, (Reported) Entered as Reported by: RASHID ODEN on 11/05/20 1203 Discontinued Medications Acetaminophen (Acetaminophen) 325 Mg Tablet, 650 MG PO Q6H PRN for PAIN-MILD (1- 4) Discontinued Reason: Duplicate Order Prescribed by: NICANOR ESTRELLA on 10/24/19 1318 Divalproex Sodium (Depakote) 125 Mg Tablet.dr, 125 MG PO, (Reported) Discontinued Reason: Prescription changed Entered as Reported by: RASHID ODEN on 11/05/20 1202 Meclizine HCl (Meclizine HCl) 25 Mg Tablet, 25 MG PO TID PRN for DIZZINESS, (Reported) Discontinued Reason: Duplicate Order Entered as Reported by: PHILLIP COTTER on 10/17/18 0915 Metformin HCl (Metformin HCl ER) 500 Mg Tab.er.24, 500 MG PO DAILY Discontinued Reason: Duplicate Order Prescribed by: NICANOR ESTRELLA on 10/24/19 1505 Metoprolol Succinate (Metoprolol Succinate) 25 Mg Tab.er.24h, 25 MG PO DAILY, (Reported) Discontinued Reason: Duplicate Order Entered as Reported by: RASHID ODEN on 10/22/19 1319 Ondansetron (Ondansetron Odt) 4 Mg Tab.rapdis, 4 MG PO Q4H Discontinued Reason: Duplicate Order Prescribed by: NICANOR ESTRELLA on 10/24/19 1318 Rosuvastatin Calcium (Crestor) 10 Mg Tablet, 10 MG PO HS, (Reported) Discontinued Reason: Duplicate Order Entered as Reported by: PHILLIP COTTER on 10/17/18 0915 [Lidocaine 4% Patch] 1 EA PATCH, 2 EA TOP DAILY Discontinued Reason: Duplicate Order Prescribed by: NICANOR ESTRELLA on 10/24/19 1318 Review of Systems Review of Systems Constitutional: other (UNABLE TO OBTAIN RELIABLE INFORMATION FROM PT) Gastrointestinal: See HPI Past Xtprrhx-Grvegr-Ycqexm Hx Immunizations Up To Date Tetanus Booster (TDap): More than 5yrs First/Initial COVID19 Vaccinat: UNKNOWN Second COVID19 Vaccination Scott: UNKNOWN Seasonal Allergies Seasonal Allergies: No Past Medical History Surgery/Hospitalization HX: -APPENDECTOMY / PERFORATED APPENDIX 11/04/[address] GUAJARDO -RIGHT HIP FRACTURE/ORIF 10/[address] PEÑA HERNANDEZ -FALL WITH SKULL/TEMPORAL BONE FRACTURE AND INTRACRANIAL BLEED/SUBARACHNOID BLEED 12/2017--SENT TO [place], NO SURGERY. 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 Diabetes Physical Exam Vital Signs Vital Signs - First Documented 11/10/20 01:47 Temp 36.5 Pulse 93 Resp 24 B/P (MAP) 165/83 (110) Pulse Ox 96 O2 Delivery Room Air Capillary Refill : Less Than 3 Seconds Height/Weight/BMI Height: 5'0.00" Weight: 118lbs. 1.0oz. [id number]; 20.00 BMI Method:Stated General Appearance: WD/WN, no apparent distress, other (DOES NOT APPEAR TO BE IN ANY DISCOMFORT OR DISTRESS WHATSOEVER) Respiratory: normal breath sounds, no respiratory distress, no accessory muscle use Cardiovascular: regular rate, rhythm Gastrointestinal: abnormal bowel sounds, distended, other (ABDOMEN FIRM AND DISTENDED, PT DOES NOT COMPLAIN OF PAIN ON PALPATION. INCISIONS CLEAN/DRY/INTACT. BRUCE DRIAIN IN SUPRAPUBIC AREA WITH 20 ML OF SEROSANGUINOUS FLUID. NO BOWEL SOUNDS NOTED AT THIS TIME. ) Extremities: normal inspection Back: no CVA tenderness Neurologic/Psychiatric: no motor/sensory deficits, alert, normal mood/affect Skin: normal color, warm/dry Progress/Results/Core Measures Results/Orders Lab Results Laboratory Tests Test 11/10/20 01:56 11/10/20 02:28 Range/Units White Blood Count 12.9 H 4.3-11.0 10^3/uL Red Blood Count 4.16 3.80-5.11 10^6/uL Hemoglobin 12.5 11.5-16.0 g/dL Hematocrit 37 35-52 % Mean Corpuscular Volume 89 80-99 fL Mean Corpuscular Hemoglobin 30 25-34 pg Mean Corpuscular Hemoglobin Concent 34 32-36 g/dL Red Cell Distribution Width 13.2 10.0-14.5 % Platelet Count 261 130-400 10^3/uL Mean Platelet Volume 10.2 9.0-12.2 fL Immature Granulocyte % (Auto) 6 % Neutrophils (%) (Auto) 74 42-75 % Lymphocytes (%) (Auto) 14 12-44 % Monocytes (%) (Auto) 5 0-12 % Eosinophils (%) (Auto) 1 0-10 % Basophils (%) (Auto) 1 0-10 % Neutrophils # (Auto) 9.6 H 1.8-7.8 10^3/uL Lymphocytes # (Auto) 1.8 1.0-4.0 10^3/uL Monocytes # (Auto) 0.6 0.0-1.0 10^3/uL Eosinophils # (Auto) 0.2 0.0-0.3 10^3/uL Basophils # (Auto) 0.1 0.0-0.1 10^3/uL Immature Granulocyte # (Auto) 0.7 H 0.0-0.1 10^3/uL Sodium Level 138 135-145 MMOL/L Potassium Level 2.7 L 3.6-5.0 MMOL/L Chloride Level 104 98-107 MMOL/L Carbon Dioxide Level 24 21-32 MMOL/L Anion Gap 10 5-14 MMOL/L Blood Urea Nitrogen 9 7-18 MG/DL Creatinine 0.62 0.60-1.30 MG/DL Estimat Glomerular Filtration Rate 94 BUN/Creatinine Ratio 15 Glucose Level 138 H 70-105 MG/DL Calcium Level 7.9 L 8.5-10.1 MG/DL Corrected Calcium 9.2 8.5-10.1 MG/DL Total Bilirubin 0.3 0.1-1.0 MG/DL Aspartate Amino Transf (AST/SGOT) 36 H 5-34 U/L Alanine Aminotransferase (ALT/SGPT) 70 H 0-55 U/L Alkaline Phosphatase 85 40-136 U/L Total Protein 5.3 L 6.4-8.2 GM/DL Albumin 2.4 L 3.2-4.5 GM/DL Valproic Acid (Depakene) Level 12.3 L 50.0-100.0 UG/ML Urine Color YELLOW Urine Clarity CLEAR Urine pH 6.0 5-9 Urine Specific [place]and 1.020 1.016-1.022 Urine Protein NEGATIVE NEGATIVE Urine Glucose (UA) NEGATIVE NEGATIVE Urine Ketones NEGATIVE NEGATIVE Urine Nitrite NEGATIVE NEGATIVE Urine Bilirubin NEGATIVE NEGATIVE Urine Urobilinogen 1.0 < = 1.0 MG/DL Urine Leukocyte Esterase NEGATIVE NEGATIVE Urine RBC (Auto) NEGATIVE NEGATIVE Urine RBC NONE /HPF Urine WBC NONE /HPF Urine Squamous Epithelial Cells 0-2 /HPF Urine Crystals NONE /LPF Urine Bacteria NEGATIVE /HPF Urine Casts NONE /LPF Urine Mucus SMALL H /LPF Urine Culture Indicated NO My Orders Orders - LLUVIA RAMIREZ DO Ed Iv/Invasive Line Start (11/10/20 01:49) Catheter(Urinary) Insert & Ass 03,15 (11/10/20 01:49) Monitor-Rhythm Ecg Trace Only (11/10/20 01:49) Ct Abdomen/Pelvis Wo (11/10/20 01:49) Cbc With Automated Diff (11/10/20 01:49) Comprehensive Metabolic Panel (11/10/20 01:49) Ua Culture If Indicated (11/10/20 01:49) Ed Iv/Invasive Line Start (11/10/20 01:49) Lactated Ringers (Lr 1000 Ml Iv Solution (11/10/20 02:00) Valproic Acid (11/10/20 01:56) D5 1/2 Ns W/Kcl 20 Meq/L (Dextrose 5%/0. (11/10/20 02:45) Fentanyl Inj (Sublimaze Injection) (11/10/20 03:00) Fentanyl Inj (Sublimaze Injection) (11/10/20 04:15) Ng Tube Insert & Assessment (11/10/20 04:25) Medications Given in ED Current Medications Medications Dose Ordered Sig/Angelica Route Start Time Stop Time Status Last Admin Dose Admin Fentanyl Citrate 25 mcg ONCE ONCE IVP 11/10/20 03:00 11/10/20 03:01 DC 11/10/20 03:22 25 MCG Fentanyl Citrate 50 mcg ONCE ONCE IVP 11/10/20 04:15 11/10/20 04:16 DC 11/10/20 04:18 50 MCG Lactated Ringer's 1,000 ml @ 0 mls/hr Q0M ONCE IV 11/10/20 02:00 11/10/20 02:01 DC 11/10/20 02:32 1,000 MLS/HR Vital Signs/I&O 11/10/20 01:47 Temp 36.5 Pulse 93 Resp 24 B/P (MAP) 165/83 (110) Pulse Ox 96 O2 Delivery Room Air Blood Pressure Mean: 110 Progress Progress Note : Progress Note DURING ER STAY, I AGAIN ASKED PT HOW SHE WAS FEELING AND AGAIN SHE SAYS "I AM FINE" PT DENIES NAUSEA, BUT LATER ADMITS TO HAVING SOME ABDOMINAL PAIN--FENTANYL ORDERED. ALSO GAVE IV FLUIDS PT SLEPT AND RESTED QUIETLY FOR MOST OF THE ER STAY---UNTIL AROUND 0400, THEN PT BEGAN TO ACTIVELY COMPLAIN OF PAIN AND IS MOANING CONTINUOUSLY. VITALS STABLE NG TUBE PLACED, WITH RETURN OF SMALL AMOUNT OF GASTRIC FLUID, PT VERY UNCOOPERATIVE FOR THIS. PLACEMENT CONFIRMED BY XRAY. 0529--PT HAS PULLED OUT NG TUBE MARKED DELAY IN OBTAINING CT REPORT Diagnostic Imaging Comments CT ABDOMEN/PELVIS--PER [facility] VIA FAX AT 0417 DILATED SMALL BOWEL, MEASURING UP TO 3.3 CM DILATED-CONCERNING FOR SMALL BOWEL OBSTRUCTION. SMALL BOWEL IS DECOMPRESSED IN RLQ. POST OP CHANGES NOTED. Reviewed: Reviewed by Me Departure Communication (Admissions) 0418--SPOKE WITH DR. ECHOLS, SURGEON TELECOMMUNICATION LINES REPAIRER, ADVISES TO ADMIT TO DR. SWENSON, AND PLACE NG TUBE Impression Primary Impression: S/P APPENDECTOMY FOR APPENDICITIS WITH PERFORATION Additional Impressions: Small bowel obstruction Hypokalemia Dementia Disposition: ADMITTED INPATIENT Condition: Stable Admissions Decision to Admit Reason: Admit from ER (General) Decision to Admit/Date: Nov 10, 2020 Time/Decision to Admit Time: 04:20 Departure-Patient Inst. Referrals: NICANOR ESTRELLA DO (PCP/Family) Primary Care Physician LLUVIA RAMIREZ DO Nov 10, 2020 02:11
[2020-11-10 02:16] LABS: ALBUMIN 2.4 GM/DL (3.2-4.5)
[2020-11-10 02:17] LABS: POTASSIUM 2.7 MMOL/L (3.6-5.0)
[2020-11-10 02:18] LABS: CALCIUM 7.9 MG/DL (8.5-10.1)
[2020-11-10 02:19] LABS: TOTAL PROTEIN 5.3 GM/DL (6.4-8.2)
[2020-11-10 02:21] LABS: BILIRUBIN,TOTAL 0.3 MG/DL (0.1-1.0)
[2020-11-10 02:22] LABS: CREATININE SERUM 0.62 MG/DL (0.60-1.30)
[2020-11-10 02:31] LABS: VALPROIC ACID 12.3 UG/ML (50.0-100.0)
[2020-11-10 02:35] LABS: BILIRUBIN,URINE NEGATIVE (NEGATIVE); CLARITY,URINE CLEAR; COLOR,URINE YELLOW; GLUCOSE, URINE (UA) NEGATIVE (NEGATIVE); KETONES,URINE NEGATIVE (NEGATIVE); LEUKOCYTE ESTERASE ,URINE NEGATIVE (NEGATIVE); NITRITE,URINE NEGATIVE (NEGATIVE); PROTEIN,URINE NEGATIVE (NEGATIVE)
[2020-11-10 02:40] LABS: BACTERIA,URINE NEGATIVE /HPF; SQUAMOUS EPITHELIAL CELL,UR 0-2 /HPF
[2020-11-10] MEDS ORDERED: D5 1/2 NS W/KCL 20 MEQ/L 1,000 ML IV SCH (02:45)
[2020-11-10] MEDS ORDERED: fentaNYL INJ 100 MCG/2 ML AMP IVP ONE ×3 (03:00→05:15)
[2020-11-10] MEDS ORDERED: HURRICAINE EXT TUBE (BENZOCAINE) ONE (04:38)
[2020-11-10] MEDS ORDERED: fentaNYL INJ 100 MCG/2 ML AMP ONE (05:05)
--- NOTE | 2020-11-10 06:16 | Diagnostic Imaging Report ---
INDICATION: CHECK NG TUBE PLACEMENT. TECHNIQUE: Single view chest 5:10 AM. CORRELATION STUDY: 11/03/2020 FINDINGS: Gastric tube is in place tip in the right upper quadrant likely in the distal stomach approaching the duodenum. There is prominent gas-filled loops of bowel noted in the upper abdomen. Heart size and mediastinal vasculature within normal limits. Lung dior overall are clear. IMPRESSION: 1. Negative for acute abnormality of the chest. 2. Gastric tube tip in the right upper quadrant likely in the distal stomach approaching the duodenum. Gas-filled loops of small bowel are present raising concern for potential obstruction. Dictated by: Dictated on workstation # [id number]
[2020-11-10 06:43] VITALS: BP 148/85
--- NOTE | 2020-11-10 07:08 | Diagnostic Imaging Report ---
PROCEDURE: CT abdomen and pelvis without contrast. TECHNIQUE: Multiple contiguous axial images were obtained through the abdomen and pelvis without the use of intravenous contrast. Auto Exposure Controls were utilized during the CT exam to meet ALARA standards for radiation dose reduction. INDICATION: Post recent appendectomy. History of dementia. Now pulling at drainage tube and screening. CORRELATION STUDY: 11/04/2020 FINDINGS: Examination compromised by motion artifact. LOWER THORAX: Small bilateral pleural effusions have developed with associated dependent atelectasis. Small pericardial effusion. LIVER: Unremarkable. GALLBLADDER: Present and unremarkable. No bile duct dilatation. SPLEEN: Unremarkable. PANCREAS: Unremarkable. ADRENAL GLANDS: Unremarkable. KIDNEYS: Normal configuration. No calcification or obstruction. ABDOMINAL AORTA: Unremarkable, nonaneurysmal. GASTROINTESTINAL TRACT: Nondilated small bowel is present measuring up to approximately 3.5 cm. Small bowel decompresses in the right lower quadrant. Concerning for small bowel obstruction. Drainage catheter tubing enters the low midline abdomen coils within the right aspect, tip ultimately terminating right upper quadrant just below the gallbladder. There is presence of small amount of pelvic fluid. Definitive encapsulated drainable abscess is not suggested on this unenhanced examination. URINARY BLADDER: Unremarkable. REPRODUCTIVE: Uterus appearing unremarkable. OSSEOUS STRUCTURES: 3 pins transfix the proximal right femur. OTHER: Some generalized soft tissue edema consistent with 3rd spacing. IMPRESSION: 1. Rather prominent dilated loops of small bowel. What appears to be some decompression distally which would favor probable obstruction, this could also be owing to a profound postoperative ileus. If indicated, small bowel follow-through study may be additional diagnostic utility. 2. Drainage catheter is noted tip ultimately terminating right upper quadrant. 3. Pelvic fluid. No definitive encapsulated drainable abscess at this time. 4. Development of small pleural effusions along with some generalized 3rd spacing. Small pericardial effusion. Dictated by: Dictated on workstation # [id number]
[2020-11-10] MEDS ORDERED: CATHETER FLUSH 10 ML SYR IV PRN (07:15)
[2020-11-10 08:00] VITALS: BP 157/75
[2020-11-10] MEDS ORDERED: ALPR0.254 PO (08:41)
[2020-11-10] MEDS ORDERED: AMOX-358 PO (08:41)
[2020-11-10] MEDS ORDERED: ACHD5005 PO (08:41)
[2020-11-10] MEDS: fentaNYL INJ 100 MCG/2 ML AMP IV PRN (09:17)
[2020-11-10] MEDS: D5 1/2 NS W/KCL 20 MEQ/L 1,000 ML IV SCH ×3 (09:30→21:19)
--- NOTE | 2020-11-10 10:11 | Diagnostic Imaging Report ---
INDICATION: NG tube placement COMPARISON: Imaging from the same date TECHNIQUE: Single frontal radiograph the chest dated 11/10/2020 at 0943h. FINDINGS: Enteric catheter is present with the distal tip extending into the body of the stomach with the sidehole near the GE junction. The cardiac silhouette is stable. No significant pulmonary vascular congestion. Developing small left basilar pleural-parenchymal opacity. No pneumothorax. No acute osseous abnormality. Dilated loops of small bowel seen within the upper abdomen. IMPRESSION: Dilated loops of small bowel within the upper abdomen remains concerning for bowel obstruction or potential ileus. Slightly increasing tiny left basilar pleural-parenchymal opacity, related to a combination of pleural fluid with adjacent atelectasis and/or infiltrate. Enteric catheter is present with the distal tip extending into the stomach where the sidehole appears near the GE junction. Dictated by: Dictated on workstation # [id number]
[2020-11-10 12:00] VITALS: BP 147/81
[2020-11-10] MEDS ORDERED: KCL 20 MEQ TAB (K-DUR) PO NR (12:15)
[2020-11-10] MEDS ORDERED: FUROSEMIDE 40 MG/4 ML INJ (LASIX) IVP NR (12:15)
[2020-11-10] MEDS ORDERED: PIPERACILLIN/TAZO 4.5 GM/NS 100 ML IV NR ×2 (12:45)
[2020-11-10] MEDS: POTASSIUM CL 10MEQ/50ML IVPB 50 ML IV SCH ×4 (12:55→16:49)
[2020-11-10] MEDS: METOCLOPRAMIDE INJ 10 MG/2 ML (REGLAN) IVP SCH ×2 (12:55→17:28)
--- NOTE | 2020-11-10 15:06 | HISTORY AND PHYSICAL ---
DATE OF SERVICE: ATTENDING PRIMARY CARE PHYSICIAN: Breanna Sweeney DO HISTORY: The patient is a 75-year-old female known to us. She was discharged home to her residential facility yesterday morning. She has a history of dementia. She presented with abdominal pain and had a CT scan performed, which did show an appendicitis. On 11/05/2020, she underwent a diagnostic laparoscopy and was found to have a perforated acute appendicitis; however, this was contained and no free perforation. A 19-Cuban Ken-Thakur drain was placed. Postoperatively, she was slow to regain function as well as difficulty in communication due to a language barrier as well as dementia. She was able to drink liquids and was able to ambulate some and staff had reported some bowel function. She presented with abdominal pain and distention, early this morning. A CT scan was performed, which did show some dilated loops of small bowel, likely consistent with ileus. At this time, she looks comfortable. At this time, we are unsure if she has had a bowel movement. Upon examination, she does have some abdominal distention. Her RBUCE drain is serosanguineous. PAST MEDICAL HISTORY: Hypertension, hypercholesterolemia, valvular heart disease, history of stroke and subarachnoid hemorrhage, diverticulosis, hiatal hernia, gastroesophageal reflux disease, osteoporosis, diabetes, anxiety. PAST SURGICAL HISTORY: Orthopedic procedure, laparoscopic appendectomy. ALLERGIES: No known drug allergies. MEDICATIONS: Metformin 500 mg daily, metoprolol 25 mg daily, Zofran p.r.n., rosuvastatin 10 mg daily. SOCIAL HISTORY: Negative smoke, negative alcohol. FAMILY HISTORY: Noncontributory. VITAL SIGNS: Temperature 36.1, blood pressure 142/68, pulse 91, respirations 18, pulse ox 93% on room air. REVIEW OF SYSTEMS: Well-nourished female, who does not speak Scottish and is confused. It does not appear that she has any shortness of breath or labored breathing. No cough or sputum production. She does have abdominal distention, unsure if she has had any nausea or vomiting. Also, unsure if she has had a bowel movement. No fever, chills, no recent inadvertent weight loss. All other review of systems negative. PHYSICAL EXAMINATION: CHEST: Decreased breath sounds in bilateral bases. HEART: Regular, no murmurs. EXTREMITIES: +1/3 bilateral lower extremity edema, negative Homans sign. HEENT: No scleral icterus. NECK: No cervical lymphadenopathy. ABDOMEN: Distended with tenderness. Previous incision is clean, dry and intact. BRUCE drain is serous. SKIN: Warm and dry. LABORATORY DATA: WBC 13.8, hemoglobin 14.1, hematocrit 44, platelets 208. Potassium is 3.1. ASSESSMENT AND PLAN: A 75-year-old female with a postoperative ileus secondary to perforated or contained perforated appendicitis, status post laparoscopic appendectomy. We will proceed with IV fluids, correction of electrolytes as well as ambulation and await more significant bowel function. Job ID: [id number] DocumentID: [id number] Dictated Date: 11/10/2020 14:47:04 Finishing Frame Runner Date: 11/10/2020 15:06:02 Dictated By: AMMON GAUJARDO MD
[2020-11-10 16:37] VITALS: BP 130/81
[2020-11-10] MEDS: PIPERACILLIN/TAZOBACTAM (BULK) 4.5 GM in NS (IVPB) 100 ML IV SCH (18:07)
[2020-11-10] MEDS ORDERED: PANTOPRAZOLE 40 MG (PROTONIX) VIAL IV NR (19:15)
--- NOTE | 2020-11-10 19:21 | Consultation ---
History of Present Illness History of Present Illness Patient Consulted On(scott/time) 11/10/20 19:16 Date Seen by Provider: Nov 10, 2020 Time Seen by Provider: 19:16 History of Present Illness This is a 75 year old female who is a resident at a long-term in [facility]. She underwent a laporascopic appendectomy on 11/05/[address] Moncada for a perforated appendicitis. She was discharged yesterday to the [place] but was brought back to the later that night due to pain. She was found to have a post-op ileus vs small bowel obstruction. She was transferred to [facility] and has been admitted to Dr. Moncada. I am asked to consult for medical management. The patient has a know history of dementia with behavior disorder as well as hypertension and diabetes mellitus type II. She has chronic vertigo from a previous cerebellar stroke and is therefore wheelchair bound due to unsteady gait. She is currently resting in bed with occasional groaning due to pain. Allergies and Home Medications Allergies Coded Allergies: No Known Drug Allergies (Verified , 04/29/15) Patient Home Medication List Home Medication List Reviewed: Yes ALPRAZolam (ALPRAZolam) 0.25 Mg Tablet, 0.25 MG PO HS, (Reported) Entered as Reported by: RASHID ODEN on 11/10/2041 Last Action: Reviewed Acetaminophen (Tylenol 8 Hour) 650 Mg Tablet.er, 650 MG PO Q6H PRN for PAIN-MILD (1-4), (Reported) Entered as Reported by: RASHID ODEN on 11/05/20 1203 Last Action: Reviewed Alprazolam (Xanax) 0.25 Mg Tablet, 0.125 MG PO Q8H PRN for ANXIETY/RESTLESSNESS, (Reported) Entered as Reported by: RASHID ODEN on 11/05/201201 Last Action: Reviewed Amoxicillin/Potassium Clav (Augmentin 875-125 Tablet) 1 Each Tablet, 1 EACH PO BID, (Reported) Entered as Reported by: RASHID ODEN on 11/10/2041 Last Action: Reviewed Cholecalciferol (Vitamin D3) (Vitamin D3) 25 Mcg Capsule, 50 MCG PO DAILY, (Reported) Entered as Reported by: RASHID ODEN on 11/05/201201 Last Action: Reviewed Divalproex Sodium (Depakote) 250 Mg Tablet.dr, 250 MG PO HS, (Reported) Entered as Reported by: RASHID ODEN on 11/05/201209 Last Action: Reviewed Hydrocodone/Acetaminophen (Hydrocodone-Acetamin 5-325 mg) 1 Each Tablet, 1 TAB PO Q4H PRN for PAIN-MODERATE (5-7), (Reported) Entered as Reported by: RASHID ODEN on 11/10/20 0841 Last Action: Reviewed Magnesium Hydroxide (Milk of Magnesia) 400 Mg/5 Ml Oral.susp, 30 ML PO DAILY PRN for CONSTIPATION-7TH LINE, (Reported) Entered as Reported by: RASHID ODEN on 11/05/201202 Last Action: Reviewed Meclizine HCl (Meclizine HCl) 25 Mg Tablet, 25 MG PO Q8H PRN for DIZZINESS, (Reported) Entered as Reported by: RASHID ODEN on 11/05/201201 Last Action: Reviewed Metformin HCl (Metformin HCl) 500 Mg Tablet, 500 MG PO DAILY, (Reported) Entered as Reported by: RASHID ODEN on 11/05/201201 Last Action: Reviewed Metoprolol Succinate (Metoprolol Succinate) 25 Mg Tab.er.24h, 25 MG PO DAILY, (Reported) Entered as Reported by: RASHID ODEN on 11/05/201202 Last Action: Reviewed Ondansetron HCl (Ondansetron HCl) 4 Mg Tablet, 4 MG PO Q4H PRN for NAUSEA/VOMITING-1ST LINE, (Reported) Entered as Reported by: RASHID ODEN on 11/05/201201 Last Action: Reviewed Oxybutynin Chloride (Oxybutynin Chloride) 5 Mg Tablet, 5 MG PO DAILY, (Reported) Entered as Reported by: RASHID ODEN on 11/05/201201 Last Action: Reviewed Rosuvastatin Calcium (Crestor) 10 Mg Tablet, 10 MG PO HS, (Reported) Entered as Reported by: RASHID ODEN on 11/05/201202 Last Action: Reviewed Venlafaxine HCl (Venlafaxine HCl ER) 75 Mg Tab.er.24, 75 MG PO DAILY, (Reported) Entered as Reported by: RASHID ODEN on 11/05/201209 Last Action: Reviewed Zinc (Zinc) 50 Mg Tablet, 50 MG PO DAILY, (Reported) Entered as Reported by: RASHID ODEN on 11/05/20 1203 Last Action: Reviewed lidocaine HCL (lidocaine HCL) 1 Each Adh..patch, 1 EACH TP DAILY, (Reported) Entered as Reported by: RASHID ODEN on 11/05/20 1203 Last Action: Reviewed Discontinued Medications Acetaminophen (Acetaminophen) 325 Mg Tablet, 650 MG PO Q6H PRN for PAIN-MILD (1-4) Discontinued Reason: Duplicate Order Prescribed by: NICANOR ESTRELLA on 10/24/19 1318 Amoxicillin/Potassium Clav (Augmentin 875-125 Tablet) 1 Each Tablet, 1 EACH PO BID Discontinued Reason: No Longer Taking Prescribed by: AMMON MONCADA on 11/05/20 1444 Last Action: Discontinued Divalproex Sodium (Depakote) 125 Mg Tablet.dr, 125 MG PO, (Reported) Discontinued Reason: Prescription changed Entered as Reported by: RASHID ODEN on 11/05/20 1202 Hydrocodone/Acetaminophen (Hydrocodone-Acetamin 5-325 mg) 1 Each Tablet, 1 TAB PO Q4H PRN for PAIN-MODERATE (5-7) Discontinued Reason: Duplicate Order Prescribed by: AMMON MONCADA on 11/05/20 1444 Last Action: Discontinued Meclizine HCl (Meclizine HCl) 25 Mg Tablet, 25 MG PO TID PRN for DIZZINESS, (Reported) Discontinued Reason: Duplicate Order Entered as Reported by: PHILLIP COTTER on 10/17/18 0915 Metformin HCl (Metformin HCl ER) 500 Mg Tab.er.24, 500 MG PO DAILY Discontinued Reason: Duplicate Order Prescribed by: NICANOR ESTRELLA on 10/24/19 1505 Metoprolol Succinate (Metoprolol Succinate) 25 Mg Tab.er.24h, 25 MG PO DAILY, (Reported) Discontinued Reason: Duplicate Order Entered as Reported by: RASHID ODEN on 10/22/19 1319 Ondansetron (Ondansetron Odt) 4 Mg Tab.rapdis, 4 MG PO Q4H Discontinued Reason: Duplicate Order Prescribed by: NICANOR ESTRELLA on 10/24/19 1318 Rosuvastatin Calcium (Crestor) 10 Mg Tablet, 10 MG PO HS, (Reported) Discontinued Reason: Duplicate Order Entered as Reported by: PHILLIP COTTER on 10/17/18 0915 [Lidocaine 4% Patch] 1 EA PATCH, 2 EA TOP DAILY Discontinued Reason: Duplicate Order Prescribed by: NICANOR ESTRELLA on 10/24/19 1318 Past Gohdvca-Gtxyfl-Myzzct Hx Patient Social History Marrital Status: Employed/Student: retired Tobacco Use?: No Smoking Status: Unknown if Ever Smoked Smokeless Tobacco Frequency: Unknown if Ever Used Use of E-Cig and/or Vaping dev: Unable to obtain Substance use?: Unable to obtain Alcohol Use?: Unable to obtain Pt feels they are or have been: Unable to obtain Immunizations Up To Date First/Initial COVID19 Vaccinat: UNKNOWN Second COVID19 Vaccination Scott: UNKNOWN Tetanus Booster (TDap): Unknown Hepatitis A: No Hepatitis B: No Seasonal Allergies Seasonal Allergies: No Current Status status: Unknown Advance Directives: Unable to obtain Communicates: Unable To Communicate Primary Language: Bermudian Preferred Spoken Language: Bermudian Is interpretation needed?: Yes Sensory deficits: Vision impairment Implanted or Applied Medical D: Orthopedic hardware Past Medical History Surgeries: Appendectomy, Orthopedic Currently Using CPAP: No Currently Using BIPAP: No High Cholesterol, Hypertension, Valvular Heart Disease Dementia, Stroke, TIA, Traumatic Brain Injury, Vertigo RN PEDIATRIC History: Menopausal Gastroesophageal Reflux, Liver Disease/Jaundice, Diverticulosis, Hemorrhoids, Hiatal Hernia Osteoporosis, Fractures Diabetes, Non-Insulin dep Anxiety Blood Disorders: Yes (ANEMIA) Family Medical History Patient reports no known family medical history. Diabetes Review of Systems Review of Systems General: Fatigue HEENT: No Head Aches, No Visual Changes, No Eye Pain, No Ear Pain, No Dysphasia, No Sinus Congestion, No Post Nasal Drip, No Sore Throat, No Other Pulmonary: No Dyspnea, No Cough, No Pleuritic Chest Pain, No Other Cardiovascular: Edema Gastrointestinal: Nausea, Vomiting, Abdominal Pain Genitourinary: No Dysuria, No Frequency, No Incontinence, No Hematuria, No Retention, No Other Musculoskeletal: No: other, neck pain, shoulder pain, arm pain, back pain, hand pain, leg pain, foot pain Neurological: Weakness, Confusion Physical Exam Vital Signs Vital Signs - First Documented 11/10/20 01:47 Temp 36.5 Pulse 93 Resp 24 B/P (MAP) 165/83 (110) Pulse Ox 96 O2 Delivery Room Air Capillary Refill : Less Than 3 Seconds Height, Weight, BMI Height: 5'0.00" Weight: 118lbs. 1.0oz. [id number]; 23.01 BMI Method:Stated General Appearance: Moderate Distress HEENT: Other (MM dry) Respiratory: Wheezing (upper airway--expiratory) Cardiovascular: Gallop/S4, Tachycardia Gastrointestinal: Abnormal Bowel Sounds, Distended, Tenderness, Other (BRUCE drain in place with serosanguinous drainage) Extremity: Non Tender, No Calf Tenderness, Pedal Edema Neurologic/Psychiatric: Alert, Disoriented Skin: Warm/Dry Comments Laboratory Tests 11/10/20 01:56: White Blood Count 12.9H, Red Blood Count 4.16, Hemoglobin 12.5, Hematocrit 37, Mean Corpuscular Volume 89, Mean Corpuscular Hemoglobin 30, Mean Corpuscular Hemoglobin Concent 34, Red Cell Distribution Width 13.2, Platelet Count 261, Mean Platelet Volume 10.2, Immature Granulocyte % (Auto) 6, Neutrophils (%) (Auto) 74, Lymphocytes (%) (Auto) 14, Monocytes (%) (Auto) 5, Eosinophils (%) (Auto) 1, Basophils (%) (Auto) 1, Neutrophils # (Auto) 9.6H, Lymphocytes # (Auto) 1.8, Monocytes # (Auto) 0.6, Eosinophils # (Auto) 0.2, Basophils # (Auto) 0.1, Immature Granulocyte # (Auto) 0.7H, Sodium Level 138, Potassium Level 2.7L, Chloride Level 104, Carbon Dioxide Level 24, Anion Gap 10, Blood Urea Nitrogen 9, Creatinine 0.62, Estimat Glomerular Filtration Rate 94, BUN/Creatinine Ratio 15, Glucose Level 138H, Calcium Level 7.9L, Corrected Calcium 9.2, Magnesium Level 1.8, Total Bilirubin 0.3, Aspartate Amino Transf (AST/SGOT) 36H, Alanine Aminotransferase (ALT/SGPT) 70H, Alkaline Phosphatase 85, Total Protein 5.3L, Albumin 2.4L, Valproic Acid (Depakene) Level 12.3L 11/10/20 02:28: Urine Color YELLOW, Urine Clarity CLEAR, Urine pH 6.0, Urine Specific Valentine 1.020, Urine Protein NEGATIVE, Urine Glucose (UA) NEGATIVE, Urine Ketones NEGATIVE, Urine Nitrite NEGATIVE, Urine Bilirubin NEGATIVE, Urine Urobilinogen 1.0, Urine Leukocyte Esterase NEGATIVE, Urine RBC (Auto) NEGATIVE, Urine RBC NONE, Urine WBC NONE, Urine Squamous Epithelial Cells 0-2, Urine Crystals NONE, Urine Bacteria NEGATIVE, Urine Casts NONE, Urine Mucus SMALLH, Urine Culture Indicated NO Assessment/Plan Assessment/Plan Admission Dx 1. Post-op Ileus vs Small Bowel Obstruction--has pulled out 2 NG tubes, on fentanyl for pain control, Reglan started, add lovenox for DVT prophylaxis 2. S/P Lap Appy due to Perforated Appendicitis--BRUCE drain still in place 3. Dementia with Behavior Disorder--will resume home meds once taking orals 4. Hypertension with current tachycardia--replace potassium and monitor on telemetry 5. Hypokalemia--replace potassium and recheck lab in AM 6. Leukocytosis--started on Zosyn, will monitor WBC count 7. Edema/Third Spacing--given IV lasix on admit and has diuresed well NICANOR ESTRELLA DO Nov 10, 2020 19:21
[2020-11-10] MEDS: ENOXAPARIN 40 MG/0.4 ML (LOVENOX) SYR SC SCH (20:12)
[2020-11-10 20:19] VITALS: BP 136/78
[2020-11-10 23:30] VITALS: BP 119/73
[2020-11-11] MEDS: POTASSIUM CL 10MEQ/50ML IVPB 50 ML IV SCH ×6 (00:11→14:43)
[2020-11-11] MEDS: METOCLOPRAMIDE INJ 10 MG/2 ML (REGLAN) IVP SCH ×4 (00:11→17:21)
[2020-11-11] MEDS: fentaNYL INJ 100 MCG/2 ML AMP IV PRN (00:17)
[2020-11-11] MEDS: PIPERACILLIN/TAZOBACTAM (BULK) 4.5 GM in NS (IVPB) 100 ML IV SCH ×3 (03:47→18:29)
[2020-11-11] MEDS: D5 1/2 NS W/KCL 20 MEQ/L 1,000 ML IV SCH ×2 (03:50→11:38)
[2020-11-11 04:00] VITALS: BP 132/77
[2020-11-11 06:04] LABS: BASOPHILS % (AUTO) 0 % (0-10); EOSINOPHILS # (AUTO) 0.1 10^3/uL (0.0-0.3); EOSINOPHILS % (AUTO) 0 % (0-10); HEMATOCRIT 34 % (35-52); LYMPHOCYTES # (AUTO) 1.3 10^3/uL (1.0-4.0); LYMPHOCYTES % (AUTO) 9 % (12-44); MEAN CORPUSCULAR HEMOGLOBIN 29 pg (25-34); MEAN CORPUSCULAR HGB CONC 32 g/dL (32-36); MEAN CORPUSCULAR VOLUME 91 fL (80-99); MEAN PLATELET VOLUME 10.2 fL (9.0-12.2); MONOCYTES # (AUTO) 0.7 10^3/uL (0.0-1.0); MONOCYTES % (AUTO) 5 % (0-12); NEUTROPHILS % (AUTO) 82 % (42-75); PLATELET COUNT 255 10^3/uL (130-400); WHITE BLOOD COUNT 13.5 10^3/uL (4.3-11.0)
[2020-11-11 06:14] LABS: POTASSIUM 2.9 MMOL/L (3.6-5.0)
[2020-11-11 06:15] LABS: CALCIUM 7.5 MG/DL (8.5-10.1)
[2020-11-11 06:20] LABS: CREATININE SERUM 0.62 MG/DL (0.60-1.30)
[2020-11-11 08:00] VITALS: BP 124/60
--- NOTE | 2020-11-11 08:06 | Progress Note ---
Subjective Subjective Date Seen by Provider: Nov 11, 2020 Time Seen by Provider: 07:50 Fwup post-op ileus vs SBO, S/P Lap Appy due to ruptured appendicitis, dementia with behavior disorder, hypokalemia, leukocytosis. Pt is hypersomnulent and history was unable to obtain. Abdominal exam still showed signs of distention, nonsoft, and diffuse tenderness. On clear liquid diet. Nursing reports has had 2 small bowel movements. Review of Systems ROS Unable to Obtain: Hypersomnulent Objective Exam Vital Signs Vital Signs Date Time Temp Pulse Resp B/P (MAP) Pulse Ox O2 Delivery O2 Flow Rate FiO2 11/11/20 04:00 36.2 92 18 132/77 (95) 95 Room Air 11/11/20 01:00 92 11/10/20 23:30 36.1 93 18 119/73 (88) 95 Room Air 11/10/20 20:19 36.3 72 18 136/78 (97) 95 Room Air 11/10/20 20:00 Room Air 11/10/20 19:00 100 11/10/20 16:37 37.2 114 20 130/81 (97) 95 Room Air 11/10/20 14:47 105 11/10/20 12:00 36.9 99 20 147/81 (103) 94 Room Air 11/10/20 09:00 Room Air I & O 11/11/20 07:00 Intake Total 4220 ml Output Total 5315 ml Balance -1095 ml General Appearance: Mild Distress Neck: Normal Inspection Respiratory: Lungs Clear, Decreased Breath Sounds Cardiovascular: Regular Rate, Rhythm Gastrointestinal: Abnormal Bowel Sounds, Distended, Tenderness, Other (BRUCE drain in place with serosanguinous drainage) Extremity: Non Tender, No Calf Tenderness, Pedal Edema, Swelling Neurologic/Psychiatric: Alert Skin: Warm/Dry Results Lab Laboratory Tests 11/11/20 05:55: White Blood Count 13.5H, Red Blood Count 3.75L, Hemoglobin 11.0L, Hematocrit 34L , Mean Corpuscular Volume 91, Mean Corpuscular Hemoglobin 29, Mean Corpuscular Hemoglobin Concent 32, Red Cell Distribution Width 13.5, Platelet Count 255, Mean Platelet Volume 10.2, Immature Granulocyte % (Auto) 3, Neutrophils (%) (Auto) 82H, Lymphocytes (%) (Auto) 9L, Monocytes (%) (Auto) 5, Eosinophils (%) (Auto) 0, Basophils (%) (Auto) 0, Neutrophils # (Auto) 11.0H, Lymphocytes # (Auto) 1.3, Monocytes # (Auto) 0.7, Eosinophils # (Auto) 0.1, Basophils # (Auto) 0.0, Immature Granulocyte # (Auto) 0.4H, Sodium Level 137, Potassium Level 2.9L, Chloride Level 102, Carbon Dioxide Level 26, Anion Gap 9, Blood Urea Nitrogen 5L , Creatinine 0.62, Estimat Glomerular Filtration Rate 94, BUN/Creatinine Ratio 8, Glucose Level 125H, Calcium Level 7.5L Assessment/Plan Assessment/Plan Assessment and Plan 1. Post-op Ileus vs Small Bowel Obstruction--has pulled out 2 NG tubes--on clear liquids, has had 2 small BMs, on fentanyl for pain control, Reglan started, lovenox for DVT prophylaxis 2. S/P Lap Appy due to Perforated Appendicitis--BRUCE drain still in place 3. Dementia with Behavior Disorder--will resume home meds once taking orals 4. Hypertension with current tachycardia--replace potassium and monitor on telemetry 5. Hypokalemia--replace potassium via IV today and recheck lab in AM 6. Leukocytosis--started on Zosyn, will monitor WBC count 7. Edema/Third Spacing--given IV lasix on admit and has diuresed well, decrease IVF rate Patient seen and agree with above--patient did recognize my face today and answered a few questions with nodding of head and mumbled yes. Supervisory-Addendum Brief Verification & Attestation Participated in pt care: history, physical Personally performed: exam, history, supervision of care Care discussed with: Medical Student Procedures: n/a Patient seen and agree with above assessment and plan SANDI NAVARRO Nov 11, 2020 08:06 NICANOR ESTRELLA DO Nov 11, 2020 08:41
[2020-11-11] MEDS: PANTOPRAZOLE 40 MG (PROTONIX) VIAL IV SCH (08:35)
[2020-11-11 12:00] VITALS: BP 120/65
[2020-11-11 15:36] VITALS: BP 126/58
--- NOTE | 2020-11-11 15:37 | Progress Note ---
Subjective Date Seen by a Provider: Nov 11, 2020 Time Seen by a Provider: 15:00 Subjective/Events-last exam appears comfortable. unsure if has had any bowel fxn. no fever/chills. t olerating clears. no nausea/vomiting. Objective Exam Vital Signs Date Time Temp Pulse Resp B/P (MAP) Pulse Ox O2 Delivery O2 Flow Rate FiO2 11/11/20 12:00 36.1 88 20 120/65 (83) 96 Room Air 11/11/20 08:00 36.0 86 20 124/60 (81) 95 Room Air 11/11/20 08:00 Room Air 11/11/20 07:00 90 11/11/20 04:00 36.2 92 18 132/77 (95) 95 Room Air 11/11/20 01:00 92 11/10/20 23:30 36.1 93 18 119/73 (88) 95 Room Air 11/10/20 20:19 36.3 72 18 136/78 (97) 95 Room Air 11/10/20 20:00 Room Air 11/10/20 19:00 100 11/10/20 16:37 37.2 114 20 130/81 (97) 95 Room Air I & O 11/11/20 07:00 Intake Total 4220 ml Output Total 5315 ml Balance -1095 ml Capillary Refill : Less Than 3 Seconds General Appearance: No Apparent Distress HEENT: PERRL/EOMI Neck: Full Range of Motion Respiratory: Chest Non Tender Cardiovascular: Regular Rate, Rhythm Gastrointestinal: soft, tenderness Extremity: Normal Capillary Refill Neurologic/Psychiatric: Alert, Oriented x3 Skin: Normal Color Lymphatic: No Adenopathy Results Lab Laboratory Tests 11/11/20 05:55: White Blood Count 13.5H, Red Blood Count 3.75L, Hemoglobin 11.0L, Hematocrit 34L , Mean Corpuscular Volume 91, Mean Corpuscular Hemoglobin 29, Mean Corpuscular Hemoglobin Concent 32, Red Cell Distribution Width 13.5, Platelet Count 255, Mean Platelet Volume 10.2, Immature Granulocyte % (Auto) 3, Neutrophils (%) (Auto) 82H, Lymphocytes (%) (Auto) 9L, Monocytes (%) (Auto) 5, Eosinophils (%) (Auto) 0, Basophils (%) (Auto) 0, Neutrophils # (Auto) 11.0H, Lymphocytes # (Auto) 1.3, Monocytes # (Auto) 0.7, Eosinophils # (Auto) 0.1, Basophils # (Auto) 0.0, Immature Granulocyte # (Auto) 0.4H, Sodium Level 137, Potassium Level 2.9L, Chloride Level 102, Carbon Dioxide Level 26, Anion Gap 9, Blood Urea Nitrogen 5L , Creatinine 0.62, Estimat Glomerular Filtration Rate 94, BUN/Creatinine Ratio 8, Glucose Level 125H, Calcium Level 7.5L Assessment/Plan Assessment/Plan Assess & Plan/Chief Complaint ileus s/p lap appy for perf appendicitis. correct electrolytes. ambulate. await more bowel fxn. AMMON GUAJARDO MD Nov 11, 2020 15:37
[2020-11-11] MEDS: ENOXAPARIN 40 MG/0.4 ML (LOVENOX) SYR SC SCH (18:30)
--- NOTE | 2020-11-11 19:35 | Diagnostic Imaging Report ---
INDICATION: Shortness of air. COMPARISON: 11/10/2020. FINDINGS: Heart size is stable. There is poor inspiratory volume crowding the lung markings with diminished inspiratory volume. No focal consolidation. No reid edema. No effusion or pneumothorax. IMPRESSION: Limited inspiratory volume with crowding of the lung markings. No acute pathological finding apparent. Dictated by: Dictated on workstation # [id number]
[2020-11-11 19:38] VITALS: BP 136/64
[2020-11-11 23:04] VITALS: BP 132/61
[2020-11-12] MEDS: D5 1/2 NS W/KCL 20 MEQ/L 1,000 ML IV SCH ×3 (00:19→21:14)
[2020-11-12] MEDS: PIPERACILLIN/TAZOBACTAM (BULK) 4.5 GM in NS (IVPB) 100 ML IV SCH ×3 (02:45→19:22)
[2020-11-12] MEDS: fentaNYL INJ 100 MCG/2 ML AMP IV PRN ×3 (02:51→12:41)
[2020-11-12 04:02] VITALS: BP 120/60
[2020-11-12 06:40] LABS: HEMATOCRIT 34 % (35-52); HEMOGLOBIN 11.1 g/dL (11.5-16.0); MEAN CORPUSCULAR HEMOGLOBIN 30 pg (25-34); MEAN CORPUSCULAR HGB CONC 33 g/dL (32-36); MEAN CORPUSCULAR VOLUME 91 fL (80-99); MEAN PLATELET VOLUME 10.3 fL (9.0-12.2); PLATELET COUNT 298 10^3/uL (130-400); WHITE BLOOD COUNT 13.6 10^3/uL (4.3-11.0)
[2020-11-12 06:48] LABS: ALBUMIN 2.4 GM/DL (3.2-4.5); POTASSIUM 3.1 MMOL/L (3.6-5.0)
[2020-11-12 06:49] LABS: CALCIUM 7.6 MG/DL (8.5-10.1)
[2020-11-12 06:51] LABS: TOTAL PROTEIN 5.5 GM/DL (6.4-8.2)
[2020-11-12 06:52] LABS: BILIRUBIN,TOTAL 0.4 MG/DL (0.1-1.0)
[2020-11-12 06:54] LABS: CREATININE SERUM 0.66 MG/DL (0.60-1.30)
[2020-11-12 08:00] VITALS: BP 142/82
[2020-11-12] MEDS: PANTOPRAZOLE 40 MG (PROTONIX) VIAL IV SCH (08:06)
--- NOTE | 2020-11-12 08:07 | Progress Note ---
Subjective Subjective Date Seen by Provider: Nov 12, 2020 Time Seen by Provider: 08:05 Fwup post-op ileu, S/P Lap Appy due to ruptured appendicitis, dementia with behavior disorder, hypokalemia, leukocytosis. Today patient is alert and reported feeling better. Nursing reported liquid bowel movements this morning. Normal bowel sounds present with decreased abdominal distention and tenderness. Also R arm and LE edema decreased since yesterday. WBC still high at 13.6. Potassium improved to 3.1. Diet advanced to dysphagia 3 with ground meat. Review of Systems ROS Unable to Obtain: Due to patient condition Objective Exam Vital Signs Vital Signs Date Time Temp Pulse Resp B/P (MAP) Pulse Ox O2 Delivery O2 Flow Rate FiO2 11/12/20 08:00 36.2 95 20 142/82 (102) 94 Room Air 11/12/20 07:59 98 Room Air 11/12/20 07:00 104 11/12/20 04:02 36.0 82 22 120/60 (80) 97 Room Air 11/12/20 01:00 95 11/11/20 23:04 36.7 96 30 132/61 (84) 95 Room Air 11/11/20 19:43 98 Room Air 11/11/20 19:38 36.8 100 18 136/64 (88) 96 Room Air 11/11/20 19:00 104 11/11/20 15:36 36.7 86 18 126/58 (80) 98 Room Air 11/11/20 13:00 93 11/11/20 12:00 36.1 88 20 120/65 (83) 96 Room Air I & O 11/12/20 07:00 Intake Total 2420 ml Output Total 2425 ml Balance -5 ml General Appearance: No Apparent Distress HEENT: PERRL/EOMI Neck: Normal Inspection Respiratory: Chest Non Tender Gastrointestinal: Normal Bowel Sounds, Non Tender, Distended, Other (BRUCE drain in place with serosanguinous drainage) Extremity: Normal Capillary Refill, Non Tender, No Calf Tenderness Neurologic/Psychiatric: Alert Skin: Normal Color, Warm/Dry Results Lab Laboratory Tests 11/11/20 19:30: B-Type Natriuretic Peptide 26.8 11/12/20 06:25: White Blood Count 13.6H, Red Blood Count 3.70L, Hemoglobin 11.1L, Hematocrit 34L , Mean Corpuscular Volume 91, Mean Corpuscular Hemoglobin 30, Mean Corpuscular Hemoglobin Concent 33, Red Cell Distribution Width 13.4, Platelet Count 298, Mean Platelet Volume 10.3, Sodium Level 137, Potassium Level 3.1L, Chloride Level 102, Carbon Dioxide Level 24, Anion Gap 11, Blood Urea Nitrogen 4L, Creatinine 0.66, Estimat Glomerular Filtration Rate 87, BUN/Creatinine Ratio 6, Glucose Level 156H, Calcium Level 7.6L, Corrected Calcium 8.9, Total Bilirubin 0.4, Aspartate Amino Transf (AST/SGOT) 26, Alanine Aminotransferase (ALT/SGPT) 40, Alkaline Phosphatase 69, Total Protein 5.5L, Albumin 2.4L Assessment/Plan Assessment/Plan Assessment and Plan 1. Post-op Ileus--on fentanyl for pain control, Reglan discontinued, lovenox for DVT prophylaxis, advanced diet to Dysphagia 3 with ground meat, PT/OT 2. S/P Lap Appy due to Perforated Appendicitis--BRUCE drain still in place 3. Dementia with Behavior Disorder-- resumed some home meds, Effexor and Depakote 4. Hypertension with current tachycardia--continue replace potassium and monitor on telemetry, started on metoprolol 5. Hypokalemia--continue to replace potassium and recheck lab in AM 6. Leukocytosis--on Zosyn, will monitor WBC count, will check for C. Diff due to current diarrheal symptoms with continued antibiotic use 7. Edema/Third Spacing--given IV lasix on admit and has diuresed well, decrease IVF rate Patient seen and agree with above--patient again recognized my face today and reported feeling better and has no questions. Supervisory-Addendum Brief Verification & Attestation Participated in pt care: history, physical Personally performed: exam, history, supervision of care Care discussed with: Medical Student Procedures: n/a Patient seen and examined and agree with above assessment and plan SANDI NAVARRO Nov 12, 2020 08:07 NICANOR ESTRELLA DO Nov 12, 2020 12:26
[2020-11-12] MEDS: VENlafaxine XR 75 MG (EFFEXOR XR) CAP PO SCH (08:52)
[2020-11-12] MEDS: POTASSIUM CL 10MEQ/50ML IVPB 50 ML IV SCH ×4 (08:53→12:41)
[2020-11-12] MEDS: ONDANSETRON 4 MG/2 ML (SDV) Z0FRAN IV PRN (10:34)
--- NOTE | 2020-11-12 11:05 | Physical Therapy Evaluation ---
PT Evaluation-General Medical Diagnosis Admission Date Nov 10, 2020 at 04:30 Medical Diagnosis: small bowel obstruction Onset Date: Nov 10, 2020 Therapy Diagnosis Therapy Diagnosis: debility/weakness Height/Weight Height (Feet): 5 Height (Inches): 0.00 Weight (Pounds): 118 Weight (Ounces): 1.0 Precautions Precautions/Isolations: Fall Prevention, Standard Precautions Referral Physician: Patel Reason for Referral: Evaluation/Treatment Medical History Pertinent Medical History: CVA, Dementia, GERD, HTN, TBI Current History EMS from [place] secondary to abdominal pain/s/p appy Reviewed History: Yes Social 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 1-Fhiskfaiob-fzdwxln completes the activity by him/herself with no assistance fr om a helper. 5-Set-up or Clean-up Assistance-helper sets up or cleans up; patient completes activity. [place] assists only prior to or following the activity. 4-Supervision or Touching Assistance-helper provides verbal cues and/or touching/steadying and/or contact guard assistance as patient completes activity. Assistance may be provided throughout the activity or intermittently. 3-Partial/Moderate Assistance-helper does LESS THAN HALF the effort. [place] lifts, holds or supports trunk or limbs, but provides less than half the effort. 2-Substantial/Maximal Assistance-helper does MORE THAN HALF the effort. [place] lifts or holds trunk or limbs and provides more than half the effort. 8-Ctldtbnqm-ovzxai does ALL the effort. Patient does none of the effort to complete the activity. Or, the assistance of 2 or more helpers is required for the patient to complete the activity. If activity was not attempted, code reason: 7-Patient Refused. 9-Not Applicable-not attempted and the patient did not perform the activity before the current illness, exacerbation or injury. 10-Not Attempted due to Environmental Limitations-(lack of equipment, weather restraints, etc.). 88-Not Attempted due to Medical Conditions or Safety Concerns. Bed Mobility: 1 Transfers (B,C,W/C): 2 Gait: 9 Stairs: 9 PT Evaluation-Current Subjective Patient non verbal with PT. Does respond with a smile. Objective Patient Orientation: Confused (dementia) Attachments: Central Line, Vyas Catheter ROM/Strength ROM Lower Extremities right LE extension tone with ankle plantarflexion contracture/left LE slightly rigid but WFL Strength Lower Extremities right LE extension tone/left LE 3-/5 grossly (unable to formally test due to dementia) Integumentary/Posture Bowel Incontinence: Yes Bladder Incontinence: Vyas Cath Posture WFL Neuromuscular (Tone, Coordination, Reflexes) extension right LE/severely diminished coordination globally Sensory Vision: Unable to Assess Hearing: Unable to Assess Transfers Roll Left to Right (QC): 1 Sit to Lying (QC): 1 Lying to Sitting/Side of Bed(Q: 1 Sit to Stand (QC): 1 Chair/Jpa-cj-[place] Xfer(QC): 88 Gait Does the Patient Walk?: No and Walking Goal NOT indicated Walk 10 feet (QC): 9 Walk 50 ft with 2 Turns(QC): 9 Walk 150 ft (QC): 9 Balance Sitting Static: Poor Sitting Dynamic: Poor Standing Static: Poor Standing Dynamic: Poor Assessment/Needs 75 y.o. female, will benefit from short term skilled PT to address functional strength and mobility. Rehab Potential: Guarded PT Court Bailiff Goals [facility] Goals PT Court Bailiff Goals Time Frame: Nov 21, 2020 Roll Left & Right (QC): 2 Sit to Lying (QC): 2 Lying-Sitting on Side/Bed(QC): 2 Sit to Stand (QC): 2 Chair/Nfm-km-Pdjlx Xfer(QC): 2 PT Plan Problem List Problem List: Activity Tolerance, Functional Strength, Safety, Balance, Gait, Transfer, Bed Mobility, ROM Treatment/Plan Treatment Plan: Continue Plan of Care Treatment Plan: Bed Mobility, Education, Functional Activity Morgan, Functional Strength, Gait, Safety, Therapeutic Exercise, Transfers Treatment Duration: Nov 21, 2020 Frequency: 6 times per week Estimated Hrs Per Day: .25 hour per day Time/GCodes Time In: 1040 Time Out: 1053 Total Billed Treatment Time: 13 Total Billed Treatment 1 visit EVMod 13 min PIPPA HSIEH PT Nov 12, 2020 11:05
[2020-11-12 12:00] VITALS: BP 128/79
--- NOTE | 2020-11-12 12:05 | Occupational Therapy Eval ---
OT Evaluation-General/PLF Medical Diagnosis Admission Date Nov 10, 2020 at 04:30 Medical Diagnosis: small bowel obstruction Onset Date: Nov 10, 2020 Therapy Diagnosis Therapy Diagnosis: decreased ADL status Height/Weight Height (Feet): 5 Height (Inches): 0.00 Weight (Pounds): 118 Weight (Ounces): 1.0 Precautions Precautions/Isolations: Fall Prevention, Standard Precautions Referral Physician: Patel Medical History Pertinent Medical History: CVA, Dementia, GERD, HTN, TBI Additional Medical History subarachnoid hemorrhage, diverticulosis, DM, anxiety Current History EMS from [place] secondary to abdominal pain/s/p appy 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 6-Ivqskfppvf-qdrnsgm completes the activity by him/herself with no assistance from a helper. 5-Set-up or Clean-up Assistance-helper sets up or cleans up; patient completes activity. [place] assists only prior to or following the activity. 4-Supervision or Touching Assistance-helper provides verbal cues and/or touching/steadying and/or contact guard assistance as patient completes activity. Assistance may be provided throughout the activity or intermittently. 3-Partial/Moderate Assistance-helper does LESS THAN HALF the effort. [place] lifts, holds or supports trunk or limbs, but provides less than half the effort. 2-Substantial/Maximal Assistance-helper does MORE THAN HALF the effort. [place] lifts or holds trunk or limbs and provides more than half the effort. 1-Xtszbwwek-fkxvjg does ALL the effort. Patient does none of the effort to complete the activity. Or, the assistance of 2 or more helpers is required for the patient to complete the activity. If activity was not attempted, code reason: 7-Patient Refused. 9-Not Applicable-not attempted and the patient did not perform the activity before the current illness, exacerbation or injury. 10-Not Attempted due to Environmental Limitations-(lack of equipment, weather restraints, etc.). 88-Not Attempted due to Medical Conditions or Safety Concerns. ADL PLOF Comments Pt unable to provide information about PLOF, she resides in a memory care unit at a [facility]. Based on clinical judgment, pt would require assistance with ADLs. Self Care: Needed Some Help Functional Cognition: Needed Some Help OT Current Status Subjective Pt laying in bed, unable to answer questions due to confusion and mainly noverbal during session. Mental Status/Objective Patient Orientation: Confused Attachments: Central Line, Vyas Catheter Current Upper Extremity ROM Increased tone throughout RUE, limited PROM at elbow and shoulder, WFL PROM for finger flexion digits 2-5. Pt did not attempt to move RUE throughout tx. LUE grossly WFL, unable to follow commands for formal testing. Upper Extremity Coordination decreased ADL-Treatment Eating (QC): 2 (Per nursing report, max A with feeding.) Oral Hygiene (QC): 2 (Pt used toothbrush to brush L lower teeth, assistance to brush R side and L upper teeth) Shower/Bathe Self (QC): 1 (based on clincial judgment) Lower Body Dressing (QC): 1 (based on clincial judgement) On/Off Footwear (QC): 1 (based on clincial judgement) Toileting Hygiene (QC): 1 (based on clincial judgement) Other Treatments Pt laying in bed, brushed teeth with max A, then combed hair with moderate assistance. Pt brushed hair on L side of head using LUE, required assistance on R side. Pt unable to provide information about PLOF and unable to answer questions. Per PT evaluation, pt is currently dependent with rolling, sit - lying, lying-sit, and sit to stand transfers. Post tx, pt in bed, call light in reach and all needs met, bed alarm activated. Education OT Patient Education: Correct positioning, Modified ADL techniques, Progress toward Goal/Update tx plan, Purpose of tx/functional activities, Rehab process Teaching Recipient: Patient Teaching Methods: Discussion Response to Teaching: Unable to Return Demonstration, Unable to Comprehend OT [facility] Goals Billing Services Manager Goals Time Frame: Nov 27, 2020 Eating (QC): 3 Oral Hygiene (QC): 3 Toileting Hygiene (QC): 2 Shower/Bathe Self (QC): 2 Upper Body Dressing (QC): 3 Lower Body Dressing (QC): 2 On/Off Footwear (QC): 2 Additional Goals: 1-Demonstrate ADL Tasks, 2-Verbalize Understanding, 3- ImproveStrength/Morgan 1=Demonstrate adherence to instructed precautions during ADL tasks. 2=Patient will verbalize/demonstrate understanding of assistive devices/modifications for ADL. 3=Patient will improve strength/tolerance for activity to enable patient to perform ADL's. OT Education/Plan Problem List/Assessment Assessment: Decreased Activ Tolerance, Decreased Safety Aware, Decreased UE Strength, Dependent Transfers, Impaired Bed Mobility, Impaired Cognition, Impaired Coordination, Impaired Funct Balance, Impaired I ADL's, Impaired Self- Care Skills, Restricted Funct UE ROM Discharge Recommendations Plan/Recommendations: Continue POC Treatment Plan/Plan of Care Patient would benefit from OT for education, treatment and training to promote independence in ADL's, mobility, safety and/or upper extremity function for ADL's. Plan of Care: ADL Retraining, Functional Mobility, UE Funct Exercise/Act Treatment Duration: Nov 27, 2020 Frequency: 5 times per week Estimated Hrs Per Day: .25 hour per day Rehab Potential: Guarded Time/GCodes Start Time: 11:01 Stop Time: 11:12 Total Time Billed (hr/min): 11 Billed Treatment Time 1, ROCHELLE HATFIELD OT Nov 12, 2020 12:05
[2020-11-12 15:53] VITALS: BP 159/76
--- NOTE | 2020-11-12 17:22 | Progress Note ---
Subjective Date Seen by a Provider: Nov 12, 2020 Time Seen by a Provider: 17:10 Subjective/Events-last exam Patient seen with Dr. Moncada. Patient keeps repeating "pain". Patient confused and will answer some questions appropriately and some she does not. Nursing staff reports that she is passing gas and having bowel movements. Reports that she is eating but has to be fed. Objective Exam Vital Signs Date Time Temp Pulse Resp B/P (MAP) Pulse Ox O2 Delivery O2 Flow Rate FiO2 11/12/20 15:53 35.9 86 24 159/76 (103) 96 Room Air 11/12/20 13:28 87 11/12/20 12:00 35.9 100 22 128/79 (95) 96 Room Air 11/12/20 08:00 36.2 95 20 142/82 (102) 94 Room Air 11/12/20 07:59 Room Air 11/12/20 07:00 104 11/12/20 04:02 36.0 82 22 120/60 (80) 97 Room Air 11/12/20 01:00 95 11/11/20 23:04 36.7 96 30 132/61 (84) 95 Room Air 11/11/20 19:43 98 Room Air 11/11/20 19:38 36.8 100 18 136/64 (88) 96 Room Air 11/11/20 19:00 104 I & O 11/12/20 07:00 Intake Total 2420 ml Output Total 2425 ml Balance -5 ml Capillary Refill : Less Than 3 Seconds General Appearance: No Apparent Distress, WD/WN Neck: Normal Inspection, Supple Respiratory: No Accessory Muscle Use, No Respiratory Distress Cardiovascular: Regular Rate, Rhythm, No JVD Gastrointestinal: normal bowel sounds, soft, distended, tenderness, other (Abdominal BRUCE drain in place with clear, SS drainage) Extremity: Normal Capillary Refill, Normal Range of Motion Neurologic/Psychiatric: Alert, Other (Episodes of confusion) Skin: Normal Color, Warm/Dry, Other (Abdominal incisions C/D/I) Results Lab Laboratory Tests 11/11/20 19:30: B-Type Natriuretic Peptide 26.8 11/12/20 06:25: White Blood Count 13.6H, Red Blood Count 3.70L, Hemoglobin 11.1L, Hematocrit 34L , Mean Corpuscular Volume 91, Mean Corpuscular Hemoglobin 30, Mean Corpuscular Hemoglobin Concent 33, Red Cell Distribution Width 13.4, Platelet Count 298, Mean Platelet Volume 10.3, Sodium Level 137, Potassium Level 3.1L, Chloride Level 102, Carbon Dioxide Level 24, Anion Gap 11, Blood Urea Nitrogen 4L, Creatinine 0.66, Estimat Glomerular Filtration Rate 87, BUN/Creatinine Ratio 6, Glucose Level 156H, Calcium Level 7.6L, Corrected Calcium 8.9, Total Bilirubin 0.4, Aspartate Amino Transf (AST/SGOT) 26, Alanine Aminotransferase (ALT/SGPT) 40, Alkaline Phosphatase 69, Total Protein 5.5L, Albumin 2.4L Microbiology 11/12/20 C. difficile GDH Antigen & Toxins - Final, Complete Assessment/Plan Assessment/Plan Assess & Plan/Chief Complaint A 75 year old female with an ileus s/p lap appy for perf appendicitis. correct electrolytes. ambulate. VSS WBC - 13.6 Continue IV abx, pain, and nausea medications Having bowel movements Ok to DC from surgical standpoint once ok with medical - can be DC'd with BRUCE drain and follow up next week in office for removal LUIS GARCIA APRN Nov 12, 2020 17:22
[2020-11-12 19:15] VITALS: BP 175/30
[2020-11-12] MEDS: ENOXAPARIN 40 MG/0.4 ML (LOVENOX) SYR SC SCH (19:22)
[2020-11-12] MEDS ORDERED: DIVALPROEX 250 MG DELAYED RELEASE (DEPAKOTE) TAB PO SCH (21:00)
[2020-11-12 23:42] VITALS: BP 155/74
[2020-11-13] MEDS: PIPERACILLIN/TAZOBACTAM (BULK) 4.5 GM in NS (IVPB) 100 ML IV SCH ×3 (02:13→18:41)
[2020-11-13 03:31] VITALS: BP 150/67
[2020-11-13 04:54] LABS: HEMATOCRIT 32 % (35-52); HEMOGLOBIN 10.8 g/dL (11.5-16.0); MEAN CORPUSCULAR HEMOGLOBIN 30 pg (25-34); MEAN CORPUSCULAR HGB CONC 33 g/dL (32-36); MEAN CORPUSCULAR VOLUME 90 fL (80-99); MEAN PLATELET VOLUME 10.3 fL (9.0-12.2); PLATELET COUNT 291 10^3/uL (130-400); WHITE BLOOD COUNT 12.8 10^3/uL (4.3-11.0)
[2020-11-13 05:00] LABS: POTASSIUM 3.3 MMOL/L (3.6-5.0)
[2020-11-13 05:01] LABS: CALCIUM 7.8 MG/DL (8.5-10.1)
[2020-11-13 05:05] LABS: CREATININE SERUM 0.59 MG/DL (0.60-1.30)
[2020-11-13] MEDS: VENlafaxine XR 75 MG (EFFEXOR XR) CAP PO SCH (06:23)
[2020-11-13 08:00] VITALS: BP 168/77
[2020-11-13] MEDS: PANTOPRAZOLE 40 MG (PROTONIX) VIAL IV SCH (09:04)
--- NOTE | 2020-11-13 09:05 | Progress Note ---
Subjective Subjective Date Seen by Provider: Nov 13, 2020 Time Seen by Provider: 09:30 Fwup post-op ileus, S/P Lap Appy due to ruptured appendicitis, dementia with behavior disorder, hypokalemia, leukocytosis. Patient is alert, but does not respond to questions. Nursing reported patient was able to tolerate half her meal and had a bowel movement this morning. Review of Systems ROS Unable to Obtain: Patient does not answer questions Objective Exam Vital Signs Vital Signs Date Time Temp Pulse Resp B/P (MAP) Pulse Ox O2 Delivery O2 Flow Rate FiO2 11/13/20 08:00 36.1 85 28 168/77 (107) 97 Room Air 11/13/20 07:00 77 11/13/20 03:31 36.6 84 22 150/67 (94) 95 Room Air 11/13/20 01:00 84 11/12/20 23:42 36.5 87 20 155/74 (101) 96 Room Air 11/12/20 19:34 Room Air 11/12/20 19:15 35.7 88 28 175/30 (78) 97 Room Air 11/12/20 19:00 85 11/12/20 15:53 35.9 86 24 159/76 (103) 96 Room Air 11/12/20 13:28 87 11/12/20 12:00 35.9 100 22 128/79 (95) 96 Room Air I & O 11/13/20 07:00 Intake Total 1480 ml Output Total 3020 ml Balance -1540 ml General Appearance: No Apparent Distress, WD/WN HEENT: PERRL/EOMI Neck: Normal Inspection, Non Tender, Supple Respiratory: Chest Non Tender, Lungs Clear, No Accessory Muscle Use, No Respiratory Distress Cardiovascular: No JVD Gastrointestinal: Non Tender, Other (BRUCE drain in place with serosanguinous drainage) Extremity: Non Tender, No Calf Tenderness, Pedal Edema (R side), Swelling (Minimal R sided) Neurologic/Psychiatric: Alert, Other (Episodes of confusion) Skin: Normal Color, Warm/Dry, Other (Abdominal incisions C/D/I) Results Lab Laboratory Tests 11/13/20 04:30: White Blood Count 12.8H, Red Blood Count 3.62L, Hemoglobin 10.8L, Hematocrit 32L , Mean Corpuscular Volume 90, Mean Corpuscular Hemoglobin 30, Mean Corpuscular Hemoglobin Concent 33, Red Cell Distribution Width 13.0, Platelet Count 291, Mean Platelet Volume 10.3, Sodium Level 134L, Potassium Level 3.3L, Chloride Level 100, Carbon Dioxide Level 23, Anion Gap 11, Blood Urea Nitrogen 3L, Creatinine 0.59L, Estimat Glomerular Filtration Rate 99, BUN/Creatinine Ratio 5, Glucose Level 118H, Calcium Level 7.8L Microbiology 11/12/20 C. difficile GDH Antigen & Toxins - Final, Complete Assessment/Plan Assessment/Plan Assessment and Plan 1. Post-op Ileus--has pulled out 2 NG tubes, start oral hydrocodone and use f entanyl for severe pain only, Reglan discontinued, lovenox for DVT prophylaxis, advance diet as tolerated, continue PT/OT 2. S/P Lap Appy due to Perforated Appendicitis--BRUCE drain still in place 3. Dementia with Behavior Disorder-- resumed some home meds, Effexor restarted, DC Depakote due to lethargy this morning 4. Hypertension with current tachycardia--continue replace potassium and monitor on telemetry, on metoprolol, Add losartan 5. Hypokalemia--continue to replace potassium and recheck lab in AM, potassium trending upward at 3.3 6. Leukocytosis--on Zosyn, WBC count at 12.8, C. diff negative 7. Edema/Third Spacing--given IV lasix on admit and has diuresed well Supervisory-Addendum Brief Verification & Attestation Participated in pt care: history, physical Personally performed: exam, history, supervision of care Care discussed with: Medical Student Procedures: n/a Patient seen and assessed and agree with above exam, assessment and plan of care. Will add oral potassium and add losartan for BP. Will DC depakote due to grogginess. Needs to stay at least 1-2 more days for strengthening, IV abx and assessing appetite. SANDI NAVARRO Nov 13, 2020 09:05 NICANOR ESTRELLA DO Nov 13, 2020 09:32
[2020-11-13] MEDS ORDERED: HYDROcodone/APAP 5 MG/325 MG (LORTAB) TAB PO PRN (09:30)
[2020-11-13] MEDS ORDERED: KCL 20 MEQ TAB (K-DUR) PO ONE (09:30)
[2020-11-13] MEDS ORDERED: LOSARTAN 25 MG (COZAAR) TAB PO ONE (09:30)
--- NOTE | 2020-11-13 10:49 | Progress Note ---
Subjective Date Seen by a Provider: Nov 13, 2020 Time Seen by a Provider: 10:00 Subjective/Events-last exam doing ok. communication barrier. appears well and able to eat more however very weak/fatigued. Objective Exam Vital Signs Date Time Temp Pulse Resp B/P (MAP) Pulse Ox O2 Delivery O2 Flow Rate FiO2 11/13/20 08:00 36.1 85 28 168/77 (107) 97 Room Air 11/13/20 08:00 Room Air 11/13/20 07:00 77 11/13/20 03:31 36.6 84 22 150/67 (94) 95 Room Air 11/13/20 01:00 84 11/12/20 23:42 36.5 87 20 155/74 (101) 96 Room Air 11/12/20 19:34 Room Air 11/12/20 19:15 35.7 88 28 175/30 (78) 97 Room Air 11/12/20 19:00 85 11/12/20 15:53 35.9 86 24 159/76 (103) 96 Room Air 11/12/20 13:28 87 11/12/20 12:00 35.9 100 22 128/79 (95) 96 Room Air I & O 11/13/20 07:00 Intake Total 1480 ml Output Total 3020 ml Balance -1540 ml Capillary Refill : Less Than 3 Seconds General Appearance: No Apparent Distress HEENT: PERRL/EOMI Neck: Full Range of Motion Respiratory: Decreased Breath Sounds Cardiovascular: Regular Rate, Rhythm Gastrointestinal: normal bowel sounds, soft, tenderness Extremity: Normal Capillary Refill Neurologic/Psychiatric: Alert, Oriented x3 Skin: Normal Color Lymphatic: No Adenopathy Results Lab Laboratory Tests 11/13/20 04:30: White Blood Count 12.8H, Red Blood Count 3.62L, Hemoglobin 10.8L, Hematocrit 32L , Mean Corpuscular Volume 90, Mean Corpuscular Hemoglobin 30, Mean Corpuscular Hemoglobin Concent 33, Red Cell Distribution Width 13.0, Platelet Count 291, Mean Platelet Volume 10.3, Sodium Level 134L, Potassium Level 3.3L, Chloride Level 100, Carbon Dioxide Level 23, Anion Gap 11, Blood Urea Nitrogen 3L, Creatinine 0.59L, Estimat Glomerular Filtration Rate 99, BUN/Creatinine Ratio 5, Glucose Level 118H, Calcium Level 7.8L Microbiology 11/12/20 C. difficile GDH Antigen & Toxins - Final, Complete Assessment/Plan Assessment/Plan Assess & Plan/Chief Complaint ileus s/p lap appy for perf appendicitis. correct electrolytes. ambulate. dys3 diet. very weak/fatigued. will need inpatient care over weekend. will remove drain as OP. AMMON GUAJARDO MD Nov 13, 2020 10:49
--- NOTE | 2020-11-13 11:37 | Physical Therapy Daily Note ---
PT Daily Note-Current Subjective Patient is very lethargic and states, "I don't feel good." RN present and reports decline in alertness and function. Mental Status Attachments: Vyas Catheter, IV Transfers SCALE: Activities may be completed with or without assistive devices. 0-Dnzmzohbyf-pswpwmz completes the activity by him/herself with no assistance from a helper. 5-Set-up or Clean-up Assistance-helper sets up or cleans up; patient completes activity. [place] assists only prior to or following the activity. 4-Supervision or Touching Assistance-helper provides verbal cues and/or touching/steadying and/or contact guard assistance as patient completes ac tivity. Assistance may be provided throughout the activity or intermittently. 3-Partial/Moderate Assistance-helper does LESS THAN HALF the effort. [place] lifts, holds or supports trunk or limbs, but provides less than half the effort. 2-Substantial/Maximal Assistance-helper does MORE THAN HALF the effort. [place] lifts or holds trunk or limbs and provides more than half the effort. 2-Cakfynpng-tkgfoj does ALL the effort. Patient does none of the effort to complete the activity. Or, the assistance of 2 or more helpers is required for the patient to complete the activity. If activity was not attempted, code reason: 7-Patient Refused. 9-Not Applicable-not attempted and the patient did not perform the activity before the current illness, exacerbation or injury. 10-Not Attempted due to Environmental Limitations-(lack of equipment, weather restraints, etc.). 88-Not Attempted due to Medical Conditions or Safety Concerns. Roll Left & Right (QC): 1 (x 2) patient repositioned to side lying left with pillow placement behind back and between LE's. Exercises Supine Ex: Ankle pumps (right ankle stretching), Heel Slides, Straight leg raise Supine Reps: 15 (PROM bilateral LE) Assessment Current Status: Poor Progress PT Residential Goals Air Battle Manager Goals PT Residential Goals Time Frame: Nov 21, 2020 Roll Left & Right (QC): 2 Sit to Lying (QC): 2 Lying-Sitting on Side/Bed(QC): 2 Sit to Stand (QC): 2 Chair/Moi-qw-Gnofo Xfer(QC): 2 PT Plan Treatment/Plan Treatment Plan: Continue Plan of Care Treatment Plan: Bed Mobility, Education, Functional Activity [place], Functional Strength, Gait, Safety, Therapeutic Exercise, Transfers Treatment Duration: Nov 21, 2020 Frequency: 6 times per week Estimated Hrs Per Day: .25 hour per day Time/GCodes Time In: 1041 Time Out: 1056 Total Billed Treatment Time: 15 Total Billed Treatment 1 visit EX 15 min PIPPA HSIEH PT Nov 13, 2020 11:37
[2020-11-13 12:00] VITALS: BP 140/66
--- NOTE | 2020-11-13 14:01 | Occupational Ther Daily Note ---
OT Current Status-Daily Note Subjective Pt lying in bed with eyes open. Pt smiled at TUCKER when talking. Pt stated yes to all questions. Mental Status/Objective Patient Orientation: Person, Confused Attachments: Vyas Catheter, IV ADL-Treatment Attempted to get pt to follow simple directions, was not able to complete. When given grooming items, pt able to complete without direction. Pt then began to just stare into space and not acknowledge TUCKER. After session, pt lying in bed with call light/phone in reach. All needs met in room. Therapy Code Descriptions/Definitions Functional [place] Measure: 0=Not Assessed/NA 4=Minimal Assistance 1=Total Assistance 5=Supervision or Setup 2=Maximal Assistance 6=Modified [place] 3=Moderate Assistance 7=Complete IndependenceSCALE: Activities may be completed with or without assistive devices. 6-Tqvpmmealq-bwqpqhq completes the activity by him/herself with no assistance from a helper. 5-Set-up or Clean-up Assistance-helper sets up or cleans up; patient completes activity. [place] assists only prior to or following the activity. 4-Supervision or Touching Assistance-helper provides verbal cues and/or touching/steadying and/or contact guard assistance as patient completes activity. Assistance may be provided throughout the activity or intermittently. 3-Partial/Moderate Assistance-helper does LESS THAN HALF the effort. [place] lifts, holds or supports trunk or limbs, but provides less than half the effort. 2-Substantial/Maximal Assistance-helper does MORE THAN HALF the effort. [place] lifts or holds trunk or limbs and provides more than half the effort. 1-Htdlmfhhi-rroszy does ALL the effort. Patient does none of the effort to complete the activity. Or, the assistance of 2 or more helpers is required for the patient to complete the activity. If activity was not attempted, code reason: 7-Patient Refused. 9-Not Applicable-not attempted and the patient did not perform the activity before the current illness, exacerbation or injury. 10-Not Attempted due to Environmental Limitations-(lack of equipment, weather restraints, etc.). 88-Not Attempted due to Medical Conditions or Safety Concerns. Oral Hygiene (QC): 5 OT Air Conditioning Specialist Goals Air Conditioning Specialist Goals Time Frame: Nov 27, 2020 Eating (QC): 3 Oral Hygiene (QC): 3 Toileting Hygiene (QC): 2 Shower/Bathe Self (QC): 2 Upper Body Dressing (QC): 3 Lower Body Dressing (QC): 2 On/Off Footwear (QC): 2 Additional Goals: 1-Demonstrate ADL Tasks, 2-Verbalize Understanding, 3- ImproveStrength/[place] 1=Demonstrate adherence to instructed precautions during ADL tasks. 2=Patient will verbalize/demonstrate understanding of assistive devices/modifications for ADL. 3=Patient will improve strength/tolerance for activity to enable patient to perform ADL's. OT Education/Plan Problem List/Assessment Assessment: Decreased Activ Tolerance, Decreased Safety Aware, Impaired Cognition, Impaired Self-Care Skills Discharge Recommendations Plan/Recommendations: Continue POC Treatment Plan/Plan of Care Patient would benefit from OT for education, treatment and training to promote independence in ADL's, mobility, safety and/or upper extremity function for ADL's. Plan of Care: ADL Retraining, Functional Mobility, UE Funct Exercise/Act Treatment Duration: Nov 27, 2020 Frequency: 5 times per week Estimated Hrs Per Day: .25 hour per day Rehab Potential: Guarded Time/GCodes Start Time: 13:21 Stop Time: 13:31 Total Time Billed (hr/min): 10 Billed Treatment Time 1 visit-ADL 1 (10 min) MISHA KC Nov 13, 2020 14:01
--- NOTE | 2020-11-13 14:26 | Physician Query Clarification ---
Physician Query-General Query to Physician: The medical record reflects the following clinical evidence: Clinical Indicators: decreased Medical Or Surgical Instrument Maker strength bilateral per nursing, "edema, third spacing" per physician, electrolyte abnormalities Admission Albumin 2.4, Weight increase of >7 Kgs since 11/04/2020, possibly due to third spaced fluids Risk Factor(s): Dementia, "feeder", Total Care, Recent abdominal surgery. possible SBO Treatment: Electrolyte replacements, NG/Bowel Decompression, Diet advanced to Mechanical soft, monitoring of intake 1. Unspecified severe protein-calorie malnutrition 2. Other explanation of clinical findings 3. Unable to determine (no explanation for clinical findings) Please clarify and document your clinical opinion in the progress notes and discharge summary including the definitive and/or presumptive diagnosis, (suspected or probable), related to the above clinical findings. Please include clinical findings supporting your diagnosis. Merlyn Cortez MSN, RN Clinical Fixture Designer [phone] [email or web address] PHYSICIAN RESPONSE: Based on the clinical findings in the record, please respond to the query above on this document as an addendum. Physician Response: Physician Response 1. If you have questions please contact: Adaptive Physical Education Teacher: Ext: Thank you for your time and cooperation. Clinical Fixture Designer/Adaptive Physical Education Teacher This is a permanent part of the medical record MERLYN CORTEZ Nov 13, 2020 14:26 AMMON GUAJARDO MD Nov 16, 2020 17:16
[2020-11-13 16:00] VITALS: BP 188/95
[2020-11-13] MEDS: D5 1/2 NS W/KCL 20 MEQ/L 1,000 ML IV SCH (17:56)
[2020-11-13] MEDS: ENOXAPARIN 40 MG/0.4 ML (LOVENOX) SYR SC SCH (18:41)
[2020-11-13 20:00] VITALS: BP 178/77
[2020-11-14] VITALS: BP 150/80
[2020-11-14] MEDS: D5 1/2 NS W/KCL 20 MEQ/L 1,000 ML IV SCH (02:34)
[2020-11-14] MEDS: PIPERACILLIN/TAZOBACTAM (BULK) 4.5 GM in NS (IVPB) 100 ML IV SCH ×3 (03:46→18:13)
[2020-11-14] MEDS: fentaNYL INJ 100 MCG/2 ML AMP IV PRN (03:52)
[2020-11-14] MEDS: VENlafaxine XR 75 MG (EFFEXOR XR) CAP PO SCH (05:27)
[2020-11-14] MEDS: KCL 20 MEQ TAB (K-DUR) PO SCH (05:27)
--- NOTE | 2020-11-14 07:45 | Progress Note - Surgery ---
GUILLE DIETZ 11/14/20 0745: Subjective Time Seen by a Provider: 07:00 Subjective/Events-last exam Patient is doing well, she awakened when I entered the room and was trying to communicate with me. Language barrier so unable to obtain an accurate history. Objective Exam Vital Signs Date Time Temp Pulse Resp B/P (MAP) Pulse Ox O2 Delivery O2 Flow Rate FiO2 11/14/20 07:00 73 11/14/20 04:24 36.4 86 18 97 Room Air 11/14/20 01:00 80 11/14/20 00:00 36.3 76 18 150/80 (103) 96 Room Air 11/13/20 20:00 Room Air 11/13/20 20:00 36.8 80 28 178/77 (110) 96 Room Air 11/13/20 19:00 80 11/13/20 16:00 36.7 84 26 188/95 (126) 96 Room Air 11/13/20 12:45 77 11/13/20 12:00 35.8 78 16 140/66 (90) 94 Room Air 11/13/20 08:00 36.1 85 28 168/77 (107) 97 Room Air 11/13/20 08:00 Room Air I & O 11/14/20 07:00 Intake Total 890 ml Output Total 4295 ml Balance -3405 ml Capillary Refill : Less Than 3 Seconds General Appearance: No Apparent Distress HEENT: PERRL/EOMI Neck: Full Range of Motion, Normal Inspection Respiratory: No Accessory Muscle Use, No Respiratory Distress, Decreased Breath Sounds Cardiovascular: Regular Rate, Rhythm Gastrointestinal: normal bowel sounds, soft, tenderness Extremity: Normal Capillary Refill Neurologic/Psychiatric: Alert Skin: Normal Color Lymphatic: No Adenopathy Results Lab Microbiology 11/12/20 C. difficile GDH Antigen & Toxins - Final, Complete Assessment/Plan Assessment/Plan Assessment/Plan ileus s/p lap appy for perf appendicitis: on zosyn correct electrolytes: sodium at 134 and potassium at 3.3 Leukocytosis: Her WBC has been dropping, currently at 12.8 down from 13.6 ambulate. dys3 diet. very weak/fatigued. will need inpatient care over weekend. will remove drain as OP. KODY FIORE DO 11/14/20 1248: Subjective Subjective/Events-last exam Patient abdomen is feeling good. She is tolerating diet. Having bowel function. Drain is serosanguineous. Objective Exam General Appearance: No Apparent Distress HEENT: PERRL/EOMI, Normal ENT Inspection Neck: Full Range of Motion, Normal Inspection Respiratory: Chest Non Tender, No Accessory Muscle Use, No Respiratory Distress Gastrointestinal: soft, distended (Minimal), tenderness (At incisions, drain serosanguineous) Extremity: Non Tender, No Calf Tenderness Neurologic/Psychiatric: Alert, Normal Mood/Affect Skin: Normal Color, Warm/Dry Lymphatic: No Adenopathy Assessment/Plan Assessment/Plan Assessment/Plan ileus s/p lap appy for perf appendicitis: on zosyn Hyponatremia Hypokalemia Leukocytosis check labs ambulate. dys3 diet. Patient to require physical therapy. Patient to continue with medical management. Supervisory-Addendum Brief Verification & Attestation Participated in pt care: history, MDM, physical Personally performed: exam, history, MDM, supervision of care Care discussed with: Medical Student Procedures: n/a Results interpretation: Verified all documentation Verification and Attestation of Medical Student E/M Service A medical student performed and documented this service in my presence. I reviewed and verified all information documented by the medical student and made modifications to such information, when appropriate. I personally performed the physical exam and medical decision making. Kody Fiore, Nov 14, 2020,12:48 GUILLE DIETZ Nov 14, 2020 07:45 KODY FIORE DO Nov 14, 2020 12:48
[2020-11-14 08:00] VITALS: BP 161/87
[2020-11-14] MEDS: LOSARTAN 25 MG (COZAAR) TAB PO SCH (08:31)
[2020-11-14] MEDS: PANTOPRAZOLE 40 MG (PROTONIX) VIAL IV SCH (08:31)
--- NOTE | 2020-11-14 10:26 | Physical Therapy Daily Note ---
PT Daily Note-Current Subjective Pt smiling, non verbal. Pt repeats this therapist's name. Pt appears agreeable to therapy by smiling throughout. Mental Status Patient Orientation: Non-Verbal/Aphasic Transfers SCALE: Activities may be completed with or without assistive devices. 5-Bsglqncvfn-krmneli completes the activity by him/herself with no assistance from a helper. 5-Set-up or Clean-up Assistance-helper sets up or cleans up; patient completes activity. [place] assists only prior to or following the activity. 4-Supervision or Touching Assistance-helper provides verbal cues and/or touching/steadying and/or contact guard assistance as patient completes activity. Assistance may be provided throughout the activity or intermittently. 3-Partial/Moderate Assistance-helper does LESS THAN HALF the effort. [place] lifts, holds or supports trunk or limbs, but provides less than half the effort. 2-Substantial/Maximal Assistance-helper does MORE THAN HALF the effort. [place] lifts or holds trunk or limbs and provides more than half the effort. 3-Qwrbqvsug-sqajbo does ALL the effort. Patient does none of the effort to complete the activity. Or, the assistance of 2 or more helpers is required for the patient to complete the activity. If activity was not attempted, code reason: 7-Patient Refused. 9-Not Applicable-not attempted and the patient did not perform the activity before the current illness, exacerbation or injury. 10-Not Attempted due to Environmental Limitations-(lack of equipment, weather restraints, etc.). 88-Not Attempted due to Medical Conditions or Safety Concerns. Treatments Pt transfer to EOB with max A of 2. Pt transferred bed->recliner max A of 1. Pt repositioned max A and supported with pillows. Pt nurse aid present. Assessment Current Status: Fair Progress Good tolerance to bed mobility and transfer. Pt smiling and no indication of pain. All needs met. Call light in hand. PT Hull Builder Goals Hull Builder Goals PT Hull Builder Goals Time Frame: Nov 21, 2020 Roll Left & Right (QC): 2 Sit to Lying (QC): 2 Lying-Sitting on Side/Bed(QC): 2 Sit to Stand (QC): 2 Chair/Cty-ib-Qycio Xfer(QC): 2 PT Plan Treatment/Plan Treatment Plan: Continue Plan of Care Treatment Plan: Bed Mobility, Education, Functional Activity Morgan, Functional Strength, Gait, Safety, Therapeutic Exercise, Transfers Treatment Duration: Nov 21, 2020 Frequency: 6 times per week Estimated Hrs Per Day: .25 hour per day Time/GCodes Time In: 1000 Time Out: 1015 Total Billed Treatment Time: 15 Total Billed Treatment 1, FA 15' JOSH REYNOLDS CPTA Nov 14, 2020 10:26
--- NOTE | 2020-11-14 10:59 | Progress Note - Hospitalist ---
Subjective HPI/CC On Admission Date Seen by Provider: Nov 14, 2020 Time Seen by Provider: 10:54 Subjective/Events-last exam Patient reports doing ok. No complaints. Objective Exam Vital Signs Vital Signs Date Time Temp Pulse Resp B/P (MAP) Pulse Ox O2 Delivery O2 Flow Rate FiO2 11/14/20 09:00 Room Air 11/14/20 08:00 36.2 81 24 161/87 (111) 97 Capillary Refill : Less Than 3 Seconds General Appearance: No Apparent Distress, WD/WN Respiratory: Lungs Clear, No Respiratory Distress Cardiovascular: Regular Rate, Rhythm, No Murmur Results/Procedures Lab Patient resulted labs reviewed. Assessment/Plan Assessment and Plan Assess & Plan/Chief Complaint 1. Post-op Ileus--has pulled out 2 NG tubes, Continue oral hydrocodone and use fentanyl for severe pain only, Reglan discontinued, has had multiple BMs, lovenox for DVT prophylaxis, advance diet as tolerated currently on Dys3, continue PT/OT 2. S/P Lap Appy due to Perforated Appendicitis- management per surgery 3. Dementia with Behavior Disorder-- resumed some home meds, Effexor restarted, DC Depakote due to lethargy this morning 4. Hypertension with current tachycardia--continue replace potassium and monitor on telemetry, on metoprolol and losartan, BP improving 5. Hypokalemia--labs pending this AM 6. Leukocytosis--on Zosyn, WBC count at 12.8, C. diff negative, CBC pending this AM 7. Edema/Third Spacing--DC IVF CONY PANG MD Nov 14, 2020 10:59
[2020-11-14 11:22] LABS: HEMATOCRIT 34 % (35-52); HEMOGLOBIN 11.4 g/dL (11.5-16.0); MEAN CORPUSCULAR HEMOGLOBIN 30 pg (25-34); MEAN CORPUSCULAR HGB CONC 33 g/dL (32-36); MEAN CORPUSCULAR VOLUME 90 fL (80-99); MEAN PLATELET VOLUME 9.9 fL (9.0-12.2); PLATELET COUNT 314 10^3/uL (130-400); WHITE BLOOD COUNT 10.7 10^3/uL (4.3-11.0)
[2020-11-14 11:36] VITALS: BP 147/83
[2020-11-14 13:10] LABS: POTASSIUM 3.8 MMOL/L (3.6-5.0)
[2020-11-14 13:11] LABS: CALCIUM 8.3 MG/DL (8.5-10.1)
[2020-11-14 13:15] LABS: CREATININE SERUM 0.59 MG/DL (0.60-1.30)
[2020-11-14 13:18] LABS: MAGNESIUM 1.8 MG/DL (1.6-2.4)
[2020-11-14 16:00] VITALS: BP 158/74
[2020-11-14] MEDS: ENOXAPARIN 40 MG/0.4 ML (LOVENOX) SYR SC SCH (18:13)
[2020-11-14 19:49] VITALS: BP 145/84
[2020-11-14 23:26] VITALS: BP 156/78
[2020-11-15 03:41] VITALS: BP 158/80
[2020-11-15] MEDS: PIPERACILLIN/TAZOBACTAM (BULK) 4.5 GM in NS (IVPB) 100 ML IV SCH ×2 (04:36→11:38)
[2020-11-15 05:57] LABS: HEMATOCRIT 36 % (35-52); HEMOGLOBIN 12.3 g/dL (11.5-16.0); MEAN CORPUSCULAR HEMOGLOBIN 30 pg (25-34); MEAN CORPUSCULAR HGB CONC 34 g/dL (32-36); MEAN CORPUSCULAR VOLUME 89 fL (80-99); MEAN PLATELET VOLUME 10.2 fL (9.0-12.2); PLATELET COUNT 315 10^3/uL (130-400); WHITE BLOOD COUNT 9.7 10^3/uL (4.3-11.0)
[2020-11-15 06:12] LABS: POTASSIUM 3.5 MMOL/L (3.6-5.0)
[2020-11-15 06:13] LABS: CALCIUM 8.1 MG/DL (8.5-10.1)
[2020-11-15] MEDS: KCL 20 MEQ TAB (K-DUR) PO SCH (06:15)
[2020-11-15] MEDS: VENlafaxine XR 75 MG (EFFEXOR XR) CAP PO SCH (06:15)
[2020-11-15 06:18] LABS: CREATININE SERUM 0.58 MG/DL (0.60-1.30)
--- NOTE | 2020-11-15 08:05 | Progress Note - Surgery ---
GUILLE DIETZ 11/15/20 0805: Subjective Time Seen by a Provider: 07:45 Subjective/Events-last exam Pt is sleeping, has dementia and language barrier so difficulty to obtain accurate history. She had a bowel movement yesterday and one today morning. Objective Exam Vital Signs Date Time Temp Pulse Resp B/P (MAP) Pulse Ox O2 Delivery O2 Flow Rate FiO2 11/15/20 07:00 83 11/15/20 03:41 36.7 85 20 158/80 (106) 98 Room Air 11/15/20 01:00 83 11/14/20 23:26 36.5 83 20 156/78 (104) 95 Room Air 11/14/20 19:50 Room Air 11/14/20 19:49 35.9 91 18 145/84 (104) 97 Room Air 11/14/20 19:00 90 11/14/20 16:00 35.7 84 18 158/74 (102) 95 Room Air 11/14/20 13:00 76 11/14/20 11:36 36.2 82 24 147/83 (104) 98 Room Air 11/14/20 09:00 Room Air I & O 11/15/20 07:00 Intake Total 820 ml Output Total 3260 ml Balance -2440 ml Capillary Refill : Less Than 3 Seconds General Appearance: No Apparent Distress HEENT: PERRL/EOMI, Normal ENT Inspection Neck: Full Range of Motion, Normal Inspection Respiratory: Chest Non Tender, No Accessory Muscle Use, No Respiratory Distress Cardiovascular: Regular Rate, Rhythm, No Murmur Gastrointestinal: soft, distended (Minimal), tenderness (At incisions, drain serosanguineous) Extremity: Non Tender, No Calf Tenderness Neurologic/Psychiatric: Alert, Normal Mood/Affect Skin: Normal Color, Warm/Dry Lymphatic: No Adenopathy Results Lab Laboratory Tests 11/14/20 11:10: White Blood Count 10.7, Red Blood Count 3.80, Hemoglobin 11.4L, Hematocrit 34L, Mean Corpuscular Volume 90, Mean Corpuscular Hemoglobin 30, Mean Corpuscular Hemoglobin Concent 33, Red Cell Distribution Width 13.1, Platelet Count 314, Mean Platelet Volume 9.9 11/14/20 12:35: Sodium Level 133L, Potassium Level 3.8, Chloride Level 101, Carbon Dioxide Level 22, Anion Gap 10, Blood Urea Nitrogen 6L, Creatinine 0.59L, Estimat Glomerular Filtration Rate 99, BUN/Creatinine Ratio 10, Glucose Level 175H, Calcium Level 8.3L, Magnesium Level 1.8 11/15/20 05:34: White Blood Count 9.7, Red Blood Count 4.07, Hemoglobin 12.3, Hematocrit 36, Mean Corpuscular Volume 89, Mean Corpuscular Hemoglobin 30, Mean Corpuscular Hemoglobin Concent 34, Red Cell Distribution Width 13.1, Platelet Count 315, Mean Platelet Volume 10.2, Sodium Level 135, Potassium Level 3.5L, Chloride Level 102, Carbon Dioxide Level 22, Anion Gap 11, Blood Urea Nitrogen 7, Creatinine 0.58L, Estimat Glomerular Filtration Rate 101, BUN/Creatinine Ratio 12, Glucose Level 112H, Calcium Level 8.1L Microbiology 11/12/20 C. difficile GDH Antigen & Toxins - Final, Complete Assessment/Plan Assessment/Plan Assessment/Plan ileus s/p lap appy for perf appendicitis: on zosyn, monitor for abdominal distention and bowel movements Hyponatremia: current level of 135 Hypokalemia: current level of 3.5 down form 3.8 on 11/14. Leukocytosis check labs: 9.7 WBC down from 10.7 on 11/14, and continues to trend downward over the last several days Patient to require physical therapy and needs to ambulate. Patient to continue with medical management. KODY FIORE DO 11/15/20 1228: Subjective Subjective/Events-last exam Sitting in chair. Has bowel function. Not having any significant pain. Tolerating diet. Denies n/v fever sweats chills shortness of breath or chest pain. Drain serous. Objective Exam General Appearance: No Apparent Distress HEENT: PERRL/EOMI, Normal ENT Inspection Neck: Normal Inspection, Non Tender, Supple Respiratory: Chest Non Tender, No Accessory Muscle Use, No Respiratory Distress Cardiovascular: Regular Rate, Rhythm, No JVD Gastrointestinal: soft, tenderness (At incisions, drain serous) Extremity: Non Tender, No Calf Tenderness Neurologic/Psychiatric: Alert, Normal Mood/Affect Skin: Normal Color, Warm/Dry Lymphatic: No Adenopathy Assessment/Plan Assessment/Plan Assessment/Plan ileus s/p lap appy for perf appendicitis: on zosyn, drain serous Hyponatremia: current level of 135 Hypokalemia: current level of 3.5 down form 3.8 on 11/14. Leukocytosis check labs: 9.7 WBC down from 10.7 on 11/14, and continues to trend downward over the last several days Patient to require physical therapy and needs to ambulate. Patient to continue with medical management. Supervisory-Addendum Brief Verification & Attestation Participated in pt care: history, MDM, physical Personally performed: exam, history, MDM, supervision of care Care discussed with: Medical Student Procedures: n/a Results interpretation: Verified all documentation Verification and Attestation of Medical Student E/M Service A medical student performed and documented this service in my presence. I reviewed and verified all information documented by the medical student and made modifications to such information, when appropriate. I personally performed the physical exam and medical decision making. Kody Fiore, Nov 15, 2020,12:28 GUILLE DIETZ Nov 15, 2020 08:05 KODY FIORE DO Nov 15, 2020 12:28
[2020-11-15] MEDS: PANTOPRAZOLE 40 MG (PROTONIX) VIAL IV SCH (08:20)
[2020-11-15] MEDS: LOSARTAN 25 MG (COZAAR) TAB PO SCH (08:20)
[2020-11-15 08:25] VITALS: BP 144/79
--- NOTE | 2020-11-15 13:24 | Progress Note - Hospitalist ---
Subjective HPI/CC On Admission Date Seen by Provider: Nov 15, 2020 Time Seen by Provider: 13:22 Subjective/Events-last exam Pt states she is doing fine. No complaints. Objective Exam Vital Signs Vital Signs Date Time Temp Pulse Resp B/P (MAP) Pulse Ox O2 Delivery O2 Flow Rate FiO2 11/15/20 12:47 92 11/15/20 08:25 36.8 28 144/79 (100) 97 Room Air Capillary Refill : Less Than 3 Seconds General Appearance: No Apparent Distress, Chronically ill Respiratory: Lungs Clear, No Respiratory Distress Cardiovascular: Regular Rate, Rhythm, No Murmur Results/Procedures Lab Laboratory Tests 11/15/20 05:34 Patient resulted labs reviewed. Assessment/Plan Assessment and Plan Assess & Plan/Chief Complaint 1. Post-op Ileus- resolved, Continue oral hydrocodone and use fentanyl for severe pain only (none need in over 24 hours), Reglan discontinued, has had multiple BMs, lovenox for DVT prophylaxis, diet currently on Dys3, continue PT/OT 2. S/P Lap Appy due to Perforated Appendicitis- management per surgery 3. Dementia with Behavior Disorder-- continuing some home meds, Effexor restarted, DC Depakote due to lethargy 4. Hypertension--continue replace potassium and monitor on telemetry, on metoprolol and losartan, BP improving 5. Hypokalemia--K 3.5 today, will replace 6. Leukocytosis--resolved, continue ZOsyn 7. Edema/Third Spacing--DC IVF CONY PANG MD Nov 15, 2020 13:24
[2020-11-15 16:00] VITALS: BP 132/79
[2020-11-15] MEDS: ENOXAPARIN 40 MG/0.4 ML (LOVENOX) SYR SC SCH (18:02)
[2020-11-15] MEDS: fentaNYL INJ 100 MCG/2 ML AMP IV PRN (20:17)
[2020-11-15] MEDS: ONDANSETRON 4 MG/2 ML (SDV) Z0FRAN IV PRN (20:17)
[2020-11-15] MEDS ORDERED: RT-ALBUTEROL/IPRATROPIUM 3 ML (DUONEB) VIAL ONE (20:36)
[2020-11-15] MEDS ORDERED: RT-ALBUTEROL/IPRATROPIUM 3 ML (DUONEB) VIAL INH PRN (20:45)
[2020-11-15] MEDS ORDERED: diphenhydrAMINE 25 MG TAB (BENADRYL) PO PRN (21:15)
[2020-11-16 00:12] VITALS: BP 132/82
[2020-11-16] MEDS: KCL 20 MEQ TAB (K-DUR) PO SCH (05:58)
[2020-11-16] MEDS: VENlafaxine XR 75 MG (EFFEXOR XR) CAP PO SCH (05:58)
[2020-11-16 08:00] VITALS: BP 145/82
[2020-11-16] MEDS: PANTOPRAZOLE 40 MG (PROTONIX) VIAL IV SCH (08:32)
[2020-11-16] MEDS: LOSARTAN 25 MG (COZAAR) TAB PO SCH (08:32)
[2020-11-16] MEDS ORDERED: PANT40TA52 PO (08:37)
[2020-11-16] MEDS ORDERED: MTP25TSR PO (08:37)
[2020-11-16] MEDS ORDERED: POTA20TA15 PO (08:39)
--- NOTE | 2020-11-16 08:41 | Discharge Inst-Skilled Nursing ---
Discharge Inst-Skilled NF Reconcile Patient Problems Problems Reviewed?: Yes Patient Instructions Patient Problems: Post-op ileus Consult/Follow Up/Orders Follow Up Appt.: This week with surgery for BRUCE drain removal and 1 week with ms Skilled NF Admit to: Certification (SNF) I certify that SNF services are required to be given on an inpatient basis because of the above named patient's need for group home care on a continuing basis for the conditions(s) for which he/she was receiving inpatient hospital services prior to his/her transfer to the SNF. [facility] Facility Order: Nerve Specialist-Evaluate & Treat, Physical Therapy-Evaluate & Treat, Speech Language-Evaluate & Treat Oxygen Delivery Method: Room Air Discharge Diet: ADA Diet Daily Activity as Tolerated: Yes Resuscitation Status: Full Code New & Resume Previous Orders Other Instructions Leave light catheter in place until BRUCE drain removed then DC light catheter Breanna Sweeney Nov 16, 2020 08:39 BREANNA SWEENEY DO Nov 16, 2020 08:41
--- NOTE | 2020-11-16 09:44 | Physical Therapy Daily Note ---
PT Daily Note-Current Subjective Patient more alert on this date and agrees to up in recliner, exercises and to eat breakfast. Mental Status Patient Orientation: Person Attachments: Drains, Vyas Catheter Transfers SCALE: Activities may be completed with or without assistive devices. 5-Uctvsfaeji-hynevdv completes the activity by him/herself with no assistance from a helper. 5-Set-up or Clean-up Assistance-helper sets up or cleans up; patient completes activity. [place] assists only prior to or following the activity. 4-Supervision or Touching Assistance-helper provides verbal cues and/or touching/steadying and/or contact guard assistance as patient completes activity. Assistance may be provided throughout the activity or intermittently. 3-Partial/Moderate Assistance-helper does LESS THAN HALF the effort. [place] lifts, holds or supports trunk or limbs, but provides less than half the effort. 2-Substantial/Maximal Assistance-helper does MORE THAN HALF the effort. [place] lifts or holds trunk or limbs and provides more than half the effort. 7-Gmixbkonh-hnoybj does ALL the effort. Patient does none of the effort to complete the activity. Or, the assistance of 2 or more helpers is required for the patient to complete the activity. If activity was not attempted, code reason: 7-Patient Refused. 9-Not Applicable-not attempted and the patient did not perform the activity before the current illness, exacerbation or injury. 10-Not Attempted due to Environmental Limitations-(lack of equipment, weather restraints, etc.). 88-Not Attempted due to Medical Conditions or Safety Concerns. Lying to Sitting/Side of Bed(Q: 2 Sit to Stand (QC): 2 Chair/Akw-bd-Zijld Xfer(QC): 2 Exercises Supine Ex: Ankle pumps, Heel Slides, Straight leg raise, Hip abd/add Supine Reps: 12 (AAROM bilateral LE) Seated Therapy Exercises: Long arc quads Seated Reps: 12 (AAROM bilateral LE) Treatments Assisted patient with feeding due to inability to perform herself Assessment Patient up in recliner with needs met. Increase activity as tolerated by patient. 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 Time Frame: Nov 21, 2020 Roll Left & Right (QC): 2 Sit to Lying (QC): 2 Lying-Sitting on Side/Bed(QC): 2 Sit to Stand (QC): 2 Chair/Iqs-zb-Lomxs Xfer(QC): 2 PT Plan Treatment/Plan Treatment Plan: Continue Plan of Care Treatment Plan: Bed Mobility, Education, Functional Activity [place], Functional Strength, Gait, Safety, Therapeutic Exercise, Transfers Treatment Duration: Nov 21, 2020 Frequency: 6 times per week Estimated Hrs Per Day: .25 hour per day Time/GCodes Time In: 900 Time Out: 923 Total Billed Treatment Time: 23 Total Billed Treatment 1 visit FA 8 min EX 15 min PIPPA HSIEH PT Nov 16, 2020 09:44
--- NOTE | 2020-11-16 11:52 | Occupational Ther Daily Note ---
OT Current Status-Daily Note Subjective Pt alert, sitting in recliner. Pt confused, oriented only to name. Will answer to yes no questions and smile. Mental Status/Objective Patient Orientation: Person, Confused Attachments: Drains, Vyas Catheter, IV ADL-Treatment After gathering supplies, pt able to set up own oral care and complete task by self with supervision. Pt able to wash face and upper body after set up. Assist to thread B UE's into hospital gown. Decreased AROM in R UE. After session, pt sitting in recliner with call light/phone. All needs met in room. Therapy Code Descriptions/Definitions Functional [place] Measure: 0=Not Assessed/NA 4=Minimal Assistance 1=Total Assistance 5=Supervision or Setup 2=Maximal Assistance 6=Modified [place] 3=Moderate Assistance 7=Complete IndependenceSCALE: Activities may be completed with or without assistive devices. 8-Bavznowrrr-xhunhbh completes the activity by him/herself with no assistance from a helper. 5-Set-up or Clean-up Assistance-helper sets up or cleans up; patient completes activity. [place] assists only prior to or following the activity. 4-Supervision or Touching Assistance-helper provides verbal cues and/or touching/steadying and/or contact guard assistance as patient completes activity. Assistance may be provided throughout the activity or intermittently. 3-Partial/Moderate Assistance-helper does LESS THAN HALF the effort. [place] lifts, holds or supports trunk or limbs, but provides less than half the effort. 2-Substantial/Maximal Assistance-helper does MORE THAN HALF the effort. [place] lifts or holds trunk or limbs and provides more than half the effort. 8-Qdfsdadiy-qzcldw does ALL the effort. Patient does none of the effort to complete the activity. Or, the assistance of 2 or more helpers is required for the patient to complete the activity. If activity was not attempted, code reason: 7-Patient Refused. 9-Not Applicable-not attempted and the patient did not perform the activity before the current illness, exacerbation or injury. 10-Not Attempted due to Environmental Limitations-(lack of equipment, weather restraints, etc.). 88-Not Attempted due to Medical Conditions or Safety Concerns. Oral Hygiene (QC): 4 OT Shelter Goals Shelter Goals Time Frame: Nov 27, 2020 Eating (QC): 3 Oral Hygiene (QC): 3 Toileting Hygiene (QC): 2 Shower/Bathe Self (QC): 2 Upper Body Dressing (QC): 3 Lower Body Dressing (QC): 2 On/Off Footwear (QC): 2 Additional Goals: 1-Demonstrate ADL Tasks, 2-Verbalize Understanding, 3- ImproveStrength/[place] 1=Demonstrate adherence to instructed precautions during ADL tasks. 2=Patient will verbalize/demonstrate understanding of assistive devices/modifications for ADL. 3=Patient will improve strength/tolerance for activity to enable patient to perform ADL's. OT Education/Plan Problem List/Assessment Assessment: Impaired Cognition, Impaired Self-Care Skills Discharge Recommendations Plan/Recommendations: Discharge/Goals Met (pt discharged today) Treatment Plan/Plan of Care Patient would benefit from OT for education, treatment and training to promote independence in ADL's, mobility, safety and/or upper extremity function for ADL's. Plan of Care: ADL Retraining, Functional Mobility, UE Funct Exercise/Act Treatment Duration: Nov 27, 2020 Frequency: 5 times per week Estimated Hrs Per Day: .25 hour per day Rehab Potential: Guarded Time/GCodes Start Time: 11:15 Stop Time: 11:30 Total Time Billed (hr/min): 15 Billed Treatment Time 1 visit-ADL 1 (15 min) MISHA KC Nov 16, 2020 11:52
[2020-11-16 12:05] VITALS: BP 145/82
--- NOTE | 2020-11-17 07:11 | Anesthesia-Procedure Note ---
Procedures/Interventions Procedure Start/Stop/Diagnosis Date of Procedure: Nov 05, 2020 Start Time: 13:03 Stop Time: 14:58 Additional Procedures Procedures ADDENDUM TO ANESTHESIA RECORD: ANESTHESIA END TIME [id number] KALEB CORTEZ CRNA Nov 17, 2020 07:11
--- NOTE | 2020-11-18 09:34 | Physician Query Clarification ---
PQ-Link Manifestation-Etiology Admission/Discharge Admission Date: Nov 10, 2020 at 04:30 Discharge Date: Nov 16, 2020 at 11:50 Dr. Guajardo, The medical record reflects the following clinical scenario: History/Risk Factors: perforated acute appendicitis s/p appendectomy 11/05 Clinical Findings: abdominal pain with distension. Dilated loops small bowel, abnormal bowel sounds, N/V Treatment: IVF, NG tube, IVP Fentanyl, IVP Reglan Question: Can you specify if the ileus is due to/associated with appendectomy? Please document a response in the Progress Note or Discharge Summary. 1. Yes - ileus is due to/associated with appendectomy. 2. No - ileus is due to/associated with appendectomy. 3. Other, with explanation of the clinical findings. 4. Clinically undetermined, no explanation for the clinical findings. PHYSICIAN RESPONSE Manifestation due to/assoic: Other,explanation/clinical finding Explanation of clincal finding associated with appendectomy however also other confounding factors including lack of ambulation secondary to dementia and language barrier. also including hypokalemia. Please remember a lack of response to the above will prompt a phone page by [facility]/Coding staff. In responding to this query, please exercise your independent professional alessandro gment. The purpose of this communication is to more accurately reflect the complexity of your patients condition. The fact that a question is asked does not imply that any particular answer is desired or expected. Thank you for your timely response to this clarification. Requestors name: Kortney THIS PHYSICIAN QUERY FORM IS A PERMANENT PART OF THE MEDICAL RECORD KORTNEY MENDEZ Nov 18, 2020 09:34 AMMON GUAJARDO MD Nov 18, 2020 10:44
--- NOTE | 2020-11-20 09:44 | Discharge Summary ---
Diagnosis/Chief Complaint Date of Admission Nov 10, 2020 at 04:30 Date of Discharge Nov 16, 2020 at 11:50 Discharge Date: Nov 16, 2020 Discharge Diagnosis 1. Post-op Ileus-resolved 2. S/P Lap Appy due to Perforated Appendicitis 3. Dementia with Behavior Disorder-stable 4. Hypertension 5. Hypokalemia-improved 6. Leukocytosis-resolved 7. Edema/Third Spacing-resolved Discharge Summary Hospital Course Was the Problem List Reviewed?: Yes Hospital Course This is a 75yo F resident at a long-term in [facility] who originally presented to the ER at [facility] with abdominal pain s/p lap appendectomy for appendicitis with rupture on 11/05/[address] Moncada. She had been discharged back to the [place] that day and was sent back to the ER later that night due to severe abdominal pain with distention. She was found to have a possible early bowel obstruction vs a postop ileus so she was transferred to the ER at [facility]. She was admitted with surgical consult by Dr. Moncada and was found to have post op ileus. Pt has a history of T2DM, HTN, chronic vertigo from previous cerebellar stroke, and dementia with behavior disorder. History was difficult to obtain due to language barrier or dementia. On admission, pt abdomen was disten ded and hard with diffuse tenderness along with hypokalemia and leukocytosis and edema postoperatively. Pt was given zosyn, lasix, and IV replacement potassium. Her WBC was down to 9.7 by discharge and she was afebrile. He potassium was improved to 3.5 by discharge. Her pain was much better controlled and she was passing frequent loose stools. Pt also had dysphagia and diet was advanced as tolerated. Her home meds were restarted. Her blood pressure was elevated even after starting her home dose of metoprolol so losartan was added as well and her blood pressure stabilized. She did have lethargy after her depakote was resumed so this was discontinued and will not be restarted on discharge. She also had an apparent reaction to zofran requiring benadryl so this will also be discontinued on discharge. Her BRUCE drain remained stable with serosanguinous discharge and was serous discharge by the time of admit with much less output. Pt reported feeling much better upon discharge to detention with pt/ot and speech therapy. Her light catheter will be left in place until the BRUCE drain is discontinued then the light catheter will be discontinued as well. She will follow up with Dr. Moncada next week to remove the BRUCE drain and follow up with me in 2 weeks. Procedures None. Consultations Dr. Moncada and Adebayo covered on weekend Discharge Physical Examination Allergies: Coded Allergies: No Known Drug Allergies (Verified , 04/29/15) Vitals & I&Os Vital Signs Date Time Temp Pulse Resp B/P (MAP) Pulse Ox O2 Delivery O2 Flow Rate FiO2 11/16/20 12:05 36.4 101 18 145/82 99 Room Air 0.00 General Appearance: Alert, No Acute Distress Respiratory: Clear to Auscultation Cardiovascular: Regular Rate Abdominal: Normal Bowel Sounds, Soft, No Tenderness, Other (BRUCE drain with minimal serous output) Extremities: No Clubbing, No Cyanosis, No Edema Skin: No Rashes Psych/Mental Status: Mood NL Discharge Home Medications Reviewed and agree with Discharge Medication list on patient's Discharge I nstruction sheet Instructions to Patient/Family Please see electronic discharge instructions given to patient. Supervisory-Addendum Brief Verification & Attestation Participated in pt care: history, physical Personally performed: exam, history, supervision of care Care discussed with: Medical Student Procedures: n/a Results interpretation: Verified all documentation Patient seen and examined and agree with above assessment and plan of care. Back to [place] to do detention with PT/OT and SANDI MART Nov 20, 2020 09:44
== END 2020-11-16 11:50 | DRG 393 ==
LOC: EDUNIT# 01:41 → ER 01:42 → 4TH 04:30 → EDLOC 04:30 → 4TH 11-12 14:59
PROVIDERS: ADMIT Surgery; ATTEND Surgery
DX: K91.89 Other postprocedural complications and disorders of digestive system (principal); E43 Unspecified severe protein-calorie malnutrition; K56.7 Ileus, unspecified; F03.91 Unspecified dementia, unspecified severity, with behavioral disturbance; E87.1 Hypo-osmolality and hyponatremia; E87.6 Hypokalemia; Z68.23 Body mass index [BMI] 23.0-23.9, adult; R26.81 Unsteadiness on feet; Z99.3 Dependence on wheelchair; R60.9 Edema, unspecified; E11.9 Type 2 diabetes mellitus without complications; K21.9 Gastro-esophageal reflux disease without esophagitis; I10 Essential (primary) hypertension; E78.00 Pure hypercholesterolemia, unspecified; I35.9 Nonrheumatic aortic valve disorder, unspecified; M81.0 Age-related osteoporosis without current pathological fracture; F41.9 Anxiety disorder, unspecified; D64.9 Anemia, unspecified; K57.90 Diverticulosis of intestine, part unspecified, without perforation or abscess without bleeding; Z79.84 Long term (current) use of oral hypoglycemic drugs; I69.398 Other sequelae of cerebral infarction; R42 Dizziness and giddiness; Z87.820 Personal history of traumatic brain injury
CPT/HCPCS: 36410; 36415; 51702; 71045; 74176; 76937; 80048; 80053; 80164; 81000; 82947; 83735; 83880; 85025; 85027; 87324; 87449; 93041; 94640; 96361; 96374; 96376

== ENCOUNTER 2020-11-18 11:04 | Emergency (ER) | payer MEDICARE ==
[~2020-11-18 11:04] MED LIST changes: +ALPR0.254 PO; +PANT40TA52 PO; +POTA20TA15 PO
[2020-11-18 11:24] LABS: HEMATOCRIT 40 % (35-52); MEAN CORPUSCULAR HEMOGLOBIN 30 pg (25-34); MEAN CORPUSCULAR HGB CONC 33 g/dL (32-36); MEAN CORPUSCULAR VOLUME 91 fL (80-99)
[2020-11-18 11:25] LABS: BASOPHILS % (AUTO) 0 % (0-10); EOSINOPHILS # (AUTO) 0.1 10^3/uL (0.0-0.3); EOSINOPHILS % (AUTO) 1 % (0-10); LYMPHOCYTES # (AUTO) 1.3 X 10^3 (1.0-4.0); LYMPHOCYTES % (AUTO) 10 % (12-44); MEAN PLATELET VOLUME 9.5 fL (9.0-12.2); MONOCYTES # (AUTO) 0.6 X 10^3 (0.0-1.0); MONOCYTES % (AUTO) 4 % (0-12); NEUTROPHILS # (AUTO) 10.9 X 10^3 (1.8-7.8); NEUTROPHILS % (AUTO) 83 % (42-75); PLATELET COUNT 517 10^3/uL (130-400)
[2020-11-18 11:26] LABS: BASOPHILS # (AUTO) 0.1 10^3/uL (0.0-0.1)
--- NOTE | 2020-11-18 11:27 | ED Neurological Problem ---
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 EMS is unable to give much more report than this, glucose was greater than 100, vitals normal. She has been afebrile. She does have a drain in her abdomen as well as a Vyas catheter in place new since her recent discharge from her appendectomy. She was on antibiotics in the hospital. When asked if she is in pain she does tell me yes, but is unable to tell me where. Further elements of the history and physical are unable to be obtained due to her previous TBI. Allergies and Home Medications Allergies Coded Allergies: No Known Drug Allergies (Verified , 04/29/15) Patient Home Medication List Home Medication List Reviewed: Yes Acetaminophen (Tylenol 8 Hour) 650 Mg Tablet.er, 650 MG PO Q6H PRN for PAIN-MILD (1-4), (Reported) Entered as Reported by: RASHID ODEN on 11/05/20 1203 Alprazolam (Xanax) 0.25 Mg Tablet, 0.125 MG PO Q8H PRN for ANXIETY/RESTLESSNESS, (Reported) Entered as Reported by: RASHID ODEN on 11/05/20 1202 Amoxicillin/Potassium Clav (Augmentin 875-125 Tablet) 1 Each Tablet, 1 EACH PO BID, (Reported) Entered as Reported by: RASHID ODEN on 11/10/20 0841 Cholecalciferol (Vitamin D3) (Vitamin D3) 25 Mcg Capsule, 50 MCG PO DAILY, (Reported) Entered as Reported by: RASHID ODEN on 11/05/20 1202 Hydrocodone/Acetaminophen (Hydrocodone-Acetamin 5-325 mg) 1 Each Tablet, 1 TAB PO Q4H PRN for PAIN-MODERATE (5-7), (Reported) Entered as Reported by: RASHID ODEN on 11/10/20 0841 Magnesium Hydroxide (Milk of Magnesia) 400 Mg/5 Ml Oral.susp, 30 ML PO DAILY PRN for CONSTIPATION-7TH LINE, (Reported) Entered as Reported by: RASHID ODEN on 11/05/20 1203 Meclizine HCl (Meclizine HCl) 25 Mg Tablet, 25 MG PO Q8H PRN for DIZZINESS, (Reported) Entered as Reported by: RASHID ODEN on 11/05/20 120 Metoprolol Succinate (Metoprolol Succinate) 25 Mg Tab.er.24h, 25 MG PO BID Prescribed by: NICANOR ESTRELLA on 11/16/20 0837 Oxybutynin Chloride (Oxybutynin Chloride) 5 Mg Tablet, 5 MG PO DAILY, (Reported) Entered as Reported by: RASHID ODEN on 11/05/20 120 Pantoprazole Sodium (Pantoprazole Sodium) 40 Mg Tablet.dr, 40 MG PO DAILY Prescribed by: NICANOR ESTRELLA on 11/16/20 08 Potassium Chloride (Potassium Chloride) 20 Meq Tab.er.prt, 20 MEQ PO DAILY Prescribed by: NICANOR ESTRELLA on 11/16/20 0839 Rosuvastatin Calcium (Crestor) 10 Mg Tablet, 10 MG PO HS, (Reported) Entered as Reported by: RASHID ODEN on 11/05/20 120 Venlafaxine HCl (Venlafaxine HCl ER) 75 Mg Tab.er.24, 75 MG PO DAILY, (Reported) Entered as Reported by: RASHID ODEN on 11/05/20 121 Zinc (Zinc) 50 Mg Tablet, 50 MG PO DAILY, (Reported) Entered as Reported by: RASHID ODEN on 11/05/20 120 lidocaine HCL (lidocaine HCL) 1 Each Adh..patch, 1 EACH TP DAILY, (Reported) Entered as Reported by: RASHID ODEN on 11/05/20 120 Discontinued Medications ALPRAZolam (ALPRAZolam) 0.25 Mg Tablet, 0.25 MG PO HS, (Reported) Entered as Reported by: RASHID ODEN on 11/10/20 0841 Divalproex Sodium (Depakote) 250 Mg Tablet.dr, 250 MG PO HS, (Reported) Entered as Reported by: RASHID ODEN on 11/05/20 1210 Metformin HCl (Metformin HCl) 500 Mg Tablet, 500 MG PO DAILY, (Reported) Entered as Reported by: RASHID ODEN on 11/05/20 1202 Ondansetron HCl (Ondansetron HCl) 4 Mg Tablet, 4 MG PO Q4H PRN for NAUSEA/VOMITING-1ST LINE, (Reported) Entered as Reported by: RASHID AKSHAT on 11/05/20 1202 Review of Systems Review of Systems Constitutional: no symptoms reported; No fever Unable to be obtained due to the patient's previous brain injury Past Buratjd-Eldspj-Mpzudp Hx Immunizations Up To Date Tetanus Booster (TDap): More than 5yrs First/Initial COVID19 Vaccinat: UNKNOWN Second COVID19 Vaccination Scott: UNKNOWN Seasonal Allergies Seasonal Allergies: No Past Medical History Surgery/Hospitalization HX: -APPENDECTOMY / PERFORATED APPENDIX 11/04/[address] GUAJARDO -RIGHT HIP FRACTURE/ORIF 10/[address] PEÑA HERNANDEZ -FALL WITH SKULL/TEMPORAL BONE FRACTURE AND INTRACRANIAL BLEED/SUBARACHNOID BLEED 12/2017--SENT TO [facility], NO SURGERY. Surgeries: Yes (EGD/COLONOSCOPY 04/2015) Appendectomy, Orthopedic Respiratory: No Currently Using CPAP: No Currently Using BIPAP: No Cardiac: Yes (AORTIC VALVE DISEASE) High Cholesterol, Hypertension, Valvular Heart Disease Neurological: Yes (TRAUMATIC SUBARACHNOID/SUBDURAL HEMORRHAGE) Dementia, Stroke, TIA, Traumatic Brain Injury, Vertigo [employer] History: Menopausal Genitourinary: No Gastrointestinal: Yes (PERFORATED APPENDIX 11/04/20; FATTY LIVER DISEASE) Gastroesophageal Reflux, Liver Disease/Jaundice, Diverticulosis, Hemorrhoids, Hiatal Hernia Musculoskeletal: Yes (FREQUENT FALLS; RIGHT HIP FRACTURE) Osteoporosis, Fractures Endocrine: Yes Diabetes, Non-Insulin dep HEENT: No Cancer: No Psychosocial: Yes Anxiety Integumentary: No Blood Disorders: Yes (ANEMIA) Family Medical History Patient reports no known family medical history. Diabetes Physical Exam Vital Signs Vital Signs - First Documented 11/18/20 11:10 Temp 36.3 Pulse 88 Resp 16 B/P (MAP) 160/80 (106) Pulse Ox 97 O2 Delivery Room Air Capillary Refill : Height, Weight, BMI Height: 5'0.00" Weight: 118lbs. 1.0oz. 53.580847kd; 23.01 BMI Method:Stated General Appearance: WD/WN, no apparent distress HEENT: PERRL/EOMI, normal ENT inspection, pharynx normal Neck: non-tender, full range of motion, supple, normal inspection Respiratory: chest non-tender, lungs clear, normal breath sounds, no respiratory distress, no accessory muscle use Cardiovascular: regular rate, rhythm, no edema, no murmur Gastrointestinal: normal bowel sounds, soft; No guarding, No rebound; tenderness (Mild lower abdominal tenderness), other (Suprapubic placed BRUCE drain draining scant amount of serosanguineous fluid) Genital/Rectal: other (Vyas in place draining clear yellow fluid) Back: normal inspection, no CVA tenderness, no vertebral tenderness Extremities: normal range of motion, non-tender, normal inspection, no pedal edema, no calf tenderness, normal capillary refill Neurologic/Psychiatric: other (Baseline weaker on the right side, but moving all extremities, nodding and answering some questions but not really talking, no facial asymmetry) Skin: normal color, warm/dry Lymphatic: no adenopathy Progress/Results/Core Measures Results/Orders Lab Results Laboratory Tests Test 11/18/20 11:15 11/18/20 12:05 Range/Units White Blood Count 13.0 H 4.3-11.0 10^3/uL Red Blood Count 4.39 3.80-5.11 10^6/uL Hemoglobin 13.0 11.5-16.0 g/dL Hematocrit 40 35-52 % Mean Corpuscular Volume 91 80-99 fL Mean Corpuscular Hemoglobin 30 25-34 pg Mean Corpuscular Hemoglobin Concent 33 32-36 g/dL Red Cell Distribution Width 13.8 10.0-14.5 % Platelet Count 517 H 130-400 10^3/uL Mean Platelet Volume 9.5 9.0-12.2 fL Immature Granulocyte % (Auto) 1 % Neutrophils (%) (Auto) 83 H 42-75 % Lymphocytes (%) (Auto) 10 L 12-44 % Monocytes (%) (Auto) 4 0-12 % Eosinophils (%) (Auto) 1 0-10 % Basophils (%) (Auto) 0 0-10 % Neutrophils # (Auto) 10.9 H 1.8-7.8 X 10^3 Lymphocytes # (Auto) 1.3 1.0-4.0 X 10^3 Monocytes # (Auto) 0.6 0.0-1.0 X 10^3 Eosinophils # (Auto) 0.1 0.0-0.3 10^3/uL Basophils # (Auto) 0.1 0.0-0.1 10^3/uL Immature Granulocyte # (Auto) 0.1 0.0-0.1 10^3/uL Sodium Level 138 135-145 MMOL/L Potassium Level 4.0 3.6-5.0 MMOL/L Chloride Level 99 98-107 MMOL/L Carbon Dioxide Level 28 21-32 MMOL/L Anion Gap 11 5-14 MMOL/L Blood Urea Nitrogen 14 7-18 MG/DL Creatinine 0.65 0.60-1.30 MG/DL Estimat Glomerular Filtration Rate 89 BUN/Creatinine Ratio 22 Glucose Level 135 H 70-105 MG/DL Calcium Level 8.7 8.5-10.1 MG/DL Corrected Calcium 9.2 8.5-10.1 MG/DL Total Bilirubin 0.3 0.1-1.0 MG/DL Aspartate Amino Transf (AST/SGOT) 24 5-34 U/L Alanine Aminotransferase (ALT/SGPT) 67 H 0-55 U/L Alkaline Phosphatase 99 40-136 U/L Total Protein 7.5 6.4-8.2 GM/DL Albumin 3.4 3.2-4.5 GM/DL Urine Color YELLOW Urine Clarity CLEAR Urine pH 8.0 5-9 Urine Specific [place] <=1.005 1.016-1.022 Urine Protein NEGATIVE NEGATIVE Urine Glucose (UA) NEGATIVE NEGATIVE Urine Ketones TRACE H NEGATIVE Urine Nitrite NEGATIVE NEGATIVE Urine Bilirubin NEGATIVE NEGATIVE Urine Urobilinogen 0.2 < = 1.0 MG/DL Urine Leukocyte Esterase NEGATIVE NEGATIVE Urine RBC (Auto) 2+ H NEGATIVE Urine RBC 5-10 H /HPF Urine WBC NONE /HPF Urine Squamous Epithelial Cells NONE /HPF Urine Crystals NONE /LPF Urine Bacteria NEGATIVE /HPF Urine Casts NONE /LPF Urine Mucus NEGATIVE /LPF Urine Culture Indicated NO My Orders Orders - CORIE PARIS MD Ct Abdomen/Pelvis W (11/18/20 11:09) Ct Head Wo (11/18/20 11:09) Cbc With Automated Diff (11/18/20 11:09) Comprehensive Metabolic Panel (11/18/20 11:09) Ua Culture If Indicated (11/18/20 11:09) Chest 1 View Ap/Pa Only (11/18/20 11:09) Iohexol Injection (Omnipaque 350 Mg/Ml 1 (11/18/20 12:00) Received Contrast (Hold Metformin- Contr (11/18/20 12:00) Sodium Chloride Flush (Catheter Flush Sy (11/18/20 12:00) Ns (Ivpb) (Sodium Chloride 0.9% Ivpb Bag (11/18/20 12:00) Medications Given in ED Current Medications Medications Dose Ordered Sig/Angelica Route Start Time Stop Time Status Last Admin Dose Admin Iohexol 100 ml ONCE ONCE IV 11/18/20 12:00 11/18/20 12:01 DC 11/18/20 11:54 100 ML Sodium Chloride 10 ml NEEDED PRN IV 11/18/20 12:00 11/18/20 11:54 10 ML Sodium Chloride 100 ml ONCE ONCE IV 11/18/20 12:00 11/18/20 12:01 DC 11/18/20 11:54 100 ML Vital Signs/I&O 11/18/20 11:10 Temp 36.3 Pulse 88 Resp 16 B/P (MAP) 160/80 (106) Pulse Ox 97 O2 Delivery Room Air Progress Progress Note : Progress Note 75-year-old female with above history coming in due to altered mental status. ABCs were intact and vitals were stable on presentation. Physical exam significant for some mild lower abdominal tenderness which is likely appropriate secondary to her recent appendectomy now with a drain in place. Given she essentially is nonverbal however, with recent surgery, now more altered per her nursing staff at her facility, we will get a CT of her abdomen and pelvis to assess for infection such as a new fluid collection as a potential cause for her being more altered. Also get a CT of her head and chest x-ray for other signs of infection. Basic labs including urinalysis also ordered. Basic labs significant for a white blood count of 13 which has been near where it has been over the past several weeks, platelet count slightly elevated, normal electrolytes. CT with a small fluid collection above her uterus, otherwise all of her CT findings actually look improved from her most recent CT. I called and discussed the CT findings as well as her labs with her previous surgeon, and he is happy with these results, I would prefer for her to go back to her facility. CT head without any acute changes, chest x-ray without any acute changes as well, and overall she is near her baseline which is not very functional. Given we have done a very thorough work-up, have not found any acute findings that warrant intervention, it is possible she is still having some mental status changes from anesthesia versus hospital admissions and waxing and waning delirium. I believe she is stable for discharge with outpatient follow- up. This is especially given she is taken care of 29/08 by nursing staff. Diagnostic Imaging Diagonstic Imaging: Xray (chest), CT (head/abd/pelv) Comments [facility] [place] [place] NAME: DARRICK GEORGE [facility] REC#: [id number] PT STATUS: REG ER : 1945 PHYSICIAN: CORIE PARIS MD ADMIT DATE: 11/18/20/ER FS Draft Date of Exam:11/18/20 CT HEAD WO CLINICAL INDICATION: Patient with altered mental status. Recent laparoscopic appendectomy. Patient has history of stroke previously. EXAM: Axial CT scan of the brain without IV contrast with coronal and sagittal reformatted images. Auto Exposure Controls were utilized during the CT exam to meet ALARA standards for radiation dose reduction. COMPARISON: Head CT without contrast dated 11/03/2020. FINDINGS: There is no evidence of acute cerebral infarct, intracranial hemorrhage, or gross mass effect. Stable small chronic cerebral infarct involving the left frontal lobe. Stable patchy and confluent areas of low-attenuation white matter changes involving both cerebral hemispheres and periventricular regions, likely representing chronic small vessel ischemic disease. The brain parenchymal volume appears appropriate for patient's age. There is normal lima-white matter distinction. There is no significant midline shift or herniation. There is no evidence of hydrocephalus. The basal cisterns are unremarkable. The skull, extracranial soft tissue, and orbits are unremarkable. The paranasal sinuses are unremarkable. Temporal bones show no significant abnormality. IMPRESSION: 1: Stable CT scan of the brain with no evidence of interval acute intracranial process. 2: Stable small chronic cerebral infarct involving the left frontal lobe. Dictated on workstation # [id number] Dict: 11/18/20 1149 Trans: 11/18/20 1202 AS6 [id number] Interpreted by: EARL LOUISE MD Electronically signed by: [facility] [place] NAME: DARRICK GEORGE [facility] REC#: [id number] PT STATUS: REG ER : 1945 PHYSICIAN: CORIE PARIS MD ADMIT DATE: 11/18/20/ER FS Draft Date of Exam:11/18/20 CT ABDOMEN/PELVIS W PROCEDURE: CT abdomen and pelvis with contrast. TECHNIQUE: Multiple contiguous axial images were obtained through the abdomen and pelvis after administration of intravenous contrast. Auto Exposure Controls were utilized during the CT exam to meet ALARA standards for radiation dose reduction. All CT scans use one or more of the following dose optimizing techniques: automated exposure control, MA and/or KvP adjustment based on patient size and exam type or iterative reconstruction. INDICATION: Recent laparoscopic appendectomy. Patient complains of abdominal pain. Correlation is made with recent CT from 11/10/2020. Imaging through lung bases does show some subsegmental atelectasis. There is trace pleural fluid in both bases. The pleural effusions have reduced in size since examination from 11/10/2020. The liver and gallbladder are unremarkable. There is no biliary ductal dilatation. Pancreas and spleen are unremarkable. No adrenal mass is detected. Kidneys are unremarkable. Aorta is nonaneurysmal. Previously noted fluid-filled and dilated small bowel loops has significantly improved. There is a right-sided abdominal drain which has the tip in the right upper quadrant just inferior to the gallbladder. Bladder is decompressed by Vyas catheter. Uterus unremarkable. There is a small fluid collection just cephalad to the uterus in the right para-midline location measuring 2.3 x 1.9 cm. This is adjacent to the rectosigmoid junction. This is not percutaneously accessible. No other fluid collections are seen. There is no free air. IMPRESSION: Postoperative changes. Bilateral pleural effusions and a fluid filled distended small bowel has improved since CT study from one week earlier. There is a very small right para midline pelvic fluid collection, as described. This is not amenable to percutaneous access and continued follow-up would be recommended. Dictated on workstation # [id number] Dict: 11/18/20 1154 Trans: 11/18/20 1201 [facility] [id number] Interpreted by: EDMOND CASTANEDA MD Electronically signed by: Departure Impression Primary Impression: Altered mental status Qualified Codes: R41.82 - Altered mental status, unspecified Disposition: 01 HOME, SELF-CARE Condition: Stable Departure-Patient Inst. Decision time for Depature: 12:49 Referrals: NICANOR ESTRELLA DO (PCP/Family) Primary Care Physician Patient Instructions: Altered Mental Status (DC) Add. Discharge Instructions: The patient was seen in the emergency department for mental status changes in the past week. She had a CT of her abdomen and pelvis which has improved since her most recent CT. Chest x-ray was normal and CT head was normal as well for her. Labs were all reassuring including normal electrolytes. She does not have a UTI. We recommend outpatient follow-up and continued nursing care. All discharge instructions reviewed with patient and/or family. Voiced understanding. CORIE PARIS MD Nov 18, 2020 11:27
[2020-11-18 11:45] LABS: BILIRUBIN,TOTAL 0.3 MG/DL (0.1-1.0); CALCIUM 8.7 MG/DL (8.5-10.1); CREATININE SERUM 0.65 MG/DL (0.60-1.30)
[2020-11-18 11:46] LABS: ALBUMIN 3.4 GM/DL (3.2-4.5); TOTAL PROTEIN 7.5 GM/DL (6.4-8.2)
--- NOTE | 2020-11-18 11:58 | Diagnostic Imaging Report ---
INDICATION: Altered mental status. TECHNIQUE: Single view chest 11:31 AM. CORRELATION STUDY: 11/11/2020 FINDINGS: The heart size, mediastinal configuration and pulmonary vascularity are within normal limits. The lungs are clear with no consolidating infiltrate. There is no significant effusion or pneumothorax. IMPRESSION: 1. Negative for acute abnormality of the chest. Dictated by: Dictated on workstation # [id number]
[2020-11-18] MEDS ORDERED: HOLD METFORMIN - RECEIVED CONTRAST 20 ML VIAL IV SCH (12:00)
[2020-11-18] MEDS ORDERED: IOHEXOL 350 MG/ML 100 ML (OMNIPAQUE 350) VIAL IV ONE (12:00)
[2020-11-18] MEDS ORDERED: CATHETER FLUSH 10 ML SYR IV PRN (12:00)
[2020-11-18] MEDS ORDERED: NS 100 ML (IVPB) BAG IV ONE (12:00)
--- NOTE | 2020-11-18 12:02 | Diagnostic Imaging Report ---
PROCEDURE: CT abdomen and pelvis with contrast. TECHNIQUE: Multiple contiguous axial images were obtained through the abdomen and pelvis after administration of intravenous contrast. Auto Exposure Controls were utilized during the CT exam to meet ALARA standards for radiation dose reduction. All CT scans use one or more of the following dose optimizing techniques: automated exposure control, MA and/or KvP adjustment based on patient size and exam type or iterative reconstruction. INDICATION: Recent laparoscopic appendectomy. Patient complains of abdominal pain. Correlation is made with recent CT from 11/10/2020. Imaging through lung bases does show some subsegmental atelectasis. There is trace pleural fluid in both bases. The pleural effusions have reduced in size since examination from 11/10/2020. The liver and gallbladder are unremarkable. There is no biliary ductal dilatation. Pancreas and spleen are unremarkable. No adrenal mass is detected. Kidneys are unremarkable. Aorta is nonaneurysmal. Previously noted fluid-filled and dilated small bowel loops has significantly improved. There is a right-sided abdominal drain which has the tip in the right upper quadrant just inferior to the gallbladder. Bladder is decompressed by Vyas catheter. Uterus unremarkable. There is a small fluid collection just cephalad to the uterus in the right para-midline location measuring 2.3 x 1.9 cm. This is adjacent to the rectosigmoid junction. This is not percutaneously accessible. No other fluid collections are seen. There is no free air. IMPRESSION: Postoperative changes. Bilateral pleural effusions and a fluid filled distended small bowel has improved since CT study from one week earlier. There is a very small right para midline pelvic fluid collection, as described. This is not amenable to percutaneous access and continued follow-up would be recommended. Dictated by: Dictated on workstation # [id number]
--- NOTE | 2020-11-18 12:02 | Diagnostic Imaging Report ---
CLINICAL INDICATION: Patient with altered mental status. Recent laparoscopic appendectomy. Patient has history of stroke previously. EXAM: Axial CT scan of the brain without IV contrast with coronal and sagittal reformatted images. Auto Exposure Controls were utilized during the CT exam to meet ALARA standards for radiation dose reduction. COMPARISON: Head CT without contrast dated 11/03/2020. FINDINGS: There is no evidence of acute cerebral infarct, intracranial hemorrhage, or gross mass effect. Stable small chronic cerebral infarct involving the left frontal lobe. Stable patchy and confluent areas of low-attenuation white matter changes involving both cerebral hemispheres and periventricular regions, likely representing chronic small vessel ischemic disease. The brain parenchymal volume appears appropriate for patient's age. There is normal lima-white matter distinction. There is no significant midline shift or herniation. There is no evidence of hydrocephalus. The basal cisterns are unremarkable. The skull, extracranial soft tissue, and orbits are unremarkable. The paranasal sinuses are unremarkable. Temporal bones show no significant abnormality. IMPRESSION: 1: Stable CT scan of the brain with no evidence of interval acute intracranial process. 2: Stable small chronic cerebral infarct involving the left frontal lobe. Dictated by: Dictated on workstation # [id number]
[2020-11-18 12:18] LABS: CLARITY,URINE CLEAR; COLOR,URINE YELLOW; GLUCOSE, URINE (UA) NEGATIVE (NEGATIVE); PROTEIN,URINE NEGATIVE (NEGATIVE)
[2020-11-18 12:19] LABS: BACTERIA,URINE NEGATIVE /HPF; BILIRUBIN,URINE NEGATIVE (NEGATIVE); KETONES,URINE TRACE (NEGATIVE); LEUKOCYTE ESTERASE ,URINE NEGATIVE (NEGATIVE); NITRITE,URINE NEGATIVE (NEGATIVE)
[2020-11-18 13:08] VITALS: BP 164/79
== END 2020-11-18 13:56 | disposition home or self-care (01) ==
LOC: EDUNIT# 11:04 → ER FS 11:06
DX: R41.82 Altered mental status, unspecified (principal); I10 Essential (primary) hypertension; F03.90 Unspecified dementia, unspecified severity, without behavioral disturbance, psychotic disturbance, mood disturbance, and anxiety; F41.9 Anxiety disorder, unspecified; E11.9 Type 2 diabetes mellitus without complications; K21.9 Gastro-esophageal reflux disease without esophagitis; E78.00 Pure hypercholesterolemia, unspecified; Z87.820 Personal history of traumatic brain injury; Z79.84 Long term (current) use of oral hypoglycemic drugs; Z79.899 Other long term (current) drug therapy
CPT/HCPCS: 36415; 70450; 71045; 74177; 80053; 81000; 85025

== ENCOUNTER → 2021-01-08 | Outpatient (CLI) | payer MEDICARE ==
[~2021-01-08] MED LIST changes: +POTA-179 PO; -POTA20TA15 PO
--- NOTE | 2021-01-08 12:06 | Diagnostic Imaging Report ---
INDICATION: Dysphagia. TECHNIQUE: The procedure was performed in conjunction with Speech Pathology. Video fluoroscopy was performed during the swallowing of barium of multiple consistencies. Patient ingested thin as well as nectar consistency through a straw. Patient ingested banana, ground beef, cracker, and applesauce consistency. A total of 1 minute and 6 seconds of fluoroscopic time was utilized. FINDINGS: Oral phase was unremarkable. There was an episode of laryngeal penetration during the swallowing of thin liquid through a straw. All other consistencies were unremarkable. No significant vallecular residue was seen. There was normal epiglottic tilt and laryngeal elevation. No aspiration was observed. IMPRESSION: Single episode of laryngeal penetration during the swallowing of thin liquid through a straw. The study was otherwise unremarkable. Dictated by: Dictated on workstation # [id number]
== END ==
LOC: RAD 10:06
PROVIDERS: ATTEND Family Medicine
DX: T17.308A Unspecified foreign body in larynx causing other injury, initial encounter (principal); R13.12 Dysphagia, oropharyngeal phase
CPT/HCPCS: 74230

== ENCOUNTER → 2021-11-08 | Outpatient (CLI) | payer MEDICARE ==
[~2021-11-08] MED LIST changes: +NF-CRES10T PO; -ROSU10TA22 PO
--- NOTE | 2021-11-08 10:57 | Diagnostic Imaging Report ---
INDICATION: Dysphagia. DETAILS OF THE PROCEDURE: The procedure was performed in conjunction with Speech Pathology. Video fluoroscopy was performed during the swallowing of barium in multiple consistencies. A total of 1.3 minutes of fluoroscopic time was utilized. The patient ingested thin and nectar thick consistency with a spoon and through a straw as well as with a cup. There were episodes of shallow laryngeal penetration during the swallowing of the thin and nectar consistency with a straw; however, no penetration or aspiration was observed during the swallowing with a cup. Mechanical soft and applesauce consistencies were unremarkable. There is mild early spillover with multiple consistencies. No residue is detected. There is normal epiglottic tilt. IMPRESSION: Essentially unremarkable modified barium swallow study apart from an episode of shallow laryngeal penetration during the swallowing of thin and nectar consistency through a straw. No aspiration was observed. Dictated by: Dictated on workstation # [id number]
== END ==
LOC: RAD 10:00
PROVIDERS: ATTEND Family Medicine
DX: R13.12 Dysphagia, oropharyngeal phase (principal); R09.89 Other specified symptoms and signs involving the circulatory and respiratory systems
CPT/HCPCS: 74230